=== PATIENT | female | born 1965 | race Caucasian/White ===

== ENCOUNTER 2017-07-10 13:55 | Day surgery (SDC) | payer OTHER ==
[~2017-07-10] VITALS: Ht 167.6 cm; Wt 91.1 kg
[~2017-07-10 13:55] MED LIST: AMIO200T PO; GEMF600T PO; LOSA100T7 PO; METO-335 PO; RIVA20TA PO; SUMA100T9 PO
[2017-07-10] MEDS ORDERED: FUROSEMIDE (14:40)
[2017-07-10] MEDS ORDERED: LISINOPRIL (14:40)
[2017-07-10] MEDS ORDERED: SPIRONOLACTONE (14:40)
[2017-07-10 14:43] VITALS: Ht 167.6 cm; Wt 91.1 kg
[2017-07-10 15:54] VITALS: BP 134/70; PULSE 67; RESP 20
[2017-07-10] MEDS ORDERED: MIDAZOLAM 1 MG/ML 2 ML INJ ONE ×3 (17:17)
[2017-07-10] MEDS ORDERED: FENTAnyl 50 MCG/ML VIAL ONE (17:17)
--- NOTE | 2017-07-10 17:26 | OPPN ---
Date/Time of Note Date/Time of Note DATE: 07/10/17 TIME: 17:21 Proc Note GI Procedure Date 07/10/17 Indication: screening/surveillance Pre-procedure Diagnosis CRC screening Post-procedure Diagnosis Impression: More than 5 cm semicircumferential mass sigmoid colon. Biopsied and localization tattoo applied. 3 mm polyp in the proximal ascending colon. Ablated Otherwise normal colonoscopy to cecum Moderate-sized internal hemorrhoids. Plan: Review pathology as soon as available Referral for CT abdomen and pelvis with oral and IV contrast Surgical and oncological consults Surveillance colonoscopy in 1 year . Procedure Performed: Other (Colonoscopy plus ablation. Colonoscopy plus biopsies. Colonoscopy plus localization tattoo) Surgeon KRISTOPHER SCHMIDT MD [employer] none Anesthesia Type: MAC, moderate sedation (Versed 2 mg/fentanyl 5 mcg) Tourniquet Time none EBL none Transfusion required none Biopsy 1: Ascending colon polyp Biopsy 2: Mass sigmoid colon Grafts/Implants none Tubes/Drains none Complication(s) none Disposition: home Procedure Description After informed consent, with the patient/relatives understanding the procedure, its indications and potential risks and complications, including but not limited to: Allergic reaction, bleeding, perforation, infection, and after all pertinent questions were answered to the patient's satisfaction, the patient/ relatives signed the witnessed informed consent. Following this, premedication was administered slowly IV push under careful cardiovascular and respiratory monitoring with pulse OXIMETRY, automatic blood pressure, and surveillance monitor. Once the sedative effect was achieved, the patient was placed in the left lateral decubitus position, digital rectal examination was performed. The colonoscope was then introduced and advanced under visual control throughout all segments of the colon including: the rectum, sigmoid, descending colon, splenic flexure, transverse colon, hepatic flexure, ascending colon and finally reaching the cecum which was clearly identified by transillumination, finger indentation and the ileocecal valve. Careful examination of the mucosa of the lower gastrointestinal tract both on insertion as well as withdrawal of the instrument disclosed the following findings: PREPARATION QUALITY: [Adequate], RECTAL EXAM: The anorectal area was visualized examined and digital rectal examination performed with the following findings: No evidence of perirectal disease, no masses. COLONIC MUCOSA: The mucosa of all segments of the colon was carefully examined and showed the following findings: There is a 3 mm polyp in the proximal ascending colon. Ablated there is a mass in the sigmoid colon which is semi-circumferential measures more than 5 cm, he has clearly a malignant appearance. Multiple biopsies were obtained. Localization tattoo was applied to the distal margin of the lesion. Moderate size internal hemorrhoids otherwise the examined mucosa appears within normal limits. There is no evidence of inflammatory changes, diverticular formation, vascular malformation, or any other abnormality. The instrument was then withdrawn, the patient tolerated the procedure well and was transferred out of the Endoscopy Suite awake and in good condition to continue recovery under observation. Copies To: CC: KRISTOPHER SCHMIDT MD, MORDO MD Jul 10, 2017 17:26
[2017-07-10 18:11] VITALS: BP 140/68; RESP 14
== END 2017-07-10 18:10 | disposition home or self-care (01) ==
LOC: GIL 13:55
PROVIDERS: ATTEND Internal Medicine Gastroenterology
DX: Z12.11 Encounter for screening for malignant neoplasm of colon (principal); C18.7 Malignant neoplasm of sigmoid colon; D12.2 Benign neoplasm of ascending colon; K64.8 Other hemorrhoids; Z87.891 Personal history of nicotine dependence; I50.9 Heart failure, unspecified
CPT/HCPCS: 45380; 45388; 88305; J2250; J3010; Z7610

== ENCOUNTER 2017-07-23 22:42 | Inpatient (IN) | payer OTHER ==
[~2017-07-23] VITALS: Ht 167.6 cm; Wt 105.6 kg
[~2017-07-23 22:42] MED LIST changes: -AMIO200T PO; +FUROSEMIDE; -GEMF600T PO; +LISINOPRIL; -LOSA100T7 PO; -METO-335 PO; +SPIRONOLACTONE; -SUMA100T9 PO
[2017-07-24] MEDS ORDERED: SOD CHLORIDE 0.9% 500 ML IV STA (01:55)
[2017-07-24 02:40] LABS: ABNORMAL IP MESSAGE 1; HEMATOCRIT 22.6 % (37.0-47.0); MEAN CORPUSCULAR HEMOGLOBIN 21.5 pg (29.0-33.0); MEAN CORPUSCULAR HGB CONC 29.2 g/dl (32.0-37.0); MEAN CORPUSCULAR VOLUME 73.6 fl (82.0-101.0); MEAN PLATELET VOLUME 10.4 fl (7.4-10.4); PLATELET COUNT 319 10^3/UL (140-415); RED BLOOD COUNT 3.07 10^6/ul (4.20-5.40); RED CELL DISTRIBUTION WIDTH 14.2 % (11.5-14.5); RETICULOCYTE COUNT % 1.9 % (0.5-1.5); WHITE BLOOD COUNT 7.1 10^3/ul (4.8-10.8)
[2017-07-24 02:46] LABS: HEMOGLOBIN 6.6 g/dl (12.0-16.0); POSITIVE DIFF @See below
[2017-07-24 03:06] LABS: ALBUMIN 3.9 g/dl (3.3-4.9); ALBUMIN/GLOBULIN RATIO 1.21; BILIRUBIN,INDIRECT 1.4 mg/dl (0-1.1); BILIRUBIN,TOTAL 1.4 mg/dl (0.2-1.3); CREATININE 0.82 mg/dl (0.44-1.00); POTASSIUM 3.9 mmol/L (3.5-5.1); TOTAL PROTEIN 7.1 g/dl (6.1-8.1)
[2017-07-24] MEDS ORDERED: morphine 4 MG/ML VIAL IV STA ×2 (03:37→07:17)
[2017-07-24] MEDS ORDERED: ONDANSETRON 4 MG INJ IV STA (03:37)
[2017-07-24 03:49] LABS: EOSINOPHILS # 0.2 10^3/ul (0.0-0.5); MONOCYTE # 0.1 10^3/ul (0.3-0.9)
--- NOTE | 2017-07-24 04:38 | ERD ---
ER Documentation Chief Complaint Chief Complaint SEVERE WEAKNESS. BLOODY STOOLS. COLON CA DIAGNOSED 2 WKS AGO. HGB 7 HPI 51-year-old female coming in with complaints of severe weakness and bloody stools. Patient diagnosed colon cancer recently. She has noticed that her stools were dark and tarry along with blood streaks. No fevers no chills. No focal neurological complaints. No other current issues. Patient says weakness is worse when she gets up from a lying position. No syncope, no palpitations, no chest pain ROS All systems reviewed and are negative except as per history of present illness. Medications Home Meds Reported Medications [Furosemide] No Conflict Check 07/10/17 [Spironolactone] No Conflict Check 07/10/17 [Lisinopril] No Conflict Check 07/10/17 Rivaroxaban* (Xarelto*) 20 Mg Tablet, 20 MG PO DAILY, TAB 03/10/14 Allergies Allergies: Coded Allergies: Penicillins (Unverified Allergy, Unknown, 03/11/14) RE-ENTERED UNCODED ALLERGY CODED Sulfa (Sulfonamide Antibiotics) (Unverified Allergy, Unknown, 03/11/14) RE-ENTERED UNCODED ALLERGY CODED amoxicillin (Verified Allergy, Unknown, 03/10/14) codeine (Verified Allergy, Unknown, 03/10/14) hydrocodone bit (Verified Allergy, Unknown, 03/10/14) PMhx/Soc History of Surgery: Yes (RIGHT ANKLE, HYSTERECTOMY) Anesthesia Reaction: No Hx Neurological Disorder: No Hx Respiratory Disorders: No Hx Cardiac Disorders: No (HTN, CHF, AFIB) Hx Psychiatric Problems: No Hx Miscellaneous Medical Probl: No Hx Alcohol Use: No Hx Substance Use: Yes (QUIT MARIJUANA MARCH 2017) Hx Tobacco Use: Yes (QUIT CIGARETTES 30 YEARS AGO) Smoking Status: Former smoker Physical Exam Vitals Vital Signs Date Time Temp Pulse Resp B/P Pulse Ox O2 Delivery O2 Flow Rate FiO2 07/24/17 02:15 97.6 100 18 125/77 100 Room Air 07/24/17 01:05 98.6 69 18 117/72 100 Room Air 07/23/17 22:52 98.1 82 18 147/84 100 Physical Exam Const: [] Head: Atraumatic Eyes: Normal Conjunctiva ENT: Normal External Ears, Nose and Mouth. Neck: Full range of motion..~ No meningismus. Resp: Clear to auscultation bilaterally Cardio: Regular rate and rhythm, no murmurs Abd: Soft, non tender, non distended. Normal bowel sounds Skin: No petechiae or rashes Back: No midline or flank tenderness Ext: No cyanosis, or edema Neur: Awake and alert Psych: Normal Mood and Affect Result Diagram: 07/24/1722407/24/17 0225 Results 24 hrs Laboratory Tests Test 07/24/17 02:25 White Blood Count 7.110^3/ul Red Blood Count 3.0710^6/ul Hemoglobin 6.6g/dl Hematocrit 22.6% Mean Corpuscular Volume 73.6fl Mean Corpuscular Hemoglobin 21.5pg Mean Corpuscular Hemoglobin Concent 29.2g/dl Red Cell Distribution Width 14.2% Platelet Count 10044^3/UL Mean Platelet Volume 10.4fl Neutrophils % % Segmented Neutrophils % (Manual) 65% Band Neutrophils % (Manual) 2% Lymphocytes % % Lymphocytes % (Manual) 28% Monocytes % % Monocytes % (Manual) 2% Eosinophils % % Eosinophils % (Manual) 3% Basophils % % Nucleated Red Blood Cells % 0.0/100WBC Neutrophils # 10^3/ul Neutrophils # (Manual) 4.610^3/ul Band Neutrophils # 0.110^3/ul Absolute Lymphocytes (Manual) Pending Lymphocytes # 2.010^3/ul Monocytes # 0.110^3/ul Absolute Monocytes (Manual) Pending Eosinophils # 0.210^3/ul Basophils # 10^3/ul Nucleated Red Blood Cells # 10^3/ul Polychromasia 1+ Hypochromasia 1+ Microcytosis 1+ Absolute Reticulocyte Count 0.059X10^6 Percent Reticulocyte Count 1.9% Sodium Level 139mmol/L Potassium Level 3.9mmol/L Chloride Level 104mmol/L Carbon Dioxide Level 29mmol/L Anion Gap 10 Blood Urea Nitrogen 17mg/dl Creatinine 0.82mg/dl Glucose Level 92mg/dl Calcium Level 9.0mg/dl Total Bilirubin 1.4mg/dl Direct Bilirubin 0.00mg/dl Indirect Bilirubin 1.4mg/dl Aspartate Amino Transf (AST/SGOT) 18IU/L Alanine Aminotransferase (ALT/SGPT) 28IU/L Alkaline Phosphatase 56IU/L Lactate Dehydrogenase 376IU/L Total Protein 7.1g/dl Albumin 3.9g/dl Globulin 3.20g/dl Albumin/Globulin Ratio 1.21 Current Medications Medications (Trade) Dose Ordered Sig/Fela Route PRN Reason Start Time Stop Time Status Last Admin Dose Admin Sodium Chloride (NS) 500 ml @ 500 mls/hr Q1H STAT IV 07/24/17 01:55 07/24/17 02:54 DC 07/24/17 02:39 Morphine Sulfate (morphine) 4 mg ONCE STAT IV 07/24/17 03:37 07/24/17 03:39 DC 07/24/17 03:47 Ondansetron HCl (Zofran Inj) 4 mg ONCE STAT IV 07/24/17 03:37 07/24/17 03:39 DC 07/24/17 03:47 Procedures/MDM Medical decision-makin-year-old female with lower GI bleeding consistent with a history of colon cancer. Patient will be transfused and admitted to [facility] physician Dr. Danielle Departure Diagnosis: Primary Impression: GI bleed GI bleed type/associated pathology: unspecified gastrointestinal hemorrhage type Qualified Code: K92.2 - Gastrointestinal hemorrhage, unspecified gastrointestinal hemorrhage type Condition: Stable KHADIJAH SCHAFER Jul 24, 2017 04:38
[2017-07-24] MEDS ORDERED: FURO40TA4 PO (05:43)
[2017-07-24] MEDS ORDERED: SPIR25TA PO (05:43)
[2017-07-24] MEDS ORDERED: DIGO125T19 PO (05:43)
[2017-07-24] MEDS ORDERED: LISI20TA11 PO (05:43)
[2017-07-24] MEDS ORDERED: ACET-141 PO (05:45)
[2017-07-24] MEDS ORDERED: SIME180C4 PO (05:45)
[2017-07-24] MEDS ORDERED: IBUP200C PO (05:45)
[2017-07-24] MEDS ORDERED: LORA10TA3 PO (05:46)
[2017-07-24] MEDS ORDERED: ACETAMINOPHEN 325 MG TAB PO PRN ×2 (06:30→07:00)
[2017-07-24] MEDS ORDERED: SOD CHLORIDE 0.9% 250 ML IV* ONE (06:39)
[2017-07-24] MEDS ORDERED: ACETAMINOPHEN 325 MG TAB PO SCH (07:00)
[2017-07-24] MEDS ORDERED: FUROSEMIDE 40 MG INJ IV SCH (07:00)
[2017-07-24] MEDS ORDERED: DIPHENHYDRAMINE 25 MG CAP PO PRN (07:00)
[2017-07-24] MEDS: ONDANSETRON 4 MG INJ IV PRN ×4 (07:25→18:37)
[2017-07-24 07:38] LABS: ANISOCYTOSIS 2+ (0-0); EOSINOPHILS % (M) 1 % (0-7); IRON 24 ug/dl (35-150); MICROCYTOSIS 2+ (0-0); MONOCYTES % (M) 9 % (0-11); PLATELET ESTIMATE NORMAL; REACTIVE LYMPHOCYTES% (M) 3 % (0-0)
[2017-07-24 07:47] LABS: TOTAL IRON BINDING CAPACITY 518 ug/dl (241-421)
[2017-07-24 08:45] LABS: FOLATE 14.1 ng/ml (2.8-20.0)
[2017-07-24] MEDS: LORATADINE 10 MG TAB PO SCH (09:00)
[2017-07-24] MEDS: SPIRONOLACTONE 25 MG TAB PO SCH (09:00)
[2017-07-24] MEDS: LISINOPRIL 20 MG TAB PO SCH (09:00)
[2017-07-24 10:02] LABS: BASOPHILS % 0.5 % (0.0-2.0); EOSINOPHILS # 0.1 10^3/ul (0.0-0.5); EOSINOPHILS % 2.2 % (0.0-7.0); HEMATOCRIT 28.7 % (37.0-47.0); HEMOGLOBIN 8.9 g/dl (12.0-16.0); LYMPHOCYTES # 1.9 10^3/ul (0.8-2.9); LYMPHOCYTES % 31.6 % (15.0-51.0); MEAN CORPUSCULAR HEMOGLOBIN 23.4 pg (29.0-33.0); MEAN CORPUSCULAR VOLUME 75.3 fl (82.0-101.0); MEAN PLATELET VOLUME 10.1 fl (7.4-10.4); MONOCYTE # 0.4 10^3/ul (0.3-0.9); MONOCYTES % 6.6 % (0.0-11.0); NEUTROPHIL # 3.6 10^3/ul (1.6-7.5); NEUTROPHILS % 58.8 % (39.0-77.0); PLATELET COUNT 304 10^3/UL (140-415); RED BLOOD COUNT 3.81 10^6/ul (4.20-5.40); RED CELL DISTRIBUTION WIDTH 14.9 % (11.5-14.5)
[2017-07-24] MEDS: DEXTROSE 5%-0.9% NACL 1,000 ML IV SCH (11:28)
[2017-07-24 11:56] LABS: INR 0.97; PROTIME 12.9 Sec (12.2-14.2)
[2017-07-24 11:57] LABS: PARTIAL THROMBOPLASTIN TIME 25.9 Sec (25.0-35.0)
[2017-07-24] MEDS ORDERED: morphine 4 MG/ML VIAL IV PRN (12:27)
[2017-07-24 12:33] VITALS: TEMP 98.2
[2017-07-24 12:45] VITALS: BMI 33.2
--- NOTE | 2017-07-24 12:49 | HP ---
Date/Time of Note Date/Time of Note DATE: 07/24/17 TIME: 12:17 Assessment/Plan VTE Prophylaxis VTE Prophylaxis Intervention: SCD's Assessment/Plan Assessment/Plan 51 year old female with: 1. Rectal bleeding, bright red blood per rectum, significant symptomatic anemia with hemoglobin of 6.6 on admission with known sigmoid mass. Status post 2 units packed red blood cells hemoglobin up to 8.9. Patient already has been "cleared" by cardiology as an outpatient as of 07/22 to proceed with surgical intervention regarding her sigmoid mass. I have contacted Dr. Aldana who is the surgeon she has been assigned to, he will see the patient today. Check hemoglobin later today, additional transfusion as needed to keep hemoglobin above 8.0. Check PT, PTT and INR. EKG is at baseline, no acute changes. Chest x-ray ordered. 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 We will also obtain records of her latest echocardiogram which was done in January 2017 Patient is currently n.p.o. except for medications. 2. Atrial fibrillation, chronic, mostly rate controlled. Check digoxin level, continue current medications. Patient off anticoagulation as of Sunday 07/22, therefore she may proceed with surgery as of today if needed. 3. Chronic congestive heart failure, per report from patient, she has been on diuretic as an outpatient which we held at this time given ongoing acute bleeding. Will obtain latest echocardiogram from her propeller layout worker's office. Monitor volume status. On gentle IV fluids while n.p.o. 4. Hypertension, antihypertensive of been resumed however needs to be held for systolic blood pressure less than 110 in setting of bleeding especially. 5. Hyperlipidemia: Resume home medications when able to take p.o. Prophylaxis: SCDs to lower extremity for DVT prophylaxis, Pepcid for GI prophylaxis. Disposition: Patient currently n.p.o., she already has obtained cardiac clearance for her procedure, Dr. Aldana has been consulted, when ever she is scheduled, she may proceed with her surgical intervention from the medical standpoint. 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 Patient reports that for the past 3 days at least she has been having ongoing dizziness, yesterday it got significantly worse with dyspnea on exertion and got concerned. She has been having ongoing rectal bleeding for a while now, yesterday she had bowel movements up to 8 oh with rectal bleeding and today she had a large bowel movement with bright red blood per rectum no clots. She complains of rectal pain radiating up towards through her abdomen. She reports episodes of nausea. She does have a history of atrial fibrillation, she has been taken off Xarelto as of Sunday 07/22. She already has seen Dr. Aldana, general surgery, and had her procedure scheduled for this coming Sunday 07/29 however given current severe symptomatic anemia and ongoing rectal bleeding, Dr. Aldana has been contacted, he has asked for the patient to remain n.p.o. and he will evaluate the patient and try to schedule the procedure earlier. He has requested for the patient to be evaluated by internal medicine for any additional clearance if needed. Her EKG, chest x-ray are pending. Patient did have cardiology evaluation as an outpatient this past Saturday and was risk stratified and cleared for the procedure. We will obtain the records from Dr. Kim's office. ROS Constitutional: fatigue, nausea Eyes: no complaints ENT: no complaints Respiratory: other (Dyspnea on exertion) Genitourinary: no complaints Musculoskeletal: no complaints Skin: no complaints Neurologic: no complaints Lymphatic: no complaints PMH/Family/Social Past Medical History Atrial fibrillation, chronic, off anticoagulation since 07/22 Hypertension Chronic anemia secondary to occult bleeding and now overt rectal bleeding Hyperlipidemia Congestive heart failure, chronic, unclear if systolic or diastolic dysfunction , will follow-up 2D echocardiogram results Past Surgical History Status post hysterectomy Status post knee surgery Status post ablation by Dr. Mendiola Status post multiple cardioversions including 1 after ablation was done Family History Significant Family History: no pertinent family hx (Cleats almost 20 years ago) Social History Alcohol Use: none Smoking Status: Former smoker (Quit 20 years ago) Drug Use: marijuana (Patient was a daily marijuana user but quit 100 days ago ) Exam/Review of Systems Vital Signs Vitals Vital Signs Date Time Temp Pulse Resp B/P Pulse Ox O2 Delivery O2 Flow Rate FiO2 10/25/17 10:30 82 16 109/75 100 Room Air 07/24/17 08:25 98.2 Intake and Output 07/23/17 07/23/17 07/24/17 14:59 22:59 06:59 Intake Total 850 ml Output Total 300 ml Balance 550 ml Exam Constitutional: alert, oriented, well developed Psych: no complaints Head: normocephalic Eyes: nl conjunctiva ENMT: nl external ears & nose, nl lips & teeth, nl nasal mucosa & septum Respiratory: clear to auscultation, normal air movement Cardiovascular: irregular rhythm (Chronic atrial fibrillation) Gastrointestinal: soft, tender (Mild diffuse abdominal pain, most pain is perirectal) Musculoskeletal: nl extremities to inspection, nl gait and stance, other (No edema, clubbing or cyanosis) Extremities: normal pulses 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, nl mental status, nl speech, nl strength Labs Result Diagram: 07/24/1744 07/24/17 0225 Medications Medications Current Medications Digoxin (Digoxin) 0.125 mg DAILY@13 PO ; Start 07/24/17 at 13:00 Lisinopril (Zestril) 20 mg DAILY PO ; Start 07/24/17 at 09:00 Loratadine (Claritin) 10 mg DAILY PO ; Start 07/24/17 at 09:00 Spironolactone (Aldactone) 25 mg DAILY PO ; Start 07/24/17 at 09:00 Acetaminophen (Tylenol Tab) 650 mg ONCE PO Last administered on 07/24/17 06: 53; Admin Dose 650 MG; Start 07/24/17 at 07:00; Stop 07/25/17 at 06:59 Acetaminophen (Tylenol Tab) 650 mg Q4H PRN PO pain/fever; Start 07/24/17 at 07 :00 Ondansetron HCl (Zofran Inj) 4 mg Q4H PRN IV nausea; Start 07/24/17 at 07:00 Diphenhydramine HCl 25 mg 25 mg Q6H PRN PO itch; Start 07/24/17 at 07:00 Dextrose/Sodium Chloride (D5-NS) 1,000 ml @ 75 mls/hr [id number] IV Last administered on 07/24/17 11:28; Admin Dose 75 MLS/HR; Start 07/24/17 at 11:00 RAE CALVO Jul 24, 2017 12:38
[2017-07-24 13:02] VITALS: PULSE 62
[2017-07-24 13:36] VITALS: BP 137/60; RESP 18
[2017-07-24] MEDS: DIGOXIN 0.125 MG TAB PO SCH (14:25)
[2017-07-24 15:30] VITALS: BP 122/66; RESP 16
--- NOTE | 2017-07-24 15:30 | RADRPT ---
PROCEDURE: XR Chest. CLINICAL INDICATION: Shortness of breath. Preoperative. TECHNIQUE: Single frontal view. COMPARISON: 03/10/2014. FINDINGS: The lungs are clear. The heart size is normal. There is no pleural effusion. There is no pneumothorax. IMPRESSION: 1. Normal chest radiograph. 2. No change from 03/10/2014. RPTAT: QQ .Kana Renteria MD, MD Date Time Electronically viewed and signed by .Kana Renteria MD, on 07/24/2017 15:29 .R/
[2017-07-24 16:05] VITALS: PULSE 65
[2017-07-24 18:35] LABS: HEMATOCRIT 28.2 % (37.0-47.0); HEMOGLOBIN 8.4 g/dl (12.0-16.0)
[2017-07-24] MEDS: morphine 2 MG INJ IV PRN (18:38)
[2017-07-24 20:00] VITALS: BP 127/76; PULSE 65; RESP 18
[2017-07-24] MEDS: FAMOTIDINE 20 MG INJ IV SCH (21:36)
[2017-07-25] VITALS (12 sets, daily range): BP systolic 119–141; BP diastolic 58–80; PULSE 57–73; RESP 17–19
[2017-07-25] MEDS: morphine 2 MG INJ IV PRN ×5 (00:30→22:20)
[2017-07-25] MEDS: ONDANSETRON 4 MG INJ IV PRN ×4 (00:31→22:20)
[2017-07-25] MEDS: DEXTROSE 5%-0.9% NACL 1,000 ML IV SCH ×2 (00:34→12:03)
[2017-07-25 05:48] LABS: BASOPHILS % 0.4 % (0.0-2.0); EOSINOPHILS # 0.3 10^3/ul (0.0-0.5); EOSINOPHILS % 4.6 % (0.0-7.0); HEMATOCRIT 26.9 % (37.0-47.0); LYMPHOCYTES # 2.4 10^3/ul (0.8-2.9); MEAN CORPUSCULAR HEMOGLOBIN 22.5 pg (29.0-33.0); MEAN CORPUSCULAR HGB CONC 29.7 g/dl (32.0-37.0); MEAN CORPUSCULAR VOLUME 75.8 fl (82.0-101.0); MEAN PLATELET VOLUME 10.1 fl (7.4-10.4); MONOCYTE # 0.4 10^3/ul (0.3-0.9); MONOCYTES % 7.4 % (0.0-11.0); NEUTROPHIL # 2.5 10^3/ul (1.6-7.5); NEUTROPHILS % 44.4 % (39.0-77.0); PLATELET COUNT 287 10^3/UL (140-415); RED BLOOD COUNT 3.55 10^6/ul (4.20-5.40); WHITE BLOOD COUNT 5.7 10^3/ul (4.8-10.8)
[2017-07-25 06:37] LABS: PHOSPHORUS 4.6 mg/dl (2.5-4.9)
[2017-07-25 06:57] LABS: CALCIUM 8.9 mg/dl (8.4-10.2); CREATININE 0.93 mg/dl (0.44-1.00); POTASSIUM 4.1 mmol/L (3.5-5.1)
--- NOTE | 2017-07-25 08:37 | CONS ---
DATE OF ADMISSION: 07/24/2017 DATE OF CONSULTATION: GENERAL SURGERY CONSULTATION INDICATION: This is a 51-year-old female diagnosed with bleeding sigmoid colon. She was admitted t o the ER for lower GI bleed with symptomatic anemia. She was initially seen in the office and sched uled for elective surgery. She had her scheduled operation time for Saturday; however, she was on blo od thinners for her AFib. This was stopped 2 days ago. She had cardiac clearance for the surgery, however, she presented with rectal bleeding for the past 2 days with symptomatic anemia. [facility] was consulted for evaluation and management. PAST MEDICAL HISTORY: Sigmoid bleeding colon cancer, AFib, congestive heart failure, hypertension, hyperlipidemia. LABORATORY DATA: White blood cell count 7.1, hemoglobin initially 6.6, with 2 units up to 8.9, keri tocrit is 20.7, platelets of 304. Chemistries: Sodium is 139, potassium 3.9, chloride is 104, carb on dioxide is 29, BUN is 17, creatinine 0.8, glucose 92, calcium is 9.0, alkaline phosphatase is 56. AST is 18, ALT is 28. INR is 0.9. PHYSICAL EXAMINATION: VITAL SIGNS: Temperature is 98.2, pulse was as high as 116, currently 78, respiratory rate is 18, b lood pressure is 124/76. GENERAL: A well-nourished female, obese. CARDIOVASCULAR: AFib. LUNGS: Clear to auscultation. ABDOMEN: Soft. EXTREMITIES: Warm, no cyanosis. ASSESSMENT AND PLAN: This is a 51-year-old female with sigmoid colon cancer that is apparently blee ding and caused a lower gastrointestinal bleed. She was transfused. She is also on blood thinners, which had been stopped 2 days ago. We will continue to assess for bleeding for the next 24 hours. If she does not bleed, we will start a diet and make sure she is medically optimized for surgery on Saturday. We will continue to monitor daily. Dictated By: MANDIE BOTELLO MD SB/VINNY Conf#: [id number] DID#: [id number] CC: SHANDA PILLAI MD;*EndCC*
[2017-07-25] MEDS: FAMOTIDINE 20 MG INJ IV SCH ×2 (08:47→21:06)
[2017-07-25] MEDS: LISINOPRIL 20 MG TAB PO SCH (08:47)
[2017-07-25] MEDS: LORATADINE 10 MG TAB PO SCH (08:48)
[2017-07-25] MEDS: SPIRONOLACTONE 25 MG TAB PO SCH (08:48)
--- NOTE | 2017-07-25 08:55 | PN ---
Date/Time of Note Date/Time of Note DATE: 07/25/17 TIME: 08:53 Assessment/Plan VTE Prophylaxis VTE Prophylaxis Intervention: SCD's Lines/Catheters IV [facility] Peripheral IV Assessment/Plan Chief Complaint/Hosp Course actively bleeding sigmoid colon cancer with symptomatic anemia patient was transfused 2 units prbc due to the nature of the active bleeding will transfer 2 more units and schedule surgery tomorrow Problems: Assessment/Plan actively bleeding sigmoid colon cancer -transfer 2 more units schedule for lap possible open left hemicolectomy possible open possible colostomy Subjective 24 Hr Interval Summary Free Text/Dictation serial H/H appears that she is continually bleeding Exam/Review of Systems Vital Signs Vitals Vital Signs Date Time Temp Pulse Resp B/P Pulse Ox O2 Delivery O2 Flow Rate FiO2 07/25/17 08:04 60 07/25/17 07:36 98.2 19 120/58 100 07/24/17 12:33 Room Air Intake and Output 07/24/17 07/24/17 07/25/17 15:00 23:00 07:00 Intake Total 150 ml 525 ml 10 ml Output Total 1300 ml Balance -1150 ml 525 ml 10 ml Exam nonspecific exam, no peritoneal signs Results Result Diagram: 07/25/1751607/25/17516 Results 24 hrs Laboratory Tests Test 07/24/17 09:44 07/24/17 11:15 07/24/17 18:12 07/25/17 05:17 White Blood Count 6.0 5.7 Red Blood Count 3.81 #L 3.55 L Hemoglobin 8.9 #L 8.4 L 8.0 L Hematocrit 28.7 #L 28.2 L 26.9 L Mean Corpuscular Volume 75.3 L 75.8 L Mean Corpuscular Hemoglobin 23.4 L 22.5 L Mean Corpuscular Hemoglobin Concent 31.0 L 29.7 L Red Cell Distribution Width 14.9 H 15.0 H Platelet Count 304 287 Mean Platelet Volume 10.1 10.1 Neutrophils % 58.8 44.4 Lymphocytes % 31.6 43.0 Monocytes % 6.6 7.4 Eosinophils % 2.2 4.6 Basophils % 0.5 0.4 Nucleated Red Blood Cells % 0.0 0.0 Neutrophils # 3.6 2.5 Lymphocytes # 1.9 2.4 Monocytes # 0.4 0.4 Eosinophils # 0.1 0.3 Basophils # 0.0 0.0 Nucleated Red Blood Cells # 0.0 0.0 Prothrombin Time 12.9 Prothrombin Time Ratio 1.0 INR International Normalized Ratio 0.97 Activated Partial Thromboplast Time 25.9 Digoxin Level < 0.4 L Sodium Level 144 Potassium Level 4.1 Chloride Level 107 Carbon Dioxide Level 31 Anion Gap 10 Blood Urea Nitrogen 14 Creatinine 0.93 Glucose Level 87 Calcium Level 8.9 Phosphorus Level 4.6 Magnesium Level 2.0 Test 07/25/17 06:30 Lab Scanned Report BLOOD TRANSFUSION Medications Medications Current Medications Digoxin (Digoxin) 0.125 mg DAILY@13 PO Last administered on 07/24/17 14:25; Admin Dose 0.125 MG; Start 07/24/17 at 13:00 Lisinopril (Zestril) 20 mg DAILY PO Last administered on 07/25/17 08:47; Admin Dose 20 MG; Start 07/24/17 at 09:00 Loratadine (Claritin) 10 mg DAILY PO Last administered on 07/25/17 08:48; Admin Dose 10 MG; Start 07/24/17 at 09:00 Spironolactone (Aldactone) 25 mg DAILY PO Last administered on 07/25/17 08:48 ; Admin Dose 25 MG; Start 07/24/17 at 09:00 Acetaminophen (Tylenol Tab) 650 mg Q4H PRN PO pain/fever; Start 07/24/17 at 07 :00 Ondansetron HCl (Zofran Inj) 4 mg Q4H PRN IV nausea Last administered on 05:31; Admin Dose 4 MG; Start 07/24/17 at 07:00 Diphenhydramine HCl 25 mg 25 mg Q6H PRN PO itch; Start 07/24/17 at 07:00 Dextrose/Sodium Chloride (D5-NS) 1,000 ml @ 75 mls/hr [id number] IV Last administered on 07/25/17 00:34; Admin Dose 75 MLS/HR; Start 07/24/17 at 11:00 Morphine Sulfate (morphine) 2 mg Q4H PRN IV PAIN LEVEL 1-5 Last administered on 07/25/17 05:31; Admin Dose 2 MG; Start 07/24/17 at 12:27 Morphine Sulfate (morphine) 4 mg Q4H PRN IV PAIN LEVEL 6-10; Start 07/24/17 at 12:27 Famotidine (Pepcid Iv) 20 mg BID IV Last administered on 07/25/17 08:47; Admin Dose 20 MG; Start 07/24/17 at 21:00 Hilario BOTELLO Jul 25, 2017 08:55
[2017-07-25] MEDS: DIGOXIN 0.125 MG TAB PO SCH (12:03)
--- NOTE | 2017-07-25 13:34 | RADRPT ---
Vent Rate: 59 bpm RR Interval: 0 msec OK Interval: 184 msec QRS Duration: 164 msec QT Interval: 484 msec QTC Interval: 479 msec P-R-T [place]: 38 - -13 - 82 degrees Sinus bradycardia with marked sinus arrhythmia Left bundle branch block Abnormal ECG Electronically Signed By: Fercho Mojica [id number]
--- NOTE | 2017-07-25 14:58 | PN ---
Date/Time of Note Date/Time of Note DATE: 07/25/17 TIME: 14:43 Assessment/Plan VTE Prophylaxis VTE Prophylaxis Intervention: SCD's Lines/Catheters IV Catheter Type (from Nrsg): Peripheral IV Assessment/Plan Assessment/Plan 51 year old female with: 1. Rectal bleeding, bright red blood per rectum, significant symptomatic anemia with hemoglobin of 6.6 on admission with known sigmoid mass. Status post 2 units pRBC yesterday, hemoglobin down to 8.0 this morning, patient to receive additional 2 units packed red blood cells in preparation for surgical intervention tomorrow. Appreciate recommendations from Dr. Aldana EKG is at baseline, no acute changes. Chest x-ray within normal limits, per outpatient cardiology evaluation already done, patient may proceed with surgical procedure (maximum time off Xarelto prior to surgical procedure is 3 days, patient has been off for 4 days as of today) Patient to be n.p.o. 2. Atrial fibrillation, chronic, mostly rate controlled. Check digoxin level, continue current medications. Patient off anticoagulation as of Sunday 07/22, therefore she may proceed with surgery as of yesterday. 3. ? Chronic congestive heart failure, with no diastolic dysfunction and ejection fraction of 55% on latest outpatient echocardiogram in January 2017 She has been on diuretic as an outpatient which we held at this time given ongoing acute bleeding. Monitor volume status. On gentle IV fluids while n.p.o. 4. Hypertension, antihypertensive of been resumed however needs to be held for SBP<110 in setting of bleeding especially. 5. Hyperlipidemia: Resume home medications when able to take p.o. Prophylaxis: SCDs to lower extremity for DVT prophylaxis, Pepcid for GI prophylaxis. Disposition: Patient to receive 2 units of packed red blood cells today, prepping for surgical procedure tomorrow with Dr. Aldana. Subjective 24 Hr Interval Summary Free Text/Dictation Patient comfortable, on room air, no complaints. Receiving additional 2 units of packed red blood cells, will give Lasix in between the 2 units. Currently on the schedule for surgical resection of her sigmoid mass tomorrow Exam/Review of Systems Vital Signs Vitals Vital Signs Date Time Temp Pulse Resp B/P Pulse Ox O2 Delivery O2 Flow Rate FiO2 07/25/17 12:08 59 07/25/17 11:43 97.6 18 138/77 100 07/24/17 12:33 Room Air Intake and Output 07/24/17 07/24/17 07/25/17 14:59 22:59 06:59 Intake Total 150 ml 525 ml 10 ml Output Total 1550 ml Balance -1400 ml 525 ml 10 ml Exam Constitutional: alert, oriented, well developed Respiratory: clear to auscultation, normal air movement Cardiovascular: nl pulses, regular rate and rhythm Gastrointestinal: other (Mostly lower abdomen discomfort), soft Musculoskeletal: nl extremities to inspection, nl gait and stance Extremities: normal pulses Neurological: 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 II-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 intact, nl mental status, nl speech, nl strength Results Result Diagram: 07/25/1751607/25/17516 Results 24 hrs Laboratory Tests Test 07/24/17 18:12 07/25/17 05:17 07/25/17 06:30 Hemoglobin 8.4 L 8.0 L Hematocrit 28.2 L 26.9 L White Blood Count 5.7 Red Blood Count 3.55 L Mean Corpuscular Volume 75.8 L Mean Corpuscular Hemoglobin 22.5 L Mean Corpuscular Hemoglobin Concent 29.7 L Red Cell Distribution Width 15.0 H Platelet Count 287 Mean Platelet Volume 10.1 Neutrophils % 44.4 Lymphocytes % 43.0 Monocytes % 7.4 Eosinophils % 4.6 Basophils % 0.4 Nucleated Red Blood Cells % 0.0 Neutrophils # 2.5 Lymphocytes # 2.4 Monocytes # 0.4 Eosinophils # 0.3 Basophils # 0.0 Nucleated Red Blood Cells # 0.0 Sodium Level 144 Potassium Level 4.1 Chloride Level 107 Carbon Dioxide Level 31 Anion Gap 10 Blood Urea Nitrogen 14 Creatinine 0.93 Glucose Level 87 Calcium Level 8.9 Phosphorus Level 4.6 Magnesium Level 2.0 Lab Scanned Report BLOOD TRANSFUSION Medications Medications Current Medications Digoxin (Digoxin) 0.125 mg DAILY@13 PO Last administered on 07/25/17 12:03; Admin Dose 0.125 MG; Start 07/24/17 at 13:00 Lisinopril (Zestril) 20 mg DAILY PO Last administered on 07/25/17 08:47; Admin Dose 20 MG; Start 07/24/17 at 09:00 Loratadine (Claritin) 10 mg DAILY PO Last administered on 07/25/17 08:48; Admin Dose 10 MG; Start 07/24/17 at 09:00 Spironolactone (Aldactone) 25 mg DAILY PO Last administered on 07/25/17 08:48 ; Admin Dose 25 MG; Start 07/24/17 at 09:00 Acetaminophen (Tylenol Tab) 650 mg Q4H PRN PO pain/fever; Start 07/24/17 at 07 :00 Ondansetron HCl (Zofran Inj) 4 mg Q4H PRN IV nausea Last administered on 10:48; Admin Dose 4 MG; Start 07/24/17 at 07:00 Diphenhydramine HCl 25 mg 25 mg Q6H PRN PO itch; Start 07/24/17 at 07:00 Dextrose/Sodium Chloride (D5-NS) 1,000 ml @ 75 mls/hr [id number] IV Last administered on 07/25/17 12:03; Admin Dose 75 MLS/HR; Start 07/24/17 at 11:00 Morphine Sulfate (morphine) 2 mg Q4H PRN IV PAIN LEVEL 1-5 Last administered on 07/25/17 14:16; Admin Dose 2 MG; Start 07/24/17 at 12:27 Morphine Sulfate (morphine) 4 mg Q4H PRN IV PAIN LEVEL 6-10; Start 07/24/17 at 12:27 Famotidine (Pepcid Iv) 20 mg BID IV Last administered on 07/25/17 08:47; Admin Dose 20 MG; Start 07/24/17 at 21:00 RAE CALVO Jul 25, 2017 14:54
[2017-07-25] MEDS ORDERED: FUROSEMIDE 20 MG INJ IV ONE (15:00)
[2017-07-25] MEDS ORDERED: VITAMIN A & D 5 GM OINT PACKET TOP ONE (22:23)
[2017-07-26] VITALS (24 sets, daily range): BP systolic 118–168; BP diastolic 60–88; PULSE 61–86; RESP 15–20
[2017-07-26] MEDS: DEXTROSE 5%-0.9% NACL 1,000 ML IV SCH ×2 (03:00→16:20)
[2017-07-26] MEDS: ONDANSETRON 4 MG INJ IV PRN ×4 (03:01→19:52)
[2017-07-26] MEDS: morphine 2 MG INJ IV PRN ×3 (03:02→11:18)
[2017-07-26] MEDS: FAMOTIDINE 20 MG INJ IV SCH ×2 (08:09→21:13)
[2017-07-26] MEDS: LORATADINE 10 MG TAB PO SCH (08:09)
[2017-07-26] MEDS: SPIRONOLACTONE 25 MG TAB PO SCH (08:10)
[2017-07-26] MEDS: LISINOPRIL 20 MG TAB PO SCH (08:10)
[2017-07-26] MEDS ORDERED: BUPIVACAINE 0.25% (MPF) 30 ML INJ ONE (12:41)
[2017-07-26] MEDS: DIGOXIN 0.125 MG TAB PO SCH (13:00)
[2017-07-26] MEDS ORDERED: LIDOCAINE 2% (SDV) 5 ML INJ ONE (13:06)
[2017-07-26] MEDS ORDERED: MEPERIDINE 100 MG INJ ONE (13:06)
[2017-07-26] MEDS ORDERED: GLYCOPYRROLATE 0.4 MG INJ ONE ×3 (13:06→15:41)
[2017-07-26] MEDS ORDERED: ROCURONIUM 50 MG INJ ONE ×3 (13:06→16:50)
[2017-07-26] MEDS ORDERED: PROPOFOL 20 ML ONE (13:06)
[2017-07-26] MEDS ORDERED: NEOSTIGMINE 3 MG/3 ML SYRINGE ONE ×2 (13:06→15:41)
[2017-07-26] MEDS ORDERED: SUCCINYLCHOLINE CHLORIDE 100 MG/5 ML SYG IV ONE (13:06)
[2017-07-26] MEDS ORDERED: CIPROFLOXACIN 400MG/D5W 200 ML ONE (13:24)
[2017-07-26] MEDS ORDERED: metroNIDAZOLE 500 MG/NS (PMX) 100 ML IVPB ONE (13:24)
--- NOTE | 2017-07-26 13:38 | PN ---
Date/Time of Note Date/Time of Note DATE: 07/26/17 TIME: 13:32 Assessment/Plan VTE Prophylaxis VTE Prophylaxis Intervention: SCD's Lines/Catheters IV Catheter Type (from Nrs): Peripheral IV Urinary Cath still in place: No Assessment/Plan Assessment/Plan 51 year old female with: 1. Rectal bleeding, bright red blood per rectum, significant symptomatic anemia with hemoglobin of 6.6 on admission with known sigmoid mass. Status post total of 4 units pRBC as of yesterday. Appreciate recommendations from Dr. Aldana EKG is at baseline, no acute changes. Chest x-ray within normal limits, per outpatient cardiology evaluation already done, patient may proceed with surgical procedure (maximum time off Xarelto prior to surgical procedure is 3 days, patient has been off for 4 days as of today) Patient NPO 2. Atrial fibrillation, chronic, mostly rate controlled. Check digoxin level, continue current medications. Patient off anticoagulation as of Sunday 07/22, therefore she may proceed with surgery as of admission. 3. ? Chronic congestive heart failure, with no diastolic dysfunction and ejection fraction of 55% on latest outpatient echocardiogram in January 2017 She has been on diuretics as an outpatient which we held at this time given ongoing acute bleeding. Monitor volume status. On gentle IV fluids while n.p.o. 4. Hypertension, antihypertensive of been resumed however needs to be held for SBP<110 in setting of bleeding especially. 5. Hyperlipidemia: Resume home medications when able to take p.o. Prophylaxis: SCDs to lower extremity for DVT prophylaxis, Pepcid for GI prophylaxis. Disposition: To OR for surgical procedure today with Dr. Aldana. Subjective 24 Hr Interval Summary Free Text/Dictation Patient remained stable, she has been taken to surgery this morning. Ongoing rectal bleeding. Exam/Review of Systems Vital Signs Vitals Vital Signs Date Time Temp Pulse Resp B/P Pulse Ox O2 Delivery O2 Flow Rate FiO2 07/26/17 12:06 65 07/26/17 11:15 98.1 20 133/73 96 07/24/17 12:33 Room Air Intake and Output 07/25/17 07/25/17 07/26/17 15:00 23:00 07:00 Intake Total 150 ml 400 ml Balance 150 ml 400 ml Exam Constitutional: alert, oriented, well developed Respiratory: clear to auscultation, normal air movement Cardiovascular: nl pulses, regular rate and rhythm Gastrointestinal: soft, tender (Some diffuse tenderness to palpation, mild) Musculoskeletal: nl extremities to inspection, nl gait and stance Extremities: normal pulses Neurological: STENOGRAPHIC COURT REPORTER II-XII intact, nl mental status, nl speech, nl strength Results Result Diagram: 07/25/1751607/25/17516 Results 24 hrs Laboratory Tests Test 07/26/17 05:21 Lab Scanned Report BLOOD TRANSFUSION Medications Medications Current Medications Digoxin (Digoxin) 0.125 mg DAILY@13 PO Last administered on 07/25/17 12:03; Admin Dose 0.125 MG; Start 07/24/17 at 13:00 Lisinopril (Zestril) 20 mg DAILY PO Last administered on 07/26/17 08:10; Admin Dose 20 MG; Start 07/24/17 at 09:00 Loratadine (Claritin) 10 mg DAILY PO Last administered on 07/26/17 08:09; Admin Dose 10 MG; Start 07/24/17 at 09:00 Spironolactone (Aldactone) 25 mg DAILY PO Last administered on 07/26/17 08:10 ; Admin Dose 25 MG; Start 07/24/17 at 09:00 Acetaminophen (Tylenol Tab) 650 mg Q4H PRN PO pain/fever; Start 07/24/17 at 07 :00 Ondansetron HCl (Zofran Inj) 4 mg Q4H PRN IV nausea Last administered on 11:15; Admin Dose 4 MG; Start 07/24/17 at 07:00 Diphenhydramine HCl 25 mg 25 mg Q6H PRN PO itch; Start 07/24/17 at 07:00 Dextrose/Sodium Chloride (D5-NS) 1,000 ml @ 75 mls/hr [id number] IV Last administered on 07/26/17 03:00; Admin Dose 75 MLS/HR; Start 07/24/17 at 11:00 Morphine Sulfate (morphine) 2 mg Q4H PRN IV PAIN LEVEL 1-5 Last administered on 07/26/17 11:18; Admin Dose 2 MG; Start 07/24/17 at 12:27 Morphine Sulfate (morphine) 4 mg Q4H PRN IV PAIN LEVEL 6-10; Start 07/24/17 at 12:27 Famotidine (Pepcid Iv) 20 mg BID IV Last administered on 07/26/17t 08:09; Admin Dose 20 MG; Start 07/24/17 at 21:00 RAE CALVO Jul 26, 2017 13:38
[2017-07-26] MEDS ORDERED: ONDANSETRON 4 MG INJ ONE (15:40)
[2017-07-26] MEDS ORDERED: METOCLOPRAMIDE 10 MG INJ ONE (15:40)
[2017-07-26] MEDS: SOD CHLORIDE 0.9% 1,000 ML IV SCH (17:10)
[2017-07-26] MEDS ORDERED: SUGAMMADEX SODIUM 200 MG/2 ML VIAL IV ONE (17:15)
[2017-07-26] MEDS ORDERED: hydrALAzine 20 MG INJ IV PRN (17:30)
[2017-07-26] MEDS ORDERED: ONDANSETRON 4 MG INJ IV PRN (17:30)
[2017-07-26] MEDS ORDERED: FENTAnyl 50 MCG/ML VIAL IV PRN ×3 (17:30)
[2017-07-26] MEDS ORDERED: EPHEDrine SULFATE 50 MG/5 ML SYG IV PRN (17:30)
[2017-07-26] MEDS ORDERED: CIPROFLOXACIN 400MG/D5W 200 ML IVPB SCH (17:30)
[2017-07-26] MEDS ORDERED: DIPHENHYDRAMINE 50 MG INJ IV PRN (17:30)
[2017-07-26] MEDS ORDERED: metroNIDAZOLE 500 MG/NS (PMX) 100 ML IVPB SCH (17:30)
[2017-07-26] MEDS ORDERED: METOCLOPRAMIDE 10 MG INJ IV PRN (17:30)
[2017-07-26] MEDS ORDERED: MEPERIDINE 25 MG INJ IV PRN (17:30)
[2017-07-26] MEDS ORDERED: HYDROmorphONE (0.2 MG/ML) 10ML SYG IV PRN ×3 (17:30)
[2017-07-26] MEDS ORDERED: MIDAZOLAM 1 MG/ML 2 ML INJ IV PRN (17:30)
[2017-07-26] MEDS ORDERED: LABETALOL HCL 20MG INJ IV PRN (17:30)
--- NOTE | 2017-07-26 17:34 | OPR ---
Date/Time of Note Date/Time of Note DATE: 07/26/17 TIME: 17:15 Operative Report Procedure Date: Jul 26, 2017 Preoperative Diagnosis bleeding left colon cancer symptomatic anemia Postoperative Diagnosis same Operation/Procedure Performed 1. laparoscopic converted to open extended left hemicolectomy 2. mobilization of splenic flexure 3. laparoscopic lysis of adhesions 2 hours 4. therapeutic injection of subcutaneous local anesthesia Surgeon see signature line Glass Pulverizer Equipment Operator none Anesthesia Type: general Estimated Blood Loss: 100 - 150 ml's Transfusion none Specimen left colon stitch guevara distal Grafts/Implants none Complications none Pt Condition Post Procedure: stable Indications This is a 51-year-old female with multiple medical problems who came to the ER for bleeding colon cancer with symptomatic anemia. She was originally scheduled for surgery however she could not wait due to her symptomatic anemia. She is taken to the OR for a semi-urgency: Resection of her colon cancer that is currently bleeding. Risks alternatives benefits and percent were discussed the patient. Patient expressed understanding consents to the operation. Procedure Description Patient is taken to the OR and prepped and draped in usual sterile fashion. Surgical timeout was performed. IV antibiotics given. Supraumbilical midline incision is made with a 15 blade. Blueness on trocar is introduced pneumoperitoneum is established. Pfannenstiel incision was made and a well port was introduced. Right flank 5 and 5 mm optical trochars were placed under direct visualization. Upon initial inspection there is no identification of the tattooing. It appeared that the tattooing from the colonoscopy had been washed out. Left colic artery was identified and divided using a 45 echelon vascular stapler. Transverse colon and the splenic flexure was mobilized by first dividing the omentum from the transverse mesocolon with laps, harmonic alejandra. There was a significant amount of adhesions and tissue that was adhesed to the anterior abdominal wall and in the left upper quadrant along the splenic flexure. This was of concern. Lateral dissection was performed. The white line of Toldt was divided and marched up to the proximal left colon. The dissection was quite difficult in the left upper quadrant. Lysis of adhesions was performed laparoscopically for approximately an hour and a half due to the omental adhesions. The this point it appeared that the structure could not be mobilized laparoscopically. The operation was converted to open. The splenic flexure was further mobilized this showed that there is multiple adhesions and inflammatory reaction as a result of prior infection. The distal left colon was divided distal to the left colic artery with a 75 blue load VENKAT stapler. The transverse colon was divided just distal to the middle colic artery. The mesocolon was divided using hand-held impact LigaSure. The distal margin was marked with a stitch and sent for intraoperative consultation to pathology. It appeared that there was at least 5 cm of distal margin and more than 5 cm in proximal margin. Tumor was circumferential and hardened. Due to some mismatch issues of the caliber of the colon to layered handsewn anastomosis was performed. A posterior layer of interrupted 3-0 silk was performed. The mucosal layer was then closed with a running 3-0 PDS. Another anterior layer of running 3-0 PDS was performed. The anterior second layer with interrupted 3- 0 silk was used for closure. The anastomosis was patent. An omental patch was used to wrap around the anastomosis for protection with interrupted 3-0 Vicryl. The surgical site was irrigated. The midline incision was then closed with a running loop 1 PDS from superior to inferior and inferior to superior. The wound was irrigated with irrigation. The incisions and port sites were closed with skin pierre. Therapeutic subcutaneous local anesthesia was injected throughout the incision sites. Hilario BOTELLO Jul 26, 2017 17:26
[2017-07-26] MEDS ORDERED: NALOXONE (0.4 MG/ML) INJ IV PRN ×2 (18:00)
[2017-07-26] MEDS: ACETAMINOPHEN 1000MG/100ML IV 100 ML IVPB SCH (18:00)
[2017-07-26] MEDS ORDERED: morphine 1 MG/ML 30 ML (PCA) IV SCH (18:00)
[2017-07-26 18:37] LABS: BASOPHILS % 0.3 % (0.0-2.0); EOSINOPHILS # 0.1 10^3/ul (0.0-0.5); EOSINOPHILS % 0.4 % (0.0-7.0); HEMATOCRIT 42.4 % (37.0-47.0); HEMOGLOBIN 13.6 g/dl (12.0-16.0); LYMPHOCYTES # 1.3 10^3/ul (0.8-2.9); LYMPHOCYTES % 10.4 % (15.0-51.0); MEAN CORPUSCULAR HEMOGLOBIN 25.3 pg (29.0-33.0); MEAN CORPUSCULAR HGB CONC 32.1 g/dl (32.0-37.0); MEAN PLATELET VOLUME 10.1 fl (7.4-10.4); MONOCYTE # 0.5 10^3/ul (0.3-0.9); MONOCYTES % 4.3 % (0.0-11.0); NEUTROPHIL # 10.7 10^3/ul (1.6-7.5); NEUTROPHILS % 84.2 % (39.0-77.0); PLATELET COUNT 307 10^3/UL (140-415); RED BLOOD COUNT 5.37 10^6/ul (4.20-5.40); RED CELL DISTRIBUTION WIDTH 16.9 % (11.5-14.5); WHITE BLOOD COUNT 12.7 10^3/ul (4.8-10.8)
[2017-07-26 18:56] LABS: ALBUMIN/GLOBULIN RATIO 1.66; BILIRUBIN,INDIRECT 3.9 mg/dl (0-1.1); BILIRUBIN,TOTAL 3.9 mg/dl (0.2-1.3); CALCIUM 8.5 mg/dl (8.4-10.2); CREATININE 1.07 mg/dl (0.44-1.00); POTASSIUM 3.8 mmol/L (3.5-5.1); TOTAL PROTEIN 6.4 g/dl (6.1-8.1)
[2017-07-26] MEDS: metroNIDAZOLE 500 MG/NS (PMX) 100 ML IVPB SCH (21:14)
[2017-07-27] VITALS (12 sets, daily range): BP systolic 118–150; BP diastolic 71–88; PULSE 78–85; RESP 16–20
[2017-07-27] MEDS: ONDANSETRON 4 MG INJ IV PRN ×4 (00:56→12:44)
[2017-07-27] MEDS: CIPROFLOXACIN 400MG/D5W 200 ML IVPB SCH ×2 (01:00→12:43)
[2017-07-27] MEDS: SOD CHLORIDE 0.9% 1,000 ML IV SCH ×3 (03:01→23:08)
[2017-07-27] MEDS: metroNIDAZOLE 500 MG/NS (PMX) 100 ML IVPB SCH ×2 (04:49→16:00)
[2017-07-27] MEDS: ACETAMINOPHEN 1000MG/100ML IV 100 ML IVPB SCH ×5 (06:00→23:09)
[2017-07-27 06:15] LABS: ABNORMAL IP MESSAGE 1; HEMATOCRIT 43.2 % (37.0-47.0); HEMOGLOBIN 13.5 g/dl (12.0-16.0); MEAN CORPUSCULAR HEMOGLOBIN 24.5 pg (29.0-33.0); MEAN CORPUSCULAR HGB CONC 31.3 g/dl (32.0-37.0); MEAN CORPUSCULAR VOLUME 78.4 fl (82.0-101.0); MEAN PLATELET VOLUME 10.3 fl (7.4-10.4); PLATELET COUNT 290 10^3/UL (140-415); RED BLOOD COUNT 5.51 10^6/ul (4.20-5.40); RED CELL DISTRIBUTION WIDTH 18.1 % (11.5-14.5); WHITE BLOOD COUNT 11.4 10^3/ul (4.8-10.8)
[2017-07-27 06:32] LABS: POSITIVE DIFF @See below
[2017-07-27 06:37] LABS: ALBUMIN 3.7 g/dl (3.3-4.9); ALBUMIN/GLOBULIN RATIO 1.54; BILIRUBIN,INDIRECT 3.7 mg/dl (0-1.1); BILIRUBIN,TOTAL 3.7 mg/dl (0.2-1.3); CALCIUM 8.2 mg/dl (8.4-10.2); CREATININE 0.84 mg/dl (0.44-1.00); POTASSIUM 3.8 mmol/L (3.5-5.1); TOTAL PROTEIN 6.1 g/dl (6.1-8.1)
[2017-07-27 06:54] LABS: MAGNESIUM 1.4 mg/dl (1.7-2.5); PHOSPHORUS 4.8 mg/dl (2.5-4.9)
[2017-07-27 08:46] LABS: ANISOCYTOSIS 2+ (0-0); MICROCYTOSIS 2+ (0-0); MONOCYTES % (M) 3 % (0-11); PLATELET ESTIMATE NORMAL; POIKILOCYTOSIS 2+ (0-0); POLYCHROMASIA 3+ (0-0)
[2017-07-27] MEDS: FAMOTIDINE 20 MG INJ IV SCH ×2 (09:33→20:39)
[2017-07-27] MEDS: LORATADINE 10 MG TAB PO SCH (09:34)
[2017-07-27] MEDS: LISINOPRIL 20 MG TAB PO SCH (09:34)
[2017-07-27] MEDS: SPIRONOLACTONE 25 MG TAB PO SCH (09:34)
[2017-07-27] MEDS ORDERED: VITAMIN A & D 5 GM OINT PACKET TOP ONE (09:38)
--- NOTE | 2017-07-27 10:02 | PN ---
Date/Time of Note Date/Time of Note DATE: 07/27/17 TIME: 09:58 Assessment/Plan VTE Prophylaxis VTE Prophylaxis Intervention: LMWH Lines/Catheters IV Catheter Type (from Nrsg): Peripheral IV Urinary Cath still in place: Yes Reason Cath still needed: urinary retention Assessment/Plan Assessment/Plan 1. 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 consider ngt drainage if persistent 2. anemia, resolved after rtransfusion 3. proph: lovenox Subjective 24 Hr Interval Summary Free Text/Dictation complaint os poorly controlled pain some nausea one episode of vomiting Exam/Review of Systems Vital Signs Vitals Vital Signs Date Time Temp Pulse Resp B/P Pulse Ox O2 Delivery O2 Flow Rate FiO2 07/27/17 08:05 85 07/27/17 07:43 99.2 20 135/71 95 07/26/17 19:00 Nasal Cannula 07/26/17 18:41 2.0 Intake and Output 07/26/17 07/26/17 07/27/17 15:00 23:00 07:00 Intake Total 2600 ml 600 ml Output Total 200 ml 700 ml Balance 2400 ml -100 ml Exam Constitutional: alert Respiratory: clear to auscultation Cardiovascular: regular rate and rhythm Results Result Diagram: 07/27/17 0535 07/27/17 0535 Results 24 hrs Laboratory Tests Test 07/26/17 18:20 07/27/17 05:35 07/27/17 05:42 White Blood Count 12.7 #H 11.4 H Red Blood Count 5.37 # 5.51 H Hemoglobin 13.6 # 13.5 Hematocrit 42.4 # 43.2 Mean Corpuscular Volume 79.0 L 78.4 L Mean Corpuscular Hemoglobin 25.3 L 24.5 L Mean Corpuscular Hemoglobin Concent 32.1 31.3 L Red Cell Distribution Width 16.9 H 18.1 H Platelet Count 307 290 Mean Platelet Volume 10.1 10.3 Neutrophils % 84.2 H Lymphocytes % 10.4 L Monocytes % 4.3 Eosinophils % 0.4 Basophils % 0.3 Nucleated Red Blood Cells % 0.0 0.0 Neutrophils # 10.7 H Lymphocytes # 1.3 Monocytes # 0.5 Eosinophils # 0.1 Basophils # 0.0 Nucleated Red Blood Cells # 0.0 Sodium Level 140 139 Potassium Level 3.8 3.8 Chloride Level 104 104 Carbon Dioxide Level 23 24 Anion Gap 17 #H 15 Blood Urea Nitrogen 16 12 Creatinine 1.07 H 0.84 Glucose Level 156 148 Calcium Level 8.5 8.2 L Total Bilirubin 3.9 H 3.7 H Direct Bilirubin 0.00 0.00 Indirect Bilirubin 3.9 H 3.7 H Aspartate Amino Transf (AST/SGOT) 23 22 Alanine Aminotransferase (ALT/SGPT) 31 33 Alkaline Phosphatase 65 51 Total Protein 6.4 6.1 Albumin 4.0 3.7 Globulin 2.40 2.40 Albumin/Globulin Ratio 1.66 1.54 Segmented Neutrophils % (Manual) 46 Band Neutrophils % (Manual) 48 H Lymphocytes % (Manual) 3 L Monocytes % (Manual) 3 Neutrophils # (Manual) 5.9 Band Neutrophils # 5.4 H Absolute Lymphocytes (Manual) 0.3 L Absolute Monocytes (Manual) 0.3 Platelet Estimate NORMAL Polychromasia 3+ Poikilocytosis 2+ Anisocytosis 2+ Microcytosis 2+ Phosphorus Level 4.8 Magnesium Level 1.4 L Lab Scanned Report BLOOD TRANSFUSION Medications Medications Current Medications Digoxin (Digoxin) 0.125 mg DAILY@13 PO Last administered on 07/25/17 12:03; Admin Dose 0.125 MG; Start 07/24/17 at 13:00 Lisinopril (Zestril) 20 mg DAILY PO Last administered on 07/27/17 09:34; Admin Dose 20 MG; Start 07/24/17 at 09:00 Loratadine (Claritin) 10 mg DAILY PO Last administered on 07/27/17 09:34; Admin Dose 10 MG; Start 07/24/17 at 09:00 Spironolactone (Aldactone) 25 mg DAILY PO Last administered on 07/27/17 09:34 ; Admin Dose 25 MG; Start 07/24/17 at 09:00 Acetaminophen (Tylenol Tab) 650 mg Q4H PRN PO pain/fever; Start 07/24/17 at 07 :00; Status Future Hold Ondansetron HCl (Zofran Inj) 4 mg Q4H PRN IV nausea Last administered on 09:33; Admin Dose 4 MG; Start 07/24/17 at 07:00 Diphenhydramine HCl (Benadryl) 25 mg Q6H PRN PO itch; Start 07/24/17 at 07:00 Morphine Sulfate (morphine) 2 mg Q4H PRN IV PAIN LEVEL 1-5 Last administered on 07/26/17 11:18; Admin Dose 2 MG; Start 07/24/17 at 12:27 Morphine Sulfate (morphine) 4 mg Q4H PRN IV PAIN LEVEL 6-10; Start 07/24/17 at 12:27 Famotidine 20 mg 20 mg BID IV Last administered on 07/27/17 09:33; Admin Dose 20 MG; Start 07/24/17 at 21:00 Sodium Chloride (NS) 1,000 ml @ 100 mls/hr Q10H IV Last administered on 03:01; Admin Dose 100 MLS/HR; Start 07/26/17 at 17:10 Naloxone HCl 0.2 mg 0.2 mg Q2M PRN IV RR 8 BREATHS/MIN OR LESS; Start at 18:00 Acetaminophen (Ofirmev 1000mg/ 100ml Iv) 100 ml @ 400 mls/hr Q6H IVPB ; Start 07/26/17 at 18:00 Naloxone HCl (Narcan) 0.2 mg PRN PRN IV DECREASED REPIRATORY RATE; Start 07/26 at 18:00 Morphine Sulfate Q4PCA IV Last administered on 07/26/17 18:02; Admin Dose 30 MG; Start 07/26/17 at 18:00 Ciprofloxacin/ Dextrose 200 ml @ 200 mls/hr Q12H IVPB Last administered on 01:00; Admin Dose 200 MLS/HR; Start 07/27/17 at 01:00; Stop 07/27/17 at 13:59 Metronidazole (Flagyl 500 Mg (Pmx)) 100 ml @ 100 mls/hr Q8H IVPB Last administered on 07/27/17 04:49; Admin Dose 100 MLS/HR; Start 07/26/17 at 21: 00; Stop 07/27/17 at 20:59 SHANDA PILLAI MD Jul 27, 2017 10:02
[2017-07-27] MEDS: DIGOXIN 0.125 MG TAB PO SCH (12:43)
[2017-07-27] MEDS ORDERED: MAGNESIUM SULFATE 4 GM/100 ML 100 ML IVPB ONE (14:00)
[2017-07-27] MEDS: ONDANSETRON INJ 8 MG in SOD CHLORIDE 0.9% 50 ML IV PRN ×2 (14:46→21:03)
[2017-07-28] VITALS (13 sets, daily range): BP systolic 110–140; BP diastolic 66–79; PULSE 88–101; RESP 16–18
[2017-07-28] MEDS: ACETAMINOPHEN 1000MG/100ML IV 100 ML IVPB SCH ×4 (05:00→23:39)
[2017-07-28] MEDS: ONDANSETRON INJ 8 MG in SOD CHLORIDE 0.9% 50 ML IV PRN ×3 (05:36→20:34)
[2017-07-28] MEDS: SOD CHLORIDE 0.9% 1,000 ML IV SCH ×3 (05:51→20:35)
[2017-07-28 06:25] LABS: ABNORMAL IP MESSAGE 1; HEMATOCRIT 39.5 % (37.0-47.0); HEMOGLOBIN 12.4 g/dl (12.0-16.0); MEAN CORPUSCULAR HEMOGLOBIN 25.3 pg (29.0-33.0); MEAN CORPUSCULAR HGB CONC 31.4 g/dl (32.0-37.0); MEAN CORPUSCULAR VOLUME 80.6 fl (82.0-101.0); MEAN PLATELET VOLUME 10.9 fl (7.4-10.4); PLATELET COUNT 243 10^3/UL (140-415); WHITE BLOOD COUNT 15.3 10^3/ul (4.8-10.8)
[2017-07-28 06:31] LABS: POSITIVE DIFF @See below
[2017-07-28 07:13] LABS: CALCIUM 8.5 mg/dl (8.4-10.2); CREATININE 0.86 mg/dl (0.44-1.00); POTASSIUM 3.9 mmol/L (3.5-5.1)
[2017-07-28 08:02] LABS: ANISOCYTOSIS 1+ (0-0); BASOPHILS % (M) 1 % (0-2); MICROCYTOSIS 1+ (0-0); MONOCYTES % (M) 5 % (0-11); MYELOCYTES % (M) 1 % (0-0); PLATELET ESTIMATE NORMAL; POLYCHROMASIA 3+ (0-0); REACTIVE LYMPHOCYTES% (M) 2 % (0-0)
[2017-07-28] MEDS: LORATADINE 10 MG TAB PO SCH (09:44)
[2017-07-28] MEDS: SPIRONOLACTONE 25 MG TAB PO SCH (09:44)
[2017-07-28] MEDS: LISINOPRIL 20 MG TAB PO SCH (09:44)
[2017-07-28] MEDS: FAMOTIDINE 20 MG INJ IV SCH ×2 (09:44→20:56)
--- NOTE | 2017-07-28 10:05 | PN ---
Date/Time of Note Date/Time of Note DATE: 07/28/17 TIME: 10:01 Assessment/Plan VTE Prophylaxis VTE Prophylaxis Intervention: LMWH, SCD's Lines/Catheters IV Catheter Type (from Nrsg): Peripheral IV Urinary Cath still in place: Yes Reason Cath still needed: terminal illness/intractable pain Assessment/Plan Assessment/Plan 1. gi: s/p L hemicolectomy (b) post-op ileus with persistent nausea, attempt NGT decompression (c) poor posst-op pain control secondary to nausea 2. increase activity when pain control improved Subjective 24 Hr Interval Summary Free Text/Dictation c/o nausea nausea is causing her to be reluctant to take pain med Exam/Review of Systems Vital Signs Vitals Vital Signs Date Time Temp Pulse Resp B/P Pulse Ox O2 Delivery O2 Flow Rate FiO2 07/28/17 08:09 88 07/28/17 08:00 98.0 18 124/67 95 07/26/17 19:00 Nasal Cannula 07/26/17 18:41 2.0 Intake and Output 07/27/17 07/27/17 07/28/17 15:00 23:00 07:00 Intake Total 254 ml 1004 ml Output Total 400 ml 550 ml Balance -146 ml 454 ml Exam Constitutional: alert Respiratory: clear to auscultation Cardiovascular: regular rate and rhythm Gastrointestinal: soft Results Result Diagram: 07/28/17 0524 07/28/17 0524 Results 24 hrs Laboratory Tests Test 07/28/17 05:24 07/28/17 05:29 White Blood Count 15.3 #H Red Blood Count 4.90 Hemoglobin 12.4 Hematocrit 39.5 Mean Corpuscular Volume 80.6 L Mean Corpuscular Hemoglobin 25.3 L Mean Corpuscular Hemoglobin Concent 31.4 L Red Cell Distribution Width 19.0 H Platelet Count 243 Mean Platelet Volume 10.9 H Neutrophils % Segmented Neutrophils % (Manual) 55 Band Neutrophils % (Manual) 32 H Lymphocytes % Lymphocytes % (Manual) 4 L Reactive Lymphocytes % (Manual) 2 H Monocytes % Monocytes % (Manual) 5 Eosinophils % Basophils % Basophils % (Manual) 1 Myelocytes % (Manual) 1 H Nucleated Red Blood Cells % 0.0 Neutrophils # Neutrophils # (Manual) 9.1 H Band Neutrophils # 4.8 H Absolute Lymphocytes (Manual) 0.6 L Lymphocytes # Reactive Lymphocytes # 0.3 H Monocytes # Absolute Monocytes (Manual) 0.7 Eosinophils # Basophils # Basophils # (Manual) 0.1 H Myelocytes # 0.1 H Nucleated Red Blood Cells # Platelet Estimate NORMAL Polychromasia 3+ Anisocytosis 1+ Microcytosis 1+ Sodium Level 139 Potassium Level 3.9 Chloride Level 104 Carbon Dioxide Level 29 Anion Gap 10 # Blood Urea Nitrogen 13 Creatinine 0.86 Glucose Level 115 Calcium Level 8.5 Magnesium Level 2.2 Medications Medications Current Medications Digoxin (Digoxin) 0.125 mg DAILY@13 PO Last administered on 07/27/17 12:43; Admin Dose 0.125 MG; Start 07/24/17 at 13:00 Lisinopril (Zestril) 20 mg DAILY PO Last administered on 07/28/17 09:44; Admin Dose 20 MG; Start 07/24/17 at 09:00 Loratadine (Claritin) 10 mg DAILY PO Last administered on 07/28/17 09:44; Admin Dose 10 MG; Start 07/24/17 at 09:00 Spironolactone (Aldactone) 25 mg DAILY PO Last administered on 07/28/17 09:44 ; Admin Dose 25 MG; Start 07/24/17 at 09:00 Acetaminophen (Tylenol Tab) 650 mg Q4H PRN PO pain/fever; Start 07/24/17 at 07 :00; Status Future Hold Diphenhydramine HCl (Benadryl) 25 mg Q6H PRN PO itch; Start 07/24/17 at 07:00 Morphine Sulfate (morphine) 2 mg Q4H PRN IV PAIN LEVEL 1-5 Last administered on 07/26/17 11:18; Admin Dose 2 MG; Start 07/24/17 at 12:27 Morphine Sulfate (morphine) 4 mg Q4H PRN IV PAIN LEVEL 6-10; Start 07/24/17 at 12:27 Famotidine 20 mg 20 mg BID IV Last administered on 07/28/17 09:44; Admin Dose 20 MG; Start 07/24/17 at 21:00 Sodium Chloride (NS) 1,000 ml @ 100 mls/hr Q10H IV Last administered on 05:51; Admin Dose 100 MLS/HR; Start 07/26/17 at 17:10 Naloxone HCl 0.2 mg 0.2 mg Q2M PRN IV RR 8 BREATHS/MIN OR LESS; Start at 18:00 Acetaminophen (Ofirmev 1000mg/ 100ml Iv) 100 ml @ 400 mls/hr Q6H IVPB Last administered on 07/28/17 05:00; Admin Dose 400 MLS/HR; Start 07/26/17 at 18: 00 Naloxone HCl (Narcan) 0.2 mg PRN PRN IV DECREASED REPIRATORY RATE; Start 07/26 at 18:00 Morphine Sulfate Q4PCA IV Last administered on 07/26/17 18:02; Admin Dose 30 MG; Start 07/26/17 at 18:00 Ondansetron HCl/ Sodium Chloride (Zofran Inj/NS) 54 ml @ 216 mls/hr Q6H PRN IV NAUSEA AND/OR VOMITING Last administered on 07/28/17 05:36; Admin Dose 216 MLS/HR; Start 07/27/17 at 13:00 SHANDA PILLAI MD Jul 28, 2017 10:05
[2017-07-28] MEDS: DIGOXIN 0.125 MG TAB PO SCH (12:50)
--- NOTE | 2017-07-28 13:22 | RADRPT ---
PROCEDURE: XR Chest. CLINICAL INDICATION: Assess NG tube placement. TECHNIQUE: Single frontal view of the chest was obtained. COMPARISON: Chest x-ray 07/28/2017 10:43 a.m. FINDINGS: Monitoring electrodes project across the chest. An NG tube is identified in place. Its tip arrest in the cardia of the stomach. There are osteophytes in the mid and lower thoracic spine. The heart, cardiomediastinal silhouette and hilar structures are normal. The pulmonary vasculature is normal. There is a left-sided aorta. There is a plate-like density near the left heart border. The remaining lung trejo are clear. The costophrenic angles are normal. IMPRESSION: 1. Satisfactory positioning of an NG tube distal to the GE junction. 2. Plate-like density consistent with parenchymal scarring versus atelectasis in the lingula. 3. Spondylosis of the thoracic spine. RPTAT:AAJJ Physician Jason Date Time Electronically viewed and signed by Physician Jason on 07/28/2017 13:22 JAKE/
--- NOTE | 2017-07-28 13:24 | RADRPT ---
PROCEDURE: XR Chest. CLINICAL INDICATION: Leukocytosis. TECHNIQUE: Single frontal view of the chest was obtained. COMPARISON: Chest x-ray 07/24/2000 17:11 of 02/1980. FINDINGS: Monitoring electrodes project across the chest. There are degenerative osteophytes in the lower tho racic and upper lumbar spine. The heart, cardiomediastinal silhouette and hilar structures are norm al. The pulmonary vasculature is normal. There is a left-sided aorta. There is a plate-like density on the lower left heart border not identified on 07/24/2017. The costophrenic angles are normal. IMPRESSION: 1. Plate-like atelectasis in the lingula. 2. Currently, no evidence of active cardiopulmonary disease. RPTAT:AAJJ Physician Jason Date Time Electronically viewed and signed by Kev Ricks Physician on 07/28/2017 13:23 JAKE/
[2017-07-28 14:43] LABS: ADD UMIC YES; UR ASCORBIC ACID NEGATIVE (NEGATIVE); UR BILIRUBIN (Dip) NEGATIVE (NEGATIVE); UR BLOOD (Dip) NEGATIVE (NEGATIVE); UR CLARITY CLEAR (CLEAR); UR COLOR AMBER (YELLOW); UR GLUCOSE (Dip) NEGATIVE (NEGATIVE); UR KETONES (Dip) 2+ mg/dL (NEGATIVE); UR LEUKOCYTE ESTERASE (Dip) NEGATIVE Leu/ul (NEGATIVE); UR MUCUS FEW /HPF (NONE SEEN); UR NITRITE (Dip) NEGATIVE (NEGATIVE); UR RBC 2 /HPF (0-5); UR SPECIFIC GRAVITY (Dip) 1.036 (1.003-1.030); UR TOTAL PROTEIN (Dip) 1+ mg/dl (NEGATIVE); UR UROBILINOGEN (Dip) 1+ mg/dL (NEGATIVE)
[2017-07-28] MEDS: CIPROFLOXACIN 400MG/D5W 200 ML IVPB SCH (20:57)
[2017-07-28] MEDS: metroNIDAZOLE 500 MG/NS (PMX) 100 ML IVPB SCH (22:02)
[2017-07-29] VITALS (57 sets, daily range): BP systolic 91–155; BP diastolic 64–117; PULSE 74–190; RESP 18–37
[2017-07-29] MEDS: ONDANSETRON INJ 8 MG in SOD CHLORIDE 0.9% 50 ML IV PRN ×3 (02:49→18:03)
[2017-07-29] MEDS: SOD CHLORIDE 0.9% 1,000 ML IV SCH ×3 (05:10→15:13)
[2017-07-29] MEDS: ACETAMINOPHEN 1000MG/100ML IV 100 ML IVPB SCH ×3 (05:14→18:32)
[2017-07-29] MEDS: metroNIDAZOLE 500 MG/NS (PMX) 100 ML IVPB SCH ×2 (05:46→15:13)
--- NOTE | 2017-07-29 07:17 | PN ---
DATE: 07/28/2017 Postop day #2 operation left hemicolectomy for bleeding cancer of the left colon. PROCEDURE: Attempted laparoscopic, conversion to open. SUBJECTIVE: Has some nausea, some vomiting today morning, so eventually they had to put NG tube in the afternoon. Since then, she feels some relief. Leal catheter was removed today morning, but she was not able to urinate so a second catheterization was performed. OBJECTIVE: GENERAL: Awake, alert and oriented x3. VITAL SIGNS: Temperature 98.7, heart rate 90, respirations 18, blood pressure 140/79, saturation 96% on room air. LABORATORY DATA: Today, WBC is 15,300 with 55% neutrophils and 32% bands; hemoglobin is 12.4; hematocrit 39.5. Chemistry: Sodium , potassium . BUN and creatinine normal. Total bilirubin has increased to 3.7, direct 0, indirect 3.7. Chest x-ray today showed some atelectasis. PHYSICAL EXAMINATION: GENERAL: Awake, alert, complaining of inability to urinate. We are going to scan the bladder now. HEART: Regular. LUNGS: Decreased breathing sound at bases. ABDOMEN: Slightly distended. Dressing is intact. Bowel sounds hypoactive. LEGS: SCDs in place. ASSESSMENT AND PLAN: 1. A 51-year-old female who presented to emergency room because of rectal bleeding and evaluation revealed presence of cancer of the left colon and 2 days ago underwent hemicolectomy, attempted laparoscopic, conversion to open. The patient today, which is postop day #2, has been complaining of nausea, vomiting. Leal was removed, inability to urinate. Physical exam: Decreased breathing sound at bases. NG tube is in place. The patient feels better after getting NG tube, but unfortunately the N.G. T.is very small., # 14. WBC increased to 15,000 with 32% bands. The patient received antibiotic yesterday but has not received since then. I am going to start antibiotics, Cipro plus Flagyl. 2. To scan the bladder and if the scan is more than 200 mL, we can catheterize the patient every 4 hours. Incentive spirometry to be used. Continue SCDs. Continue IV. observe closely. Dictated By: ILSA KING/VINNY Conf#: [id number] [facility]#: [id number] MTDD
[2017-07-29] MEDS ORDERED: AMIODARONE 900 MG in DEXTROSE 5% 482 ML IV SCH (07:30)
[2017-07-29] MEDS ORDERED: SOD CHLORIDE 0.9% 500 ML IV ONE (07:30)
[2017-07-29] MEDS ORDERED: AMIODARONE 150MG/D5W BOLUS 100 ML IV ONE (07:30)
--- NOTE | 2017-07-29 07:48 | PN ---
Date/Time of Note Date/Time of Note DATE: 07/29/17 TIME: 07:43 Assessment/Plan VTE Prophylaxis VTE Prophylaxis Intervention: SCD's Lines/Catheters IV [facility] Type (from [facility]): Peripheral IV Urinary Cath still in place: No Assessment/Plan Chief Complaint/Hosp Course s/p lap converted to open extended left hemicolectomy for actively bleeding colon cancer with symptomatic anemia admitted through the ER emergently Problems: Assessment/Plan patient had increase heart rate as a result of her afib with rvr most likely poor absorption of her oral digoxin due to her ileus nursing requesting transfer to a higher level of care ok to transfer from surgical perspective paralytic ileus -continue NGT and fluid resuscitations -replace valladares afib will need to be rate controlled per medical team will continue to follow Subjective 24 Hr Interval Summary Free Text/Dictation NGT in place with bilious output, dressings intact, patient was with nursing during a increased heart rate from her afib with rvr nursing requested transfer to a higher level of care Exam/Review of Systems Vital Signs Vitals Vital Signs Date Time Temp Pulse Resp B/P Pulse Ox O2 Delivery O2 Flow Rate FiO2 07/29/17 07:36 190 07/29/17 05:00 20 07/29/17 04:36 97.8 140/65 97 07/26/17 19:00 Nasal Cannula 07/26/17 18:41 2.0 Intake and Output 07/28/17 07/28/17 07/29/17 15:00 23:00 07:00 Intake Total 254 ml 1454 ml Output Total 1175 ml Balance 254 ml 279 ml Exam NGT in place with bilious output dressings intact Results Result Diagram: 07/28/1752307/28/17 0524 Results 24 hrs Laboratory Tests Test 07/28/17 13:20 Urine Color JEANNA Urine Clarity CLEAR Urine pH 5.0 Urine Specific [place] 1.036 H Urine Ketones 2+ H Urine Nitrite NEGATIVE Urine Bilirubin NEGATIVE Urine Urobilinogen 1+ H Urine Leukocyte Esterase NEGATIVE Urine Microscopic RBC 2 Urine Microscopic WBC 3 Urine Mucus FEW A Urine Hemoglobin NEGATIVE Urine Glucose NEGATIVE Urine Total Protein 1+ H Medications Medications Current Medications Digoxin (Digoxin) 0.125 mg DAILY@13 PO Last administered on 07/28/17t 12:50; Admin Dose 0.125 MG; Start 07/24/17 at 13:00 Lisinopril (Zestril) 20 mg DAILY PO Last administered on 07/28/17 09:44; Admin Dose 20 MG; Start 07/24/17 at 09:00 Loratadine (Claritin) 10 mg DAILY PO Last administered on 07/28/17 09:44; Admin Dose 10 MG; Start 07/24/17 at 09:00 Spironolactone (Aldactone) 25 mg DAILY PO Last administered on 07/28/17 09:44 ; Admin Dose 25 MG; Start 07/24/17 at 09:00 Acetaminophen (Tylenol Tab) 650 mg Q4H PRN PO pain/fever; Start 07/24/17 at 07 :00; Status Future Hold Diphenhydramine HCl (Benadryl) 25 mg Q6H PRN PO itch; Start 07/24/17 at 07:00 Morphine Sulfate (morphine) 2 mg Q4H PRN IV PAIN LEVEL 1-5 Last administered on 07/26/17 11:18; Admin Dose 2 MG; Start 07/24/17 at 12:27 Morphine Sulfate (morphine) 4 mg Q4H PRN IV PAIN LEVEL 6-10; Start 07/24/17 at 12:27 Famotidine 20 mg 20 mg BID IV Last administered on 07/28/17 20:56; Admin Dose 20 MG; Start 07/24/17 at 21:00 Sodium Chloride (NS) 1,000 ml @ 100 mls/hr Q10H IV Last administered on 06:05; Admin Dose 100 MLS/HR; Start 07/26/17 at 17:10 Naloxone HCl 0.2 mg 0.2 mg Q2M PRN IV RR 8 BREATHS/MIN OR LESS; Start at 18:00 Acetaminophen (Ofirmev 1000mg/ 100ml Iv) 100 ml @ 400 mls/hr Q6H IVPB Last administered on 07/29/17 05:14; Admin Dose 400 MLS/HR; Start 07/26/17 at 18: 00 Naloxone HCl (Narcan) 0.2 mg PRN PRN IV DECREASED REPIRATORY RATE; Start 07/26 at 18:00 Morphine Sulfate Q4PCA IV Last administered on 07/26/17 18:02; Admin Dose 30 MG; Start 07/26/17 at 18:00 Ondansetron HCl 8 mg/Sodium Chloride 54 ml @ 216 mls/hr Q6H PRN IV NAUSEA AND/ OR VOMITING Last administered on 07/29/17 02:49; Admin Dose 216 MLS/HR; Start 07/27/17 at 13:00 Metronidazole 100 ml @ 100 mls/hr Q8 IVPB Last administered on 07/29/17 05: 46; Admin Dose 100 MLS/HR; Start 07/28/17 at 22:00 Ciprofloxacin/ Dextrose 200 ml @ 200 mls/hr Q12 IVPB Last administered on 20:57; Admin Dose 200 MLS/HR; Start 07/28/17 at 21:00 Sodium Chloride 500 ml @ 500 mls/hr Q1H ONCE IV ; Start 07/29/17 at 07:30; Stop 07/29/17 at 08:29 Amiodarone HCl/ Dextrose (Cordarone Iv/ D5W) 500 ml @ 0 mls/hr Q0M IV ; Start 07/29/17 at 07:30; Stop 07/30/17 at 07:29 Hilario BOTELLO Jul 29, 2017 07:48
[2017-07-29 07:59] LABS: ABNORMAL IP MESSAGE 1; HEMATOCRIT 37.5 % (37.0-47.0); HEMOGLOBIN 11.6 g/dl (12.0-16.0); MEAN CORPUSCULAR HEMOGLOBIN 25.3 pg (29.0-33.0); MEAN CORPUSCULAR HGB CONC 30.9 g/dl (32.0-37.0); MEAN CORPUSCULAR VOLUME 81.9 fl (82.0-101.0); MEAN PLATELET VOLUME 10.8 fl (7.4-10.4); PLATELET COUNT 212 10^3/UL (140-415); RED BLOOD COUNT 4.58 10^6/ul (4.20-5.40); RED CELL DISTRIBUTION WIDTH 19.4 % (11.5-14.5); WHITE BLOOD COUNT 10.7 10^3/ul (4.8-10.8)
[2017-07-29 08:09] LABS: POSITIVE DIFF @See below
[2017-07-29 08:26] LABS: CALCIUM 8.7 mg/dl (8.4-10.2); CREATININE 0.88 mg/dl (0.44-1.00); POTASSIUM 3.5 mmol/L (3.5-5.1)
[2017-07-29] MEDS: LISINOPRIL 20 MG TAB PO SCH (09:00)
[2017-07-29] MEDS: LORATADINE 10 MG TAB PO SCH (09:00)
[2017-07-29] MEDS: SPIRONOLACTONE 25 MG TAB PO SCH (09:00)
[2017-07-29] MEDS: CIPROFLOXACIN 400MG/D5W 200 ML IVPB SCH ×2 (11:23→20:29)
[2017-07-29] MEDS: FAMOTIDINE 20 MG INJ IV SCH ×2 (11:25→20:29)
[2017-07-29] MEDS ORDERED: POTASSIUM CHLORIDE 250 ML IVPB ONE (11:30)
--- NOTE | 2017-07-29 11:57 | PN ---
Date/Time of Note Date/Time of Note DATE: 07/29/17 TIME: 11:23 Assessment/Plan VTE Prophylaxis VTE Prophylaxis Intervention: SCD's Lines/Catheters [facility] (from [facility]): Peripheral IV Urinary Cath still in place: No Assessment/Plan Assessment/Plan 51 year old female with: 1. Atrial fibrillation, chronic, patient in rapid ventricular rate this morning , remains hemodynamically stable but slightly hypotensive, was started on amiodarone drip and transferred to intensive care unit. Check digoxin level, continue amiodarone drip for now, Cardiology consult place, patient has been seen by Dr. Kim as an outpatient preoperatively. Replete potassium level, check magnesium and replete as needed. 2. Status post Left hemicolectomy for sigmoid adenocarcinoma/mass POD#3, s/p total of 4 units pRBC as of yesterday. Dr. Aldana following, appreciate recommendations. Patient with postop ileus, NG tube in place to suction. All medication to be converted to IV form if possible. NPO, IV fluids 3. ? Chronic congestive heart failure, with no diastolic dysfunction and ejection fraction of 55% on latest outpatient echocardiogram in January 2017 She has been on diuretics as an outpatient which we held at this time given ongoing acute bleeding. Monitor volume status. On gentle IV fluids while n.p.o. and NGT on suction. 4. Hypertension, antihypertensive of been resumed however needs to be held for SBP<110 in setting uncontrolled atrial fibrillation with episodes of low BP. 5. Hyperlipidemia: Resume home medications when able to take p.o. Prophylaxis: SCDs to lower extremity for DVT prophylaxis, Pepcid for GI prophylaxis. Disposition: Follow-up cardiology recommendations today, continue amnio drip, follow up on magnesium level for repletion as needed. Replete potassium. Subjective 24 Hr Interval Summary Free Text/Dictation Patient was a rapid response this morning for atrial fibrillation with rapid ventricular rate. She does have chronic A. fib, she is having malabsorption of medications likely due to ileus. He was started on amiodarone drip and transferred to intensive care unit. If remains stable she will be transferred back to telemetry on amiodarone drip possibly, cardiology consult pending. Exam/Review of Systems Vital Signs Vitals Vital Signs Date Time Temp Pulse Resp B/P Pulse Ox O2 Delivery O2 Flow Rate FiO2 07/29/17 09:00 156 28 92/67 97 07/29/17 04:36 97.8 07/26/17 19:00 Nasal Cannula 07/26/17 18:41 2.0 Intake and Output 07/28/17 07/28/17 07/29/17 15:00 23:00 07:00 Intake Total 254 ml 1454 ml Output Total 1175 ml Balance 254 ml 279 ml Exam Constitutional: alert, obese, oriented, other (NG tube in place) Respiratory: clear to auscultation, normal air movement Cardiovascular: irregular rhythm (Atrial fibrillation with rapid ventricular rate) Gastrointestinal: bowel sounds (Hypoactive), non-tender, soft Musculoskeletal: nl extremities to inspection, other (No edema, clubbing or cyanosis) 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, nl mental status, nl speech, other ( Generalized weakness) Results Result Diagram: 07/29/17 0649 07/29/17 0649 Results 24 hrs Laboratory Tests Test 07/28/17 13:20 07/29/17 06:49 Urine Color JEANNA Urine Clarity CLEAR Urine pH 5.0 Urine Specific [place] 1.036 H Urine Ketones 2+ H Urine Nitrite NEGATIVE Urine Bilirubin NEGATIVE Urine Urobilinogen 1+ H Urine Leukocyte Esterase NEGATIVE Urine Microscopic RBC 2 Urine Microscopic WBC 3 Urine Mucus FEW A Urine Hemoglobin NEGATIVE Urine Glucose NEGATIVE Urine Total Protein 1+ H White Blood Count 10.7 # Red Blood Count 4.58 Hemoglobin 11.6 L Hematocrit 37.5 Mean Corpuscular Volume 81.9 L Mean Corpuscular Hemoglobin 25.3 L Mean Corpuscular Hemoglobin Concent 30.9 L Red Cell Distribution Width 19.4 H Platelet Count 212 Mean Platelet Volume 10.8 H Neutrophils % Lymphocytes % Monocytes % Eosinophils % Basophils % Nucleated Red Blood Cells % 0.0 Neutrophils # Lymphocytes # Monocytes # Eosinophils # Basophils # Nucleated Red Blood Cells # Sodium Level 140 Potassium Level 3.5 Chloride Level 105 Carbon Dioxide Level 26 Anion Gap 13 Blood Urea Nitrogen 18 Creatinine 0.88 Glucose Level 131 Calcium Level 8.7 Medications Medications Current Medications Digoxin (Digoxin) 0.125 mg DAILY@13 PO Last administered on 07/28/17 12:50; Admin Dose 0.125 MG; Start 07/24/17 at 13:00 Lisinopril (Zestril) 20 mg DAILY PO Last administered on 07/28/17 09:44; Admin Dose 20 MG; Start 07/24/17 at 09:00 Loratadine (Claritin) 10 mg DAILY PO Last administered on 07/28/17 09:44; Admin Dose 10 MG; Start 07/24/17 at 09:00 Spironolactone (Aldactone) 25 mg DAILY PO Last administered on 07/28/17 09:44 ; Admin Dose 25 MG; Start 07/24/17 at 09:00 Acetaminophen (Tylenol Tab) 650 mg Q4H PRN PO pain/fever; Start 07/24/17 at 07 :00; Status Future Hold Diphenhydramine HCl (Benadryl) 25 mg Q6H PRN PO itch; Start 07/24/17 at 07:00 Morphine Sulfate (morphine) 2 mg Q4H PRN IV PAIN LEVEL 1-5 Last administered on 07/26/17 11:18; Admin Dose 2 MG; Start 07/24/17 at 12:27 Morphine Sulfate (morphine) 4 mg Q4H PRN IV PAIN LEVEL 6-10; Start 07/24/17 at 12:27 Famotidine 20 mg 20 mg BID IV Last administered on 07/28/17 20:56; Admin Dose 20 MG; Start 07/24/17 at 21:00 Sodium Chloride (NS) 1,000 ml @ 100 mls/hr Q10H IV Last administered on 06:05; Admin Dose 100 MLS/HR; Start 07/26/17 at 17:10 Naloxone HCl 0.2 mg 0.2 mg Q2M PRN IV RR 8 BREATHS/MIN OR LESS; Start at 18:00 Acetaminophen (Ofirmev 1000mg/ 100ml Iv) 100 ml @ 400 mls/hr Q6H IVPB Last administered on 07/29/17 05:14; Admin Dose 400 MLS/HR; Start 07/26/17 at 18: 00 Naloxone HCl (Narcan) 0.2 mg PRN PRN IV DECREASED REPIRATORY RATE; Start 07/26 at 18:00 Morphine Sulfate Q4PCA IV Last administered on 07/26/17 18:02; Admin Dose 30 MG; Start 07/26/17 at 18:00 Ondansetron HCl 8 mg/Sodium Chloride 54 ml @ 216 mls/hr Q6H PRN IV NAUSEA AND/ OR VOMITING Last administered on 07/29/17 02:49; Admin Dose 216 MLS/HR; Start 07/27/17 at 13:00 Metronidazole 100 ml @ 100 mls/hr Q8 IVPB Last administered on 07/29/17 05: 46; Admin Dose 100 MLS/HR; Start 07/28/17 at 22:00 Ciprofloxacin/ Dextrose 200 ml @ 200 mls/hr Q12 IVPB Last administered on 20:57; Admin Dose 200 MLS/HR; Start 07/28/17 at 21:00 Amiodarone HCl/ Dextrose (Cordarone Iv/ D5W) 500 ml @ 0 mls/hr Q0M IV Last administered on 07/29/17 08:13; Admin Dose 33.3 MLS/HR; Start 07/29/17 at 07: 30; Stop 07/30/17 at 07:29 RAE CALVO Jul 29, 2017 11:41
--- NOTE | 2017-07-29 12:22 | PN ---
Date/Time of Note Date/Time of Note DATE: 07/29/17 TIME: 12:21 Assessment/Plan VTE Prophylaxis VTE Prophylaxis Intervention: SCD's Lines/Catheters IV [facility] Type (from [facility]): Peripheral IV Urinary Cath still in place: No Assessment/Plan Chief Complaint/Hosp Course s/p lap converted to open extended left hemicolectomy for actively bleeding colon cancer with symptomatic anemia admitted through the ER emergently Problems: Assessment/Plan continue heart rate management Subjective 24 Hr Interval Summary Free Text/Dictation patient in ICU under close monitoring, no new issues Exam/Review of Systems Vital Signs Vitals Vital Signs Date Time Temp Pulse Resp B/P Pulse Ox O2 Delivery O2 Flow Rate FiO2 07/29/17 09:00 156 28 92/67 97 07/29/17 04:36 97.8 07/26/17 19:00 Nasal Cannula 07/26/17 18:41 2.0 Intake and Output 07/28/17 07/28/17 07/29/17 15:00 23:00 07:00 Intake Total 254 ml 1454 ml Output Total 1175 ml Balance 254 ml 279 ml Exam dressings intact Results Result Diagram: 07/29/17 0649 07/29/17 0649 Results 24 hrs Laboratory Tests Test 07/28/17 13:20 07/29/17 06:49 Urine Color JEANNA Urine Clarity CLEAR Urine pH 5.0 Urine Specific [place] 1.036 H Urine Ketones 2+ H Urine Nitrite NEGATIVE Urine Bilirubin NEGATIVE Urine Urobilinogen 1+ H Urine Leukocyte Esterase NEGATIVE Urine Microscopic RBC 2 Urine Microscopic WBC 3 Urine Mucus FEW A Urine Hemoglobin NEGATIVE Urine Glucose NEGATIVE Urine Total Protein 1+ H White Blood Count 10.7 # Red Blood Count 4.58 Hemoglobin 11.6 L Hematocrit 37.5 Mean Corpuscular Volume 81.9 L Mean Corpuscular Hemoglobin 25.3 L Mean Corpuscular Hemoglobin Concent 30.9 L Red Cell Distribution Width 19.4 H Platelet Count 212 Mean Platelet Volume 10.8 H Neutrophils % Lymphocytes % Monocytes % Eosinophils % Basophils % Nucleated Red Blood Cells % 0.0 Neutrophils # Lymphocytes # Monocytes # Eosinophils # Basophils # Nucleated Red Blood Cells # Sodium Level 140 Potassium Level 3.5 Chloride Level 105 Carbon Dioxide Level 26 Anion Gap 13 Blood Urea Nitrogen 18 Creatinine 0.88 Glucose Level 131 Calcium Level 8.7 Magnesium Level 2.1 Digoxin Level < 0.4 L Medications Medications Current Medications Digoxin (Digoxin) 0.125 mg DAILY@13 PO Last administered on 07/28/17 12:50; Admin Dose 0.125 MG; Start 07/24/17 at 13:00 Lisinopril (Zestril) 20 mg DAILY PO Last administered on 07/28/17 09:44; Admin Dose 20 MG; Start 07/24/17 at 09:00 Loratadine (Claritin) 10 mg DAILY PO Last administered on 07/28/17 09:44; Admin Dose 10 MG; Start 07/24/17 at 09:00 Acetaminophen (Tylenol Tab) 650 mg Q4H PRN PO pain/fever; Start 07/24/17 at 07 :00; Status Future Hold Diphenhydramine HCl (Benadryl) 25 mg Q6H PRN PO itch; Start 07/24/17 at 07:00 Morphine Sulfate (morphine) 2 mg Q4H PRN IV PAIN LEVEL 1-5 Last administered on 07/26/17 11:18; Admin Dose 2 MG; Start 07/24/17 at 12:27 Morphine Sulfate (morphine) 4 mg Q4H PRN IV PAIN LEVEL 6-10; Start 07/24/17 at 12:27 Famotidine 20 mg 20 mg BID IV Last administered on 07/29/17 11:25; Admin Dose 20 MG; Start 07/24/17 at 21:00 Sodium Chloride (NS) 1,000 ml @ 100 mls/hr Q10H IV Last administered on 06:05; Admin Dose 100 MLS/HR; Start 07/26/17 at 17:10 Naloxone HCl 0.2 mg 0.2 mg Q2M PRN IV RR 8 BREATHS/MIN OR LESS; Start at 18:00 Acetaminophen (Ofirmev 1000mg/ 100ml Iv) 100 ml @ 400 mls/hr Q6H IVPB Last administered on 07/29/17 05:14; Admin Dose 400 MLS/HR; Start 07/26/17 at 18: 00 Naloxone HCl (Narcan) 0.2 mg PRN PRN IV DECREASED REPIRATORY RATE; Start 07/26 at 18:00 Morphine Sulfate Q4PCA IV Last administered on 07/26/17 18:02; Admin Dose 30 MG; Start 10/27/17 at 18:00 Ondansetron HCl 8 mg/Sodium Chloride 54 ml @ 216 mls/hr Q6H PRN IV NAUSEA AND/ OR VOMITING Last administered on 07/29/17 02:49; Admin Dose 216 MLS/HR; Start 07/27/17 at 13:00 Metronidazole 100 ml @ 100 mls/hr Q8 IVPB Last administered on 07/29/17 05: 46; Admin Dose 100 MLS/HR; Start 07/28/17 at 22:00 Ciprofloxacin/ Dextrose 200 ml @ 200 mls/hr Q12 IVPB Last administered on 11:23; Admin Dose 200 MLS/HR; Start 07/28/17 at 21:00 Amiodarone HCl 900 mg/Dextrose 500 ml @ 0 mls/hr Q0M IV Last administered on 08:13; Admin Dose 33.3 MLS/HR; Start 07/29/17 at 07:30; Stop at 07:29 Potassium Chloride (KCl 40 MEQ/250 ML NS) 250 ml @ 62.5 mls/hr ONCE ONCE IVPB ; Start 07/29/17 at 11:30; Stop 07/29/17 at 15:29 Hilario BOTELLO Jul 29, 2017 12:22
[2017-07-29 12:44] LABS: LYMPHOCYTES # 0.2 10^3/ul (0.8-2.9); MONOCYTE # 0.2 10^3/ul (0.3-0.9); MONOCYTES % (M) 2 % (0-11)
[2017-07-29] MEDS: DIGOXIN 0.125 MG TAB PO SCH (12:55)
[2017-07-29] MEDS: PHENOL 1.4% SOLN 180 ML BTL MT PRN ×3 (13:12→18:10)
--- NOTE | 2017-07-29 14:15 | RADRPT ---
PROCEDURE: XR Chest. CLINICAL INDICATION: Shortness of breath TECHNIQUE: Single portable view of the chest was obtained COMPARISON: March 10, 2014 FINDINGS: The trachea is midline. NG tube is noted with its tip coursing below the hemidiaphragms The cardiac silhouette and pulmonary vascularity are within normal limits. The lungs are clear. The costophrenic angles are sharp. IMPRESSION: 1. No evidence of acute cardiopulmonary disease. 2. NG tube in satisfactory position. RPTAT: AAPP Physician Stacy Date Time Electronically viewed and signed by Mariaelena Dexter Physician on 07/29/2017 14:15 JL/
--- NOTE | 2017-07-29 15:34 | CONS ---
Date/Time of Note Date/Time of Note DATE: 07/29/17 TIME: 15:28 Assessment/Plan Assessment/Plan Additional Assessment/Plan Paroxysmal atrial fibrillation with rapid ventricular rates, currently sinus rhythm Colon mass status post colon surgery July 26, 2017 SIRS History of CHF History of hypertension -Patient currently in sinus rhythm, continue IV amiodarone since unable to take p.o., switch digoxin to IV, maintain potassium above 4.0 and magnesium above 2.0. In discussion with nursing staff, urine output has been low and urine appears concentrated. Would continue IV fluids as long as respiratory status remains stable (chest x-ray this morning with no evidence of pulmonary vascular congestion). Restart anticoagulation when okay by our surgery colleagues. Consultation Date/Type/Reason Admit Date/Time Date of Consultation: Jul 29, 2017 Type of Consultation: cv Reason for Consultation Atrial fibrillation Hx of Present Illness This is a 51-year-old female with past medical history of colon mass status post abdominal surgery on this admission, congestive heart failure, paroxysmal atrial fibrillation who underwent surgery for colon mass on July 26, 2017. Yesterday, patient with atrial fibrillation with left ventricular rates and transferred to ICU. Patient's are on IV amiodarone. Patient was complaining of symptoms or shortness of breath and palpitations. Rates have been better controlled this morning and she recently converted to sinus rhythm. She currently denies any shortness of breath, palpitations or chest pain. She is complaining of significant abdominal pain. She denies any dizziness or lightheadedness 12 point review of systems was performed with all pertinent positives and negatives mentioned above and all else is negative Eyes: no complaints ENT: no complaints Respiratory: other (Dyspnea on exertion) Genitourinary: no complaints Musculoskeletal: no complaints Skin: no complaints Neurologic: no complaints Lymphatic: no complaints Psychological: no complaints Past Medical History Atrial fibrillation Medical History: congestive heart failure, hypertension Past Surgical History Recent colon surgery Social History Alcohol Use: none Smoking Status: Former smoker (Quit 20 years ago) Drug Use: marijuana (Patient was a daily marijuana user but quit 100 days ago ) Exam/Review of Systems Vital Signs Vitals Vital Signs Date Time Temp Pulse Resp B/P Pulse Ox O2 Delivery O2 Flow Rate FiO2 07/29/17 13:15 95 30 110/70 98 07/29/17 13:00 Nasal Cannula 2.0 07/29/17 12:00 99.0 Intake and Output 07/28/17 07/28/17 07/29/17 15:00 23:00 07:00 Intake Total 254 ml 1454 ml Output Total 1175 ml Balance 254 ml 279 ml Exam Appears uncomfortable, does not appear dyspneic Constitutional: alert, oriented Head: normocephalic ENMT: other (NG tube) Respiratory: other (Coarse breath sounds bilaterally, no wheezing) Cardiovascular: other (S1-S2 heard), regular rate and rhythm Gastrointestinal: other (Diminished bowel sounds, bandages on her abdomen), soft Extremities: edema (Trace) Results Result Diagram: 07/29/17 0649 07/29/17 0649 Results 24 hrs Laboratory Tests Test 07/29/17 06:49 White Blood Count 10.7 # Red Blood Count 4.58 Hemoglobin 11.6 L Hematocrit 37.5 Mean Corpuscular Volume 81.9 L Mean Corpuscular Hemoglobin 25.3 L Mean Corpuscular Hemoglobin Concent 30.9 L Red Cell Distribution Width 19.4 H Platelet Count 212 Mean Platelet Volume 10.8 H Neutrophils % Segmented Neutrophils % (Manual) 81 H Band Neutrophils % (Manual) 15 H Lymphocytes % Lymphocytes % (Manual) 2 L Monocytes % Monocytes % (Manual) 2 Eosinophils % Basophils % Nucleated Red Blood Cells % 0.0 Neutrophils # Neutrophils # (Manual) 8.8 H Band Neutrophils # 1.6 H Absolute Lymphocytes (Manual) 0.2 L Lymphocytes # 0.2 L Monocytes # 0.2 L Absolute Monocytes (Manual) 0.2 L Eosinophils # Basophils # Nucleated Red Blood Cells # Sodium Level 140 Potassium Level 3.5 Chloride Level 105 Carbon Dioxide Level 26 Anion Gap 13 Blood Urea Nitrogen 18 Creatinine 0.88 Glucose Level 131 Calcium Level 8.7 Magnesium Level 2.1 Digoxin Level < 0.4 L Medications Medications Current Medications Lisinopril (Zestril) 20 mg DAILY PO Last administered on 07/28/17 09:44; Admin Dose 20 MG; Start 07/24/17 at 09:00 Loratadine (Claritin) 10 mg DAILY PO Last administered on 07/28/17 09:44; Admin Dose 10 MG; Start 07/24/17 at 09:00 Acetaminophen (Tylenol Tab) 650 mg Q4H PRN PO pain/fever; Start 07/24/17 at 07 :00; Status Future Hold Diphenhydramine HCl (Benadryl) 25 mg Q6H PRN PO itch; Start 07/24/17 at 07:00 Morphine Sulfate (morphine) 2 mg Q4H PRN IV PAIN LEVEL 1-5 Last administered on 07/26/17 11:18; Admin Dose 2 MG; Start 07/24/17 at 12:27 Morphine Sulfate (morphine) 4 mg Q4H PRN IV PAIN LEVEL 6-10; Start 07/24/17 at 12:27 Famotidine 20 mg 20 mg BID IV Last administered on 07/29/17 11:25; Admin Dose 20 MG; Start 07/24/17 at 21:00 Sodium Chloride (NS) 1,000 ml @ 100 mls/hr Q10H IV Last administered on 15:13; Admin Dose 100 MLS/HR; Start 07/26/17 at 17:10 Naloxone HCl 0.2 mg 0.2 mg Q2M PRN IV RR 8 BREATHS/MIN OR LESS; Start at 18:00 Acetaminophen (Ofirmev 1000mg/ 100ml Iv) 100 ml @ 400 mls/hr Q6H IVPB Last administered on 07/29/17 13:06; Admin Dose 400 MLS/HR; Start 07/26/17 at 18: 00 Naloxone HCl (Narcan) 0.2 mg PRN PRN IV DECREASED REPIRATORY RATE; Start 07/26 at 18:00 Morphine Sulfate Q4PCA IV Last administered on 07/26/17 18:02; Admin Dose 30 MG; Start 07/26/17 at 18:00 Ondansetron HCl 8 mg/Sodium Chloride 54 ml @ 216 mls/hr Q6H PRN IV NAUSEA AND/ OR VOMITING Last administered on 07/29/17 12:26; Admin Dose 216 MLS/HR; Start 07/27/17 at 13:00 Metronidazole 100 ml @ 100 mls/hr Q8 IVPB Last administered on 07/29/17 15: 13; Admin Dose 100 MLS/HR; Start 07/28/17 at 22:00 Ciprofloxacin/ Dextrose 200 ml @ 200 mls/hr Q12 IVPB Last administered on 11:23; Admin Dose 200 MLS/HR; Start 07/28/17 at 21:00 Amiodarone HCl 900 mg/Dextrose 500 ml @ 0 mls/hr Q0M IV Last administered on 08:13; Admin Dose 33.3 MLS/HR; Start 07/29/17 at 07:30; Stop at 07:29 Potassium Chloride (KCl 40 MEQ/250 ML NS) 250 ml @ 62.5 mls/hr ONCE ONCE IVPB Last administered on 07/29/17 15:13; Admin Dose 62.5 MLS/HR; Start at 11:30; Stop 07/29/17 at 15:29 Phenol (Chloraseptic Throat [place]) 2 spray Q2H PRN MT SORE THROAT Last administered on 07/29/17 15:17; Admin Dose 2 SPRAY; Start 07/29/17 at 13:00 Digoxin (Digoxin) 125 mcg DAILY@13 IV ; Start 07/30/17 at 13:00 Procedures Procedures ECG this morning with atrial fibrillation with rapid ventricular rates, left bundle branch ECG done July 24 with sinus rhythm, left bundle branch block Fercho Mojica DO Jul 29, 2017 15:34
[2017-07-30] VITALS (24 sets, daily range): BP systolic 113–147; BP diastolic 68–100; PULSE 68–138; RESP 13–29
[2017-07-30] MEDS: metroNIDAZOLE 500 MG/NS (PMX) 100 ML IVPB SCH ×4 (00:27→22:35)
[2017-07-30] MEDS: ACETAMINOPHEN 1000MG/100ML IV 100 ML IVPB SCH ×4 (00:27→18:01)
[2017-07-30] MEDS: SOD CHLORIDE 0.9% 1,000 ML IV SCH ×3 (00:28→18:01)
[2017-07-30] MEDS: ONDANSETRON INJ 8 MG in SOD CHLORIDE 0.9% 50 ML IV PRN ×4 (00:56→18:41)
[2017-07-30 05:36] LABS: BASOPHIL # 0.1 10^3/ul (0.0-0.1); BASOPHILS % 0.4 % (0.0-2.0); EOSINOPHILS # 0.1 10^3/ul (0.0-0.5); EOSINOPHILS % 0.9 % (0.0-7.0); HEMOGLOBIN 10.5 g/dl (12.0-16.0); LYMPHOCYTES # 0.7 10^3/ul (0.8-2.9); LYMPHOCYTES % 6.3 % (15.0-51.0); MEAN CORPUSCULAR HEMOGLOBIN 25.5 pg (29.0-33.0); MEAN CORPUSCULAR HGB CONC 30.9 g/dl (32.0-37.0); MEAN CORPUSCULAR VOLUME 82.7 fl (82.0-101.0); MEAN PLATELET VOLUME 11.1 fl (7.4-10.4); MONOCYTE # 0.6 10^3/ul (0.3-0.9); MONOCYTES % 5.1 % (0.0-11.0); NEUTROPHIL # 10.2 10^3/ul (1.6-7.5); NEUTROPHILS % 86.9 % (39.0-77.0); PLATELET COUNT 217 10^3/UL (140-415); RED BLOOD COUNT 4.11 10^6/ul (4.20-5.40); RED CELL DISTRIBUTION WIDTH 19.4 % (11.5-14.5); WHITE BLOOD COUNT 11.8 10^3/ul (4.8-10.8)
[2017-07-30 05:38] LABS: POSITIVE DIFF @See below
[2017-07-30 06:06] LABS: MAGNESIUM 2.3 mg/dl (1.7-2.5); PHOSPHORUS 3.4 mg/dl (2.5-4.9)
[2017-07-30 06:10] LABS: ALBUMIN/GLOBULIN RATIO 1.15; CREATININE 0.89 mg/dl (0.44-1.00); POTASSIUM 3.9 mmol/L (3.5-5.1); TOTAL PROTEIN 5.6 g/dl (6.1-8.1)
[2017-07-30] MEDS: LORATADINE 10 MG TAB PO SCH (09:00)
--- NOTE | 2017-07-30 10:18 | PN ---
Date/Time of Note Date/Time of Note DATE: 07/30/17 TIME: 10:05 Assessment/Plan VTE Prophylaxis VTE Prophylaxis Intervention: SCD's Lines/Catheters IV Catheter Type (from Nrsg): Peripheral IV Urinary Cath still in place: Yes Reason Cath still needed: other (indicate) (Postoperatively, should be discontinued within the next 24 hours) Assessment/Plan Assessment/Plan 51 year old female with: 1. Atrial fibrillation, chronic, patient back in sinus rhythm, patient done with amiodarone drip, on digoxin IV, appreciate cardiology recommendations. Will correct electrolytes IV as needed. Transfer back to telemetry. Resume anticoagulation when okay with general surgery, Dr. Aldana. Replete potassium level, check magnesium and replete as needed. 2. Status post Left hemicolectomy for sigmoid adenocarcinoma/mass POD#4, s/p total of 4 units pRBC since admission. Dr. Aldana following, appreciate recommendations. Patient with postop ileus, NG tube in place to suction. All medications to be converted to IV for now. NPO, IV fluids PT, encourage ambulation. 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 Trial of Dilaudid IV as needed for pain control 3. ? Chronic congestive heart failure, with no diastolic dysfunction and ejection fraction of 55% on latest outpatient echocardiogram in January 2017 She has been on diuretics as an outpatient which we held at this time given ongoing acute bleeding. Monitor volume status. On gentle IV fluids while n.p.o. and NGT on suction. 4. Hypertension, antihypertensive resumed with holding parameters. 5. Hyperlipidemia: Resume home medications when able to take p.o. Prophylaxis: SCDs to lower extremity for DVT prophylaxis, Pepcid for GI prophylaxis. Resume anticoagulation for stroke prophylaxis when okay with general surgery Disposition: Follow-up further general surgery and cardiology recommendations. 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 She is using Zofran almost around-the- clock at this point. Will discontinue morphine, trial of Dilaudid. Back in sinus rhythm, transferred back to telemetry today. Exam/Review of Systems Vital Signs Vitals Vital Signs Date Time Temp Pulse Resp B/P Pulse Ox O2 Delivery O2 Flow Rate FiO2 07/30/17 08:00 74 07/30/17 07:00 25 123/72 99 Nasal Cannula 07/30/17 04:00 98.6 07/29/17 20:00 2.0 Intake and Output 07/29/17 07/29/17 07/30/17 15:00 23:00 07:00 Intake Total 1270.64 ml 1470.64 ml 1208 ml Output Total 250 ml 605 ml 210 ml Balance 1020.64 ml 865.64 ml 998 ml Exam Constitutional: other (Lethargic, sedated.) Respiratory: clear to auscultation, normal air movement Cardiovascular: nl pulses, regular rate and rhythm (Back in sinus rhythm) Gastrointestinal: soft, tender (Diffuse postop) Musculoskeletal: nl extremities to inspection Extremities: normal pulses, other (No edema, clubbing or cyanosis) 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, lethargic, nl speech Results Result Diagram: 07/30/1744607/30/17446 Results 24 hrs Laboratory Tests Test 07/30/17 04:47 White Blood Count 11.8 H Red Blood Count 4.11 L Hemoglobin 10.5 L Hematocrit 34.0 L Mean Corpuscular Volume 82.7 Mean Corpuscular Hemoglobin 25.5 L Mean Corpuscular Hemoglobin Concent 30.9 L Red Cell Distribution Width 19.4 H Platelet Count 217 Mean Platelet Volume 11.1 H Neutrophils % 86.9 H Lymphocytes % 6.3 L Monocytes % 5.1 Eosinophils % 0.9 Basophils % 0.4 Nucleated Red Blood Cells % 0.0 Neutrophils # 10.2 H Lymphocytes # 0.7 L Monocytes # 0.6 Eosinophils # 0.1 Basophils # 0.1 Nucleated Red Blood Cells # 0.0 Sodium Level 142 Potassium Level 3.9 Chloride Level 104 Carbon Dioxide Level 31 Anion Gap 11 Blood Urea Nitrogen 24 H Creatinine 0.89 Glucose Level 111 Calcium Level 8.0 L Phosphorus Level 3.4 Magnesium Level 2.3 Total Bilirubin 1.0 Direct Bilirubin 0.00 Indirect Bilirubin 1.0 Aspartate Amino Transf (AST/SGOT) 12 L Alanine Aminotransferase (ALT/SGPT) 22 Alkaline Phosphatase 66 Total Protein 5.6 L Albumin 3.0 L Globulin 2.60 Albumin/Globulin Ratio 1.15 Medications Medications Current Medications Loratadine (Claritin) 10 mg DAILY PO Last administered on 07/28/17 09:44; Admin Dose 10 MG; Start 07/24/17 at 09:00 Acetaminophen (Tylenol Tab) 650 mg Q4H PRN PO pain/fever; Start 07/24/17 at 07 :00; Status Future Hold Diphenhydramine HCl (Benadryl) 25 mg Q6H PRN PO itch; Start 07/24/17 at 07:00 Morphine Sulfate (morphine) 2 mg Q4H PRN IV PAIN LEVEL 1-5 Last administered on 07/26/17 11:18; Admin Dose 2 MG; Start 07/24/17 at 12:27 Morphine Sulfate (morphine) 4 mg Q4H PRN IV PAIN LEVEL 6-10; Start 07/24/17 at 12:27 Famotidine 20 mg 20 mg BID IV Last administered on 07/29/17 20:29; Admin Dose 20 MG; Start 07/24/17 at 21:00 Sodium Chloride (NS) 1,000 ml @ 100 mls/hr Q10H IV Last administered on 00:28; Admin Dose 100 MLS/HR; Start 07/26/17 at 17:10 Naloxone HCl 0.2 mg 0.2 mg Q2M PRN IV RR 8 BREATHS/MIN OR LESS; Start at 18:00 Acetaminophen (Ofirmev 1000mg/ 100ml Iv) 100 ml @ 400 mls/hr Q6H IVPB Last administered on 07/30/17 06:03; Admin Dose 400 MLS/HR; Start 07/26/17 at 18: 00 Naloxone HCl (Narcan) 0.2 mg PRN PRN IV DECREASED REPIRATORY RATE; Start 07/26 at 18:00 Morphine Sulfate Q4PCA IV Last administered on 07/26/17 18:02; Admin Dose 30 MG; Start 07/26/17 at 18:00 Ondansetron HCl 8 mg/Sodium Chloride 54 ml @ 216 mls/hr Q6H PRN IV NAUSEA AND/ OR VOMITING Last administered on 07/30/17 06:03; Admin Dose 216 MLS/HR; Start 07/27/17 at 13:00 Metronidazole 100 ml @ 100 mls/hr Q8 IVPB Last administered on 07/30/17 06: 03; Admin Dose 100 MLS/HR; Start 07/28/17 at 22:00 Ciprofloxacin/ Dextrose (Cipro Ivpb) 200 ml @ 200 mls/hr Q12 IVPB Last administered on 07/29/17 20:29; Admin Dose 200 MLS/HR; Start 07/28/17 at 21: 00 Phenol (Chloraseptic Throat [place]) 2 spray Q2H PRN MT SORE THROAT Last administered on 07/29/17 18:10; Admin Dose 2 SPRAY; Start 07/29/17 at 13:00 Digoxin (Digoxin) 125 mcg DAILY@13 IV ; Start 07/30/17 at 13:00 RAE CALVO Jul 30, 2017 10:15
[2017-07-30] MEDS: FAMOTIDINE 20 MG INJ IV SCH ×2 (10:20→20:52)
[2017-07-30] MEDS: CIPROFLOXACIN 400MG/D5W 200 ML IVPB SCH ×2 (10:20→20:51)
[2017-07-30] MEDS ORDERED: HYDROmorphONE 0.5 MG/0.5 ML SYG IV PRN (10:30)
[2017-07-30] MEDS ORDERED: DIGOXIN 500 MCG INJ IV ONE ×2 (12:00→13:30)
[2017-07-30] MEDS: DIGOXIN 500 MCG INJ IV SCH (12:22)
--- NOTE | 2017-07-30 13:01 | PN ---
Date/Time of Note Date/Time of Note DATE: 07/30/17 TIME: 12:59 Assessment/Plan VTE Prophylaxis VTE Prophylaxis Intervention: SCD's Lines/Catheters IV Catheter Type (from Nrsg): Peripheral IV Urinary Cath still in place: Yes Reason Cath still needed: urinary retention Assessment/Plan Chief Complaint/Hosp Course s/p lap converted to open extended left hemicolectomy for actively bleeding colon cancer with symptomatic anemia admitted through the ER emergently Problems: Assessment/Plan doing better with sinus rhythm from cardiac standpoint, decreased bilious output from NGT passing flatus probably dc ngt tomorrow ok to transfer to tele floor from surgical standpoint if ok with medical team will consider restarting anticoagulation saturday or Subjective 24 Hr Interval Summary Free Text/Dictation from cardiac standpoint back in sinus, from surgical standpoint still ileus, passing flatus Exam/Review of Systems Vital Signs Vitals Vital Signs Date Time Temp Pulse Resp B/P Pulse Ox O2 Delivery O2 Flow Rate FiO2 07/30/17 10:00 72 20 117/68 100 Nasal Cannula 2.0 07/30/17 09:00 98.7 Intake and Output 07/29/17 07/29/17 07/30/17 15:00 23:00 07:00 Intake Total 1270.64 ml 1470.64 ml 1324.66 ml Output Total 250 ml 605 ml 230 ml Balance 1020.64 ml 865.64 ml 1094.66 ml Exam dressings clean and intact Results Result Diagram: 07/30/17 0447 07/30/17 0447 Results 24 hrs Laboratory Tests Test 07/30/17 04:47 White Blood Count 11.8 H Red Blood Count 4.11 L Hemoglobin 10.5 L Hematocrit 34.0 L Mean Corpuscular Volume 82.7 Mean Corpuscular Hemoglobin 25.5 L Mean Corpuscular Hemoglobin Concent 30.9 L Red Cell Distribution Width 19.4 H Platelet Count 217 Mean Platelet Volume 11.1 H Neutrophils % 86.9 H Lymphocytes % 6.3 L Monocytes % 5.1 Eosinophils % 0.9 Basophils % 0.4 Nucleated Red Blood Cells % 0.0 Neutrophils # 10.2 H Lymphocytes # 0.7 L Monocytes # 0.6 Eosinophils # 0.1 Basophils # 0.1 Nucleated Red Blood Cells # 0.0 Sodium Level 142 Potassium Level 3.9 Chloride Level 104 Carbon Dioxide Level 31 Anion Gap 11 Blood Urea Nitrogen 24 H Creatinine 0.89 Glucose Level 111 Calcium Level 8.0 L Phosphorus Level 3.4 Magnesium Level 2.3 Total Bilirubin 1.0 Direct Bilirubin 0.00 Indirect Bilirubin 1.0 Aspartate Amino Transf (AST/SGOT) 12 L Alanine Aminotransferase (ALT/SGPT) 22 Alkaline Phosphatase 66 Total Protein 5.6 L Albumin 3.0 L Globulin 2.60 Albumin/Globulin Ratio 1.15 Medications Medications Current Medications Loratadine (Claritin) 10 mg DAILY PO Last administered on 07/28/17 09:44; Admin Dose 10 MG; Start 07/24/17 at 09:00 Acetaminophen (Tylenol Tab) 650 mg Q4H PRN PO pain/fever; Start 07/24/17 at 07 :00; Status Future Hold Diphenhydramine HCl (Benadryl) 25 mg Q6H PRN PO itch; Start 07/24/17 at 07:00 Famotidine 20 mg 20 mg BID IV Last administered on 07/30/17 10:20; Admin Dose 20 MG; Start 07/24/17 at 21:00 Sodium Chloride (NS) 1,000 ml @ 100 mls/hr Q10H IV Last administered on 00:28; Admin Dose 100 MLS/HR; Start 07/26/17 at 17:10 Naloxone HCl 0.2 mg 0.2 mg Q2M PRN IV RR 8 BREATHS/MIN OR LESS; Start at 18:00 Acetaminophen (Ofirmev 1000mg/ 100ml Iv) 100 ml @ 400 mls/hr Q6H IVPB Last administered on 07/30/17 12:01; Admin Dose 400 MLS/HR; Start 07/26/17 at 18: 00 Naloxone HCl 0.2 mg 0.2 mg PRN PRN IV DECREASED REPIRATORY RATE; Start at 18:00 Ondansetron HCl 8 mg/Sodium Chloride 54 ml @ 216 mls/hr Q6H PRN IV NAUSEA AND/ OR VOMITING Last administered on 07/30/17 12:35; Admin Dose 216 MLS/HR; Start 07/27/17 at 13:00 Metronidazole 100 ml @ 100 mls/hr Q8 IVPB Last administered on 07/30/17 06: 03; Admin Dose 100 MLS/HR; Start 07/28/17 at 22:00 Ciprofloxacin/ Dextrose (Cipro Ivpb) 200 ml @ 200 mls/hr Q12 IVPB Last administered on 07/30/17 10:20; Admin Dose 200 MLS/HR; Start 07/28/17 at 21: 00 Phenol (Chloraseptic Throat [place]) 2 spray Q2H PRN MT SORE THROAT Last administered on 07/29/17 18:10; Admin Dose 2 SPRAY; Start 07/29/17 at 13:00 Digoxin (Digoxin) 125 mcg DAILY@13 IV ; Start 07/30/17 at 13:00 Hydromorphone HCl (Dilaudid) 1 mg Q3H PRN IV PAIN LEVEL 6-10; Start 07/30/17 at 10:30 Hydromorphone HCl (Dilaudid) 0.5 mg Q3H PRN IV PAIN LEVEL 1-5; Start 07/30/17 at 10:30 Hilario BOTELLO Jul 30, 2017 13:01
[2017-07-30] MEDS: AMIODARONE 900 MG in DEXTROSE 5% 482 ML IV SCH (13:53)
--- NOTE | 2017-07-30 14:45 | RADRPT ---
Vent Rate: 166 bpm RR Interval: 0 msec ME Interval: 0 msec QRS Duration: 138 msec QT Interval: 326 msec QTC Interval: 541 msec P-R-T [place]: 0 - -40 - 147 degrees Atrial fibrillation with rapid ventricular response with premature ventricular or aberrantly conducted complexes Left axis deviation Left bundle branch block Abnormal ECG Electronically Signed By: Rian Lriiano [id number]
--- NOTE | 2017-07-30 14:56 | RADRPT ---
Vent Rate: 93 bpm RR Interval: 0 msec SD Interval: 170 msec QRS Duration: 156 msec QT Interval: 394 msec QTC Interval: 489 msec P-R-T [place]: 35 - -20 - 125 degrees Normal sinus rhythm Left bundle branch block Abnormal ECG Electronically Signed By: Rian Liriano [id number]
--- NOTE | 2017-07-30 16:05 | CONS ---
Date/Time of Note Date/Time of Note DATE: 07/30/17 TIME: 16:03 Assessment/Plan Assessment/Plan Additional Assessment/Plan Paroxysmal atrial fibrillation with rapid ventricular rates Colon mass status post colon surgery July 26, 2017 SIRS History of CHF History of hypertension -Patient paroxysmal atrial fibrillation and currently back in atrial fibrillation with rapid ventricular rates. IV amiodarone was restarted. Extra dose of digoxin ordered. Maintain potassium above 4.0 and magnesium above 2.0. Consultation Date/Type/Reason Admit Date/Time Jul 24, 2017 at 06:16 Initial Consult Date 07/29/17 Type of Consultation: cv 24 HR Interval Summary Free Text/Dictation Feeling better, less shortness of breath but still complaining of intermittent palpitations and abdominal pain Exam/Review of Systems Vital Signs Vitals Vital Signs Date Time Temp Pulse Resp B/P Pulse Ox O2 Delivery O2 Flow Rate FiO2 07/30/17 15:00 134 19 118/93 100 Nasal Cannula 2.0 07/30/17 12:00 98.4 Intake and Output 07/29/17 07/29/17 07/30/17 15:00 23:00 07:00 Intake Total 1270.64 ml 1470.64 ml 1324.66 ml Output Total 250 ml 605 ml 230 ml Balance 1020.64 ml 865.64 ml 1094.66 ml Exam Mildly uncomfortable, has NG tube Constitutional: alert, oriented Head: normocephalic Respiratory: other (Coarse breath sounds bilaterally, no wheezing) Cardiovascular: irregular rhythm, other (S1-S2 heard) Gastrointestinal: bowel sounds (Decreased), soft Extremities: edema Results Result Diagram: 07/30/17 0447 07/30/17 044 Results 24 hrs Laboratory Tests Test 07/30/17 04:47 White Blood Count 11.8 H Red Blood Count 4.11 L Hemoglobin 10.5 L Hematocrit 34.0 L Mean Corpuscular Volume 82.7 Mean Corpuscular Hemoglobin 25.5 L Mean Corpuscular Hemoglobin Concent 30.9 L Red Cell Distribution Width 19.4 H Platelet Count 217 Mean Platelet Volume 11.1 H Neutrophils % 86.9 H Lymphocytes % 6.3 L Monocytes % 5.1 Eosinophils % 0.9 Basophils % 0.4 Nucleated Red Blood Cells % 0.0 Neutrophils # 10.2 H Lymphocytes # 0.7 L Monocytes # 0.6 Eosinophils # 0.1 Basophils # 0.1 Nucleated Red Blood Cells # 0.0 Sodium Level 142 Potassium Level 3.9 Chloride Level 104 Carbon Dioxide Level 31 Anion Gap 11 Blood Urea Nitrogen 24 H Creatinine 0.89 Glucose Level 111 Calcium Level 8.0 L Phosphorus Level 3.4 Magnesium Level 2.3 Total Bilirubin 1.0 Direct Bilirubin 0.00 Indirect Bilirubin 1.0 Aspartate Amino Transf (AST/SGOT) 12 L Alanine Aminotransferase (ALT/SGPT) 22 Alkaline Phosphatase 66 Total Protein 5.6 L Albumin 3.0 L Globulin 2.60 Albumin/Globulin Ratio 1.15 Medications Medications Current Medications Loratadine (Claritin) 10 mg DAILY PO Last administered on 07/28/17 09:44; Admin Dose 10 MG; Start 07/24/17 at 09:00 Acetaminophen (Tylenol Tab) 650 mg Q4H PRN PO pain/fever; Start 07/24/17 at 07 :00; Status Future Hold Diphenhydramine HCl (Benadryl) 25 mg Q6H PRN PO itch; Start 07/24/17 at 07:00 Famotidine 20 mg 20 mg BID IV Last administered on 07/30/17 10:20; Admin Dose 20 MG; Start 07/24/17 at 21:00 Sodium Chloride (NS) 1,000 ml @ 100 mls/hr Q10H IV Last administered on 00:28; Admin Dose 100 MLS/HR; Start 07/26/17 at 17:10 Naloxone HCl 0.2 mg 0.2 mg Q2M PRN IV RR 8 BREATHS/MIN OR LESS; Start at 18:00 Acetaminophen (Ofirmev 1000mg/ 100ml Iv) 100 ml @ 400 mls/hr Q6H IVPB Last administered on 07/30/17 12:01; Admin Dose 400 MLS/HR; Start 07/26/17 at 18: 00 Naloxone HCl 0.2 mg 0.2 mg PRN PRN IV DECREASED REPIRATORY RATE; Start at 18:00 Ondansetron HCl 8 mg/Sodium Chloride 54 ml @ 216 mls/hr Q6H PRN IV NAUSEA AND/ OR VOMITING Last administered on 07/30/17 12:35; Admin Dose 216 MLS/HR; Start 07/27/17 at 13:00 Metronidazole 100 ml @ 100 mls/hr Q8 IVPB Last administered on 07/30/17 13: 25; Admin Dose 100 MLS/HR; Start 07/28/17 at 22:00 Ciprofloxacin/ Dextrose (Cipro Ivpb) 200 ml @ 200 mls/hr Q12 IVPB Last administered on 07/30/17 10:20; Admin Dose 200 MLS/HR; Start 07/28/17 at 21: 00 Phenol (Chloraseptic Throat [place]) 2 spray Q2H PRN MT SORE THROAT Last administered on 07/29/17 18:10; Admin Dose 2 SPRAY; Start 07/29/17 at 13:00 Digoxin (Digoxin) 125 mcg DAILY@13 IV ; Start 07/30/17 at 13:00 Hydromorphone HCl (Dilaudid) 1 mg Q3H PRN IV PAIN LEVEL 6-10; Start 07/30/17 at 10:30 Hydromorphone HCl 0.5 mg 0.5 mg Q3H PRN IV PAIN LEVEL 1-5; Start 07/30/17 at 10:30 Amiodarone HCl/ Dextrose (Cordarone Iv/ D5W) 500 ml @ 33.33 mls/ hr Q15H1M IV Last administered on 07/30/17 13:53; Admin Dose 33.33 MLS/HR; Start 07/30/17 at 14:00 Fercho Mojica DO Jul 30, 2017 16:05
[2017-07-30] MEDS: HYDROmorphONE 0.5 MG/0.5 ML SYG IV PRN (21:42)
[2017-07-31] VITALS (41 sets, daily range): BP systolic 118–167; BP diastolic 57–106; PULSE 48–146; RESP 14–29
[2017-07-31] MEDS: ONDANSETRON INJ 8 MG in SOD CHLORIDE 0.9% 50 ML IV PRN ×4 (00:06→19:11)
[2017-07-31] MEDS ORDERED: DIGOXIN 500 MCG INJ IV ONE (00:30)
[2017-07-31] MEDS: ACETAMINOPHEN 1000MG/100ML IV 100 ML IVPB SCH ×4 (00:33→18:30)
[2017-07-31 05:33] LABS: ABNORMAL IP MESSAGE 1; HEMATOCRIT 35.8 % (37.0-47.0); HEMOGLOBIN 10.9 g/dl (12.0-16.0); MEAN CORPUSCULAR HEMOGLOBIN 25.1 pg (29.0-33.0); MEAN CORPUSCULAR HGB CONC 30.4 g/dl (32.0-37.0); MEAN CORPUSCULAR VOLUME 82.5 fl (82.0-101.0); MEAN PLATELET VOLUME 11.3 fl (7.4-10.4); PLATELET COUNT 219 10^3/UL (140-415); RED BLOOD COUNT 4.34 10^6/ul (4.20-5.40); RED CELL DISTRIBUTION WIDTH 20.3 % (11.5-14.5); WHITE BLOOD COUNT 9.1 10^3/ul (4.8-10.8)
[2017-07-31 05:35] LABS: POSITIVE DIFF @See below
[2017-07-31 05:58] LABS: CALCIUM 7.2 mg/dl (8.4-10.2); CREATININE 0.64 mg/dl (0.44-1.00)
[2017-07-31 06:00] LABS: MAGNESIUM 1.8 mg/dl (1.7-2.5); PHOSPHORUS 3.2 mg/dl (2.5-4.9)
[2017-07-31] MEDS: metroNIDAZOLE 500 MG/NS (PMX) 100 ML IVPB SCH ×3 (06:00→22:04)
[2017-07-31] MEDS: SOD CHLORIDE 0.9% 1,000 ML IV SCH ×2 (06:01→17:10)
[2017-07-31 06:10] LABS: POTASSIUM 3.5 mmol/L (3.5-5.1)
[2017-07-31] MEDS: HYDROmorphONE 0.5 MG/0.5 ML SYG IV PRN (06:11)
[2017-07-31] MEDS: AMIODARONE 900 MG in DEXTROSE 5% 482 ML IV SCH ×2 (06:12→20:02)
--- NOTE | 2017-07-31 08:25 | PN ---
Date/Time of Note Date/Time of Note DATE: 07/31/17 TIME: 08:24 Assessment/Plan VTE Prophylaxis VTE Prophylaxis Intervention: SCD's Lines/Catheters IV Catheter Type (from Nrsg): Peripheral IV Urinary Cath still in place: Yes Reason Cath still needed: urinary retention Assessment/Plan Chief Complaint/Hosp Course s/p lap converted to open extended left hemicolectomy for actively bleeding colon cancer with symptomatic anemia admitted through the ER emergently Problems: Assessment/Plan dc ngt improve electrolytes with kcl and cagluc supplementation continue current medical care Subjective 24 Hr Interval Summary Free Text/Dictation HR rate stabilized, appropriate pain with managing pain control Exam/Review of Systems Vital Signs Vitals Vital Signs Date Time Temp Pulse Resp B/P Pulse Ox O2 Delivery O2 Flow Rate FiO2 07/31/17 06:00 86 18 127/74 99 Nasal Cannula 2.0 07/31/17 04:00 98.0 Intake and Output 07/30/17 07/30/17 07/31/17 15:00 23:00 07:00 Intake Total 1003.99 ml 1353.96 ml 1003.96 ml Output Total 500 ml 1135 ml 750 ml Balance 503.99 ml 218.96 ml 253.96 ml Exam c/d/i Results Result Diagram: 07/31/17 0452 07/31/17 0452 Results 24 hrs Laboratory Tests Test 07/31/17 04:52 White Blood Count 9.1 # Red Blood Count 4.34 Hemoglobin 10.9 L Hematocrit 35.8 L Mean Corpuscular Volume 82.5 Mean Corpuscular Hemoglobin 25.1 L Mean Corpuscular Hemoglobin Concent 30.4 L Red Cell Distribution Width 20.3 H Platelet Count 219 Mean Platelet Volume 11.3 H Neutrophils % Lymphocytes % Monocytes % Eosinophils % Basophils % Nucleated Red Blood Cells % 0.0 Neutrophils # Lymphocytes # Monocytes # Eosinophils # Basophils # Nucleated Red Blood Cells # Sodium Level 143 Potassium Level 3.5 Chloride Level 104 Carbon Dioxide Level 32 H Anion Gap 11 Blood Urea Nitrogen 18 Creatinine 0.64 Glucose Level 165 Calcium Level 7.2 L Phosphorus Level 3.2 Magnesium Level 1.8 Medications Medications Current Medications Loratadine (Claritin) 10 mg DAILY PO Last administered on 07/28/17t 09:44; Admin Dose 10 MG; Start 07/24/17 at 09:00 Acetaminophen (Tylenol Tab) 650 mg Q4H PRN PO pain/fever; Start 07/24/17 at 07 :00; Status Future Hold Diphenhydramine HCl (Benadryl) 25 mg Q6H PRN PO itch; Start 07/24/17 at 07:00 Famotidine 20 mg 20 mg BID IV Last administered on 07/30/17 20:52; Admin Dose 20 MG; Start 07/24/17 at 21:00 Sodium Chloride (NS) 1,000 ml @ 100 mls/hr Q10H IV Last administered on 06:01; Admin Dose 100 MLS/HR; Start 07/26/17 at 17:10 Naloxone HCl 0.2 mg 0.2 mg Q2M PRN IV RR 8 BREATHS/MIN OR LESS; Start at 18:00 Acetaminophen (Ofirmev 1000mg/ 100ml Iv) 100 ml @ 400 mls/hr Q6H IVPB Last administered on 07/31/17 06:00; Admin Dose 400 MLS/HR; Start 07/26/17 at 18:00 Naloxone HCl 0.2 mg 0.2 mg PRN PRN IV DECREASED REPIRATORY RATE; Start at 18:00 Ondansetron HCl 8 mg/Sodium Chloride 54 ml @ 216 mls/hr Q6H PRN IV NAUSEA AND/ OR VOMITING Last administered on 07/31/17 06:00; Admin Dose 216 MLS/HR; Start 07/27/17 at 13:00 Metronidazole 100 ml @ 100 mls/hr Q8 IVPB Last administered on 07/31/17 06:00 ; Admin Dose 100 MLS/HR; Start 07/28/17 at 22:00 Ciprofloxacin/ Dextrose (Cipro Ivpb) 200 ml @ 200 mls/hr Q12 IVPB Last administered on 07/30/17 20:51; Admin Dose 200 MLS/HR; Start 07/28/17 at 21: 00 Phenol (Chloraseptic Throat [place]) 2 spray Q2H PRN MT SORE THROAT Last administered on 07/29/17 18:10; Admin Dose 2 SPRAY; Start 07/29/17 at 13:00 Digoxin (Digoxin) 125 mcg DAILY@13 IV ; Start 07/30/17 at 13:00 Hydromorphone HCl (Dilaudid) 1 mg Q3H PRN IV PAIN LEVEL 6-10; Start 07/30/17 at 10:30 Hydromorphone HCl 0.5 mg 0.5 mg Q3H PRN IV PAIN LEVEL 1-5 Last administered on 07/31/17 06:11; Admin Dose 0.5 MG; Start 07/30/17 at 10:30 Amiodarone HCl 900 mg/Dextrose 500 ml @ 33.33 mls/ hr Q15H1M IV Last administered on 07/31/17 06:12; Admin Dose 16.66 MLS/HR; Start 07/30/17 at 14: 00 Potassium Chloride 250 ml @ 62.5 mls/hr ONCE ONCE IVPB ; Start 07/31/17 at 08: 30; Stop 07/31/17 at 12:29; Status UNV Calcium Gluconate/ Sodium Chloride (Ca Gluc/NS) 120 ml @ 60 mls/hr ONCE ONCE IVPB ; Start 07/31/17 at 08:30; Stop 07/31/17 at 10:29; Status UNV Hilario BOTELLO Jul 31, 2017 08:25
[2017-07-31] MEDS ORDERED: POTASSIUM CHLORIDE 250 ML IVPB ONE (08:30)
[2017-07-31] MEDS: LORATADINE 10 MG TAB PO SCH (09:00)
[2017-07-31] MEDS: FAMOTIDINE 20 MG INJ IV SCH ×2 (09:27→21:04)
[2017-07-31] MEDS: CIPROFLOXACIN 400MG/D5W 200 ML IVPB SCH ×2 (09:27→21:04)
--- NOTE | 2017-07-31 10:17 | RADRPT ---
Echocardiogram Report Patient Name: LAURI KYLE Gender: Female Date: 1965 Study Date: 30-Jul-2017 Tier In: [place]ne [facility] [place] Location: [id number] Ref. Physician: FERCHO MOJICA Quality: Adequate Procedures: Transthoracic echocardiogram with complete 2D, M-Mode, and doppler examination. Indications: Atrial Fibrillation. 2D/M Mode Doppler Measurement Value Normal Ranges Measurement Value Normal Ranges LVIDd 2D 4.7 3.5 - 5.6 cm AV Peak [place] 2.0 m/sec LVIDs 2D 3.2 2.1 - 4.1 cm AV Peak PG 16.0 mmHg FS 2D 30.5 % LVOT Peak [place] 1.5 m/sec LVPWd 2D 1.3 0.6 - 1.1 cm LVOT Peak PG 9.0 mmHg IVSd 2D 1.4 0.6 - 1.1 cm MV E Peak [place] 1.2 m/sec IVS/LVPW 2D 1.1 MV A Peak [place] 1.0 m/sec AoR Diam 2D 2.9 2.0 - 3.7 cm MV E/A 1.2 LA/Ao 2D 1 0 - 1 MV Decel Time 211 msec EDV 2D 101.0 cm3 MV E/A 1.2 ESV 2D 34.0 cm3 TR Peak [place] 2.7 m/sec LA Dimen 2D 3.7 2.3 - 4.0 cm TR Peak PG 30.0 mmHg RVSP 33.0 mmHg Findings Left Ventricle: Lower limits of normal systolic function. Normal left ventricular cavity size. Moderate concentric left ventricular hypertrophy. Ejection fraction is visually estimated at 50 %. Abnormal Diastolic Function. Right Ventricle: Normal right ventricular size. Normal right ventricular systolic function. Left Atrium: The left atrium is normal in size. Right Atrium: The right atrium is normal in size. Mitral Valve: Moderate mitral leaflet calcification. Mild mitral annular calcification. Trace mitral regurgitation. Aortic Valve: Aortic sclerosis without stenosis. Trace aortic valve regurgitation. Tricuspid Valve: Normal appearance of the tricuspid valve. Estimated peak PA systolic pressure 33 mmHg. There is mild tricuspid regurgitation. Pulmonic Valve: Normal pulmonic valve appearance. Pericardium: Normal pericardium with no significant pericardial effusion. Aorta: Normal aortic root. IVC: Normal size and normal respiratory collapse consistent with normal right atrial pressure. Conclusions Lower limits of normal systolic function. Normal left ventricular cavity size. Moderate concentric left ventricular hypertrophy. Ejection fraction is visually estimated at 50 %. Abnormal Diastolic Function. Normal right ventricular size. Normal right ventricular systolic function. The left atrium is normal in size. The right atrium is normal in size. Estimated peak PA systolic pressure 33 mmHg. There is mild tricuspid regurgitation. No significant valvular stenosis or regurgitation seen of remaining visualized valves. Normal pericardium with no significant pericardial effusion. Electronically Signed By: Fercho Mojica 31-Jul-2017 10:10:49 -0700 Patient Name: LAURI KYLE Study Date: 30-Jul-[id number]
[2017-07-31] MEDS ORDERED: CALCIUM GLUCONATE 10% 2 GM in SOD CHLORIDE 0.9% 100 ML IVPB SCH (10:30)
--- NOTE | 2017-07-31 11:15 | CONS ---
Date/Time of Note Date/Time of Note DATE: 07/31/17 TIME: 11:13 Assessment/Plan Assessment/Plan Additional Assessment/Plan Paroxysmal atrial fibrillation with rapid ventricular rates Low normal ejection fraction 50% Colon mass status post colon surgery July 26, 2017 SIRS History of CHF History of hypertension -Patient paroxysmal atrial fibrillation and currently back in atrial fibrillation with rapid ventricular rates. Continue IV amiodarone. Patient's nausea and vomiting is also an exacerbating factor for her rapid ventricular rates. Maintain potassium above 4.0 and magnesium above 2.0. Consultation Date/Type/Reason Admit Date/Time Jul 24, 2017 at 06:16 Initial Consult Date 07/29/17 Type of Consultation: cv 24 HR Interval Summary Free Text/Dictation Patient feeling better this morning, overnight multiple episodes of nausea and vomiting causing rapid ventricular rates, denies shortness of breath, chest pain at the current time, having intermittent palpitations Exam/Review of Systems Vital Signs Vitals Vital Signs Date Time Temp Pulse Resp B/P Pulse Ox O2 Delivery O2 Flow Rate FiO2 07/31/17 09:30 122 21 150/87 97 Nasal Cannula 2.0 07/31/17 08:00 99.2 Intake and Output 07/30/17 07/30/17 07/31/17 15:00 23:00 07:00 Intake Total 1003.99 ml 1353.96 ml 1103.96 ml Output Total 500 ml 1135 ml 750 ml Balance 503.99 ml 218.96 ml 353.96 ml Exam No apparent distress Constitutional: alert, oriented Respiratory: other (Coarse breath sounds bilaterally, no wheezing) Cardiovascular: irregular rhythm, other (S1-S2 heard) Gastrointestinal: bowel sounds, non-tender, soft Extremities: edema Results Result Diagram: 07/31/17 0452 07/31/17 0452 Results 24 hrs Laboratory Tests Test 07/31/17 04:52 White Blood Count 9.1 # Red Blood Count 4.34 Hemoglobin 10.9 L Hematocrit 35.8 L Mean Corpuscular Volume 82.5 Mean Corpuscular Hemoglobin 25.1 L Mean Corpuscular Hemoglobin Concent 30.4 L Red Cell Distribution Width 20.3 H Platelet Count 219 Mean Platelet Volume 11.3 H Neutrophils % Lymphocytes % Monocytes % Eosinophils % Basophils % Nucleated Red Blood Cells % 0.0 Neutrophils # Lymphocytes # Monocytes # Eosinophils # Basophils # Nucleated Red Blood Cells # Sodium Level 143 Potassium Level 3.5 Chloride Level 104 Carbon Dioxide Level 32 H Anion Gap 11 Blood Urea Nitrogen 18 Creatinine 0.64 Glucose Level 165 Calcium Level 7.2 L Phosphorus Level 3.2 Magnesium Level 1.8 Medications Medications Current Medications Loratadine (Claritin) 10 mg DAILY PO Last administered on 07/28/17 09:44; Admin Dose 10 MG; Start 07/24/17 at 09:00 Acetaminophen (Tylenol Tab) 650 mg Q4H PRN PO pain/fever; Start 07/24/17 at 07 :00; Status Future Hold Diphenhydramine HCl (Benadryl) 25 mg Q6H PRN PO itch; Start 07/24/17 at 07:00 Famotidine 20 mg 20 mg BID IV Last administered on 07/31/17 09:27; Admin Dose 20 MG; Start 07/24/17 at 21:00 Sodium Chloride (NS) 1,000 ml @ 100 mls/hr Q10H IV Last administered on 06:01; Admin Dose 100 MLS/HR; Start 07/26/17 at 17:10 Naloxone HCl 0.2 mg 0.2 mg Q2M PRN IV RR 8 BREATHS/MIN OR LESS; Start at 18:00 Acetaminophen (Ofirmev 1000mg/ 100ml Iv) 100 ml @ 400 mls/hr Q6H IVPB Last administered on 07/31/17 06:00; Admin Dose 400 MLS/HR; Start 07/26/17 at 18:00 Naloxone HCl 0.2 mg 0.2 mg PRN PRN IV DECREASED REPIRATORY RATE; Start at 18:00 Ondansetron HCl 8 mg/Sodium Chloride 54 ml @ 216 mls/hr Q6H PRN IV NAUSEA AND/ OR VOMITING Last administered on 07/31/17 06:00; Admin Dose 216 MLS/HR; Start 07/27/17 at 13:00 Metronidazole 100 ml @ 100 mls/hr Q8 IVPB Last administered on 07/31/17 06:00 ; Admin Dose 100 MLS/HR; Start 07/28/17 at 22:00 Ciprofloxacin/ Dextrose (Cipro Ivpb) 200 ml @ 200 mls/hr Q12 IVPB Last administered on 07/31/17 09:27; Admin Dose 200 MLS/HR; Start 07/28/17 at 21:00 Phenol (Chloraseptic Throat [place]) 2 spray Q2H PRN MT SORE THROAT Last administered on 07/29/17 18:10; Admin Dose 2 SPRAY; Start 07/29/17 at 13:00 Digoxin (Digoxin) 125 mcg DAILY@13 IV ; Start 07/30/17 at 13:00 Hydromorphone HCl (Dilaudid) 1 mg Q3H PRN IV PAIN LEVEL 6-10; Start 07/30/17 at 10:30 Hydromorphone HCl 0.5 mg 0.5 mg Q3H PRN IV PAIN LEVEL 1-5 Last administered on 07/31/17 06:11; Admin Dose 0.5 MG; Start 07/30/17 at 10:30 Amiodarone HCl 900 mg/Dextrose 500 ml @ 33.33 mls/ hr Q15H1M IV Last administered on 07/31/17 06:12; Admin Dose 16.66 MLS/HR; Start 07/30/17 at 14: 00 Potassium Chloride 250 ml @ 62.5 mls/hr ONCE ONCE IVPB Last administered on 07/31/17 09:27; Admin Dose 62.5 MLS/HR; Start 07/31/17 at 08:30; Stop 07/31/17 at 12:29 Calcium Gluconate/ Sodium Chloride (Ca Gluc/NS) 120 ml @ 60 mls/hr ONCE IVPB ; Start 07/31/17 at 10:30; Stop 07/31/17 at 12:29 Fercho Mojica DO Jul 31, 2017 11:15
[2017-07-31] MEDS ORDERED: DIPHENHYDRAMINE 50 MG INJ IV PRN (13:00)
[2017-07-31] MEDS ORDERED: MAGNESIUM SULFATE 3 GM in SOD CHLORIDE 0.9% 100 ML IVPB ONE (13:00)
[2017-07-31] MEDS: DIGOXIN 500 MCG INJ IV SCH (13:00)
--- NOTE | 2017-07-31 13:37 | PN ---
Date/Time of Note Date/Time of Note DATE: 07/31/17 TIME: 13:27 Assessment/Plan VTE Prophylaxis VTE Prophylaxis Intervention: SCD's Lines/Catheters IV Catheter Type (from Nrs): Peripheral IV Urinary Cath still in place: Yes Reason Cath still needed: urinary retention Assessment/Plan Assessment/Plan 51 year old female with: 1. Atrial fibrillation, chronic, patient back in sinus rhythm, patient done with amiodarone drip, on digoxin IV, appreciate cardiology recommendations. Overnight events noted, appreciate assistance from cardiology Dr. Mojica, patient back on amiodarone drip, check digoxin level in a.m., continue IV digoxin. Transfer back to telemetry when okay with cardiology. Resume anticoagulation when okay with general surgery, Dr. Aldana. Replete potassium, check magnesium and replete as needed. 2. Status post Left hemicolectomy for sigmoid adenocarcinoma/mass POD#5, s/p total of 4 units pRBC since admission. Dr. Aldana following, appreciate recommendations. Patient with postop ileus, NG tube removed today per general surgery, patient still strict n.p.o. All medications converted to IV for now. NPO, IV fluids PT, encourage ambulation. On Dilaudid IV as needed for pain control 3. ? Chronic congestive heart failure, chronic diastolic dysfunction and ejection fraction of 55% on latest outpatient echocardiogram in January 2017 and confirmed to be 50% on this admission Still holding off diuretics Monitor volume status. On gentle IV fluids while n.p.o. 4. Hypertension, antihypertensive resumed with holding parameters. 5. Hyperlipidemia: Resume home medications when able to take p.o. Prophylaxis: SCDs to lower extremity for DVT prophylaxis, Pepcid for GI prophylaxis. Resume anticoagulation for stroke prophylaxis when okay with general surgery Disposition: Heart rate and rhythm control, on amiodarone. Subjective 24 Hr Interval Summary Free Text/Dictation NG tube removed this a.m., patient still strict n.p.o. as of today. To remain in the intensive care unit per cardiology due to arrhythmias and difficult heart rate control especially while strict n.p.o. Exam/Review of Systems Vital Signs Vitals Vital Signs Date Time Temp Pulse Resp B/P Pulse Ox O2 Delivery O2 Flow Rate FiO2 07/31/17 09:30 122 21 150/87 97 Nasal Cannula 2.0 07/31/17 08:00 99.2 Intake and Output 07/30/17 07/30/17 07/31/17 15:00 23:00 07:00 Intake Total 1003.99 ml 1353.96 ml 1103.96 ml Output Total 500 ml 1135 ml 750 ml Balance 503.99 ml 218.96 ml 353.96 ml Exam Constitutional: alert, obese, oriented, well developed Respiratory: clear to auscultation, normal air movement Cardiovascular: nl pulses, other (Currently sinus rhythm), regular rate and rhythm Gastrointestinal: non-tender, soft Musculoskeletal: nl extremities to inspection Extremities: normal pulses, other Neurological: [employer] II-XII intact, nl mental status, nl speech, nl strength Results Result Diagram: 07/31/1745107/31/17 045 Results 24 hrs Laboratory Tests Test 07/31/17 04:52 White Blood Count 9.1 # Red Blood Count 4.34 Hemoglobin 10.9 L Hematocrit 35.8 L Mean Corpuscular Volume 82.5 Mean Corpuscular Hemoglobin 25.1 L Mean Corpuscular Hemoglobin Concent 30.4 L Red Cell Distribution Width 20.3 H Platelet Count 219 Mean Platelet Volume 11.3 H Neutrophils % Lymphocytes % Monocytes % Eosinophils % Basophils % Nucleated Red Blood Cells % 0.0 Neutrophils # Lymphocytes # Monocytes # Eosinophils # Basophils # Nucleated Red Blood Cells # Sodium Level 143 Potassium Level 3.5 Chloride Level 104 Carbon Dioxide Level 32 H Anion Gap 11 Blood Urea Nitrogen 18 Creatinine 0.64 Glucose Level 165 Calcium Level 7.2 L Phosphorus Level 3.2 Magnesium Level 1.8 Medications Medications Current Medications Loratadine (Claritin) 10 mg DAILY PO Last administered on 07/28/17 09:44; Admin Dose 10 MG; Start 07/24/17 at 09:00 Acetaminophen (Tylenol Tab) 650 mg Q4H PRN PO pain/fever; Start 07/24/17 at 07 :00; Status Future Hold Famotidine 20 mg 20 mg BID IV Last administered on 07/31/17 09:27; Admin Dose 20 MG; Start 07/24/17 at 21:00 Sodium Chloride (NS) 1,000 ml @ 100 mls/hr Q10H IV Last administered on 06:01; Admin Dose 100 MLS/HR; Start 07/26/17 at 17:10 Naloxone HCl 0.2 mg 0.2 mg Q2M PRN IV RR 8 BREATHS/MIN OR LESS; Start at 18:00 Acetaminophen (Ofirmev 1000mg/ 100ml Iv) 100 ml @ 400 mls/hr Q6H IVPB Last administered on 07/31/17 12:56; Admin Dose 400 MLS/HR; Start 07/26/17 at 18:00 Naloxone HCl 0.2 mg 0.2 mg PRN PRN IV DECREASED REPIRATORY RATE; Start at 18:00 Ondansetron HCl 8 mg/Sodium Chloride 54 ml @ 216 mls/hr Q6H PRN IV NAUSEA AND/ OR VOMITING Last administered on 07/31/17 12:48; Admin Dose 216 MLS/HR; Start 07/27/17 at 13:00 Metronidazole 100 ml @ 100 mls/hr Q8 IVPB Last administered on 07/31/17 06:00 ; Admin Dose 100 MLS/HR; Start 07/28/17 at 22:00 Ciprofloxacin/ Dextrose (Cipro Ivpb) 200 ml @ 200 mls/hr Q12 IVPB Last administered on 07/31/17 09:27; Admin Dose 200 MLS/HR; Start 07/28/17 at 21:00 Phenol (Chloraseptic Throat [place]) 2 spray Q2H PRN MT SORE THROAT Last administered on 07/29/17 18:10; Admin Dose 2 SPRAY; Start 07/29/17 at 13:00 Digoxin (Digoxin) 125 mcg DAILY@13 IV ; Start 07/30/17 at 13:00 Hydromorphone HCl (Dilaudid) 1 mg Q3H PRN IV PAIN LEVEL 6-10; Start 07/30/17 at 10:30 Hydromorphone HCl 0.5 mg 0.5 mg Q3H PRN IV PAIN LEVEL 1-5 Last administered on 07/31/17 06:11; Admin Dose 0.5 MG; Start 07/30/17 at 10:30 Amiodarone HCl 900 mg/Dextrose 500 ml @ 33.33 mls/ hr Q15H1M IV Last administered on 07/31/17 06:12; Admin Dose 16.66 MLS/HR; Start 07/30/17 at 14: 00 Magnesium Sulfate/ Sodium Chloride (Magnesium Sulfate/NS) 106 ml @ 35.333 mls/ hr ONCE ONCE IVPB ; Start 07/31/17 at 13:00; Stop 07/31/17 at 15:59 Diphenhydramine HCl (Benadryl) 25 mg Q6H PRN IV SLEEP; Start 07/31/17 at 13:00 RAE CALVO Jul 31, 2017 13:37
[2017-08-01] VITALS (38 sets, daily range): BP systolic 139–163; BP diastolic 64–99; PULSE 74–85; RESP 21–35
[2017-08-01] MEDS: ACETAMINOPHEN 1000MG/100ML IV 100 ML IVPB SCH ×4 (00:10→17:50)
[2017-08-01] MEDS: 1/2 NS + KCL 20 MEQ 1,000 ML IV SCH ×3 (00:20→10:27)
[2017-08-01 05:10] LABS: ABNORMAL IP MESSAGE 1; HEMATOCRIT 37.6 % (37.0-47.0); HEMOGLOBIN 11.5 g/dl (12.0-16.0); MEAN CORPUSCULAR HEMOGLOBIN 24.9 pg (29.0-33.0); MEAN CORPUSCULAR HGB CONC 30.6 g/dl (32.0-37.0); MEAN CORPUSCULAR VOLUME 81.4 fl (82.0-101.0); MEAN PLATELET VOLUME 11.3 fl (7.4-10.4); PLATELET COUNT 236 10^3/UL (140-415); RED BLOOD COUNT 4.62 10^6/ul (4.20-5.40); RED CELL DISTRIBUTION WIDTH 20.7 % (11.5-14.5); WHITE BLOOD COUNT 10.5 10^3/ul (4.8-10.8)
[2017-08-01 05:21] LABS: MAGNESIUM 2.1 mg/dl (1.7-2.5); PHOSPHORUS 2.8 mg/dl (2.5-4.9)
[2017-08-01] MEDS: ONDANSETRON INJ 8 MG in SOD CHLORIDE 0.9% 50 ML IV PRN ×2 (05:21→17:10)
[2017-08-01 05:26] LABS: ALBUMIN 2.7 g/dl (3.3-4.9); ALBUMIN/GLOBULIN RATIO 0.87; BILIRUBIN,INDIRECT 0.7 mg/dl (0-1.1); BILIRUBIN,TOTAL 0.7 mg/dl (0.2-1.3); CALCIUM 8.1 mg/dl (8.4-10.2); CREATININE 0.62 mg/dl (0.44-1.00); POTASSIUM 3.8 mmol/L (3.5-5.1); TOTAL PROTEIN 5.8 g/dl (6.1-8.1)
[2017-08-01 05:32] LABS: POSITIVE DIFF @See below
[2017-08-01 06:19] LABS: LYMPHOCYTES # 1.6 10^3/ul (0.8-2.9); MONOCYTE # 0.6 10^3/ul (0.3-0.9); MONOCYTES % (M) 6 % (0-11)
[2017-08-01 06:20] LABS: ANISOCYTOSIS FEW (0-0); OVALOCYTES FEW (0-0)
[2017-08-01] MEDS: FAMOTIDINE 20 MG INJ IV SCH ×2 (08:22→21:56)
[2017-08-01] MEDS: LORATADINE 10 MG TAB PO SCH (08:23)
--- NOTE | 2017-08-01 09:53 | PN ---
Date/Time of Note Date/Time of Note DATE: 08/01/17 TIME: 09:50 Assessment/Plan VTE Prophylaxis VTE Prophylaxis Intervention: SCD's Lines/Catheters IV Catheter Type (from Nrsg): Peripheral IV Urinary Cath still in place: Yes Reason Cath still needed: urinary retention Assessment/Plan Chief Complaint/Hosp Course s/p lap converted to open extended left hemicolectomy for actively bleeding colon cancer with symptomatic anemia admitted through the ER emergently Problems: Assessment/Plan had several episodes of afib with rvr now improving -pt ambulating -will start clears -ok to transfer to tele when ok with all medical teams Subjective 24 Hr Interval Summary Free Text/Dictation no nausea or vomiting, passing flatus Exam/Review of Systems Vital Signs Vitals Vital Signs Date Time Temp Pulse Resp B/P Pulse Ox O2 Delivery O2 Flow Rate FiO2 08/01/17 08:30 98.3 74 26 139/83 98 Nasal Cannula 08/01/17 08:00 2.0 Intake and Output 07/31/17 07/31/17 08/01/17 15:00 23:00 07:00 Intake Total 1237.30 ml 802.26 ml 487.28 ml Output Total 345 ml 274 ml 250 ml Balance 892.30 ml 528.26 ml 237.28 ml Exam c/d/i Results Result Diagram: 08/01/17 0434 08/01/17 0434 Results 24 hrs Laboratory Tests Test 08/01/17 04:34 White Blood Count 10.5 Red Blood Count 4.62 Hemoglobin 11.5 L Hematocrit 37.6 Mean Corpuscular Volume 81.4 L Mean Corpuscular Hemoglobin 24.9 L Mean Corpuscular Hemoglobin Concent 30.6 L Red Cell Distribution Width 20.7 H Platelet Count 236 Mean Platelet Volume 11.3 H Neutrophils % Segmented Neutrophils % (Manual) 79 H Lymphocytes % Lymphocytes % (Manual) 15 Monocytes % Monocytes % (Manual) 6 Eosinophils % Basophils % Nucleated Red Blood Cells % 0.0 Neutrophils # Absolute Lymphocytes (Manual) 1.5 Lymphocytes # 1.6 Monocytes # 0.6 Absolute Monocytes (Manual) 0.6 Eosinophils # Basophils # Nucleated Red Blood Cells # Anisocytosis FEW Ovalocytes FEW Sodium Level 143 Potassium Level 3.8 Chloride Level 103 Carbon Dioxide Level 31 Anion Gap 13 Blood Urea Nitrogen 17 Creatinine 0.62 Glucose Level 144 Calcium Level 8.1 L Phosphorus Level 2.8 Magnesium Level 2.1 Total Bilirubin 0.7 Direct Bilirubin 0.00 Indirect Bilirubin 0.7 Aspartate Amino Transf (AST/SGOT) 15 Alanine Aminotransferase (ALT/SGPT) 20 Alkaline Phosphatase 105 # Total Protein 5.8 L Albumin 2.7 L Globulin 3.10 Albumin/Globulin Ratio 0.87 Medications Medications Current Medications Loratadine (Claritin) 10 mg DAILY PO Last administered on 07/28/17 09:44; Admin Dose 10 MG; Start 07/24/17 at 09:00 Acetaminophen (Tylenol Tab) 650 mg Q4H PRN PO pain/fever; Start 07/24/17 at 07 :00; Status Future Hold Famotidine (Pepcid Iv) 20 mg BID IV Last administered on 08/01/17 08:22; Admin Dose 20 MG; Start 07/24/17 at 21:00 Naloxone HCl 0.2 mg 0.2 mg Q2M PRN IV RR 8 BREATHS/MIN OR LESS; Start at 18:00 Acetaminophen (Ofirmev 1000mg/ 100ml Iv) 100 ml @ 400 mls/hr Q6H IVPB Last administered on 08/01/17 05:43; Admin Dose 400 MLS/HR; Start 07/26/17 at 18:00 Naloxone HCl 0.2 mg 0.2 mg PRN PRN IV DECREASED REPIRATORY RATE; Start at 18:00 Ondansetron HCl/ Sodium Chloride (Zofran Inj/NS) 54 ml @ 216 mls/hr Q6H PRN IV NAUSEA AND/OR VOMITING Last administered on 08/01/17 05:21; Admin Dose 216 MLS/HR; Start 07/27/17 at 13:00 Phenol (Chloraseptic Throat [place]) 2 spray Q2H PRN MT SORE THROAT Last administered on 07/29/17 18:10; Admin Dose 2 SPRAY; Start 07/29/17 at 13:00 Digoxin (Digoxin) 125 mcg DAILY@13 IV ; Start 07/30/17 at 13:00 Hydromorphone HCl (Dilaudid) 1 mg Q3H PRN IV PAIN LEVEL 6-10; Start 07/30/17 at 10:30 Hydromorphone HCl 0.5 mg 0.5 mg Q3H PRN IV PAIN LEVEL 1-5 Last administered on 07/31/17 06:11; Admin Dose 0.5 MG; Start 07/30/17 at 10:30 Amiodarone HCl/ Dextrose (Cordarone Iv/ D5W) 500 ml @ 33.33 mls/ hr Q15H1M IV Last administered on 07/31/17 06:12; Admin Dose 16.66 MLS/HR; Start 07/30/17 at 14:00 Diphenhydramine HCl 25 mg 25 mg Q6H PRN IV SLEEP Last administered on 00:19; Admin Dose 25 MG; Start 07/31/17 at 13:00 Potassium Chloride/Sodium Chloride (/2 NS + KCl 20 Meq) 1,000 ml @ 100 mls/hr Q10H IV Last administered on 08/01/17 00:20; Admin Dose 100 MLS/HR; Start 07/31/17 at 23:00 Hilario BOTELLO Aug 01, 2017 09:53
[2017-08-01] MEDS ORDERED: POTASSIUM CHLORIDE (SR) 20 MEQ TAB PO STA (10:31)
--- NOTE | 2017-08-01 10:32 | PN ---
Date/Time of Note Date/Time of Note DATE: 08/01/17 TIME: 10:32 Assessment/Plan VTE Prophylaxis VTE Prophylaxis Intervention: SCD's Lines/Catheters IV Catheter Type (from Nrsg): Peripheral IV Urinary Cath still in place: Yes Reason Cath still needed: urinary retention Assessment/Plan Assessment/Plan 51 year old female with: 1. Atrial fibrillation, chronic, patient back in sinus rhythm, Patient on amiodarone drip while not tolerating p.o. well yet, also on digoxin IV, appreciate cardiology recommendations. Transfer back to telemetry when okay with cardiology. Resume anticoagulation when okay with general surgery, Dr. Aldana. Replete potassium, check magnesium and replete as needed. 2. Status post Left hemicolectomy for sigmoid adenocarcinoma/mass POD#5, s/p total of 4 units pRBC since admission. Dr. Aldana following, appreciate recommendations, starting clears today, NG tube was discontinued yesterday. Will decrease IV fluids rate Continue physical therapy and encouraging ambulation. On Dilaudid IV as needed for pain control, also on IV Tylenol [id number] for now. 3. ? Chronic congestive heart failure, chronic diastolic dysfunction and ejection fraction of 55% on latest outpatient echocardiogram in January 2017 and confirmed to be 50% on this admission Still holding off diuretics, decrease IV fluids rate. Monitor volume status. 4. Hypertension, antihypertensive resumed with holding parameters. 5. Hyperlipidemia: Resume home medications when able to take p.o. Prophylaxis: SCDs to lower extremity for DVT prophylaxis, Pepcid for GI prophylaxis. Resume anticoagulation (Xarelto) for stroke prophylaxis when okay with general surgery Disposition: Heart rate and rhythm control, on amiodarone drip, transfer to telemetry today if okay with cardiology. Subjective 24 Hr Interval Summary Free Text/Dictation Patient with some nausea, under control, started on clear liquids today per general surgery. WBC within normal, ambulating in hallway with physical therapy. Remains in sinus rhythm, on amiodarone drip. Patient to be transferred to telemetry today if okay with cardiology. Patient still on IV Tylenol [id number], not asking for any additional pain medication so far. Exam/Review of Systems Vital Signs Vitals Vital Signs Date Time Temp Pulse Resp B/P Pulse Ox O2 Delivery O2 Flow Rate FiO2 08/01/17 08:30 98.3 74 26 139/83 98 Nasal Cannula 08/01/17 08:00 2.0 Intake and Output 07/31/17 07/31/17 08/01/17 15:00 23:00 07:00 Intake Total 1237.30 ml 802.26 ml 487.28 ml Output Total 345 ml 274 ml 250 ml Balance 892.30 ml 528.26 ml 237.28 ml Exam Constitutional: alert, obese, oriented, well developed Respiratory: diminished breath sounds (Bases bilaterally), normal air movement , other (On 2 L nasal cannula) Cardiovascular: nl pulses, other (Back in sinus rhythm), regular rate and rhythm Gastrointestinal: soft, tender (Mild, diffuse, abdominal binder in place, no drains) Musculoskeletal: nl extremities to inspection Extremities: normal pulses, other (No edema, clubbing or cyanosis) Results Result Diagram: 08/01/17 0434 08/01/17 0434 Results 24 hrs Laboratory Tests Test 08/01/17 04:34 White Blood Count 10.5 Red Blood Count 4.62 Hemoglobin 11.5 L Hematocrit 37.6 Mean Corpuscular Volume 81.4 L Mean Corpuscular Hemoglobin 24.9 L Mean Corpuscular Hemoglobin Concent 30.6 L Red Cell Distribution Width 20.7 H Platelet Count 236 Mean Platelet Volume 11.3 H Neutrophils % Segmented Neutrophils % (Manual) 79 H Lymphocytes % Lymphocytes % (Manual) 15 Monocytes % Monocytes % (Manual) 6 Eosinophils % Basophils % Nucleated Red Blood Cells % 0.0 Neutrophils # Absolute Lymphocytes (Manual) 1.5 Lymphocytes # 1.6 Monocytes # 0.6 Absolute Monocytes (Manual) 0.6 Eosinophils # Basophils # Nucleated Red Blood Cells # Anisocytosis FEW Ovalocytes FEW Sodium Level 143 Potassium Level 3.8 Chloride Level 103 Carbon Dioxide Level 31 Anion Gap 13 Blood Urea Nitrogen 17 Creatinine 0.62 Glucose Level 144 Calcium Level 8.1 L Phosphorus Level 2.8 Magnesium Level 2.1 Total Bilirubin 0.7 Direct Bilirubin 0.00 Indirect Bilirubin 0.7 Aspartate Amino Transf (AST/SGOT) 15 Alanine Aminotransferase (ALT/SGPT) 20 Alkaline Phosphatase 105 # Total Protein 5.8 L Albumin 2.7 L Globulin 3.10 Albumin/Globulin Ratio 0.87 Medications Medications Current Medications Loratadine (Claritin) 10 mg DAILY PO Last administered on 07/28/17 09:44; Admin Dose 10 MG; Start 07/24/17 at 09:00 Acetaminophen (Tylenol Tab) 650 mg Q4H PRN PO pain/fever; Start 07/24/17 at 07 :00; Status Future Hold Famotidine (Pepcid Iv) 20 mg BID IV Last administered on 08/01/17 08:22; Admin Dose 20 MG; Start 07/24/17 at 21:00 Naloxone HCl 0.2 mg 0.2 mg Q2M PRN IV RR 8 BREATHS/MIN OR LESS; Start at 18:00 Acetaminophen (Ofirmev 1000mg/ 100ml Iv) 100 ml @ 400 mls/hr Q6H IVPB Last administered on 08/01/17 05:43; Admin Dose 400 MLS/HR; Start 07/26/17 at 18:00 Naloxone HCl 0.2 mg 0.2 mg PRN PRN IV DECREASED REPIRATORY RATE; Start at 18:00 Ondansetron HCl/ Sodium Chloride (Zofran Inj/NS) 54 ml @ 216 mls/hr Q6H PRN IV NAUSEA AND/OR VOMITING Last administered on 08/01/17 05:21; Admin Dose 216 MLS/HR; Start 07/27/17 at 13:00 Phenol (Chloraseptic Throat [place]) 2 spray Q2H PRN MT SORE THROAT Last administered on 07/29/17 18:10; Admin Dose 2 SPRAY; Start 07/29/17 at 13:00 Digoxin (Digoxin) 125 mcg DAILY@13 IV ; Start 07/30/17 at 13:00 Hydromorphone HCl (Dilaudid) 1 mg Q3H PRN IV PAIN LEVEL 6-10; Start 07/30/17 at 10:30 Hydromorphone HCl 0.5 mg 0.5 mg Q3H PRN IV PAIN LEVEL 1-5 Last administered on 07/31/17 06:11; Admin Dose 0.5 MG; Start 07/30/17 at 10:30 Amiodarone HCl/ Dextrose (Cordarone Iv/ D5W) 500 ml @ 33.33 mls/ hr Q15H1M IV Last administered on 07/31/17 06:12; Admin Dose 16.66 MLS/HR; Start 07/30/17 at 14:00 Diphenhydramine HCl 25 mg 25 mg Q6H PRN IV SLEEP Last administered on 00:19; Admin Dose 25 MG; Start 07/31/17 at 13:00 Potassium Chloride/Sodium Chloride (10/01 NS + KCl 20 Meq) 1,000 ml @ 100 mls/hr Q10H IV Last administered on 08/01/17 10:27; Admin Dose 100 MLS/HR; Start 07/31/17 at 23:00 RAE CALVO Aug 01, 2017 10:32
[2017-08-01] MEDS: AMIODARONE 900 MG in DEXTROSE 5% 482 ML IV SCH ×2 (11:03→14:31)
[2017-08-01] MEDS: DIGOXIN 500 MCG INJ IV SCH (13:10)
--- NOTE | 2017-08-01 16:29 | CONS ---
Date/Time of Note Date/Time of Note DATE: 08/01/17 TIME: 16:26 Assessment/Plan Assessment/Plan Additional Assessment/Plan Paroxysmal atrial fibrillation with rapid ventricular rates, currently sinus Low normal ejection fraction 50% Colon mass status post colon surgery July 26, 2017 SIRS History of CHF History of hypertension -Patient paroxysmal atrial fibrillation and currently back in sinus. Continue IV amiodarone and transition to po. Maintain potassium above 4.0 and magnesium above 2.0. Consultation Date/Type/Reason Admit Date/Time Jul 24, 2017 at 06:16 Initial Consult Date 07/29/17 Type of Consultation: cv 24 HR Interval Summary Free Text/Dictation Patient denies shortness of breath, chest pain or palpitations. Overall feeling better Exam/Review of Systems Vital Signs Vitals Vital Signs Date Time Temp Pulse Resp B/P Pulse Ox O2 Delivery O2 Flow Rate FiO2 08/01/17 15:30 78 31 160/96 98 Nasal Cannula 2.0 08/01/17 11:26 98.9 Intake and Output 07/31/17 07/31/17 08/01/17 15:00 23:00 07:00 Intake Total 1237.30 ml 802.26 ml 487.28 ml Output Total 345 ml 274 ml 250 ml Balance 892.30 ml 528.26 ml 237.28 ml Exam No apparent distress Constitutional: alert, oriented Head: normocephalic Respiratory: other (Coarse breath sounds bilaterally, no wheezing) Cardiovascular: other (s1s2), regular rate and rhythm Gastrointestinal: bowel sounds, soft Extremities: edema Results Result Diagram: 08/01/17 0434 08/01/17 0434 Results 24 hrs Laboratory Tests Test 08/01/17 04:34 White Blood Count 10.5 Red Blood Count 4.62 Hemoglobin 11.5 L Hematocrit 37.6 Mean Corpuscular Volume 81.4 L Mean Corpuscular Hemoglobin 24.9 L Mean Corpuscular Hemoglobin Concent 30.6 L Red Cell Distribution Width 20.7 H Platelet Count 236 Mean Platelet Volume 11.3 H Neutrophils % Segmented Neutrophils % (Manual) 79 H Lymphocytes % Lymphocytes % (Manual) 15 Monocytes % Monocytes % (Manual) 6 Eosinophils % Basophils % Nucleated Red Blood Cells % 0.0 Neutrophils # Absolute Lymphocytes (Manual) 1.5 Lymphocytes # 1.6 Monocytes # 0.6 Absolute Monocytes (Manual) 0.6 Eosinophils # Basophils # Nucleated Red Blood Cells # Anisocytosis FEW Ovalocytes FEW Sodium Level 143 Potassium Level 3.8 Chloride Level 103 Carbon Dioxide Level 31 Anion Gap 13 Blood Urea Nitrogen 17 Creatinine 0.62 Glucose Level 144 Calcium Level 8.1 L Phosphorus Level 2.8 Magnesium Level 2.1 Total Bilirubin 0.7 Direct Bilirubin 0.00 Indirect Bilirubin 0.7 Aspartate Amino Transf (AST/SGOT) 15 Alanine Aminotransferase (ALT/SGPT) 20 Alkaline Phosphatase 105 # Total Protein 5.8 L Albumin 2.7 L Globulin 3.10 Albumin/Globulin Ratio 0.87 Medications Medications Current Medications Loratadine (Claritin) 10 mg DAILY PO Last administered on 07/28/17 09:44; Admin Dose 10 MG; Start 07/24/17 at 09:00 Acetaminophen (Tylenol Tab) 650 mg Q4H PRN PO pain/fever; Start 07/24/17 at 07 :00; Status Future Hold Famotidine 20 mg 20 mg BID IV Last administered on 08/01/17 08:22; Admin Dose 20 MG; Start 07/24/17 at 21:00 Acetaminophen 100 ml @ 400 mls/hr Q6H IVPB Last administered on 08/01/17 11: 22; Admin Dose 400 MLS/HR; Start 07/26/17 at 18:00 Ondansetron HCl/ Sodium Chloride (Zofran Inj/NS) 54 ml @ 216 mls/hr Q6H PRN IV NAUSEA AND/OR VOMITING Last administered on 08/01/17 05:21; Admin Dose 216 MLS/HR; Start 07/27/17 at 13:00 Phenol (Chloraseptic Throat [place]) 2 spray Q2H PRN MT SORE THROAT Last administered on 07/29/17 18:10; Admin Dose 2 SPRAY; Start 07/29/17 at 13:00 Digoxin (Digoxin) 125 mcg DAILY@13 IV Last administered on 08/01/17 13:10; Admin Dose 125 MCG; Start 07/30/17 at 13:00 Hydromorphone HCl (Dilaudid) 1 mg Q3H PRN IV PAIN LEVEL 6-10; Start 07/30/17 at 10:30 Hydromorphone HCl 0.5 mg 0.5 mg Q3H PRN IV PAIN LEVEL 1-5 Last administered on 07/31/17 06:11; Admin Dose 0.5 MG; Start 07/30/17 at 10:30 Amiodarone HCl/ Dextrose (Cordarone Iv/ D5W) 500 ml @ 33.33 mls/ hr Q15H1M IV Last administered on 08/01/17 14:31; Admin Dose 16.66 MLS/HR; Start 07/30/17 at 14:00 Diphenhydramine HCl 25 mg 25 mg Q6H PRN IV SLEEP Last administered on 00:19; Admin Dose 25 MG; Start 07/31/17 at 13:00 Potassium Chloride/Sodium Chloride (10/01 NS + KCl 20 Meq) 1,000 ml @ 75 mls/hr [id number] IV Last administered on 08/01/17 10:27; Admin Dose 100 MLS/HR; Start 07/31/17 at 23:00 Fercho Mojica DO Aug 01, 2017 16:29
[2017-08-02] VITALS (12 sets, daily range): BP systolic 130–150; BP diastolic 60–91; PULSE 79–110; RESP 16–22
[2017-08-02] MEDS ORDERED: HYDROmorphONE 1 MG/ML SYG IV PRN (01:22)
[2017-08-02] MEDS: ACETAMINOPHEN 1000MG/100ML IV 100 ML IVPB SCH ×5 (01:26→23:21)
[2017-08-02] MEDS: morphine 2 MG INJ IV PRN ×2 (01:42→06:39)
[2017-08-02] MEDS: ONDANSETRON INJ 8 MG in SOD CHLORIDE 0.9% 50 ML IV PRN ×4 (01:46→19:34)
[2017-08-02] MEDS: AMIODARONE 900 MG in DEXTROSE 5% 482 ML IV SCH ×3 (02:04→23:22)
[2017-08-02 06:25] LABS: ABNORMAL IP MESSAGE 1; BASOPHIL # 0.1 10^3/ul (0.0-0.1); BASOPHILS % 0.7 % (0.0-2.0); EOSINOPHILS % 0.1 % (0.0-7.0); HEMATOCRIT 41.1 % (37.0-47.0); HEMOGLOBIN 12.7 g/dl (12.0-16.0); LYMPHOCYTES # 1.1 10^3/ul (0.8-2.9); LYMPHOCYTES % 10.6 % (15.0-51.0); MEAN CORPUSCULAR HEMOGLOBIN 24.5 pg (29.0-33.0); MEAN CORPUSCULAR HGB CONC 30.9 g/dl (32.0-37.0); MEAN CORPUSCULAR VOLUME 79.2 fl (82.0-101.0); MEAN PLATELET VOLUME 11.2 fl (7.4-10.4); MONOCYTE # 0.2 10^3/ul (0.3-0.9); MONOCYTES % 2.2 % (0.0-11.0); NEUTROPHIL # 9.1 10^3/ul (1.6-7.5); NEUTROPHILS % 84.6 % (39.0-77.0); PLATELET COUNT 318 10^3/UL (140-415); RED BLOOD COUNT 5.19 10^6/ul (4.20-5.40); RED CELL DISTRIBUTION WIDTH 21.8 % (11.5-14.5); WHITE BLOOD COUNT 10.7 10^3/ul (4.8-10.8)
[2017-08-02 06:41] LABS: POSITIVE DIFF @See below
[2017-08-02] MEDS: CHLORPROMAZINE 50 MG INJ IM PRN ×2 (06:54→13:47)
[2017-08-02 07:12] LABS: CREATININE 0.56 mg/dl (0.44-1.00); POTASSIUM 4.2 mmol/L (3.5-5.1)
[2017-08-02] MEDS: 1/2 NS + KCL 20 MEQ 1,000 ML IV SCH (08:01)
[2017-08-02 08:22] LABS: MAGNESIUM 1.8 mg/dl (1.7-2.5); PHOSPHORUS 3.7 mg/dl (2.5-4.9)
[2017-08-02] MEDS: FAMOTIDINE 20 MG INJ IV SCH ×2 (08:55→20:52)
[2017-08-02] MEDS: LORATADINE 10 MG TAB PO SCH (08:56)
--- NOTE | 2017-08-02 09:56 | PN ---
Date/Time of Note Date/Time of Note DATE: 08/02/17 TIME: 09:55 Assessment/Plan VTE Prophylaxis VTE Prophylaxis Intervention: SCD's Lines/Catheters IV Catheter Type (from Nrsg): Peripheral IV Urinary Cath still in place: Yes Reason Cath still needed: urinary retention Assessment/Plan Chief Complaint/Hosp Course s/p lap converted to open extended left hemicolectomy for actively bleeding colon cancer with symptomatic anemia admitted through the ER emergently Problems: Assessment/Plan had some emesis bilious this morning also patient appears sensitive to pain medication which was nausea will make npo x meds for now cont current care Subjective 24 Hr Interval Summary Free Text/Dictation still some nausea and bilous vomiting Exam/Review of Systems Vital Signs Vitals Vital Signs Date Time Temp Pulse Resp B/P Pulse Ox O2 Delivery O2 Flow Rate FiO2 08/02/17 08:12 94 08/02/17 07:46 98.4 16 130/60 97 08/01/17 23:39 Nasal Cannula 2.0 Intake and Output 08/01/17 08/01/17 08/02/17 14:59 22:59 06:59 Intake Total 1173.28 ml 274.98 ml 504 ml Output Total 245 ml 90 ml 600 ml Balance 928.28 ml 184.98 ml -96 ml Exam dry and intact Results Result Diagram: 08/02/17 0551 08/02/17 0551 Results 24 hrs Laboratory Tests Test 08/02/17 05:51 White Blood Count 10.7 Red Blood Count 5.19 Hemoglobin 12.7 Hematocrit 41.1 Mean Corpuscular Volume 79.2 L Mean Corpuscular Hemoglobin 24.5 L Mean Corpuscular Hemoglobin Concent 30.9 L Red Cell Distribution Width 21.8 H Platelet Count 318 # Mean Platelet Volume 11.2 H Neutrophils % 84.6 H Lymphocytes % 10.6 L Monocytes % 2.2 Eosinophils % 0.1 Basophils % 0.7 Nucleated Red Blood Cells % 0.0 Neutrophils # 9.1 H Lymphocytes # 1.1 Monocytes # 0.2 L Eosinophils # 0.0 Basophils # 0.1 Nucleated Red Blood Cells # 0.0 Sodium Level 138 Potassium Level 4.2 Chloride Level 99 Carbon Dioxide Level 31 Anion Gap 12 Blood Urea Nitrogen 15 Creatinine 0.56 Glucose Level 142 Calcium Level 8.0 L Phosphorus Level 3.7 Magnesium Level 1.8 Medications Medications Current Medications Loratadine (Claritin) 10 mg DAILY PO Last administered on 07/28/17 09:44; Admin Dose 10 MG; Start 07/24/17 at 09:00 Acetaminophen (Tylenol Tab) 650 mg Q4H PRN PO pain/fever; Start 07/24/17 at 07 :00; Status Future Hold Famotidine 20 mg 20 mg BID IV Last administered on 08/02/17 08:55; Admin Dose 20 MG; Start 07/24/17 at 21:00 Acetaminophen 100 ml @ 400 mls/hr Q6H IVPB Last administered on 08/02/17 05: 39; Admin Dose 400 MLS/HR; Start 07/26/17 at 18:00 Ondansetron HCl/ Sodium Chloride (Zofran Inj/NS) 54 ml @ 216 mls/hr Q6H PRN IV NAUSEA AND/OR VOMITING Last administered on 08/02/17 06:45; Admin Dose 216 MLS/HR; Start 07/27/17 at 13:00 Phenol (Chloraseptic Throat [place]) 2 spray Q2H PRN MT SORE THROAT Last administered on 07/29/17 18:10; Admin Dose 2 SPRAY; Start 07/29/17 at 13:00 Hydromorphone HCl 0.5 mg 0.5 mg Q3H PRN IV PAIN LEVEL 1-5 Last administered on 07/31/17 06:11; Admin Dose 0.5 MG; Start 07/30/17 at 10:30 Amiodarone HCl/ Dextrose (Cordarone Iv/ D5W) 500 ml @ 33.33 mls/ hr Q15H1M IV Last administered on 08/01/17 14:31; Admin Dose 16.66 MLS/HR; Start 07/30/17 at 14:00 Diphenhydramine HCl 25 mg 25 mg Q6H PRN IV SLEEP Last administered on 00:19; Admin Dose 25 MG; Start 07/31/17 at 13:00 Potassium Chloride/Sodium Chloride (1/2 NS + KCl 20 Meq) 1,000 ml @ 75 mls/hr [id number] IV Last administered on 08/02/17 08:01; Admin Dose 75 MLS/HR; Start 07/31/17 at 23:00 Digoxin (Digoxin) 0.125 mg DAILY@13 GTB ; Start 08/02/17 at 13:00 Morphine Sulfate (morphine) 1 mg Q4H PRN IV PAIN 5-10 Last administered on 08/02 06:39; Admin Dose 1 MG; Start 08/02/17 at 01:30 Hydromorphone HCl (Dilaudid) 1 mg Q3H PRN IV PAIN LEVEL 6-10; Start 08/02/17 at 01:22 Chlorpromazine 10 mg 10 mg Q6 PRN IM HICCUPS Last administered on 08/02/17 06: 54; Admin Dose 10 MG; Start 08/02/17 at 06:00 Magnesium Sulfate (Magnesium Sulfate 2 Gm/50 ml) 50 ml @ 25 mls/hr ONCE ONCE IVPB ; Start 08/02/17 at 10:00; Stop 08/02/17 at 11:59 Hilario BOTELLO Aug 02, 2017 09:56
[2017-08-02] MEDS ORDERED: MAGNESIUM SULFATE 2 GM/50 ML 50 ML IVPB ONE (10:00)
[2017-08-02] MEDS ORDERED: FUROSEMIDE 40 MG INJ ONE (11:27)
[2017-08-02] MEDS ORDERED: FUROSEMIDE 40 MG INJ IV ONE (11:30)
--- NOTE | 2017-08-02 11:31 | CONS ---
Date/Time of Note Date/Time of Note DATE: 08/02/17 TIME: 11:28 Assessment/Plan Assessment/Plan Additional Assessment/Plan Paroxysmal atrial fibrillation with rapid ventricular rates, currently sinus Low normal ejection fraction 50% Colon mass status post colon surgery July 26, 2017 SIRS Nausea and vomiting Dyspnea History of CHF History of hypertension -Patient with history of paroxysmal atrial fibrillation and currently back in sinus. Lung examination with no significant rales or rhonchi. Current oxygen saturation between 92-94% on nasal cannula. Will check chest x-ray, venous Dopplers, consider PE workup if symptoms of dyspnea do not improve. Continue IV amiodarone since unable to tolerate p.o. at the current time. Maintain potassium above 4.0 and magnesium above 2.0. Consultation Date/Type/Reason Admit Date/Time Jul 24, 2017 at 06:16 Initial Consult Date 07/29/17 Type of Consultation: cv 24 HR Interval Summary Free Text/Dictation Patient complaining of shortness of breath since last night. Denies chest pain or palpitations. Is complaining of nausea and vomiting with vomiting multiple times overnight. Exam/Review of Systems Vital Signs Vitals Vital Signs Date Time Temp Pulse Resp B/P Pulse Ox O2 Delivery O2 Flow Rate FiO2 08/02/17 08:12 94 08/02/17 07:46 98.4 16 130/60 97 08/01/17 23:39 Nasal Cannula 2.0 Intake and Output 08/01/17 08/01/17 08/02/17 15:00 23:00 07:00 Intake Total 1148.28 ml 183.32 ml 504 ml Output Total 260 ml 60 ml 600 ml Balance 888.28 ml 123.32 ml -96 ml Exam Vomiting during exam, dyspneic Constitutional: alert, oriented Head: normocephalic Respiratory: other (Coarse breath sounds bilaterally, no wheezing or rhonchi) Cardiovascular: other (S1-S2 heard), regular rate and rhythm Gastrointestinal: bowel sounds, soft Extremities: edema (Trace) Results Result Diagram: 08/02/17 0551 08/02/17 0551 Results 24 hrs Laboratory Tests Test 08/02/17 05:51 White Blood Count 10.7 Red Blood Count 5.19 Hemoglobin 12.7 Hematocrit 41.1 Mean Corpuscular Volume 79.2 L Mean Corpuscular Hemoglobin 24.5 L Mean Corpuscular Hemoglobin Concent 30.9 L Red Cell Distribution Width 21.8 H Platelet Count 318 # Mean Platelet Volume 11.2 H Neutrophils % 84.6 H Lymphocytes % 10.6 L Monocytes % 2.2 Eosinophils % 0.1 Basophils % 0.7 Nucleated Red Blood Cells % 0.0 Neutrophils # 9.1 H Lymphocytes # 1.1 Monocytes # 0.2 L Eosinophils # 0.0 Basophils # 0.1 Nucleated Red Blood Cells # 0.0 Sodium Level 138 Potassium Level 4.2 Chloride Level 99 Carbon Dioxide Level 31 Anion Gap 12 Blood Urea Nitrogen 15 Creatinine 0.56 Glucose Level 142 Calcium Level 8.0 L Phosphorus Level 3.7 Magnesium Level 1.8 Medications Medications Current Medications Loratadine (Claritin) 10 mg DAILY PO Last administered on 07/28/17 09:44; Admin Dose 10 MG; Start 07/24/17 at 09:00 Acetaminophen (Tylenol Tab) 650 mg Q4H PRN PO pain/fever; Start 07/24/17 at 07 :00; Status Future Hold Famotidine 20 mg 20 mg BID IV Last administered on 08/02/17 08:55; Admin Dose 20 MG; Start 07/24/17 at 21:00 Acetaminophen 100 ml @ 400 mls/hr Q6H IVPB Last administered on 08/02/17 05: 39; Admin Dose 400 MLS/HR; Start 07/26/17 at 18:00 Ondansetron HCl/ Sodium Chloride (Zofran Inj/NS) 54 ml @ 216 mls/hr Q6H PRN IV NAUSEA AND/OR VOMITING Last administered on 08/02/17 06:45; Admin Dose 216 MLS/HR; Start 07/27/17 at 13:00 Phenol (Chloraseptic Throat [place]) 2 spray Q2H PRN MT SORE THROAT Last administered on 07/29/17 18:10; Admin Dose 2 SPRAY; Start 07/29/17 at 13:00 Hydromorphone HCl 0.5 mg 0.5 mg Q3H PRN IV PAIN LEVEL 1-5 Last administered on 07/31/17 06:11; Admin Dose 0.5 MG; Start 07/30/17 at 10:30 Amiodarone HCl/ Dextrose (Cordarone Iv/ D5W) 500 ml @ 33.33 mls/ hr Q15H1M IV Last administered on 08/01/17 14:31; Admin Dose 16.66 MLS/HR; Start 07/30/17 at 14:00 Diphenhydramine HCl (Benadryl) 25 mg Q6H PRN IV SLEEP Last administered on 08/01 00:19; Admin Dose 25 MG; Start 07/31/17 at 13:00 Digoxin (Digoxin) 0.125 mg DAILY@13 GTB ; Start 08/02/17 at 13:00 Hydromorphone HCl (Dilaudid) 1 mg Q3H PRN IV PAIN LEVEL 6-10; Start 08/02/17 at 01:22 Chlorpromazine 10 mg 10 mg Q6 PRN IM HICCUPS Last administered on 08/02/17 06: 54; Admin Dose 10 MG; Start 08/02/17 at 06:00 Magnesium Sulfate (Magnesium Sulfate 2 Gm/50 ml) 50 ml @ 25 mls/hr ONCE ONCE IVPB ; Start 08/02/17 at 10:00; Stop 08/02/17 at 11:59 Furosemide (Lasix) 40 mg ONCE ONCE IV ; Start 08/02/17 at 11:30; Stop 08/02/17 at 11:31; Status Fercho Field DO Aug 02, 2017 11:31
--- NOTE | 2017-08-02 12:00 | PN ---
Date/Time of Note Date/Time of Note DATE: 08/02/17 TIME: 11:56 Assessment/Plan VTE Prophylaxis VTE Prophylaxis Intervention: SCD's Lines/Catheters IV Catheter Type (from Nrs): Peripheral IV Urinary Cath still in place: Yes Reason Cath still needed: urinary retention Assessment/Plan Assessment/Plan 51 year old female with: 1. Atrial fibrillation, chronic, patient back in sinus rhythm, tachycardic today due to episodes of nausea and vomiting. Patient on amiodarone drip while not tolerating p.o. well yet, also on digoxin IV, appreciate cardiology recommendations. Resume anticoagulation today, will put her on Lovenox, Dr. Aldana is in agreement. Electrolyte repletion as needed. 2. Status post Left hemicolectomy for sigmoid adenocarcinoma/mass POD#6, s/p total of 4 units pRBC since admission. Dr. Aldana following, appreciate recommendations, back n.p.o. due to episodes of nausea and vomiting overnight, likely related to morphine hypersensitivity however KUB pending. Patient already voicing that she does not want an NG tube. Hold IV fluids for now. Continue physical therapy and encouraging ambulation. On Dilaudid IV as needed for pain control, also on IV Tylenol [id number] for now. 3. Chronic congestive heart failure, chronic diastolic dysfunction and ejection fraction of 55% on latest outpatient echocardiogram in January 2017 and confirmed to be 50% on this admission Hold IV fluids currently, chest x-ray pending, Lasix 40 mg IV 1, strict I's and O's. Monitor volume status. 4. Hypertension, antihypertensive resumed with holding parameters. 5. Hyperlipidemia: Resume home medications when able to take p.o. Prophylaxis: SCDs to lower extremity for DVT prophylaxis, Pepcid for GI prophylaxis. Will anticoagulate with Lovenox for stroke prophylaxis in setting of A. fib until able to take p.o., OK per Dr Aldana Disposition: Heart rate and rhythm control, on amiodarone drip, diuresis, monitor respiratory status. Subjective 24 Hr Interval Summary Free Text/Dictation Patient with episodes of nausea and intractable vomiting today, ultimately she started having respiratory distress, chest x-rays pending, she does have some lower extremity edema therefore Lasix will be given. KUB, ABG pending, CT angiogram if needed but in the meantime per general surgery okay to start anticoagulation Exam/Review of Systems Vital Signs Vitals Vital Signs Date Time Temp Pulse Resp B/P Pulse Ox O2 Delivery O2 Flow Rate FiO2 08/02/17 11:46 98.6 108 16 141/83 97 08/01/17 23:39 Nasal Cannula 2.0 Intake and Output 08/01/17 08/01/17 08/02/17 15:00 23:00 07:00 Intake Total 1148.28 ml 183.32 ml 504 ml Output Total 260 ml 60 ml 600 ml Balance 888.28 ml 123.32 ml -96 ml Exam Constitutional: alert, distress (Respiratory), oriented Respiratory: diminished breath sounds (Bilateral, lower lobes> upper lobes), other (5 L nasal cannula) Cardiovascular: other (Sinus tachycardia) Gastrointestinal: non-tender, soft Musculoskeletal: nl extremities to inspection Extremities: normal pulses, other (No edema, clubbing or cyanosis) Neurological: MANAGER ESTATE II-XII intact, nl mental status, nl strength, other ( Currently dyspneic while in respiratory distress.) Results Result Diagram: 08/02/17 0551 08/02/17 0551 Results 24 hrs Laboratory Tests Test 08/02/17 05:51 White Blood Count 10.7 Red Blood Count 5.19 Hemoglobin 12.7 Hematocrit 41.1 Mean Corpuscular Volume 79.2 L Mean Corpuscular Hemoglobin 24.5 L Mean Corpuscular Hemoglobin Concent 30.9 L Red Cell Distribution Width 21.8 H Platelet Count 318 # Mean Platelet Volume 11.2 H Neutrophils % 84.6 H Lymphocytes % 10.6 L Monocytes % 2.2 Eosinophils % 0.1 Basophils % 0.7 Nucleated Red Blood Cells % 0.0 Neutrophils # 9.1 H Lymphocytes # 1.1 Monocytes # 0.2 L Eosinophils # 0.0 Basophils # 0.1 Nucleated Red Blood Cells # 0.0 Sodium Level 138 Potassium Level 4.2 Chloride Level 99 Carbon Dioxide Level 31 Anion Gap 12 Blood Urea Nitrogen 15 Creatinine 0.56 Glucose Level 142 Calcium Level 8.0 L Phosphorus Level 3.7 Magnesium Level 1.8 Medications Medications Current Medications Loratadine (Claritin) 10 mg DAILY PO Last administered on 07/28/17t 09:44; Admin Dose 10 MG; Start 07/24/17 at 09:00 Acetaminophen (Tylenol Tab) 650 mg Q4H PRN PO pain/fever; Start 07/24/17 at 07 :00; Status Future Hold Famotidine 20 mg 20 mg BID IV Last administered on 08/02/17 08:55; Admin Dose 20 MG; Start 07/24/17 at 21:00 Acetaminophen 100 ml @ 400 mls/hr Q6H IVPB Last administered on 08/02/17 05: 39; Admin Dose 400 MLS/HR; Start 07/26/17 at 18:00 Ondansetron HCl/ Sodium Chloride (Zofran Inj/NS) 54 ml @ 216 mls/hr Q6H PRN IV NAUSEA AND/OR VOMITING Last administered on 08/02/17 06:45; Admin Dose 216 MLS/HR; Start 07/27/17 at 13:00 Phenol (Chloraseptic Throat [place]) 2 spray Q2H PRN MT SORE THROAT Last administered on 07/29/17 18:10; Admin Dose 2 SPRAY; Start 07/29/17 at 13:00 Hydromorphone HCl 0.5 mg 0.5 mg Q3H PRN IV PAIN LEVEL 1-5 Last administered on 07/31/17 06:11; Admin Dose 0.5 MG; Start 07/30/17 at 10:30 Amiodarone HCl/ Dextrose (Cordarone Iv/ D5W) 500 ml @ 33.33 mls/ hr Q15H1M IV Last administered on 08/01/17 14:31; Admin Dose 16.66 MLS/HR; Start 07/30/17 at 14:00 Diphenhydramine HCl (Benadryl) 25 mg Q6H PRN IV SLEEP Last administered on 08/01 00:19; Admin Dose 25 MG; Start 07/31/17 at 13:00 Digoxin (Digoxin) 0.125 mg DAILY@13 GTB ; Start 08/02/17 at 13:00 Hydromorphone HCl (Dilaudid) 1 mg Q3H PRN IV PAIN LEVEL 6-10; Start 08/02/17 at 01:22 Chlorpromazine 10 mg 10 mg Q6 PRN IM HICCUPS Last administered on 08/02/17 06: 54; Admin Dose 10 MG; Start 08/02/17 at 06:00 Magnesium Sulfate (Magnesium Sulfate 2 Gm/50 ml) 50 ml @ 25 mls/hr ONCE ONCE IVPB Last administered on 08/02/17t 11:36; Admin Dose 25 MLS/HR; Start at 10:00; Stop 08/02/17 at 11:59 RAE CALVO Aug 02, 2017 12:00
[2017-08-02 12:14] LABS: AADO2 Arterial 126.2 mmHg (7.0-24.0); Allen Test ACCEPTAB; Arterial Base Excess 0.1 mmol/L (-3.0-3); Arterial COHb 0.8 % (0.0-3.0); Arterial Fraction of Oxyhgb 94.5 % (93.0-99.0); Arterial HCO3 22.8 mmol/L (22.0-26.0); Arterial MetHb 0.4 % (0.0-1.5); Arterial Total Hemglobin 15.8 g/dl (12.0-18.0); MODE NASAL CANNULA
[2017-08-02] MEDS: DIGOXIN 0.125 MG TAB GTB SCH (13:33)
--- NOTE | 2017-08-02 13:41 | RADRPT ---
PROCEDURE: US Lower extremity venous, bilateral CLINICAL INDICATION: Shortness of breath, DVT TECHNIQUE: Multiple sonographic images of the bilateral lower extremity deep venous system was ob tained utilizing grayscale, color-flow, compressive sonography and doppler imaging with augmentation . The images were reviewed on a PACS workstation. COMPARISON: None. FINDINGS: There is normal compressibility and flow within the bilateral common femoral, superficial femoral , posterior tibial, peroneal and popliteal veins. RPTAT: AA IMPRESSION: No sonographic evidence for deep venous thrombosis in bilateral lower extremities. Physician Fabian Date Time Electronically viewed and signed by Physician Fabian on 08/02/2017 13:40 /
[2017-08-02] MEDS: ENOXAPARIN 100 MG/ML SYG SC SCH ×2 (14:11→21:00)
--- NOTE | 2017-08-02 14:41 | RADRPT ---
PROCEDURE: XR Abdomen CLINICAL INDICATION: Ileus versus small bowel obstruction TECHNIQUE: An AP supine radiograph of the abdomen was submitted. COMPARISON: None FINDINGS: Vertically oriented pierre are seen to extend across the midline of the lower abdomen and horizonta lly oriented pierre are seen across the inferior pelvis. Surgical pierre are also seen within the left and right pelvis. The stomach is moderately distended with air. There is a quite distended segment of small bowel seen in the right upper quadrant with several mildly air distended segments of small bowel seen more inf eriorly. Some stool is seen in the descending colon. Findings suggest a partial or early small bowel obstruction. No organomegaly or discrete mass is identified. No pathological calcification is identified. The osseous elements appear unremarkable. Streaky infiltrate discoid atelectasis is seen at the left lung base. IMPRESSION: 1. Findings suggest an early or partial small bowel obstruction. 2. Previous pelvic surgery. 3. Infiltrate or atelectasis seen at the left lung base. Physician Osmani Date Time Electronically viewed and signed by Physician Osmani on 08/02/2017 14:41 /
--- NOTE | 2017-08-02 14:43 | RADRPT ---
PROCEDURE: XR Chest AP portable CLINICAL INDICATION: Short of breath TECHNIQUE: An AP portable radiograph of the chest was submitted. COMPARISON: 07/29/2017 FINDINGS: Support Hardware: None Cardiovascular: The cardiovascular silhouette appears unremarkable. Lung Borjas: There has been interval development of a infiltrate or subsegmental atelectasis seen to the heart within the medial left lower lobe. Pleural Spaces: No pneumothorax or pleural effusion is identified. Osseous Structures: Mild diffuse degenerative spine changes are noted. Soft Tissues: A skin fold projects to the left hemithorax IMPRESSION: 1. Development of subsegmental atelectasis or infiltrate within the medial left lower lobe. 2. Mild degenerative spine changes. Physician Osmani Date Time Electronically viewed and signed by Physician Osmani on 08/02/2017 14:43 /
[2017-08-03] VITALS (12 sets, daily range): BP systolic 103–123; BP diastolic 68–78; PULSE 103–128; RESP 19–28
[2017-08-03] MEDS: ONDANSETRON INJ 8 MG in SOD CHLORIDE 0.9% 50 ML IV PRN ×2 (00:59→06:19)
[2017-08-03] MEDS: CHLORPROMAZINE 50 MG INJ IM PRN (03:59)
[2017-08-03] MEDS: ACETAMINOPHEN 1000MG/100ML IV 100 ML IVPB SCH ×4 (05:47→23:04)
[2017-08-03 06:52] LABS: ABNORMAL IP MESSAGE 1; HEMATOCRIT 43.7 % (37.0-47.0); HEMOGLOBIN 13.7 g/dl (12.0-16.0); MEAN CORPUSCULAR HEMOGLOBIN 24.6 pg (29.0-33.0); MEAN CORPUSCULAR HGB CONC 31.4 g/dl (32.0-37.0); MEAN CORPUSCULAR VOLUME 78.6 fl (82.0-101.0); PLATELET COUNT 360 10^3/UL (140-415); RED BLOOD COUNT 5.56 10^6/ul (4.20-5.40); RED CELL DISTRIBUTION WIDTH 21.7 % (11.5-14.5); WHITE BLOOD COUNT 15.5 10^3/ul (4.8-10.8)
[2017-08-03 07:05] LABS: POSITIVE DIFF @See below
[2017-08-03 07:11] LABS: MAGNESIUM 2.3 mg/dl (1.7-2.5)
[2017-08-03 07:20] LABS: CALCIUM 7.6 mg/dl (8.4-10.2); CREATININE 0.75 mg/dl (0.44-1.00); POTASSIUM 4.5 mmol/L (3.5-5.1)
[2017-08-03] MEDS: LORATADINE 10 MG TAB PO SCH (08:53)
[2017-08-03] MEDS: FAMOTIDINE 20 MG INJ IV SCH ×2 (08:53→20:55)
[2017-08-03 08:54] LABS: ANISOCYTOSIS 1+ (0-0); GIANT THROMBO% (M) 5 % (0-0); METAMYELOCYTES %M 2 % (0-0); MICROCYTOSIS 1+ (0-0); MONOCYTES % (M) 4 % (0-11); PLATELET ESTIMATE NORMAL; POIKILOCYTOSIS 1+ (0-0); PROMYELOCYTES #M 0.3 10^3/ul (0-0); PROMYELOCYTES % (M) 2 % (0-0)
[2017-08-03] MEDS: ENOXAPARIN 100 MG/ML SYG SC SCH ×2 (09:23→21:15)
[2017-08-03] MEDS ORDERED: LEVOFLOXACIN 500MG/D5W (PMX) 100 ML IVPB SCH (13:00)
--- NOTE | 2017-08-03 13:17 | PN ---
Date/Time of Note Date/Time of Note DATE: 08/03/17 TIME: 12:59 Assessment/Plan VTE Prophylaxis VTE Prophylaxis Intervention: LMWH (treatment dose ) Lines/Catheters IV Catheter Type (from Nrs): Peripheral IV Urinary Cath still in place: Yes Reason Cath still needed: urinary retention Assessment/Plan Assessment/Plan 51 year old female with: 1. Atrial fibrillation, chronic, patient back in sinus rhythm, tachycardic today due to episodes of nausea and vomiting. In Sinus tach Continue amiodarone drip while not tolerating p.o. well yet, also on digoxin IV , appreciate cardiology recommendations. Resumed anticoagulation yesterday, on Lovenox, Dr. Aldana is in agreement. Electrolyte repletion as needed. 2. Status post Left hemicolectomy for sigmoid adenocarcinoma/mass POD#7, s/p total of 4 units pRBC since admission. Patient with KUB yesterday showing possible early SBO, patient has refused NGT yesterday but agreeable today. WBC up, ? aspiration PNA vs intra-abdo source. Will resume Levaquin and Flagyl Dr. Mattson covering for Dr Aldana, appreciate recommendations, NPO Follow up repeat CXR and KUB today. Hold IV fluids for now. s/p LAsix 40 mg IV x 1 yesterday. On Dilaudid IV as needed for pain control, also on IV Tylenol [id number] for now. 3. Chronic congestive heart failure, chronic diastolic dysfunction and ejection fraction of 55% on latest outpatient echocardiogram in January 2017 and confirmed to be 50% on this admission Hold IV fluids currently, chest x-ray pending, Lasix 40 mg IV 1, strict I's and O's. Monitor volume status. 4. Leukocytosis with left shift today, afebrile, repeat KUB abd CXR pending, resume abx, check lactate 5. Hypertension, antihypertensive resumed with holding parameters. 6. Hyperlipidemia: Resume home medications when able to take p.o. Prophylaxis: Back on anticoagulation, on Lovenox, Pepcid for GI prophylaxis. Disposition: Heart rate and rhythm control, on amiodarone drip, diuresis prn and resuming abx and f/u on CXR and KUB. Subjective 24 Hr Interval Summary Free Text/Dictation Patient still with some respiratory distress, CXR with atelectasis yesterday and KUB with early SBO but patient was refusing NGT. Today, WBC up to 15 with left shift, repeat KUB and CXR pending, lactate pending Exam/Review of Systems Vital Signs Vitals Vital Signs Date Time Temp Pulse Resp B/P Pulse Ox O2 Delivery O2 Flow Rate FiO2 08/03/17 12:33 128 08/03/17 12:14 97.5 26 103/74 93 08/03/17 05:19 5.0 08/02/17 20:00 Nasal Cannula Intake and Output 08/02/17 08/02/17 08/03/17 15:00 23:00 07:00 Intake Total 1157.92 ml 474 ml 254 ml Output Total 800 ml 350 ml Balance 1157.92 ml -326 ml -96 ml Exam Constitutional: alert, obese, oriented Respiratory: diminished breath sounds (bases ) Cardiovascular: other (sinus tachycardia ) Gastrointestinal: non-tender, soft Musculoskeletal: nl extremities to inspection, nl gait and stance Extremities: normal pulses Neurological: FLEXO PRESS OPERATOR II-XII intact, nl mental status, nl speech Results Result Diagram: 08/03/1718 08/03/1718 Results 24 hrs Laboratory Tests Test 08/02/17 22:15 08/03/17 05:18 Bedside Glucose 147 White Blood Count 15.5 #H Red Blood Count 5.56 H Hemoglobin 13.7 Hematocrit 43.7 Mean Corpuscular Volume 78.6 L Mean Corpuscular Hemoglobin 24.6 L Mean Corpuscular Hemoglobin Concent 31.4 L Red Cell Distribution Width 21.7 H Platelet Count 360 Mean Platelet Volume 12.0 H Neutrophils % Segmented Neutrophils % (Manual) 38 L Band Neutrophils % (Manual) 43 H Lymphocytes % Lymphocytes % (Manual) 11 L Monocytes % Monocytes % (Manual) 4 Eosinophils % Basophils % Metamyelocytes % (manual) 2 H Promyelocytes % (Manual) 2 H Nucleated Red Blood Cells % 0.0 Neutrophils # Neutrophils # (Manual) 6.9 Band Neutrophils # 6.6 H Absolute Lymphocytes (Manual) 1.7 Lymphocytes # Monocytes # Absolute Monocytes (Manual) 0.6 Eosinophils # Basophils # Metamyelocytes # 0.3 H Promyelocytes # 0.3 H Nucleated Red Blood Cells # Platelet Estimate NORMAL Giant Platelets 5 H Poikilocytosis 1+ Anisocytosis 1+ Microcytosis 1+ Sodium Level 136 Potassium Level 4.5 Chloride Level 99 Carbon Dioxide Level 26 Anion Gap 16 Blood Urea Nitrogen 25 H Creatinine 0.75 Glucose Level 140 Calcium Level 7.6 L Phosphorus Level 5.0 H Magnesium Level 2.3 Medications Medications Current Medications Loratadine (Claritin) 10 mg DAILY PO Last administered on 08/03/17 08:53; Admin Dose 10 MG; Start 07/24/17 at 09:00 Acetaminophen (Tylenol Tab) 650 mg Q4H PRN PO pain/fever; Start 07/24/17 at 07 :00; Status Future Hold Famotidine 20 mg 20 mg BID IV Last administered on 08/03/17 08:53; Admin Dose 20 MG; Start 07/24/17 at 21:00 Acetaminophen 100 ml @ 400 mls/hr Q6H IVPB Last administered on 08/03/17 12: 39; Admin Dose 400 MLS/HR; Start 07/26/17 at 18:00 Ondansetron HCl/ Sodium Chloride (Zofran Inj/NS) 54 ml @ 216 mls/hr Q6H PRN IV NAUSEA AND/OR VOMITING Last administered on 08/03/17 06:19; Admin Dose 216 MLS/HR; Start 07/27/17 at 13:00 Phenol (Chloraseptic Throat [place]) 2 spray Q2H PRN MT SORE THROAT Last administered on 07/29/17 18:10; Admin Dose 2 SPRAY; Start 07/29/17 at 13:00 Hydromorphone HCl 0.5 mg 0.5 mg Q3H PRN IV PAIN LEVEL 1-5 Last administered on 07/31/17 06:11; Admin Dose 0.5 MG; Start 07/30/17 at 10:30 Amiodarone HCl/ Dextrose (Cordarone Iv/ D5W) 500 ml @ 33.33 mls/ hr Q15H1M IV Last administered on 08/02/17 23:22; Admin Dose 16.66 MLS/HR; Start 07/30/17 at 14:00 Diphenhydramine HCl (Benadryl) 25 mg Q6H PRN IV SLEEP Last administered on 08/01 00:19; Admin Dose 25 MG; Start 07/31/17 at 13:00 Digoxin (Digoxin) 0.125 mg DAILY@13 GTB Last administered on 08/02/17 13:33; Admin Dose 0.125 MG; Start 08/02/17 at 13:00 Chlorpromazine (Thorazine) 10 mg Q6 PRN IM HICCUPS Last administered on 03:59; Admin Dose 10 MG; Start 08/02/17 at 06:00 Enoxaparin Sodium (Lovenox) 95 mg Q12 SC Last administered on 08/03/17 09:23; Admin Dose 95 MG; Start 08/02/17 at 13:00 RAE CALVO Aug 03, 2017 13:09
[2017-08-03] MEDS ORDERED: LEVOFLOXACIN 750MG/D5W (PMX) 150 ML IVPB SCH (13:30)
--- NOTE | 2017-08-03 13:30 | PN ---
Date/Time of Note Date/Time of Note DATE: 08/03/17 TIME: 13:27 Assessment/Plan VTE Prophylaxis VTE Prophylaxis Intervention: SCD's Lines/Catheters IV Catheter Type (from Nrsg): Peripheral IV Urinary Cath still in place: Yes Reason Cath still needed: urinary retention Assessment/Plan Assessment/Plan Paroxysmal atrial fibrillation with rapid ventricular rates, currently sinus Low normal ejection fraction 50% Colon mass status post colon surgery July 26, 2017 SIRS Nausea and vomiting Dyspnea History of CHF History of hypertension -Patient with history of paroxysmal atrial fibrillation and currently back in sinus. Lung examination with no significant rales or rhonchi. Current oxygen saturation between 92-94% on nasal cannula. , consider PE workup if symptoms of dyspnea do not improve. Maintain potassium above 4.0 and magnesium above 2.0. -d/c IV amio and possible po antiarrythmics when begins po intake - Subjective 24 Hr Interval Summary Free Text/Dictation The patient with persitent SOB and tachypnear Exam/Review of Systems Vital Signs Vitals Vital Signs Date Time Temp Pulse Resp B/P Pulse Ox O2 Delivery O2 Flow Rate FiO2 08/03/17 12:33 128 08/03/17 12:14 97.5 26 103/74 93 08/03/17 05:19 5.0 08/02/17 20:00 Nasal Cannula Intake and Output 08/02/17 08/02/17 08/03/17 15:00 23:00 07:00 Intake Total 1157.92 ml 474 ml 254 ml Output Total 800 ml 350 ml Balance 1157.92 ml -326 ml -96 ml Results Result Diagram: 08/03/17 0518 08/03/17 0518 Results 24 hrs Laboratory Tests Test 08/02/17 22:15 08/03/17 05:18 Bedside Glucose 147 White Blood Count 15.5 #H Red Blood Count 5.56 H Hemoglobin 13.7 Hematocrit 43.7 Mean Corpuscular Volume 78.6 L Mean Corpuscular Hemoglobin 24.6 L Mean Corpuscular Hemoglobin Concent 31.4 L Red Cell Distribution Width 21.7 H Platelet Count 360 Mean Platelet Volume 12.0 H Neutrophils % Segmented Neutrophils % (Manual) 38 L Band Neutrophils % (Manual) 43 H Lymphocytes % Lymphocytes % (Manual) 11 L Monocytes % Monocytes % (Manual) 4 Eosinophils % Basophils % Metamyelocytes % (manual) 2 H Promyelocytes % (Manual) 2 H Nucleated Red Blood Cells % 0.0 Neutrophils # Neutrophils # (Manual) 6.9 Band Neutrophils # 6.6 H Absolute Lymphocytes (Manual) 1.7 Lymphocytes # Monocytes # Absolute Monocytes (Manual) 0.6 Eosinophils # Basophils # Metamyelocytes # 0.3 H Promyelocytes # 0.3 H Nucleated Red Blood Cells # Platelet Estimate NORMAL Giant Platelets 5 H Poikilocytosis 1+ Anisocytosis 1+ Microcytosis 1+ Sodium Level 136 Potassium Level 4.5 Chloride Level 99 Carbon Dioxide Level 26 Anion Gap 16 Blood Urea Nitrogen 25 H Creatinine 0.75 Glucose Level 140 Calcium Level 7.6 L Phosphorus Level 5.0 H Magnesium Level 2.3 Medications Medications Current Medications Loratadine (Claritin) 10 mg DAILY PO Last administered on 08/03/17 08:53; Admin Dose 10 MG; Start 07/24/17 at 09:00 Acetaminophen (Tylenol Tab) 650 mg Q4H PRN PO pain/fever; Start 07/24/17 at 07 :00; Status Future Hold Famotidine 20 mg 20 mg BID IV Last administered on 08/03/17 08:53; Admin Dose 20 MG; Start 07/24/17 at 21:00 Acetaminophen 100 ml @ 400 mls/hr Q6H IVPB Last administered on 08/03/17 12: 39; Admin Dose 400 MLS/HR; Start 07/26/17 at 18:00 Ondansetron HCl/ Sodium Chloride (Zofran Inj/NS) 54 ml @ 216 mls/hr Q6H PRN IV NAUSEA AND/OR VOMITING Last administered on 08/03/17 06:19; Admin Dose 216 MLS/HR; Start 07/27/17 at 13:00 Phenol (Chloraseptic Throat [place]) 2 spray Q2H PRN MT SORE THROAT Last administered on 07/29/17 18:10; Admin Dose 2 SPRAY; Start 07/29/17 at 13:00 Hydromorphone HCl 0.5 mg 0.5 mg Q3H PRN IV PAIN LEVEL 1-5 Last administered on 07/31/17 06:11; Admin Dose 0.5 MG; Start 07/30/17 at 10:30 Amiodarone HCl/ Dextrose (Cordarone Iv/ D5W) 500 ml @ 33.33 mls/ hr Q15H1M IV Last administered on 08/02/17 23:22; Admin Dose 16.66 MLS/HR; Start 07/30/17 at 14:00 Diphenhydramine HCl (Benadryl) 25 mg Q6H PRN IV SLEEP Last administered on 08/01 00:19; Admin Dose 25 MG; Start 07/31/17 at 13:00 Digoxin (Digoxin) 0.125 mg DAILY@13 GTB Last administered on 08/02/17 13:33; Admin Dose 0.125 MG; Start 08/02/17 at 13:00 Chlorpromazine (Thorazine) 10 mg Q6 PRN IM HICCUPS Last administered on 03:59; Admin Dose 10 MG; Start 08/02/17 at 06:00 Enoxaparin Sodium 95 mg 95 mg Q12 SC Last administered on 08/03/17 09:23; Admin Dose 95 MG; Start 08/02/17 at 13:00 Metronidazole 100 ml @ 100 mls/hr Q8 IVPB ; Start 08/03/17 at 14:00 Levofloxacin/ Dextrose (Levaquin 750 Mg/ D5W 150 ml (Pmx)) 150 ml @ 100 mls/hr Q24H IVPB ; Start 08/03/17 at 13:30 MURPHY MARIANO MD Aug 03, 2017 13:30
[2017-08-03 13:47] LABS: ADD UMIC YES; UR ASCORBIC ACID NEGATIVE (NEGATIVE); UR BILIRUBIN (Dip) 1+ mg/dL (NEGATIVE); UR BLOOD (Dip) 1+ mg/dL (NEGATIVE); UR CLARITY CLEAR (CLEAR); UR COLOR AMBER (YELLOW); UR GLUCOSE (Dip) NEGATIVE (NEGATIVE); UR KETONES (Dip) NEGATIVE (NEGATIVE); UR LEUKOCYTE ESTERASE (Dip) NEGATIVE Leu/ul (NEGATIVE); UR NITRITE (Dip) NEGATIVE (NEGATIVE); UR RBC 25 /HPF (0-5); UR SPECIFIC GRAVITY (Dip) 1.034 (1.003-1.030); UR TOTAL PROTEIN (Dip) 1+ mg/dl (NEGATIVE); UR UROBILINOGEN (Dip) 2+ mg/dL (NEGATIVE)
--- NOTE | 2017-08-03 14:06 | RADRPT ---
PROCEDURE: XR Chest AP portable CLINICAL INDICATION: Fluid retention TECHNIQUE: An AP portable radiograph of the chest was submitted. COMPARISON: 08/02/2017 FINDINGS: Support Hardware: None Cardiovascular: The cardiovascular silhouette appears unremarkable. Lung Borjas: Worsening air space opacification is seen within the left mid to lower lung zone. Pleural Spaces: The left costophrenic angle is now blunted suspicious for development of a small lef t pleural fluid accumulation. No pneumothorax is evident. Osseous Structures: Mild diffuse degenerative endplate changes are seen to the spine. Soft Tissues: The soft tissues appear generous. IMPRESSION: 1. Worsening air space opacification involving the left mid to lower lung zone. 2. Development of a small left pleural fluid accumulation. Physician Osmani Date Time Electronically viewed and signed by Kenya Toure Physician on 08/03/2017 14:06 RH/
--- NOTE | 2017-08-03 14:08 | RADRPT ---
PROCEDURE: XR Abdomen CLINICAL INDICATION: Adhesions TECHNIQUE: An AP supine radiograph of the abdomen was submitted. COMPARISON: 08/02/2017 FINDINGS: Surgical pierre are again seen to the inferior abdomen and pelvis. The stomach remains moderately distended with air and there is a very distended segment of small bow el seen within the left upper quadrant measuring 8 cm in cross diameter compatible with partial obst ruction. No organomegaly or discrete mass is identified. No pathological calcification is identified. Degenerative endplate changes are seen at the lumbosacral junction. There is atelectasis or infiltrate within the left lung base. IMPRESSION: 1. Previous lower abdominal and pelvic surgery again noted. 2. Again there is a partial small bowel bowel obstruction. 3. Atelectasis or infiltrate again seen at the left lung base. Physician Osmani Date Time Electronically viewed and signed by Kenya Toure Physician on 08/03/2017 14:08 /
[2017-08-03] MEDS: metroNIDAZOLE 500 MG/NS (PMX) 100 ML IVPB SCH ×2 (15:38→21:04)
[2017-08-03] MEDS: DIGOXIN 0.125 MG TAB GTB SCH (15:38)
[2017-08-03] MEDS ORDERED: IOHEXOL 100 ML ONE (16:53)
[2017-08-03] MEDS ORDERED: SOD CHLORIDE 0.9% 100 ML ONE (16:53)
[2017-08-03] MEDS: SOD CHLORIDE 0.9% 1,000 ML IV SCH (18:31)
[2017-08-03] MEDS: DIGOXIN 500 MCG INJ IV SCH (18:39)
--- NOTE | 2017-08-03 18:44 | RADRPT ---
PROCEDURE: CTA chest pulmonary angiography. CLINICAL INDICATION: Dyspnea. TECHNIQUE: CT angiography of the chest was performed after the uneventful intravenous administratio n of 100 cc of Omnipaque 350. Coronal and sagittal reformations were performed. 3-D/multiplanar re formations were performed by the technologist and an independent workstation. The total exam CTDI = 49.29, 12.96 mGy and the DLP equals 433.92 mGy-cm. One or more of the following dose reduction techniques were used: - Automated exposure control. - Adjustment of the mA and/or kV according to patient size. - Use of iterative reconstruction technique. COMPARISON: Chest x-ray dated 08/03/2017. FINDINGS: Pulmonary angiogram: There are no emboli through the level of the subsegmental pulmonary arteries. The main pulmonary artery is normal in caliber and there is no evidence of right heart strain. Lungs, pleura, airways, and thoracic inlet: There are moderate right and small left pleural effusio ns with associated dependent compressive atelectasis. There is no pneumothorax. The tracheobronchia l tree is patent and normal in course and caliber. Cardiovascular system, mediastinum, and lymphatics: The heart is normal in size. There is a small pe ricardial effusion. There are atherosclerotic changes of the aorta, which is nonaneurysmal. There i s no axillary, hilar, or mediastinal adenopathy. Visualized upper abdomen: There is an NG tube that descends below the GE junction and out of the fi eld of view. There is ascites within the visualized upper abdomen. There are small nondependent foci of free air within the visualized upper abdomen. The visualized gallbladder demonstrates wall thick ening. Musculoskeletal system and soft tissues: There is mild to moderate multilevel degenerative enthesop athy. There are no concerning osseous lesions. The soft tissues are unremarkable. IMPRESSION: 1. No pulmonary emboli through the level of the subsegmental pulmonary arteries. 2. Findings of a positive fluid volume status with moderate small left pleural effusions, small aleyda cardial effusion, and ascites. 3. Small foci of free air within the visualized upper abdomen, likely postoperative in nature. RPTAT: HLBP .Jose Richmond MD, Date Time Electronically viewed and signed by .Jose Richmond MD, MD on 08/03/2017 18:44 .P/
[2017-08-04] VITALS (12 sets, daily range): BP systolic 105–119; BP diastolic 60–79; PULSE 90–110; RESP 17–22
[2017-08-04] MEDS: SOD CHLORIDE 0.9% 1,000 ML IV SCH ×2 (03:23→13:08)
[2017-08-04] MEDS: ACETAMINOPHEN 1000MG/100ML IV 100 ML IVPB SCH ×4 (05:13→23:24)
[2017-08-04] MEDS: metroNIDAZOLE 500 MG/NS (PMX) 100 ML IVPB SCH (05:13)
[2017-08-04 05:44] LABS: AADO2 Arterial 154.2 mmHg (7.0-24.0); Allen Test ACCEPTAB; Arterial Base Excess 0.2 mmol/L (-3.0-3); Arterial COHb 0.9 % (0.0-3.0); Arterial Fraction of Oxyhgb 93.7 % (93.0-99.0); Arterial MetHb 0.2 % (0.0-1.5); Arterial Total Hemglobin 15.3 g/dl (12.0-18.0); MODE NASAL CANNULA
[2017-08-04 06:34] LABS: ABNORMAL IP MESSAGE 1; HEMATOCRIT 44.4 % (37.0-47.0); HEMOGLOBIN 14.2 g/dl (12.0-16.0); MEAN CORPUSCULAR HEMOGLOBIN 24.5 pg (29.0-33.0); MEAN CORPUSCULAR VOLUME 76.6 fl (82.0-101.0); MEAN PLATELET VOLUME 12.5 fl (7.4-10.4); NUCLEATED RED BLOOD CELLS% 0.1 /100WBC (0.0-0.0); PLATELET COUNT 432 10^3/UL (140-415); RED CELL DISTRIBUTION WIDTH 22.2 % (11.5-14.5); WHITE BLOOD COUNT 17.5 10^3/ul (4.8-10.8)
[2017-08-04] MEDS: ONDANSETRON INJ 8 MG in SOD CHLORIDE 0.9% 50 ML IV PRN ×2 (06:43→18:26)
[2017-08-04 06:45] LABS: POSITIVE DIFF @See below
[2017-08-04 06:51] LABS: MAGNESIUM 2.4 mg/dl (1.7-2.5)
[2017-08-04 06:57] LABS: ALBUMIN 2.3 g/dl (3.3-4.9); ALBUMIN/GLOBULIN RATIO 0.76; BILIRUBIN,INDIRECT 0.5 mg/dl (0-1.1); BILIRUBIN,TOTAL 0.5 mg/dl (0.2-1.3); CALCIUM 7.1 mg/dl (8.4-10.2); CREATININE 1.42 mg/dl (0.44-1.00); TOTAL PROTEIN 5.3 g/dl (6.1-8.1)
[2017-08-04] MEDS: FAMOTIDINE 20 MG INJ IV SCH ×2 (08:50→21:20)
[2017-08-04] MEDS: ENOXAPARIN 100 MG/ML SYG SC SCH ×2 (08:53→21:20)
[2017-08-04] MEDS: LORATADINE 10 MG TAB NGT SCH (09:32)
[2017-08-04 09:46] LABS: ANISOCYTOSIS 1+ (0-0); GIANT THROMBO% (M) 10 % (0-0); METAMYELOCYTES %M 2 % (0-0); MICROCYTOSIS 1+ (0-0); MONOCYTES % (M) 9 % (0-11); PLATELET ESTIMATE NORMAL
--- NOTE | 2017-08-04 10:18 | RADRPT ---
PROCEDURE: XR Abdomen. CLINICAL INDICATION: Abdomen pain. TECHNIQUE: AP supine abdomen x-ray. COMPARISON: 08/03/2017. FINDINGS: The nasogastric tube has been inserted in satisfactory position. There is dilated small bowel in the upper abdomen measuring 8.2 cm, unchanged the bowel gas pattern is otherwise normal. Multiple skin pierre are present in the abdomen and pelvis. There is a Leal catheter in the bladde r. There are no abnormal calcifications overlying the urinary tracts. There are mild degenerative changes of the lower lumbar spine. IMPRESSION: 1. Nasogastric tube in satisfactory position. 2. Dilated small bowel in the upper abdomen, unchanged. 3. Surgical skin pierre noted. RPTAT: QQ .Kana Renteria MD, MD Date Time Electronically viewed and signed by .Kana Renteria MD, on 08/04/2017 10:18 .R/
[2017-08-04] MEDS ORDERED: VANCOMYCIN IV PER PHARMACY XX SCH (11:00)
--- NOTE | 2017-08-04 12:08 | PN ---
Date/Time of Note Date/Time of Note DATE: 08/04/17 TIME: 11:44 Assessment/Plan VTE Prophylaxis VTE Prophylaxis Intervention: LMWH (Treatment dosing, stroke prevention) Lines/Catheters IV Catheter Type (from Nrs): Peripheral IV Urinary Cath still in place: Yes Reason Cath still needed: urinary retention, other (indicate) (strict i/o) Assessment/Plan Assessment/Plan 51 year old female with: 1. Respiratory distress, so far patient seems to have possible aspiration pneumonia versus healthcare associated pneumonia, also signs of volume overload on CAT scan. No pulmonary embolus. On IV antibiotics, due to elevated lactate Gentle IV fluid hydration in setting of slightly elevated lactate and decreased renal function with elevated creatinine, however if worsening respiratory distress will have to stop IV fluids and diuresis 2. Atrial fibrillation, chronic, patient back in sinus rhythm, tachycardic still , 104. No nausea/vomiting today. Continue amiodarone drip while not tolerating p.o. well yet, also on digoxin IV , appreciate cardiology recommendations. Resumed anticoagulation x 2 days, on Lovenox, Dr. Aldana is in agreement. Electrolyte repletion as needed. 3. Status post Left hemicolectomy for sigmoid adenocarcinoma/mass POD#7, s/p total of 4 units pRBC since admission. Patient with KUB yesterday again showing early SBO, patient finally agreed to have an NG tube placed yesterday, there is relief of her distention and also for nausea and vomiting. She does feel better today. Appreciate assistance from Dr. Mattson WBC still elevated with possible aspiration versus healthcare associated pneumonia, antibiotic changed to meropenem and vancomycin. NPO On Dilaudid IV as needed for pain control, also on IV Tylenol [id number] for now. 4. Chronic congestive heart failure, chronic diastolic dysfunction and ejection fraction of 55% on latest outpatient echocardiogram in January 2017 and confirmed to be 50% on this admission Unfortunately with SIRS and signs of acute infection, patient's lactic acid has been elevated to 3.5 still at 2.6 today. Renal function has dropped today, therefore we will put her on some IV fluids at 75 cc an hour with close monitoring. She may need to be diuresed in the next few days Monitor volume status. 5. Persistent leukocytosis with left shift and bandemia, afebrile, Slightly elevated lactic acid Antibiotics adjusted today Repeat lactic acid in a.m. Monitor closely. 6. Acute kidney injury, noted today, patient status post dose of Lasix 2 days ago but also noted to have elevated lactic acid yesterday. ABG with no signs of acidosis, bicarb within normal. Will increase her IV fluids to 75 cc/hr for 24 hours prior to decreasing it back down. Monitor respiratory status in the meantime closely along with urine output 7. Hypertension, antihypertensive resumed with holding parameters. 8. Hyperlipidemia: Resume home medications when able to take p.o. Prophylaxis: Back on anticoagulation, on Lovenox, Pepcid for GI prophylaxis. Disposition: Heart rate and rhythm control, on amiodarone drip, antibiotic treatment. Subjective 24 Hr Interval Summary Free Text/Dictation Patient felt better yesterday, once NG tube was placed with aspiration of approximately 700 cc of bilious fluid. Chest x-ray did show left lower lobe left upper lobe infiltrate, she does have pleural effusions on CT of the chest. However patient with decreased renal function today, along with elevated lactic acid prompting for us to give some IV fluids. Antibiotics adjusted to possible healthcare associated pneumonia Exam/Review of Systems Vital Signs Vitals Vital Signs Date Time Temp Pulse Resp B/P Pulse Ox O2 Delivery O2 Flow Rate FiO2 08/04/17 09:50 97 5.0 08/04/17 08:51 108 08/04/17 08:30 Nasal Cannula 08/04/17 07:13 98.9 18 116/69 08/03/17 18:02 40 Intake and Output 08/03/17 08/03/17 08/04/17 15:00 23:00 07:00 Intake Total 100 ml 1450 ml Output Total 1275 ml 1050 ml Balance -1175 ml 400 ml Exam Constitutional: alert, obese, oriented, other (More comfortable), well developed Respiratory: diminished breath sounds (Bases bilaterally), labored breathing ( Slightly labored), other (Congested) Gastrointestinal: ascites (On CAT scan), other (Much less distended), soft, tender (Mild tenderness) Musculoskeletal: nl extremities to inspection Extremities: normal pulses, other (No anasarca) 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, nl mental status, nl speech, other ( Generalized weakness) Results Result Diagram: 08/04/17 0538 08/04/17 0538 Results 24 hrs Laboratory Tests Test 08/03/17 13:01 11/4/17 14:35 08/04/17 05:00 08/04/17 05:38 Urine Color JEANNA Urine Clarity CLEAR Urine pH 5.0 Urine Specific [employer] 1.034 H Urine Ketones NEGATIVE Urine Nitrite NEGATIVE Urine Bilirubin 1+ H Urine Urobilinogen 2+ H Urine Leukocyte Esterase NEGATIVE Urine Microscopic RBC 25 H Urine Microscopic WBC 6 H Urine Hemoglobin 1+ H Urine Glucose NEGATIVE Urine Total Protein 1+ H Lactic Acid Level 3.4 *H 3.6 *H B-Type Natriuretic Peptide 1260 H Blood Gas Specimen Source Blood arterial Arterial Blood Date Drawn 08/04/2017 5:10:58 AM Arterial Blood pH (Temp corrected) 7.506 H Arterial Blood pCO2 (Temp correct) 28.4 L Arterial Blood pO2 (Temp corrected) 69.5 L Arterial Blood HCO3 22.0 Arterial Blood Base Excess 0.2 Arterial Blood Oxygen Saturation 94.7 L Brian Test ACCEPTAB Arterial Blood Gas Puncture Site Right Radial Arterial Blood Carboxyhemoglobin 0.9 Arterial Blood Methemoglobin 0.2 Blood Gas A-a O2 Differential 154.2 H Oxyhemoglobin Percent 93.7 Total Hemoglobin 15.3 Blood Gas Temperature 37.0 Blood Gas Actual Respiration Rate 30 Blood Gas Modality NASAL CANNULA FiO2 36.0 Blood Gas Notified Whom MH Blood Gas Notified Time 08/04/2017 5:44:04 AM White Blood Count 17.5 H Red Blood Count 5.80 H Hemoglobin 14.2 Hematocrit 44.4 Mean Corpuscular Volume 76.6 L Mean Corpuscular Hemoglobin 24.5 L Mean Corpuscular Hemoglobin Concent 32.0 Red Cell Distribution Width 22.2 H Platelet Count 432 H Mean Platelet Volume 12.5 H Neutrophils % Segmented Neutrophils % (Manual) 50 Band Neutrophils % (Manual) 34 H Lymphocytes % Lymphocytes % (Manual) 5 L Monocytes % Monocytes % (Manual) 9 Eosinophils % Basophils % Metamyelocytes % (manual) 2 H Nucleated Red Blood Cells % 0.1 H Neutrophils # Neutrophils # (Manual) 9.8 H Band Neutrophils # 5.9 H Absolute Lymphocytes (Manual) 0.8 Lymphocytes # Monocytes # Absolute Monocytes (Manual) 1.5 H Eosinophils # Basophils # Metamyelocytes # 0.3 H Nucleated Red Blood Cells # Platelet Estimate NORMAL Giant Platelets 10 H Anisocytosis 1+ Microcytosis 1+ Sodium Level 135 Potassium Level 5.0 Chloride Level 99 Carbon Dioxide Level 23 Anion Gap 18 H Blood Urea Nitrogen 50 H Creatinine 1.42 H Glucose Level 115 Calcium Level 7.1 L Phosphorus Level 6.0 H Magnesium Level 2.4 Total Bilirubin 0.5 Direct Bilirubin 0.00 Indirect Bilirubin 0.5 Aspartate Amino Transf (AST/SGOT) 32 Alanine Aminotransferase (ALT/SGPT) 28 Alkaline Phosphatase 108 Total Protein 5.3 L Albumin 2.3 L Globulin 3.00 Albumin/Globulin Ratio 0.76 Imaging Free Text/Dictation PROCEDURE: CTA chest pulmonary angiography. CLINICAL INDICATION: Dyspnea. TECHNIQUE: CT angiography of the chest was performed after the uneventful intravenous administration of 100 cc of Omnipaque 350. Coronal and sagittal reformations were performed. 3-D/multiplanar reformations were performed by the technologist and an independent workstation. The total exam CTDI = 49.29, 12.96 mGy and the DLP equals 433.92 mGy-cm. One or more of the following dose reduction techniques were used: - Automated exposure control. - Adjustment of the mA and/or kV according to patient size. - Use of iterative reconstruction technique. COMPARISON: Chest x-ray dated 08/03/2017. FINDINGS: Pulmonary angiogram: There are no emboli through the level of the subsegmental pulmonary arteries. The main pulmonary artery is normal in caliber and there is no evidence of right heart strain. Lungs, pleura, airways, and thoracic inlet: There are moderate right and small left pleural effusions with associated dependent compressive atelectasis. There is no pneumothorax. The tracheobronchial tree is patent and normal in course and caliber. Cardiovascular system, mediastinum, and lymphatics: The heart is normal in size. There is a small pericardial effusion. There are atherosclerotic changes of the aorta, which is nonaneurysmal. There is no axillary, hilar, or mediastinal adenopathy. Visualized upper abdomen: There is an NG tube that descends below the GE junction and out of the field of view. There is ascites within the visualized upper abdomen. There are small nondependent foci of free air within the visualized upper abdomen. The visualized gallbladder demonstrates wall thickening. Musculoskeletal system and soft tissues: There is mild to moderate multilevel degenerative enthesopathy. There are no concerning osseous lesions. The soft tissues are unremarkable. IMPRESSION: 1. No pulmonary emboli through the level of the subsegmental pulmonary arteries. 2. Findings of a positive fluid volume status with moderate small left pleural effusions, small pericardial effusion, and ascites. 3. Small foci of free air within the visualized upper abdomen, likely postoperative in nature. RPTAT: HLBP .Jose Richmond MD, MD Date Time Electronically viewed and signed by .Jose Richmond MD, on 08/03/2017 18:44 Medications Medications Current Medications Acetaminophen (Tylenol Tab) 650 mg Q4H PRN PO pain/fever; Start 07/24/17 at 07 :00; Status Future Hold Famotidine 20 mg 20 mg BID IV Last administered on 08/04/17 08:50; Admin Dose 20 MG; Start 07/24/17 at 21:00 Acetaminophen 100 ml @ 400 mls/hr Q6H IVPB Last administered on 08/04/17 10: 59; Admin Dose 400 MLS/HR; Start 07/26/17 at 18:00 Ondansetron HCl/ Sodium Chloride (Zofran Inj/NS) 54 ml @ 216 mls/hr Q6H PRN IV NAUSEA AND/OR VOMITING Last administered on 08/04/17 06:43; Admin Dose 216 MLS/HR; Start 07/27/17 at 13:00 Phenol (Chloraseptic Throat [place]) 2 spray Q2H PRN MT SORE THROAT Last administered on 07/29/17 18:10; Admin Dose 2 SPRAY; Start 07/29/17 at 13:00 Hydromorphone HCl (Dilaudid) 0.5 mg Q3H PRN IV PAIN LEVEL 1-5 Last administered on 07/31/17 06:11; Admin Dose 0.5 MG; Start 07/30/17 at 10:30 Diphenhydramine HCl (Benadryl) 25 mg Q6H PRN IV SLEEP Last administered on 08/01 00:19; Admin Dose 25 MG; Start 07/31/17 at 13:00 Chlorpromazine (Thorazine) 10 mg Q6 PRN IM HICCUPS Last administered on 03:59; Admin Dose 10 MG; Start 08/02/17 at 06:00 Enoxaparin Sodium (Lovenox) 95 mg Q12 SC Last administered on 08/04/17 08:53; Admin Dose 95 MG; Start 08/02/17 at 13:00 Digoxin 125 mcg 125 mcg DAILY@13 IV Last administered on 08/03/17 18:39; Admin Dose 125 MCG; Start 08/03/17 at 17:30 Sodium Chloride (NS) 1,000 ml @ 75 mls/hr [id number] IV Last administered on 08/04 03:23; Admin Dose 50 MLS/HR; Start 08/03/17 at 18:00 Loratadine 10 mg 10 mg DAILY NGT Last administered on 08/04/17 09:32; Admin Dose 10 MG; Start 08/04/17 at 09:00 Meropenem/Sodium Chloride 50 ml @ 100 mls/hr Q8 IVPB ; Start 08/04/17 at 14:00 Vancomycin HCl 2 gm/Sodium Chloride 500 ml @ 125 mls/hr ONCE@13 IVPB ; Start 08/04/17 at 13:00; Stop 08/04/17 at 19:00 Vancomycin HCl/ Sodium Chloride (Vancocin/NS) 250 ml @ 83.333 mls/ hr Q24H IVPB ; Start 08/05/17 at 13:00 RAE CALVO Aug 04, 2017 12:07
[2017-08-04] MEDS: LEVALBUTEROL (NEB) 0.63 MG/3 ML AMP HHN PRN ×4 (12:35→23:04)
--- NOTE | 2017-08-04 12:42 | CONS ---
Date/Time of Note Date/Time of Note DATE: 08/04/17 TIME: 12:41 Assessment/Plan Assessment/Plan Additional Assessment/Plan Paroxysmal atrial fibrillation with rapid ventricular rates, currently sinus Low normal ejection fraction 50% Colon mass status post colon surgery July 26, 2017 SIRS Nausea and vomiting Dyspnea History of CHF History of hypertension -Patient with history of paroxysmal atrial fibrillation and currently back in sinus. Lung examination with no significant rales or rhonchi. Current oxygen saturation between 92-94% on nasal cannula. , consider PE workup if symptoms of dyspnea do not improve. CT negative for PE possible aspiration pneumonia Consultation Date/Type/Reason Admit Date/Time Jul 24, 2017 at 06:16 Initial Consult Date 07/29/17 Type of Consultation: cv 24 HR Interval Summary Free Text/Dictation short of breath Exam/Review of Systems Vital Signs Vitals Vital Signs Date Time Temp Pulse Resp B/P Pulse Ox O2 Delivery O2 Flow Rate FiO2 08/04/17 12:23 104 08/04/17 11:53 97.9 18 108/69 96 08/04/17 09:50 5.0 08/04/17 08:30 Nasal Cannula 08/03/17 18:02 40 Intake and Output 08/03/17 08/03/17 08/04/17 15:00 23:00 07:00 Intake Total 100 ml 1450 ml Output Total 1275 ml 1050 ml Balance -1175 ml 400 ml Results Result Diagram: 08/04/17 0538 08/04/17 0538 Results 24 hrs Laboratory Tests Test 08/03/17 13:01 08/03/17 14:35 08/04/17 05:00 08/04/17 05:38 Urine Color JEANNA Urine Clarity CLEAR Urine pH 5.0 Urine Specific [place] 1.034 H Urine Ketones NEGATIVE Urine Nitrite NEGATIVE Urine Bilirubin 1+ H Urine Urobilinogen 2+ H Urine Leukocyte Esterase NEGATIVE Urine Microscopic RBC 25 H Urine Microscopic WBC 6 H Urine Hemoglobin 1+ H Urine Glucose NEGATIVE Urine Total Protein 1+ H Lactic Acid Level 3.4 *H 3.6 *H B-Type Natriuretic Peptide 1260 H Blood Gas Specimen Source Blood arterial Arterial Blood Date Drawn 08/04/2017 5:10:58 AM Arterial Blood pH (Temp corrected) 7.506 H Arterial Blood pCO2 (Temp correct) 28.4 L Arterial Blood pO2 (Temp corrected) 69.5 L Arterial Blood HCO3 22.0 Arterial Blood Base Excess 0.2 Arterial Blood Oxygen Saturation 94.7 L Brian Test ACCEPTAB Arterial Blood Gas Puncture Site Right Radial Arterial Blood Carboxyhemoglobin 0.9 Arterial Blood Methemoglobin 0.2 Blood Gas A-a O2 Differential 154.2 H Oxyhemoglobin Percent 93.7 Total Hemoglobin 15.3 Blood Gas Temperature 37.0 Blood Gas Actual Respiration Rate 30 Blood Gas Modality NASAL CANNULA FiO2 36.0 Blood Gas Notified Whom Blood Gas Notified Time 08/04/2017 5:44:04 AM White Blood Count 17.5 H Red Blood Count 5.80 H Hemoglobin 14.2 Hematocrit 44.4 Mean Corpuscular Volume 76.6 L Mean Corpuscular Hemoglobin 24.5 L Mean Corpuscular Hemoglobin Concent 32.0 Red Cell Distribution Width 22.2 H Platelet Count 432 H Mean Platelet Volume 12.5 H Neutrophils % Segmented Neutrophils % (Manual) 50 Band Neutrophils % (Manual) 34 H Lymphocytes % Lymphocytes % (Manual) 5 L Monocytes % Monocytes % (Manual) 9 Eosinophils % Basophils % Metamyelocytes % (manual) 2 H Nucleated Red Blood Cells % 0.1 H Neutrophils # Neutrophils # (Manual) 9.8 H Band Neutrophils # 5.9 H Absolute Lymphocytes (Manual) 0.8 Lymphocytes # Monocytes # Absolute Monocytes (Manual) 1.5 H Eosinophils # Basophils # Metamyelocytes # 0.3 H Nucleated Red Blood Cells # Platelet Estimate NORMAL Giant Platelets 10 H Anisocytosis 1+ Microcytosis 1+ Sodium Level 135 Potassium Level 5.0 Chloride Level 99 Carbon Dioxide Level 23 Anion Gap 18 H Blood Urea Nitrogen 50 H Creatinine 1.42 H Glucose Level 115 Calcium Level 7.1 L Phosphorus Level 6.0 H Magnesium Level 2.4 Total Bilirubin 0.5 Direct Bilirubin 0.00 Indirect Bilirubin 0.5 Aspartate Amino Transf (AST/SGOT) 32 Alanine Aminotransferase (ALT/SGPT) 28 Alkaline Phosphatase 108 Total Protein 5.3 L Albumin 2.3 L Globulin 3.00 Albumin/Globulin Ratio 0.76 Medications Medications Current Medications Acetaminophen (Tylenol Tab) 650 mg Q4H PRN PO pain/fever; Start 07/24/17 at 07 :00; Status Future Hold Famotidine 20 mg 20 mg BID IV Last administered on 08/04/17t 08:50; Admin Dose 20 MG; Start 07/24/17 at 21:00 Acetaminophen 100 ml @ 400 mls/hr Q6H IVPB Last administered on 08/04/17 10: 59; Admin Dose 400 MLS/HR; Start 07/26/17 at 18:00 Ondansetron HCl/ Sodium Chloride (Zofran Inj/NS) 54 ml @ 216 mls/hr Q6H PRN IV NAUSEA AND/OR VOMITING Last administered on 08/04/17 06:43; Admin Dose 216 MLS/HR; Start 07/27/17 at 13:00 Phenol (Chloraseptic Throat [place]) 2 spray Q2H PRN MT SORE THROAT Last administered on 07/29/17 18:10; Admin Dose 2 SPRAY; Start 07/29/17 at 13:00 Hydromorphone HCl (Dilaudid) 0.5 mg Q3H PRN IV PAIN LEVEL 1-5 Last administered on 07/31/17 06:11; Admin Dose 0.5 MG; Start 07/30/17 at 10:30 Diphenhydramine HCl (Benadryl) 25 mg Q6H PRN IV SLEEP Last administered on 08/01 00:19; Admin Dose 25 MG; Start 07/31/17 at 13:00 Chlorpromazine (Thorazine) 10 mg Q6 PRN IM HICCUPS Last administered on 03:59; Admin Dose 10 MG; Start 08/02/17 at 06:00 Enoxaparin Sodium (Lovenox) 95 mg Q12 SC Last administered on 08/04/17 08:53; Admin Dose 95 MG; Start 08/02/17 at 13:00 Digoxin 125 mcg 125 mcg DAILY@13 IV Last administered on 08/03/17 18:39; Admin Dose 125 MCG; Start 08/03/17 at 17:30 Sodium Chloride (NS) 1,000 ml @ 75 mls/hr [id number] IV Last administered on 08/04 03:23; Admin Dose 50 MLS/HR; Start 08/03/17 at 18:00 Loratadine 10 mg 10 mg DAILY NGT Last administered on 08/04/17 09:32; Admin Dose 10 MG; Start 08/04/17 at 09:00 Meropenem/Sodium Chloride 50 ml @ 100 mls/hr Q8 IVPB ; Start 08/04/17 at 14:00 Vancomycin HCl 2 gm/Sodium Chloride 500 ml @ 125 mls/hr ONCE@13 IVPB ; Start 08/04/17 at 13:00; Stop 08/04/17 at 19:00 Vancomycin HCl/ Sodium Chloride (Vancocin/NS) 250 ml @ 83.333 mls/ hr Q24H IVPB ; Start 08/05/17 at 13:00 HEATHER GALLARDO MD Aug 04, 2017 12:42
[2017-08-04] MEDS ORDERED: VANCOMYCIN 2 GM in SOD CHLORIDE 0.9% 500 ML IVPB SCH (13:00)
[2017-08-04] MEDS: DIGOXIN 500 MCG INJ IV SCH (13:16)
[2017-08-04] MEDS ORDERED: IOHEXOL 14.3 MG(I)/ML (ADULT) BTL PO SCH (14:30)
[2017-08-04] MEDS: MEROPENEM 1 GM/50ML(PMX) 50 ML IVPB SCH ×2 (14:55→21:21)
[2017-08-04] MEDS: CHLORPROMAZINE 50 MG INJ IM PRN (21:21)
[2017-08-04] MEDS ORDERED: FUROSEMIDE 20 MG INJ IV ONE (23:30)
[2017-08-05] VITALS (25 sets, daily range): BP systolic 89–140; BP diastolic 52–89; PULSE 88–107; RESP 18–32
[2017-08-05] MEDS: LEVALBUTEROL (NEB) 0.63 MG/3 ML AMP HHN PRN ×3 (02:18→13:18)
[2017-08-05] MEDS: ONDANSETRON INJ 8 MG in SOD CHLORIDE 0.9% 50 ML IV PRN (03:50)
[2017-08-05] MEDS: ACETAMINOPHEN 1000MG/100ML IV 100 ML IVPB SCH ×2 (05:03→13:00)
[2017-08-05] MEDS: MEROPENEM 1 GM/50ML(PMX) 50 ML IVPB SCH (05:20)
[2017-08-05] MEDS: SOD CHLORIDE 0.9% 1,000 ML IV SCH ×2 (05:20→20:00)
--- NOTE | 2017-08-05 07:34 | PN ---
DATE: 08/04/2017 Status post laparotomy, left hemicolectomy for cancer of colon. The patient is in telemetry following discharge from ICU. SUBJECTIVE: No new events. The patient is feeling better than yesterday. Less tachypneic and less tachycardic OBJECTIVE: GENERAL: Alert, awake, oriented x3. VITAL SIGNS: Temperature 98.9. Heart rate 104, respirations 20. Blood pressure 108/69, saturation 97% on 5 liters of nasal cannula oxygen. I and O's: Total urine output within the past 24 hours 1075 mL. NG drainage 1250 mL in 24 hours since today in the morning at 6:00 till 1:00 p.m. has drained 600 mL of greenish fluid. ABDOMEN: Unchanged comparing to yesterday afternoon. EXTREMITIES: No chest x-ray today. LABORATORY DATA: WBC increased to 17,500 with 50% neutrophils and 34% bands. Yesterday's was 43% bands, slightly better today. Chemistry: Sodium, potassium normal. BUN 50, creatinine 1.42, high. Lactic acid yesterday was 3.4 to 3.6, calcium 7.1, phosphorus 6. Total protein 5.3, albumin 2.3. KUB today showed dilated small bowel in the right upper abdomen, unchanged compared to yesterday afternoon. No chest x-ray today. ASSESSMENT: A 51-year-old female status post laparotomy, extended left hemicolectomy for cancer of the left colon. The patient has had problem postoperatively and required to be transferred to ICU because of the heart rate and rhythm, eventually transferred out to the telemetry. Yesterday, the patient had tachycardia in the 130s, and tachypnea 40s, chest x-ray showed evidence of pneumonia and was started on antibiotics by Dr. Lora, the attending covering the patient. Kidney function slightly has deteriorated. Albumin is low. Considering the findings on the CT of his abdomen, a KUB, a dilated stomach and partial small-bowel obstruction, NG tube was inserted. At that time , 700 mL of greenish fluid was aspirated, and since then 500 mL more drained until morning, and since morning today 600. The drainage fluid has been drained. It appears that the abdominal tenderness is less, but she still is tender in the right upper quadrant and right side corresponding to the distended bowel loops. PLAN: Continue antibiotics. Continue NG tube. Continue Leal. Continue hydration per internal medicine, correct the kidney function. I think the patient needs some oncotic pressure, maybe some albumin. Will start the patient on TPN and discuss with the other doctors about it. We are going to do a CT scan of the abdomen and pelvis with Gastrografin tomorrow morning to find out what is the nature of this dilated small bowel loops and possibly complete obstruction. Plan discussed with Dr. Aldana and agrees with this plan. Dictated By: ILSA KAPLAN MD PS/VINNY Conf#: [id number] DID#: [id number] MTDD
--- NOTE | 2017-08-05 07:39 | PN ---
Date/Time of Note Date/Time of Note DATE: 08/05/17 TIME: 07:37 Assessment/Plan VTE Prophylaxis VTE Prophylaxis Intervention: SCD's Lines/Catheters IV Catheter Type (from Nrs): Peripheral IV Urinary Cath still in place: Yes Reason Cath still needed: urinary retention Assessment/Plan Chief Complaint/Hosp Course s/p lap converted to open extended left hemicolectomy for actively bleeding colon cancer with symptomatic anemia admitted through the ER emergently Problems: Assessment/Plan delayed return of bowel function with ileus CT scan for this morning to determine clinical course of whether need to have surgical intervention Subjective 24 Hr Interval Summary Free Text/Dictation NGT still with bilious output CT scan ordered today to evaluate Exam/Review of Systems Vital Signs Vitals Vital Signs Date Time Temp Pulse Resp B/P Pulse Ox O2 Delivery O2 Flow Rate FiO2 08/05/17 04:25 95 08/05/17 03:55 97.7 22 108/67 95 08/05/17 02:19 5.0 08/05/17 02:18 Nasal Cannula 08/03/17 18:02 40 Intake and Output 08/04/17 08/04/17 08/05/17 14:59 22:59 06:59 Intake Total 50 ml 704 ml Output Total 1200 ml 1750 ml Balance -1150 ml -1046 ml Exam midline and ruq abdominal tenderness, no peritoneal signs no rebound tenderness Results Result Diagram: 08/04/17 0538 08/04/17 0538 Medications Medications Current Medications Acetaminophen (Tylenol Tab) 650 mg Q4H PRN PO pain/fever; Start 07/24/17 at 07 :00; Status Future Hold Famotidine 20 mg 20 mg BID IV Last administered on 08/04/17 21:20; Admin Dose 20 MG; Start 07/24/17 at 21:00 Acetaminophen 100 ml @ 400 mls/hr Q6H IVPB Last administered on 08/05/17 05: 03; Admin Dose 400 MLS/HR; Start 07/26/17 at 18:00 Ondansetron HCl/ Sodium Chloride (Zofran Inj/NS) 54 ml @ 216 mls/hr Q6H PRN IV NAUSEA AND/OR VOMITING Last administered on 08/05/17 03:50; Admin Dose 216 MLS/HR; Start 07/27/17 at 13:00 Phenol (Chloraseptic Throat [place]) 2 spray Q2H PRN MT SORE THROAT Last administered on 07/29/17 18:10; Admin Dose 2 SPRAY; Start 07/29/17 at 13:00 Hydromorphone HCl (Dilaudid) 0.5 mg Q3H PRN IV PAIN LEVEL 1-5 Last administered on 07/31/17 06:11; Admin Dose 0.5 MG; Start 07/30/17 at 10:30 Diphenhydramine HCl (Benadryl) 25 mg Q6H PRN IV SLEEP Last administered on 08/01 00:19; Admin Dose 25 MG; Start 07/31/17 at 13:00 Chlorpromazine (Thorazine) 10 mg Q6 PRN IM HICCUPS Last administered on 21:21; Admin Dose 10 MG; Start 08/02/17 at 06:00 Enoxaparin Sodium (Lovenox) 95 mg Q12 SC Last administered on 08/04/17 21:20; Admin Dose 95 MG; Start 08/02/17 at 13:00 Digoxin 125 mcg 125 mcg DAILY@13 IV Last administered on 08/04/17 13:16; Admin Dose 125 MCG; Start 08/03/17 at 17:30 Sodium Chloride (NS) 1,000 ml @ 75 mls/hr [id number] IV Last administered on 08/05 05:20; Admin Dose 75 MLS/HR; Start 08/03/17 at 18:00 Loratadine 10 mg 10 mg DAILY NGT Last administered on 08/04/17 09:32; Admin Dose 10 MG; Start 08/04/17 at 09:00 Meropenem/Sodium Chloride 50 ml @ 100 mls/hr Q8 IVPB Last administered on 08/05 05:20; Admin Dose 100 MLS/HR; Start 08/04/17 at 14:00 Vancomycin HCl/ Sodium Chloride (Vancocin/NS) 250 ml @ 83.333 mls/ hr Q24H IVPB ; Start 08/05/17 at 13:00 Hilario BOTELLO Aug 05, 2017 07:39
--- NOTE | 2017-08-05 08:18 | PN ---
DATE: 08/03/2017 I am seeing this patient for Dr. Aldana. SUBJECTIVE: The patient is status post laparotomy and extended left hemicolectomy for cancer of the left colon which was done on 07/26. Today is postoperative day #8. The patient is in telemetry be cause of heart problem. Today, she was complaining of shortness of breath. OBJECTIVE: VITAL SIGNS: Heart rate is ____, respirations 40, tachypnea, saturation is 92% on nasal cannula oxygen. Temperature recorded 99.3. Blood pressure 103/74. The patient is tachypneic. HEART: Regular ____. ABDOMEN: Very distended. It is tender in right upper quadrant, epigastric area and right lower nayeli drant. Bowel sounds very hypoactive. LOWER EXTREMITIES: SCDs on the legs. No calf tenderness. LABORATORY DATA: Today, phosphorus is 5. Sodium, potassium normal. BUN and creatinine normal. Ca lcium 7.6. WBC increased to 15,500 with 38% neutrophils, 43% bands, hemoglobin 13.7, hematocrit 43. 7. No blood gas available today. No urinalysis today. ASSESSMENT: A 51-year-old female status post laparotomy, extended left hemicolectomy for bleeding l eft colon cancer. Postop, patient has been getting slightly complicated with problem with the heart of tachycardia, for a while was transferred to ICU, now transferred to telemetry. Today, patient i s very short of breath with heart rate 130s and respiratory rate 40s. She has leukocytosis with yary re shift to the left and bandemia. Abdomen is distended. Bowel sounds are very hypoactive. Last c hest x-ray was yesterday and KUB yesterday. Chest x-ray showed possible infiltration in the left nemo ng. A KUB showed possible small-bowel obstruction with distended small bowel loops. PLAN: 1. Repeat stat KUB and chest x-ray. 2. Discuss with Dr. Lora. I think we should start patient on antibiotics. 3. I think we should put NG tube for the patient. The patient of course is refusing. We are tryin g to convince her, especially when the KUB is done, if it still shows distended bowels with gas, def initely she has to have it done. 4. Monitoring of the heart rate. 5. Probably should do a lactic acid to see if the patient is in acidosis or not. Dr. Lora, interna l medicine, is covering the patient, also attended the patient as we discussed the options. Dictated By: ILSA KAPLAN MD PS/VINNY Conf#: [id number] DID#: [id number]
[2017-08-05] MEDS: FAMOTIDINE 20 MG INJ IV SCH (08:28)
[2017-08-05] MEDS: LORATADINE 10 MG TAB NGT SCH (08:30)
[2017-08-05] MEDS: HYDROmorphONE 0.5 MG/0.5 ML SYG IV PRN ×2 (09:04→14:33)
[2017-08-05 10:55] LABS: ABNORMAL IP MESSAGE 1; HEMATOCRIT 38.6 % (37.0-47.0); MEAN CORPUSCULAR HGB CONC 31.1 g/dl (32.0-37.0); NUCLEATED RED BLOOD CELLS% 0.1 /100WBC (0.0-0.0); PLATELET COUNT 499 10^3/UL (140-415); RED BLOOD COUNT 5.01 10^6/ul (4.20-5.40); RED CELL DISTRIBUTION WIDTH 22.8 % (11.5-14.5); WHITE BLOOD COUNT 20.8 10^3/ul (4.8-10.8)
--- NOTE | 2017-08-05 10:56 | PN ---
Date/Time of Note Date/Time of Note DATE: 08/05/17 TIME: 10:42 Assessment/Plan VTE Prophylaxis VTE Prophylaxis Intervention: SCD's Lines/Catheters IV Catheter Type (from Nrs): Peripheral IV Urinary Cath still in place: Yes Reason Cath still needed: urinary retention, other (indicate) (AK I, monitor urine output, urinary retention) Assessment/Plan Assessment/Plan 51 year old female with: 1. Respiratory distress, so far patient seems to have possible aspiration pneumonia versus healthcare associated pneumonia, also signs of volume overload on CAT scan. No pulmonary embolus. Nebulizer treatment helps a little bit, status post Lasix 20 mg 1 last night. On IV antibiotics, and gentle IV fluid hydration in setting of slightly elevated lactate and decreased renal function with elevated creatinine, however I did have to give a small dose of Lasix last night for episode of worsening respiratory distress. Follow-up labs today and will adjust fluids accordingly and/or diuresis 2. Atrial fibrillation, chronic, patient back in sinus rhythm, tachycardic still , 104. No nausea/vomiting today but patient does have a NG tube to suction with high output and indicative of ongoing ileus versus SBO. Continue amiodarone drip while not tolerating p.o. well yet, also on digoxin IV , appreciate cardiology recommendations. Discontinued Lovenox this morning in case patient needs surgical intervention, last dose was 9 PM yesterday. Electrolyte repletion as needed. 3. Status post Left hemicolectomy for sigmoid adenocarcinoma/mass POD#7, s/p total of 4 units pRBC since admission. Patient with KUB yesterday again showing early SBO, patient finally agreed to have an NG tube re-placed Saturday, There is relief of her distention and her nausea and vomiting. She does feel better today. Appreciate assistance from Dr. Mattson this weekend Still ongoing obstructive or ileus pattern clinically, CAT scan abdomen pelvis pending per Dr. Aldana and anticoagulation held in case patient needs to go to the OR. Follow-up labs this morning. Strict n.p.o. NPO On Dilaudid IV as needed for pain control, also on IV Tylenol [id number] for now. 4. Chronic congestive heart failure, chronic diastolic dysfunction and ejection fraction of 55% on latest outpatient echocardiogram in January 2017 and confirmed to be 50% on this admission. BNP elevated, we need to be careful with fluids, CAT scan of the chest did show some pleural effusion. Unfortunately with SIRS and signs of acute infection, patient's lactic acid has been elevated to 3.6 yesterday. Renal function has dropped yesterday, currently on IV fluids at 75 cc an hour with close monitoring. Status post Lasix 20 mg IV 1 last night. Monitor volume status. 5. Persistent leukocytosis with left shift and bandemia, afebrile, follow-up labs today post antibiotic adjustment yesterday. Monitor closely. 6. Acute kidney injury, noted yesterday, in setting of current clinical decompensation. Labs pending this morning to reevaluate ABG with no signs of acidosis, bicarb within normal. Depending on renal function, will decrease IV fluid rate or keep it the same. She did receive a dose of Lasix last night. Monitor respiratory status in the meantime closely along with urine output 7. Hypertension, antihypertensive resumed with holding parameters. 8. Hyperlipidemia: Resume home medications when able to take p.o. Prophylaxis: Off anticoagulation, SCDs, Pepcid for GI prophylaxis. Disposition: Heart rate and rhythm control, on amiodarone drip, antibiotic treatment, follow-up CAT scan abdomen and pelvis, follow-up respiratory status. Subjective 24 Hr Interval Summary Free Text/Dictation Patient still with ongoing ileus versus SBO, NG tube in place and to suction, bilious output still noted, CAT scan of the abdomen and pelvis ordered. Patient still in some respiratory distress, on nebulizer treatment started yesterday, given Lasix overnight 1, on 5 L nasal cannula seems to be a little more comfortable. Given possibility of surgical intervention if patient has significant SBO, Lovenox has been discontinued and her last dose was 9 PM yesterday. Labs pending this a.m. Exam/Review of Systems Vital Signs Vitals Vital Signs Date Time Temp Pulse Resp B/P Pulse Ox O2 Delivery O2 Flow Rate FiO2 08/05/17 09:13 5.0 08/05/17 08:30 92 08/05/17 07:59 97.4 18 140/65 95 08/05/17 02:18 Nasal Cannula 08/03/17 18:02 40 Intake and Output 08/04/17 08/04/17 08/05/17 15:00 23:00 07:00 Intake Total 50 ml 704 ml Output Total 1200 ml 1750 ml Balance -1150 ml -1046 ml Exam Constitutional: alert, oriented Respiratory: diminished breath sounds (At bases bilaterally), other (Congested bilaterally, atelectasis.) Cardiovascular: other ( Sinus tachycardia) Gastrointestinal: distended, soft, tender (Slight diffuse tenderness) Musculoskeletal: other (Mild lower extremity edema bilaterally) Extremities: normal pulses Neurological: [employer] II-XII intact, lethargic, nl mental status, nl speech Results Result Diagram: 08/04/1753708/04/17537 Medications Medications Current Medications Acetaminophen (Tylenol Tab) 650 mg Q4H PRN PO pain/fever; Start 07/24/17 at 07 :00; Status Future Hold Famotidine 20 mg 20 mg BID IV Last administered on 08/05/17 08:28; Admin Dose 20 MG; Start 07/24/17 at 21:00 Acetaminophen 100 ml @ 400 mls/hr Q6H IVPB Last administered on 08/05/17 05: 03; Admin Dose 400 MLS/HR; Start 07/26/17 at 18:00 Ondansetron HCl/ Sodium Chloride (Zofran Inj/NS) 54 ml @ 216 mls/hr Q6H PRN IV NAUSEA AND/OR VOMITING Last administered on 08/05/17 03:50; Admin Dose 216 MLS/HR; Start 07/27/17 at 13:00 Phenol (Chloraseptic Throat [place]) 2 spray Q2H PRN MT SORE THROAT Last administered on 07/29/17 18:10; Admin Dose 2 SPRAY; Start 07/29/17 at 13:00 Hydromorphone HCl (Dilaudid) 0.5 mg Q3H PRN IV PAIN LEVEL 1-5 Last administered on 08/05/17 09:04; Admin Dose 0.5 MG; Start 07/30/17 at 10:30 Diphenhydramine HCl (Benadryl) 25 mg Q6H PRN IV SLEEP Last administered on 08/01 00:19; Admin Dose 25 MG; Start 07/31/17 at 13:00 Chlorpromazine (Thorazine) 10 mg Q6 PRN IM HICCUPS Last administered on 21:21; Admin Dose 10 MG; Start 08/02/17 at 06:00 Digoxin 125 mcg 125 mcg DAILY@13 IV Last administered on 08/04/17 13:16; Admin Dose 125 MCG; Start 08/03/17 at 17:30 Sodium Chloride (NS) 1,000 ml @ 75 mls/hr [id number] IV Last administered on 08/05 05:20; Admin Dose 75 MLS/HR; Start 08/03/17 at 18:00 Loratadine 10 mg 10 mg DAILY NGT Last administered on 08/04/17 09:32; Admin Dose 10 MG; Start 08/04/17 at 09:00 Meropenem/Sodium Chloride 50 ml @ 100 mls/hr Q8 IVPB Last administered on 08/05 05:20; Admin Dose 100 MLS/HR; Start 08/04/17 at 14:00 Vancomycin HCl/ Sodium Chloride (Vancocin/NS) 250 ml @ 83.333 mls/ hr Q24H IVPB ; Start 08/05/17 at 13:00 RAE CALVO Aug 05, 2017 10:52
[2017-08-05] MEDS ORDERED: SOD CHLORIDE 0.9% 100 ML ONE (10:59)
[2017-08-05] MEDS ORDERED: IOHEXOL 300MG/ML 150 ML BTL ONE (10:59)
[2017-08-05 11:13] LABS: POSITIVE DIFF @See below
[2017-08-05 11:20] LABS: ALBUMIN 2.3 g/dl (3.3-4.9); ALBUMIN/GLOBULIN RATIO 0.76; BILIRUBIN,INDIRECT 0.2 mg/dl (0-1.1); BILIRUBIN,TOTAL 0.2 mg/dl (0.2-1.3); CALCIUM 6.6 mg/dl (8.4-10.2); TOTAL PROTEIN 5.3 g/dl (6.1-8.1)
[2017-08-05 11:34] LABS: CREATININE 2.42 mg/dl (0.44-1.00); POTASSIUM 5.4 mmol/L (3.5-5.1)
[2017-08-05 11:35] LABS: MAGNESIUM 2.6 mg/dl (1.7-2.5); PHOSPHORUS 8.1 mg/dl (2.5-4.9)
--- NOTE | 2017-08-05 12:01 | RADRPT ---
PROCEDURE: CT abdomen and pelvis with contrast. CLINICAL INDICATION: abdominal pain TECHNIQUE: CT scan of the abdomen and pelvis with contrast [facility] The patient was scanned after administration of 100 cc of Omnipaque-300 intravenous contrast. Oral contrast was also administered. Sagittal and coronal reformatted images were obtained from th e axial source images. One or more of the following dose reduction techniques were used: - Automated exposure control. - Adjustment of the mA and/or kV according to patient size. - Use of iterative reconstruction technique. DLP 1360.9 mGycm. CTDIvol 21.1 mGy COMPARISON: Chest CT 08/03/2017 FINDINGS: There is a layering small to moderate left-sided pleural effusion which appears overall stable from prior exam with a trace right-sided pleural effusion also stable. A gastric catheter extends into th e body of the stomach. There is a trace amount of pericardial fluid present which is stable. Surgical changes are seen from an anastomosis of the descending colon and there is localized extralu kash bowel gas seen directly adjacent to the anastomosis with layering debris seen external to the colon along the left pericolic gutter. There is a moderate amount of multiloculated fluid seen throu ghout the abdomen and pelvis with air-fluid levels present. For example there is a left anterior abd ominal collection that measures up to 17 x 4.8 cm on series 3, image 117. There is a collection seen in the gastrohepatic space that measures up to 16.7 x 10.2 cm on series 3, image 56. There is a sub hepatic collection that measures up to 6.2 x 6.8 cm abdomen 77 with several other smaller areas of loculated fluid with rim enhancement of the collections along with enhancement of the peritoneum. Di ffuse mesenteric fat stranding is seen around the areas of loculated fluid. In addition, there is pr onounced wall thickening and edema is seen of the entirety of the distal ileum. There is no evidence of a complete obstruction however there is dilatation of the proximal small bowel with air- fluid levels. Contrast is seen to extend throughout the small bowel and into the ascending colon. Th e appendix is not visualized. Postsurgical changes of the laparotomy are present. There are numerous nonenlarged lymph node seen scattered in the mesentery and retroperitoneum. There are numerous air bubbles seen within scattered loculated collections within the peritoneum. Leal catheter seen in the bladder which is decompressed. Mild anasarca is seen involving the subcut aneous fat. There is a slightly scalloped appearance of portions of the hepatic margin secondary to adjacent flu id collections with no intraparenchymal abnormality of the liver. The gallbladder is distended witho ut visible surrounding inflammation in the portal vein is intact without thrombus. Subcapsular collections are seen around the spleen and a splenic parenchyma is otherwise unremarkabl e. There is no retroperitoneal abscess present. The adrenal glands are within normal limits without mass. The kidneys enhance symmetrically bilater ally without hydronephrosis or perinephric stranding. The pancreas is unremarkable without focal lesion or surrounding inflammatory changes. The aorta is unremarkable and there is no acute osseous abnormality. Degenerative changes are seen w ithin the lumbar spine. The pelvic organs are not visualized. IMPRESSION: There are findings consistent with a leak at the anastomosis of the colon with adjacent localized ex traperitoneal air and debris seen beyond the margin of the colon and layering along the left pericol ic gutter. In addition there are findings suggestive for peritonitis with peritoneal enhancement rosa ng with numerous loculated fluid collections with air bubbles and air-fluid levels consistent with m ultiple abscesses seen diffusely throughout the intraperitoneal space. There is pronounced inflammation of the distal ileum with wall thickening and edema and adjacent fat stranding and this could represent infectious, inflammatory, or ischemic ileitis. Proximal dilated loops of small bowel are seen and contrast is seen to extend through the entirety of the small bowel to the colon. There is no evidence of a complete obstruction however the presence of a partial obst ruction suspected. Bilateral pleural effusions are stable. Anasarca. RPTAT: AA .Leandro Gaytan MD, MD Date Time Electronically viewed and signed by .Leandro Gaytan MD, MD on 08/05/2017 12:01 .[place]/
[2017-08-05 12:43] LABS: ANISOCYTOSIS 1+ (0-0); EOSINOPHILS % (M) 1 % (0-7); METAMYELOCYTES %M 2 % (0-0); MONOCYTES % (M) 8 % (0-11); MYELOCYTES % (M) 1 % (0-0); PLATELET ESTIMATE NORMAL; POIKILOCYTOSIS 3+ (0-0); POLYCHROMASIA 3+ (0-0)
[2017-08-05 12:46] LABS: INR 1.34; PROTIME 16.7 Sec (12.2-14.2); PT RATIO 1.3
[2017-08-05 12:47] LABS: PARTIAL THROMBOPLASTIN TIME 32.6 Sec (25.0-35.0)
[2017-08-05] MEDS ORDERED: VANCOMYCIN 1.5 GM in SOD CHLORIDE 0.9% 250 ML IVPB SCH (13:00)
[2017-08-05] MEDS: DIGOXIN 500 MCG INJ IV SCH (13:02)
[2017-08-05] MEDS ORDERED: SOD CHLORIDE 0.9% 250 ML IV* ONE (13:11)
--- NOTE | 2017-08-05 14:11 | CONS ---
Date/Time of Note Date/Time of Note DATE: 08/05/17 TIME: 14:08 Assessment/Plan Assessment/Plan Additional Assessment/Plan Paroxysmal atrial fibrillation with rapid ventricular rates, currently sinus Low normal ejection fraction 50% Colon mass status post colon surgery July 26, 2017 Acute kidney injury Sepsis Dyspnea History of hypertension -will DC IV digoxin given acutely worsening renal function. Patient planned to return to the operating room today given CT abdomen findings. Patient currently remains in sinus rhythm, IV amiodarone as needed for recurrent episodes of atrial fibrillation. Consultation Date/Type/Reason Admit Date/Time Jul 24, 2017 at 06:16 Initial Consult Date 07/29/17 Type of Consultation: cv 24 HR Interval Summary Free Text/Dictation Patient without palpitations, chest pain, having intermittent shortness of breath but overall better. Exam/Review of Systems Vital Signs Vitals Vital Signs Date Time Temp Pulse Resp B/P Pulse Ox O2 Delivery O2 Flow Rate FiO2 08/05/17 13:19 91 30 95 Nasal Cannula 5.0 08/05/17 11:33 98.4 118/60 08/03/17 18:02 40 Intake and Output 08/04/17 08/04/17 08/05/17 15:00 23:00 07:00 Intake Total 50 ml 704 ml Output Total 1200 ml 1750 ml Balance -1150 ml -1046 ml Exam Mildly dyspneic, has NG tube, receiving breathing treatments Constitutional: alert, oriented Head: normocephalic Respiratory: other (Coarse breath sounds bilaterally, no wheezing) Cardiovascular: other (s1s2), regular rate and rhythm Gastrointestinal: bowel sounds (Present), distended Extremities: other (No significant edema) Results Result Diagram: 08/05/17 1040 08/05/17 1040 Results 24 hrs Laboratory Tests Test 08/05/17 10:40 08/05/17 11:47 White Blood Count 20.8 H Red Blood Count 5.01 Hemoglobin 12.0 Hematocrit 38.6 Mean Corpuscular Volume 77.0 L Mean Corpuscular Hemoglobin 24.0 L Mean Corpuscular Hemoglobin Concent 31.1 L Red Cell Distribution Width 22.8 H Platelet Count 499 H Mean Platelet Volume 12.0 H Neutrophils % Segmented Neutrophils % (Manual) 46 Band Neutrophils % (Manual) 34 H Lymphocytes % Lymphocytes % (Manual) 9 L Monocytes % Monocytes % (Manual) 8 Eosinophils % Eosinophils % (Manual) 1 Basophils % Metamyelocytes % (manual) 2 H Myelocytes % (Manual) 1 H Nucleated Red Blood Cells % 0.1 H Neutrophils # Neutrophils # (Manual) 11.0 H Band Neutrophils # 7.0 H Absolute Lymphocytes (Manual) 1.8 Lymphocytes # Monocytes # Absolute Monocytes (Manual) 1.6 H Eosinophils # Basophils # Metamyelocytes # 0.4 H Myelocytes # 0.2 H Nucleated Red Blood Cells # Platelet Estimate NORMAL Polychromasia 3+ Poikilocytosis 3+ Anisocytosis 1+ Sodium Level 134 L Potassium Level 5.4 H Chloride Level 99 Carbon Dioxide Level 20 L Anion Gap 20 H Blood Urea Nitrogen 81 #H Creatinine 2.42 #H Glucose Level 91 Lactic Acid Level 2.0 Calcium Level 6.6 L Phosphorus Level 8.1 #H Magnesium Level 2.6 H Total Bilirubin 0.2 Direct Bilirubin 0.00 Indirect Bilirubin 0.2 Aspartate Amino Transf (AST/SGOT) 41 Alanine Aminotransferase (ALT/SGPT) 30 Alkaline Phosphatase 105 Total Protein 5.3 L Albumin 2.3 L Globulin 3.00 Albumin/Globulin Ratio 0.76 Prothrombin Time 16.7 #H Prothrombin Time Ratio 1.3 INR International Normalized Ratio 1.34 Activated Partial Thromboplast Time 32.6 Medications Medications Current Medications Acetaminophen 650 mg 650 mg Q4H PRN PO pain/fever; Start 07/24/17 at 07:00; Status Future Hold Acetaminophen 100 ml @ 400 mls/hr Q6H IVPB Last administered on 08/05/17 13: 00; Admin Dose 400 MLS/HR; Start 07/26/17 at 18:00 Ondansetron HCl/ Sodium Chloride (Zofran Inj/NS) 54 ml @ 216 mls/hr Q6H PRN IV NAUSEA AND/OR VOMITING Last administered on 08/05/17 03:50; Admin Dose 216 MLS/HR; Start 07/27/17 at 13:00 Phenol (Chloraseptic Throat [place]) 2 spray Q2H PRN MT SORE THROAT Last administered on 07/29/17 18:10; Admin Dose 2 SPRAY; Start 07/29/17 at 13:00 Hydromorphone HCl (Dilaudid) 0.5 mg Q3H PRN IV PAIN LEVEL 1-5 Last administered on 08/05/17 09:04; Admin Dose 0.5 MG; Start 07/30/17 at 10:30 Diphenhydramine HCl (Benadryl) 25 mg Q6H PRN IV SLEEP Last administered on 08/01 00:19; Admin Dose 25 MG; Start 07/31/17 at 13:00 Chlorpromazine (Thorazine) 10 mg Q6 PRN IM HICCUPS Last administered on 21:21; Admin Dose 10 MG; Start 08/02/17 at 06:00 Digoxin 125 mcg 125 mcg DAILY@13 IV Last administered on 08/05/17 13:02; Admin Dose 125 MCG; Start 08/03/17 at 17:30 Sodium Chloride (NS) 1,000 ml @ 75 mls/hr [id number] IV Last administered on 08/05 05:20; Admin Dose 75 MLS/HR; Start 08/03/17 at 18:00 Loratadine (Claritin) 10 mg DAILY NGT Last administered on 08/04/17 09:32; Admin Dose 10 MG; Start 08/04/17 at 09:00 Famotidine 20 mg 20 mg DAILY IV ; Start 08/06/17 at 09:00 Meropenem/Sodium Chloride (Merrem 500mg/50 ml(Pmx)) 50 ml @ 100 mls/hr Q12 IVPB ; Start 08/05/17 at 21:00 Fercho Mojica DO Aug 05, 2017 14:11
[2017-08-05] MEDS ORDERED: ROCURONIUM 50 MG INJ ONE ×2 (17:26→19:18)
[2017-08-05] MEDS ORDERED: MIDAZOLAM 1 MG/ML 2 ML INJ ONE (17:26)
[2017-08-05] MEDS ORDERED: ETOMIDATE 20 MG INJ ONE (17:26)
[2017-08-05] MEDS ORDERED: METOCLOPRAMIDE 10 MG INJ ONE (17:26)
[2017-08-05] MEDS ORDERED: SUCCINYLCHOLINE CHLORIDE 100 MG/5 ML SYG IV ONE (17:26)
[2017-08-05] MEDS ORDERED: FENTAnyl 50 MCG/ML VIAL ONE (17:26)
[2017-08-05] MEDS ORDERED: ROPIVACAINE 0.5 % 30 ML VIAL ONE (17:39)
[2017-08-05] MEDS ORDERED: DEXAMETHASONE 4 MG/ML 1 ML INJ ONE (17:42)
[2017-08-05] MEDS ORDERED: ONDANSETRON 4 MG INJ ONE (17:43)
[2017-08-05] MEDS ORDERED: EPHEDrine SULFATE 50 MG/5 ML SYG ONE ×2 (18:01→19:18)
[2017-08-05] MEDS ORDERED: PHENYLephrine (100 MCG/ML) 5ML SYG ONE ×3 (18:02→19:18)
[2017-08-05] MEDS ORDERED: ALBUMIN HUMAN 5% 250 ML ONE (19:23)
[2017-08-05] MEDS ORDERED: SOD CHLORIDE 0.9% 1,000 ML IV SCH (19:47)
[2017-08-05] MEDS ORDERED: HYDROmorphONE 0.5 MG/0.5 ML SYG IV PRN (20:00)
[2017-08-05] MEDS ORDERED: PROPOFOL 100 ML ONE (20:48)
[2017-08-05] MEDS: MEROPENEM 500MG/50 ML (PMX) 50 ML IVPB SCH (21:00)
[2017-08-05] MEDS ORDERED: CIPROFLOXACIN 400MG/D5W 200 ML IVPB SCH (21:00)
[2017-08-05] MEDS ORDERED: CIPROFLOXACIN 400MG/D5W 200 ML ONE (21:29)
[2017-08-05] MEDS ORDERED: morphine 2 MG INJ ONE (21:45)
[2017-08-05] MEDS ORDERED: SODIUM CHLORIDE 0.9% 500 ML BAG IV SCH (22:00)
[2017-08-05] MEDS ORDERED: ALBUMIN HUMAN 25% 100 ML INJ IV SCH (22:00)
[2017-08-05] MEDS: metroNIDAZOLE 500 MG/NS (PMX) 100 ML IVPB SCH (22:00)
[2017-08-05 22:47] LABS: ABNORMAL IP MESSAGE 1; HEMATOCRIT 30.7 % (37.0-47.0); HEMOGLOBIN 9.7 g/dl (12.0-16.0); MEAN CORPUSCULAR HEMOGLOBIN 25.2 pg (29.0-33.0); MEAN CORPUSCULAR HGB CONC 31.6 g/dl (32.0-37.0); MEAN CORPUSCULAR VOLUME 79.7 fl (82.0-101.0); MEAN PLATELET VOLUME 11.7 fl (7.4-10.4); NUCLEATED RED BLOOD CELLS% 0.2 /100WBC (0.0-0.0); PLATELET COUNT 430 10^3/UL (140-415); RED BLOOD COUNT 3.85 10^6/ul (4.20-5.40); RED CELL DISTRIBUTION WIDTH 22.5 % (11.5-14.5); WHITE BLOOD COUNT 19.5 10^3/ul (4.8-10.8)
[2017-08-05 22:52] LABS: POSITIVE DIFF @See below
--- NOTE | 2017-08-05 22:57 | CONS ---
Date/Time of Note Date/Time of Note DATE: 08/05/17 TIME: 22:48 Assessment/Plan Assessment/Plan Additional Assessment/Plan 1. Oliguric EJ due to ATN from Shock- Multifactorial septic from peritonitis + Hemorrhagic 2. Acute hyperkalemia due to EJ 3. Metabolic acidosis with lactic acidosis 4. acute resp failure, possible Asp PNA vs HCAP - pt remained on ventilator post operatively 5. Septic shock on levophed 6. Status post Left hemicolectomy for sigmoid adenocarcinoma/mass POD#7, s/p total of 4 units pRBC since admission. Patient with KUB yesterday again showing early SBO,- again s/p Exp laparotomy today 7. Atrial fibrillation 8. Chornic diastolic CHF with EF 55% Plan: Pt is on ventilator Urine output dropped down to 10 cc/hr currenlty on Levophed gtt at 4 mcg BP systolic in 90s will give IV albumin 25% 100ml IV x 1 followed up by NS 500cc bolus x 1 followed up by Lasix 40mg iV X 1 Renal US Critically ill if not improvent in HCo3, urine output in AM, then we will discuss with family about HD option for short time untils he recovers from Other issues. Consultation Date/Type/Reason Admit Date/Time Jul 24, 2017 at 06:16 Date of Consultation: Aug 05, 2017 Type of Consultation: NEPHROLOGY Reason for Consultation Oliguric Acute kidney injury, Hyperkalemia,severe metabolic acidosis Referring Provider: RAE CALVO Hx of Present Illness - Please note that pt is seen today at 4 pm but [employer] system was down until 9 pm 51-year-old female with previous history of congestive heart failure, paroxysmal atrial fibrillation, hyperlipidemia, recently diagnosed sigmoid adenocarcinoma that required hemicolectomy apparently, presented to the emergency department with rectal bleeding, abdominal pain, shortness of breath, dizziness and a severe anemia with a hemoglobin of 6.6. - She underwent laparoscopic converted to open extended left hemicolectomy, mobilization of splenic flexure, laparoscopic lysis of adhesions [address]Bae Sanchez on . her postoperative course was complicated by Anastomic leak with peritonitis, she is noted to have Cr normal on admission which bumped to 1.42 on 08/04 and today bumped to 2.42 associated with Hyperkalemia and oliguria. she Underwent another Surgery by Gen surgery today, she remained intubated postoperatively, On low dose levophed and pt urine output dropped down to 10 cc/ hr Renal has been consulted for Oliguric EJ, Hyperkalemia and severe metaboilc acidosis. Subjective hx not possible: pt critical Eyes: no complaints ENT: no complaints Respiratory: other (Dyspnea on exertion) Genitourinary: no complaints Musculoskeletal: no complaints Skin: no complaints Neurologic: no complaints Lymphatic: no complaints Psychological: no complaints Past Medical History Medical History: congestive heart failure, hypertension Past Surgical History Past Surgical Hx: other (S/p Surgery for colon CA ) Family History Significant Family History: other (Not available ) Social History Alcohol Use: none Smoking Status: Former smoker (Quit 20 years ago) Drug Use: marijuana (Patient was a daily marijuana user but quit 100 days ago ) Exam/Review of Systems Vital Signs Vitals Vital Signs Date Time Temp Pulse Resp B/P Pulse Ox O2 Delivery O2 Flow Rate FiO2 08/05/17 20:58 5.0 08/05/17 20:30 102 23 98 50 08/05/17 15:24 98.4 121/60 08/05/17 13:19 Nasal Cannula Intake and Output 08/04/17 08/04/17 08/05/17 15:00 23:00 07:00 Intake Total 50 ml 704 ml Output Total 1200 ml 1750 ml Balance -1150 ml -1046 ml Exam Constitutional: non-verbal, other (Intubaed sedated on ventilator ) Neck: supple Respiratory: crackles/rales, diminished breath sounds, other (Bilateral corase BS+) Cardiovascular: other (Tachycardia ) Gastrointestinal: distended, tender Musculoskeletal: muscle weakness, swelling Extremities: normal pulses Neurological: other (sedated on ventilator, uncooperative for exam ) Lymph: nl lymph nodes Results Result Diagram: 08/05/17 1040 08/05/17 1040 Results 24 hrs Laboratory Tests Test 08/05/17 10:40 08/05/17 11:47 08/05/17 22:40 White Blood Count 20.8 H Pending Red Blood Count 5.01 Pending Hemoglobin 12.0 Pending Hematocrit 38.6 Pending Mean Corpuscular Volume 77.0 L Pending Mean Corpuscular Hemoglobin 24.0 L Pending Mean Corpuscular Hemoglobin Concent 31.1 L Pending Red Cell Distribution Width 22.8 H Pending Platelet Count 499 H Pending Mean Platelet Volume 12.0 H Pending Neutrophils % Segmented Neutrophils % (Manual) 46 Band Neutrophils % (Manual) 34 H Lymphocytes % Lymphocytes % (Manual) 9 L Monocytes % Monocytes % (Manual) 8 Eosinophils % Eosinophils % (Manual) 1 Basophils % Metamyelocytes % (manual) 2 H Myelocytes % (Manual) 1 H Nucleated Red Blood Cells % 0.1 H Neutrophils # Neutrophils # (Manual) 11.0 H Band Neutrophils # 7.0 H Absolute Lymphocytes (Manual) 1.8 Lymphocytes # Monocytes # Absolute Monocytes (Manual) 1.6 H Eosinophils # Basophils # Metamyelocytes # 0.4 H Myelocytes # 0.2 H Nucleated Red Blood Cells # Platelet Estimate NORMAL Polychromasia 3+ Poikilocytosis 3+ Anisocytosis 1+ Sodium Level 134 L Potassium Level 5.4 H Chloride Level 99 Carbon Dioxide Level 20 L Anion Gap 20 H Blood Urea Nitrogen 81 #H Creatinine 2.42 #H Glucose Level 91 Lactic Acid Level 2.0 Calcium Level 6.6 L Phosphorus Level 8.1 #H Magnesium Level 2.6 H Total Bilirubin 0.2 Direct Bilirubin 0.00 Indirect Bilirubin 0.2 Aspartate Amino Transf (AST/SGOT) 41 Alanine Aminotransferase (ALT/SGPT) 30 Alkaline Phosphatase 105 Total Protein 5.3 L Albumin 2.3 L Globulin 3.00 Albumin/Globulin Ratio 0.76 Prothrombin Time 16.7 #H Prothrombin Time Ratio 1.3 INR International Normalized Ratio 1.34 Activated Partial Thromboplast Time 32.6 Medications Medications Current Medications Acetaminophen 650 mg 650 mg Q4H PRN PO pain/fever; Start 07/24/17 at 07:00; Status Future Hold Acetaminophen 100 ml @ 400 mls/hr Q6H IVPB Last administered on 08/05/17 13: 00; Admin Dose 400 MLS/HR; Start 07/26/17 at 18:00 Ondansetron HCl/ Sodium Chloride (Zofran Inj/NS) 54 ml @ 216 mls/hr Q6H PRN IV NAUSEA AND/OR VOMITING Last administered on 08/05/17 03:50; Admin Dose 216 MLS/HR; Start 07/27/17 at 13:00 Phenol (Chloraseptic Throat Elora) 2 spray Q2H PRN MT SORE THROAT Last administered on 07/29/17 18:10; Admin Dose 2 SPRAY; Start 07/29/17 at 13:00 Diphenhydramine HCl (Benadryl) 25 mg Q6H PRN IV SLEEP Last administered on 08/01 00:19; Admin Dose 25 MG; Start 07/31/17 at 13:00 Chlorpromazine 10 mg 10 mg Q6 PRN IM HICCUPS Last administered on 08/04/17 21: 21; Admin Dose 10 MG; Start 08/02/17 at 06:00 Sodium Chloride (NS) 1,000 ml @ 120 mls/hr Q8H20M IV Last administered on 08/05 05:20; Admin Dose 75 MLS/HR; Start 08/03/17 at 18:00 Loratadine (Claritin) 10 mg DAILY NGT Last administered on 08/04/17 09:32; Admin Dose 10 MG; Start 08/04/17 at 09:00 Famotidine 20 mg 20 mg DAILY IV ; Start 08/06/17 at 09:00 Meropenem/Sodium Chloride (Merrem 500mg/50 ml(Pmx)) 50 ml @ 100 mls/hr Q12 IVPB ; Start 08/05/17 at 21:00 Miscellaneous Information (*Rx Drug Level Order Reminder*) VANCO RANDOM LEVEL... ONCE ONCE XX ; Start 08/06/17 at 05:00; Stop 08/06/17 at 05:01 Pantoprazole 40 mg 40 mg DAILY@06 IV ; Start 08/06/17 at 06:00 Sodium Chloride 1,000 ml @ 120 mls/hr Q8H20M IV ; Start 08/05/17 at 19:47 Ciprofloxacin/ Dextrose 200 ml @ 200 mls/hr Q24H IVPB ; Start 08/05/17 at 21:00 Metronidazole (Flagyl 500 Mg (Pmx)) 100 ml @ 100 mls/hr Q8 IVPB ; Start at 22:00 Sodium Chloride (NS) 500 ml ONCE IV ; Start 08/05/17 at 22:00; Stop 08/05/17 at 23:59 Furosemide (Lasix) 40 mg ONCE IV ; Start 08/05/17 at 23:00; Stop 08/05/17 at 23: 01 Hydromorphone HCl (Dilaudid) 0.5 mg Q2H PRN IV PAIN; Start 08/05/17 at 22:30 MEKA ROBERTSON MD Aug 05, 2017 22:57
[2017-08-05] MEDS ORDERED: FUROSEMIDE 40 MG INJ IV SCH (23:00)
[2017-08-05 23:05] LABS: ALBUMIN 2.3 g/dl (3.3-4.9); ALBUMIN/GLOBULIN RATIO 0.92; BILIRUBIN,INDIRECT 0.2 mg/dl (0-1.1); BILIRUBIN,TOTAL 0.2 mg/dl (0.2-1.3); CALCIUM 6.4 mg/dl (8.4-10.2); POTASSIUM 5.4 mmol/L (3.5-5.1); TOTAL PROTEIN 4.8 g/dl (6.1-8.1)
[2017-08-05 23:15] LABS: CREATININE 2.52 mg/dl (0.44-1.00)
[2017-08-06] VITALS (69 sets, daily range): BP systolic 105–146; BP diastolic 46–78; PULSE 82–94; RESP 19–33
[2017-08-06] MEDS: PROPOFOL 100 ML IV SCH ×5 (00:18→20:24)
[2017-08-06] MEDS: ACETAMINOPHEN 1000MG/100ML IV 100 ML IVPB SCH ×4 (00:23→17:55)
[2017-08-06 00:41] LABS: BASOPHIL # 0.1 10^3/ul (0.0-0.1); BASOPHILS % 0.4 % (0.0-2.0); EOSINOPHILS % 0.1 % (0.0-7.0); LYMPHOCYTES # 1.2 10^3/ul (0.8-2.9); LYMPHOCYTES % 5.9 % (15.0-51.0); MONOCYTE # 0.7 10^3/ul (0.3-0.9); MONOCYTES % 3.6 % (0.0-11.0); NEUTROPHIL # 15.8 10^3/ul (1.6-7.5); NEUTROPHILS % 81.1 % (39.0-77.0)
[2017-08-06] MEDS: SOD CHLORIDE 0.9% 1,000 ML IV SCH ×3 (02:21→20:24)
--- NOTE | 2017-08-06 04:54 | RADRPT ---
PROCEDURE: XR Chest. CLINICAL INDICATION: Ventilated patient with dyspnea and congestive heart failure. TECHNIQUE: Single frontal view of the chest COMPARISON: 03/10/2014. FINDINGS: Endotracheal intubation is seen, new over the interval. The tip is about 47 mm above the tessie. New nasogastric tube is seen with tip and side port in the proximal stomach. New right central venous l ine in place with tip in the superior vena cava. Cardiomegaly again seen. Decreased lung inflation over interval. New left pleural effusion with left lung base atelectasis versus airspace disease. The right lung is clear, given degree of hypoinflati on. No signs of pneumothorax are seen. The osseous structures and soft tissues are unremarkable. IMPRESSION: 1. New endotracheal intubation is seen with tip about 46 mm above the tessie. 2. New nasogastric tube in place with tip and side port in the proximal stomach. 3. New right central venous line in place with tip in the superior vena cava. 4. New small left pleural effusion with left lung base atelectasis. RPTAT: [facility] Physician Spike Date Time Electronically viewed and signed by Physician Spike on 08/06/2017 04:54 RS/
--- NOTE | 2017-08-06 05:00 | OPR ---
DATE OF OPERATION: 08/05/2017 INDICATION: This is a 51-year-old female who presented to the ER with bleeding colon cancer with symptomatic anemia. She was urgently taken to the OR for colonic resection with primary anastomosis. Her postoperative course was complicated by her AFib acting up with rapid ventricular response and episodes of hypotension. Initially, postoperatively she did well, was passing flatus and was advanced clears. However, approximately a week out she developed some abdominal pain and fevers and her white blood cell count went from normal to increased up to 17. She was evaluated with abdominal x-rays and CT scan which was concerning for abdominal leak. She was not on any pressors at that time. She was taken to the OR for exploration and possible bowel resection and possible colostomy. PREOPERATIVE DIAGNOSES: Sepsis anastomotic leak, bleeding colon cancer, atrial fibrillation. POSTOPERATIVE DIAGNOSES: Sepsis anastomotic leak, bleeding colon cancer, atrial fibrillation. OPERATION PERFORMED: 1. Exploratory laparotomy with intra-abdominal abscess drainage. 2. Placement of percutaneous Maurisio drains #19 x2. 3. Partial colectomy. 4. Formation of end colostomy with Corona's pouch. SURGEON: Daniel Aldana MD SPECIMEN: Wound culture proximal transverse colon and distal sigmoid colon stump. ESTIMATED BLOOD LOSS: 150 mL. ANESTHESIA: General. PROCEDURE: The patient was taken to the OR and prepped and draped in the usual sterile fashion. Surgical timeout was performed. IV antibiotics were given. Midline pierre were removed. The midline incision was removed. Wound culture was taken of the wound as there was a small abscess in the wound. The opening of the fascia revealed a large purulent pocket. Irrigation was performed copiously to clean out thoroughly the intra-abdominal cavity with warm irrigation. Multiple liters of fluid was used to irrigate copiously. The small bowel was run from ligament of Treitz to the right cecum. There was no evidence of any perforation. However, the small bowel was dilated and there were focal areas of discoloration. Further examination of the anastomosis showed partial disruption of the anastomosis with the omental wrap in place. The omental wrap was opened for examination and a disruption in the anastomosis was appartent. Additionally, there was hardened fecalith at the point of anastomosis which was impacted both proximally and distally. The stool was cleaned out and sent for specimen. The distal stump which was at the rectosigmoid junction was closed with interrupted silk and stapled off with a 75 blue load VENKAT stapler. The stump was then marked with a 2-0 Prolene for future identification. The transverse colon was partially resected and sent for specimen. The blood supply to the transverse colon was very good. The mucosa was pink. Colostomy was sutured in the right upper quadrant by first marking the disk portion of skin that was excised. Dissection cautery was carried down to the rectus muscle which was split and the fascia was divided. Two fingerbreadths of space was made. The proximal one-third transvers to one- half transverse colon was viable and pulled through the colostomy site. The colostomy was matured using multiple interrupted 3-0 chromic. The NG tube was identified manually in the appropriate position in the stomach. The bowel was then squeezed proximally to allow for evacuation of the gastric and small bowel contents. Additional irrigation was used. The fascia was then closed from superior to inferior and inferior to superior with #1 looped PDS in the midline. The wound was then also irrigated and washed out with Betadine. Two Maurisio drains were placed in the right and left old port sites and affixed with 3 -0 nylon. The drains were placed in the pericolic gutters on each side. The skin was then closed lightly with interrupted skin pierre. Dry dressings and the colostomy bag were applied. Dictated By: DANIEL ENCISO/VINNY Conf#: [id number] DID#: [id number] LUDY
[2017-08-06 05:20] LABS: ABNORMAL IP MESSAGE 1; HEMATOCRIT 28.1 % (37.0-47.0); HEMOGLOBIN 8.9 g/dl (12.0-16.0); MEAN CORPUSCULAR HEMOGLOBIN 24.9 pg (29.0-33.0); MEAN CORPUSCULAR HGB CONC 31.7 g/dl (32.0-37.0); MEAN CORPUSCULAR VOLUME 78.7 fl (82.0-101.0); MEAN PLATELET VOLUME 12.5 fl (7.4-10.4); NUCLEATED RED BLOOD CELLS% 0.3 /100WBC (0.0-0.0); PLATELET COUNT 412 10^3/UL (140-415); RED BLOOD COUNT 3.57 10^6/ul (4.20-5.40); RED CELL DISTRIBUTION WIDTH 22.5 % (11.5-14.5); WHITE BLOOD COUNT 22.9 10^3/ul (4.8-10.8)
[2017-08-06] MEDS: PANTOPRAZOLE 40 MG INJ IV SCH (05:33)
[2017-08-06] MEDS: metroNIDAZOLE 500 MG/NS (PMX) 100 ML IVPB SCH (05:34)
[2017-08-06 05:41] LABS: ALBUMIN 1.9 g/dl (3.3-4.9); BILIRUBIN,INDIRECT 0.3 mg/dl (0-1.1); BILIRUBIN,TOTAL 0.3 mg/dl (0.2-1.3); CALCIUM 6.4 mg/dl (8.4-10.2); POTASSIUM 5.6 mmol/L (3.5-5.1); TOTAL PROTEIN 3.8 g/dl (6.1-8.1)
[2017-08-06 05:44] LABS: MAGNESIUM 2.3 mg/dl (1.7-2.5); PHOSPHORUS 7.5 mg/dl (2.5-4.9)
[2017-08-06 05:56] LABS: CREATININE 2.08 mg/dl (0.44-1.00)
[2017-08-06 06:18] LABS: POSITIVE DIFF @See below
[2017-08-06 07:10] LABS: AADO2 Arterial 243.6 mmHg (7.0-24.0); Arterial Base Excess -7.6 mmol/L (-3.0-3); Arterial COHb 0 % (0.0-3.0); Arterial Fraction of Oxyhgb 93.4 % (93.0-99.0); Arterial HCO3 17.4 mmol/L (22.0-26.0); Arterial MetHb 0.2 % (0.0-1.5); MODE VENT - AC
[2017-08-06] MEDS: morphine 2 MG INJ IV PRN (07:29)
--- NOTE | 2017-08-06 07:48 | RADRPT ---
PROCEDURE: Renal US. CLINICAL INDICATION: Acute kidney injury. TECHNIQUE: Multiple sonographic images of the kidneys and urinary bladder were obtained. The imag es were reviewed on a PACS workstation. COMPARISON: No prior studies are available for comparison. FINDINGS: The right kidney measures 11.5 x 5.7 x 5.7 cm. The left kidney measures 11.3 x 4.6 x 4.8 cm. There is no renal mass. There is no hydronephrosis. There is no renal calculus. Renal parenchymal thickness is normal bilaterally. Echogenicity is normal bilaterally. The perirenal regions are normal with no fluid collection or mass. There is a Leal catheter in the bladder. IMPRESSION: 1. Normal kidneys with no hydronephrosis. 2. Leal catheter in the bladder. RPTAT: QQ .Kana Renteria MD, MD Date Time Electronically viewed and signed by .Kana Renteria MD, on 08/06/2017 07:47 .R/
[2017-08-06 07:59] LABS: AADO2 Arterial 151.1 mmHg (7.0-24.0); Arterial Base Excess -7.2 mmol/L (-3.0-3); Arterial COHb 0.3 % (0.0-3.0); Arterial Fraction of Oxyhgb 96.9 % (93.0-99.0); Arterial HCO3 16.3 mmol/L (22.0-26.0); Arterial MetHb 0.3 % (0.0-1.5); Arterial Total Hemglobin 9.4 g/dl (12.0-18.0); MODE VENT - AC
--- NOTE | 2017-08-06 08:52 | PN ---
Date/Time of Note Date/Time of Note DATE: 08/06/17 TIME: 08:49 Assessment/Plan VTE Prophylaxis VTE Prophylaxis Intervention: SCD's Lines/Catheters IV Catheter Type (from Nrs): Central Line (Right IJ) Central line still needed: Yes (for pressors and antibiotics) Urinary Cath still in place: Yes Reason Cath still needed: other (indicate) Assessment/Plan Assessment/Plan 51 year old female with: 1. Postop anastomotic leak with sepsis, status post ex lap with drainage of abscesses, drain placement, partial colectomy and colostomy POD#1. Status post Left hemicolectomy for sigmoid adenocarcinoma/mass POD#9 Patient on broad-spectrum antibiotics currently, will have infectious disease consult to narrow down antibiotic needs Continue mechanical ventilation for now as patient also has volume status issues and acute kidney injury Follow-up further recommendations from Dr. Aldana Patient is otherwise fairly stable postoperatively, of levo fed as of last night. Infectious disease consult pending 2. Respiratory distress, volume overload, pulmonary edema and also possible aspiration pneumonia versus healthcare associated pneumonia, no pulmonary embolus. Patient has been left on the vent postoperatively, she is currently on CPAP trial however she may need to stay on the vent for another 24 hours for purpose of diuresis while with acute kidney injury and management of her volume status. Will discuss with pulmonary Appreciate recommendations from nephrology, patient being diuresed while on the vent. On IV antibiotics already. 3. Atrial fibrillation, chronic, currently in sinus rhythm in the 80s. Continue amiodarone drip while not tolerating p.o. well yet, also on digoxin IV , appreciate cardiology recommendations. Anticoagulation discontinued, discussed with cardiology for now will just leave her off anticoagulation for the remainder of her postoperative course. Electrolyte repletion as needed. 4. Chronic congestive heart failure, chronic diastolic dysfunction and ejection fraction of 55% on latest outpatient echocardiogram in January 2017 and confirmed to be 50% on this admission. Currently in volume overload, much improved however, appreciate recommendations from Dr. Kiser On diuresis Monitor volume status. 5. Acute kidney injury, in setting of sepsis, also had the contrast studies 2. Appreciate recommendations from nephrology, renal function improved this morning. Leal catheter in place, on diuresis. Monitor urine output 6. Hypertension, all antihypertensive on hold in setting of sepsis Prophylaxis: Off anticoagulation, SCDs, Pepcid for GI prophylaxis. Disposition: Patient currently on the vent, continue volume management with diuresis, renal function improving, on multiple antibiotics, infectious disease consult pending for antibiotic management. For further recommendation from general surgery, nephrology, pulmonary. Subjective 24 Hr Interval Summary Free Text/Dictation Overnight patient had to be taken to the OR urgently for Exploratory laparotomy with intra-abdominal abscess drainage, partial colectomy, placement of percutaneous Maurisio drains x2 and formation of end colostomy with Corona's pouch. Patient was already having volume management issues in respiratory distress preoperatively therefore postoperatively she has been left on the ventilator, nephrology has been consulted for fluid management and acute kidney injury, renal function is slightly better this morning, urine output is adequate. She is actually awake on the vent, following commands, ID consult today for abx management Exam/Review of Systems Vital Signs Vitals Vital Signs Date Time Temp Pulse Resp B/P Pulse Ox O2 Delivery O2 Flow Rate FiO2 08/06/17 08:00 87 26 110/50 100 Mechanical Ventilator 08/06/17 07:00 98.1 08/06/17 05:55 50 08/05/17 13:19 5.0 Intake and Output 08/05/17 08/05/17 08/06/17 15:00 23:00 07:00 Intake Total 1090 ml 1255.298 ml Output Total 110 ml 1430 ml Balance 980 ml -174.702 ml Exam Constitutional: alert, other (Intubated, on levo) Respiratory: diminished breath sounds (Bases bilaterally), other (On mechanical ventilation postoperatively) Gastrointestinal: other (NG tube in place, status post ex lap, colostomy bag in place, drains 2), soft Musculoskeletal: nl extremities to inspection Extremities: normal pulses, other (Anasarca, moderate) Neurological: 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 [employer]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 MAKING II-XII intact, nl mental status, other (Intubated, however patient alert, following commands.) Results Result Diagram: 08/06/17 0500 08/06/17 0500 Results 24 hrs Laboratory Tests Test 08/05/17 10:40 08/05/17 11:47 08/05/17 22:40 08/06/17 05:00 White Blood Count 20.8 H 19.5 H 22.9 H Red Blood Count 5.01 3.85 #L 3.57 L Hemoglobin 12.0 9.7 L 8.9 L Hematocrit 38.6 30.7 #L 28.1 L Mean Corpuscular Volume 77.0 L 79.7 L 78.7 L Mean Corpuscular Hemoglobin 24.0 L 25.2 L 24.9 L Mean Corpuscular Hemoglobin Concent 31.1 L 31.6 L 31.7 L Red Cell Distribution Width 22.8 H 22.5 H 22.5 H Platelet Count 499 H 430 H 412 Mean Platelet Volume 12.0 H 11.7 H 12.5 H Neutrophils % 81.1 H Segmented Neutrophils % (Manual) 46 Band Neutrophils % (Manual) 34 H Lymphocytes % 5.9 L Lymphocytes % (Manual) 9 L Monocytes % 3.6 Monocytes % (Manual) 8 Eosinophils % 0.1 Eosinophils % (Manual) 1 Basophils % 0.4 Metamyelocytes % (manual) 2 H Myelocytes % (Manual) 1 H Nucleated Red Blood Cells % 0.1 H 0.2 H 0.3 H Neutrophils # 15.8 H Neutrophils # (Manual) 11.0 H Band Neutrophils # 7.0 H Absolute Lymphocytes (Manual) 1.8 Lymphocytes # 1.2 Monocytes # 0.7 Absolute Monocytes (Manual) 1.6 H Eosinophils # 0.0 Basophils # 0.1 Metamyelocytes # 0.4 H Myelocytes # 0.2 H Nucleated Red Blood Cells # 0.0 Platelet Estimate NORMAL Polychromasia 3+ Poikilocytosis 3+ Anisocytosis 1+ Sodium Level 134 L 134 L 136 Potassium Level 5.4 H 5.4 H 5.6 H Chloride Level 99 102 104 Carbon Dioxide Level 20 L 17 L 19 L Anion Gap 20 H 20 H 19 H Blood Urea Nitrogen 81 #H 80 H 77 H Creatinine 2.42 #H 2.52 H 2.08 H Glucose Level 91 134 # 92 # Lactic Acid Level 2.0 Calcium Level 6.6 L 6.4 L 6.4 L Phosphorus Level 8.1 #H 7.5 H Magnesium Level 2.6 H 2.3 Total Bilirubin 0.2 0.2 0.3 Direct Bilirubin 0.00 0.00 0.00 Indirect Bilirubin 0.2 0.2 0.3 Aspartate Amino Transf (AST/SGOT) 41 39 50 H Alanine Aminotransferase (ALT/SGPT) 30 36 23 Alkaline Phosphatase 105 67 60 Total Protein 5.3 L 4.8 L 3.8 #L Albumin 2.3 L 2.3 L 1.9 L Globulin 3.00 2.50 1.90 Albumin/Globulin Ratio 0.76 0.92 1.00 Prothrombin Time 16.7 #H Prothrombin Time Ratio 1.3 INR International Normalized Ratio 1.34 Activated Partial Thromboplast Time 32.6 Random Vancomycin Level 5.4 Test 08/06/17 05:00 08/06/17 07:00 08/06/17 07:06 Lab Scanned Report BLOOD TRANSFUSION Blood Gas Specimen Source Blood arterial Blood arterial Arterial Blood Date Drawn 08/06/2017 7:40:04 AM 08/05/2017 9:34:00 PM Arterial Blood pH (Temp corrected) 7.411 7.330 L Arterial Blood pCO2 (Temp correct) 26.2 L 33.7 L Arterial Blood pO2 (Temp corrected) 104.0 H 75.0 L Arterial Blood HCO3 16.3 L 17.4 L Arterial Blood Base Excess -7.2 L -7.6 L Arterial Blood Oxygen Saturation 97.5 93.6 L Brian Test N/A N/A Arterial Blood Gas Puncture Site A-Line A-Line Arterial Blood Carboxyhemoglobin 0.3 0 Arterial Blood Methemoglobin 0.3 0.2 Blood Gas A-a O2 Differential 151.1 H 243.6 H Oxyhemoglobin Percent 96.9 93.4 Total Hemoglobin 9.4 L 12.0 Blood Gas Temperature 37.0 37.0 Blood Gas Respiration Rate 16.0 16.0 Blood Gas Actual Respiration Rate 20 29 Blood Gas Modality VENT - AC VENT - AC FiO2 40.0 50.0 Blood Gas Tidal Volume 500.0 500.0 Blood Gas Low PEEP Setting 5.0 5.0 Blood Gas Notified Whom JLD DY Blood Gas Notified Time 08/06/2017 7:58:53 AM 08/05/2017 9:49:00 PM Imaging Free Text/Dictation PROCEDURE: XR Chest. CLINICAL INDICATION: Ventilated patient with dyspnea and congestive heart failure. TECHNIQUE: Single frontal view of the chest COMPARISON: 03/10/2014. FINDINGS: Endotracheal intubation is seen, new over the interval. The tip is about 47 mm above the tessie. New nasogastric tube is seen with tip and side port in the proximal stomach. New right central venous line in place with tip in the superior vena cava. Cardiomegaly again seen. Decreased lung inflation over interval. New left pleural effusion with left lung base atelectasis versus airspace disease. The right lung is clear, given degree of hypoinflation. No signs of pneumothorax are seen. The osseous structures and soft tissues are unremarkable. IMPRESSION: 1. New endotracheal intubation is seen with tip about 46 mm above the tessie. 2. New nasogastric tube in place with tip and side port in the proximal stomach. 3. New right central venous line in place with tip in the superior vena cava. 4. New small left pleural effusion with left lung base atelectasis. RPTAT: [facility] Physician Spike Date Time Electronically viewed and signed by Physician Spike on 08/06/2017 04:54 RS/ Medications Medications Current Medications Acetaminophen 650 mg 650 mg Q4H PRN PO pain/fever; Start 07/24/17 at 07:00; Status Future Hold Acetaminophen 100 ml @ 400 mls/hr Q6H IVPB Last administered on 08/06/17 05: 34; Admin Dose 400 MLS/HR; Start 07/26/17 at 18:00 Ondansetron HCl/ Sodium Chloride (Zofran Inj/NS) 54 ml @ 216 mls/hr Q6H PRN IV NAUSEA AND/OR VOMITING Last administered on 08/05/17 03:50; Admin Dose 216 MLS/HR; Start 07/27/17 at 13:00 Phenol (Chloraseptic Throat [place]) 2 spray Q2H PRN MT SORE THROAT Last administered on 07/29/17 18:10; Admin Dose 2 SPRAY; Start 07/29/17 at 13:00 Diphenhydramine HCl (Benadryl) 25 mg Q6H PRN IV SLEEP Last administered on 08/01 00:19; Admin Dose 25 MG; Start 07/31/17 at 13:00 Chlorpromazine 10 mg 10 mg Q6 PRN IM HICCUPS Last administered on 08/04/17 21: 21; Admin Dose 10 MG; Start 08/02/17 at 06:00 Sodium Chloride (NS) 1,000 ml @ 120 mls/hr Q8H20M IV Last administered on 08/06 02:21; Admin Dose 120 MLS/HR; Start 08/03/17 at 18:00 Loratadine (Claritin) 10 mg DAILY NGT Last administered on 08/04/17 09:32; Admin Dose 10 MG; Start 08/04/17 at 09:00 Famotidine 20 mg 20 mg DAILY IV ; Start 08/06/17 at 09:00 Meropenem/Sodium Chloride (Merrem 500mg/50 ml(Pmx)) 50 ml @ 100 mls/hr Q12 IVPB Last administered on 08/05/17 21:00; Admin Dose 100 MLS/HR; Start at 21:00 Pantoprazole 40 mg 40 mg DAILY@06 IV Last administered on 08/06/17 05:33; Admin Dose 40 MG; Start 08/06/17 at 06:00 Ciprofloxacin/ Dextrose 200 ml @ 200 mls/hr Q24H IVPB Last administered on 21:00; Admin Dose 200 MLS/HR; Start 08/05/17 at 21:00 Metronidazole (Flagyl 500 Mg (Pmx)) 100 ml @ 100 mls/hr Q8 IVPB Last administered on 08/06/17 05:34; Admin Dose 100 MLS/HR; Start 08/05/17 at 22:00 Hydromorphone HCl 0.5 mg 0.5 mg Q2H PRN IV PAIN; Start 08/05/17 at 22:30 Propofol (Diprivan) 100 ml @ 2.79 mls/hr Q12H IV Last administered on 00:18; Admin Dose 14.954 MLS/HR; Start 08/05/17 at 23:45 Morphine Sulfate 2 mg 2 mg Q2H PRN IV PAIN Last administered on 08/06/17 07:29 ; Admin Dose 2 MG; Start 08/05/17 at 23:45 Norepinephrine/ Dextrose (Levophed/D5W) 500 ml @ 1.87 mls/hr TITRATE IV Last administered on 08/06/17 02:05; Admin Dose 5.62 MLS/HR; Start 08/06/17 at 00:30 RAE CALVO Aug 06, 2017 08:51
[2017-08-06] MEDS ORDERED: FAMOTIDINE 20 MG INJ IV SCH (09:00)
[2017-08-06] MEDS: MEROPENEM 500MG/50 ML (PMX) 50 ML IVPB SCH ×2 (09:00→10:33)
[2017-08-06] MEDS: LORATADINE 10 MG TAB NGT SCH (09:00)
[2017-08-06] MEDS ORDERED: NA BICARBONATE 8.4% 50 ML SYG IV STA (09:35)
[2017-08-06 09:36] LABS: ANISOCYTOSIS 1+ (0-0); BURR CELLS 1+ (0-0); GIANT THROMBO% (M) 13 % (0-0); METAMYELOCYTES %M 2 % (0-0); MONOCYTES % (M) 6 % (0-11); PLATELET ESTIMATE NORMAL; POIKILOCYTOSIS 1+ (0-0); POLYCHROMASIA 2+ (0-0); PROMYELOCYTES #M 0.2 10^3/ul (0-0); PROMYELOCYTES % (M) 1 % (0-0)
--- NOTE | 2017-08-06 09:45 | CONS ---
Date/Time of Note Date/Time of Note DATE: 08/06/17 TIME: 09:40 Assessment/Plan Assessment/Plan Chief Complaint/Hosp Course - Please note that pt is seen today at 4 pm but Nubity system was down until 9 pm 51-year-old female with previous history of congestive heart failure, paroxysmal atrial fibrillation, hyperlipidemia, recently diagnosed sigmoid adenocarcinoma that required hemicolectomy apparently, presented to the emergency department with rectal bleeding, abdominal pain, shortness of breath, dizziness and a severe anemia with a hemoglobin of 6.6. - She underwent laparoscopic converted to open extended left hemicolectomy, mobilization of splenic flexure, laparoscopic lysis of adhesions [address]Bae Sanchez on . her postoperative course was complicated by Anastomic leak with peritonitis, she is noted to have Cr normal on admission which bumped to 1.42 on 08/04 and today bumped to 2.42 associated with Hyperkalemia and oliguria. she Underwent another Surgery by Gen surgery today, she remained intubated postoperatively, On low dose levophed and pt urine output dropped down to 10 cc/ hr Renal has been consulted for Oliguric EJ, Hyperkalemia and severe metaboilc acidosis. Problems: Additional Assessment/Plan 1. Oliguric EJ due to ATN from Shock- Multifactorial septic from peritonitis + Hemorrhagic 2. Acute hyperkalemia due to EJ 3. Metabolic acidosis with lactic acidosis 4. acute resp failure, possible Asp PNA vs HCAP - pt remained on ventilator post operatively 5. Septic shock requiring pressors, now off levophed 6. Status post Left hemicolectomy for sigmoid adenocarcinoma/mass POD#7, s/p total of 4 units pRBC since admission. - again pt underwent Exploratory laparotomy with intra-abdominal abscess drainage, Placement of percutaneous Maurisio drains #19 x2., Partial colectomy.Formation of end colostomy with Corona 's pouch. on 08/05/17 7. Atrial fibrillation 8. Chornic diastolic heart failure with EF 55% 9. Hypocalcemia with hypoalbuminemia Plan: pt remains intubated, FiO2 down to 30%, BP stable , Off levophed now, Cr stable , K high, made good urine output after IV albumin + NS 500 cc bolus followed up by lasix IV yesterday off levophed, BP stable will give calcum gluconate 2 gram IV x 1 , Na bicarbonate 50mEQ Iv x1 Again today we will give IV albumin 25% 100ml IV x 1 followed up by NS 500cc bolus x 1 followed up by Lasix 40mg iV X 1 Renal US pending will continue to follow up along with other subspecialist Consultation Date/Type/Reason Admit Date/Time Jul 24, 2017 at 06:16 Initial Consult Date 08/05/17 Type of Consultation: NEPHROLOGY Referring Provider: RAE CALVO 24 HR Interval Summary Free Text/Dictation pt remains intubated, FiO2 down to 30%, BP stable , Off levophed now, Cr stable , K high, made good urine output 1.1 liter after IV albumin + NS 500 cc bolus followed up by lasix IV yesterday Exam/Review of Systems Vital Signs Vitals Vital Signs Date Time Temp Pulse Resp B/P Pulse Ox O2 Delivery O2 Flow Rate FiO2 08/06/17 08:00 87 26 110/50 100 Mechanical Ventilator 08/06/17 07:00 98.1 08/06/17 05:55 50 08/05/17 13:19 5.0 Intake and Output 08/05/17 08/05/17 08/06/17 15:00 23:00 07:00 Intake Total 1090 ml 1255.298 ml Output Total 110 ml 1430 ml Balance 980 ml -174.702 ml Exam Constitutional: non-verbal, other (Intubaed sedated on ventilator ) Respiratory: crackles/rales, diminished breath sounds, other (Bilateral corase BS+) Cardiovascular: other (Tachycardia ) Gastrointestinal: distended, tender Musculoskeletal: muscle weakness, swelling Extremities: normal pulses, + valladares catheter Neurological: other (sedated on ventilator, uncooperative for exam ) Lymph: nl lymph nodes Results Result Diagram: 08/06/17 0500 08/06/17 0500 Results 24 hrs Laboratory Tests Test 08/05/17 10:40 08/05/17 11:47 08/05/17 22:40 08/06/17 05:00 White Blood Count 20.8 H 19.5 H 22.9 H Red Blood Count 5.01 3.85 #L 3.57 L Hemoglobin 12.0 9.7 L 8.9 L Hematocrit 38.6 30.7 #L 28.1 L Mean Corpuscular Volume 77.0 L 79.7 L 78.7 L Mean Corpuscular Hemoglobin 24.0 L 25.2 L 24.9 L Mean Corpuscular Hemoglobin Concent 31.1 L 31.6 L 31.7 L Red Cell Distribution Width 22.8 H 22.5 H 22.5 H Platelet Count 499 H 430 H 412 Mean Platelet Volume 12.0 H 11.7 H 12.5 H Neutrophils % 81.1 H Segmented Neutrophils % (Manual) 46 51 Band Neutrophils % (Manual) 34 H 33 H Lymphocytes % 5.9 L Lymphocytes % (Manual) 9 L 7 L Monocytes % 3.6 Monocytes % (Manual) 8 6 Eosinophils % 0.1 Eosinophils % (Manual) 1 Basophils % 0.4 Metamyelocytes % (manual) 2 H 2 H Myelocytes % (Manual) 1 H Nucleated Red Blood Cells % 0.1 H 0.2 H 0.3 H Neutrophils # 15.8 H Neutrophils # (Manual) 11.0 H 13.4 H Band Neutrophils # 7.0 H 7.5 H Absolute Lymphocytes (Manual) 1.8 1.6 Lymphocytes # 1.2 Monocytes # 0.7 Absolute Monocytes (Manual) 1.6 H 1.3 H Eosinophils # 0.0 Basophils # 0.1 Metamyelocytes # 0.4 H 0.4 H Myelocytes # 0.2 H Nucleated Red Blood Cells # 0.0 Platelet Estimate NORMAL NORMAL Polychromasia 3+ 2+ Poikilocytosis 3+ 1+ Anisocytosis 1+ 1+ Sodium Level 134 L 134 L 136 Potassium Level 5.4 H 5.4 H 5.6 H Chloride Level 99 102 104 Carbon Dioxide Level 20 L 17 L 19 L Anion Gap 20 H 20 H 19 H Blood Urea Nitrogen 81 #H 80 H 77 H Creatinine 2.42 #H 2.52 H 2.08 H Glucose Level 91 134 # 92 # Lactic Acid Level 2.0 Calcium Level 6.6 L 6.4 L 6.4 L Phosphorus Level 8.1 #H 7.5 H Magnesium Level 2.6 H 2.3 Total Bilirubin 0.2 0.2 0.3 Direct Bilirubin 0.00 0.00 0.00 Indirect Bilirubin 0.2 0.2 0.3 Aspartate Amino Transf (AST/SGOT) 41 39 50 H Alanine Aminotransferase (ALT/SGPT) 30 36 23 Alkaline Phosphatase 105 67 60 Total Protein 5.3 L 4.8 L 3.8 #L Albumin 2.3 L 2.3 L 1.9 L Globulin 3.00 2.50 1.90 Albumin/Globulin Ratio 0.76 0.92 1.00 Prothrombin Time 16.7 #H Prothrombin Time Ratio 1.3 INR International Normalized Ratio 1.34 Activated Partial Thromboplast Time 32.6 Promyelocytes % (Manual) 1 H Promyelocytes # 0.2 H Giant Platelets 13 H Platelet Morphology Comment @See below Random Vancomycin Level 5.4 Test 08/06/17 05:00 08/06/17 07:00 08/06/17 07:06 Lab Scanned Report BLOOD TRANSFUSION Blood Gas Specimen Source Blood arterial Blood arterial Arterial Blood Date Drawn 08/06/2017 7:40:04 AM 08/05/2017 9:34:00 PM Arterial Blood pH (Temp corrected) 7.411 7.330 L Arterial Blood pCO2 (Temp correct) 26.2 L 33.7 L Arterial Blood pO2 (Temp corrected) 104.0 H 75.0 L Arterial Blood HCO3 16.3 L 17.4 L Arterial Blood Base Excess -7.2 L -7.6 L Arterial Blood Oxygen Saturation 97.5 93.6 L Brian Test N/A N/A Arterial Blood Gas Puncture Site A-Line A-Line Arterial Blood Carboxyhemoglobin 0.3 0 Arterial Blood Methemoglobin 0.3 0.2 Blood Gas A-a O2 Differential 151.1 H 243.6 H Oxyhemoglobin Percent 96.9 93.4 Total Hemoglobin 9.4 L 12.0 Blood Gas Temperature 37.0 37.0 Blood Gas Respiration Rate 16.0 16.0 Blood Gas Actual Respiration Rate 20 29 Blood Gas Modality VENT - AC VENT - AC FiO2 40.0 50.0 Blood Gas Tidal Volume 500.0 500.0 Blood Gas Low PEEP Setting 5.0 5.0 Blood Gas Notified Whom JUANA CROSS Blood Gas Notified Time 08/06/2017 7:58:53 AM 08/05/2017 9:49:00 PM Medications Medications Current Medications Acetaminophen 650 mg 650 mg Q4H PRN PO pain/fever; Start 07/24/17 at 07:00; Status Future Hold Acetaminophen 100 ml @ 400 mls/hr Q6H IVPB Last administered on 08/06/17t 05: 34; Admin Dose 400 MLS/HR; Start 07/26/17 at 18:00 Ondansetron HCl/ Sodium Chloride (Zofran Inj/NS) 54 ml @ 216 mls/hr Q6H PRN IV NAUSEA AND/OR VOMITING Last administered on 08/05/17 03:50; Admin Dose 216 MLS/HR; Start 07/27/17 at 13:00 Phenol (Chloraseptic Throat [place]) 2 spray Q2H PRN MT SORE THROAT Last administered on 07/29/17 18:10; Admin Dose 2 SPRAY; Start 07/29/17 at 13:00 Diphenhydramine HCl (Benadryl) 25 mg Q6H PRN IV SLEEP Last administered on 08/01 00:19; Admin Dose 25 MG; Start 07/31/17 at 13:00 Chlorpromazine 10 mg 10 mg Q6 PRN IM HICCUPS Last administered on 08/04/17 21: 21; Admin Dose 10 MG; Start 08/02/17 at 06:00 Sodium Chloride (NS) 1,000 ml @ 120 mls/hr Q8H20M IV Last administered on 08/06 02:21; Admin Dose 120 MLS/HR; Start 08/03/17 at 18:00 Loratadine (Claritin) 10 mg DAILY NGT Last administered on 08/04/17 09:32; Admin Dose 10 MG; Start 08/04/17 at 09:00 Famotidine 20 mg 20 mg DAILY IV Last administered on 08/06/17 09:12; Admin Dose 20 MG; Start 08/06/17 at 09:00 Meropenem/Sodium Chloride (Merrem 500mg/50 ml(Pmx)) 50 ml @ 100 mls/hr Q12 IVPB Last administered on 08/05/17 21:00; Admin Dose 100 MLS/HR; Start at 21:00 Pantoprazole 40 mg 40 mg DAILY@06 IV Last administered on 08/06/17 05:33; Admin Dose 40 MG; Start 08/06/17 at 06:00 Ciprofloxacin/ Dextrose 200 ml @ 200 mls/hr Q24H IVPB Last administered on 21:00; Admin Dose 200 MLS/HR; Start 08/05/17 at 21:00 Metronidazole (Flagyl 500 Mg (Pmx)) 100 ml @ 100 mls/hr Q8 IVPB Last administered on 08/06/17 05:34; Admin Dose 100 MLS/HR; Start 08/05/17 at 22:00 Hydromorphone HCl 0.5 mg 0.5 mg Q2H PRN IV PAIN; Start 08/05/17 at 22:30 Propofol (Diprivan) 100 ml @ 2.79 mls/hr Q12H IV Last administered on 08:52; Admin Dose 16.74 MLS/HR; Start 08/05/17 at 23:45 Morphine Sulfate 2 mg 2 mg Q2H PRN IV PAIN Last administered on 08/06/17 07:29 ; Admin Dose 2 MG; Start 08/05/17 at 23:45 Norepinephrine 16 mg/Dextrose 500 ml @ 1.87 mls/hr TITRATE IV Last administered on 08/06/17 02:05; Admin Dose 5.62 MLS/HR; Start 08/06/17 at 00:30 Vancomycin HCl 2 gm/Sodium Chloride 500 ml @ 125 mls/hr ONCE IVPB ; Start 08/06 at 11:30; Stop 08/06/17 at 11:31 Calcium Gluconate 2 gm/Dextrose 120 ml @ 60 mls/hr ONCE ONCE IVPB ; Start 08/06/17 at 10:00; Stop 08/06/17 at 11:59 Albumin Human 100 ml @ 100 mls/hr ONCE ONCE IV ; Start 08/06/17 at 10:00; Stop 08/06/17 at 10:59; Status UNV Sodium Chloride (NS) 500 ml @ 500 mls/hr Q1H ONCE IV ; Start 08/06/17 at 10:00 ; Stop 08/06/17 at 10:59; Status UNV Furosemide (Lasix) 40 mg ONCE ONCE IV ; Start 08/06/17 at 10:00; Stop 08/06/17 at 10:01; Status UNV MEKA ROBERTSON MD Aug 06, 2017 09:45
[2017-08-06] MEDS ORDERED: ALBUMIN HUMAN 25% 100 ML IV ONE (10:00)
[2017-08-06] MEDS ORDERED: CALCIUM GLUCONATE 10% 2 GM in DEXTROSE 5% 100 ML IVPB ONE (10:00)
[2017-08-06] MEDS ORDERED: SOD CHLORIDE 0.9% 500 ML IV ONE (10:00)
--- NOTE | 2017-08-06 10:33 | CONS ---
DATE OF ADMISSION: 07/24/2017 DATE OF CONSULTATION: 08/06/2017 TYPE OF CONSULTATION: Pulmonary. REASON FOR CONSULTATION: Mechanical ventilation. HISTORY OF PRESENT ILLNESS: This is a 51-year-old lady originally admitted on 07/24/2017 with brigh t red blood/bleeding per rectum with history of sigmoid mass, received packed red cell blood transfu wenceslao and underwent a left hemicolectomy 8 days ago. Yesterday had increased abdominal pain concerni ng for peritonitis, underwent repeat exploratory laparotomy by Dr. Aldana, had an ileostomy performed; however, remained on mechanical ventilation overnight. This morning, she is intubated, sedated on m echanical ventilation, appears relatively comfortable at rest. Recent workup demonstrated no eviden ce of pulmonary embolus. Chest x-ray shows low lung volumes clinical course was complicated by mild congestive cardiac failure, atrial fibrillation and acute kidney injury. PAST MEDICAL HISTORY: As above. MEDICATIONS: Per chart. ALLERGIES: 1. PENICILLIN. 2. SULFA. 3. AMOXICILLIN 4. CODEINE. 5. HYDROCODONE. SOCIAL HISTORY: Nonsmoker, no alcohol, no history of drug use. FAMILY HISTORY: Noncontributory. SYSTEMS REVIEW: A 14-point review of systems currently unable to perform. PHYSICAL EXAMINATION: GENERAL: Well-nourished, well-developed lady, intubated on mechanical ventilation, appears comforta ble at rest, no acute distress. VITAL SIGNS: Currently afebrile, pulse is 87, blood pressure 110/50, O2 saturation 96%, FIO2 of 40% , orally intubated. NECK: Supple, no JVD or lymphadenopathy. CARDIAC: S1, S2, no added sounds or murmurs. CHEST: Diminished air entry bilaterally. ABDOMEN: Soft, nontender. No guarding or rebound. EXTREMITIES: No cyanosis, clubbing, 1+ edema. NEUROLOGIC: Generalized weakness. LABORATORY DATA: White count is 22.9, hemoglobin 8.9, platelets of 412. BUN 77, creatinine 2.08. INR was 1.34. ABG: pH 7.33, pCO2 of 33, pO2 of 75, bicarbonate was 17.4. Urinalysis was unremarka ble. Chest x-ray as of yesterday showed small left pleural effusion, low lung volumes. IMPRESSION AND PLAN: 1. Status post exploratory laparotomy and now ileostomy. 2. Recent bowel resection for colon carcinoma. 3. History of atrial fibrillation, congestive cardiac failure. PLAN: 1. CPAP trial, hopefully safely extubate. 2. Post-extubation incentive spirometry. 3. Continue postop surgical recommendations including nasogastric tube suction. 4. Deep venous thrombosis and gastrointestinal prophylaxis. Dictated By: YONATAN KNUTSON/VINNY Conf#: [id number] DID#: [id number]
[2017-08-06] MEDS ORDERED: FUROSEMIDE 40 MG INJ IV ONE (11:00)
[2017-08-06] MEDS ORDERED: VANCOMYCIN 2 GM in SOD CHLORIDE 0.9% 500 ML IVPB SCH (11:30)
[2017-08-06] MEDS ORDERED: ERTAPENEM SODIUM 1 GM in SOD CHLORIDE 0.9% 100 ML IVPB SCH (11:30)
--- NOTE | 2017-08-06 11:39 | CONS ---
Date/Time of Note Date/Time of Note DATE: 08/06/17 TIME: 11:37 Assessment/Plan Assessment/Plan Additional Assessment/Plan Paroxysmal atrial fibrillation with rapid ventricular rates, currently sinus Low normal ejection fraction 50% Colon mass status post colon surgery July 26, 2017 and repeat August 05, 2017 Acute kidney injury Sepsis Vent dependent respiratory failure -Patient remains in sinus rhythm. If episodes of recurrent atrial fibrillation , would restart IV amiodarone. Patient initially was on IV pressor and currently off. No antihypertensive the current time. IV fluids and electronic management as per our nephrology colleagues. Vent management as per pulmonary. Consultation Date/Type/Reason Admit Date/Time Jul 24, 2017 at 06:16 Initial Consult Date 07/29/17 Type of Consultation: cv Referring Provider: RAE CALVO 24 HR Interval Summary Free Text/Dictation Patient status post abdominal surgery yesterday. Currently off IV pressor. Currently sedated. No new cardiac issues as per nursing staff Exam/Review of Systems Vital Signs Vitals Vital Signs Date Time Temp Pulse Resp B/P Pulse Ox O2 Delivery O2 Flow Rate FiO2 08/06/17 11:00 88 23 112/46 99 Mechanical Ventilator 08/06/17 07:00 98.1 08/06/17 05:55 50 08/05/17 13:19 5.0 Intake and Output 08/05/17 08/05/17 08/06/17 15:00 23:00 07:00 Intake Total 1090 ml 1375.298 ml Output Total 110 ml 1430 ml Balance 980 ml -54.702 ml Exam Sedated and intubated, no apparent distress Constitutional: obese Head: normocephalic ENMT: intubated Cardiovascular: other (Coarse breath sounds bilaterally, no wheezing) Gastrointestinal: bowel sounds (Diminished), soft Extremities: edema Results Result Diagram: 08/06/17 0500 08/06/17 0500 Results 24 hrs Laboratory Tests Test 08/05/17 11:47 08/05/17 22:40 08/06/17 05:00 08/06/17 05:00 Prothrombin Time 16.7 #H Prothrombin Time Ratio 1.3 INR International Normalized Ratio 1.34 Activated Partial Thromboplast Time 32.6 White Blood Count 19.5 H 22.9 H Red Blood Count 3.85 #L 3.57 L Hemoglobin 9.7 L 8.9 L Hematocrit 30.7 #L 28.1 L Mean Corpuscular Volume 79.7 L 78.7 L Mean Corpuscular Hemoglobin 25.2 L 24.9 L Mean Corpuscular Hemoglobin Concent 31.6 L 31.7 L Red Cell Distribution Width 22.5 H 22.5 H Platelet Count 430 H 412 Mean Platelet Volume 11.7 H 12.5 H Neutrophils % 81.1 H Lymphocytes % 5.9 L Monocytes % 3.6 Eosinophils % 0.1 Basophils % 0.4 Nucleated Red Blood Cells % 0.2 H 0.3 H Neutrophils # 15.8 H Lymphocytes # 1.2 Monocytes # 0.7 Eosinophils # 0.0 Basophils # 0.1 Nucleated Red Blood Cells # 0.0 Sodium Level 134 L 136 Potassium Level 5.4 H 5.6 H Chloride Level 102 104 Carbon Dioxide Level 17 L 19 L Anion Gap 20 H 19 H Blood Urea Nitrogen 80 H 77 H Creatinine 2.52 H 2.08 H Glucose Level 134 # 92 # Calcium Level 6.4 L 6.4 L Total Bilirubin 0.2 0.3 Direct Bilirubin 0.00 0.00 Indirect Bilirubin 0.2 0.3 Aspartate Amino Transf (AST/SGOT) 39 50 H Alanine Aminotransferase (ALT/SGPT) 36 23 Alkaline Phosphatase 67 60 Total Protein 4.8 L 3.8 #L Albumin 2.3 L 1.9 L Globulin 2.50 1.90 Albumin/Globulin Ratio 0.92 1.00 Segmented Neutrophils % (Manual) 51 Band Neutrophils % (Manual) 33 H Lymphocytes % (Manual) 7 L Monocytes % (Manual) 6 Metamyelocytes % (manual) 2 H Promyelocytes % (Manual) 1 H Neutrophils # (Manual) 13.4 H Band Neutrophils # 7.5 H Absolute Lymphocytes (Manual) 1.6 Absolute Monocytes (Manual) 1.3 H Metamyelocytes # 0.4 H Promyelocytes # 0.2 H Platelet Estimate NORMAL Giant Platelets 13 H Platelet Morphology Comment @See below Polychromasia 2+ Poikilocytosis 1+ Anisocytosis 1+ Phosphorus Level 7.5 H Magnesium Level 2.3 Random Vancomycin Level 5.4 Lab Scanned Report BLOOD TRANSFUSION Test 08/06/17 07:00 08/06/17 07:06 Blood Gas Specimen Source Blood arterial Blood arterial Arterial Blood Date Drawn 08/06/2017 7:40:04 AM 08/05/2017 9:34:00 PM Arterial Blood pH (Temp corrected) 7.411 7.330 L Arterial Blood pCO2 (Temp correct) 26.2 L 33.7 L Arterial Blood pO2 (Temp corrected) 104.0 H 75.0 L Arterial Blood HCO3 16.3 L 17.4 L Arterial Blood Base Excess -7.2 L -7.6 L Arterial Blood Oxygen Saturation 97.5 93.6 L Brian Test N/A N/A Arterial Blood Gas Puncture Site A-Line A-Line Arterial Blood Carboxyhemoglobin 0.3 0 Arterial Blood Methemoglobin 0.3 0.2 Blood Gas A-a O2 Differential 151.1 H 243.6 H Oxyhemoglobin Percent 96.9 93.4 Total Hemoglobin 9.4 L 12.0 Blood Gas Temperature 37.0 37.0 Blood Gas Respiration Rate 16.0 16.0 Blood Gas Actual Respiration Rate 20 29 Blood Gas Modality VENT - AC VENT - AC FiO2 40.0 50.0 Blood Gas Tidal Volume 500.0 500.0 Blood Gas Low PEEP Setting 5.0 5.0 Blood Gas Notified Whom JUANA CROSS Blood Gas Notified Time 08/06/2017 7:58:53 AM 08/05/2017 9:49:00 PM Medications Medications Current Medications Acetaminophen 650 mg 650 mg Q4H PRN PO pain/fever; Start 07/24/17 at 07:00; Status Future Hold Acetaminophen 100 ml @ 400 mls/hr Q6H IVPB Last administered on 08/06/17 05: 34; Admin Dose 400 MLS/HR; Start 07/26/17 at 18:00 Ondansetron HCl/ Sodium Chloride (Zofran Inj/NS) 54 ml @ 216 mls/hr Q6H PRN IV NAUSEA AND/OR VOMITING Last administered on 08/05/17 03:50; Admin Dose 216 MLS/HR; Start 07/27/17 at 13:00 Phenol (Chloraseptic Throat [place]) 2 spray Q2H PRN MT SORE THROAT Last administered on 07/29/17 18:10; Admin Dose 2 SPRAY; Start 07/29/17 at 13:00 Diphenhydramine HCl (Benadryl) 25 mg Q6H PRN IV SLEEP Last administered on 08/01 00:19; Admin Dose 25 MG; Start 07/31/17 at 13:00 Chlorpromazine 10 mg 10 mg Q6 PRN IM HICCUPS Last administered on 08/04/17 21: 21; Admin Dose 10 MG; Start 08/02/17 at 06:00 Sodium Chloride (NS) 1,000 ml @ 120 mls/hr Q8H20M IV Last administered on 08/06 02:21; Admin Dose 120 MLS/HR; Start 08/03/17 at 18:00 Loratadine (Claritin) 10 mg DAILY NGT Last administered on 08/04/17 09:32; Admin Dose 10 MG; Start 08/04/17 at 09:00 Famotidine 20 mg 20 mg DAILY IV Last administered on 08/06/17 09:12; Admin Dose 20 MG; Start 08/06/17 at 09:00 Meropenem/Sodium Chloride (Merrem 500mg/50 ml(Pmx)) 50 ml @ 100 mls/hr Q12 IVPB Last administered on 08/06/17 10:33; Admin Dose 100 MLS/HR; Start at 21:00 Pantoprazole (Protonix Iv) 40 mg DAILY@06 IV Last administered on 08/06/17 05: 33; Admin Dose 40 MG; Start 08/06/17 at 06:00 Hydromorphone HCl 0.5 mg 0.5 mg Q2H PRN IV PAIN; Start 08/05/17 at 22:30 Propofol (Diprivan) 100 ml @ 2.79 mls/hr Q12H IV Last administered on 08:52; Admin Dose 16.74 MLS/HR; Start 08/05/17 at 23:45 Morphine Sulfate 2 mg 2 mg Q2H PRN IV PAIN Last administered on 08/06/17 07:29 ; Admin Dose 2 MG; Start 08/05/17 at 23:45 Norepinephrine 16 mg/Dextrose 500 ml @ 1.87 mls/hr TITRATE IV Last administered on 08/06/17 02:05; Admin Dose 5.62 MLS/HR; Start 08/06/17 at 00:30 Calcium Gluconate/ Dextrose (Ca Gluc/D5W) 120 ml @ 60 mls/hr ONCE ONCE IVPB Last administered on 08/06/17 11:31; Admin Dose 60 MLS/HR; Start 08/06/17 at 10 :00; Stop 08/06/17 at 11:59 Fercho Mojica DO Aug 06, 2017 11:39
--- NOTE | 2017-08-06 14:13 | PN ---
Date/Time of Note Date/Time of Note DATE: 08/06/17 TIME: 14:08 Assessment/Plan VTE Prophylaxis VTE Prophylaxis Intervention: SCD's Lines/Catheters IV Catheter Type (from Nrs): Central Line (Right IJ) Central line still needed: Yes Urinary Cath still in place: Yes Reason Cath still needed: urinary retention Assessment/Plan Chief Complaint/Hosp Course 51 yo F with bleeding colon cancer taken to the OR for urgent resection with primary anastomosis postop course was ok and was tolerating clears until she develop afib with RVR and diaphoresis was transferred to the ICU, she developed ileus and emesis, CT scan showed anastomotic leak patient taken to the OR for washout and colostomy placement. was on pressors for one night now off. Problems: Assessment/Plan continue support with vent management and iv abx will need to address nutrition soon and may need nasogastric feedings if unable to extubate by tomorrow Subjective 24 Hr Interval Summary Free Text/Dictation CV: off pressors stable rhythm Pulm on vent peep 5 attempting cpap trials today and tomorrow GI: no colostomy function Renal: EJ continued fluid managed per neph Nutrition: IVF ID: on multiple meds stopped cipro and flagyl question need for vanco in setting of EJ ok to ertapenem as broad spectrum coverage Exam/Review of Systems Vital Signs Vitals Vital Signs Date Time Temp Pulse Resp B/P Pulse Ox O2 Delivery O2 Flow Rate FiO2 08/06/17 13:00 86 22 117/47 99 Mechanical Ventilator 08/06/17 11:00 40 08/06/17 07:00 98.1 08/05/17 13:19 5.0 Intake and Output 08/05/17 08/05/17 08/06/17 14:59 22:59 06:59 Intake Total 490 ml 1855.298 ml Output Total 50 ml 1490 ml Balance 440 ml 365.298 ml Exam colostomy viable Results Result Diagram: 08/06/17 0500 08/06/17 0500 Results 24 hrs Laboratory Tests Test 08/05/17 22:40 08/06/17 05:00 08/06/17 05:00 08/06/17 07:00 White Blood Count 19.5 H 22.9 H Red Blood Count 3.85 #L 3.57 L Hemoglobin 9.7 L 8.9 L Hematocrit 30.7 #L 28.1 L Mean Corpuscular Volume 79.7 L 78.7 L Mean Corpuscular Hemoglobin 25.2 L 24.9 L Mean Corpuscular Hemoglobin Concent 31.6 L 31.7 L Red Cell Distribution Width 22.5 H 22.5 H Platelet Count 430 H 412 Mean Platelet Volume 11.7 H 12.5 H Neutrophils % 81.1 H Lymphocytes % 5.9 L Monocytes % 3.6 Eosinophils % 0.1 Basophils % 0.4 Nucleated Red Blood Cells % 0.2 H 0.3 H Neutrophils # 15.8 H Lymphocytes # 1.2 Monocytes # 0.7 Eosinophils # 0.0 Basophils # 0.1 Nucleated Red Blood Cells # 0.0 Sodium Level 134 L 136 Potassium Level 5.4 H 5.6 H Chloride Level 102 104 Carbon Dioxide Level 17 L 19 L Anion Gap 20 H 19 H Blood Urea Nitrogen 80 H 77 H Creatinine 2.52 H 2.08 H Glucose Level 134 # 92 # Calcium Level 6.4 L 6.4 L Total Bilirubin 0.2 0.3 Direct Bilirubin 0.00 0.00 Indirect Bilirubin 0.2 0.3 Aspartate Amino Transf (AST/SGOT) 39 50 H Alanine Aminotransferase (ALT/SGPT) 36 23 Alkaline Phosphatase 67 60 Total Protein 4.8 L 3.8 #L Albumin 2.3 L 1.9 L Globulin 2.50 1.90 Albumin/Globulin Ratio 0.92 1.00 Segmented Neutrophils % (Manual) 51 Band Neutrophils % (Manual) 33 H Lymphocytes % (Manual) 7 L Monocytes % (Manual) 6 Metamyelocytes % (manual) 2 H Promyelocytes % (Manual) 1 H Neutrophils # (Manual) 13.4 H Band Neutrophils # 7.5 H Absolute Lymphocytes (Manual) 1.6 Absolute Monocytes (Manual) 1.3 H Metamyelocytes # 0.4 H Promyelocytes # 0.2 H Platelet Estimate NORMAL Giant Platelets 13 H Platelet Morphology Comment @See below Polychromasia 2+ Poikilocytosis 1+ Anisocytosis 1+ Phosphorus Level 7.5 H Magnesium Level 2.3 Random Vancomycin Level 5.4 Lab Scanned Report BLOOD TRANSFUSION Blood Gas Specimen Source Blood arterial Arterial Blood Date Drawn 08/06/2017 7:40:04 AM Arterial Blood pH (Temp corrected) 7.411 Arterial Blood pCO2 (Temp correct) 26.2 L Arterial Blood pO2 (Temp corrected) 104.0 H Arterial Blood HCO3 16.3 L Arterial Blood Base Excess -7.2 L Arterial Blood Oxygen Saturation 97.5 Brian Test N/A Arterial Blood Gas Puncture Site A-Line Arterial Blood Carboxyhemoglobin 0.3 Arterial Blood Methemoglobin 0.3 Blood Gas A-a O2 Differential 151.1 H Oxyhemoglobin Percent 96.9 Total Hemoglobin 9.4 L Blood Gas Temperature 37.0 Blood Gas Respiration Rate 16.0 Blood Gas Actual Respiration Rate 20 Blood Gas Modality VENT - AC FiO2 40.0 Blood Gas Tidal Volume 500.0 Blood Gas Low PEEP Setting 5.0 Blood Gas Notified Whom JLD Blood Gas Notified Time 08/06/2017 7:58:53 AM Test 08/06/17 07:06 Blood Gas Specimen Source Blood arterial Arterial Blood Date Drawn 08/05/2017 9:34:00 PM Arterial Blood pH (Temp corrected) 7.330 L Arterial Blood pCO2 (Temp correct) 33.7 L Arterial Blood pO2 (Temp corrected) 75.0 L Arterial Blood HCO3 17.4 L Arterial Blood Base Excess -7.6 L Arterial Blood Oxygen Saturation 93.6 L Brian Test N/A Arterial Blood Gas Puncture Site A-Line Arterial Blood Carboxyhemoglobin 0 Arterial Blood Methemoglobin 0.2 Blood Gas A-a O2 Differential 243.6 H Oxyhemoglobin Percent 93.4 Total Hemoglobin 12.0 Blood Gas Temperature 37.0 Blood Gas Respiration Rate 16.0 Blood Gas Actual Respiration Rate 29 Blood Gas Modality VENT - AC FiO2 50.0 Blood Gas Tidal Volume 500.0 Blood Gas Low PEEP Setting 5.0 Blood Gas Notified Whom DY Blood Gas Notified Time 08/05/2017 9:49:00 PM Medications Medications Current Medications Acetaminophen 650 mg 650 mg Q4H PRN PO pain/fever; Start 07/24/17 at 07:00; Status Future Hold Acetaminophen 100 ml @ 400 mls/hr Q6H IVPB Last administered on 08/06/17 12: 18; Admin Dose 400 MLS/HR; Start 07/26/17 at 18:00 Ondansetron HCl/ Sodium Chloride (Zofran Inj/NS) 54 ml @ 216 mls/hr Q6H PRN IV NAUSEA AND/OR VOMITING Last administered on 08/05/17 03:50; Admin Dose 216 MLS/HR; Start 07/27/17 at 13:00 Phenol (Chloraseptic Throat [place]) 2 spray Q2H PRN MT SORE THROAT Last administered on 07/29/17 18:10; Admin Dose 2 SPRAY; Start 07/29/17 at 13:00 Diphenhydramine HCl (Benadryl) 25 mg Q6H PRN IV SLEEP Last administered on 08/01 00:19; Admin Dose 25 MG; Start 07/31/17 at 13:00 Chlorpromazine 10 mg 10 mg Q6 PRN IM HICCUPS Last administered on 08/04/17 21: 21; Admin Dose 10 MG; Start 08/02/17 at 06:00 Sodium Chloride (NS) 1,000 ml @ 120 mls/hr Q8H20M IV Last administered on 08/06 12:30; Admin Dose 120 MLS/HR; Start 08/03/17 at 18:00 Loratadine (Claritin) 10 mg DAILY NGT Last administered on 08/04/17 09:32; Admin Dose 10 MG; Start 08/04/17 at 09:00 Famotidine 20 mg 20 mg DAILY IV Last administered on 08/06/17 09:12; Admin Dose 20 MG; Start 08/06/17 at 09:00 Meropenem/Sodium Chloride (Merrem 500mg/50 ml(Pmx)) 50 ml @ 100 mls/hr Q12 IVPB Last administered on 08/06/17 10:33; Admin Dose 100 MLS/HR; Start at 21:00 Pantoprazole (Protonix Iv) 40 mg DAILY@06 IV Last administered on 08/06/17 05: 33; Admin Dose 40 MG; Start 08/06/17 at 06:00 Hydromorphone HCl 0.5 mg 0.5 mg Q2H PRN IV PAIN; Start 08/05/17 at 22:30 Propofol (Diprivan) 100 ml @ 2.79 mls/hr Q12H IV Last administered on 08:52; Admin Dose 16.74 MLS/HR; Start 08/05/17 at 23:45 Morphine Sulfate 2 mg 2 mg Q2H PRN IV PAIN Last administered on 08/06/17 07:29 ; Admin Dose 2 MG; Start 08/05/17 at 23:45 Norepinephrine/ Dextrose (Levophed/D5W) 500 ml @ 1.87 mls/hr TITRATE IV Last administered on 08/06/17t 02:05; Admin Dose 5.62 MLS/HR; Start 08/06/17 at 00:30 Hilario BOTELLO Aug 06, 2017 14:13
--- NOTE | 2017-08-06 14:52 | CONS ---
DATE OF ADMISSION: 07/24/2017 DATE OF CONSULTATION: 07/26/2017 TYPE OF CONSULTATION: Infectious Disease. REASON FOR CONSULTATION: Antibiotic management. HISTORY OF PRESENT ILLNESS: Saira Kern is a 51-year-old female who was admitted on 07/23 with [facility] problems and is being seen for antibiotic management. Her chief complaint on admission was rec charline pain and rectal bleeding. Her problems include: 1. Coronary artery disease with congestive heart failure. 2. Paroxysmal atrial fibrillation. 3. Hyperlipidemia. 4. Recently diagnosed sigmoid adenocarcinoma, that required a hemicolectomy. The patient presented to the emergency room with rectal bleeding, abdominal pain, shortness of breat h and anemia with hemoglobin of 6.6. She had 3 days prior to admission, she complained of dizziness which got significantly worse on the day prior to admission with dyspnea on exertion. On the day p rior to admission, she had bowel movements up to 8 with rectal bleeding and subsequently bright red blood per rectum. She had rectal pain radiating up towards her abdomen. She was taken off Xarelto on Saturday, 07/22, even though she has atrial fibrillation. Patient was made n.p.o. HOSPITAL COURSE: She was seen by Dr. Aldana, surgery, in consultation on the . He noted that she had sigmoid cancer, colon cancer, and bleeding from the lower gastrointestinal tract. She was on bl ood thinners, which were stopped 2 days ago. According to his note on the , she underwent lapar oscopic converted to open extended left hemicolectomy, mobilization of the splenic flexure, laparosc opic lysis of adhesions, which took 2 hours, therapeutic injection of subcutaneous local anesthesia. She was kept in the ICU under close monitoring. On the , her white count was 10.7. She was s een in consultation by Dr. Mojica in cardiology. Dr. Aldana noted on the that she had some emesis, bilious, and was made n.p.o. again. White count on the was 10.7. Today she has a central line in the right IJ, needed for pressors and antibiotics. She has a urinary catheter. She is post wanda stomotic leak with sepsis, status post exploratory laparotomy with drainage of the abscesses, drain placement, partial colectomy and colostomy, postop day #1. She had her surgery on the 6th, status post left hemicolectomy for sigmoid adenocarcinoma and mass, post op day #9. The patient was erica t to surgery yesterday for an anastomotic leak, drainage of abscess, drain placement. She is on bro ad spectrum antibiotic therapy. She is on mechanical ventilation. She had respiratory distress, at rial fibrillation. PAST MEDICAL HISTORY: Operations as outlined. FAMILY HISTORY: Noncontributory. SOCIAL HISTORY: She does not smoke, drink or abuse drugs. ALLERGIES: NONE TO PENICILLIN, SULFA OR FOODS. MEDICATIONS: Per chart. REVIEW OF SYSTEMS: As per HPI. PHYSICAL EXAMINATION: GENERAL: The patient is intubated, on Levophed. VITAL SIGNS: She is afebrile. SKIN: Without generalized rash. HEENT: She has an ET tube, an NG tube. NECK: Supple. LYMPH NODES: None palpable. CHEST: Decreased breath sounds at the bases. HEART: Without murmur or gallop. ABDOMEN: Soft, but she is intubated and on a respirator. She is status post exploratory laparotomy with open surgery, colostomy bag is in place. There are [address] as well. EXTREMITIES: She is anasarcous. RECTAL AND GENITAL: Deferred. NEUROLOGIC: Could not be done secondary to patient being intubated. The report is that when she is up, she is alert and responsive. ANCILLARY LABORATORY DATA: White count 22.9, H and H of 8.9 and 28.1, platelet count 412,000. BUN and creatinine 77/2.08. Chest x-ray: She has an ET tube, an NG tube, a new right central line, rig ht IJ in the superior vena cava. She has cardiomegaly. She has new left pleural effusion with left lung base atelectasis versus airspace disease. Right lung is clear, no pneumothorax. IMPRESSION AND PLAN: She received vancomycin and ertapenem. She is now on meropenem. She has cult ures of her wounds pending, aerobic and anaerobic and AFB smears. Will continue her on vancomycin a nd meropenem. I will dictate my findings to Dr. Lroa, Dr. Aldana, Dr. Mojica and Dr. Rowdy Kiser and Dr. Mattson. Dictated By: LUIS FERNANDO SURESH MD, JD/VINNY Conf#: [id number] [facility]#: [id number]
[2017-08-07] VITALS (61 sets, daily range): BP systolic 111–191; BP diastolic 48–81; PULSE 75–107; RESP 16–30
[2017-08-07] MEDS: ACETAMINOPHEN 1000MG/100ML IV 100 ML IVPB SCH ×4 (00:47→17:07)
[2017-08-07] MEDS: PROPOFOL 100 ML IV SCH ×4 (01:44→22:34)
[2017-08-07] MEDS: SOD CHLORIDE 0.9% 1,000 ML IV SCH ×3 (05:02→22:34)
[2017-08-07 05:03] LABS: ABNORMAL IP MESSAGE 1; BASOPHIL # 0.1 10^3/ul (0.0-0.1); BASOPHILS % 0.6 % (0.0-2.0); HEMATOCRIT 24.4 % (37.0-47.0); HEMOGLOBIN 7.5 g/dl (12.0-16.0); LYMPHOCYTES # 1.4 10^3/ul (0.8-2.9); LYMPHOCYTES % 8.9 % (15.0-51.0); MEAN CORPUSCULAR HEMOGLOBIN 24.8 pg (29.0-33.0); MEAN CORPUSCULAR HGB CONC 30.7 g/dl (32.0-37.0); MEAN CORPUSCULAR VOLUME 80.8 fl (82.0-101.0); MEAN PLATELET VOLUME 12.4 fl (7.4-10.4); MONOCYTE # 0.5 10^3/ul (0.3-0.9); MONOCYTES % 3.4 % (0.0-11.0); NEUTROPHIL # 11.9 10^3/ul (1.6-7.5); NEUTROPHILS % 78.3 % (39.0-77.0); NUCLEATED RED BLOOD CELLS # 0.1 10^3/ul (0.0-0.0); NUCLEATED RED BLOOD CELLS% 0.8 /100WBC (0.0-0.0); PLATELET COUNT 339 10^3/UL (140-415); RED BLOOD COUNT 3.02 10^6/ul (4.20-5.40); RED CELL DISTRIBUTION WIDTH 22.5 % (11.5-14.5); WHITE BLOOD COUNT 15.2 10^3/ul (4.8-10.8)
[2017-08-07 05:14] LABS: POSITIVE DIFF @See below
[2017-08-07 05:35] LABS: MAGNESIUM 2.6 mg/dl (1.7-2.5); PHOSPHORUS 4.6 mg/dl (2.5-4.9)
[2017-08-07] MEDS: PANTOPRAZOLE 40 MG INJ IV SCH (05:35)
[2017-08-07 05:37] LABS: ALBUMIN 2.1 g/dl (3.3-4.9); ALBUMIN/GLOBULIN RATIO 0.87; BILIRUBIN,INDIRECT 0.3 mg/dl (0-1.1); BILIRUBIN,TOTAL 0.3 mg/dl (0.2-1.3); CALCIUM 6.7 mg/dl (8.4-10.2); CREATININE 1.04 mg/dl (0.44-1.00); POTASSIUM 4.8 mmol/L (3.5-5.1); TOTAL PROTEIN 4.5 g/dl (6.1-8.1)
--- NOTE | 2017-08-07 07:12 | RADRPT ---
PROCEDURE: XR Chest. CLINICAL INDICATION: Pneumonia, CHF. TECHNIQUE: Single portable view of the chest was obtained. COMPARISON: 03/10/2014. FINDINGS: An endotracheal tube terminates 3 cm above the tessie. A right internal jugular central venous sean ter tip overlies the distal superior vena cava. A nasogastric tube extends below the left hemidiaphr agm. There is no evidence of a pneumothorax. The cardiomediastinal silhouette is stable in size and configuration. Interval appearing dense left retrocardiac opacification with silhouetting of the left hemidiaphragm is demonstrated with consider ations including pleural effusion with atelectasis and/or consolidation. Interval increased and left perihilar lower lobe interstitial parenchymal opacities representing either atypical unilateral lef t-sided pulmonary edema or pneumonia. IMPRESSION: 1. Interval dense left retrocardiac opacification and silhouetting the left hemidiaphragm with consi derations including pleural effusion with atelectasis and/or consolidation. 2. Interval left perihilar lower lobe parenchymal opacities representing pneumonia or atypical unil ateral left-sided pulmonary edema. 3. Support lines and tubes in satisfactory position. RPTAT: HRSR Physician Carol Date Time Electronically viewed and signed by Physician Carol on 08/07/2017 07:12 RR/
[2017-08-07 07:57] LABS: AADO2 Arterial 74.7 mmHg (7.0-24.0); Arterial Base Excess -5.9 mmol/L (-3.0-3); Arterial COHb 0.1 % (0.0-3.0); Arterial Fraction of Oxyhgb 96.9 % (93.0-99.0); Arterial HCO3 17.6 mmol/L (22.0-26.0); Arterial MetHb 0.6 % (0.0-1.5); Arterial Total Hemglobin 6.7 g/dl (12.0-18.0); MODE VENT - AC
[2017-08-07] MEDS: LORATADINE 10 MG TAB NGT SCH (08:01)
[2017-08-07] MEDS: MEROPENEM 500MG/50 ML (PMX) 50 ML IVPB SCH (08:32)
--- NOTE | 2017-08-07 09:30 | CONS ---
Date/Time of Note Date/Time of Note DATE: 08/07/17 TIME: 09:29 Consult Date/Type/Reason Admit Date/Time Jul 24, 2017 at 06:16 Initial Consult Date 08/05/17 Type of Consultation: Pulmonary Ordering Provider: RAE CALVO Subjective Follows commands off sedation. Remains hemodynamically stable. Still with significant lethargy. Objective Vital Signs Date Time Temp Pulse Resp B/P Pulse Ox O2 Delivery O2 Flow Rate FiO2 08/07/17 09:00 79 23 128/53 99 Mechanical Ventilator 08/07/17 07:00 98.8 08/07/17 05:01 30 08/05/17 13:19 5.0 Intake and Output 08/06/17 08/06/17 08/07/17 15:00 23:00 07:00 Intake Total 2207.18 ml 1194.00 ml 1414.06 ml Output Total 1750 ml 1160 ml 935 ml Balance 457.18 ml 34.00 ml 479.06 ml Exam PHYSICAL EXAMINATION: GENERAL: Well-nourished, well-developed lady, intubated on mechanical ventilation, appears comfortable at rest, no acute distress. VITAL SIGNS: NECK: Supple, no JVD or lymphadenopathy. CARDIAC: S1, S2, no added sounds or murmurs. CHEST: Diminished air entry bilaterally. ABDOMEN: Soft, nontender. No guarding or rebound. EXTREMITIES: No cyanosis, clubbing, 1+ edema. NEUROLOGIC: Generalized weakness. Results/Medications Result Diagram: 08/07/17 0442 08/07/17 0442 Results 24 hrs Laboratory Tests Test 08/07/17 04:42 08/07/17 07:00 White Blood Count 15.2 #H Red Blood Count 3.02 L Hemoglobin 7.5 L Hematocrit 24.4 L Mean Corpuscular Volume 80.8 L Mean Corpuscular Hemoglobin 24.8 L Mean Corpuscular Hemoglobin Concent 30.7 L Red Cell Distribution Width 22.5 H Platelet Count 339 Mean Platelet Volume 12.4 H Neutrophils % 78.3 H Lymphocytes % 8.9 L Monocytes % 3.4 Eosinophils % 0.0 Basophils % 0.6 Nucleated Red Blood Cells % 0.8 H Neutrophils # 11.9 H Lymphocytes # 1.4 Monocytes # 0.5 Eosinophils # 0.0 Basophils # 0.1 Nucleated Red Blood Cells # 0.1 H Sodium Level 142 Potassium Level 4.8 Chloride Level 110 Carbon Dioxide Level 22 Anion Gap 15 Blood Urea Nitrogen 53 H Creatinine 1.04 #H Glucose Level 81 Calcium Level 6.7 L Phosphorus Level 4.6 # Magnesium Level 2.6 H Total Bilirubin 0.3 Direct Bilirubin 0.00 Indirect Bilirubin 0.3 Aspartate Amino Transf (AST/SGOT) 67 H Alanine Aminotransferase (ALT/SGPT) 29 Alkaline Phosphatase 76 Total Protein 4.5 L Albumin 2.1 L Globulin 2.40 Albumin/Globulin Ratio 0.87 Blood Gas Specimen Source Blood arterial Arterial Blood Date Drawn 08/07/2017 7:40:18 AM Arterial Blood pH (Temp corrected) 7.443 Arterial Blood pCO2 (Temp correct) 26.3 L Arterial Blood pO2 (Temp corrected) 108.3 H Arterial Blood HCO3 17.6 L Arterial Blood Base Excess -5.9 L Arterial Blood Oxygen Saturation 97.6 Brian Test N/A Arterial Blood Gas Puncture Site A-Line Arterial Blood Carboxyhemoglobin 0.1 Arterial Blood Methemoglobin 0.6 Blood Gas A-a O2 Differential 74.7 H Oxyhemoglobin Percent 96.9 Total Hemoglobin 6.7 L Blood Gas Temperature 37.0 Blood Gas Respiration Rate 16.0 Blood Gas Actual Respiration Rate 24 Blood Gas Modality VENT - AC FiO2 30.0 Blood Gas Tidal Volume 500.0 Blood Gas Low PEEP Setting 5.0 Blood Gas Notified Whom JLD Blood Gas Notified Time 08/07/2017 7:57:24 AM Medications Current Medications Acetaminophen 650 mg 650 mg Q4H PRN PO pain/fever; Start 07/24/17 at 07:00; Status Future Hold Acetaminophen 100 ml @ 400 mls/hr Q6H IVPB Last administered on 08/07/17 05: 35; Admin Dose 400 MLS/HR; Start 07/26/17 at 18:00 Ondansetron HCl/ Sodium Chloride (Zofran Inj/NS) 54 ml @ 216 mls/hr Q6H PRN IV NAUSEA AND/OR VOMITING Last administered on 08/05/17 03:50; Admin Dose 216 MLS/HR; Start 07/27/17 at 13:00 Phenol (Chloraseptic Throat [place]) 2 spray Q2H PRN MT SORE THROAT Last administered on 07/29/17 18:10; Admin Dose 2 SPRAY; Start 07/29/17 at 13:00 Diphenhydramine HCl (Benadryl) 25 mg Q6H PRN IV SLEEP Last administered on 08/01 00:19; Admin Dose 25 MG; Start 07/31/17 at 13:00 Chlorpromazine 10 mg 10 mg Q6 PRN IM HICCUPS Last administered on 08/04/17 21: 21; Admin Dose 10 MG; Start 08/02/17 at 06:00 Sodium Chloride (NS) 1,000 ml @ 120 mls/hr Q8H20M IV Last administered on 08/07 05:02; Admin Dose 120 MLS/HR; Start 08/03/17 at 18:00 Loratadine 10 mg 10 mg DAILY NGT Last administered on 08/04/17 09:32; Admin Dose 10 MG; Start 08/04/17 at 09:00 Meropenem/Sodium Chloride (Merrem 500mg/50 ml(Pmx)) 50 ml @ 100 mls/hr Q12 IVPB Last administered on 08/07/17 08:32; Admin Dose 100 MLS/HR; Start at 21:00 Pantoprazole (Protonix Iv) 40 mg DAILY@06 IV Last administered on 08/07/17 05: 35; Admin Dose 40 MG; Start 08/06/17 at 06:00 Hydromorphone HCl 0.5 mg 0.5 mg Q2H PRN IV PAIN; Start 08/05/17 at 22:30 Propofol (Diprivan) 100 ml @ 2.79 mls/hr Q12H IV Last administered on 08:32; Admin Dose 16.74 MLS/HR; Start 08/05/17 at 23:45 Morphine Sulfate 2 mg 2 mg Q2H PRN IV PAIN Last administered on 08/06/17 07:29 ; Admin Dose 2 MG; Start 08/05/17 at 23:45 Norepinephrine 16 mg/Dextrose 500 ml @ 1.87 mls/hr TITRATE IV Last administered on 08/06/17 02:05; Admin Dose 5.62 MLS/HR; Start 08/06/17 at 00:30 Vancomycin HCl/ Sodium Chloride (Vancocin/NS) 250 ml @ 83.333 mls/ hr Q24H IVPB ; Start 08/07/17 at 12:00 Assessment/Plan Chief Complaint/Hosp Course IMPRESSION 1. Status post exploratory laparotomy and now ileostomy. 2. Recent bowel resection for colon carcinoma. 3. History of atrial fibrillation, congestive cardiac failure. PLAN: 1. CPAP trial, hopefully safely extubate. Postextubation bronchodilators as needed 2. Post-extubation incentive spirometry. 3. Continue postop surgical recommendations including nasogastric tube suction. 4. Deep venous thrombosis and gastrointestinal prophylaxis. 5. Continue antibiotics. Keep in ICU. Critical care time 40 minutes. Problems: YONATAN MAC MD, [facility] Aug 07, 2017 09:30
[2017-08-07] MEDS: morphine 2 MG INJ IV PRN ×2 (10:48→11:00)
[2017-08-07] MEDS: HYDROmorphONE 0.5 MG/0.5 ML SYG IV PRN ×2 (10:50→19:55)
[2017-08-07] MEDS ORDERED: CALCIUM GLUCONATE IVPB ONE (11:00)
[2017-08-07] MEDS ORDERED: DEXTROSE 5% IVPB ONE (11:00)
--- NOTE | 2017-08-07 11:31 | PN ---
Date/Time of Note Date/Time of Note DATE: 08/07/17 TIME: 11:13 Assessment/Plan VTE Prophylaxis VTE Prophylaxis Intervention: SCD's Lines/Catheters IV Catheter Type (from Nrs): A Line Urinary Cath still in place: Yes Reason Cath still needed: urinary retention, other (indicate) (Intubated) Assessment/Plan Assessment/Plan 51 year old female with: 1. Postop anastomotic leak with sepsis, status post ex lap with drainage of abscesses, drain placement, partial colectomy and colostomy POD#2. Status post Left hemicolectomy for sigmoid adenocarcinoma/mass POD#10 Patient on broad-spectrum antibiotics currently, appreciate infectious disease recommendation, agree with meropenem and vancomycin currently. WBC trending down no bandemia today. On CPAP trial may be extubated today, continue volume management with assistance of nephrology as patient does have CHF and does get volume overloaded , unfortunately she also had an episode of acute kidney injury while septic. Follow-up further recommendations from Dr. Aldana Patient is otherwise fairly stable postoperatively. No pressors. 2. Respiratory distress, volume overload, pulmonary edema and also possible aspiration pneumonia versus healthcare associated pneumonia, no pulmonary embolus. CPAP trial today, renal function improved, chest x-ray with a still sign of volume overload, will give a dose of Lasix today with blood transfusion. Appreciate recommendations from nephrology, patient being diuresed as needed. On IV antibiotics. 3. Atrial fibrillation, chronic, currently in sinus rhythm in the 80s. Off amiodarone drip and digoxin. Appreciate cardiology recommendations. Anticoagulation discontinued, discussed with cardiology for now will just leave her off anticoagulation for the remainder of her postoperative course. Electrolyte repletion as needed. 4. Chronic congestive heart failure, chronic diastolic dysfunction and ejection fraction of 55% on latest outpatient echocardiogram in January 2017 and confirmed to be 50% on this admission. Currently in volume overload, much improved however, appreciate recommendations from Dr. Kiser On diuresis as needed. Monitor volume status. 5. Acute kidney injury, in setting of sepsis, also had the contrast studies 2. Renal function recovering and keeps improving this morning. Leal catheter in place, on diuresis. Monitor urine output, decrease IV fluids. 6. Anemia, acute on chronic, postop: Agree with transfusion of 2 units of packed red blood cells. 7. Hypertension, all antihypertensive on hold in setting of sepsis Prophylaxis: Off anticoagulation, SCDs, Pepcid for GI prophylaxis. Disposition: Patient currently on the vent, continue volume management with diuresis, renal function improving, on multiple antibiotics, CPAP trial today. Blood transfusion, follow up further recommendation from infectious disease, nephrology and pulmonary. Subjective 24 Hr Interval Summary Free Text/Dictation Patient improving, renal function much improved, however still with signs of volume overload. Her hemoglobin did drop to 7.9, agree with blood transfusions but needs to be diuresed between the 2 units of packed red blood cells. IV fluids will be decreased to 100 cc an hour, again chest x-ray consistent with volume overload. Exam/Review of Systems Vital Signs Vitals Vital Signs Date Time Temp Pulse Resp B/P Pulse Ox O2 Delivery O2 Flow Rate FiO2 08/07/17 10:00 85 27 151/66 97 CPAP 08/07/17 07:00 98.8 08/07/17 05:01 30 08/05/17 13:19 5.0 Intake and Output 08/06/17 08/06/17 08/07/17 15:00 23:00 07:00 Intake Total 2207.18 ml 1194.00 ml 1414.06 ml Output Total 1750 ml 1160 ml 935 ml Balance 457.18 ml 34.00 ml 479.06 ml Exam Constitutional: alert, other (Patient awake on minimal dose of propofol or off propofol. She follows command.) Respiratory: diminished breath sounds (Bilaterally), other (On mechanical ventilation) Cardiovascular: nl pulses, regular rate and rhythm Gastrointestinal: non-tender, soft Musculoskeletal: nl extremities to inspection Extremities: normal pulses Neurological: ASSISTANT LIBRARIAN II-XII intact, lethargic (Under sedation currently with propofol), other (Intubated and sedated) Results Result Diagram: 08/07/172 08/07/17441 Results 24 hrs Laboratory Tests Test 08/07/17 04:42 08/07/17 07:00 White Blood Count 15.2 #H Red Blood Count 3.02 L Hemoglobin 7.5 L Hematocrit 24.4 L Mean Corpuscular Volume 80.8 L Mean Corpuscular Hemoglobin 24.8 L Mean Corpuscular Hemoglobin Concent 30.7 L Red Cell Distribution Width 22.5 H Platelet Count 339 Mean Platelet Volume 12.4 H Neutrophils % 78.3 H Lymphocytes % 8.9 L Monocytes % 3.4 Eosinophils % 0.0 Basophils % 0.6 Nucleated Red Blood Cells % 0.8 H Neutrophils # 11.9 H Lymphocytes # 1.4 Monocytes # 0.5 Eosinophils # 0.0 Basophils # 0.1 Nucleated Red Blood Cells # 0.1 H Sodium Level 142 Potassium Level 4.8 Chloride Level 110 Carbon Dioxide Level 22 Anion Gap 15 Blood Urea Nitrogen 53 H Creatinine 1.04 #H Glucose Level 81 Calcium Level 6.7 L Phosphorus Level 4.6 # Magnesium Level 2.6 H Total Bilirubin 0.3 Direct Bilirubin 0.00 Indirect Bilirubin 0.3 Aspartate Amino Transf (AST/SGOT) 67 H Alanine Aminotransferase (ALT/SGPT) 29 Alkaline Phosphatase 76 Total Protein 4.5 L Albumin 2.1 L Globulin 2.40 Albumin/Globulin Ratio 0.87 Blood Gas Specimen Source Blood arterial Arterial Blood Date Drawn 08/07/2017 7:40:18 AM Arterial Blood pH (Temp corrected) 7.443 Arterial Blood pCO2 (Temp correct) 26.3 L Arterial Blood pO2 (Temp corrected) 108.3 H Arterial Blood HCO3 17.6 L Arterial Blood Base Excess -5.9 L Arterial Blood Oxygen Saturation 97.6 Brian Test N/A Arterial Blood Gas Puncture Site A-Line Arterial Blood Carboxyhemoglobin 0.1 Arterial Blood Methemoglobin 0.6 Blood Gas A-a O2 Differential 74.7 H Oxyhemoglobin Percent 96.9 Total Hemoglobin 6.7 L Blood Gas Temperature 37.0 Blood Gas Respiration Rate 16.0 Blood Gas Actual Respiration Rate 24 Blood Gas Modality VENT - AC FiO2 30.0 Blood Gas Tidal Volume 500.0 Blood Gas Low PEEP Setting 5.0 Blood Gas Notified Whom JLD Blood Gas Notified Time 08/07/2017 7:57:24 AM Imaging Free Text/Dictation PROCEDURE: XR Chest. CLINICAL INDICATION: Pneumonia, CHF. TECHNIQUE: Single portable view of the chest was obtained. COMPARISON: 03/10/2014. FINDINGS: An endotracheal tube terminates 3 cm above the tessie. A right internal jugular central venous catheter tip overlies the distal superior vena cava. A nasogastric tube extends below the left hemidiaphragm. There is no evidence of a pneumothorax. The cardiomediastinal silhouette is stable in size and configuration. Interval appearing dense left retrocardiac opacification with silhouetting of the left hemidiaphragm is demonstrated with considerations including pleural effusion with atelectasis and/or consolidation. Interval increased and left perihilar lower lobe interstitial parenchymal opacities representing either atypical unilateral left-sided pulmonary edema or pneumonia. IMPRESSION: 1. Interval dense left retrocardiac opacification and silhouetting the left hemidiaphragm with considerations including pleural effusion with atelectasis and/or consolidation. 2. Interval left perihilar lower lobe parenchymal opacities representing pneumonia or atypical unilateral left-sided pulmonary edema. 3. Support lines and tubes in satisfactory position. RPTAT: HRSR Physician Carol Date Time Electronically viewed and signed by Physician Carol on 08/07/2017 07 :12 Medications Medications Current Medications Acetaminophen 650 mg 650 mg Q4H PRN PO pain/fever; Start 07/24/17 at 07:00; Status Future Hold Acetaminophen 100 ml @ 400 mls/hr Q6H IVPB Last administered on 08/07/17 05: 35; Admin Dose 400 MLS/HR; Start 07/26/17 at 18:00 Ondansetron HCl/ Sodium Chloride (Zofran Inj/NS) 54 ml @ 216 mls/hr Q6H PRN IV NAUSEA AND/OR VOMITING Last administered on 08/05/17 03:50; Admin Dose 216 MLS/HR; Start 07/27/17 at 13:00 Phenol (Chloraseptic Throat [place]) 2 spray Q2H PRN MT SORE THROAT Last administered on 07/29/17 18:10; Admin Dose 2 SPRAY; Start 07/29/17 at 13:00 Diphenhydramine HCl (Benadryl) 25 mg Q6H PRN IV SLEEP Last administered on 08/01 00:19; Admin Dose 25 MG; Start 07/31/17 at 13:00 Chlorpromazine 10 mg 10 mg Q6 PRN IM HICCUPS Last administered on 08/04/17 21: 21; Admin Dose 10 MG; Start 08/02/17 at 06:00 Sodium Chloride (NS) 1,000 ml @ 100 mls/hr Q10H IV Last administered on 05:02; Admin Dose 120 MLS/HR; Start 08/03/17 at 18:00 Loratadine (Claritin) 10 mg DAILY NGT Last administered on 08/04/17 09:32; Admin Dose 10 MG; Start 08/04/17 at 09:00 Pantoprazole (Protonix Iv) 40 mg DAILY@06 IV Last administered on 08/07/17 05: 35; Admin Dose 40 MG; Start 08/06/17 at 06:00 Hydromorphone HCl 0.5 mg 0.5 mg Q2H PRN IV PAIN Last administered on 08/07/17 10:50; Admin Dose 0.5 MG; Start 08/05/17 at 22:30 Propofol (Diprivan) 100 ml @ 2.79 mls/hr Q12H IV Last administered on 08:32; Admin Dose 16.74 MLS/HR; Start 08/05/17 at 23:45 Morphine Sulfate 2 mg 2 mg Q2H PRN IV PAIN Last administered on 08/07/17 10:48 ; Admin Dose 2 MG; Start 08/05/17 at 23:45 Norepinephrine 16 mg/Dextrose 500 ml @ 1.87 mls/hr TITRATE IV Last administered on 08/06/17 02:05; Admin Dose 5.62 MLS/HR; Start 08/06/17 at 00:30 Vancomycin HCl 1.5 gm/Sodium Chloride 250 ml @ 83.333 mls/ hr Q24H IVPB ; Start 08/07/17 at 12:00 Calcium Gluconate/ Dextrose (Ca Gluc/D5W) 140 ml @ 35 mls/hr ONCE ONCE IVPB Last administered on 08/07/17 10:58; Admin Dose 35 MLS/HR; Start 08/07/17 at 11 :00; Stop 08/07/17 at 14:59 Furosemide 40 mg 40 mg ONCE IV ; Start 08/07/17 at 10:30; Stop 08/07/17 at 23:00 Meropenem/Sodium Chloride (Merrem 1 Gm/50 ml (Pmx)) 50 ml @ 100 mls/hr Q12 IVPB ; Start 08/07/17 at 21:00 RAE CALVO Aug 07, 2017 11:24
[2017-08-07 11:34] LABS: AADO2 Arterial 90.2 mmHg (7.0-24.0); Arterial Base Excess -4.7 mmol/L (-3.0-3); Arterial COHb 0.3 % (0.0-3.0); Arterial Fraction of Oxyhgb 94.4 % (93.0-99.0); Arterial MetHb 0.2 % (0.0-1.5); Arterial Total Hemglobin 9.3 g/dl (12.0-18.0); Blood Gas PS 10; MODE VENT - CPAP
--- NOTE | 2017-08-07 11:55 | PN ---
Date/Time of Note Date/Time of Note DATE: 08/07/17 TIME: 11:54 Assessment/Plan VTE Prophylaxis VTE Prophylaxis Intervention: SCD's Lines/Catheters IV Catheter Type (from Nrs): A Line Urinary Cath still in place: Yes Reason Cath still needed: urinary retention Assessment/Plan Chief Complaint/Hosp Course 51 yo F with bleeding colon cancer taken to the OR for urgent resection with primary anastomosis postop course was ok and was tolerating clears until she develop afib with RVR and diaphoresis was transferred to the ICU, she developed ileus and emesis, CT scan showed anastomotic leak patient taken to the OR for washout and colostomy placement. was on pressors for one night now off. Problems: Assessment/Plan await extubation to start oral intake Subjective 24 Hr Interval Summary Free Text/Dictation undergoing cpap trials no further use of pressors low hgb transfusing 2 units Exam/Review of Systems Vital Signs Vitals Vital Signs Date Time Temp Pulse Resp B/P Pulse Ox O2 Delivery O2 Flow Rate FiO2 08/07/17 10:00 85 27 151/66 97 CPAP 08/07/17 07:00 98.8 08/07/17 05:01 30 08/05/17 13:19 5.0 Intake and Output 08/06/17 08/06/17 08/07/17 14:59 22:59 06:59 Intake Total 2065.44 ml 1318.98 ml 1430.82 ml Output Total 1675 ml 1115 ml 955 ml Balance 390.44 ml 203.98 ml 475.82 ml Exam colostomy viable with some liquid output Results Result Diagram: 08/07/17 0442 08/07/17 0442 Results 24 hrs Laboratory Tests Test 08/07/17 04:42 08/07/17 07:00 08/07/17 11:11 White Blood Count 15.2 #H Red Blood Count 3.02 L Hemoglobin 7.5 L Hematocrit 24.4 L Mean Corpuscular Volume 80.8 L Mean Corpuscular Hemoglobin 24.8 L Mean Corpuscular Hemoglobin Concent 30.7 L Red Cell Distribution Width 22.5 H Platelet Count 339 Mean Platelet Volume 12.4 H Neutrophils % 78.3 H Lymphocytes % 8.9 L Monocytes % 3.4 Eosinophils % 0.0 Basophils % 0.6 Nucleated Red Blood Cells % 0.8 H Neutrophils # 11.9 H Lymphocytes # 1.4 Monocytes # 0.5 Eosinophils # 0.0 Basophils # 0.1 Nucleated Red Blood Cells # 0.1 H Sodium Level 142 Potassium Level 4.8 Chloride Level 110 Carbon Dioxide Level 22 Anion Gap 15 Blood Urea Nitrogen 53 H Creatinine 1.04 #H Glucose Level 81 Calcium Level 6.7 L Phosphorus Level 4.6 # Magnesium Level 2.6 H Total Bilirubin 0.3 Direct Bilirubin 0.00 Indirect Bilirubin 0.3 Aspartate Amino Transf (AST/SGOT) 67 H Alanine Aminotransferase (ALT/SGPT) 29 Alkaline Phosphatase 76 Total Protein 4.5 L Albumin 2.1 L Globulin 2.40 Albumin/Globulin Ratio 0.87 Blood Gas Specimen Source Blood arterial Blood arterial Arterial Blood Date Drawn 08/07/2017 7:40:18 AM 08/07/2017 11:20:56 AM Arterial Blood pH (Temp corrected) 7.443 7.372 Arterial Blood pCO2 (Temp correct) 26.3 L 35.3 Arterial Blood pO2 (Temp corrected) 108.3 H 82.2 Arterial Blood HCO3 17.6 L 20.0 L Arterial Blood Base Excess -5.9 L -4.7 L Arterial Blood Oxygen Saturation 97.6 94.9 L Brian Test N/A N/A Arterial Blood Gas Puncture Site A-Line A-Line Arterial Blood Carboxyhemoglobin 0.1 0.3 Arterial Blood Methemoglobin 0.6 0.2 Blood Gas A-a O2 Differential 74.7 H 90.2 H Oxyhemoglobin Percent 96.9 94.4 Total Hemoglobin 6.7 L 9.3 L Blood Gas Temperature 37.0 37.0 Blood Gas Respiration Rate 16.0 Blood Gas Actual Respiration Rate 24 27 Blood Gas Modality VENT - AC VENT - CPAP FiO2 30.0 30.0 Blood Gas Tidal Volume 500.0 Blood Gas Low PEEP Setting 5.0 5.0 Blood Gas Notified Whom JUANA ARIAS Blood Gas Notified Time 08/07/2017 7:57:24 AM 08/07/2017 11:34:33 AM Blood Gas Pressure Support 10 Medications Medications Current Medications Acetaminophen 650 mg 650 mg Q4H PRN PO pain/fever; Start 07/24/17 at 07:00; Status Future Hold Acetaminophen 100 ml @ 400 mls/hr Q6H IVPB Last administered on 08/07/17t 11: 19; Admin Dose 400 MLS/HR; Start 07/26/17 at 18:00 Ondansetron HCl/ Sodium Chloride (Zofran Inj/NS) 54 ml @ 216 mls/hr Q6H PRN IV NAUSEA AND/OR VOMITING Last administered on 08/05/17 03:50; Admin Dose 216 MLS/HR; Start 07/27/17 at 13:00 Phenol (Chloraseptic Throat [place]) 2 spray Q2H PRN MT SORE THROAT Last administered on 07/29/17 18:10; Admin Dose 2 SPRAY; Start 07/29/17 at 13:00 Diphenhydramine HCl (Benadryl) 25 mg Q6H PRN IV SLEEP Last administered on 08/01 00:19; Admin Dose 25 MG; Start 07/31/17 at 13:00 Chlorpromazine 10 mg 10 mg Q6 PRN IM HICCUPS Last administered on 08/04/17 21: 21; Admin Dose 10 MG; Start 08/02/17 at 06:00 Sodium Chloride (NS) 1,000 ml @ 100 mls/hr Q10H IV Last administered on 05:02; Admin Dose 120 MLS/HR; Start 08/03/17 at 18:00 Loratadine (Claritin) 10 mg DAILY NGT Last administered on 08/04/17 09:32; Admin Dose 10 MG; Start 08/04/17 at 09:00 Pantoprazole (Protonix Iv) 40 mg DAILY@06 IV Last administered on 08/07/17 05: 35; Admin Dose 40 MG; Start 08/06/17 at 06:00 Hydromorphone HCl 0.5 mg 0.5 mg Q2H PRN IV PAIN Last administered on 08/07/17 10:50; Admin Dose 0.5 MG; Start 08/05/17 at 22:30 Propofol (Diprivan) 100 ml @ 2.79 mls/hr Q12H IV Last administered on 08:32; Admin Dose 16.74 MLS/HR; Start 08/05/17 at 23:45 Morphine Sulfate 2 mg 2 mg Q2H PRN IV PAIN Last administered on 08/07/17 10:48 ; Admin Dose 2 MG; Start 08/05/17 at 23:45 Norepinephrine 16 mg/Dextrose 500 ml @ 1.87 mls/hr TITRATE IV Last administered on 08/06/17 02:05; Admin Dose 5.62 MLS/HR; Start 08/06/17 at 00:30 Vancomycin HCl 1.5 gm/Sodium Chloride 250 ml @ 83.333 mls/ hr Q24H IVPB ; Start 08/07/17 at 12:00 Calcium Gluconate/ Dextrose (Ca Gluc/D5W) 140 ml @ 35 mls/hr ONCE ONCE IVPB Last administered on 08/07/17 10:58; Admin Dose 35 MLS/HR; Start 08/07/17 at 11 :00; Stop 08/07/17 at 14:59 Furosemide 40 mg 40 mg ONCE IV ; Start 08/07/17 at 10:30; Stop 08/07/17 at 23:00 Meropenem/Sodium Chloride (Merrem 1 Gm/50 ml (Pmx)) 50 ml @ 100 mls/hr Q12 IVPB ; Start 08/07/17 at 21:00 Hilario BOTELLO Aug 07, 2017 11:55
[2017-08-07] MEDS ORDERED: VANCOMYCIN 1.5 GM in SOD CHLORIDE 0.9% 250 ML IVPB SCH (12:00)
[2017-08-07] MEDS: FUROSEMIDE 40 MG INJ IV SCH (14:10)
--- NOTE | 2017-08-07 16:22 | CONS ---
Date/Time of Note Date/Time of Note DATE: 08/07/17 TIME: 16:19 Assessment/Plan Assessment/Plan Additional Assessment/Plan 1. Oliguric EJ due to ATN from Shock- Multifactorial septic from peritonitis + Hemorrhagic 2. Acute hyperkalemia due to EJ 3. Metabolic acidosis with lactic acidosis 4. acute resp failure, possible Asp PNA vs HCAP - pt remained on ventilator post operatively 5. Septic shock requiring pressors, now off levophed 6. Status post Left hemicolectomy for sigmoid adenocarcinoma/mass POD#7, s/p total of 4 units pRBC since admission. - again pt underwent Exploratory laparotomy with intra-abdominal abscess drainage, Placement of percutaneous Maurisio drains #19 x2., Partial colectomy.Formation of end colostomy with Corona 's pouch. on 08/05/17 7. Atrial fibrillation 8. Chornic diastolic heart failure with EF 55% 9. Hypocalcemia with hypoalbuminemia - corrected Ca better Plan: pt remains intubated, FiO2 down to 30%, failed weaning trial- back on AC mode BUN/Cr improving, good urine output yesterday after IV albumin + IV lasix no plan for lasix today Renal US negative for acute findings Corrected Ca 7,2, S/p calcium gluconate 4 gram IV x 1 today Continue IVF NS- will decrease rate to 75 cc/hr Pulmonary is planning to try wening in AM will continue to follow up along with other subspecialist Consultation Date/Type/Reason Admit Date/Time Jul 24, 2017 at 06:16 Initial Consult Date 08/05/17 Type of Consultation: NEPHROLOGY Referring Provider: RAE CALVO 24 HR Interval Summary Free Text/Dictation good urine out put, S/p IV abumin + IV lasix , failed weaning trial, semilethargic, Bp went up during weaning Exam/Review of Systems Vital Signs Vitals Vital Signs Date Time Temp Pulse Resp B/P Pulse Ox O2 Delivery O2 Flow Rate FiO2 08/07/17 16:00 78 20 127/59 98 Mechanical Ventilator 08/07/17 14:50 30 08/07/17 12:00 100.3 08/05/17 13:19 5.0 Intake and Output 08/06/17 08/06/17 08/07/17 15:00 23:00 07:00 Intake Total 2207.18 ml 1194.00 ml 1414.06 ml Output Total 1750 ml 1160 ml 935 ml Balance 457.18 ml 34.00 ml 479.06 ml Exam Constitutional: non-verbal, other (Intubaed sedated on ventilator ) Respiratory: crackles/rales, diminished breath sounds, other (Bilateral corase BS+) Cardiovascular: other (Tachycardia ) Gastrointestinal: distended, tender Musculoskeletal: muscle weakness, swelling Extremities: normal pulses, + valladares catheter Neurological: other (sedated on ventilator, uncooperative for exam ) Lymph: nl lymph nodes Results Result Diagram: 08/07/17 0442 08/07/17 0442 Results 24 hrs Laboratory Tests Test 08/07/17 04:42 08/07/17 07:00 08/07/17 11:11 White Blood Count 15.2 #H Red Blood Count 3.02 L Hemoglobin 7.5 L Hematocrit 24.4 L Mean Corpuscular Volume 80.8 L Mean Corpuscular Hemoglobin 24.8 L Mean Corpuscular Hemoglobin Concent 30.7 L Red Cell Distribution Width 22.5 H Platelet Count 339 Mean Platelet Volume 12.4 H Neutrophils % 78.3 H Lymphocytes % 8.9 L Monocytes % 3.4 Eosinophils % 0.0 Basophils % 0.6 Nucleated Red Blood Cells % 0.8 H Neutrophils # 11.9 H Lymphocytes # 1.4 Monocytes # 0.5 Eosinophils # 0.0 Basophils # 0.1 Nucleated Red Blood Cells # 0.1 H Sodium Level 142 Potassium Level 4.8 Chloride Level 110 Carbon Dioxide Level 22 Anion Gap 15 Blood Urea Nitrogen 53 H Creatinine 1.04 #H Glucose Level 81 Calcium Level 6.7 L Phosphorus Level 4.6 # Magnesium Level 2.6 H Total Bilirubin 0.3 Direct Bilirubin 0.00 Indirect Bilirubin 0.3 Aspartate Amino Transf (AST/SGOT) 67 H Alanine Aminotransferase (ALT/SGPT) 29 Alkaline Phosphatase 76 Total Protein 4.5 L Albumin 2.1 L Globulin 2.40 Albumin/Globulin Ratio 0.87 Blood Gas Specimen Source Blood arterial Blood arterial Arterial Blood Date Drawn 08/07/2017 7:40:18 AM 08/07/2017 11:20:56 AM Arterial Blood pH (Temp corrected) 7.443 7.372 Arterial Blood pCO2 (Temp correct) 26.3 L 35.3 Arterial Blood pO2 (Temp corrected) 108.3 H 82.2 Arterial Blood HCO3 17.6 L 20.0 L Arterial Blood Base Excess -5.9 L -4.7 L Arterial Blood Oxygen Saturation 97.6 94.9 L Brian Test N/A N/A Arterial Blood Gas Puncture Site A-Line A-Line Arterial Blood Carboxyhemoglobin 0.1 0.3 Arterial Blood Methemoglobin 0.6 0.2 Blood Gas A-a O2 Differential 74.7 H 90.2 H Oxyhemoglobin Percent 96.9 94.4 Total Hemoglobin 6.7 L 9.3 L Blood Gas Temperature 37.0 37.0 Blood Gas Respiration Rate 16.0 Blood Gas Actual Respiration Rate 24 27 Blood Gas Modality VENT - AC VENT - CPAP FiO2 30.0 30.0 Blood Gas Tidal Volume 500.0 Blood Gas Low PEEP Setting 5.0 5.0 Blood Gas Notified Whom JUANA ARIAS Blood Gas Notified Time 08/07/2017 7:57:24 AM 08/07/2017 11:34:33 AM Blood Gas Pressure Support 10 Medications Medications Current Medications Acetaminophen 650 mg 650 mg Q4H PRN PO pain/fever; Start 07/24/17 at 07:00; Status Future Hold Acetaminophen 100 ml @ 400 mls/hr Q6H IVPB Last administered on 08/07/17 11: 19; Admin Dose 400 MLS/HR; Start 07/26/17 at 18:00 Ondansetron HCl/ Sodium Chloride (Zofran Inj/NS) 54 ml @ 216 mls/hr Q6H PRN IV NAUSEA AND/OR VOMITING Last administered on 08/05/17 03:50; Admin Dose 216 MLS/HR; Start 07/27/17 at 13:00 Phenol (Chloraseptic Throat [place]) 2 spray Q2H PRN MT SORE THROAT Last administered on 07/29/17 18:10; Admin Dose 2 SPRAY; Start 07/29/17 at 13:00 Diphenhydramine HCl (Benadryl) 25 mg Q6H PRN IV SLEEP Last administered on 08/01 00:19; Admin Dose 25 MG; Start 07/31/17 at 13:00 Chlorpromazine 10 mg 10 mg Q6 PRN IM HICCUPS Last administered on 08/04/17 21: 21; Admin Dose 10 MG; Start 08/02/17 at 06:00 Sodium Chloride (NS) 1,000 ml @ 100 mls/hr Q10H IV Last administered on 05:02; Admin Dose 120 MLS/HR; Start 08/03/17 at 18:00 Loratadine (Claritin) 10 mg DAILY NGT Last administered on 08/04/17 09:32; Admin Dose 10 MG; Start 08/04/17 at 09:00 Pantoprazole (Protonix Iv) 40 mg DAILY@06 IV Last administered on 08/07/17 05: 35; Admin Dose 40 MG; Start 08/06/17 at 06:00 Hydromorphone HCl 0.5 mg 0.5 mg Q2H PRN IV PAIN Last administered on 08/07/17 10:50; Admin Dose 0.5 MG; Start 08/05/17 at 22:30 Propofol (Diprivan) 100 ml @ 2.79 mls/hr Q12H IV Last administered on 08:32; Admin Dose 16.74 MLS/HR; Start 08/05/17 at 23:45 Morphine Sulfate 2 mg 2 mg Q2H PRN IV PAIN Last administered on 08/07/17 10:48 ; Admin Dose 2 MG; Start 08/05/17 at 23:45 Norepinephrine 16 mg/Dextrose 500 ml @ 1.87 mls/hr TITRATE IV Last administered on 08/06/17 02:05; Admin Dose 5.62 MLS/HR; Start 08/06/17 at 00:30 Vancomycin HCl/ Sodium Chloride (Vancocin/NS) 250 ml @ 83.333 mls/ hr Q24H IVPB Last administered on 08/07/17 12:09; Admin Dose 83.333 MLS/HR; Start 08/07/17 at 12:00 Furosemide 40 mg 40 mg ONCE IV Last administered on 08/07/17 14:10; Admin Dose 40 MG; Start 08/07/17 at 10:30; Stop 08/07/17 at 23:00 Meropenem/Sodium Chloride (Merrem 1 Gm/50 ml (Pmx)) 50 ml @ 100 mls/hr Q12 IVPB ; Start 08/07/17 at 21:00 MEKA ROBERTSON MD Aug 07, 2017 16:22
--- NOTE | 2017-08-07 17:41 | CONS ---
Date/Time of Note Date/Time of Note DATE: 08/07/17 TIME: 17:40 Assessment/Plan Assessment/Plan Additional Assessment/Plan Paroxysmal atrial fibrillation with rapid ventricular rates, currently sinus Low normal ejection fraction 50% Colon mass status post colon surgery July 26, 2017 and repeat August 05, 2017 Acute kidney injury Sepsis Vent dependent respiratory failure -Patient remains in sinus rhythm. If episodes of recurrent atrial fibrillation , would restart IV amiodarone. As needed antihypertensives. IV fluids and electrolyte management as per our nephrology colleagues. Vent management as per pulmonary. Consultation Date/Type/Reason Admit Date/Time Jul 24, 2017 at 06:16 Initial Consult Date 07/29/17 Type of Consultation: cv Referring Provider: RAE CALVO 24 HR Interval Summary Free Text/Dictation Patient seen and examined, remains intubated and sedated Exam/Review of Systems Vital Signs Vitals Vital Signs Date Time Temp Pulse Resp B/P Pulse Ox O2 Delivery O2 Flow Rate FiO2 08/07/17 17:00 80 20 133/59 99 Mechanical Ventilator 08/07/17 14:50 30 08/07/17 12:00 100.3 08/05/17 13:19 5.0 Intake and Output 08/06/17 08/06/17 08/07/17 15:00 23:00 07:00 Intake Total 2207.18 ml 1194.00 ml 1414.06 ml Output Total 1750 ml 1160 ml 935 ml Balance 457.18 ml 34.00 ml 479.06 ml Exam Intubated and sedated, no apparent distress Head: normocephalic Respiratory: other (Coarse breath sounds bilaterally, no wheezing) Cardiovascular: other (S1-S2 heard), regular rate and rhythm Gastrointestinal: bowel sounds, non-tender, soft Extremities: edema Results Result Diagram: 08/07/17 0442 08/07/17 0442 Results 24 hrs Laboratory Tests Test 08/07/17 04:42 08/07/17 07:00 08/07/17 11:11 White Blood Count 15.2 #H Red Blood Count 3.02 L Hemoglobin 7.5 L Hematocrit 24.4 L Mean Corpuscular Volume 80.8 L Mean Corpuscular Hemoglobin 24.8 L Mean Corpuscular Hemoglobin Concent 30.7 L Red Cell Distribution Width 22.5 H Platelet Count 339 Mean Platelet Volume 12.4 H Neutrophils % 78.3 H Lymphocytes % 8.9 L Monocytes % 3.4 Eosinophils % 0.0 Basophils % 0.6 Nucleated Red Blood Cells % 0.8 H Neutrophils # 11.9 H Lymphocytes # 1.4 Monocytes # 0.5 Eosinophils # 0.0 Basophils # 0.1 Nucleated Red Blood Cells # 0.1 H Sodium Level 142 Potassium Level 4.8 Chloride Level 110 Carbon Dioxide Level 22 Anion Gap 15 Blood Urea Nitrogen 53 H Creatinine 1.04 #H Glucose Level 81 Calcium Level 6.7 L Phosphorus Level 4.6 # Magnesium Level 2.6 H Total Bilirubin 0.3 Direct Bilirubin 0.00 Indirect Bilirubin 0.3 Aspartate Amino Transf (AST/SGOT) 67 H Alanine Aminotransferase (ALT/SGPT) 29 Alkaline Phosphatase 76 Total Protein 4.5 L Albumin 2.1 L Globulin 2.40 Albumin/Globulin Ratio 0.87 Blood Gas Specimen Source Blood arterial Blood arterial Arterial Blood Date Drawn 08/07/2017 7:40:18 AM 08/07/2017 11:20:56 AM Arterial Blood pH (Temp corrected) 7.443 7.372 Arterial Blood pCO2 (Temp correct) 26.3 L 35.3 Arterial Blood pO2 (Temp corrected) 108.3 H 82.2 Arterial Blood HCO3 17.6 L 20.0 L Arterial Blood Base Excess -5.9 L -4.7 L Arterial Blood Oxygen Saturation 97.6 94.9 L Brian Test N/A N/A Arterial Blood Gas Puncture Site A-Line A-Line Arterial Blood Carboxyhemoglobin 0.1 0.3 Arterial Blood Methemoglobin 0.6 0.2 Blood Gas A-a O2 Differential 74.7 H 90.2 H Oxyhemoglobin Percent 96.9 94.4 Total Hemoglobin 6.7 L 9.3 L Blood Gas Temperature 37.0 37.0 Blood Gas Respiration Rate 16.0 Blood Gas Actual Respiration Rate 24 27 Blood Gas Modality VENT - AC VENT - CPAP FiO2 30.0 30.0 Blood Gas Tidal Volume 500.0 Blood Gas Low PEEP Setting 5.0 5.0 Blood Gas Notified Whom JUANA ARIAS Blood Gas Notified Time 08/07/2017 7:57:24 AM 08/07/2017 11:34:33 AM Blood Gas Pressure Support 10 Medications Medications Current Medications Acetaminophen 650 mg 650 mg Q4H PRN PO pain/fever; Start 07/24/17 at 07:00; Status Future Hold Acetaminophen 100 ml @ 400 mls/hr Q6H IVPB Last administered on 08/07/17 17: 07; Admin Dose 400 MLS/HR; Start 07/26/17 at 18:00 Ondansetron HCl/ Sodium Chloride (Zofran Inj/NS) 54 ml @ 216 mls/hr Q6H PRN IV NAUSEA AND/OR VOMITING Last administered on 08/05/17 03:50; Admin Dose 216 MLS/HR; Start 07/27/17 at 13:00 Phenol (Chloraseptic Throat [place]) 2 spray Q2H PRN MT SORE THROAT Last administered on 07/29/17 18:10; Admin Dose 2 SPRAY; Start 07/29/17 at 13:00 Diphenhydramine HCl (Benadryl) 25 mg Q6H PRN IV SLEEP Last administered on 08/01 00:19; Admin Dose 25 MG; Start 07/31/17 at 13:00 Chlorpromazine 10 mg 10 mg Q6 PRN IM HICCUPS Last administered on 08/04/17 21: 21; Admin Dose 10 MG; Start 08/02/17 at 06:00 Sodium Chloride (NS) 1,000 ml @ 75 mls/hr [id number] IV Last administered on 08/07 05:02; Admin Dose 120 MLS/HR; Start 08/03/17 at 18:00 Loratadine (Claritin) 10 mg DAILY NGT Last administered on 08/04/17 09:32; Admin Dose 10 MG; Start 08/04/17 at 09:00 Pantoprazole (Protonix Iv) 40 mg DAILY@06 IV Last administered on 08/07/17 05: 35; Admin Dose 40 MG; Start 08/06/17 at 06:00 Hydromorphone HCl 0.5 mg 0.5 mg Q2H PRN IV PAIN Last administered on 08/07/17 10:50; Admin Dose 0.5 MG; Start 08/05/17 at 22:30 Propofol (Diprivan) 100 ml @ 2.79 mls/hr Q12H IV Last administered on 16:30; Admin Dose 16.74 MLS/HR; Start 08/05/17 at 23:45 Morphine Sulfate 2 mg 2 mg Q2H PRN IV PAIN Last administered on 08/07/17 10:48 ; Admin Dose 2 MG; Start 08/05/17 at 23:45 Norepinephrine 16 mg/Dextrose 500 ml @ 1.87 mls/hr TITRATE IV Last administered on 08/06/17 02:05; Admin Dose 5.62 MLS/HR; Start 08/06/17 at 00:30 Vancomycin HCl/ Sodium Chloride (Vancocin/NS) 250 ml @ 83.333 mls/ hr Q24H IVPB Last administered on 08/07/17 12:09; Admin Dose 83.333 MLS/HR; Start 08/07/17 at 12:00 Furosemide 40 mg 40 mg ONCE IV Last administered on 08/07/17 14:10; Admin Dose 40 MG; Start 08/07/17 at 10:30; Stop 08/07/17 at 23:00 Meropenem/Sodium Chloride (Merrem 1 Gm/50 ml (Pmx)) 50 ml @ 100 mls/hr Q12 IVPB ; Start 08/07/17 at 21:00 Fercho Mojica DO Aug 07, 2017 17:41
[2017-08-07] MEDS ORDERED: hydrALAzine 20 MG INJ IV PRN (18:00)
[2017-08-07] MEDS: MEROPENEM 1 GM/50ML(PMX) 50 ML IVPB SCH (20:33)
[2017-08-08] VITALS (47 sets, daily range): BP systolic 117–170; BP diastolic 49–88; PULSE 71–87; RESP 17–29
[2017-08-08] MEDS: HYDROmorphONE 0.5 MG/0.5 ML SYG IV PRN ×4 (00:13→19:55)
[2017-08-08] MEDS: ACETAMINOPHEN 1000MG/100ML IV 100 ML IVPB SCH ×5 (00:16→23:43)
[2017-08-08] MEDS: PROPOFOL 100 ML IV SCH ×4 (03:09→18:23)
[2017-08-08] MEDS: PANTOPRAZOLE 40 MG INJ IV SCH (05:22)
[2017-08-08 05:23] LABS: ABNORMAL IP MESSAGE 1; HEMATOCRIT 31.1 % (37.0-47.0); HEMOGLOBIN 9.6 g/dl (12.0-16.0); MEAN CORPUSCULAR HEMOGLOBIN 25.9 pg (29.0-33.0); MEAN CORPUSCULAR HGB CONC 30.9 g/dl (32.0-37.0); MEAN CORPUSCULAR VOLUME 83.8 fl (82.0-101.0); MEAN PLATELET VOLUME 11.8 fl (7.4-10.4); NUCLEATED RED BLOOD CELLS% 0.5 /100WBC (0.0-0.0); PLATELET COUNT 417 10^3/UL (140-415); RED BLOOD COUNT 3.71 10^6/ul (4.20-5.40); RED CELL DISTRIBUTION WIDTH 21.2 % (11.5-14.5); WHITE BLOOD COUNT 14.8 10^3/ul (4.8-10.8)
[2017-08-08 05:35] LABS: POSITIVE DIFF @See below
[2017-08-08 05:42] LABS: CALCIUM 7.5 mg/dl (8.4-10.2); CREATININE 0.86 mg/dl (0.44-1.00); MAGNESIUM 2.6 mg/dl (1.7-2.5); PHOSPHORUS 3.8 mg/dl (2.5-4.9); POTASSIUM 4.2 mmol/L (3.5-5.1)
--- NOTE | 2017-08-08 07:15 | PN ---
DATE: 08/07/2017 INFECTIOUS DISEASE PROGRESS NOTE SUBJECTIVE: No acute events overnight. The patient is awake, comfortable on vent, complaining of p ain. She is in no distress, follows commands. VITAL SIGNS: Temperature 98.8, pulse 82, respirations 25, blood pressure 128/57, saturation 99% on CPAP. LABORATORY DATA: WBC 15.2, H and H 7.5 and 24.4, platelets 339, neutrophils 78.3, BUN 53, creatinin e 1.04. MICROBIOLOGY: Abdominal wound culture growing gram-negative rods. ANTIMICROBIALS: The patient is on Vancomycin, Merrem. INDWELLINGS: Endotracheal tube, NG tube, Bilateral JPs, and colostomy, right IJ triple lumen cathet er, peripheral IVs. DIAGNOSTICS: Chest x-ray this morning revealed interval dense left retrocardiac opacification, ques tionable pleural effusion with atelectasis and/or consolidation. Left perihilar and lower lobe pare nchymal opacity possibly representing pneumonia. A renal ultrasound from yesterday revealed normal kidneys with no hydronephrosis. PHYSICAL EXAMINATION: GENERAL: This is a well-developed, obese, middle-aged white woman who is alert, in no distress. HEENT: Head atraumatic, normocephalic. Sclerae anicteric. Buccal mucosa dry. NECK: Supple, trachea midline. CHEST: Rise symmetrical. Breath sounds clear, diminished to bases. HEART: S1, S2. ABDOMEN: Distended, soft. Mid abdominal dressing intact. The patient has bilateral abdominal sit es JPs and a right-sided colostomy. EXTREMITIES: Without cyanosis. Bilateral trace edema. ASSESSMENT: 1. Sepsis, likely secondary to postoperative anastomotic leak. 2. Status post exploratory laparotomy with drainage of abscesses and drain placement, partial colec stacy, and colostomy on 08/05/2017. 3. History of colon cancer. 4. Paroxysmal atrial fibrillation. 5. Postoperative respiratory failure, possible pneumonia. 6. Acute kidney injury with renal function improving. 7. Anemia. PLAN: The patient remains stable, tolerates CPAP. She is on appropriate antimicrobials pending fin al cultures. White blood cell count tracing down. Dictated By: YG TARANGO ENVIRONMENTAL DIRECTOR for LUIS FERNANDO SURESH MD NI/NTS Conf#: [id number] DID#: [id number]
--- NOTE | 2017-08-08 07:36 | RADRPT ---
PROCEDURE: XR Chest. CLINICAL INDICATION: pna chf TECHNIQUE: Single portable view of the chest was obtained. COMPARISON: CR CHEST 03/10/2014; CR CHEST 06/17/2013 FINDINGS: Endotracheal tube terminates 3 cm above the tessie. Right internal jugular central venous catheter t erminates near the atriocaval caval junction. A nasogastric tube extends below the left hemidiaphrag m. The cardiomediastinal silhouette is stable in size and configuration. Interval dense left base opaci fication secondary to the combination of infiltrates or atelectasis with pleural effusion. Ill-defin ed left perihilar parenchymal opacities are noted. The right lung is grossly clear. No evidence of a pneumothorax. IMPRESSION: 1. Dense opacification of the left lower lobe by atelectasis or infiltrates with pleural effusion. 2. Left perihilar parenchymal opacities. 3. Satisfactory position of support lines and tubes. RPTAT: HRSR Physician Carol Date Time Electronically viewed and signed by Physician Carol on 08/08/2017 07:36 RR/
[2017-08-08 07:58] LABS: AADO2 Arterial 80.4 mmHg (7.0-24.0); Arterial Base Excess -3.9 mmol/L (-3.0-3); Arterial COHb 0.3 % (0.0-3.0); Arterial Fraction of Oxyhgb 96.7 % (93.0-99.0); Arterial HCO3 19.5 mmol/L (22.0-26.0); Arterial MetHb 0.2 % (0.0-1.5); Arterial Total Hemglobin 10.7 g/dl (12.0-18.0); MODE VENT - AC
[2017-08-08] MEDS: MEROPENEM 1 GM/50ML(PMX) 50 ML IVPB SCH ×2 (08:13→20:36)
[2017-08-08] MEDS: LORATADINE 10 MG TAB NGT SCH (08:14)
[2017-08-08 08:25] LABS: ANISOCYTOSIS 1+ (0-0); GIANT THROMBO% (M) 1 % (0-0); MICROCYTOSIS 1+ (0-0); MONOCYTES % (M) 6 % (0-11); MYELOCYTES % (M) 1 % (0-0); PLATELET ESTIMATE NORMAL; POIKILOCYTOSIS 1+ (0-0); POLYCHROMASIA 3+ (0-0); REACTIVE LYMPHOCYTES% (M) 2 % (0-0)
--- NOTE | 2017-08-08 08:31 | CONS ---
Date/Time of Note Date/Time of Note DATE: 08/08/17 TIME: 08:27 Assessment/Plan Assessment/Plan Additional Assessment/Plan 1. Oliguric EJ due to ATN from Shock- Multifactorial septic from peritonitis + Hemorrhagic- Improving, making good urine 2. Acute hyperkalemia due to EJ 3. Metabolic acidosis with lactic acidosis- Improved much better, 4. acute resp failure, possible Asp PNA vs HCAP - pt remained on ventilator post operatively , CXR showed left pleural effusion. 5. Septic shock requiring pressors, now off levophed 6. Status post Left hemicolectomy for sigmoid adenocarcinoma/mass POD#7, s/p total of 4 units pRBC since admission. - again pt underwent Exploratory laparotomy with intra-abdominal abscess drainage, Placement of percutaneous Maurisio drains #19 x2., Partial colectomy.Formation of end colostomy with Corona 's pouch. on 08/05/17 7. Atrial fibrillation 8. Chronic diastolic heart failure with EF 55% 9. Hypocalcemia with hypoalbuminemia - corrected Ca better Plan: pt remains intubated, FiO2 down to 30%, failed weaning trial yesterday- back on AC mode- today her CXR showed left pleural effusion, need thoracentesis-d /w Pulmonary in ICU made 2.7 L Urine output without Lasix - no plan for Lasix today Renal US negative for acute findings decrease IVF to 50cc/hr and plan is to d/c IVF tomrrow, can consider tube feeding for nutrition purposes. will continue to follow up along with other subspecialist Consultation Date/Type/Reason Admit Date/Time Jul 24, 2017 at 06:16 Initial Consult Date 08/05/17 Type of Consultation: NEPHROLOGY Referring Provider: RAE CALVO 24 HR Interval Summary Free Text/Dictation pt remains intubated on ventilator, made good urine output 2.7 liter Exam/Review of Systems Vital Signs Vitals Vital Signs Date Time Temp Pulse Resp B/P Pulse Ox O2 Delivery O2 Flow Rate FiO2 08/08/17 08:00 98.7 73 25 134/61 98 Mechanical Ventilator 08/08/17 07:19 30 08/05/17 13:19 5.0 Intake and Output 08/07/17 08/07/17 08/08/17 14:59 22:59 06:59 Intake Total 1017.106 ml 1250.586 ml 842.18 ml Output Total 843 ml 1310 ml 998 ml Balance 174.106 ml -59.414 ml -155.82 ml Exam Constitutional: non-verbal, other (Intubaed sedated on ventilator ) Respiratory: crackles/rales, diminished breath sounds, other (Bilateral corase BS+) Cardiovascular: other (Tachycardia ) Gastrointestinal: distended, tender Musculoskeletal: muscle weakness, swelling Extremities: normal pulses, + valladares catheter Neurological: other (sedated on ventilator, uncooperative for exam ) Lymph: nl lymph nodes Results Result Diagram: 08/08/17 0500 08/08/17 0500 Results 24 hrs Laboratory Tests Test 08/07/17 11:11 08/08/17 04:58 08/08/17 05:00 08/08/17 07:00 Blood Gas Specimen Source Blood arterial Blood arterial Arterial Blood Date Drawn 08/07/2017 11:20:56 AM 08/08/2017 7:20:53 AM Arterial Blood pH (Temp corrected) 7.372 7.430 Arterial Blood pCO2 (Temp correct) 35.3 30.1 L Arterial Blood pO2 (Temp corrected) 82.2 98.1 Arterial Blood HCO3 20.0 L 19.5 L Arterial Blood Base Excess -4.7 L -3.9 L Arterial Blood Oxygen Saturation 94.9 L 97.2 Brian Test N/A N/A Arterial Blood Gas Puncture Site A-Line A-Line Arterial Blood Carboxyhemoglobin 0.3 0.3 Arterial Blood Methemoglobin 0.2 0.2 Blood Gas A-a O2 Differential 90.2 H 80.4 H Oxyhemoglobin Percent 94.4 96.7 Total Hemoglobin 9.3 L 10.7 L Blood Gas Temperature 37.0 37.0 Blood Gas Actual Respiration Rate 27 20 Blood Gas Modality VENT - CPAP VENT - AC FiO2 30.0 30.0 Blood Gas Low PEEP Setting 5.0 5.0 Blood Gas Pressure Support 10 Blood Gas Notified Whom JUANA ARIAS Blood Gas Notified Time 08/07/2017 11:34:33 AM 08/08/2017 7:58:35 AM Lab Scanned Report BLOOD TRANSFUSION White Blood Count 14.8 H Red Blood Count 3.71 #L Hemoglobin 9.6 #L Hematocrit 31.1 #L Mean Corpuscular Volume 83.8 Mean Corpuscular Hemoglobin 25.9 L Mean Corpuscular Hemoglobin Concent 30.9 L Red Cell Distribution Width 21.2 H Platelet Count 417 #H Mean Platelet Volume 11.8 H Neutrophils % Segmented Neutrophils % (Manual) 61 Band Neutrophils % (Manual) 22 H Lymphocytes % Lymphocytes % (Manual) 8 L Reactive Lymphocytes % (Manual) 2 H Monocytes % Monocytes % (Manual) 6 Eosinophils % Basophils % Myelocytes % (Manual) 1 H Nucleated Red Blood Cells % 0.5 H Neutrophils # Neutrophils # (Manual) 9.5 H Band Neutrophils # 3.2 H Absolute Lymphocytes (Manual) 1.1 Lymphocytes # Reactive Lymphocytes # 0.2 H Monocytes # Absolute Monocytes (Manual) 0.8 Eosinophils # Basophils # Myelocytes # 0.1 H Nucleated Red Blood Cells # Platelet Estimate NORMAL Giant Platelets 1 H Polychromasia 3+ Poikilocytosis 1+ Anisocytosis 1+ Microcytosis 1+ Sodium Level 146 H Potassium Level 4.2 Chloride Level 112 H Carbon Dioxide Level 23 Anion Gap 15 Blood Urea Nitrogen 39 #H Creatinine 0.86 Glucose Level 80 Calcium Level 7.5 L Phosphorus Level 3.8 Magnesium Level 2.6 H Blood Gas Respiration Rate 16.0 Blood Gas Tidal Volume 500.0 Medications Medications Current Medications Acetaminophen 650 mg 650 mg Q4H PRN PO pain/fever; Start 07/24/17 at 07:00; Status Future Hold Acetaminophen 100 ml @ 400 mls/hr Q6H IVPB Last administered on 08/08/17 05: 22; Admin Dose 400 MLS/HR; Start 07/26/17 at 18:00 Ondansetron HCl/ Sodium Chloride (Zofran Inj/NS) 54 ml @ 216 mls/hr Q6H PRN IV NAUSEA AND/OR VOMITING Last administered on 08/05/17 03:50; Admin Dose 216 MLS/HR; Start 07/27/17 at 13:00 Phenol (Chloraseptic Throat [place]) 2 spray Q2H PRN MT SORE THROAT Last administered on 07/29/17 18:10; Admin Dose 2 SPRAY; Start 07/29/17 at 13:00 Diphenhydramine HCl (Benadryl) 25 mg Q6H PRN IV SLEEP Last administered on 08/01 00:19; Admin Dose 25 MG; Start 07/31/17 at 13:00 Chlorpromazine 10 mg 10 mg Q6 PRN IM HICCUPS Last administered on 08/04/17 21: 21; Admin Dose 10 MG; Start 08/02/17 at 06:00 Sodium Chloride (NS) 1,000 ml @ 75 mls/hr [id number] IV Last administered on 08/07 22:34; Admin Dose 75 MLS/HR; Start 08/03/17 at 18:00 Loratadine (Claritin) 10 mg DAILY NGT Last administered on 08/04/17 09:32; Admin Dose 10 MG; Start 08/04/17 at 09:00 Pantoprazole (Protonix Iv) 40 mg DAILY@06 IV Last administered on 08/08/17 05: 22; Admin Dose 40 MG; Start 08/06/17 at 06:00 Hydromorphone HCl 0.5 mg 0.5 mg Q2H PRN IV PAIN Last administered on 08/08/17 08:13; Admin Dose 0.5 MG; Start 08/05/17 at 22:30 Propofol (Diprivan) 100 ml @ 2.79 mls/hr Q12H IV Last administered on 03:09; Admin Dose 16.74 MLS/HR; Start 08/05/17 at 23:45 Morphine Sulfate 2 mg 2 mg Q2H PRN IV PAIN Last administered on 08/07/17 10:48 ; Admin Dose 2 MG; Start 08/05/17 at 23:45 Norepinephrine 16 mg/Dextrose 500 ml @ 1.87 mls/hr TITRATE IV Last administered on 08/06/17 02:05; Admin Dose 5.62 MLS/HR; Start 08/06/17 at 00:30 Vancomycin HCl 1.5 gm/Sodium Chloride 250 ml @ 83.333 mls/ hr Q24H IVPB Last administered on 08/07/17 12:09; Admin Dose 83.333 MLS/HR; Start 08/07/17 at 12: 00 Meropenem/Sodium Chloride (Merrem 1 Gm/50 ml (Pmx)) 50 ml @ 100 mls/hr Q12 IVPB Last administered on 08/08/17 08:13; Admin Dose 100 MLS/HR; Start at 21:00 Hydralazine HCl (Apresoline) 10 mg Q6H PRN IV sbp>170; Start 08/07/17 at 18:00 MEKA ROBERTSON MD Aug 08, 2017 08:31
[2017-08-08] MEDS: SOD CHLORIDE 0.9% 1,000 ML IV SCH ×3 (09:05→20:18)
[2017-08-08] MEDS ORDERED: HYDROmorphONE 0.5 MG/0.5 ML SYG IV STA (09:35)
--- NOTE | 2017-08-08 09:49 | PN ---
Date/Time of Note Date/Time of Note DATE: 08/08/17 TIME: 09:46 Assessment/Plan VTE Prophylaxis VTE Prophylaxis Intervention: SCD's Lines/Catheters IV Catheter Type (from Nrs): A Line Urinary Cath still in place: Yes Reason Cath still needed: urinary retention Assessment/Plan Chief Complaint/Hosp Course 51 yo F with bleeding colon cancer taken to the OR for urgent resection with primary anastomosis postop course was ok and was tolerating clears until she develop afib with RVR and diaphoresis was transferred to the ICU, she developed ileus and emesis, CT scan showed anastomotic leak patient taken to the OR for washout and colostomy placement. was on pressors for one night now off. Problems: Assessment/Plan sepsis resolving slowly EJ resolving slowly continued UOP Pulm vent on AC FIO2 30 percent will need pleurocentesis prior to extubation continue critical care Subjective 24 Hr Interval Summary Free Text/Dictation weaning trials unsuccessful, left pleural effusion may be the issue and discussion regarding left pleurocentesis nutritionally unable to take enteric feedings due to NGT output may need to start TPN Exam/Review of Systems Vital Signs Vitals Vital Signs Date Time Temp Pulse Resp B/P Pulse Ox O2 Delivery O2 Flow Rate FiO2 08/08/17 08:00 98.7 73 25 134/61 98 Mechanical Ventilator 08/08/17 08:00 30 08/05/17 13:19 5.0 Intake and Output 08/07/17 08/07/17 08/08/17 15:00 23:00 07:00 Intake Total 1347.179 ml 892.253 ml 750.44 ml Output Total 1143 ml 1010 ml 898 ml Balance 204.179 ml -117.747 ml -147.56 ml Exam colostomy with output Results Result Diagram: 08/08/17 0500 08/08/17 0500 Results 24 hrs Laboratory Tests Test 08/07/17 11:11 08/08/17 04:58 08/08/17 05:00 08/08/17 07:00 Blood Gas Specimen Source Blood arterial Blood arterial Arterial Blood Date Drawn 08/07/2017 11:20:56 AM 08/08/2017 7:20:53 AM Arterial Blood pH (Temp corrected) 7.372 7.430 Arterial Blood pCO2 (Temp correct) 35.3 30.1 L Arterial Blood pO2 (Temp corrected) 82.2 98.1 Arterial Blood HCO3 20.0 L 19.5 L Arterial Blood Base Excess -4.7 L -3.9 L Arterial Blood Oxygen Saturation 94.9 L 97.2 Brian Test N/A N/A Arterial Blood Gas Puncture Site A-Line A-Line Arterial Blood Carboxyhemoglobin 0.3 0.3 Arterial Blood Methemoglobin 0.2 0.2 Blood Gas A-a O2 Differential 90.2 H 80.4 H Oxyhemoglobin Percent 94.4 96.7 Total Hemoglobin 9.3 L 10.7 L Blood Gas Temperature 37.0 37.0 Blood Gas Actual Respiration Rate 27 20 Blood Gas Modality VENT - CPAP VENT - AC FiO2 30.0 30.0 Blood Gas Low PEEP Setting 5.0 5.0 Blood Gas Pressure Support 10 Blood Gas Notified Whom JUANA ARIAS Blood Gas Notified Time 08/07/2017 11:34:33 AM 08/08/2017 7:58:35 AM Lab Scanned Report BLOOD TRANSFUSION White Blood Count 14.8 H Red Blood Count 3.71 #L Hemoglobin 9.6 #L Hematocrit 31.1 #L Mean Corpuscular Volume 83.8 Mean Corpuscular Hemoglobin 25.9 L Mean Corpuscular Hemoglobin Concent 30.9 L Red Cell Distribution Width 21.2 H Platelet Count 417 #H Mean Platelet Volume 11.8 H Neutrophils % Segmented Neutrophils % (Manual) 61 Band Neutrophils % (Manual) 22 H Lymphocytes % Lymphocytes % (Manual) 8 L Reactive Lymphocytes % (Manual) 2 H Monocytes % Monocytes % (Manual) 6 Eosinophils % Basophils % Myelocytes % (Manual) 1 H Nucleated Red Blood Cells % 0.5 H Neutrophils # Neutrophils # (Manual) 9.5 H Band Neutrophils # 3.2 H Absolute Lymphocytes (Manual) 1.1 Lymphocytes # Reactive Lymphocytes # 0.2 H Monocytes # Absolute Monocytes (Manual) 0.8 Eosinophils # Basophils # Myelocytes # 0.1 H Nucleated Red Blood Cells # Platelet Estimate NORMAL Giant Platelets 1 H Polychromasia 3+ Poikilocytosis 1+ Anisocytosis 1+ Microcytosis 1+ Sodium Level 146 H Potassium Level 4.2 Chloride Level 112 H Carbon Dioxide Level 23 Anion Gap 15 Blood Urea Nitrogen 39 #H Creatinine 0.86 Glucose Level 80 Calcium Level 7.5 L Phosphorus Level 3.8 Magnesium Level 2.6 H Blood Gas Respiration Rate 16.0 Blood Gas Tidal Volume 500.0 Medications Medications Current Medications Acetaminophen 650 mg 650 mg Q4H PRN PO pain/fever; Start 07/24/17 at 07:00; Status Future Hold Acetaminophen 100 ml @ 400 mls/hr Q6H IVPB Last administered on 08/08/17 05: 22; Admin Dose 400 MLS/HR; Start 07/26/17 at 18:00 Ondansetron HCl/ Sodium Chloride (Zofran Inj/NS) 54 ml @ 216 mls/hr Q6H PRN IV NAUSEA AND/OR VOMITING Last administered on 08/05/17 03:50; Admin Dose 216 MLS/HR; Start 07/27/17 at 13:00 Phenol (Chloraseptic Throat [place]) 2 spray Q2H PRN MT SORE THROAT Last administered on 07/29/17 18:10; Admin Dose 2 SPRAY; Start 07/29/17 at 13:00 Diphenhydramine HCl (Benadryl) 25 mg Q6H PRN IV SLEEP Last administered on 08/01 00:19; Admin Dose 25 MG; Start 07/31/17 at 13:00 Chlorpromazine 10 mg 10 mg Q6 PRN IM HICCUPS Last administered on 08/04/17 21: 21; Admin Dose 10 MG; Start 08/02/17 at 06:00 Sodium Chloride (NS) 1,000 ml @ 50 mls/hr Q20H IV Last administered on 09:05; Admin Dose 50 MLS/HR; Start 08/03/17 at 18:00 Loratadine (Claritin) 10 mg DAILY NGT Last administered on 08/04/17 09:32; Admin Dose 10 MG; Start 08/04/17 at 09:00 Pantoprazole (Protonix Iv) 40 mg DAILY@06 IV Last administered on 08/08/17 05: 22; Admin Dose 40 MG; Start 08/06/17 at 06:00 Hydromorphone HCl 0.5 mg 0.5 mg Q2H PRN IV PAIN Last administered on 08/08/17 08:13; Admin Dose 0.5 MG; Start 08/05/17 at 22:30 Propofol (Diprivan) 100 ml @ 2.79 mls/hr Q12H IV Last administered on 09:03; Admin Dose 16.74 MLS/HR; Start 08/05/17 at 23:45 Morphine Sulfate 2 mg 2 mg Q2H PRN IV PAIN Last administered on 08/07/17 10:48 ; Admin Dose 2 MG; Start 08/05/17 at 23:45 Norepinephrine 16 mg/Dextrose 500 ml @ 1.87 mls/hr TITRATE IV Last administered on 08/06/17 02:05; Admin Dose 5.62 MLS/HR; Start 08/06/17 at 00:30 Vancomycin HCl 1.5 gm/Sodium Chloride 250 ml @ 83.333 mls/ hr Q24H IVPB Last administered on 08/07/17 12:09; Admin Dose 83.333 MLS/HR; Start 08/07/17 at 12: 00 Meropenem/Sodium Chloride (Merrem 1 Gm/50 ml (Pmx)) 50 ml @ 100 mls/hr Q12 IVPB Last administered on 08/08/17 08:13; Admin Dose 100 MLS/HR; Start at 21:00 Hydralazine HCl (Apresoline) 10 mg Q6H PRN IV sbp>170; Start 08/07/17 at 18:00 Hilario BOTELLO Aug 08, 2017 09:49
--- NOTE | 2017-08-08 09:49 | PN ---
Date/Time of Note Date/Time of Note DATE: 08/08/17 TIME: 09:31 Assessment/Plan VTE Prophylaxis VTE Prophylaxis Intervention: SCD's Lines/Catheters IV C[facility]ter Type (from [facility]): A Line Urinary Cath still in place: Yes Reason Cath still needed: other (indicate) (Acute kidney injury, intubated, strict I's and O's) Assessment/Plan Assessment/Plan 51 year old female with: 1. Postop anastomotic leak with sepsis, status post ex lap with drainage of abscesses, drain placement, partial colectomy and colostomy POD#3 Status post Left hemicolectomy for sigmoid adenocarcinoma/mass POD#11 Patient on broad-spectrum antibiotics currently, appreciate infectious disease recommendation, agree with meropenem and vancomycin currently. WBC trending down back to 20% bandemia noted today. Still volume overloaded with a left pleural effusion that will require thoracentesis today Follow-up further recommendations from Dr. Aldana Patient otherwise fairly stable postoperatively. No pressors. 2. Acute respiratory failure currently remaining intubated postoperatively, volume overload, pulmonary edema and also possible aspiration pneumonia versus healthcare associated pneumonia, no pulmonary embolus. Still with left lower lobe questionable infiltrate versus just pleural effusion. Left thoracentesis today based on chest x-ray showing possibly large left pleural effusion and patient failed CPAP trial yesterday. Appreciate recommendations from nephrology and pulmonary. On IV antibiotics. 3. Atrial fibrillation, chronic, currently in sinus rhythm in the 80s. Off amiodarone drip and digoxin. Appreciate cardiology recommendations. Anticoagulation discontinued, discussed with cardiology for now will just leave her off anticoagulation for the remainder of her postoperative course. Electrolyte repletion as needed. 4. Chronic congestive heart failure, chronic diastolic dysfunction and ejection fraction of 55% on latest outpatient echocardiogram in January 2017 and confirmed to be 50% on this admission. Currently in volume overload, left thoracentesis today further diuretics as needed. Monitor volume status. 5. Acute kidney injury, in setting of sepsis, also had the contrast studies 2. Resolved, renal function back to normal. Leal catheter in place. Monitor urine output, decrease IV fluids further today per nephrology, plan to discontinue IV fluids tomorrow. 6. Anemia, acute on chronic, postop: s/p 2 units of packed red blood cells, Hb up to 9.5 7. Hypertension, all antihypertensive on hold in setting of sepsis Prophylaxis: Off anticoagulation, SCDs, Pepcid for GI prophylaxis. Disposition: Patient currently on the vent, continue volume management, renal function back to normal, left thoracentesis today. Continue antibiotics, CPAP trial today after thoracentesis. Follow up further recommendation from infectious disease, general surgery. Patient requires medically left thoracentesis today to be able to extubate her, her pleural effusion will not resolve with diuretics only. It is a medical necessity for her to have the left thoracentesis Subjective 24 Hr Interval Summary Free Text/Dictation Patient remained stable, she is however still intubated, she failed CPAP trial yesterday, she is volume overloaded, left pleural effusion will be tapped today , fluids have been decreased appropriately, appreciate recommendations from nephrology, no need for diuretics. Still with leukocytosis and bandemia, low-grade temperature yesterday. So far afebrile Patient requires a left thoracentesis today to be able to extubate her, her pleural effusion will not resolve with diuretics only. It is a medical necessity for her to have the left thoracentesis done. Exam/Review of Systems Vital Signs Vitals Vital Signs Date Time Temp Pulse Resp B/P Pulse Ox O2 Delivery O2 Flow Rate FiO2 08/08/17 08:00 98.7 73 25 134/61 98 Mechanical Ventilator 08/08/17 08:00 30 08/05/17 13:19 5.0 Intake and Output 08/07/17 08/07/17 08/08/17 15:00 23:00 07:00 Intake Total 1347.179 ml 892.253 ml 750.44 ml Output Total 1143 ml 1010 ml 898 ml Balance 204.179 ml -117.747 ml -147.56 ml Exam Constitutional: other (Sedated and intubated) Respiratory: diminished breath sounds (Bases bilaterally much more pronounced left lower lobe) Cardiovascular: nl pulses, regular rate and rhythm Gastrointestinal: non-tender, soft Musculoskeletal: nl extremities to inspection Extremities: normal pulses, other (Mild anasarca, no clubbing or cyanosis) Neurological: other (Sedated and intubated) Results Result Diagram: 08/08/17 0500 08/08/17 0500 Results 24 hrs Laboratory Tests Test 08/07/17 11:11 08/08/17 04:58 08/08/17 05:00 08/08/17 07:00 Blood Gas Specimen Source Blood arterial Blood arterial Arterial Blood Date Drawn 08/07/2017 11:20:56 AM 08/08/2017 7:20:53 AM Arterial Blood pH (Temp corrected) 7.372 7.430 Arterial Blood pCO2 (Temp correct) 35.3 30.1 L Arterial Blood pO2 (Temp corrected) 82.2 98.1 Arterial Blood HCO3 20.0 L 19.5 L Arterial Blood Base Excess -4.7 L -3.9 L Arterial Blood Oxygen Saturation 94.9 L 97.2 Brian Test N/A N/A Arterial Blood Gas Puncture Site A-Line A-Line Arterial Blood Carboxyhemoglobin 0.3 0.3 Arterial Blood Methemoglobin 0.2 0.2 Blood Gas A-a O2 Differential 90.2 H 80.4 H Oxyhemoglobin Percent 94.4 96.7 Total Hemoglobin 9.3 L 10.7 L Blood Gas Temperature 37.0 37.0 Blood Gas Actual Respiration Rate 27 20 Blood Gas Modality VENT - CPAP VENT - AC FiO2 30.0 30.0 Blood Gas Low PEEP Setting 5.0 5.0 Blood Gas Pressure Support 10 Blood Gas Notified Whom JLD JLD Blood Gas Notified Time 08/07/2017 11:34:33 AM 08/08/2017 7:58:35 AM Lab Scanned Report BLOOD TRANSFUSION White Blood Count 14.8 H Red Blood Count 3.71 #L Hemoglobin 9.6 #L Hematocrit 31.1 #L Mean Corpuscular Volume 83.8 Mean Corpuscular Hemoglobin 25.9 L Mean Corpuscular Hemoglobin Concent 30.9 L Red Cell Distribution Width 21.2 H Platelet Count 417 #H Mean Platelet Volume 11.8 H Neutrophils % Segmented Neutrophils % (Manual) 61 Band Neutrophils % (Manual) 22 H Lymphocytes % Lymphocytes % (Manual) 8 L Reactive Lymphocytes % (Manual) 2 H Monocytes % Monocytes % (Manual) 6 Eosinophils % Basophils % Myelocytes % (Manual) 1 H Nucleated Red Blood Cells % 0.5 H Neutrophils # Neutrophils # (Manual) 9.5 H Band Neutrophils # 3.2 H Absolute Lymphocytes (Manual) 1.1 Lymphocytes # Reactive Lymphocytes # 0.2 H Monocytes # Absolute Monocytes (Manual) 0.8 Eosinophils # Basophils # Myelocytes # 0.1 H Nucleated Red Blood Cells # Platelet Estimate NORMAL Giant Platelets 1 H Polychromasia 3+ Poikilocytosis 1+ Anisocytosis 1+ Microcytosis 1+ Sodium Level 146 H Potassium Level 4.2 Chloride Level 112 H Carbon Dioxide Level 23 Anion Gap 15 Blood Urea Nitrogen 39 #H Creatinine 0.86 Glucose Level 80 Calcium Level 7.5 L Phosphorus Level 3.8 Magnesium Level 2.6 H Blood Gas Respiration Rate 16.0 Blood Gas Tidal Volume 500.0 Imaging Free Text/Dictation PROCEDURE: XR Chest. CLINICAL INDICATION: pna chf TECHNIQUE: Single portable view of the chest was obtained. COMPARISON: CR CHEST 03/10/2014; CR CHEST 06/17/2013 FINDINGS: Endotracheal tube terminates 3 cm above the tessie. Right internal jugular central venous catheter terminates near the atriocaval caval junction. A nasogastric tube extends below the left hemidiaphragm. The cardiomediastinal silhouette is stable in size and configuration. Interval dense left base opacification secondary to the combination of infiltrates or atelectasis with pleural effusion. Ill-defined left perihilar parenchymal opacities are noted. The right lung is grossly clear. No evidence of a pneumothorax. IMPRESSION: 1. Dense opacification of the left lower lobe by atelectasis or infiltrates with pleural effusion. 2. Left perihilar parenchymal opacities. 3. Satisfactory position of support lines and tubes. RPTAT: HRSR Physician Carol Date Time Electronically viewed and signed by Physician Carol on 08/08/2017 07 :36 RR/ CC: YONATAN MAC MD, [facility] Medications Medications Current Medications Acetaminophen 650 mg 650 mg Q4H PRN PO pain/fever; Start 07/24/17 at 07:00; Status Future Hold Acetaminophen 100 ml @ 400 mls/hr Q6H IVPB Last administered on 08/08/17 05: 22; Admin Dose 400 MLS/HR; Start 07/26/17 at 18:00 Ondansetron HCl/ Sodium Chloride (Zofran Inj/NS) 54 ml @ 216 mls/hr Q6H PRN IV NAUSEA AND/OR VOMITING Last administered on 08/05/17 03:50; Admin Dose 216 MLS/HR; Start 07/27/17 at 13:00 Phenol (Chloraseptic Throat [place]) 2 spray Q2H PRN MT SORE THROAT Last administered on 07/29/17 18:10; Admin Dose 2 SPRAY; Start 07/29/17 at 13:00 Diphenhydramine HCl (Benadryl) 25 mg Q6H PRN IV SLEEP Last administered on 08/01 00:19; Admin Dose 25 MG; Start 07/31/17 at 13:00 Chlorpromazine 10 mg 10 mg Q6 PRN IM HICCUPS Last administered on 08/04/17 21: 21; Admin Dose 10 MG; Start 08/02/17 at 06:00 Sodium Chloride (NS) 1,000 ml @ 50 mls/hr Q20H IV Last administered on 09:05; Admin Dose 50 MLS/HR; Start 08/03/17 at 18:00 Loratadine (Claritin) 10 mg DAILY NGT Last administered on 08/04/17 09:32; Admin Dose 10 MG; Start 08/04/17 at 09:00 Pantoprazole (Protonix Iv) 40 mg DAILY@06 IV Last administered on 08/08/17 05: 22; Admin Dose 40 MG; Start 08/06/17 at 06:00 Hydromorphone HCl 0.5 mg 0.5 mg Q2H PRN IV PAIN Last administered on 08/08/17 08:13; Admin Dose 0.5 MG; Start 08/05/17 at 22:30 Propofol (Diprivan) 100 ml @ 2.79 mls/hr Q12H IV Last administered on 09:03; Admin Dose 16.74 MLS/HR; Start 08/05/17 at 23:45 Morphine Sulfate 2 mg 2 mg Q2H PRN IV PAIN Last administered on 08/07/17 10:48 ; Admin Dose 2 MG; Start 08/05/17 at 23:45 Norepinephrine 16 mg/Dextrose 500 ml @ 1.87 mls/hr TITRATE IV Last administered on 08/06/17 02:05; Admin Dose 5.62 MLS/HR; Start 08/06/17 at 00:30 Vancomycin HCl 1.5 gm/Sodium Chloride 250 ml @ 83.333 mls/ hr Q24H IVPB Last administered on 08/07/17 12:09; Admin Dose 83.333 MLS/HR; Start 08/07/17 at 12: 00 Meropenem/Sodium Chloride (Merrem 1 Gm/50 ml (Pmx)) 50 ml @ 100 mls/hr Q12 IVPB Last administered on 08/08/17 08:13; Admin Dose 100 MLS/HR; Start at 21:00 Hydralazine HCl (Apresoline) 10 mg Q6H PRN IV sbp>170; Start 08/07/17 at 18:00 RAE CALVO Aug 08, 2017 09:41
--- NOTE | 2017-08-08 10:22 | CONS ---
Date/Time of Note Date/Time of Note DATE: 08/08/17 TIME: 10:20 Consult Date/Type/Reason Admit Date/Time Jul 24, 2017 at 06:16 Initial Consult Date 08/05/17 Type of Consultation: Pulmonary Ordering Provider: RAE CALVO Subjective Awake alert comfortable. Anxious. Objective Vital Signs Date Time Temp Pulse Resp B/P Pulse Ox O2 Delivery O2 Flow Rate FiO2 08/08/17 08:00 98.7 73 25 134/61 98 Mechanical Ventilator 08/08/17 08:00 30 08/05/17 13:19 5.0 Intake and Output 08/07/17 08/07/17 08/08/17 14:59 22:59 06:59 Intake Total 1017.106 ml 1250.586 ml 842.18 ml Output Total 843 ml 1310 ml 998 ml Balance 174.106 ml -59.414 ml -155.82 ml Exam PHYSICAL EXAMINATION: GENERAL: Well-nourished, well-developed lady, intubated on mechanical ventilation, appears comfortable at rest, no acute distress. VITAL SIGNS: NECK: Supple, no JVD or lymphadenopathy. CARDIAC: S1, S2, no added sounds or murmurs. CHEST: Diminished air entry bilaterally. ABDOMEN: Soft, nontender. No guarding or rebound. EXTREMITIES: No cyanosis, clubbing, 1+ edema. NEUROLOGIC: Generalized weakness. Results/Medications Result Diagram: 08/08/17 0500 08/08/17 0500 Results 24 hrs Chest x-ray Left pleural effusion with volume loss. Laboratory Tests Test 08/07/17 11:11 08/08/17 04:58 08/08/17 05:00 08/08/17 07:00 Blood Gas Specimen Source Blood arterial Blood arterial Arterial Blood Date Drawn 08/07/2017 11:20:56 AM 08/08/2017 7:20:53 AM Arterial Blood pH (Temp corrected) 7.372 7.430 Arterial Blood pCO2 (Temp correct) 35.3 30.1 L Arterial Blood pO2 (Temp corrected) 82.2 98.1 Arterial Blood HCO3 20.0 L 19.5 L Arterial Blood Base Excess -4.7 L -3.9 L Arterial Blood Oxygen Saturation 94.9 L 97.2 Brian Test N/A N/A Arterial Blood Gas Puncture Site A-Line A-Line Arterial Blood Carboxyhemoglobin 0.3 0.3 Arterial Blood Methemoglobin 0.2 0.2 Blood Gas A-a O2 Differential 90.2 H 80.4 H Oxyhemoglobin Percent 94.4 96.7 Total Hemoglobin 9.3 L 10.7 L Blood Gas Temperature 37.0 37.0 Blood Gas Actual Respiration Rate 27 20 Blood Gas Modality VENT - CPAP VENT - AC FiO2 30.0 30.0 Blood Gas Low PEEP Setting 5.0 5.0 Blood Gas Pressure Support 10 Blood Gas Notified Whom JUANA ARIAS Blood Gas Notified Time 08/07/2017 11:34:33 AM 08/08/2017 7:58:35 AM Lab Scanned Report BLOOD TRANSFUSION White Blood Count 14.8 H Red Blood Count 3.71 #L Hemoglobin 9.6 #L Hematocrit 31.1 #L Mean Corpuscular Volume 83.8 Mean Corpuscular Hemoglobin 25.9 L Mean Corpuscular Hemoglobin Concent 30.9 L Red Cell Distribution Width 21.2 H Platelet Count 417 #H Mean Platelet Volume 11.8 H Neutrophils % Segmented Neutrophils % (Manual) 61 Band Neutrophils % (Manual) 22 H Lymphocytes % Lymphocytes % (Manual) 8 L Reactive Lymphocytes % (Manual) 2 H Monocytes % Monocytes % (Manual) 6 Eosinophils % Basophils % Myelocytes % (Manual) 1 H Nucleated Red Blood Cells % 0.5 H Neutrophils # Neutrophils # (Manual) 9.5 H Band Neutrophils # 3.2 H Absolute Lymphocytes (Manual) 1.1 Lymphocytes # Reactive Lymphocytes # 0.2 H Monocytes # Absolute Monocytes (Manual) 0.8 Eosinophils # Basophils # Myelocytes # 0.1 H Nucleated Red Blood Cells # Platelet Estimate NORMAL Giant Platelets 1 H Polychromasia 3+ Poikilocytosis 1+ Anisocytosis 1+ Microcytosis 1+ Sodium Level 146 H Potassium Level 4.2 Chloride Level 112 H Carbon Dioxide Level 23 Anion Gap 15 Blood Urea Nitrogen 39 #H Creatinine 0.86 Glucose Level 80 Calcium Level 7.5 L Phosphorus Level 3.8 Magnesium Level 2.6 H Blood Gas Respiration Rate 16.0 Blood Gas Tidal Volume 500.0 Medications Current Medications Acetaminophen 650 mg 650 mg Q4H PRN PO pain/fever; Start 07/24/17 at 07:00; Status Future Hold Acetaminophen 100 ml @ 400 mls/hr Q6H IVPB Last administered on 08/08/17t 05: 22; Admin Dose 400 MLS/HR; Start 07/26/17 at 18:00 Ondansetron HCl/ Sodium Chloride (Zofran Inj/NS) 54 ml @ 216 mls/hr Q6H PRN IV NAUSEA AND/OR VOMITING Last administered on 08/05/17 03:50; Admin Dose 216 MLS/HR; Start 07/27/17 at 13:00 Phenol (Chloraseptic Throat [place]) 2 spray Q2H PRN MT SORE THROAT Last administered on 07/29/17 18:10; Admin Dose 2 SPRAY; Start 07/29/17 at 13:00 Diphenhydramine HCl (Benadryl) 25 mg Q6H PRN IV SLEEP Last administered on 08/01 00:19; Admin Dose 25 MG; Start 07/31/17 at 13:00 Chlorpromazine 10 mg 10 mg Q6 PRN IM HICCUPS Last administered on 08/04/17 21: 21; Admin Dose 10 MG; Start 08/02/17 at 06:00 Sodium Chloride (NS) 1,000 ml @ 50 mls/hr Q20H IV Last administered on 09:05; Admin Dose 50 MLS/HR; Start 08/03/17 at 18:00 Loratadine (Claritin) 10 mg DAILY NGT Last administered on 08/04/17 09:32; Admin Dose 10 MG; Start 08/04/17 at 09:00 Pantoprazole (Protonix Iv) 40 mg DAILY@06 IV Last administered on 08/08/17 05: 22; Admin Dose 40 MG; Start 08/06/17 at 06:00 Hydromorphone HCl 0.5 mg 0.5 mg Q2H PRN IV PAIN Last administered on 08/08/17 08:13; Admin Dose 0.5 MG; Start 08/05/17 at 22:30 Propofol (Diprivan) 100 ml @ 2.79 mls/hr Q12H IV Last administered on 09:03; Admin Dose 16.74 MLS/HR; Start 08/05/17 at 23:45 Morphine Sulfate 2 mg 2 mg Q2H PRN IV PAIN Last administered on 08/07/17 10:48 ; Admin Dose 2 MG; Start 08/05/17 at 23:45 Norepinephrine 16 mg/Dextrose 500 ml @ 1.87 mls/hr TITRATE IV Last administered on 08/06/17 02:05; Admin Dose 5.62 MLS/HR; Start 08/06/17 at 00:30 Vancomycin HCl 1.5 gm/Sodium Chloride 250 ml @ 83.333 mls/ hr Q24H IVPB Last administered on 08/07/17 12:09; Admin Dose 83.333 MLS/HR; Start 08/07/17 at 12: 00 Meropenem/Sodium Chloride (Merrem 1 Gm/50 ml (Pmx)) 50 ml @ 100 mls/hr Q12 IVPB Last administered on 08/08/17 08:13; Admin Dose 100 MLS/HR; Start at 21:00 Hydralazine HCl (Apresoline) 10 mg Q6H PRN IV sbp>170; Start 08/07/17 at 18:00 Assessment/Plan Chief Complaint/Hosp Course IMPRESSION 1. Status post exploratory laparotomy and now ileostomy. 2. Recent bowel resection for colon carcinoma. 3. History of atrial fibrillation, congestive cardiac failure. 4. Hypoxemic respiratory failure with left pleural effusion PLAN: 1. CPAP trial, after thoracentesis 2. Post-extubation incentive spirometry. 3. Continue postop surgical recommendations including nasogastric tube suction. 4. Deep venous thrombosis and gastrointestinal prophylaxis. 5. Continue antibiotics. Keep in ICU. Critical care time 40 minutes. Problems: YONATAN MAC MD, [facility] Aug 08, 2017 10:22
[2017-08-08] MEDS: FUROSEMIDE 40 MG INJ IV SCH (11:10)
[2017-08-08] MEDS: VANCOMYCIN 1 GM in NS 250 ML IVPB SCH ×2 (11:47→23:47)
--- NOTE | 2017-08-08 13:43 | CONS ---
Date/Time of Note Date/Time of Note DATE: 08/08/17 TIME: 13:41 Assessment/Plan Assessment/Plan Additional Assessment/Plan Paroxysmal atrial fibrillation with rapid ventricular rates, currently sinus Low normal ejection fraction 50% Colon mass status post colon surgery July 26, 2017 and repeat August 05, 2017 Acute kidney injury Sepsis Vent dependent respiratory failure -Patient remains in sinus rhythm. If episodes of recurrent atrial fibrillation , would restart IV amiodarone. As needed antihypertensives. IV fluids and electrolyte management as per our nephrology colleagues. Vent management as per pulmonary. Consultation Date/Type/Reason Admit Date/Time Jul 24, 2017 at 06:16 Initial Consult Date 07/29/17 Type of Consultation: cv Referring Provider: RAE CALVO 24 HR Interval Summary Free Text/Dictation Patient seen and examined, remains intubated and sedated Exam/Review of Systems Vital Signs Vitals Vital Signs Date Time Temp Pulse Resp B/P Pulse Ox O2 Delivery O2 Flow Rate FiO2 08/08/17 12:00 75 08/08/17 12:00 99.0 17 133/62 99 Mechanical Ventilator 08/08/17 08:00 30 08/05/17 13:19 5.0 Intake and Output 08/07/17 08/07/17 08/08/17 15:00 23:00 07:00 Intake Total 1347.179 ml 892.253 ml 750.44 ml Output Total 1143 ml 1010 ml 898 ml Balance 204.179 ml -117.747 ml -147.56 ml Exam Intubated and sedated, no apparent distress Head: normocephalic ENMT: intubated Respiratory: other (Coarse breath sounds bilaterally, no wheezing) Cardiovascular: other (S1-S2 heard), regular rate and rhythm Gastrointestinal: bowel sounds, non-tender, soft Extremities: edema Results Result Diagram: 08/08/17 0500 08/08/17 0500 Results 24 hrs Laboratory Tests Test 08/08/17 04:58 08/08/17 05:00 08/08/17 07:00 Lab Scanned Report BLOOD TRANSFUSION White Blood Count 14.8 H Red Blood Count 3.71 #L Hemoglobin 9.6 #L Hematocrit 31.1 #L Mean Corpuscular Volume 83.8 Mean Corpuscular Hemoglobin 25.9 L Mean Corpuscular Hemoglobin Concent 30.9 L Red Cell Distribution Width 21.2 H Platelet Count 417 #H Mean Platelet Volume 11.8 H Neutrophils % Segmented Neutrophils % (Manual) 61 Band Neutrophils % (Manual) 22 H Lymphocytes % Lymphocytes % (Manual) 8 L Reactive Lymphocytes % (Manual) 2 H Monocytes % Monocytes % (Manual) 6 Eosinophils % Basophils % Myelocytes % (Manual) 1 H Nucleated Red Blood Cells % 0.5 H Neutrophils # Neutrophils # (Manual) 9.5 H Band Neutrophils # 3.2 H Absolute Lymphocytes (Manual) 1.1 Lymphocytes # Reactive Lymphocytes # 0.2 H Monocytes # Absolute Monocytes (Manual) 0.8 Eosinophils # Basophils # Myelocytes # 0.1 H Nucleated Red Blood Cells # Platelet Estimate NORMAL Giant Platelets 1 H Polychromasia 3+ Poikilocytosis 1+ Anisocytosis 1+ Microcytosis 1+ Sodium Level 146 H Potassium Level 4.2 Chloride Level 112 H Carbon Dioxide Level 23 Anion Gap 15 Blood Urea Nitrogen 39 #H Creatinine 0.86 Glucose Level 80 Calcium Level 7.5 L Phosphorus Level 3.8 Magnesium Level 2.6 H Blood Gas Specimen Source Blood arterial Arterial Blood Date Drawn 08/08/2017 7:20:53 AM Arterial Blood pH (Temp corrected) 7.430 Arterial Blood pCO2 (Temp correct) 30.1 L Arterial Blood pO2 (Temp corrected) 98.1 Arterial Blood HCO3 19.5 L Arterial Blood Base Excess -3.9 L Arterial Blood Oxygen Saturation 97.2 Brian Test N/A Arterial Blood Gas Puncture Site A-Line Arterial Blood Carboxyhemoglobin 0.3 Arterial Blood Methemoglobin 0.2 Blood Gas A-a O2 Differential 80.4 H Oxyhemoglobin Percent 96.7 Total Hemoglobin 10.7 L Blood Gas Temperature 37.0 Blood Gas Respiration Rate 16.0 Blood Gas Actual Respiration Rate 20 Blood Gas Modality VENT - AC FiO2 30.0 Blood Gas Tidal Volume 500.0 Blood Gas Low PEEP Setting 5.0 Blood Gas Notified Whom JLD Blood Gas Notified Time 08/08/2017 7:58:35 AM Medications Medications Current Medications Acetaminophen 650 mg 650 mg Q4H PRN PO pain/fever; Start 07/24/17 at 07:00; Status Future Hold Acetaminophen 100 ml @ 400 mls/hr Q6H IVPB Last administered on 08/08/17t 11: 46; Admin Dose 400 MLS/HR; Start 07/26/17 at 18:00 Ondansetron HCl/ Sodium Chloride (Zofran Inj/NS) 54 ml @ 216 mls/hr Q6H PRN IV NAUSEA AND/OR VOMITING Last administered on 08/05/17 03:50; Admin Dose 216 MLS/HR; Start 07/27/17 at 13:00 Phenol (Chloraseptic Throat [place]) 2 spray Q2H PRN MT SORE THROAT Last administered on 07/29/17 18:10; Admin Dose 2 SPRAY; Start 07/29/17 at 13:00 Diphenhydramine HCl (Benadryl) 25 mg Q6H PRN IV SLEEP Last administered on 08/01 00:19; Admin Dose 25 MG; Start 07/31/17 at 13:00 Chlorpromazine 10 mg 10 mg Q6 PRN IM HICCUPS Last administered on 08/04/17 21: 21; Admin Dose 10 MG; Start 08/02/17 at 06:00 Sodium Chloride (NS) 1,000 ml @ 50 mls/hr Q20H IV Last administered on 11:47; Admin Dose 50 MLS/HR; Start 08/03/17 at 18:00 Loratadine (Claritin) 10 mg DAILY NGT Last administered on 08/04/17 09:32; Admin Dose 10 MG; Start 08/04/17 at 09:00 Pantoprazole (Protonix Iv) 40 mg DAILY@06 IV Last administered on 08/08/17 05: 22; Admin Dose 40 MG; Start 08/06/17 at 06:00 Hydromorphone HCl 0.5 mg 0.5 mg Q2H PRN IV PAIN Last administered on 08/08/17 08:13; Admin Dose 0.5 MG; Start 08/05/17 at 22:30 Propofol (Diprivan) 100 ml @ 2.79 mls/hr Q12H IV Last administered on 09:03; Admin Dose 16.74 MLS/HR; Start 08/05/17 at 23:45 Morphine Sulfate 2 mg 2 mg Q2H PRN IV PAIN Last administered on 08/07/17 10:48 ; Admin Dose 2 MG; Start 08/05/17 at 23:45 Norepinephrine 16 mg/Dextrose 500 ml @ 1.87 mls/hr TITRATE IV Last administered on 08/06/17 02:05; Admin Dose 5.62 MLS/HR; Start 08/06/17 at 00:30 Meropenem/Sodium Chloride (Merrem 1 Gm/50 ml (Pmx)) 50 ml @ 100 mls/hr Q12 IVPB Last administered on 08/08/17 08:13; Admin Dose 100 MLS/HR; Start at 21:00 Hydralazine HCl 10 mg 10 mg Q6H PRN IV sbp>170; Start 08/07/17 at 18:00 Vancomycin HCl (Vancocin) 250 ml @ 125 mls/hr Q12H IVPB Last administered on 08/08/17 11:47; Admin Dose 125 MLS/HR; Start 08/08/17 at 12:00 Miscellaneous Information (*Rx Drug Level Order Reminder*) VANCO TROUGH @ 1, 100 ON ... ONCE ONCE XX ; Start 08/09/17 at 11:00; Stop 08/09/17 at 11:01 Fercho Mojica DO Aug 08, 2017 13:43
--- NOTE | 2017-08-08 13:50 | PN ---
DATE: 08/08/2017 SUBJECTIVE: No acute events overnight. The patient remains intubated, sedated, looks comfortable. VITAL SIGNS: T-max 100.3, T-current 99, pulse 75, respirations 17, blood pressure 133/62, saturatio n 99% on vent. WBC 14.8, H and H 9.6 and 31.1, platelets 417, BUN 39, creatinine 0.86. MICROBIOLOGY: Abdominal fluid culture growing enterococcus species and E. coli. Final sensitivitie s pending, aerobic cultures in progress. INDWELLINGS: Endotracheal tube, NG tube, Leal catheter, bilateral JPs and colostomy. DIAGNOSTICS: Chest x-ray revealed dense opacification of the left lower lobe, by atelectasis or inf iltrate with pleural effusion, left perihilar parenchymal opacities. ANTIMICROBIALS: 1. IV meropenem. 2. Vancomycin. PHYSICAL EXAMINATION: GENERAL: Well-developed, middle-aged white woman who is intubated, sedated and in no distress. HEENT: Head atraumatic, normocephalic. Sclerae anicteric. Buccal mucosa dry. NECK: Supple. CHEST: Rise symmetrical. Breath sounds diminished to bases. HEART: S1, S2. ABDOMEN: Soft. Bowel tones hypoactive. EXTREMITIES: Without cyanosis. ASSESSMENT: 1. Sepsis. 2. History of colon cancer, status post urgent resection with primary anastomosis complicated by an astomotic leak. The patient is status post exploratory laparotomy, with drainage of abscess, drain placement, partial colectomy and colostomy on . 3. Paroxysmal atrial fibrillation status post rapid ventricular response couple days ago. 4. Respiratory failure. 5. Possible pneumonia. 6. Anemia. 7. Acute kidney injury, with creatinine improving. PLAN: The patient remains hemodynamically stable. Final cultures are pending. She is afebrile. W e will continue her on broad spectrum antibiotics until sensitivities are back. Continue weaning tr ials as per pulmonary. Follow surgical cardiology recommendations. Dictated By: YG TARANGO [employer] MINISTER for LUIS FERNANDO IGLESIAS/VINNY Conf#: [id number] DID#: [id number]
--- NOTE | 2017-08-08 15:33 | RADRPT ---
PROCEDURE: US guided left thoracentesis. CLINICAL INDICATION: Shortness of breath. Left pleural effusion. TECHNIQUE: Prior to the procedure, informed consent was obtained. The risks, benefits, and alternatives were e xplained to the patient or the patient's family, including but not limited to bleeding, infection, p ain, visceral or vascular damage, shock, pneumothorax, chest tube placement, air embolism, and . The patient or the patient's family understood the risks and the alternatives and wished to proce ed with the study. Informed written consent was obtained. A procedural pause was performed. The patient's name, date of , and procedure to be performed were verified. Ultrasound of the left hemithorax was performed in the axial and sagittal planes. A left pleural eff usion is noted. Utilizing ultrasound guidance, optimal location for entry to the pleural cavity was ascertained. The overlying skin was prepped and draped in the usual sterile fashion. Approximately 10 ml of 1% Xylocaine was injected locally for pain control. Using ultrasound guidance, a 5-[place] Yueh catheter was introduced into the left pleural space without difficulty. Fluid was aspirated. COMPARISON: Chest x-ray done earlier the same day. FINDINGS: Initial ultrasound demonstrates fluid in the left pleural space. Approximately 0.400 liters of sero us fluid was aspirated and sent to the laboratory. IMPRESSION: 1. Satisfactory ultrasound-guided left thoracentesis. RPTAT: QQ .Kana Renteria MD, MD Date Time Electronically viewed and signed by .Kana Renteria MD, on 08/08/2017 15:32 .R/
[2017-08-08] MEDS ORDERED: LIDOCAINE 1% (MPF) 5 ML VIAL ONE (15:38)
[2017-08-08 16:24] LABS: FLD RBC 4000 /uL; FLD WBC 625 /cmm
[2017-08-08 16:36] LABS: FLUID GLUCOSE 64 mg/dl; FLUID LD 1677 U/L; FLUID TOTAL PROTEIN < 2.0 g/dl; FLUID TYPE PLEURAL FLUID
[2017-08-08 16:49] LABS: FLD TYPE PLEURAL
[2017-08-08 16:50] LABS: FLD CLARITY CLOUDY; FLD COLOR YELLOW
--- NOTE | 2017-08-08 16:55 | RADRPT ---
PROCEDURE: XR Chest. CLINICAL INDICATION: Post thoracentesis TECHNIQUE: Single portable view of the chest was obtained. COMPARISON: 08/08/2017 FINDINGS: Endotracheal tube tip well positioned over the mid tracheal shadow. Enteric tube tip passes below th e diaphragm and below the field of view. Right internal jugular central line with the tip over the distal superior vena cava. Stable cardiomediastinal silhouette. Improved aeration in the left lung. Left basilar airspace opac ity likely representing atelectasis. Small residual left pleural effusion. No evidence of pneumothor ax. IMPRESSION: 1. Stable position of central line and tubes. 2. Improved aeration of the left lung with small residual left pleural effusion and left lower lobe opacity likely representing atelectasis. RPTAT:AAJJ Physician Ibrahima Date Time Electronically viewed and signed by Dee Lantigua Physician on 08/08/2017 16:54 /
[2017-08-08 20:16] LABS: FLD MN % (M) 19 %; FLD PMN % (M) 60 %
[2017-08-08 20:17] LABS: PATH REVIEW? YES-PATH TO CONFIRM
[2017-08-09] VITALS (47 sets, daily range): BP systolic 133–209; BP diastolic 59–97; PULSE 74–105; RESP 14–30; Ht 167.6 cm; Wt 105.6 kg
[2017-08-09] MEDS: PROPOFOL 100 ML IV SCH ×2 (00:28→05:13)
[2017-08-09] MEDS: ACETAMINOPHEN 1000MG/100ML IV 100 ML IVPB SCH ×3 (05:27→17:17)
[2017-08-09 06:00] LABS: ABNORMAL IP MESSAGE 1; BASOPHILS % 0.1 % (0.0-2.0); EOSINOPHILS # 0.1 10^3/ul (0.0-0.5); EOSINOPHILS % 0.4 % (0.0-7.0); HEMATOCRIT 35.2 % (37.0-47.0); HEMOGLOBIN 10.5 g/dl (12.0-16.0); LYMPHOCYTES # 1.5 10^3/ul (0.8-2.9); LYMPHOCYTES % 9.2 % (15.0-51.0); MEAN CORPUSCULAR HEMOGLOBIN 25.7 pg (29.0-33.0); MEAN CORPUSCULAR HGB CONC 29.8 g/dl (32.0-37.0); MEAN CORPUSCULAR VOLUME 86.3 fl (82.0-101.0); MEAN PLATELET VOLUME 11.4 fl (7.4-10.4); MONOCYTE # 0.7 10^3/ul (0.3-0.9); MONOCYTES % 4.4 % (0.0-11.0); NEUTROPHIL # 13.3 10^3/ul (1.6-7.5); NEUTROPHILS % 78.8 % (39.0-77.0); NUCLEATED RED BLOOD CELLS% 0.1 /100WBC (0.0-0.0); PLATELET COUNT 580 10^3/UL (140-415); RED BLOOD COUNT 4.08 10^6/ul (4.20-5.40); RED CELL DISTRIBUTION WIDTH 21.6 % (11.5-14.5); WHITE BLOOD COUNT 16.8 10^3/ul (4.8-10.8)
[2017-08-09 06:02] LABS: POSITIVE DIFF @See below
[2017-08-09 06:32] LABS: MAGNESIUM 2.6 mg/dl (1.7-2.5); PHOSPHORUS 3.6 mg/dl (2.5-4.9)
[2017-08-09 06:33] LABS: ALBUMIN 2.4 g/dl (3.3-4.9); ALBUMIN/GLOBULIN RATIO 0.82; BILIRUBIN,INDIRECT 0.2 mg/dl (0-1.1); BILIRUBIN,TOTAL 0.2 mg/dl (0.2-1.3); CALCIUM 7.3 mg/dl (8.4-10.2); CREATININE 0.63 mg/dl (0.44-1.00); TOTAL PROTEIN 5.3 g/dl (6.1-8.1)
[2017-08-09] MEDS: HYDROmorphONE 0.5 MG/0.5 ML SYG IV PRN ×3 (06:52→14:55)
--- NOTE | 2017-08-09 07:53 | RADRPT ---
PROCEDURE: XR Chest. CLINICAL INDICATION: Respiratory failure TECHNIQUE: An AP view of the chest was obtained. COMPARISON: Chest x-ray dated 08/08/2017 FINDINGS: The endotracheal tube tip is approximately 3.7 cm above the tessie. The tip of the enteric tube ex tends below the left diaphragm. There is a right internal jugular central venous catheter with tip n ear the cavoatrial junction. Lung volumes are low. There is prominence of the central pulmonary vascular markings with small bila teral pleural effusions. No pneumothorax is seen. The cardiomediastinal silhouette is within norm al limits for size. The osseous structures are unremarkable. IMPRESSION: 1. Prominent pulmonary vascular markings, at least partially related to low lung volumes. Mild pulm onary vascular congestion is not excluded. No significant interval change. 2. Small bilateral pleural effusions, also unchanged. 3. Tubes and lines, as described above. RPTAT: HH .Sabrina Bey MD, MD Date Time Electronically viewed and signed by .Sabrina Bey MD, on 08/09/2017 07:53 .G/
[2017-08-09] MEDS: LORATADINE 10 MG TAB NGT SCH (08:40)
[2017-08-09] MEDS: FAMOTIDINE 20 MG INJ IV SCH ×2 (08:57→21:20)
[2017-08-09] MEDS: MEROPENEM 1 GM/50ML(PMX) 50 ML IVPB SCH ×2 (08:57→21:20)
--- NOTE | 2017-08-09 09:02 | PN ---
Date/Time of Note Date/Time of Note DATE: 08/09/17 TIME: 09:00 Assessment/Plan VTE Prophylaxis VTE Prophylaxis Intervention: SCD's Lines/Catheters IV Catheter Type (from Nrs): A Line Urinary Cath still in place: Yes Reason Cath still needed: urinary retention Assessment/Plan Chief Complaint/Hosp Course 51 yo F with bleeding colon cancer taken to the OR for urgent resection with primary anastomosis postop course was ok and was tolerating clears until she develop afib with RVR and diaphoresis was transferred to the ICU, she developed ileus and emesis, CT scan showed anastomotic leak patient taken to the OR for washout and colostomy placement. was on pressors for one night now off. Problems: Assessment/Plan possible extubation today after left pleural effusion was drained will need to start diet once extubated Subjective 24 Hr Interval Summary Free Text/Dictation left pleural effusion tapped yesterday with 400 ml output per report possible extubation today Exam/Review of Systems Vital Signs Vitals Vital Signs Date Time Temp Pulse Resp B/P Pulse Ox O2 Delivery O2 Flow Rate FiO2 08/09/17 08:30 75 21 157/74 98 Mechanical Ventilator 08/09/17 08:00 98.5 08/09/17 07:28 30 08/05/17 13:19 5.0 Intake and Output 08/08/17 08/08/17 08/09/17 15:00 23:00 07:00 Intake Total 833.92 ml 595.08 ml 917.18 ml Output Total 768 ml 960 ml 865 ml Balance 65.92 ml -364.92 ml 52.18 ml Exam colostomy viable and functioning Results Result Diagram: 08/09/17 0445 08/09/17 0445 Results 24 hrs Laboratory Tests Test 08/08/17 14:00 08/09/17 04:45 Pathologist Review (Hematology) YES-PATH TO CONFIRM Body Fluid Type PLEURAL FLUID Body Fluid Volume 400.0 Body Fluid Color YELLOW Body Fluid Appearance CLOUDY Body Fluid WBC 625 Body Fluid RBC (Auto) 4000 Body Fluid Polynuclear WBCs 60 Body Fluid Polynuclear WBCs (%) Body Fluid Mononuclear WBCs 19 Body Fluid Mononuclear Cells % Auto Body Fluid Other Cells Body Fluid Glucose 64 Body Fluid Total Protein < 2.0 Body Fluid Lactate Dehydrogenase 1677 White Blood Count 16.8 H Red Blood Count 4.08 L Hemoglobin 10.5 L Hematocrit 35.2 L Mean Corpuscular Volume 86.3 Mean Corpuscular Hemoglobin 25.7 L Mean Corpuscular Hemoglobin Concent 29.8 L Red Cell Distribution Width 21.6 H Platelet Count 580 #H Mean Platelet Volume 11.4 H Neutrophils % 78.8 H Lymphocytes % 9.2 L Monocytes % 4.4 Eosinophils % 0.4 Basophils % 0.1 Nucleated Red Blood Cells % 0.1 H Neutrophils # 13.3 H Lymphocytes # 1.5 Monocytes # 0.7 Eosinophils # 0.1 Basophils # 0.0 Nucleated Red Blood Cells # 0.0 Sodium Level 148 H Potassium Level 4.0 Chloride Level 114 H Carbon Dioxide Level 20 L Anion Gap 18 H Blood Urea Nitrogen 25 #H Creatinine 0.63 Glucose Level 89 Calcium Level 7.3 L Phosphorus Level 3.6 Magnesium Level 2.6 H Total Bilirubin 0.2 Direct Bilirubin 0.00 Indirect Bilirubin 0.2 Aspartate Amino Transf (AST/SGOT) 59 H Alanine Aminotransferase (ALT/SGPT) 38 Alkaline Phosphatase 108 Total Protein 5.3 L Albumin 2.4 L Globulin 2.90 Albumin/Globulin Ratio 0.82 Medications Medications Current Medications Acetaminophen 650 mg 650 mg Q4H PRN PO pain/fever; Start 07/24/17 at 07:00; Status Future Hold Acetaminophen 100 ml @ 400 mls/hr Q6H IVPB Last administered on 08/09/17 05: 27; Admin Dose 400 MLS/HR; Start 07/26/17 at 18:00 Ondansetron HCl/ Sodium Chloride (Zofran Inj/NS) 54 ml @ 216 mls/hr Q6H PRN IV NAUSEA AND/OR VOMITING Last administered on 08/05/17 03:50; Admin Dose 216 MLS/HR; Start 07/27/17 at 13:00 Phenol (Chloraseptic Throat [place]) 2 spray Q2H PRN MT SORE THROAT Last administered on 07/29/17 18:10; Admin Dose 2 SPRAY; Start 07/29/17 at 13:00 Diphenhydramine HCl (Benadryl) 25 mg Q6H PRN IV SLEEP Last administered on 08/01 00:19; Admin Dose 25 MG; Start 07/31/17 at 13:00 Chlorpromazine 10 mg 10 mg Q6 PRN IM HICCUPS Last administered on 08/04/17 21: 21; Admin Dose 10 MG; Start 08/02/17 at 06:00 Sodium Chloride (NS) 1,000 ml @ 50 mls/hr Q20H IV Last administered on 11:47; Admin Dose 50 MLS/HR; Start 08/03/17 at 18:00 Loratadine (Claritin) 10 mg DAILY NGT Last administered on 08/04/17 09:32; Admin Dose 10 MG; Start 08/04/17 at 09:00 Hydromorphone HCl 0.5 mg 0.5 mg Q2H PRN IV PAIN Last administered on 06:52; Admin Dose 0.5 MG; Start 08/05/17 at 22:30 Propofol (Diprivan) 100 ml @ 2.79 mls/hr Q12H IV Last administered on 05:13; Admin Dose 16.74 MLS/HR; Start 08/05/17 at 23:45 Morphine Sulfate 2 mg 2 mg Q2H PRN IV PAIN Last administered on 08/07/17 10:48 ; Admin Dose 2 MG; Start 08/05/17 at 23:45 Norepinephrine 16 mg/Dextrose 500 ml @ 1.87 mls/hr TITRATE IV Last administered on 08/06/17 02:05; Admin Dose 5.62 MLS/HR; Start 08/06/17 at 00:30 Meropenem/Sodium Chloride (Merrem 1 Gm/50 ml (Pmx)) 50 ml @ 100 mls/hr Q12 IVPB Last administered on 08/09/17 08:57; Admin Dose 100 MLS/HR; Start at 21:00 Hydralazine HCl 10 mg 10 mg Q6H PRN IV sbp>170; Start 08/07/17 at 18:00 Vancomycin HCl (Vancocin) 250 ml @ 125 mls/hr Q12H IVPB Last administered on 08/08/17 23:47; Admin Dose 125 MLS/HR; Start 08/08/17 at 12:00 Miscellaneous Information (*Rx Drug Level Order Reminder*) VANCO TROUGH @ 1, 100 ON ... ONCE ONCE XX ; Start 08/09/17 at 11:00; Stop 08/09/17 at 11:01 Famotidine (Pepcid Iv) 20 mg BID IV Last administered on 08/09/17t 08:57; Admin Dose 20 MG; Start 08/09/17 at 09:00 Hilario BOTELLO Aug 09, 2017 09:01
--- NOTE | 2017-08-09 09:53 | PN ---
Date/Time of Note Date/Time of Note DATE: 08/09/17 TIME: 09:48 Assessment/Plan VTE Prophylaxis VTE Prophylaxis Intervention: SCD's Lines/Catheters IV [facility] Type (from [facility] A Line Urinary Cath still in place: Yes Reason Cath still needed: other (indicate) Assessment/Plan Assessment/Plan 51 year old female with: 1. Postop anastomotic leak with sepsis, status post ex lap with drainage of abscesses, drain placement, partial colectomy and colostomy POD#4 Status post Left hemicolectomy for sigmoid adenocarcinoma/mass POD#12 Intraoperative/intraperitoneal cultures positive for E. coli, enterococcus, staph aureus. We will discuss with infectious disease antibiotic adjustment, currently patient on vancomycin and meropenem, and known to have multiple allergies including penicillin allergy. Patient otherwise fairly stable postoperatively. No pressors. Per Dr. Aldana, patient to initiate nutrition soon. We will see if can be given orally versus need for TPN. 2. Acute respiratory failure currently remaining intubated postoperatively, volume overload, pulmonary edema and also possible aspiration pneumonia versus healthcare associated pneumonia, no pulmonary embolus. Still with left lower lobe questionable infiltrate versus just pleural effusion. Status post left thoracentesis yesterday with removal of 400 cc pleural fluid. Chest x-ray today with improved pulmonary edema. Patient currently on CPAP trial. Appreciate recommendations from nephrology and pulmonary. On IV antibiotics. 3. Atrial fibrillation, chronic, currently remains in sinus rhythm in the 80s. Off amiodarone drip and digoxin. Appreciate cardiology recommendations. Anticoagulation discontinued, discussed with cardiology for now will just leave her off anticoagulation for the remainder of her postoperative course. Electrolyte repletion as needed. 4. Chronic congestive heart failure, chronic diastolic dysfunction and ejection fraction of 55% on latest outpatient echocardiogram in January 2017 and confirmed to be 50% on this admission. Currently in volume overload, left thoracentesis today further diuretics as needed. Monitor volume status. 5. Acute kidney injury, in setting of sepsis, also had the contrast studies 2. Resolved, renal function back to normal. Leal catheter in place. Adequate urine output, will plan on discontinuing IV fluids today. Follow-up recommendations from nephrology, Dr. Kiser 6. Anemia, acute on chronic, postop: s/p 2 units of packed red blood cells, Hb up to 9.5 7. Hypertension, all antihypertensive on hold in setting of sepsis Prophylaxis: Off anticoagulation, SCDs, Pepcid for GI prophylaxis. Disposition: Patient currently on CPAP trial, continue volume management, renal function back to normal. Continue IV antibiotics. Follow up further recommendation from infectious disease, nephrology. Subjective 24 Hr Interval Summary Free Text/Dictation Patient status post thoracentesis and removal of 400 cc of pleural fluid, she is on CPAP trial this morning, has been off propofol since 7 30 am. She is awake and alert. So far tolerating CPAP trial. Appreciate recommendations from pulmonary, cardiology and general surgery. Will follow up nephrology recommendation but already plans to DC IV fluids today. Patient remained stable. Intraperitoneal cultures results noted and infectious disease on board. Exam/Review of Systems Vital Signs Vitals Vital Signs Date Time Temp Pulse Resp B/P Pulse Ox O2 Delivery O2 Flow Rate FiO2 08/09/17 08:30 75 21 157/74 98 Mechanical Ventilator 08/09/17 08:00 98.5 08/09/17 08:00 30 08/05/17 13:19 5.0 Intake and Output 08/08/17 08/08/17 08/09/17 14:59 22:59 06:59 Intake Total 567.18 ml 795.08 ml 983.92 ml Output Total 693 ml 985 ml 915 ml Balance -125.82 ml -189.92 ml 68.92 ml Exam Constitutional: alert, oriented, other (On CPAP trial, following commands.) Respiratory: diminished breath sounds (Bases bilaterally), other (Good air movement on CPAP trial) Cardiovascular: nl pulses, regular rate and rhythm Gastrointestinal: other (Colostomy bag in place, VITA drain 2.), soft Musculoskeletal: nl extremities to inspection, swelling (Much improved anasarca ) Extremities: normal pulses, other (No clubbing or cyanosis) Neurological: HEALTHCARE SPECIALIST II-XII intact, nl mental status, other (Still intubated.) Results Result Diagram: 08/09/1744408/09/17444 Results 24 hrs Laboratory Tests Test 08/08/17 14:00 08/09/17 04:45 Pathologist Review (Hematology) YES-PATH TO CONFIRM Body Fluid Type PLEURAL FLUID Body Fluid Volume 400.0 Body Fluid Color YELLOW Body Fluid Appearance CLOUDY Body Fluid WBC 625 Body Fluid RBC (Auto) 4000 Body Fluid Polynuclear WBCs 60 Body Fluid Polynuclear WBCs (%) Body Fluid Mononuclear WBCs 19 Body Fluid Mononuclear Cells % Auto Body Fluid Other Cells Body Fluid Glucose 64 Body Fluid Total Protein < 2.0 Body Fluid Lactate Dehydrogenase 1677 White Blood Count 16.8 H Red Blood Count 4.08 L Hemoglobin 10.5 L Hematocrit 35.2 L Mean Corpuscular Volume 86.3 Mean Corpuscular Hemoglobin 25.7 L Mean Corpuscular Hemoglobin Concent 29.8 L Red Cell Distribution Width 21.6 H Platelet Count 580 #H Mean Platelet Volume 11.4 H Neutrophils % 78.8 H Lymphocytes % 9.2 L Monocytes % 4.4 Eosinophils % 0.4 Basophils % 0.1 Nucleated Red Blood Cells % 0.1 H Neutrophils # 13.3 H Lymphocytes # 1.5 Monocytes # 0.7 Eosinophils # 0.1 Basophils # 0.0 Nucleated Red Blood Cells # 0.0 Sodium Level 148 H Potassium Level 4.0 Chloride Level 114 H Carbon Dioxide Level 20 L Anion Gap 18 H Blood Urea Nitrogen 25 #H Creatinine 0.63 Glucose Level 89 Calcium Level 7.3 L Phosphorus Level 3.6 Magnesium Level 2.6 H Total Bilirubin 0.2 Direct Bilirubin 0.00 Indirect Bilirubin 0.2 Aspartate Amino Transf (AST/SGOT) 59 H Alanine Aminotransferase (ALT/SGPT) 38 Alkaline Phosphatase 108 Total Protein 5.3 L Albumin 2.4 L Globulin 2.90 Albumin/Globulin Ratio 0.82 Imaging Free Text/Dictation PROCEDURE: XR Chest. CLINICAL INDICATION: Respiratory failure TECHNIQUE: An AP view of the chest was obtained. COMPARISON: Chest x-ray dated 08/08/2017 FINDINGS: The endotracheal tube tip is approximately 3.7 cm above the tessie. The tip of the enteric tube extends below the left diaphragm. There is a right internal jugular central venous catheter with tip near the cavoatrial junction. Lung volumes are low. There is prominence of the central pulmonary vascular markings with small bilateral pleural effusions. No pneumothorax is seen. The cardiomediastinal silhouette is within normal limits for size. The osseous structures are unremarkable. IMPRESSION: 1. Prominent pulmonary vascular markings, at least partially related to low lung volumes. Mild pulmonary vascular congestion is not excluded. No significant interval change. 2. Small bilateral pleural effusions, also unchanged. 3. Tubes and lines, as described above. Medications Medications Current Medications Acetaminophen 650 mg 650 mg Q4H PRN PO pain/fever; Start 07/24/17 at 07:00; Status Future Hold Acetaminophen 100 ml @ 400 mls/hr Q6H IVPB Last administered on 08/09/17 05: 27; Admin Dose 400 MLS/HR; Start 07/26/17 at 18:00 Ondansetron HCl/ Sodium Chloride (Zofran Inj/NS) 54 ml @ 216 mls/hr Q6H PRN IV NAUSEA AND/OR VOMITING Last administered on 08/05/17 03:50; Admin Dose 216 MLS/HR; Start 07/27/17 at 13:00 Phenol (Chloraseptic Throat [place]) 2 spray Q2H PRN MT SORE THROAT Last administered on 07/29/17 18:10; Admin Dose 2 SPRAY; Start 07/29/17 at 13:00 Diphenhydramine HCl (Benadryl) 25 mg Q6H PRN IV SLEEP Last administered on 08/01 00:19; Admin Dose 25 MG; Start 07/31/17 at 13:00 Chlorpromazine 10 mg 10 mg Q6 PRN IM HICCUPS Last administered on 08/04/17 21: 21; Admin Dose 10 MG; Start 08/02/17 at 06:00 Sodium Chloride (NS) 1,000 ml @ 50 mls/hr Q20H IV Last administered on 11:47; Admin Dose 50 MLS/HR; Start 08/03/17 at 18:00 Loratadine (Claritin) 10 mg DAILY NGT Last administered on 08/04/17 09:32; Admin Dose 10 MG; Start 08/04/17 at 09:00 Hydromorphone HCl 0.5 mg 0.5 mg Q2H PRN IV PAIN Last administered on 09:25; Admin Dose 0.5 MG; Start 08/05/17 at 22:30 Propofol (Diprivan) 100 ml @ 2.79 mls/hr Q12H IV Last administered on 05:13; Admin Dose 16.74 MLS/HR; Start 08/05/17 at 23:45 Morphine Sulfate 2 mg 2 mg Q2H PRN IV PAIN Last administered on 08/07/17 10:48 ; Admin Dose 2 MG; Start 08/05/17 at 23:45 Norepinephrine 16 mg/Dextrose 500 ml @ 1.87 mls/hr TITRATE IV Last administered on 08/06/17 02:05; Admin Dose 5.62 MLS/HR; Start 08/06/17 at 00:30 Meropenem/Sodium Chloride (Merrem 1 Gm/50 ml (Pmx)) 50 ml @ 100 mls/hr Q12 IVPB Last administered on 08/09/17 08:57; Admin Dose 100 MLS/HR; Start at 21:00 Hydralazine HCl 10 mg 10 mg Q6H PRN IV sbp>170; Start 08/07/17 at 18:00 Vancomycin HCl (Vancocin) 250 ml @ 125 mls/hr Q12H IVPB Last administered on 08/08/17 23:47; Admin Dose 125 MLS/HR; Start 08/08/17 at 12:00 Miscellaneous Information (*Rx Drug Level Order Reminder*) VANCO TROUGH @ 1, 100 ON ... ONCE ONCE XX ; Start 08/09/17 at 11:00; Stop 08/09/17 at 11:01 Famotidine (Pepcid Iv) 20 mg BID IV Last administered on 08/09/17 08:57; Admin Dose 20 MG; Start 08/09/17 at 09:00 RAE CALVO Aug 09, 2017 09:53
--- NOTE | 2017-08-09 10:13 | CONS ---
Date/Time of Note Date/Time of Note DATE: 08/09/17 TIME: 10:12 Consult Date/Type/Reason Admit Date/Time Jul 24, 2017 at 06:16 Initial Consult Date 08/05/17 Type of Consultation: Pulmonary Ordering Provider: RAE CALVO Subjective Patient comfortable no new events. Awake alert on mechanical ventilation. Status post thoracentesis 400 cc. Objective Vital Signs Date Time Temp Pulse Resp B/P Pulse Ox O2 Delivery O2 Flow Rate FiO2 08/09/17 08:30 75 21 157/74 98 Mechanical Ventilator 08/09/17 08:00 98.5 08/09/17 08:00 30 08/05/17 13:19 5.0 Intake and Output 08/08/17 08/08/17 08/09/17 15:00 23:00 07:00 Intake Total 833.92 ml 595.08 ml 917.18 ml Output Total 768 ml 960 ml 900 ml Balance 65.92 ml -364.92 ml 17.18 ml Exam PHYSICAL EXAMINATION: GENERAL: Well-nourished, well-developed lady, intubated on mechanical ventilation, appears comfortable at rest, no acute distress. VITAL SIGNS: NECK: Supple, no JVD or lymphadenopathy. CARDIAC: S1, S2, no added sounds or murmurs. CHEST: Diminished air entry bilaterally. ABDOMEN: Soft, nontender. No guarding or rebound. EXTREMITIES: No cyanosis, clubbing, 1+ edema. NEUROLOGIC: Generalized weakne Results/Medications Result Diagram: 08/09/17 0445 08/09/17 0445 Results 24 hrs Laboratory Tests Test 08/08/17 14:00 08/09/17 04:45 Pathologist Review (Hematology) YES-PATH TO CONFIRM Body Fluid Type PLEURAL FLUID Body Fluid Volume 400.0 Body Fluid Color YELLOW Body Fluid Appearance CLOUDY Body Fluid WBC 625 Body Fluid RBC (Auto) 4000 Body Fluid Polynuclear WBCs 60 Body Fluid Polynuclear WBCs (%) Body Fluid Mononuclear WBCs 19 Body Fluid Mononuclear Cells % Auto Body Fluid Other Cells Body Fluid Glucose 64 Body Fluid Total Protein < 2.0 Body Fluid Lactate Dehydrogenase 1677 White Blood Count 16.8 H Red Blood Count 4.08 L Hemoglobin 10.5 L Hematocrit 35.2 L Mean Corpuscular Volume 86.3 Mean Corpuscular Hemoglobin 25.7 L Mean Corpuscular Hemoglobin Concent 29.8 L Red Cell Distribution Width 21.6 H Platelet Count 580 #H Mean Platelet Volume 11.4 H Neutrophils % 78.8 H Lymphocytes % 9.2 L Monocytes % 4.4 Eosinophils % 0.4 Basophils % 0.1 Nucleated Red Blood Cells % 0.1 H Neutrophils # 13.3 H Lymphocytes # 1.5 Monocytes # 0.7 Eosinophils # 0.1 Basophils # 0.0 Nucleated Red Blood Cells # 0.0 Sodium Level 148 H Potassium Level 4.0 Chloride Level 114 H Carbon Dioxide Level 20 L Anion Gap 18 H Blood Urea Nitrogen 25 #H Creatinine 0.63 Glucose Level 89 Calcium Level 7.3 L Phosphorus Level 3.6 Magnesium Level 2.6 H Total Bilirubin 0.2 Direct Bilirubin 0.00 Indirect Bilirubin 0.2 Aspartate Amino Transf (AST/SGOT) 59 H Alanine Aminotransferase (ALT/SGPT) 38 Alkaline Phosphatase 108 Total Protein 5.3 L Albumin 2.4 L Globulin 2.90 Albumin/Globulin Ratio 0.82 Medications Current Medications Acetaminophen 650 mg 650 mg Q4H PRN PO pain/fever; Start 07/24/17 at 07:00; Status Future Hold Acetaminophen 100 ml @ 400 mls/hr Q6H IVPB Last administered on 08/09/17 05: 27; Admin Dose 400 MLS/HR; Start 07/26/17 at 18:00 Ondansetron HCl/ Sodium Chloride (Zofran Inj/NS) 54 ml @ 216 mls/hr Q6H PRN IV NAUSEA AND/OR VOMITING Last administered on 08/05/17 03:50; Admin Dose 216 MLS/HR; Start 07/27/17 at 13:00 Phenol (Chloraseptic Throat [place]) 2 spray Q2H PRN MT SORE THROAT Last administered on 07/29/17 18:10; Admin Dose 2 SPRAY; Start 07/29/17 at 13:00 Diphenhydramine HCl (Benadryl) 25 mg Q6H PRN IV SLEEP Last administered on 08/01 00:19; Admin Dose 25 MG; Start 07/31/17 at 13:00 Chlorpromazine 10 mg 10 mg Q6 PRN IM HICCUPS Last administered on 08/04/17 21: 21; Admin Dose 10 MG; Start 08/02/17 at 06:00 Sodium Chloride (NS) 1,000 ml @ 50 mls/hr Q20H IV Last administered on 11:47; Admin Dose 50 MLS/HR; Start 08/03/17 at 18:00 Loratadine (Claritin) 10 mg DAILY NGT Last administered on 08/04/17 09:32; Admin Dose 10 MG; Start 08/04/17 at 09:00 Hydromorphone HCl 0.5 mg 0.5 mg Q2H PRN IV PAIN Last administered on 09:25; Admin Dose 0.5 MG; Start 08/05/17 at 22:30 Propofol (Diprivan) 100 ml @ 2.79 mls/hr Q12H IV Last administered on 05:13; Admin Dose 16.74 MLS/HR; Start 08/05/17 at 23:45 Morphine Sulfate 2 mg 2 mg Q2H PRN IV PAIN Last administered on 08/07/17 10:48 ; Admin Dose 2 MG; Start 08/05/17 at 23:45 Norepinephrine 16 mg/Dextrose 500 ml @ 1.87 mls/hr TITRATE IV Last administered on 08/06/17 02:05; Admin Dose 5.62 MLS/HR; Start 08/06/17 at 00:30 Meropenem/Sodium Chloride (Merrem 1 Gm/50 ml (Pmx)) 50 ml @ 100 mls/hr Q12 IVPB Last administered on 08/09/17 08:57; Admin Dose 100 MLS/HR; Start at 21:00 Hydralazine HCl 10 mg 10 mg Q6H PRN IV sbp>170; Start 08/07/17 at 18:00 Vancomycin HCl (Vancocin) 250 ml @ 125 mls/hr Q12H IVPB Last administered on 08/08/17 23:47; Admin Dose 125 MLS/HR; Start 08/08/17 at 12:00 Miscellaneous Information (*Rx Drug Level Order Reminder*) VANCO TROUGH @ 1, 100 ON ... ONCE ONCE XX ; Start 08/09/17 at 11:00; Stop 08/09/17 at 11:01 Famotidine (Pepcid Iv) 20 mg BID IV Last administered on 08/09/17 08:57; Admin Dose 20 MG; Start 08/09/17 at 09:00 Assessment/Plan Chief Complaint/Hosp Course IMPRESSION 1. Status post exploratory laparotomy and now ileostomy. 2. Recent bowel resection for colon carcinoma. 3. History of atrial fibrillation, congestive cardiac failure. 4. Hypoxemic respiratory failure with left pleural effusion PLAN: 1. CPAP trial, x-ray shows improved left lung aeration. 2. Post-extubation incentive spirometry. 3. Continue postop surgical recommendations including nasogastric tube suction. 4. Deep venous thrombosis and gastrointestinal prophylaxis. 5. Continue antibiotics. Keep in ICU. Critical care time 40 minutes. Problems: YONATAN MAC MD, [facility] Aug 09, 2017 10:13
--- NOTE | 2017-08-09 10:15 | CONS ---
Date/Time of Note Date/Time of Note DATE: 08/09/17 TIME: 10:14 Assessment/Plan Assessment/Plan Additional Assessment/Plan Paroxysmal atrial fibrillation with rapid ventricular rates, currently sinus Low normal ejection fraction 50% Colon mass status post colon surgery July 26, 2017 and repeat August 05, 2017 Acute kidney injury Sepsis Vent dependent respiratory failure -Patient remains in sinus rhythm. If episodes of recurrent atrial fibrillation , would restart IV amiodarone. As needed antihypertensives. IV fluids and electrolyte management as per our nephrology colleagues. Vent management as per pulmonary. Consultation Date/Type/Reason Admit Date/Time Jul 24, 2017 at 06:16 Initial Consult Date 07/29/17 Type of Consultation: cv Referring Provider: RAE CALVO 24 HR Interval Summary Free Text/Dictation Patient denies any chest pain, shortness of breath Exam/Review of Systems Vital Signs Vitals Vital Signs Date Time Temp Pulse Resp B/P Pulse Ox O2 Delivery O2 Flow Rate FiO2 08/09/17 08:30 75 21 157/74 98 Mechanical Ventilator 08/09/17 08:00 98.5 08/09/17 08:00 30 08/05/17 13:19 5.0 Intake and Output 08/08/17 08/08/17 08/09/17 15:00 23:00 07:00 Intake Total 833.92 ml 595.08 ml 917.18 ml Output Total 768 ml 960 ml 900 ml Balance 65.92 ml -364.92 ml 17.18 ml Exam Following commands, intubated, no apparent distress Constitutional: alert Head: normocephalic Respiratory: other (Coarse breath sounds bilaterally, no wheezing) Cardiovascular: other (S1-S2 heard), regular rate and rhythm Gastrointestinal: bowel sounds, other (Bandages and drains present), soft Extremities: edema Results Result Diagram: 08/09/17 0445 08/09/17 0445 Results 24 hrs Laboratory Tests Test 08/08/17 14:00 08/09/17 04:45 Pathologist Review (Hematology) YES-PATH TO CONFIRM Body Fluid Type PLEURAL FLUID Body Fluid Volume 400.0 Body Fluid Color YELLOW Body Fluid Appearance CLOUDY Body Fluid WBC 625 Body Fluid RBC (Auto) 4000 Body Fluid Polynuclear WBCs 60 Body Fluid Polynuclear WBCs (%) Body Fluid Mononuclear WBCs 19 Body Fluid Mononuclear Cells % Auto Body Fluid Other Cells Body Fluid Glucose 64 Body Fluid Total Protein < 2.0 Body Fluid Lactate Dehydrogenase 1677 White Blood Count 16.8 H Red Blood Count 4.08 L Hemoglobin 10.5 L Hematocrit 35.2 L Mean Corpuscular Volume 86.3 Mean Corpuscular Hemoglobin 25.7 L Mean Corpuscular Hemoglobin Concent 29.8 L Red Cell Distribution Width 21.6 H Platelet Count 580 #H Mean Platelet Volume 11.4 H Neutrophils % 78.8 H Lymphocytes % 9.2 L Monocytes % 4.4 Eosinophils % 0.4 Basophils % 0.1 Nucleated Red Blood Cells % 0.1 H Neutrophils # 13.3 H Lymphocytes # 1.5 Monocytes # 0.7 Eosinophils # 0.1 Basophils # 0.0 Nucleated Red Blood Cells # 0.0 Sodium Level 148 H Potassium Level 4.0 Chloride Level 114 H Carbon Dioxide Level 20 L Anion Gap 18 H Blood Urea Nitrogen 25 #H Creatinine 0.63 Glucose Level 89 Calcium Level 7.3 L Phosphorus Level 3.6 Magnesium Level 2.6 H Total Bilirubin 0.2 Direct Bilirubin 0.00 Indirect Bilirubin 0.2 Aspartate Amino Transf (AST/SGOT) 59 H Alanine Aminotransferase (ALT/SGPT) 38 Alkaline Phosphatase 108 Total Protein 5.3 L Albumin 2.4 L Globulin 2.90 Albumin/Globulin Ratio 0.82 Medications Medications Current Medications Acetaminophen 650 mg 650 mg Q4H PRN PO pain/fever; Start 07/24/17 at 07:00; Status Future Hold Acetaminophen 100 ml @ 400 mls/hr Q6H IVPB Last administered on 08/09/17 05: 27; Admin Dose 400 MLS/HR; Start 07/26/17 at 18:00 Ondansetron HCl/ Sodium Chloride (Zofran Inj/NS) 54 ml @ 216 mls/hr Q6H PRN IV NAUSEA AND/OR VOMITING Last administered on 08/05/17 03:50; Admin Dose 216 MLS/HR; Start 07/27/17 at 13:00 Phenol (Chloraseptic Throat [place]) 2 spray Q2H PRN MT SORE THROAT Last administered on 07/29/17 18:10; Admin Dose 2 SPRAY; Start 07/29/17 at 13:00 Diphenhydramine HCl (Benadryl) 25 mg Q6H PRN IV SLEEP Last administered on 08/01 00:19; Admin Dose 25 MG; Start 07/31/17 at 13:00 Chlorpromazine 10 mg 10 mg Q6 PRN IM HICCUPS Last administered on 08/04/17 21: 21; Admin Dose 10 MG; Start 08/02/17 at 06:00 Sodium Chloride (NS) 1,000 ml @ 50 mls/hr Q20H IV Last administered on 11:47; Admin Dose 50 MLS/HR; Start 08/03/17 at 18:00 Loratadine (Claritin) 10 mg DAILY NGT Last administered on 08/04/17 09:32; Admin Dose 10 MG; Start 08/04/17 at 09:00 Hydromorphone HCl 0.5 mg 0.5 mg Q2H PRN IV PAIN Last administered on 09:25; Admin Dose 0.5 MG; Start 08/05/17 at 22:30 Propofol (Diprivan) 100 ml @ 2.79 mls/hr Q12H IV Last administered on 05:13; Admin Dose 16.74 MLS/HR; Start 08/05/17 at 23:45 Morphine Sulfate 2 mg 2 mg Q2H PRN IV PAIN Last administered on 08/07/17 10:48 ; Admin Dose 2 MG; Start 08/05/17 at 23:45 Norepinephrine 16 mg/Dextrose 500 ml @ 1.87 mls/hr TITRATE IV Last administered on 08/06/17 02:05; Admin Dose 5.62 MLS/HR; Start 08/06/17 at 00:30 Meropenem/Sodium Chloride (Merrem 1 Gm/50 ml (Pmx)) 50 ml @ 100 mls/hr Q12 IVPB Last administered on 08/09/17 08:57; Admin Dose 100 MLS/HR; Start at 21:00 Hydralazine HCl 10 mg 10 mg Q6H PRN IV sbp>170; Start 08/07/17 at 18:00 Vancomycin HCl (Vancocin) 250 ml @ 125 mls/hr Q12H IVPB Last administered on 08/08/17 23:47; Admin Dose 125 MLS/HR; Start 08/08/17 at 12:00 Miscellaneous Information (*Rx Drug Level Order Reminder*) VANCO TROUGH @ 1, 100 ON ... ONCE ONCE XX ; Start 08/09/17 at 11:00; Stop 08/09/17 at 11:01 Famotidine (Pepcid Iv) 20 mg BID IV Last administered on 08/09/17t 08:57; Admin Dose 20 MG; Start 08/09/17 at 09:00 Fercho Mojica DO Aug 09, 2017 10:15
[2017-08-09] MEDS: SOD CHLORIDE 0.9% 1,000 ML IV SCH (11:00)
[2017-08-09 12:09] LABS: AADO2 Arterial 83.5 mmHg (7.0-24.0); Arterial Base Excess -5.9 mmol/L (-3.0-3); Arterial COHb 0.3 % (0.0-3.0); Arterial Fraction of Oxyhgb 96.5 % (93.0-99.0); Arterial HCO3 18.4 mmol/L (22.0-26.0); Arterial MetHb 0.1 % (0.0-1.5); Arterial Total Hemglobin 11.1 g/dl (12.0-18.0); Blood Gas PS 10; MODE VENT - CPAP
[2017-08-09] MEDS: VANCOMYCIN 1 GM in NS 250 ML IVPB SCH (13:33)
[2017-08-09] MEDS: LEVALBUTEROL (NEB) 0.63 MG/3 ML AMP HHN PRN (14:19)
--- NOTE | 2017-08-09 15:49 | PN ---
DATE: 08/09/2017 SUBJECTIVE: No acute changes. The patient is on CPAP. Looks comfortable. No fevers. VITAL SIGNS: Temperature 98.5, pulse 76, respirations 20, blood pressure 152/82, saturation 96% on 30 FiO2. LABORATORY: WBC 16.8, H and H 10.5 and 35.2, platelets 580, neutrophils 78.8. BUN 25, creatinine 0 .63. MICROBIOLOGY: Abdominal drainage culture grew Enterococcus species, Staph aureus and E. coli. INDWELLINGS: Endotracheal tube, NG tube, right IJ triple-lumen catheter, Leal, JPs, colostomy. ANTIMICROBIALS: The patient is on: 1. Vancomycin. 2. Merrem. PHYSICAL EXAMINATION: GENERAL: A well-developed, well-nourished, 51-year-old woman who is in no distress. HEENT: Head atraumatic, normocephalic. Sclerae anicteric. Buccal mucosa dry. NECK: Supple. Trachea midline. CHEST: Rise symmetrical. Breath sounds diminished to bases. HEART: S1, S2. ABDOMEN: Soft. Bowel tones hypoactive. EXTREMITIES: Without cyanosis. Bilateral trace edema. ASSESSMENT: 1. Sepsis, status post shock. 2. Colon cancer, status post resection with primary anastomosis, complicated by anastomotic leak, s tatus post exploratory laparotomy, drainage of abscesses, placement of drain, partial colectomy and colostomy on 08/05/2017. 3. Postoperative respiratory failure. 4. Left pleural effusion, status post thoracentesis. 5. Anemia. 6. Paroxysmal atrial fibrillation. PLAN: The patient remains stable. SHE IS ALLERGIC TO PENICILLIN, SULFA AND AMOXICILLIN. She is on appropriate antibiotics pending final cultures and sensitivities. Follow recommendations of viraj petty. Dictated By: YG TARANGO FERRYBOAT CAPTAIN for LUIS FERNANDO SURESH MD NI/NTS Conf#: [id number] DID#: [id number] CC: CECILIA LEON MD;*EndCC*
--- NOTE | 2017-08-09 17:14 | CONS ---
Date/Time of Note Date/Time of Note DATE: 08/09/17 TIME: 17:11 Assessment/Plan Assessment/Plan Additional Assessment/Plan 1. Oliguric EJ due to ATN from Shock- Multifactorial septic from peritonitis + Hemorrhagic- Improving, making good urine 2. Acute hyperkalemia due to EJ- Resolved 3. Metabolic acidosis with lactic acidosis- Improved much better, 4. acute resp failure, possible Asp PNA vs HCAP - pt remained on ventilator post operatively ,s/p US throacentesis 400 cc removed from left chest 5. Septic shock requiring pressors, now off levophed 6. Status post Left hemicolectomy for sigmoid adenocarcinoma/mass POD#7, s/p total of 4 units pRBC since admission. - again pt underwent Exploratory laparotomy with intra-abdominal abscess drainage, Placement of percutaneous Maurisio drains #19 x2., Partial colectomy.Formation of end colostomy with Corona 's pouch. on 08/05/17 7. Atrial fibrillation 8. Chronic diastolic heart failure with EF 55% 9. Hypocalcemia with hypoalbuminemia 10. Hypernatremia Plan: pt remains intubated, s/p Thoracentesis 400 cc drained, Bp stable, Na trending up. made Urine output 1.7 L without lasix Renal US negative for acute findings consider TPN For nutrition purporse, we will d/c IVF when pt will be on TPN will continue to follow up along with other subspecialist Consultation Date/Type/Reason Admit Date/Time Jul 24, 2017 at 06:16 Initial Consult Date 08/05/17 Type of Consultation: NEPHROLOGY Referring Provider: RAE CALVO 24 HR Interval Summary Free Text/Dictation made good urineoput, Remains on vent, S/p US throacentesis left 400 cc drained Exam/Review of Systems Vital Signs Vitals Vital Signs Date Time Temp Pulse Resp B/P Pulse Ox O2 Delivery O2 Flow Rate FiO2 08/09/17 16:00 105 08/09/17 11:55 20 98 08/09/17 08:30 157/74 Mechanical Ventilator 08/09/17 08:00 98.5 08/09/17 08:00 30 08/05/17 13:19 5.0 Intake and Output 08/08/17 08/08/17 08/09/17 15:00 23:00 07:00 Intake Total 833.92 ml 595.08 ml 917.18 ml Output Total 768 ml 960 ml 900 ml Balance 65.92 ml -364.92 ml 17.18 ml Exam Constitutional: non-verbal, other (Intubaed sedated on ventilator ) Respiratory: crackles/rales, diminished breath sounds, other (Bilateral corase BS+) Cardiovascular: other (Tachycardia ) Gastrointestinal: distended, tender Musculoskeletal: muscle weakness, swelling Extremities: normal pulses, + valladares catheter Neurological: other (sedated on ventilator, uncooperative for exam ) Lymph: nl lymph nodes Results Result Diagram: 08/09/17 0445 08/09/17 0445 Results 24 hrs Laboratory Tests Test 08/09/17 04:45 08/09/17 10:55 08/09/17 11:40 White Blood Count 16.8 H Red Blood Count 4.08 L Hemoglobin 10.5 L Hematocrit 35.2 L Mean Corpuscular Volume 86.3 Mean Corpuscular Hemoglobin 25.7 L Mean Corpuscular Hemoglobin Concent 29.8 L Red Cell Distribution Width 21.6 H Platelet Count 580 #H Mean Platelet Volume 11.4 H Neutrophils % 78.8 H Lymphocytes % 9.2 L Monocytes % 4.4 Eosinophils % 0.4 Basophils % 0.1 Nucleated Red Blood Cells % 0.1 H Neutrophils # 13.3 H Lymphocytes # 1.5 Monocytes # 0.7 Eosinophils # 0.1 Basophils # 0.0 Nucleated Red Blood Cells # 0.0 Sodium Level 148 H Potassium Level 4.0 Chloride Level 114 H Carbon Dioxide Level 20 L Anion Gap 18 H Blood Urea Nitrogen 25 #H Creatinine 0.63 Glucose Level 89 Calcium Level 7.3 L Phosphorus Level 3.6 Magnesium Level 2.6 H Total Bilirubin 0.2 Direct Bilirubin 0.00 Indirect Bilirubin 0.2 Aspartate Amino Transf (AST/SGOT) 59 H Alanine Aminotransferase (ALT/SGPT) 38 Alkaline Phosphatase 108 Total Protein 5.3 L Albumin 2.4 L Globulin 2.90 Albumin/Globulin Ratio 0.82 Vancomycin Level Trough 10.4 Blood Gas Specimen Source Blood arterial Arterial Blood Date Drawn 08/09/2017 11:40:41 AM Arterial Blood pH (Temp corrected) 7.376 Arterial Blood pCO2 (Temp correct) 32.1 L Arterial Blood pO2 (Temp corrected) 92.7 Arterial Blood HCO3 18.4 L Arterial Blood Base Excess -5.9 L Arterial Blood Oxygen Saturation 96.9 Brian Test N/A Arterial Blood Gas Puncture Site A-Line Arterial Blood Carboxyhemoglobin 0.3 Arterial Blood Methemoglobin 0.1 Blood Gas A-a O2 Differential 83.5 H Oxyhemoglobin Percent 96.5 Total Hemoglobin 11.1 L Blood Gas Temperature 37.0 Blood Gas Actual Respiration Rate 22 Blood Gas Modality VENT - CPAP FiO2 30.0 Blood Gas Low PEEP Setting 5.0 Blood Gas Pressure Support 10 Blood Gas Notified Whom JLD Blood Gas Notified Time 08/09/2017 12:09:42 PM Medications Medications Current Medications Acetaminophen 650 mg 650 mg Q4H PRN PO pain/fever; Start 07/24/17 at 07:00; Status Future Hold Acetaminophen 100 ml @ 400 mls/hr Q6H IVPB Last administered on 08/09/17 11: 19; Admin Dose 400 MLS/HR; Start 07/26/17 at 18:00 Ondansetron HCl/ Sodium Chloride (Zofran Inj/NS) 54 ml @ 216 mls/hr Q6H PRN IV NAUSEA AND/OR VOMITING Last administered on 08/05/17 03:50; Admin Dose 216 MLS/HR; Start 07/27/17 at 13:00 Phenol (Chloraseptic Throat [place]) 2 spray Q2H PRN MT SORE THROAT Last administered on 07/29/17 18:10; Admin Dose 2 SPRAY; Start 07/29/17 at 13:00 Diphenhydramine HCl (Benadryl) 25 mg Q6H PRN IV SLEEP Last administered on 08/01 00:19; Admin Dose 25 MG; Start 07/31/17 at 13:00 Chlorpromazine 10 mg 10 mg Q6 PRN IM HICCUPS Last administered on 08/04/17 21: 21; Admin Dose 10 MG; Start 08/02/17 at 06:00 Sodium Chloride (NS) 1,000 ml @ 50 mls/hr Q20H IV Last administered on 11:00; Admin Dose 50 MLS/HR; Start 08/03/17 at 18:00 Loratadine (Claritin) 10 mg DAILY NGT Last administered on 08/04/17 09:32; Admin Dose 10 MG; Start 08/04/17 at 09:00 Hydromorphone HCl 0.5 mg 0.5 mg Q2H PRN IV PAIN Last administered on 14:55; Admin Dose 0.5 MG; Start 08/05/17 at 22:30 Propofol (Diprivan) 100 ml @ 2.79 mls/hr Q12H IV Last administered on 05:13; Admin Dose 16.74 MLS/HR; Start 08/05/17 at 23:45 Morphine Sulfate 2 mg 2 mg Q2H PRN IV PAIN Last administered on 08/07/17 10:48 ; Admin Dose 2 MG; Start 08/05/17 at 23:45 Norepinephrine 16 mg/Dextrose 500 ml @ 1.87 mls/hr TITRATE IV Last administered on 08/06/17 02:05; Admin Dose 5.62 MLS/HR; Start 08/06/17 at 00:30 Meropenem/Sodium Chloride (Merrem 1 Gm/50 ml (Pmx)) 50 ml @ 100 mls/hr Q12 IVPB Last administered on 08/09/17 08:57; Admin Dose 100 MLS/HR; Start at 21:00 Hydralazine HCl 10 mg 10 mg Q6H PRN IV sbp>170 Last administered on 08/09/17 14:18; Admin Dose 10 MG; Start 08/07/17 at 18:00 Vancomycin HCl (Vancocin) 250 ml @ 125 mls/hr Q12H IVPB Last administered on 08/09/17 13:33; Admin Dose 125 MLS/HR; Start 08/08/17 at 12:00 Famotidine (Pepcid Iv) 20 mg BID IV Last administered on 08/09/17 08:57; Admin Dose 20 MG; Start 08/09/17 at 09:00 MEKA ROBERTSON MD Aug 09, 2017 17:14
[2017-08-09] MEDS ORDERED: D5W-0.45 NACL + KCL 20 MEQ 1,000 ML IV SCH (22:00)
[2017-08-10] VITALS (21 sets, daily range): BP systolic 138–170; BP diastolic 72–92; PULSE 76–100; RESP 17–28
[2017-08-10] MEDS: ACETAMINOPHEN 1000MG/100ML IV 100 ML IVPB SCH ×2 (00:45→05:56)
[2017-08-10] MEDS: VANCOMYCIN 1 GM in NS 250 ML IVPB SCH ×2 (00:45→15:03)
[2017-08-10] MEDS: HYDROmorphONE 0.5 MG/0.5 ML SYG IV PRN ×8 (01:11→22:58)
[2017-08-10 06:45] LABS: HEMATOCRIT 32.6 % (37.0-47.0); MEAN CORPUSCULAR HGB CONC 30.7 g/dl (32.0-37.0); MEAN CORPUSCULAR VOLUME 84.7 fl (82.0-101.0); PLATELET COUNT 659 10^3/UL (140-415); RED BLOOD COUNT 3.85 10^6/ul (4.20-5.40); RED CELL DISTRIBUTION WIDTH 21.5 % (11.5-14.5); WHITE BLOOD COUNT 10.7 10^3/ul (4.8-10.8)
[2017-08-10 06:57] LABS: POSITIVE DIFF @See below
[2017-08-10 07:28] LABS: ALBUMIN 2.2 g/dl (3.3-4.9); ALBUMIN/GLOBULIN RATIO 0.75; BILIRUBIN,INDIRECT 0.2 mg/dl (0-1.1); BILIRUBIN,TOTAL 0.2 mg/dl (0.2-1.3); CALCIUM 7.2 mg/dl (8.4-10.2); CREATININE 0.55 mg/dl (0.44-1.00); POTASSIUM 3.9 mmol/L (3.5-5.1); TOTAL PROTEIN 5.1 g/dl (6.1-8.1)
[2017-08-10 07:34] LABS: MAGNESIUM 2.4 mg/dl (1.7-2.5); PHOSPHORUS 2.9 mg/dl (2.5-4.9)
[2017-08-10 07:47] LABS: ANISOCYTOSIS 1+ (0-0); EOSINOPHILS % (M) 2 % (0-7); GIANT THROMBO% (M) 1 % (0-0); HYPOCHROMASIA 1+ (0-0); MICROCYTOSIS 1+ (0-0); MONOCYTES % (M) 7 % (0-11); MYELOCYTES % (M) 1 % (0-0); PLATELET ESTIMATE INCREASED; POLYCHROMASIA 3+ (0-0); REACTIVE LYMPHOCYTES% (M) 1 % (0-0)
[2017-08-10] MEDS: MEROPENEM 1 GM/50ML(PMX) 50 ML IVPB SCH ×2 (08:45→20:58)
[2017-08-10] MEDS: FAMOTIDINE 20 MG INJ IV SCH ×2 (08:45→20:45)
[2017-08-10] MEDS: LORATADINE 10 MG TAB NGT SCH (09:00)
--- NOTE | 2017-08-10 10:36 | PN ---
Date/Time of Note Date/Time of Note DATE: 08/10/17 TIME: 10:30 Assessment/Plan VTE Prophylaxis VTE Prophylaxis Intervention: SCD's Lines/Catheters IV Catheter Type (from Nrs): Peripheral IV Central line still needed: Yes Urinary Cath still in place: Yes Reason Cath still needed: skin wounds contaminated by urine Assessment/Plan Assessment/Plan 51 year old female with: 1. Postop anastomotic leak with sepsis, status post ex lap with drainage of abscesses, drain placement, partial colectomy and colostomy POD#5 Status post Left hemicolectomy for sigmoid adenocarcinoma/mass POD#13 Intraoperative/intraperitoneal cultures positive for E. coli, enterococcus, staph aureus. We will discuss with infectious disease antibiotic adjustment, currently patient on vancomycin and meropenem, and known to have multiple allergies including penicillin allergy. Patient otherwise fairly stable postoperatively. No pressors and extubated. Per Dr. Aldana, patient to initiate diet today as she passed the swallow evaluation. Case d/w with RN and will defer to Dr. Aldana if okay to start clears and advanced as tolerated or other diet. She has passed her swallow evaluation and okay to take mechanical soft diet. 2. Acute respiratory failure: resolved and extubated. She is currently on room air. Status post left thoracentesis yesterday with removal of 400 cc pleural fluid. Chest x-ray today with improved pulmonary edema. Appreciate recommendations from nephrology and pulmonary. 3. Atrial fibrillation, chronic, currently remains in sinus rhythm in the 80s. Off amiodarone drip and digoxin. Appreciate cardiology recommendations. Anticoagulation discontinued, discussed with cardiology for now will just leave her off anticoagulation for the remainder of her postoperative course. Electrolyte repletion as needed. 4. Chronic congestive heart failure, chronic diastolic dysfunction and ejection fraction of 55% on latest outpatient echocardiogram in January 2017 and confirmed to be 50% on this admission. Currently in volume overload, left thoracentesis today further diuretics as needed. Monitor volume status. 5. Acute kidney injury, in setting of sepsis, also had the contrast studies 2. Resolved, renal function back to normal. Leal catheter in place. Adequate urine output, will plan on discontinuing IV fluids yesterday. Had 1650 cc output in 24 hours. Follow-up recommendations from nephrology, Dr. Kiser 6. Anemia, acute on chronic, postop: s/p 2 units of packed red blood cells, Hb up to 9.5 7. Hypertension: Will resume lisinopril as SBP around 160 Prophylaxis: Off anticoagulation, SCDs, Pepcid for GI prophylaxis. Disposition: Patient currently extubated and will transfer to the floor later today if okay with Dr. Aldana. Case d/w Dr. Christie. Continue IV antibiotics. Follow up further recommendation from infectious disease, nephrology. Subjective 24 Hr Interval Summary Free Text/Dictation Doing well. Extubated and siting up in bed; conversant and no pain. She passed the swallow evaluation to start a mechanical soft diet. Constitutional: no complaints Exam/Review of Systems Vital Signs Vitals Vital Signs Date Time Temp Pulse Resp B/P Pulse Ox O2 Delivery O2 Flow Rate FiO2 08/10/17 09:00 80 18 149/79 97 Nasal Cannula 2.0 08/10/17 08:00 98.4 08/09/17 12:00 30 Intake and Output 08/09/17 08/09/17 08/10/17 15:00 23:00 07:00 Intake Total 808 ml 525 ml 1050 ml Output Total 560 ml 710 ml 590 ml Balance 248 ml -185 ml 460 ml Exam Constitutional: alert, oriented Psych: no complaints Head: normocephalic Eyes: nl conjunctiva ENMT: mucosa pink and moist Neck: supple Respiratory: clear to auscultation Cardiovascular: regular rate and rhythm Gastrointestinal: soft Extremities: normal pulses Results Result Diagram: 08/10/17 0530 08/10/17 0530 Results 24 hrs Laboratory Tests Test 08/09/17 10:55 08/09/17 11:40 08/10/17 05:30 Vancomycin Level Trough 10.4 Blood Gas Specimen Source Blood arterial Arterial Blood Date Drawn 08/09/2017 11:40:41 AM Arterial Blood pH (Temp corrected) 7.376 Arterial Blood pCO2 (Temp correct) 32.1 L Arterial Blood pO2 (Temp corrected) 92.7 Arterial Blood HCO3 18.4 L Arterial Blood Base Excess -5.9 L Arterial Blood Oxygen Saturation 96.9 Brian Test N/A Arterial Blood Gas Puncture Site A-Line Arterial Blood Carboxyhemoglobin 0.3 Arterial Blood Methemoglobin 0.1 Blood Gas A-a O2 Differential 83.5 H Oxyhemoglobin Percent 96.5 Total Hemoglobin 11.1 L Blood Gas Temperature 37.0 Blood Gas Actual Respiration Rate 22 Blood Gas Modality VENT - CPAP FiO2 30.0 Blood Gas Low PEEP Setting 5.0 Blood Gas Pressure Support 10 Blood Gas Notified Whom JLD Blood Gas Notified Time 08/09/2017 12:09:42 PM White Blood Count 10.7 # Red Blood Count 3.85 L Hemoglobin 10.0 L Hematocrit 32.6 L Mean Corpuscular Volume 84.7 Mean Corpuscular Hemoglobin 26.0 L Mean Corpuscular Hemoglobin Concent 30.7 L Red Cell Distribution Width 21.5 H Platelet Count 659 H Mean Platelet Volume 11.0 H Neutrophils % Segmented Neutrophils % (Manual) 59 Band Neutrophils % (Manual) 21 H Lymphocytes % Lymphocytes % (Manual) 9 L Reactive Lymphocytes % (Manual) 1 H Monocytes % Monocytes % (Manual) 7 Eosinophils % Eosinophils % (Manual) 2 Basophils % Myelocytes % (Manual) 1 H Nucleated Red Blood Cells % 0.0 Neutrophils # Neutrophils # (Manual) 6.5 Band Neutrophils # 2.2 H Absolute Lymphocytes (Manual) 0.9 Lymphocytes # Reactive Lymphocytes # 0.1 H Monocytes # Absolute Monocytes (Manual) 0.7 Eosinophils # Basophils # Myelocytes # 0.1 H Nucleated Red Blood Cells # Platelet Estimate INCREASED Giant Platelets 1 H Polychromasia 3+ Hypochromasia 1+ Anisocytosis 1+ Microcytosis 1+ Sodium Level 150 H Potassium Level 3.9 Chloride Level 114 H Carbon Dioxide Level 24 Anion Gap 16 Blood Urea Nitrogen 16 # Creatinine 0.55 Glucose Level 118 Calcium Level 7.2 L Phosphorus Level 2.9 Magnesium Level 2.4 Total Bilirubin 0.2 Direct Bilirubin 0.00 Indirect Bilirubin 0.2 Aspartate Amino Transf (AST/SGOT) 43 Alanine Aminotransferase (ALT/SGPT) 37 Alkaline Phosphatase 90 Total Protein 5.1 L Albumin 2.2 L Globulin 2.90 Albumin/Globulin Ratio 0.75 Medications Medications Current Medications Acetaminophen 650 mg 650 mg Q4H PRN PO pain/fever; Start 07/24/17 at 07:00; Status Future Hold Ondansetron HCl/ Sodium Chloride (Zofran Inj/NS) 54 ml @ 216 mls/hr Q6H PRN IV NAUSEA AND/OR VOMITING Last administered on 08/05/17t 03:50; Admin Dose 216 MLS/HR; Start 07/27/17 at 13:00 Phenol (Chloraseptic Throat [place]) 2 spray Q2H PRN MT SORE THROAT Last administered on 07/29/17 18:10; Admin Dose 2 SPRAY; Start 07/29/17 at 13:00 Diphenhydramine HCl (Benadryl) 25 mg Q6H PRN IV SLEEP Last administered on 08/01 00:19; Admin Dose 25 MG; Start 07/31/17 at 13:00 Chlorpromazine (Thorazine) 10 mg Q6 PRN IM HICCUPS Last administered on 21:21; Admin Dose 10 MG; Start 08/02/17 at 06:00 Loratadine (Claritin) 10 mg DAILY NGT Last administered on 08/04/17 09:32; Admin Dose 10 MG; Start 08/04/17 at 09:00 Hydromorphone HCl (Dilaudid) 0.5 mg Q2H PRN IV PAIN Last administered on 08:45; Admin Dose 0.5 MG; Start 08/05/17 at 22:30 Morphine Sulfate 2 mg 2 mg Q2H PRN IV PAIN Last administered on 08/07/17 10:48 ; Admin Dose 2 MG; Start 08/05/17 at 23:45 Norepinephrine 16 mg/Dextrose 500 ml @ 1.87 mls/hr TITRATE IV Last administered on 08/06/17 02:05; Admin Dose 5.62 MLS/HR; Start 08/06/17 at 00:30 Meropenem/Sodium Chloride (Merrem 1 Gm/50 ml (Pmx)) 50 ml @ 100 mls/hr Q12 IVPB Last administered on 08/10/17 08:45; Admin Dose 100 MLS/HR; Start at 21:00 Hydralazine HCl 10 mg 10 mg Q6H PRN IV sbp>170 Last administered on 08/09/17 14:18; Admin Dose 10 MG; Start 08/07/17 at 18:00 Vancomycin HCl (Vancocin) 250 ml @ 125 mls/hr Q12H IVPB Last administered on 08/10/17 00:45; Admin Dose 125 MLS/HR; Start 08/08/17 at 12:00 Famotidine 20 mg 20 mg BID IV Last administered on 08/10/17 08:45; Admin Dose 20 MG; Start 08/09/17 at 09:00 Potassium Chloride/Dextrose/ Sod Cl (D5-1/2ns + KCl 20 Meq) 1,000 ml @ 75 mls/ hr [id number] IV Last administered on 08/09/17t 22:42; Admin Dose 75 MLS/HR; Start 08/09/17 at 22:00 Lisinopril (Zestril) 20 mg DAILY PO ; Start 08/10/17 at 10:30 Acetaminophen (Tylenol Tab) 650 mg Q4H PRN PO PAIN AND OR ELEVATED TEMP; Start 08/10/17 at 10:30 GUZMAN LUGO MD Aug 10, 2017 10:36
[2017-08-10] MEDS: LISINOPRIL 20 MG TAB PO SCH (11:30)
--- NOTE | 2017-08-10 11:30 | CONS ---
Date/Time of Note Date/Time of Note DATE: 08/10/17 TIME: 11:14 Consult Date/Type/Reason Admit Date/Time Jul 24, 2017 at 06:16 Initial Consult Date 08/05/17 Type of Consultation: Pulmonary Ordering Provider: RAE CALVO Subjective Patient extubated yesterday. Awake alert and oriented this morning. States she feels much better. Objective Vital Signs Date Time Temp Pulse Resp B/P Pulse Ox O2 Delivery O2 Flow Rate FiO2 08/10/17 09:00 80 18 149/79 97 Nasal Cannula 2.0 08/10/17 08:00 98.4 08/09/17 12:00 30 Intake and Output 08/09/17 08/09/17 08/10/17 15:00 23:00 07:00 Intake Total 808 ml 525 ml 1050 ml Output Total 560 ml 710 ml 590 ml Balance 248 ml -185 ml 460 ml Exam PHYSICAL EXAMINATION: GENERAL: Well-nourished, well-developed lady, nasal cannula oxygen. VITAL SIGNS: NECK: Supple, no JVD or lymphadenopathy. CARDIAC: S1, S2, no added sounds or murmurs. CHEST: Diminished air entry bilaterally. ABDOMEN: Soft, nontender. No guarding or rebound. EXTREMITIES: No cyanosis, clubbing, 1+ edema. NEUROLOGIC: Generalized weakness Results/Medications Result Diagram: 08/10/17 0530 08/10/17 0530 Results 24 hrs Laboratory Tests Test 08/09/17 11:40 08/10/17 05:30 Blood Gas Specimen Source Blood arterial Arterial Blood Date Drawn 08/09/2017 11:40:41 AM Arterial Blood pH (Temp corrected) 7.376 Arterial Blood pCO2 (Temp correct) 32.1 L Arterial Blood pO2 (Temp corrected) 92.7 Arterial Blood HCO3 18.4 L Arterial Blood Base Excess -5.9 L Arterial Blood Oxygen Saturation 96.9 Brian Test N/A Arterial Blood Gas Puncture Site A-Line Arterial Blood Carboxyhemoglobin 0.3 Arterial Blood Methemoglobin 0.1 Blood Gas A-a O2 Differential 83.5 H Oxyhemoglobin Percent 96.5 Total Hemoglobin 11.1 L Blood Gas Temperature 37.0 Blood Gas Actual Respiration Rate 22 Blood Gas Modality VENT - CPAP FiO2 30.0 Blood Gas Low PEEP Setting 5.0 Blood Gas Pressure Support 10 Blood Gas Notified Whom JLD Blood Gas Notified Time 08/09/2017 12:09:42 PM White Blood Count 10.7 # Red Blood Count 3.85 L Hemoglobin 10.0 L Hematocrit 32.6 L Mean Corpuscular Volume 84.7 Mean Corpuscular Hemoglobin 26.0 L Mean Corpuscular Hemoglobin Concent 30.7 L Red Cell Distribution Width 21.5 H Platelet Count 659 H Mean Platelet Volume 11.0 H Neutrophils % Segmented Neutrophils % (Manual) 59 Band Neutrophils % (Manual) 21 H Lymphocytes % Lymphocytes % (Manual) 9 L Reactive Lymphocytes % (Manual) 1 H Monocytes % Monocytes % (Manual) 7 Eosinophils % Eosinophils % (Manual) 2 Basophils % Myelocytes % (Manual) 1 H Nucleated Red Blood Cells % 0.0 Neutrophils # Neutrophils # (Manual) 6.5 Band Neutrophils # 2.2 H Absolute Lymphocytes (Manual) 0.9 Lymphocytes # Reactive Lymphocytes # 0.1 H Monocytes # Absolute Monocytes (Manual) 0.7 Eosinophils # Basophils # Myelocytes # 0.1 H Nucleated Red Blood Cells # Platelet Estimate INCREASED Giant Platelets 1 H Polychromasia 3+ Hypochromasia 1+ Anisocytosis 1+ Microcytosis 1+ Sodium Level 150 H Potassium Level 3.9 Chloride Level 114 H Carbon Dioxide Level 24 Anion Gap 16 Blood Urea Nitrogen 16 # Creatinine 0.55 Glucose Level 118 Calcium Level 7.2 L Phosphorus Level 2.9 Magnesium Level 2.4 Total Bilirubin 0.2 Direct Bilirubin 0.00 Indirect Bilirubin 0.2 Aspartate Amino Transf (AST/SGOT) 43 Alanine Aminotransferase (ALT/SGPT) 37 Alkaline Phosphatase 90 Total Protein 5.1 L Albumin 2.2 L Globulin 2.90 Albumin/Globulin Ratio 0.75 Medications Current Medications Acetaminophen 650 mg 650 mg Q4H PRN PO pain/fever; Start 07/24/17 at 07:00; Status Future Hold Ondansetron HCl/ Sodium Chloride (Zofran Inj/NS) 54 ml @ 216 mls/hr Q6H PRN IV NAUSEA AND/OR VOMITING Last administered on 08/05/17 03:50; Admin Dose 216 MLS/HR; Start 07/27/17 at 13:00 Phenol (Chloraseptic Throat [place]) 2 spray Q2H PRN MT SORE THROAT Last administered on 07/29/17 18:10; Admin Dose 2 SPRAY; Start 07/29/17 at 13:00 Diphenhydramine HCl (Benadryl) 25 mg Q6H PRN IV SLEEP Last administered on 08/01 00:19; Admin Dose 25 MG; Start 07/31/17 at 13:00 Chlorpromazine (Thorazine) 10 mg Q6 PRN IM HICCUPS Last administered on 21:21; Admin Dose 10 MG; Start 08/02/17 at 06:00 Loratadine (Claritin) 10 mg DAILY NGT Last administered on 08/04/17 09:32; Admin Dose 10 MG; Start 08/04/17 at 09:00 Hydromorphone HCl 0.5 mg 0.5 mg Q2H PRN IV PAIN Last administered on 08:45; Admin Dose 0.5 MG; Start 08/05/17 at 22:30 Meropenem/Sodium Chloride (Merrem 1 Gm/50 ml (Pmx)) 50 ml @ 100 mls/hr Q12 IVPB Last administered on 08/10/17 08:45; Admin Dose 100 MLS/HR; Start at 21:00 Hydralazine HCl 10 mg 10 mg Q6H PRN IV sbp>170 Last administered on 08/09/17 14:18; Admin Dose 10 MG; Start 08/07/17 at 18:00 Vancomycin HCl (Vancocin) 250 ml @ 125 mls/hr Q12H IVPB Last administered on 08/10/17 00:45; Admin Dose 125 MLS/HR; Start 08/08/17 at 12:00 Famotidine 20 mg 20 mg BID IV Last administered on 08/10/17 08:45; Admin Dose 20 MG; Start 08/09/17 at 09:00 Potassium Chloride/Dextrose/ Sod Cl (D5-1/2ns + KCl 20 Meq) 1,000 ml @ 75 mls/ hr [id number] IV Last administered on 08/09/17 22:42; Admin Dose 75 MLS/HR; Start 08/09/17 at 22:00 Lisinopril (Zestril) 20 mg DAILY PO ; Start 08/10/17 at 10:30 Acetaminophen (Tylenol Tab) 650 mg Q4H PRN PO PAIN AND OR ELEVATED TEMP; Start 08/10/17 at 10:30 Assessment/Plan Chief Complaint/Hosp Course IMPRESSION 1. Status post exploratory laparotomy and now ileostomy. 2. Recent bowel resection for colon carcinoma. 3. History of atrial fibrillation, congestive cardiac failure. 4. Hypoxemic respiratory failure with left pleural effusion 5. Hypernatremia PLAN: 1. Continue incentive spirometry 2. Bronchodilators as needed 3. Continue postop surgical recommendations including nasogastric tube suction. 4. Deep venous thrombosis and gastrointestinal prophylaxis. 5. Continue antibiotics. 6. PT eval encourage out of bed if tolerated Transfer to telemetry okay from pulmonary standpoint Problems: YONATAN MAC MD, [facility] Aug 10, 2017 11:29
--- NOTE | 2017-08-10 13:04 | CONS ---
Date/Time of Note Date/Time of Note DATE: 08/10/17 TIME: 12:14 Assessment/Plan Assessment/Plan Additional Assessment/Plan 1. Oliguric EJ due to ATN from Shock- Multifactorial septic from peritonitis + Hemorrhagic- Improving, making good urine- 1600 ml /24 hr 2. Acute hyperkalemia due to EJ- Resolved 3. Metabolic acidosis with lactic acidosis- Improved much better, 4. acute resp failure, possible Asp PNA vs HCAP - pt remained on ventilator post operatively ,s/p US thoracentesis 400 cc removed from left chest 5. Septic shock requiring pressors, now off levophed 6. Status post Left hemicolectomy for sigmoid adenocarcinoma/mass POD# 8 - s/p total of 4 units pRBC since admission. - again pt underwent Exploratory laparotomy with intra- abdominal abscess drainage, Placement of percutaneous Maurisio drains #19 x2., Partial colectomy.Formation of end colostomy with Corona's pouch. on 08/05/17 7. Atrial fibrillation 8. Chronic diastolic heart failure with EF 55% 9. Hypocalcemia with hypoalbuminemia 10. Hypernatremia - Na 150, will change IVF D5 1/2 NS +2O meq K to D5w + 20 meq K at 75 cc/hr, BMP am 11. Edema- BUE/BLE- will get venous Doppler r/o DVT 12. Thrombocytosis Plan: - sp extubation - s/p Thoracentesis 400 cc drained, -Bp stable - Na trending up. -Urine output 1.6 L/24 hrs -Renal US negative for acute findings -consider TPN For nutrition purpose, we will d/c IVF when pt will be on TPN - will continue to follow up along with other subspecialist - Total critical care time spent is 30 mins, Dw Dr Caden Kiser/staff Consultation Date/Type/Reason Admit Date/Time Jul 24, 2017 at 06:16 Initial Consult Date 08/05/17 Type of Consultation: Pulmonary Referring Provider: RAE CALVO 24 HR Interval Summary Free Text/Dictation -alet/awake. responsive, afebrile, making good urine, feels better - Na elevated- will change IVF - plan to downgrade to tele when stable - no new issues reported by staff overnight - Dw staff Constitutional: requiring IVF, requiring O2 Detailed Summary Respiratory: no complaints Cardiovascular: no complaints Gastrointestinal: pain (surgical abdomen) Genitourinary: no complaints Musculoskeletal: no complaints Exam/Review of Systems Vital Signs Vitals Vital Signs Date Time Temp Pulse Resp B/P Pulse Ox O2 Delivery O2 Flow Rate FiO2 08/10/17 09:00 80 18 149/79 97 Nasal Cannula 2.0 08/10/17 08:00 98.4 08/09/17 12:00 30 Intake and Output 08/09/17 08/09/17 08/10/17 15:00 23:00 07:00 Intake Total 808 ml 525 ml 1050 ml Output Total 560 ml 710 ml 590 ml Balance 248 ml -185 ml 460 ml Exam Constitutional: alert, obese Respiratory: diminished breath sounds (bilaterally) Cardiovascular: nl pulses, other (s1s2) Gastrointestinal: other (colostomy intact, abd dressing DDI), soft Musculoskeletal: nl extremities to inspection Extremities: edema (Jose hands, jose feet swollen, chasidy bilateral calf pain) Neurological: nl speech, other (alewrt/ awake, responsive,) Results Result Diagram: 08/10/17 0530 08/10/17 0530 Results 24 hrs Laboratory Tests Test 08/10/17 05:30 White Blood Count 10.7 # Red Blood Count 3.85 L Hemoglobin 10.0 L Hematocrit 32.6 L Mean Corpuscular Volume 84.7 Mean Corpuscular Hemoglobin 26.0 L Mean Corpuscular Hemoglobin Concent 30.7 L Red Cell Distribution Width 21.5 H Platelet Count 659 H Mean Platelet Volume 11.0 H Neutrophils % Segmented Neutrophils % (Manual) 59 Band Neutrophils % (Manual) 21 H Lymphocytes % Lymphocytes % (Manual) 9 L Reactive Lymphocytes % (Manual) 1 H Monocytes % Monocytes % (Manual) 7 Eosinophils % Eosinophils % (Manual) 2 Basophils % Myelocytes % (Manual) 1 H Nucleated Red Blood Cells % 0.0 Neutrophils # Neutrophils # (Manual) 6.5 Band Neutrophils # 2.2 H Absolute Lymphocytes (Manual) 0.9 Lymphocytes # Reactive Lymphocytes # 0.1 H Monocytes # Absolute Monocytes (Manual) 0.7 Eosinophils # Basophils # Myelocytes # 0.1 H Nucleated Red Blood Cells # Platelet Estimate INCREASED Giant Platelets 1 H Polychromasia 3+ Hypochromasia 1+ Anisocytosis 1+ Microcytosis 1+ Sodium Level 150 H Potassium Level 3.9 Chloride Level 114 H Carbon Dioxide Level 24 Anion Gap 16 Blood Urea Nitrogen 16 # Creatinine 0.55 Glucose Level 118 Calcium Level 7.2 L Phosphorus Level 2.9 Magnesium Level 2.4 Total Bilirubin 0.2 Direct Bilirubin 0.00 Indirect Bilirubin 0.2 Aspartate Amino Transf (AST/SGOT) 43 Alanine Aminotransferase (ALT/SGPT) 37 Alkaline Phosphatase 90 Total Protein 5.1 L Albumin 2.2 L Globulin 2.90 Albumin/Globulin Ratio 0.75 Medications Medications Current Medications Acetaminophen 650 mg 650 mg Q4H PRN PO pain/fever; Start 07/24/17 at 07:00; Status Future Hold Ondansetron HCl/ Sodium Chloride (Zofran Inj/NS) 54 ml @ 216 mls/hr Q6H PRN IV NAUSEA AND/OR VOMITING Last administered on 08/05/17 03:50; Admin Dose 216 MLS/HR; Start 07/27/17 at 13:00 Phenol (Chloraseptic Throat [place]) 2 spray Q2H PRN MT SORE THROAT Last administered on 07/29/17 18:10; Admin Dose 2 SPRAY; Start 07/29/17 at 13:00 Diphenhydramine HCl (Benadryl) 25 mg Q6H PRN IV SLEEP Last administered on 08/01 00:19; Admin Dose 25 MG; Start 07/31/17 at 13:00 Chlorpromazine (Thorazine) 10 mg Q6 PRN IM HICCUPS Last administered on 21:21; Admin Dose 10 MG; Start 08/02/17 at 06:00 Loratadine (Claritin) 10 mg DAILY NGT Last administered on 08/04/17 09:32; Admin Dose 10 MG; Start 08/04/17 at 09:00 Hydromorphone HCl 0.5 mg 0.5 mg Q2H PRN IV PAIN Last administered on 11:29; Admin Dose 0.5 MG; Start 08/05/17 at 22:30 Meropenem/Sodium Chloride (Merrem 1 Gm/50 ml (Pmx)) 50 ml @ 100 mls/hr Q12 IVPB Last administered on 08/10/17 08:45; Admin Dose 100 MLS/HR; Start at 21:00 Hydralazine HCl 10 mg 10 mg Q6H PRN IV sbp>170 Last administered on 08/09/17 14:18; Admin Dose 10 MG; Start 08/07/17 at 18:00 Vancomycin HCl (Vancocin) 250 ml @ 125 mls/hr Q12H IVPB Last administered on 08/10/17 00:45; Admin Dose 125 MLS/HR; Start 08/08/17 at 12:00 Famotidine 20 mg 20 mg BID IV Last administered on 08/10/17 08:45; Admin Dose 20 MG; Start 08/09/17 at 09:00 Potassium Chloride/Dextrose/ Sod Cl (D5-1/2ns + KCl 20 Meq) 1,000 ml @ 75 mls/ hr [id number] IV Last administered on 08/09/17 22:42; Admin Dose 75 MLS/HR; Start 08/09/17 at 22:00 Lisinopril (Zestril) 20 mg DAILY PO Last administered on 08/10/17 11:30; Admin Dose 20 MG; Start 08/10/17 at 10:30 Acetaminophen (Tylenol Tab) 650 mg Q4H PRN PO PAIN AND OR ELEVATED TEMP; Start 08/10/17 at 10:30 JUSTINA POSADAS Aug 10, 2017 12:24
--- NOTE | 2017-08-10 14:13 | RADRPT ---
PROCEDURE: Ultrasound of the bilateral lower extremity venous system. CLINICAL INDICATION: Bilateral leg pain and swelling, deep venous thrombosis TECHNIQUE: [place] scale with and without compression, color doppler, spectral doppler of the venous system of the bilateral lower extremities was performed. Venous augmentation maneuvers were utilized . COMPARISON: 09/09/2012 FINDINGS: Right: Common femoral vein: Patent. Femoral vein: Patent. Popliteal vein: Patent. Calf veins: Patent. No soft tissue abnormalities are identified. Left: Common femoral vein: Patent. Femoral vein: Patent. Popliteal vein: Patent. Calf veins: Patent. No soft tissue abnormalities are identified. IMPRESSION: No evidence of a deep vein thrombosis within the bilateral lower extremities. RPTAT: AADD .Migue Saenz MD, MD Date Time Electronically viewed and signed by .Migue Saenz MD, on 08/10/2017 14:12 .B/
[2017-08-10] MEDS: D5W + KCL 20 MEQ 1,000 ML IV SCH (15:03)
--- NOTE | 2017-08-10 15:51 | RADRPT ---
PROCEDURE: Bilateral upper extremity venous ultrasound CLINICAL INDICATION: Bilateral upper extremity pain and swelling. Deep venous thrombosis. TECHNIQUE: [place]ina scale, color doppler, spectral doppler ultrasound imaging of the venous system of the bilateral upper extremities. Augmentation maneuvers were utilized. COMPARISON: No prior studies are available for comparison. FINDINGS: RIGHT: Internal jugular vein: Patent. Subclavian vein: Patent. Axillary vein: Patent. Brachial vein: Patent. Basilic vein: Patent. Cephalic vein: Patent. Radial vein: Patent. Ulnar vein: Patent. LEFT: Internal jugular vein: Patent. Subclavian vein: Patent. Axillary vein: Patent. Brachial vein: Patent. Basilic vein: Patent. Cephalic vein: Patent. Radial vein: Patent. Ulnar vein: Patent. IMPRESSION: No evidence of a deep vein thrombosis involving the bilateral upper extremities. RPTAT: AADD .Migue Saenz MD, Date Time Electronically viewed and signed by .Migue Saenz MD, on 08/10/2017 15:50 .B/
--- NOTE | 2017-08-10 17:59 | PN ---
DATE: 08/10/2017 INFECTIOUS DISEASE PROGRESS NOTE SUBJECTIVE: No acute changes overnight. The patient was extubated yesterday. She is alert, having a late lunch. She is in no distress. MICROBIOLOGY: Abdominal wound culture on admission on 08/05 grew E. coli, enterococcus species and oxacillin-sensitive Staphylococcus aureus. Aerobic cultures grew Bacteroides fragilis; fluid cultur es have been negative. INDWELLINGS: The patient has Leal, right IJ triple-lumen catheter. DIAGNOSTICS: She had an ultrasound of the extremities that revealed no DVT. ANTIMICROBIALS: The patient remains on: 1. Vancomycin. 2. Merrem. ALLERGIES: 1. PENICILLIN. 2. SULFA. 3. AMOXICILLIN. PHYSICAL EXAMINATION: GENERAL: This is an obese, well-developed, middle-aged white woman who is alert, in no distress. HEENT: Head atraumatic, normocephalic. Sclerae anicteric. Buccal mucosa dry. NECK: Supple. CHEST: Rise symmetrical. Breath sounds diminished to bases. HEART: S1, S2. ABDOMEN: Soft, bowel tones present. EXTREMITIES: With bilateral edema lower extremities. ASSESSMENT: 1. Status post septic shock. 2. Status post respiratory failure. 3. Colon cancer, status post resection with primary anastomosis complicated by anastomotic leak, st atus post exploratory laparotomy and drainage of abscesses, partial colectomy with colostomy on 02/2017. 4. Pleural effusion, status post thoracentesis. 5. Anemia. 6. Obesity. PLAN: The patient remains stable. She is on appropriate antibiotics, which we're going to continue . Continue anti-aspiration measures. Follow recommendations of specialists. Dictated By: YG TARANGO OCCUPATIONAL THERAPIST ASSISTANT for LUIS FERNANDO SURESH MD NI/NTS Conf#: [id number] DID#: [id number] CC: CECILIA LEON MD;*EndCC*
--- NOTE | 2017-08-10 18:41 | PN ---
DATE: 08/10/2017 SUBJECTIVE: The patient is in ICU room 10, postop day #5. Procedure: Exploratory laparotomy, drainage of peritoneal abscesses, bowel resection, ___ end-colostomy from transverse colon and Corona closure of the remaining distal rectosigmoid and placement of drain into the peritoneal cavity. This patient today was started on clear liquids, so far has tolerated. She was extubated yesterday. The patient does not have that much of complaint except some pain. OBJECTIVE: GENERAL: Awake, alert, oriented x3. VITAL SIGNS: Temperature today is 98.6, heart rate maximum 104, sinus tachycardia, respiratory rate 20, blood pressure 149/79, saturation 97% on 2 liters nasal cannula. LABORATORY DATA: Sodium 150, potassium 3.9, chloride 114 -- high, BUN 16, creatinine 0.55, calcium 7.2. Total protein 5.1, albumin 2.2. Hematology: WBC dropped to 10.7 with 59% segmented and 21% bands. Hemoglobin 10, hematocrit 32.6. Intake and output: Total urine output the past 24 hours 1615. Colostomy is functioning. The bag is full of air. HEART: Regular, sinus tachycardia. LUNGS: Decreased breathing sound at bases. ABDOMEN: Not distended, it is soft. Bowel sound is present. EXTREMITIES: Lower extremity is swollen and edematous. The ultrasound Doppler of the lower extremity did not reveal evidence of any deep vein thrombosis. Also, upper extremity did not reveal any evidence of deep vein thrombosis. Swallowing evaluation today revealed that the patient can tolerate mechanical soft diet. So the patient was started on clear liquids. ASSESSMENT AND PLAN: A 51-year-old female who originally underwent left hemicolectomy because of bleeding large colon cancer on the left side with primary anastomosis. Postoperatively the patient gradually developed ileus and leukocytosis and fever, and CT scan revealed presence of abscesses in the peritoneal cavity, so the patient was operated on Saturday, with peritoneal cavity abscess drained. There was evidence of disruption of the anastomosis partially. That was taken care of by doing colectomy up to the transverse colon and creating Corona's pouch and end-colostomy in the right upper quadrant. The patient was put on different antibiotics and peritoneal washout was completely done with placement of 2 drains. Postoperatively the patient had to be kept on intubation and only 1 pressor for 1 day and gradually the patient was able to be weaned off the ventilator. Yesterday very extubated and today started on clear liquids. The patient now, as was mentioned, is oriented , alert and awake and heart rate is only about 104, sinus tachycardia, respiration is in 20's and blood pressure is acceptable and urine output is adequate. BUN and creatinine are okay. WBC is 10,000. PLAN: Continue antibiotics, hydration. Probably we have to give some oncotic pressure stimulant like albumin and probably the patient may need to be started on hyperalimentation if their intake is not going to be enough. Will continue to follow the patient. Dictated By: ILSA KAPLAN MD PS/NTS Conf#: [id number] DID#: [id number] MTDD
[2017-08-11] VITALS (11 sets, daily range): BP systolic 148–157; BP diastolic 78–82; PULSE 94–110; RESP 17–24
[2017-08-11] MEDS: VANCOMYCIN 1 GM in NS 250 ML IVPB SCH ×2 (00:34→12:33)
[2017-08-11] MEDS: HYDROmorphONE 0.5 MG/0.5 ML SYG IV PRN ×10 (02:15→23:12)
[2017-08-11] MEDS: D5W + KCL 20 MEQ 1,000 ML IV SCH ×2 (03:20→08:46)
[2017-08-11 06:38] LABS: ABNORMAL IP MESSAGE 1; HEMATOCRIT 33.5 % (37.0-47.0); HEMOGLOBIN 10.1 g/dl (12.0-16.0); MEAN CORPUSCULAR HEMOGLOBIN 25.4 pg (29.0-33.0); MEAN CORPUSCULAR HGB CONC 30.1 g/dl (32.0-37.0); MEAN CORPUSCULAR VOLUME 84.2 fl (82.0-101.0); MEAN PLATELET VOLUME 10.6 fl (7.4-10.4); PLATELET COUNT 717 10^3/UL (140-415); RED BLOOD COUNT 3.98 10^6/ul (4.20-5.40); RED CELL DISTRIBUTION WIDTH 22.4 % (11.5-14.5)
[2017-08-11 06:44] LABS: POSITIVE DIFF @See below
[2017-08-11 07:12] LABS: ALBUMIN 2.2 g/dl (3.3-4.9); ALBUMIN/GLOBULIN RATIO 0.75; BILIRUBIN,INDIRECT 0.3 mg/dl (0-1.1); BILIRUBIN,TOTAL 0.3 mg/dl (0.2-1.3); CALCIUM 7.3 mg/dl (8.4-10.2); CREATININE 0.48 mg/dl (0.44-1.00); TOTAL PROTEIN 5.1 g/dl (6.1-8.1)
[2017-08-11] MEDS: MEROPENEM 1 GM/50ML(PMX) 50 ML IVPB SCH ×2 (08:33→20:55)
[2017-08-11] MEDS: LORATADINE 10 MG TAB NGT SCH (08:33)
[2017-08-11] MEDS: LISINOPRIL 20 MG TAB PO SCH (08:33)
[2017-08-11] MEDS: FAMOTIDINE 20 MG INJ IV SCH ×2 (08:33→20:42)
--- NOTE | 2017-08-11 09:14 | RADRPT ---
PROCEDURE: XR Chest. CLINICAL INDICATION: Shortness of breath. TECHNIQUE: Single frontal view. COMPARISON: 08/09/2017. FINDINGS: The endotracheal tube and nasogastric tube have been removed. The right internal jugular vein cathet er remains in satisfactory position. There is mild left basilar atelectasis, slightly worse than see n previously. The lungs are otherwise clear. The heart size is normal. There is no pleural effusion. There is no pneumothorax. IMPRESSION: 1. Endotracheal tube and nasogastric tube removed. 2. Right IJ catheter in satisfactory position. 3. Slightly worse appearance of the left lung base. 4. Otherwise unremarkable chest radiograph. RPTAT: QQ .Kana Renteria MD, MD Date Time Electronically viewed and signed by .Kana Renteria MD, on 08/11/2017 09:13 .R/
--- NOTE | 2017-08-11 11:07 | CONS ---
Date/Time of Note Date/Time of Note DATE: 08/11/17 TIME: 11:07 Consult Date/Type/Reason Admit Date/Time Jul 24, 2017 at 06:16 Initial Consult Date 08/05/17 Type of Consultation: Pulmonary Ordering Provider: RAE CALVO Subjective The patient comfortable this morning. No events overnight. Requesting her diet be advanced. Objective Vital Signs Date Time Temp Pulse Resp B/P Pulse Ox O2 Delivery O2 Flow Rate FiO2 08/11/17 08:00 95 08/11/17 06:59 98.0 21 148/78 94 08/11/17 05:35 2.0 08/10/17 18:41 Room Air 08/09/17 12:00 30 Intake and Output 08/10/17 08/10/17 08/11/17 15:00 23:00 07:00 Intake Total 425 ml 200 ml 1800 ml Output Total 400 ml 240 ml 730 ml Balance 25 ml -40 ml 1070 ml Exam PHYSICAL EXAMINATION: GENERAL: Well-nourished, well-developed lady, nasal cannula oxygen. VITAL SIGNS: NECK: Supple, no JVD or lymphadenopathy. CARDIAC: S1, S2, no added sounds or murmurs. CHEST: Diminished air entry bilaterally. ABDOMEN: Soft, nontender. No guarding or rebound. EXTREMITIES: No cyanosis, clubbing, 1+ edema. NEUROLOGIC: Generalized weakness Results/Medications Result Diagram: 08/11/17 0555 08/11/17 0555 Results 24 hrs Laboratory Tests Test 08/11/17 05:55 White Blood Count 12.0 H Red Blood Count 3.98 L Hemoglobin 10.1 L Hematocrit 33.5 L Mean Corpuscular Volume 84.2 Mean Corpuscular Hemoglobin 25.4 L Mean Corpuscular Hemoglobin Concent 30.1 L Red Cell Distribution Width 22.4 H Platelet Count 717 H Mean Platelet Volume 10.6 H Neutrophils % Lymphocytes % Monocytes % Eosinophils % Basophils % Nucleated Red Blood Cells % 0.0 Neutrophils # Lymphocytes # Monocytes # Eosinophils # Basophils # Nucleated Red Blood Cells # Sodium Level 139 Potassium Level 4.0 Chloride Level 107 Carbon Dioxide Level 26 Anion Gap 10 # Blood Urea Nitrogen 11 Creatinine 0.48 Glucose Level 139 Calcium Level 7.3 L Total Bilirubin 0.3 Direct Bilirubin 0.00 Indirect Bilirubin 0.3 Aspartate Amino Transf (AST/SGOT) 46 Alanine Aminotransferase (ALT/SGPT) 43 Alkaline Phosphatase 116 Total Protein 5.1 L Albumin 2.2 L Globulin 2.90 Albumin/Globulin Ratio 0.75 Medications Current Medications Acetaminophen 650 mg 650 mg Q4H PRN PO pain/fever; Start 07/24/17 at 07:00; Status Future Hold Ondansetron HCl/ Sodium Chloride (Zofran Inj/NS) 54 ml @ 216 mls/hr Q6H PRN IV NAUSEA AND/OR VOMITING Last administered on 08/05/17 03:50; Admin Dose 216 MLS/HR; Start 07/27/17 at 13:00 Phenol (Chloraseptic Throat [place]) 2 spray Q2H PRN MT SORE THROAT Last administered on 07/29/17 18:10; Admin Dose 2 SPRAY; Start 07/29/17 at 13:00 Diphenhydramine HCl (Benadryl) 25 mg Q6H PRN IV SLEEP Last administered on 08/01 00:19; Admin Dose 25 MG; Start 07/31/17 at 13:00 Chlorpromazine (Thorazine) 10 mg Q6 PRN IM HICCUPS Last administered on 21:21; Admin Dose 10 MG; Start 08/02/17 at 06:00 Loratadine (Claritin) 10 mg DAILY NGT Last administered on 08/11/17 08:33; Admin Dose 10 MG; Start 08/04/17 at 09:00 Hydromorphone HCl 0.5 mg 0.5 mg Q2H PRN IV PAIN Last administered on 10:35; Admin Dose 0.5 MG; Start 08/05/17 at 22:30 Meropenem/Sodium Chloride (Merrem 1 Gm/50 ml (Pmx)) 50 ml @ 100 mls/hr Q12 IVPB Last administered on 08/11/17 08:33; Admin Dose 100 MLS/HR; Start at 21:00 Hydralazine HCl 10 mg 10 mg Q6H PRN IV sbp>170 Last administered on 08/09/17 14:18; Admin Dose 10 MG; Start 08/07/17 at 18:00 Vancomycin HCl (Vancocin) 250 ml @ 125 mls/hr Q12H IVPB Last administered on 11/12/17at 00:34; Admin Dose 125 MLS/HR; Start 08/08/17 at 12:00 Famotidine (Pepcid Iv) 20 mg BID IV Last administered on 08/11/17 08:33; Admin Dose 20 MG; Start 08/09/17 at 09:00 Lisinopril (Zestril) 20 mg DAILY PO Last administered on 08/11/17 08:33; Admin Dose 20 MG; Start 08/10/17 at 10:30 Acetaminophen 650 mg 650 mg Q4H PRN PO PAIN AND OR ELEVATED TEMP; Start at 10:30 Potassium Chloride/Dextrose (D5W + KCl 20 Meq) 1,000 ml @ 75 mls/hr [id number] IV Last administered on 08/11/17 08:46; Admin Dose 75 MLS/HR; Start 08/10/17 at 14:00 Assessment/Plan Chief Complaint/Hosp Course IMPRESSION 1. Status post exploratory laparotomy and now ileostomy. 2. Recent bowel resection for colon carcinoma. 3. History of atrial fibrillation, congestive cardiac failure. 4. Hypoxemic respiratory failure with left pleural effusion 5. Hypernatremia PLAN: 1. Continue incentive spirometry 2. Bronchodilators as needed 3. Continue postop surgical recommendations including nasogastric tube suction. 4. Deep venous thrombosis and gastrointestinal prophylaxis. 5. Continue antibiotics. 6. PT eval encourage out of bed if tolerated Advance diet per general surgery. Problems: YONATAN MAC MD, [facility] Aug 11, 2017 11:07
--- NOTE | 2017-08-11 12:24 | CONS ---
Date/Time of Note Date/Time of Note DATE: 08/11/17 TIME: 12:22 Assessment/Plan Assessment/Plan Additional Assessment/Plan Paroxysmal atrial fibrillation with rapid ventricular rates, currently sinus Acute decompensated systolic and diastolic congestive heart failure Low normal ejection fraction 50% Colon mass status post colon surgery July 26, 2017 and repeat August 05, 2017 Acute kidney injury, improved Sepsis Vent dependent respiratory failure, status post extubation -Patient remains in sinus rhythm. If episodes of recurrent atrial fibrillation , would restart IV amiodarone. Consider initiation of IV diuretics given edema if okay by our nephrology colleagues, maintain potassium above 4.0 and magnesium above 2.0 Consultation Date/Type/Reason Admit Date/Time Jul 24, 2017 at 06:16 Initial Consult Date 07/29/17 Type of Consultation: cv Referring Provider: RAE CALVO 24 HR Interval Summary Free Text/Dictation Patient denies shortness of breath, palpitations, overall feeling better Exam/Review of Systems Vital Signs Vitals Vital Signs Date Time Temp Pulse Resp B/P Pulse Ox O2 Delivery O2 Flow Rate FiO2 08/11/17 12:02 94 08/11/17 06:59 98.0 21 148/78 94 08/11/17 05:35 2.0 08/10/17 18:41 Room Air 08/09/17 12:00 30 Intake and Output 08/10/17 08/10/17 08/11/17 15:00 23:00 07:00 Intake Total 425 ml 200 ml 1800 ml Output Total 400 ml 240 ml 730 ml Balance 25 ml -40 ml 1070 ml Exam No apparent distress, following commands Constitutional: alert, oriented Head: normocephalic Respiratory: other (Coarse breath sounds bilaterally, no wheezing) Cardiovascular: other (S1-S2 heard), regular rate and rhythm Gastrointestinal: bowel sounds, soft Extremities: edema Results Result Diagram: 08/11/17 0555 08/11/17 0555 Results 24 hrs Laboratory Tests Test 08/11/17 05:55 White Blood Count 12.0 H Red Blood Count 3.98 L Hemoglobin 10.1 L Hematocrit 33.5 L Mean Corpuscular Volume 84.2 Mean Corpuscular Hemoglobin 25.4 L Mean Corpuscular Hemoglobin Concent 30.1 L Red Cell Distribution Width 22.4 H Platelet Count 717 H Mean Platelet Volume 10.6 H Neutrophils % Lymphocytes % Monocytes % Eosinophils % Basophils % Nucleated Red Blood Cells % 0.0 Neutrophils # Lymphocytes # Monocytes # Eosinophils # Basophils # Nucleated Red Blood Cells # Sodium Level 139 Potassium Level 4.0 Chloride Level 107 Carbon Dioxide Level 26 Anion Gap 10 # Blood Urea Nitrogen 11 Creatinine 0.48 Glucose Level 139 Calcium Level 7.3 L Total Bilirubin 0.3 Direct Bilirubin 0.00 Indirect Bilirubin 0.3 Aspartate Amino Transf (AST/SGOT) 46 Alanine Aminotransferase (ALT/SGPT) 43 Alkaline Phosphatase 116 Total Protein 5.1 L Albumin 2.2 L Globulin 2.90 Albumin/Globulin Ratio 0.75 Medications Medications Current Medications Acetaminophen 650 mg 650 mg Q4H PRN PO pain/fever; Start 07/24/17 at 07:00; Status Future Hold Ondansetron HCl/ Sodium Chloride (Zofran Inj/NS) 54 ml @ 216 mls/hr Q6H PRN IV NAUSEA AND/OR VOMITING Last administered on 08/05/17 03:50; Admin Dose 216 MLS/HR; Start 07/27/17 at 13:00 Phenol (Chloraseptic Throat [place]) 2 spray Q2H PRN MT SORE THROAT Last administered on 07/29/17 18:10; Admin Dose 2 SPRAY; Start 07/29/17 at 13:00 Diphenhydramine HCl (Benadryl) 25 mg Q6H PRN IV SLEEP Last administered on 08/01 00:19; Admin Dose 25 MG; Start 07/31/17 at 13:00 Chlorpromazine (Thorazine) 10 mg Q6 PRN IM HICCUPS Last administered on 21:21; Admin Dose 10 MG; Start 08/02/17 at 06:00 Loratadine (Claritin) 10 mg DAILY NGT Last administered on 08/11/17 08:33; Admin Dose 10 MG; Start 08/04/17 at 09:00 Hydromorphone HCl 0.5 mg 0.5 mg Q2H PRN IV PAIN Last administered on 10:35; Admin Dose 0.5 MG; Start 08/05/17 at 22:30 Meropenem/Sodium Chloride (Merrem 1 Gm/50 ml (Pmx)) 50 ml @ 100 mls/hr Q12 IVPB Last administered on 11/12/17at 08:33; Admin Dose 100 MLS/HR; Start at 21:00 Hydralazine HCl 10 mg 10 mg Q6H PRN IV sbp>170 Last administered on 08/09/17 14:18; Admin Dose 10 MG; Start 08/07/17 at 18:00 Vancomycin HCl (Vancocin) 250 ml @ 125 mls/hr Q12H IVPB Last administered on 08/11/17 00:34; Admin Dose 125 MLS/HR; Start 08/08/17 at 12:00 Famotidine (Pepcid Iv) 20 mg BID IV Last administered on 08/11/17 08:33; Admin Dose 20 MG; Start 08/09/17 at 09:00 Lisinopril (Zestril) 20 mg DAILY PO Last administered on 08/11/17 08:33; Admin Dose 20 MG; Start 08/10/17 at 10:30 Acetaminophen 650 mg 650 mg Q4H PRN PO PAIN AND OR ELEVATED TEMP; Start at 10:30 Potassium Chloride/Dextrose (D5W + KCl 20 Meq) 1,000 ml @ 75 mls/hr [id number] IV Last administered on 08/11/17 08:46; Admin Dose 75 MLS/HR; Start 08/10/17 at 14:00 Miscellaneous Information (*Rx Drug Level Order Reminder*) VANCO TROUGH @ 1, 100 ON ... ONCE ONCE XX ; Start 08/12/17 at 11:00; Stop 08/12/17 at 11:01 Fercho Mojica DO Aug 11, 2017 12:24
--- NOTE | 2017-08-11 13:14 | PN ---
DATE: 08/11/2017 Postoperative day #6 status post exploratory laparotomy, drainage of the peritoneal abscesses, washo ut, partial colon resection, placement of end transverse colostomy and Corona pouch creation. The patient was transferred out of the ICU last night. The patient is on clear liquids. SUBJECTIVE: Feels better. No special complaints. She still requires pain medication every 2 hours . OBJECTIVE: GENERAL: Awake, alert, oriented. VITAL SIGNS: Temperature 98.3, heart rate 95 and regular, respirations 21, blood pressure 148/78, s aturation 94% on 2 liters nasal cannula. HEART: Regular. LUNGS: Decreased breathing sounds at bases. ABDOMEN: Distended, firm. There is a lot of subcutaneous edema. Colostomy functioning, a lot of g as in the bag. There are two Den-Klein drains, one in the right side which is draining serosang uineous fluid, the other one is on the left side. I think it is in the left gutter. It is draining brownish purulent fluid. LOWER EXTREMITIES: There is pitting edema everywhere. Actually the patient is quite swollen and ap pears to have anasarca. LABORATORY DATA: WBC 12,000. Differential has not been done yet. Hemoglobin 10.1, hematocrit 33.5 . Chemistry: Sodium and potassium normal. BUN and creatinine normal. Calcium 7.3, total protein 5.1, albumin 2.2. Chest x-ray today was read as follows: 1. Endotracheal tube and NG tube has been removed. 2. Right IJ catheter in satisfactory position. 3. Slightly worse appearance of the left lung base. Otherwise unremarkable chest radiograph. ASSESSMENT AND PLAN: A 51-year-old lady who had left colon resection, got complicated by leakage an d causing peritonitis and abscess formation, required exploratory laparotomy, washout, drainage, mor e colon resection and colostomy. The patient was kept intubated up to Saturday, 2 days ago was extuba chaitanya, yesterday clear liquids started. The patient's colostomy is functioning. The patient is on IV fluids and antibiotics. PLAN: 1. We will increase the diet to full liquid diet today. 2. Considering anasarca, I am going to start the patient on albumin 25 grams b.i.d. IV. Not as a s ource of nutrition, but to increase oncotic pressure and help to mobilize the extra lymphatic fluid and interstitial fluid. Dictated By: ILSA KAPLAN MD PS/VINNY Conf#: [id number] DID#: [id number] CC: CECILIA LEON MD;*EndCC*
--- NOTE | 2017-08-11 13:21 | CONS ---
Date/Time of Note Date/Time of Note DATE: 08/11/17 TIME: 13:15 Assessment/Plan Assessment/Plan Additional Assessment/Plan 1. Oliguric EJ due to ATN from Shock- Multifactorial septic from peritonitis + Hemorrhagic- Improving, making good urine- 2500 ml /24 hr 2. Acute hyperkalemia due to EJ- Resolved 3. Metabolic acidosis with lactic acidosis- Improved much better, 4. acute resp failure, possible Asp PNA vs HCAP - pt remained on ventilator post operatively ,s/p US thoracentesis 400 cc removed from left chest 5. Septic shock requiring pressors, now off Levophed 6. Status post Left hemicolectomy for sigmoid adenocarcinoma/mass POD # 9 - s/p total of 4 units PRBC since admission. - again pt underwent Exploratory laparotomy with intra- abdominal abscess drainage, Placement of percutaneous Maurisio drains #19 x2., Partial colectomy.Formation of end colostomy with Corona's pouch. on 08/05/17 7. Atrial fibrillation 8. Chronic diastolic heart failure with EF 55% 9. Hypocalcemia with hypoalbuminemia 10. Hypernatremia- resolved 11. Edema- BUE/BLE- will get venous Doppler r/o DVT= negative 12. Thrombocytosis Plan: - s/p Thoracentesis 400 cc drained, -Bp stable - Na wnl -Urine output 2.5 L/24 hrs -Renal US negative for acute findings -consider TPN For nutrition purpose, we will d/c IVF when pt will be on TPN will continue to follow up along with other subspecialist Chapito Kiser/staff Consultation Date/Type/Reason Admit Date/Time Jul 24, 2017 at 06:16 Initial Consult Date 08/05/17 Type of Consultation: cv Referring Provider: RAE CALVO 24 HR Interval Summary Free Text/Dictation - got transferred from ICU to tele -alert/awake. responsive, afebrile, making good urine, feels better. po 800cc/ 24 hrs - Hypernatremia- resolved - cont on tele - Dw staff Constitutional: requiring IVF, requiring O2 Detailed Summary Respiratory: no complaints Cardiovascular: no complaints Gastrointestinal: other (surgical abdomen0 dressing noted), pain Genitourinary: no complaints Musculoskeletal: no complaints Exam/Review of Systems Vital Signs Vitals Vital Signs Date Time Temp Pulse Resp B/P Pulse Ox O2 Delivery O2 Flow Rate FiO2 11/12/17 12:22 98.0 98 24 157/79 92 08/11/17 05:35 2.0 08/10/17 18:41 Room Air 08/09/17 12:00 30 Intake and Output 08/10/17 08/10/17 08/11/17 15:00 23:00 07:00 Intake Total 425 ml 200 ml 1800 ml Output Total 400 ml 240 ml 730 ml Balance 25 ml -40 ml 1070 ml Exam Constitutional: alert, oriented Respiratory: diminished breath sounds (billaerally) Cardiovascular: nl pulses, other (s1s2) Gastrointestinal: other (surgical abdomen-DDI), soft Musculoskeletal: nl extremities to inspection Extremities: normal pulses Neurological: nl mental status, nl speech Results Result Diagram: 08/11/17 0555 08/11/17 0555 Results 24 hrs Laboratory Tests Test 08/11/17 05:55 White Blood Count 12.0 H Red Blood Count 3.98 L Hemoglobin 10.1 L Hematocrit 33.5 L Mean Corpuscular Volume 84.2 Mean Corpuscular Hemoglobin 25.4 L Mean Corpuscular Hemoglobin Concent 30.1 L Red Cell Distribution Width 22.4 H Platelet Count 717 H Mean Platelet Volume 10.6 H Neutrophils % Lymphocytes % Monocytes % Eosinophils % Basophils % Nucleated Red Blood Cells % 0.0 Neutrophils # Lymphocytes # Monocytes # Eosinophils # Basophils # Nucleated Red Blood Cells # Sodium Level 139 Potassium Level 4.0 Chloride Level 107 Carbon Dioxide Level 26 Anion Gap 10 # Blood Urea Nitrogen 11 Creatinine 0.48 Glucose Level 139 Calcium Level 7.3 L Total Bilirubin 0.3 Direct Bilirubin 0.00 Indirect Bilirubin 0.3 Aspartate Amino Transf (AST/SGOT) 46 Alanine Aminotransferase (ALT/SGPT) 43 Alkaline Phosphatase 116 Total Protein 5.1 L Albumin 2.2 L Globulin 2.90 Albumin/Globulin Ratio 0.75 Medications Medications Current Medications Acetaminophen 650 mg 650 mg Q4H PRN PO pain/fever; Start 07/24/17 at 07:00; Status Future Hold Ondansetron HCl/ Sodium Chloride (Zofran Inj/NS) 54 ml @ 216 mls/hr Q6H PRN IV NAUSEA AND/OR VOMITING Last administered on 08/05/17t 03:50; Admin Dose 216 MLS/HR; Start 07/27/17 at 13:00 Phenol (Chloraseptic Throat [place]) 2 spray Q2H PRN MT SORE THROAT Last administered on 07/29/17 18:10; Admin Dose 2 SPRAY; Start 07/29/17 at 13:00 Diphenhydramine HCl (Benadryl) 25 mg Q6H PRN IV SLEEP Last administered on 08/01 00:19; Admin Dose 25 MG; Start 07/31/17 at 13:00 Chlorpromazine (Thorazine) 10 mg Q6 PRN IM HICCUPS Last administered on 21:21; Admin Dose 10 MG; Start 08/02/17 at 06:00 Loratadine (Claritin) 10 mg DAILY NGT Last administered on 08/11/17 08:33; Admin Dose 10 MG; Start 08/04/17 at 09:00 Hydromorphone HCl 0.5 mg 0.5 mg Q2H PRN IV PAIN Last administered on 12:33; Admin Dose 0.5 MG; Start 08/05/17 at 22:30 Meropenem/Sodium Chloride (Merrem 1 Gm/50 ml (Pmx)) 50 ml @ 100 mls/hr Q12 IVPB Last administered on 08/11/17 08:33; Admin Dose 100 MLS/HR; Start at 21:00 Hydralazine HCl 10 mg 10 mg Q6H PRN IV sbp>170 Last administered on 08/09/17 14:18; Admin Dose 10 MG; Start 08/07/17 at 18:00 Vancomycin HCl (Vancocin) 250 ml @ 125 mls/hr Q12H IVPB Last administered on 08/11/17 12:33; Admin Dose 125 MLS/HR; Start 08/08/17 at 12:00 Famotidine (Pepcid Iv) 20 mg BID IV Last administered on 08/11/17 08:33; Admin Dose 20 MG; Start 08/09/17 at 09:00 Lisinopril (Zestril) 20 mg DAILY PO Last administered on 08/11/17 08:33; Admin Dose 20 MG; Start 08/10/17 at 10:30 Acetaminophen 650 mg 650 mg Q4H PRN PO PAIN AND OR ELEVATED TEMP; Start at 10:30 Potassium Chloride/Dextrose (D5W + KCl 20 Meq) 1,000 ml @ 75 mls/hr [id number] IV Last administered on 08/11/17t 08:46; Admin Dose 75 MLS/HR; Start 08/10/17 at 14:00 Miscellaneous Information VANCO TROUGH @ 1,100 ON ... ONCE ONCE XX ; Start at 11:00; Stop 08/12/17 at 11:01 Albumin Human (Albumin Human 25%) 100 ml @ 100 mls/hr Q8H IV ; Start 08/11/17 at 12:30; Stop 08/15/17 at 12:29 JUSTINA POSADAS Aug 11, 2017 13:21
[2017-08-11] MEDS ORDERED: D5W-0.45 NACL + KCL 20 MEQ 1,000 ML IV SCH (13:30)
[2017-08-11] MEDS: ALBUMIN HUMAN 25% 100 ML IV SCH ×2 (14:34→20:30)
--- NOTE | 2017-08-11 15:33 | PN ---
Date/Time of Note Date/Time of Note DATE: 08/11/17 TIME: 15:20 Assessment/Plan VTE Prophylaxis VTE Prophylaxis Intervention: SCD's Lines/Catheters IV Catheter Type (from Nrs): Central Line Central line still needed: Yes Urinary Cath still in place: Yes Reason Cath still needed: pres ulcer contaminated by urine Assessment/Plan Assessment/Plan 51 year old female with: 1. Postop anastomotic leak with sepsis, status post ex lap with drainage of abscesses, drain placement, partial colectomy and colostomy POD#6 Status post Left hemicolectomy for sigmoid adenocarcinoma/mass POD#14 Intraoperative/intraperitoneal cultures positive for E. coli, enterococcus, staph aureus. Patient otherwise fairly stable postoperatively. No pressors and extubated and on room air now. Per jasmin Valentino to advance diet to full liquids and advance to soft as tolerated per surgery. 2. Acute respiratory failure: resolved and extubated. She is currently on room air. Status post left thoracentesis yesterday with removal of 400 cc pleural fluid. Chest x-ray today with improved pulmonary edema. Appreciate recommendations from nephrology and pulmonary. 3. Atrial fibrillation, chronic, currently remains in sinus rhythm in the 80s. Off amiodarone drip and digoxin. Appreciate cardiology recommendations. Anticoagulation discontinued, discussed with cardiology for now will just leave her off anticoagulation for the remainder of her postoperative course. Electrolyte repletion as needed. 4. Chronic congestive heart failure, chronic diastolic dysfunction and ejection fraction of 55% on latest outpatient echocardiogram in January 2017 and confirmed to be 50% on this admission. Currently in volume overload and will give IV lasix after albumin per my discussion with Dr. Kiser. Monitor volume status. 5. Acute kidney injury in setting of sepsis, also had the contrast studies 2. Resolved, renal function back to normal. Leal catheter in place. Adequate urine output, will plan on discontinuing IV fluids today. Case d/w Dr. Kiser adn we will d/c IVF as sodium normalized and patient appears to be volume overloaded. 6. Anemia, acute on chronic, postop: s/p 2 units of packed red blood cells, Hb stable. 7. Hypertension: Will resume lisinopril and norvasc as SBP around 150s. Elevation likely secondary to pain. Will monitor. Prophylaxis: Off anticoagulation, SCDs, Pepcid for GI prophylaxis. Disposition: Advance diet, continue IV antibiotics and will give lasix. Follow up further recommendation from infectious disease. Subjective 24 Hr Interval Summary Free Text/Dictation Sitting up in bed watching football. Feeling well. Tolerated clears this morning and diet is being advanced per surgery to full liquids. Off oxygen and doing well. Still with pain and requesting dilaudid approximately q2 hours. Exam/Review of Systems Vital Signs Vitals Vital Signs Date Time Temp Pulse Resp B/P Pulse Ox O2 Delivery O2 Flow Rate FiO2 08/11/17 15:14 98.4 99 22 152/80 93 08/11/17 05:35 2.0 08/10/17 18:41 Room Air 08/09/17 12:00 30 Intake and Output 08/10/17 08/10/17 08/11/17 15:00 23:00 07:00 Intake Total 425 ml 200 ml 1800 ml Output Total 400 ml 240 ml 730 ml Balance 25 ml -40 ml 1070 ml Exam Constitutional: alert, oriented Head: normocephalic Eyes: nl conjunctiva ENMT: nl external ears & nose Neck: supple Respiratory: clear to auscultation Cardiovascular: regular rate and rhythm Gastrointestinal: bowel sounds, soft Extremities: edema Results Result Diagram: 08/11/17 0555 08/11/17 0555 Results 24 hrs Laboratory Tests Test 08/11/17 05:55 White Blood Count 12.0 H Red Blood Count 3.98 L Hemoglobin 10.1 L Hematocrit 33.5 L Mean Corpuscular Volume 84.2 Mean Corpuscular Hemoglobin 25.4 L Mean Corpuscular Hemoglobin Concent 30.1 L Red Cell Distribution Width 22.4 H Platelet Count 717 H Mean Platelet Volume 10.6 H Neutrophils % Lymphocytes % Monocytes % Eosinophils % Basophils % Nucleated Red Blood Cells % 0.0 Neutrophils # Lymphocytes # Monocytes # Eosinophils # Basophils # Nucleated Red Blood Cells # Sodium Level 139 Potassium Level 4.0 Chloride Level 107 Carbon Dioxide Level 26 Anion Gap 10 # Blood Urea Nitrogen 11 Creatinine 0.48 Glucose Level 139 Calcium Level 7.3 L Total Bilirubin 0.3 Direct Bilirubin 0.00 Indirect Bilirubin 0.3 Aspartate Amino Transf (AST/SGOT) 46 Alanine Aminotransferase (ALT/SGPT) 43 Alkaline Phosphatase 116 Total Protein 5.1 L Albumin 2.2 L Globulin 2.90 Albumin/Globulin Ratio 0.75 Medications Medications Current Medications Acetaminophen 650 mg 650 mg Q4H PRN PO pain/fever; Start 07/24/17 at 07:00; Status Future Hold Ondansetron HCl/ Sodium Chloride (Zofran Inj/NS) 54 ml @ 216 mls/hr Q6H PRN IV NAUSEA AND/OR VOMITING Last administered on 08/05/17 03:50; Admin Dose 216 MLS/HR; Start 07/27/17 at 13:00 Phenol (Chloraseptic Throat [place]) 2 spray Q2H PRN MT SORE THROAT Last administered on 07/29/17 18:10; Admin Dose 2 SPRAY; Start 07/29/17 at 13:00 Diphenhydramine HCl (Benadryl) 25 mg Q6H PRN IV SLEEP Last administered on 08/01 00:19; Admin Dose 25 MG; Start 07/31/17 at 13:00 Chlorpromazine (Thorazine) 10 mg Q6 PRN IM HICCUPS Last administered on 21:21; Admin Dose 10 MG; Start 08/02/17 at 06:00 Loratadine (Claritin) 10 mg DAILY NGT Last administered on 08/11/17 08:33; Admin Dose 10 MG; Start 08/04/17 at 09:00 Hydromorphone HCl 0.5 mg 0.5 mg Q2H PRN IV PAIN Last administered on 14:32; Admin Dose 0.5 MG; Start 08/05/17 at 22:30 Meropenem/Sodium Chloride (Merrem 1 Gm/50 ml (Pmx)) 50 ml @ 100 mls/hr Q12 IVPB Last administered on 08/11/17 08:33; Admin Dose 100 MLS/HR; Start at 21:00 Hydralazine HCl 10 mg 10 mg Q6H PRN IV sbp>170 Last administered on 08/09/17 14:18; Admin Dose 10 MG; Start 08/07/17 at 18:00 Vancomycin HCl (Vancocin) 250 ml @ 125 mls/hr Q12H IVPB Last administered on 08/11/17 12:33; Admin Dose 125 MLS/HR; Start 08/08/17 at 12:00 Famotidine (Pepcid Iv) 20 mg BID IV Last administered on 08/11/17 08:33; Admin Dose 20 MG; Start 08/09/17 at 09:00 Lisinopril (Zestril) 20 mg DAILY PO Last administered on 08/11/17 08:33; Admin Dose 20 MG; Start 08/10/17 at 10:30 Acetaminophen (Tylenol Tab) 650 mg Q4H PRN PO PAIN AND OR ELEVATED TEMP; Start 08/10/17 at 10:30 Miscellaneous Information VANCO TROUGH @ 1,100 ON ... ONCE ONCE XX ; Start at 11:00; Stop 08/12/17 at 11:01 Albumin Human 100 ml @ 100 mls/hr Q8H IV Last administered on 08/11/17 14:34 ; Admin Dose 100 MLS/HR; Start 08/11/17 at 12:30; Stop 08/15/17 at 12:29 Potassium Chloride/Dextrose/ Sod Cl (D5-1/2ns + KCl 20 Meq) 1,000 ml @ 60 mls/ hr [id number] IV Last administered on 08/11/17 14:32; Admin Dose 60 MLS/HR; Start 08/11/17 at 13:30 GUZMAN LUGO MD Aug 11, 2017 15:33
[2017-08-11] MEDS ORDERED: FUROSEMIDE 40 MG INJ IV ONE (16:00)
--- NOTE | 2017-08-11 16:48 | CONS ---
Date/Time of Note Date/Time of Note DATE: 08/11/17 TIME: 16:46 Consult Date/Type/Reason Admit Date/Time Jul 24, 2017 at 06:16 Initial Consult Date 08/05/17 Type of Consultation: ID Ordering Provider: RAE CALVO Objective Vital Signs Date Time Temp Pulse Resp B/P Pulse Ox O2 Delivery O2 Flow Rate FiO2 08/11/17 16:01 98 08/11/17 15:14 98.4 22 152/80 93 08/11/17 05:35 2.0 08/10/17 18:41 Room Air 08/09/17 12:00 30 Intake and Output 08/10/17 08/10/17 08/11/17 15:00 23:00 07:00 Intake Total 425 ml 200 ml 1800 ml Output Total 400 ml 240 ml 730 ml Balance 25 ml -40 ml 1070 ml Results/Medications Result Diagram: 08/11/17 0555 08/11/17 0555 Results 24 hrs Laboratory Tests Test 08/11/17 05:55 White Blood Count 12.0 H Red Blood Count 3.98 L Hemoglobin 10.1 L Hematocrit 33.5 L Mean Corpuscular Volume 84.2 Mean Corpuscular Hemoglobin 25.4 L Mean Corpuscular Hemoglobin Concent 30.1 L Red Cell Distribution Width 22.4 H Platelet Count 717 H Mean Platelet Volume 10.6 H Neutrophils % Lymphocytes % Monocytes % Eosinophils % Basophils % Nucleated Red Blood Cells % 0.0 Neutrophils # Lymphocytes # Monocytes # Eosinophils # Basophils # Nucleated Red Blood Cells # Sodium Level 139 Potassium Level 4.0 Chloride Level 107 Carbon Dioxide Level 26 Anion Gap 10 # Blood Urea Nitrogen 11 Creatinine 0.48 Glucose Level 139 Calcium Level 7.3 L Total Bilirubin 0.3 Direct Bilirubin 0.00 Indirect Bilirubin 0.3 Aspartate Amino Transf (AST/SGOT) 46 Alanine Aminotransferase (ALT/SGPT) 43 Alkaline Phosphatase 116 Total Protein 5.1 L Albumin 2.2 L Globulin 2.90 Albumin/Globulin Ratio 0.75 Medications Current Medications Acetaminophen 650 mg 650 mg Q4H PRN PO pain/fever; Start 07/24/17 at 07:00; Status Future Hold Ondansetron HCl/ Sodium Chloride (Zofran Inj/NS) 54 ml @ 216 mls/hr Q6H PRN IV NAUSEA AND/OR VOMITING Last administered on 08/05/17 03:50; Admin Dose 216 MLS/HR; Start 07/27/17 at 13:00 Phenol (Chloraseptic Throat [place]) 2 spray Q2H PRN MT SORE THROAT Last administered on 07/29/17 18:10; Admin Dose 2 SPRAY; Start 07/29/17 at 13:00 Diphenhydramine HCl (Benadryl) 25 mg Q6H PRN IV SLEEP Last administered on 08/01 00:19; Admin Dose 25 MG; Start 07/31/17 at 13:00 Chlorpromazine (Thorazine) 10 mg Q6 PRN IM HICCUPS Last administered on 21:21; Admin Dose 10 MG; Start 08/02/17 at 06:00 Loratadine (Claritin) 10 mg DAILY NGT Last administered on 08/11/17 08:33; Admin Dose 10 MG; Start 08/04/17 at 09:00 Hydromorphone HCl 0.5 mg 0.5 mg Q2H PRN IV PAIN Last administered on 16:43; Admin Dose 0.5 MG; Start 08/05/17 at 22:30 Meropenem/Sodium Chloride (Merrem 1 Gm/50 ml (Pmx)) 50 ml @ 100 mls/hr Q12 IVPB Last administered on 08/11/17 08:33; Admin Dose 100 MLS/HR; Start at 21:00 Hydralazine HCl 10 mg 10 mg Q6H PRN IV sbp>170 Last administered on 08/09/17 14:18; Admin Dose 10 MG; Start 08/07/17 at 18:00 Vancomycin HCl (Vancocin) 250 ml @ 125 mls/hr Q12H IVPB Last administered on 08/11/17 12:33; Admin Dose 125 MLS/HR; Start 08/08/17 at 12:00 Famotidine (Pepcid Iv) 20 mg BID IV Last administered on 08/11/17 08:33; Admin Dose 20 MG; Start 08/09/17 at 09:00 Lisinopril (Zestril) 20 mg DAILY PO Last administered on 08/11/17 08:33; Admin Dose 20 MG; Start 08/10/17 at 10:30 Acetaminophen (Tylenol Tab) 650 mg Q4H PRN PO PAIN AND OR ELEVATED TEMP; Start 08/10/17 at 10:30 Miscellaneous Information VANCO TROUGH @ 1,100 ON ... ONCE ONCE XX ; Start at 11:00; Stop 08/12/17 at 11:01 Albumin Human (Albumin Human 25%) 100 ml @ 100 mls/hr Q8H IV Last administered on 08/11/17t 14:34; Admin Dose 100 MLS/HR; Start 08/11/17 at 12: 30; Stop 08/15/17 at 12:29 Furosemide (Lasix) 20 mg ONCE IV ; Start 08/11/17 at 20:00; Stop 08/11/17 at 23:59 Assessment/Plan Chief Complaint/Hosp Course SUBJECTIVE: No acute changes overnight. Tx to tele, awake, looks comfortable, afebrile MICROBIOLOGY: Abdominal wound culture on admission on 08/05 grew E. coli, enterococcus species and oxacillin-sensitive Staphylococcus aureus. Aerobic cultures grew Bacteroides fragilis; fluid cultures have been negative. INDWELLINGS: The patient has Leal, right IJ triple-lumen catheter. DIAGNOSTICS: Ultrasound of the extremities that revealed no DVT. ANTIMICROBIALS: 1. Vancomycin. 2. Merrem. ALLERGIES: 1. PENICILLIN. 2. SULFA. 3. AMOXICILLIN. PHYSICAL EXAMINATION: GENERAL: This is an obese, well-developed, middle-aged white woman who is alert , in no distress. HEENT: Head atraumatic, normocephalic. Sclerae anicteric. Buccal mucosa dry. NECK: Supple. CHEST: Rise symmetrical. Breath sounds diminished to bases. HEART: S1, S2. ABDOMEN: Soft, bowel tones present. EXTREMITIES: With bilateral edema lower extremities. ASSESSMENT: 1. Status post septic shock. 2. Status post respiratory failure. 3. Colon cancer, status post resection with primary anastomosis complicated by anastomotic leak, status post exploratory laparotomy and drainage of abscesses, partial colectomy with colostomy on 08/05/2017. 4. Pleural effusion, status post thoracentesis. 5. Anemia. 6. Obesity. PLAN: The patient remains stable. She is on appropriate antibiotics. Continue present care, anti-aspiration measures. Follow recommendations of specialists. MANUEL staff Problems: YG TARANGO NP Aug 11, 2017 16:48
[2017-08-11] MEDS ORDERED: FUROSEMIDE 20 MG INJ IV SCH (20:00)
[2017-08-12] VITALS (13 sets, daily range): BP systolic 118–148; BP diastolic 63–76; PULSE 105–124; RESP 16–36
[2017-08-12] MEDS: VANCOMYCIN 1 GM in NS 250 ML IVPB SCH ×2 (00:33→12:25)
[2017-08-12] MEDS: HYDROmorphONE 0.5 MG/0.5 ML SYG IV PRN ×7 (03:03→21:23)
[2017-08-12] MEDS: ALBUMIN HUMAN 25% 100 ML IV SCH ×3 (04:30→21:27)
--- NOTE | 2017-08-12 08:59 | RADRPT ---
PROCEDURE: XR Chest. CLINICAL INDICATION: Shortness of breath TECHNIQUE: Single AP view of the chest was obtained COMPARISON: 08/11/2017 FINDINGS: Increase small to moderate left pleural effusion. Right lung is clear. Heart is borderline enlarged. Right central line with tip terminating over the SVC/RA junction. No acute osseous abnormality. RPTAT: KK IMPRESSION: Increased small to moderate left pleural effusion. Rena Samano Physician Date Time Electronically viewed and signed by Rena Samano Physician on 08/12/2017 08:58 [place]/
[2017-08-12 09:19] LABS: HEMATOCRIT 33.3 % (37.0-47.0); HEMOGLOBIN 10.4 g/dl (12.0-16.0); MEAN CORPUSCULAR HEMOGLOBIN 25.9 pg (29.0-33.0); MEAN CORPUSCULAR HGB CONC 31.2 g/dl (32.0-37.0); MEAN PLATELET VOLUME 10.2 fl (7.4-10.4); NUCLEATED RED BLOOD CELLS% 0.1 /100WBC (0.0-0.0); PLATELET COUNT 722 10^3/UL (140-415); RED BLOOD COUNT 4.01 10^6/ul (4.20-5.40); WHITE BLOOD COUNT 16.6 10^3/ul (4.8-10.8)
[2017-08-12 09:25] LABS: POSITIVE DIFF @See below
[2017-08-12 09:49] LABS: CALCIUM 7.2 mg/dl (8.4-10.2); CREATININE 0.48 mg/dl (0.44-1.00); MAGNESIUM 1.8 mg/dl (1.7-2.5); PHOSPHORUS 2.6 mg/dl (2.5-4.9); POTASSIUM 3.6 mmol/L (3.5-5.1)
[2017-08-12] MEDS: LORATADINE 10 MG TAB NGT SCH (10:04)
[2017-08-12] MEDS: LISINOPRIL 20 MG TAB PO SCH (10:05)
[2017-08-12] MEDS: MEROPENEM 1 GM/50ML(PMX) 50 ML IVPB SCH ×2 (10:05→20:44)
[2017-08-12 10:09] LABS: ANISOCYTOSIS 2+ (0-0); GIANT THROMBO% (M) 1 % (0-0); HYPOCHROMASIA 1+ (0-0); MICROCYTOSIS 2+ (0-0); MONOCYTES % (M) 7 % (0-11); PLATELET ESTIMATE INCREASED; POIKILOCYTOSIS 1+ (0-0); POLYCHROMASIA 3+ (0-0)
--- NOTE | 2017-08-12 10:42 | PN ---
Date/Time of Note Date/Time of Note DATE: 08/12/17 TIME: 10:41 Assessment/Plan VTE Prophylaxis VTE Prophylaxis Intervention: SCD's Lines/Catheters IV Catheter Type (from Nrs): Central Line Central line still needed: Yes Urinary Cath still in place: Yes Reason Cath still needed: urinary retention Assessment/Plan Chief Complaint/Hosp Course 51 yo F with bleeding colon cancer taken to the OR for urgent resection with primary anastomosis postop course was ok and was tolerating clears until she develop afib with RVR and diaphoresis was transferred to the ICU, she developed ileus and emesis, CT scan showed anastomotic leak patient taken to the OR for washout and colostomy placement. was on pressors for one night now off. Problems: Assessment/Plan extubated over the weekend, doing well, still start regular diet no further albumin infusion Subjective 24 Hr Interval Summary Free Text/Dictation patient extubated looks a lot better, still some anasarca due to malnutrition and low albumin Exam/Review of Systems Vital Signs Vitals Vital Signs Date Time Temp Pulse Resp B/P Pulse Ox O2 Delivery O2 Flow Rate FiO2 08/12/17 09:51 Nasal Cannula 08/12/17 08:31 99.1 115 30 124/69 94 08/12/17 00:18 2.0 08/09/17 12:00 30 Intake and Output 08/11/17 08/11/17 08/12/17 14:59 22:59 06:59 Intake Total 1885 ml 1050 ml Output Total 2260 ml 1780 ml Balance -375 ml -730 ml Exam colostomy working well Results Result Diagram: 08/12/17 0906 08/12/17 0905 Results 24 hrs Laboratory Tests Test 08/12/17 09:05 08/12/17 09:06 Sodium Level 137 Potassium Level 3.6 Chloride Level 102 Carbon Dioxide Level 28 Anion Gap 11 Blood Urea Nitrogen 7 Creatinine 0.48 Glucose Level 124 Calcium Level 7.2 L Phosphorus Level 2.6 Magnesium Level 1.8 White Blood Count 16.6 #H Red Blood Count 4.01 L Hemoglobin 10.4 L Hematocrit 33.3 L Mean Corpuscular Volume 83.0 Mean Corpuscular Hemoglobin 25.9 L Mean Corpuscular Hemoglobin Concent 31.2 L Red Cell Distribution Width 22.0 H Platelet Count 722 H Mean Platelet Volume 10.2 Neutrophils % Segmented Neutrophils % (Manual) 69 Band Neutrophils % (Manual) 16 H Lymphocytes % Lymphocytes % (Manual) 8 L Monocytes % Monocytes % (Manual) 7 Eosinophils % Basophils % Nucleated Red Blood Cells % 0.1 H Neutrophils # Neutrophils # (Manual) 11.9 H Band Neutrophils # 2.6 H Absolute Lymphocytes (Manual) 1.3 Lymphocytes # Monocytes # Absolute Monocytes (Manual) 1.1 H Eosinophils # Basophils # Nucleated Red Blood Cells # Platelet Estimate INCREASED Giant Platelets 1 H Polychromasia 3+ Hypochromasia 1+ Poikilocytosis 1+ Anisocytosis 2+ Microcytosis 2+ Medications Medications Current Medications Acetaminophen 650 mg 650 mg Q4H PRN PO pain/fever; Start 07/24/17 at 07:00; Status Future Hold Ondansetron HCl/ Sodium Chloride (Zofran Inj/NS) 54 ml @ 216 mls/hr Q6H PRN IV NAUSEA AND/OR VOMITING Last administered on 08/05/17 03:50; Admin Dose 216 MLS/HR; Start 07/27/17 at 13:00 Phenol (Chloraseptic Throat [place]) 2 spray Q2H PRN MT SORE THROAT Last administered on 07/29/17 18:10; Admin Dose 2 SPRAY; Start 07/29/17 at 13:00 Diphenhydramine HCl (Benadryl) 25 mg Q6H PRN IV SLEEP Last administered on 08/01 00:19; Admin Dose 25 MG; Start 07/31/17 at 13:00 Chlorpromazine (Thorazine) 10 mg Q6 PRN IM HICCUPS Last administered on 21:21; Admin Dose 10 MG; Start 08/02/17 at 06:00 Loratadine (Claritin) 10 mg DAILY NGT Last administered on 08/12/17 10:04; Admin Dose 10 MG; Start 08/04/17 at 09:00 Hydromorphone HCl 0.5 mg 0.5 mg Q2H PRN IV PAIN Last administered on 10:00; Admin Dose 0.5 MG; Start 08/05/17 at 22:30 Meropenem/Sodium Chloride (Merrem 1 Gm/50 ml (Pmx)) 50 ml @ 100 mls/hr Q12 IVPB Last administered on 08/12/17 10:05; Admin Dose 100 MLS/HR; Start at 21:00 Hydralazine HCl 10 mg 10 mg Q6H PRN IV sbp>170 Last administered on 08/09/17 14:18; Admin Dose 10 MG; Start 08/07/17 at 18:00 Vancomycin HCl (Vancocin) 250 ml @ 125 mls/hr Q12H IVPB Last administered on 08/12/17 00:33; Admin Dose 125 MLS/HR; Start 08/08/17 at 12:00 Famotidine (Pepcid Iv) 20 mg BID IV Last administered on 08/11/17 20:42; Admin Dose 20 MG; Start 08/09/17 at 09:00 Lisinopril (Zestril) 20 mg DAILY PO Last administered on 08/12/17 10:05; Admin Dose 20 MG; Start 08/10/17 at 10:30 Acetaminophen (Tylenol Tab) 650 mg Q4H PRN PO PAIN AND OR ELEVATED TEMP; Start 08/10/17 at 10:30 Miscellaneous Information VANCO TROUGH @ 1,100 ON ... ONCE ONCE XX ; Start at 11:00; Stop 08/12/17 at 11:01 Albumin Human (Albumin Human 25%) 100 ml @ 100 mls/hr Q8H IV Last administered on 08/11/17 14:34; Admin Dose 100 MLS/HR; Start 08/11/17 at 12: 30; Stop 08/15/17 at 12:29 Hilario BOTELLO Aug 12, 2017 10:42
--- NOTE | 2017-08-12 11:29 | CONS ---
Date/Time of Note Date/Time of Note DATE: 08/12/17 TIME: 11:28 Consult Date/Type/Reason Admit Date/Time Jul 24, 2017 at 06:16 Initial Consult Date 08/05/17 Type of Consultation: Pulmonary Ordering Provider: RAE CALVO Subjective Patient reluctant to get out of bed. Anxious. Objective Vital Signs Date Time Temp Pulse Resp B/P Pulse Ox O2 Delivery O2 Flow Rate FiO2 08/12/17 09:51 Nasal Cannula 08/12/17 08:31 99.1 115 30 124/69 94 08/12/17 00:18 2.0 08/09/17 12:00 30 Intake and Output 08/11/17 08/11/17 08/12/17 15:00 23:00 07:00 Intake Total 1885 ml 1050 ml Output Total 2260 ml 1780 ml Balance -375 ml -730 ml Exam PHYSICAL EXAMINATION: GENERAL: Well-nourished, well-developed lady, nasal cannula oxygen. VITAL SIGNS: NECK: Supple, no JVD or lymphadenopathy. CARDIAC: S1, S2, no added sounds or murmurs. CHEST: Diminished air entry bilaterally. ABDOMEN: Soft, nontender. No guarding or rebound. EXTREMITIES: No cyanosis, clubbing, 1+ edema. NEUROLOGIC: Generalized weakness Results/Medications Result Diagram: 08/12/1790508/12/17904 Results 24 hrs Chest x-ray Small to moderate left pleural effusion Laboratory Tests Test 08/12/17 09:05 08/12/17 09:06 Sodium Level 137 Potassium Level 3.6 Chloride Level 102 Carbon Dioxide Level 28 Anion Gap 11 Blood Urea Nitrogen 7 Creatinine 0.48 Glucose Level 124 Calcium Level 7.2 L Phosphorus Level 2.6 Magnesium Level 1.8 White Blood Count 16.6 #H Red Blood Count 4.01 L Hemoglobin 10.4 L Hematocrit 33.3 L Mean Corpuscular Volume 83.0 Mean Corpuscular Hemoglobin 25.9 L Mean Corpuscular Hemoglobin Concent 31.2 L Red Cell Distribution Width 22.0 H Platelet Count 722 H Mean Platelet Volume 10.2 Neutrophils % Segmented Neutrophils % (Manual) 69 Band Neutrophils % (Manual) 16 H Lymphocytes % Lymphocytes % (Manual) 8 L Monocytes % Monocytes % (Manual) 7 Eosinophils % Basophils % Nucleated Red Blood Cells % 0.1 H Neutrophils # Neutrophils # (Manual) 11.9 H Band Neutrophils # 2.6 H Absolute Lymphocytes (Manual) 1.3 Lymphocytes # Monocytes # Absolute Monocytes (Manual) 1.1 H Eosinophils # Basophils # Nucleated Red Blood Cells # Platelet Estimate INCREASED Giant Platelets 1 H Polychromasia 3+ Hypochromasia 1+ Poikilocytosis 1+ Anisocytosis 2+ Microcytosis 2+ Medications Current Medications Acetaminophen 650 mg 650 mg Q4H PRN PO pain/fever; Start 07/24/17 at 07:00; Status Future Hold Ondansetron HCl/ Sodium Chloride (Zofran Inj/NS) 54 ml @ 216 mls/hr Q6H PRN IV NAUSEA AND/OR VOMITING Last administered on 08/05/17 03:50; Admin Dose 216 MLS/HR; Start 07/27/17 at 13:00 Phenol (Chloraseptic Throat [place]) 2 spray Q2H PRN MT SORE THROAT Last administered on 07/29/17 18:10; Admin Dose 2 SPRAY; Start 07/29/17 at 13:00 Diphenhydramine HCl (Benadryl) 25 mg Q6H PRN IV SLEEP Last administered on 08/01 00:19; Admin Dose 25 MG; Start 07/31/17 at 13:00 Chlorpromazine (Thorazine) 10 mg Q6 PRN IM HICCUPS Last administered on 21:21; Admin Dose 10 MG; Start 08/02/17 at 06:00 Loratadine (Claritin) 10 mg DAILY NGT Last administered on 08/12/17 10:04; Admin Dose 10 MG; Start 08/04/17 at 09:00 Hydromorphone HCl 0.5 mg 0.5 mg Q2H PRN IV PAIN Last administered on 10:00; Admin Dose 0.5 MG; Start 08/05/17 at 22:30 Meropenem/Sodium Chloride (Merrem 1 Gm/50 ml (Pmx)) 50 ml @ 100 mls/hr Q12 IVPB Last administered on 08/12/17 10:05; Admin Dose 100 MLS/HR; Start at 21:00 Hydralazine HCl 10 mg 10 mg Q6H PRN IV sbp>170 Last administered on 08/09/17 14:18; Admin Dose 10 MG; Start 08/07/17 at 18:00 Vancomycin HCl (Vancocin) 250 ml @ 125 mls/hr Q12H IVPB Last administered on 08/12/17 00:33; Admin Dose 125 MLS/HR; Start 08/08/17 at 12:00 Famotidine (Pepcid Iv) 20 mg BID IV Last administered on 08/11/17 20:42; Admin Dose 20 MG; Start 08/09/17 at 09:00 Lisinopril (Zestril) 20 mg DAILY PO Last administered on 08/12/17 10:05; Admin Dose 20 MG; Start 08/10/17 at 10:30 Acetaminophen 650 mg 650 mg Q4H PRN PO PAIN AND OR ELEVATED TEMP; Start at 10:30 Albumin Human (Albumin Human 25%) 100 ml @ 100 mls/hr Q8H IV Last administered on 08/11/17 14:34; Admin Dose 100 MLS/HR; Start 08/11/17 at 12: 30; Stop 08/15/17 at 12:29 Assessment/Plan Chief Complaint/Hosp Course IMPRESSION 1. Status post exploratory laparotomy and now ileostomy. 2. Recent bowel resection for colon carcinoma. 3. History of atrial fibrillation, congestive cardiac failure. 4. Hypoxemic respiratory failure with left pleural effusion 5. Hypernatremia PLAN: 1. Continue incentive spirometry. Hold off on thoracentesis of left lung for now. 2. Bronchodilators as needed 3. Continue postop surgical recommendations including nasogastric tube suction. 4. Deep venous thrombosis and gastrointestinal prophylaxis. 5. Continue antibiotics. 6. PT eval encourage out of bed if tolerated Advance diet per general surgery., Problems: YONATAN MAC MD, FCCP Aug 12, 2017 11:29
[2017-08-12] MEDS ORDERED: ONDANSETRON INJ 8 MG in DEXTROSE 5% 50 ML IV PRN ×4 (12:30)
[2017-08-12] MEDS: FAMOTIDINE 20 MG INJ IV SCH ×2 (12:48→20:45)
--- NOTE | 2017-08-12 13:00 | CONS ---
Date/Time of Note Date/Time of Note DATE: 08/12/17 TIME: 12:57 Consult Date/Type/Reason Admit Date/Time Jul 24, 2017 at 06:16 Initial Consult Date 08/05/17 Type of Consultation: ID Ordering Provider: RAE CALVO Objective Vital Signs Date Time Temp Pulse Resp B/P Pulse Ox O2 Delivery O2 Flow Rate FiO2 08/12/17 12:20 98.8 112 30 118/63 94 Nasal Cannula 1.0 08/09/17 12:00 30 Intake and Output 08/11/17 08/11/17 08/12/17 15:00 23:00 07:00 Intake Total 1885 ml 1050 ml Output Total 2260 ml 1780 ml Balance -375 ml -730 ml Results/Medications Result Diagram: 08/12/17 0906 08/12/17 0905 Results 24 hrs Laboratory Tests Test 08/12/17 09:05 08/12/17 09:06 08/12/17 10:46 Sodium Level 137 Potassium Level 3.6 Chloride Level 102 Carbon Dioxide Level 28 Anion Gap 11 Blood Urea Nitrogen 7 Creatinine 0.48 Glucose Level 124 Calcium Level 7.2 L Phosphorus Level 2.6 Magnesium Level 1.8 White Blood Count 16.6 #H Red Blood Count 4.01 L Hemoglobin 10.4 L Hematocrit 33.3 L Mean Corpuscular Volume 83.0 Mean Corpuscular Hemoglobin 25.9 L Mean Corpuscular Hemoglobin Concent 31.2 L Red Cell Distribution Width 22.0 H Platelet Count 722 H Mean Platelet Volume 10.2 Neutrophils % Segmented Neutrophils % (Manual) 69 Band Neutrophils % (Manual) 16 H Lymphocytes % Lymphocytes % (Manual) 8 L Monocytes % Monocytes % (Manual) 7 Eosinophils % Basophils % Nucleated Red Blood Cells % 0.1 H Neutrophils # Neutrophils # (Manual) 11.9 H Band Neutrophils # 2.6 H Absolute Lymphocytes (Manual) 1.3 Lymphocytes # Monocytes # Absolute Monocytes (Manual) 1.1 H Eosinophils # Basophils # Nucleated Red Blood Cells # Platelet Estimate INCREASED Giant Platelets 1 H Polychromasia 3+ Hypochromasia 1+ Poikilocytosis 1+ Anisocytosis 2+ Microcytosis 2+ Vancomycin Level Trough 9.5 L Medications Current Medications Acetaminophen (Tylenol Tab) 650 mg Q4H PRN PO pain/fever; Start 07/24/17 at 07 :00; Status Future Hold Phenol (Chloraseptic Throat [place]) 2 spray Q2H PRN MT SORE THROAT Last administered on 07/29/17 18:10; Admin Dose 2 SPRAY; Start 07/29/17 at 13:00 Diphenhydramine HCl (Benadryl) 25 mg Q6H PRN IV SLEEP Last administered on 08/01 00:19; Admin Dose 25 MG; Start 07/31/17 at 13:00 Chlorpromazine (Thorazine) 10 mg Q6 PRN IM HICCUPS Last administered on 21:21; Admin Dose 10 MG; Start 08/02/17 at 06:00 Loratadine (Claritin) 10 mg DAILY NGT Last administered on 08/12/17 10:04; Admin Dose 10 MG; Start 08/04/17 at 09:00 Hydromorphone HCl 0.5 mg 0.5 mg Q2H PRN IV PAIN Last administered on 12:49; Admin Dose 0.5 MG; Start 08/05/17 at 22:30 Meropenem/Sodium Chloride (Merrem 1 Gm/50 ml (Pmx)) 50 ml @ 100 mls/hr Q12 IVPB Last administered on 08/12/17 10:05; Admin Dose 100 MLS/HR; Start at 21:00 Hydralazine HCl 10 mg 10 mg Q6H PRN IV sbp>170 Last administered on 08/09/17 14:18; Admin Dose 10 MG; Start 08/07/17 at 18:00 Vancomycin HCl (Vancocin) 250 ml @ 125 mls/hr Q12H IVPB Last administered on 08/12/17 12:25; Admin Dose 125 MLS/HR; Start 08/08/17 at 12:00 Famotidine (Pepcid Iv) 20 mg BID IV Last administered on 08/12/17 12:48; Admin Dose 20 MG; Start 08/09/17 at 09:00 Lisinopril (Zestril) 20 mg DAILY PO Last administered on 08/12/17 10:05; Admin Dose 20 MG; Start 08/10/17 at 10:30 Acetaminophen 650 mg 650 mg Q4H PRN PO PAIN AND OR ELEVATED TEMP; Start at 10:30 Albumin Human (Albumin Human 25%) 100 ml @ 100 mls/hr Q8H IV Last administered on 08/11/17t 14:34; Admin Dose 100 MLS/HR; Start 08/11/17 at 12: 30; Stop 08/15/17 at 12:29 Ondansetron HCl (Zofran Inj) 4 mg Q6H PRN IV NAUSEA AND/OR VOMITING; Start at 13:00 Assessment/Plan Chief Complaint/Hosp Course SUBJECTIVE: No acute changes overnight. Awake, looks comfortable, afebrile MICROBIOLOGY: Abdominal wound culture on admission on 08/05 grew E. coli, enterococcus species and oxacillin-sensitive Staphylococcus aureus. Aerobic cultures grew Bacteroides fragilis; fluid cultures have been negative. INDWELLINGS: The patient has Leal, right IJ triple-lumen catheter. ANTIMICROBIALS: 1. Vancomycin. 2. Merrem. ALLERGIES: 1. PENICILLIN. 2. SULFA. 3. AMOXICILLIN. PHYSICAL EXAMINATION: GENERAL: This is an obese, well-developed, middle-aged white woman who is alert , in no distress. HEENT: Head atraumatic, normocephalic. Sclerae anicteric. Buccal mucosa dry. NECK: Supple. CHEST: Rise symmetrical. Breath sounds diminished to bases. HEART: S1, S2. ABDOMEN: Soft, bowel tones present. EXTREMITIES: With bilateral edema lower extremities. ASSESSMENT: 1. Status post septic shock. 2. Status post respiratory failure. 3. Colon cancer, status post resection with primary anastomosis complicated by anastomotic leak, status post exploratory laparotomy and drainage of abscesses, partial colectomy with colostomy on 08/05/2017. 4. Left pleural effusion, status post thoracentesis. 5. Anemia. 6. Obesity. PLAN: The patient remains stable. She is on appropriate antibiotics. WBC increasing, no fevers, cxr noted. Continue present care, anti-aspiration measures. Follow recommendations of specialists, no thoracentesis for now. Repeat cx's DW staff Problems: YG TARANGO NP Aug 12, 2017 13:00
--- NOTE | 2017-08-12 13:30 | PN ---
Date/Time of Note Date/Time of Note DATE: 08/12/17 TIME: 13:02 Assessment/Plan VTE Prophylaxis VTE Prophylaxis Intervention: SCD's Lines/Catheters IV Catheter Type (from Nrs): Central Line Central line still needed: Yes (Right IJ) Urinary Cath still in place: Yes Reason Cath still needed: other (indicate) (Diuresis, acute kidney injury) Assessment/Plan Assessment/Plan 51 year old female with: 1. Postop anastomotic leak with sepsis, status post ex lap with drainage of abscesses, drain placement, partial colectomy and colostomy POD#7 Status post Left hemicolectomy for sigmoid adenocarcinoma/mass POD#15 Intraoperative/intraperitoneal cultures positive for E. coli, enterococcus, staph aureus. Patient on appropriate antibiotics based on previous cultures, however she is noted to have recurrent leukocytosis with bandemia. Discussed with infectious disease, blood cultures, UA and urine culture be repeated. Further antibiotic adjustment per infectious disease. She remains afebrile Patient apparently advanced to regular diet per Dr. Aldana. Trying to encourage physical therapy and out of bed to chair at least. Patient limited by significant anasarca and volume overload. 2. S/p Acute respiratory failure, patient extubated over the weekend. Currently on telemetry bed. Still with volume overload requiring diuresis with the albumin on board Chest x-ray with again mild to moderate pleural effusion. Appreciate recommendations from nephrology and pulmonary. On IV antibiotics. Diuresis 3. Atrial fibrillation, chronic, currently remains in sinus rhythm in the 80s. Off amiodarone drip and digoxin. Appreciate cardiology recommendations. Anticoagulation discontinued, discussed with cardiology for now will just leave her off anticoagulation for the remainder of her postoperative course. Electrolyte repletion as needed. 4. Chronic congestive heart failure, chronic diastolic dysfunction and ejection fraction of 55% on latest outpatient echocardiogram in January 2017 and confirmed to be 50% on this admission. Currently in volume overload, left thoracentesis was done last week, patient has been started on albumin with Lasix being administered. Still in volume overload. 5. Acute kidney injury, in setting of sepsis, also had the contrast studies 2. Resolved, renal function back to normal. Leal catheter in place. Adequate urine output, patient of fluids, getting albumin and Lasix to optimize diuresis. Follow-up recommendations from nephrology, Dr. Kiser 6. Anemia, acute on chronic, postop: s/p 2 units of packed red blood cells last week, hemoglobin has remained stable so far. 7. Hypertension, all antihypertensive on hold in setting of sepsis Prophylaxis: Off anticoagulation, SCDs, Pepcid for GI prophylaxis. Disposition: Continue volume management, renal function back to normal. Continue IV antibiotics. Blood cultures, UA and urine cultures ordered, follow up further recommendation from nephrology. Subjective 24 Hr Interval Summary Free Text/Dictation Patient noted to have recurrent leukocytosis with bandemia. No fevers. Blood cultures, UA and urine culture ordered, may need to repeat CAT scan abdomen and pelvis per infectious disease, currently on appropriate antibiotics based on previous cultures. Monitor closely. Patient with significant anasarca also. Exam/Review of Systems Vital Signs Vitals Vital Signs Date Time Temp Pulse Resp B/P Pulse Ox O2 Delivery O2 Flow Rate FiO2 08/12/17 12:20 98.8 112 30 118/63 94 Nasal Cannula 1.0 08/09/17 12:00 30 Intake and Output 08/11/17 08/11/17 08/12/17 14:59 22:59 06:59 Intake Total 1885 ml 1050 ml Output Total 2260 ml 1780 ml Balance -375 ml -730 ml Exam Constitutional: alert, oriented, well developed Respiratory: diminished breath sounds (At the bases more pronounced left lower lobe), normal air movement Cardiovascular: nl pulses, regular rate and rhythm Gastrointestinal: non-tender, soft Musculoskeletal: swelling (Diffuse anasarca) Extremities: normal pulses, other (+4 anasarca, diffuse.) Neurological: BASE [employer] 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 II-XII intact, nl mental status, other (Easily dyspneic even with speech) Results Result Diagram: 08/12/1790508/12/17 0905 Results 24 hrs Laboratory Tests Test 08/12/17 09:05 08/12/17 09:06 08/12/17 10:46 Sodium Level 137 Potassium Level 3.6 Chloride Level 102 Carbon Dioxide Level 28 Anion Gap 11 Blood Urea Nitrogen 7 Creatinine 0.48 Glucose Level 124 Calcium Level 7.2 L Phosphorus Level 2.6 Magnesium Level 1.8 White Blood Count 16.6 #H Red Blood Count 4.01 L Hemoglobin 10.4 L Hematocrit 33.3 L Mean Corpuscular Volume 83.0 Mean Corpuscular Hemoglobin 25.9 L Mean Corpuscular Hemoglobin Concent 31.2 L Red Cell Distribution Width 22.0 H Platelet Count 722 H Mean Platelet Volume 10.2 Neutrophils % Segmented Neutrophils % (Manual) 69 Band Neutrophils % (Manual) 16 H Lymphocytes % Lymphocytes % (Manual) 8 L Monocytes % Monocytes % (Manual) 7 Eosinophils % Basophils % Nucleated Red Blood Cells % 0.1 H Neutrophils # Neutrophils # (Manual) 11.9 H Band Neutrophils # 2.6 H Absolute Lymphocytes (Manual) 1.3 Lymphocytes # Monocytes # Absolute Monocytes (Manual) 1.1 H Eosinophils # Basophils # Nucleated Red Blood Cells # Platelet Estimate INCREASED Giant Platelets 1 H Polychromasia 3+ Hypochromasia 1+ Poikilocytosis 1+ Anisocytosis 2+ Microcytosis 2+ Vancomycin Level Trough 9.5 L Imaging Free Text/Dictation PROCEDURE: XR Chest. CLINICAL INDICATION: Shortness of breath TECHNIQUE: Single AP view of the chest was obtained COMPARISON: 08/11/2017 FINDINGS: Increase small to moderate left pleural effusion. Right lung is clear. Heart is borderline enlarged. Right central line with tip terminating over the SVC/RA junction. No acute osseous abnormality. RPTAT: KK IMPRESSION: Increased small to moderate left pleural effusion. Physician Samuel Date Time Electronically viewed and signed by Rena Samano Physician on 08/12/2017 08 :58 ME/ Medications Medications Current Medications Acetaminophen (Tylenol Tab) 650 mg Q4H PRN PO pain/fever; Start 07/24/17 at 07 :00; Status Future Hold Phenol (Chloraseptic Throat [place]) 2 spray Q2H PRN MT SORE THROAT Last administered on 07/29/17 18:10; Admin Dose 2 SPRAY; Start 07/29/17 at 13:00 Diphenhydramine HCl (Benadryl) 25 mg Q6H PRN IV SLEEP Last administered on 08/01 00:19; Admin Dose 25 MG; Start 07/31/17 at 13:00 Chlorpromazine (Thorazine) 10 mg Q6 PRN IM HICCUPS Last administered on 21:21; Admin Dose 10 MG; Start 08/02/17 at 06:00 Loratadine (Claritin) 10 mg DAILY NGT Last administered on 08/12/17 10:04; Admin Dose 10 MG; Start 08/04/17 at 09:00 Hydromorphone HCl 0.5 mg 0.5 mg Q2H PRN IV PAIN Last administered on 12:49; Admin Dose 0.5 MG; Start 08/05/17 at 22:30 Meropenem/Sodium Chloride (Merrem 1 Gm/50 ml (Pmx)) 50 ml @ 100 mls/hr Q12 IVPB Last administered on 08/12/17 10:05; Admin Dose 100 MLS/HR; Start at 21:00 Hydralazine HCl 10 mg 10 mg Q6H PRN IV sbp>170 Last administered on 08/09/17 14:18; Admin Dose 10 MG; Start 08/07/17 at 18:00 Vancomycin HCl (Vancocin) 250 ml @ 125 mls/hr Q12H IVPB Last administered on 08/12/17 12:25; Admin Dose 125 MLS/HR; Start 08/08/17 at 12:00 Famotidine (Pepcid Iv) 20 mg BID IV Last administered on 08/12/17 12:48; Admin Dose 20 MG; Start 08/09/17 at 09:00 Lisinopril (Zestril) 20 mg DAILY PO Last administered on 08/12/17 10:05; Admin Dose 20 MG; Start 08/10/17 at 10:30 Acetaminophen 650 mg 650 mg Q4H PRN PO PAIN AND OR ELEVATED TEMP; Start at 10:30 Albumin Human (Albumin Human 25%) 100 ml @ 100 mls/hr Q8H IV Last administered on 08/11/17 14:34; Admin Dose 100 MLS/HR; Start 08/11/17 at 12: 30; Stop 08/15/17 at 12:29 Ondansetron HCl (Zofran Inj) 4 mg Q6H PRN IV NAUSEA AND/OR VOMITING; Start at 13:00 RAE CALVO Aug 12, 2017 13:12
--- NOTE | 2017-08-12 14:06 | CONS ---
Date/Time of Note Date/Time of Note DATE: 08/12/17 TIME: 14:01 Assessment/Plan Assessment/Plan Additional Assessment/Plan Paroxysmal atrial fibrillation with rapid ventricular rates, currently sinus Acute decompensated systolic and diastolic congestive heart failure Low normal ejection fraction 50% Colon mass status post colon surgery July 26, 2017 and repeat August 05, 2017 Acute kidney injury, improved Sepsis Vent dependent respiratory failure, status post extubation -Patient remains in sinus rhythm. If episodes of recurrent atrial fibrillation , would restart IV amiodarone. Patient with evidence of edema and pleural effusion on chest x-ray. Will order 1 dose of IV Bumex now, consider initiation of standing IV diuretics if okay by our nephrology colleagues, maintain potassium above 4.0 and magnesium above 2.0 Consultation Date/Type/Reason Admit Date/Time Jul 24, 2017 at 06:16 Initial Consult Date 07/29/17 Type of Consultation: cv Referring Provider: RAE CALVO 24 HR Interval Summary Free Text/Dictation Patient still with intermittent shortness of breath. Denies palpitations, abdominal pain has improved Exam/Review of Systems Vital Signs Vitals Vital Signs Date Time Temp Pulse Resp B/P Pulse Ox O2 Delivery O2 Flow Rate FiO2 08/12/17 12:20 98.8 112 30 118/63 94 Nasal Cannula 1.0 08/09/17 12:00 30 Intake and Output 08/11/17 08/11/17 08/12/17 15:00 23:00 07:00 Intake Total 1885 ml 1050 ml Output Total 2260 ml 1780 ml Balance -375 ml -730 ml Exam No apparent distress Constitutional: alert, oriented Head: normocephalic Respiratory: other (Coarse breath sounds bilaterally, no wheezing) Cardiovascular: other (S1-S2 heard), regular rate and rhythm Gastrointestinal: bowel sounds, soft Extremities: edema Results Result Diagram: 08/12/17 0906 08/12/17 0905 Results 24 hrs Laboratory Tests Test 08/12/17 09:05 08/12/17 09:06 08/12/17 10:46 Sodium Level 137 Potassium Level 3.6 Chloride Level 102 Carbon Dioxide Level 28 Anion Gap 11 Blood Urea Nitrogen 7 Creatinine 0.48 Glucose Level 124 Calcium Level 7.2 L Phosphorus Level 2.6 Magnesium Level 1.8 White Blood Count 16.6 #H Red Blood Count 4.01 L Hemoglobin 10.4 L Hematocrit 33.3 L Mean Corpuscular Volume 83.0 Mean Corpuscular Hemoglobin 25.9 L Mean Corpuscular Hemoglobin Concent 31.2 L Red Cell Distribution Width 22.0 H Platelet Count 722 H Mean Platelet Volume 10.2 Neutrophils % Segmented Neutrophils % (Manual) 69 Band Neutrophils % (Manual) 16 H Lymphocytes % Lymphocytes % (Manual) 8 L Monocytes % Monocytes % (Manual) 7 Eosinophils % Basophils % Nucleated Red Blood Cells % 0.1 H Neutrophils # Neutrophils # (Manual) 11.9 H Band Neutrophils # 2.6 H Absolute Lymphocytes (Manual) 1.3 Lymphocytes # Monocytes # Absolute Monocytes (Manual) 1.1 H Eosinophils # Basophils # Nucleated Red Blood Cells # Platelet Estimate INCREASED Giant Platelets 1 H Polychromasia 3+ Hypochromasia 1+ Poikilocytosis 1+ Anisocytosis 2+ Microcytosis 2+ Vancomycin Level Trough 9.5 L Medications Medications Current Medications Acetaminophen (Tylenol Tab) 650 mg Q4H PRN PO pain/fever; Start 07/24/17 at 07 :00; Status Future Hold Phenol (Chloraseptic Throat [place]) 2 spray Q2H PRN MT SORE THROAT Last administered on 07/29/17 18:10; Admin Dose 2 SPRAY; Start 07/29/17 at 13:00 Diphenhydramine HCl (Benadryl) 25 mg Q6H PRN IV SLEEP Last administered on 08/01 00:19; Admin Dose 25 MG; Start 07/31/17 at 13:00 Chlorpromazine (Thorazine) 10 mg Q6 PRN IM HICCUPS Last administered on 21:21; Admin Dose 10 MG; Start 08/02/17 at 06:00 Loratadine (Claritin) 10 mg DAILY NGT Last administered on 08/12/17 10:04; Admin Dose 10 MG; Start 08/04/17 at 09:00 Hydromorphone HCl 0.5 mg 0.5 mg Q2H PRN IV PAIN Last administered on 12:49; Admin Dose 0.5 MG; Start 08/05/17 at 22:30 Meropenem/Sodium Chloride (Merrem 1 Gm/50 ml (Pmx)) 50 ml @ 100 mls/hr Q12 IVPB Last administered on 08/12/17 10:05; Admin Dose 100 MLS/HR; Start at 21:00 Hydralazine HCl (Apresoline) 10 mg Q6H PRN IV sbp>170 Last administered on 14:18; Admin Dose 10 MG; Start 08/07/17 at 18:00 Famotidine (Pepcid Iv) 20 mg BID IV Last administered on 08/12/17 12:48; Admin Dose 20 MG; Start 08/09/17 at 09:00 Lisinopril (Zestril) 20 mg DAILY PO Last administered on 08/12/17 10:05; Admin Dose 20 MG; Start 08/10/17 at 10:30 Acetaminophen 650 mg 650 mg Q4H PRN PO PAIN AND OR ELEVATED TEMP; Start at 10:30 Albumin Human (Albumin Human 25%) 100 ml @ 100 mls/hr Q8H IV Last administered on 08/11/17 14:34; Admin Dose 100 MLS/HR; Start 08/11/17 at 12: 30; Stop 08/15/17 at 12:29 Ondansetron HCl (Zofran Inj) 4 mg Q6H PRN IV NAUSEA AND/OR VOMITING; Start at 13:00 Fercho Mojica DO Aug 12, 2017 14:06
[2017-08-12] MEDS ORDERED: POTASSIUM CHLORIDE 20 MEQ POWDER FOR ORAL SOLN PO ONE (14:30)
[2017-08-12] MEDS ORDERED: BUMETANIDE 1 MG INJ IV ONE (14:30)
[2017-08-12] MEDS ORDERED: MAGNESIUM SULFATE 2 GM/50 ML 50 ML IVPB ONE (14:30)
[2017-08-12] MEDS: ONDANSETRON 4 MG INJ IV PRN (15:44)
[2017-08-12 18:17] LABS: ADD UMIC YES; UR AMORPHOUS CRYSTAL MODERATE /HPF (NONE SEEN); UR ASCORBIC ACID NEGATIVE (NEGATIVE); UR BILIRUBIN (Dip) NEGATIVE (NEGATIVE); UR BLOOD (Dip) 3+ mg/dL (NEGATIVE); UR CLARITY TURBID (CLEAR); UR COLOR RED (YELLOW); UR GLUCOSE (Dip) 2+ mg/dL (NEGATIVE); UR KETONES (Dip) NEGATIVE (NEGATIVE); UR LEUKOCYTE ESTERASE (Dip) NEGATIVE Leu/ul (NEGATIVE); UR MUCUS FEW /HPF (NONE SEEN); UR NITRITE (Dip) NEGATIVE (NEGATIVE); UR RBC > 182 /HPF (0-5); UR SPECIFIC GRAVITY (Dip) 1.028 (1.003-1.030); UR TOTAL PROTEIN (Dip) 2+ mg/dl (NEGATIVE); UR UROBILINOGEN (Dip) NEGATIVE (NEGATIVE)
--- NOTE | 2017-08-12 21:16 | CONS ---
Date/Time of Note Date/Time of Note DATE: 08/12/17 TIME: 21:13 Assessment/Plan Assessment/Plan Additional Assessment/Plan 1. Oliguric EJ due to ATN from Shock- Multifactorial septic from peritonitis + Hemorrhagic- Improving, making good urine 2. Acute hyperkalemia due to EJ- Resolved 3. Metabolic acidosis with lactic acidosis- Improved much better, 4. acute resp failure, possible Asp PNA vs HCAP - pt remained on ventilator post operatively ,s/p US throacentesis 400 cc removed from left chest 5. Septic shock requiring pressors, now off levophed 6. Status post Left hemicolectomy for sigmoid adenocarcinoma/mass POD#7, s/p total of 4 units pRBC since admission. - again pt underwent Exploratory laparotomy with intra- abdominal abscess drainage, Placement of percutaneous Maurisio drains #19 x2. , Partial colectomy.Formation of end colostomy with Corona's pouch. on 08/05/17 7. Atrial fibrillation 8. Chronic diastolic heart failure with EF 55% 9. Hypocalcemia with hypoalbuminemia 10. Hypernatremia - resolved with D5W Plan: - s/p extubation - s/p Thoracentesis 400 cc drained, - s/p lasix yesterday made good urine output -Urine output 3.1 L/24 hrs will continue to follow up along with other subspecialist Consultation Date/Type/Reason Admit Date/Time Jul 24, 2017 at 06:16 Initial Consult Date 08/05/17 Type of Consultation: NEPHROLOGY Referring Provider: RAE CALVO Exam/Review of Systems Vital Signs Vitals Vital Signs Date Time Temp Pulse Resp B/P Pulse Ox O2 Delivery O2 Flow Rate FiO2 08/12/17 20:14 97.7 105 16 148/63 96 08/12/17 15:08 2.0 08/12/17 14:28 Nasal Cannula 08/09/17 12:00 30 Intake and Output 08/11/17 08/11/17 08/12/17 15:00 23:00 07:00 Intake Total 1885 ml 1050 ml Output Total 2260 ml 1780 ml Balance -375 ml -730 ml Exam GENERAL: This is an obese, well-developed, middle-aged white woman who is alert , in no distress. HEENT: Head atraumatic, normocephalic. Sclerae anicteric. Buccal mucosa dry. NECK: Supple. CHEST: Rise symmetrical. Breath sounds diminished to bases. HEART: S1, S2. ABDOMEN: Soft, bowel tones present. EXTREMITIES: With bilateral edema lower extremities. Results Result Diagram: 08/12/17 0906 08/12/17 0905 Results 24 hrs Laboratory Tests Test 08/12/17 09:05 08/12/17 09:06 08/12/17 10:46 08/12/17 14:50 Sodium Level 137 Potassium Level 3.6 Chloride Level 102 Carbon Dioxide Level 28 Anion Gap 11 Blood Urea Nitrogen 7 Creatinine 0.48 Glucose Level 124 Calcium Level 7.2 L Phosphorus Level 2.6 Magnesium Level 1.8 White Blood Count 16.6 #H Red Blood Count 4.01 L Hemoglobin 10.4 L Hematocrit 33.3 L Mean Corpuscular Volume 83.0 Mean Corpuscular Hemoglobin 25.9 L Mean Corpuscular Hemoglobin Concent 31.2 L Red Cell Distribution Width 22.0 H Platelet Count 722 H Mean Platelet Volume 10.2 Neutrophils % Segmented Neutrophils % (Manual) 69 Band Neutrophils % (Manual) 16 H Lymphocytes % Lymphocytes % (Manual) 8 L Monocytes % Monocytes % (Manual) 7 Eosinophils % Basophils % Nucleated Red Blood Cells % 0.1 H Neutrophils # Neutrophils # (Manual) 11.9 H Band Neutrophils # 2.6 H Absolute Lymphocytes (Manual) 1.3 Lymphocytes # Monocytes # Absolute Monocytes (Manual) 1.1 H Eosinophils # Basophils # Nucleated Red Blood Cells # Platelet Estimate INCREASED Giant Platelets 1 H Polychromasia 3+ Hypochromasia 1+ Poikilocytosis 1+ Anisocytosis 2+ Microcytosis 2+ Vancomycin Level Trough 9.5 L Urine Color RED Urine Clarity TURBID A Urine pH 5.0 Urine Specific [place] 1.028 Urine Ketones NEGATIVE Urine Nitrite NEGATIVE Urine Bilirubin NEGATIVE Urine Urobilinogen NEGATIVE Urine Leukocyte Esterase NEGATIVE Urine Microscopic RBC > 182 H Urine Microscopic WBC 3 Urine Amorphous Crystals MODERATE Urine Mucus FEW A Urine Hemoglobin 3+ H Urine Glucose 2+ H Urine Total Protein 2+ H Medications Medications Current Medications Acetaminophen (Tylenol Tab) 650 mg Q4H PRN PO pain/fever; Start 07/24/17 at 07 :00; Status Future Hold Phenol (Chloraseptic Throat [place]) 2 spray Q2H PRN MT SORE THROAT Last administered on 07/29/17t 18:10; Admin Dose 2 SPRAY; Start 07/29/17 at 13:00 Diphenhydramine HCl (Benadryl) 25 mg Q6H PRN IV SLEEP Last administered on 08/01 00:19; Admin Dose 25 MG; Start 07/31/17 at 13:00 Chlorpromazine (Thorazine) 10 mg Q6 PRN IM HICCUPS Last administered on 21:21; Admin Dose 10 MG; Start 08/02/17 at 06:00 Loratadine (Claritin) 10 mg DAILY NGT Last administered on 08/12/17 10:04; Admin Dose 10 MG; Start 08/04/17 at 09:00 Hydromorphone HCl 0.5 mg 0.5 mg Q2H PRN IV PAIN Last administered on 19:06; Admin Dose 0.5 MG; Start 08/05/17 at 22:30 Meropenem/Sodium Chloride (Merrem 1 Gm/50 ml (Pmx)) 50 ml @ 100 mls/hr Q12 IVPB Last administered on 08/12/17 20:44; Admin Dose 100 MLS/HR; Start at 21:00 Hydralazine HCl (Apresoline) 10 mg Q6H PRN IV sbp>170 Last administered on 14:18; Admin Dose 10 MG; Start 08/07/17 at 18:00 Famotidine (Pepcid Iv) 20 mg BID IV Last administered on 08/12/17 20:45; Admin Dose 20 MG; Start 08/09/17 at 09:00 Lisinopril (Zestril) 20 mg DAILY PO Last administered on 08/12/17 10:05; Admin Dose 20 MG; Start 08/10/17 at 10:30 Acetaminophen 650 mg 650 mg Q4H PRN PO PAIN AND OR ELEVATED TEMP; Start at 10:30 Albumin Human (Albumin Human 25%) 100 ml @ 100 mls/hr Q8H IV Last administered on 08/12/17 15:51; Admin Dose 100 MLS/HR; Start 08/11/17 at 12: 30; Stop 08/15/17 at 12:29 Ondansetron HCl 4 mg 4 mg Q6H PRN IV NAUSEA AND/OR VOMITING Last administered on 08/12/17t 15:44; Admin Dose 4 MG; Start 08/12/17 at 13:00 Vancomycin HCl/ Sodium Chloride (Vancocin/NS) 250 ml @ 83.333 mls/ hr Q12H IVPB ; Start 08/13/17 at 00:00 MEKA ROBERTSON MD Aug 12, 2017 21:16
[2017-08-13] VITALS (11 sets, daily range): BP systolic 113–125; BP diastolic 56–68; PULSE 95–105; RESP 18–20
[2017-08-13] MEDS: VANCOMYCIN 1.25 GM in SOD CHLORIDE 0.9% 250 ML IVPB SCH ×3 (00:50→23:43)
[2017-08-13] MEDS: HYDROmorphONE 0.5 MG/0.5 ML SYG IV PRN ×8 (00:50→22:40)
[2017-08-13] MEDS: ONDANSETRON 4 MG INJ IV PRN ×3 (05:19→20:12)
[2017-08-13] MEDS: ALBUMIN HUMAN 25% 100 ML IV SCH ×3 (05:19→20:27)
[2017-08-13 08:59] LABS: ABNORMAL IP MESSAGE 1; BASOPHILS % 0.1 % (0.0-2.0); EOSINOPHILS # 0.1 10^3/ul (0.0-0.5); HEMATOCRIT 26.8 % (37.0-47.0); HEMOGLOBIN 8.3 g/dl (12.0-16.0); LYMPHOCYTES # 1.1 10^3/ul (0.8-2.9); MEAN CORPUSCULAR HEMOGLOBIN 26.2 pg (29.0-33.0); MEAN CORPUSCULAR VOLUME 84.5 fl (82.0-101.0); MEAN PLATELET VOLUME 10.2 fl (7.4-10.4); MONOCYTES % 7.2 % (0.0-11.0); NEUTROPHIL # 11.8 10^3/ul (1.6-7.5); NEUTROPHILS % 82.9 % (39.0-77.0); RED BLOOD COUNT 3.17 10^6/ul (4.20-5.40); RED CELL DISTRIBUTION WIDTH 22.3 % (11.5-14.5); WHITE BLOOD COUNT 14.2 10^3/ul (4.8-10.8)
[2017-08-13 09:10] LABS: PLATELET COUNT 629 10^3/UL (140-415)
[2017-08-13 09:18] LABS: MAGNESIUM 2.1 mg/dl (1.7-2.5); PHOSPHORUS 2.6 mg/dl (2.5-4.9)
[2017-08-13 09:20] LABS: ALBUMIN 2.5 g/dl (3.3-4.9); BILIRUBIN,INDIRECT 0.8 mg/dl (0-1.1); BILIRUBIN,TOTAL 0.8 mg/dl (0.2-1.3); CALCIUM 7.6 mg/dl (8.4-10.2); CREATININE 0.47 mg/dl (0.44-1.00); POTASSIUM 3.8 mmol/L (3.5-5.1)
[2017-08-13] MEDS: LORATADINE 10 MG TAB NGT SCH (09:22)
[2017-08-13] MEDS: MEROPENEM 1 GM/50ML(PMX) 50 ML IVPB SCH ×2 (09:22→21:18)
[2017-08-13] MEDS: FAMOTIDINE 20 MG INJ IV SCH ×2 (09:22→20:11)
[2017-08-13] MEDS: LISINOPRIL 20 MG TAB PO SCH (09:23)
[2017-08-13] MEDS ORDERED: BUMETANIDE 12 MG in DEXTROSE 5% 72 ML IV ONE (10:15)
--- NOTE | 2017-08-13 10:53 | CONS ---
Date/Time of Note Date/Time of Note DATE: 08/13/17 TIME: 10:51 Assessment/Plan Assessment/Plan Additional Assessment/Plan Assessment and recommendations; 1. Patient admitted with bowel obstruction status post laparotomy for colon cancer. 2. Generalized weakness with interval improvement. 3. Small left pleural effusion. Likely sympathetic. Continue current treatment. Consultation Date/Type/Reason Admit Date/Time Jul 24, 2017 at 06:16 Initial Consult Date 08/05/17 Type of Consultation: Pulmonary Referring Provider: RAE CALVO 24 HR Interval Summary Free Text/Dictation Patient's condition is stable. Denies any shortness of breath any coughing or wheezing. Patient was able to sit on the edge of the bed yesterday. She is complaining of weakness in lower extremities and is reluctant to walk. Denies any nausea or vomiting. Denies any abdominal pain. General exam; young woman, awake and alert. Currently in no distress. Exam/Review of Systems Vital Signs Vitals Vital Signs Date Time Temp Pulse Resp B/P Pulse Ox O2 Delivery O2 Flow Rate FiO2 08/13/17 08:02 96 08/13/17 07:49 98.0 18 120/60 93 08/13/17 05:58 2.0 08/13/17 04:00 Nasal Cannula 08/09/17 12:00 30 Intake and Output 08/12/17 08/12/17 08/13/17 15:00 23:00 07:00 Intake Total 1300 ml 1350 ml Output Total 100 ml 1180 ml 650 ml Balance -100 ml 120 ml 700 ml Exam HEENT exam; supple neck, no JVD. No lymphadenopathy. Midline trachea. No thyromegaly. Patient has fair dentition. Neck Chest exam; diminished but clear breath sounds. S1-S2 audible, no murmurs. Regular rhythm. Abdomen exam; soft, ileostomy in place. Bowel sounds audible. There is a healing laparotomy scar present. No organomegaly. Extremity exam; trace lower extremity edema bilaterally. This is 1+ bilaterally. [employer] exam; patient is awake and alert. No focal motor deficit. Results Result Diagram: 08/13/17 0836 08/13/17 0836 Results 24 hrs Laboratory Tests Test 08/12/17 14:50 08/13/17 08:36 Urine Color RED Urine Clarity TURBID A Urine pH 5.0 Urine Specific [place] 1.028 Urine Ketones NEGATIVE Urine Nitrite NEGATIVE Urine Bilirubin NEGATIVE Urine Urobilinogen NEGATIVE Urine Leukocyte Esterase NEGATIVE Urine Microscopic RBC > 182 H Urine Microscopic WBC 3 Urine Amorphous Crystals MODERATE Urine Mucus FEW A Urine Hemoglobin 3+ H Urine Glucose 2+ H Urine Total Protein 2+ H White Blood Count 14.2 H Red Blood Count 3.17 #L Hemoglobin 8.3 #L Hematocrit 26.8 L Mean Corpuscular Volume 84.5 Mean Corpuscular Hemoglobin 26.2 L Mean Corpuscular Hemoglobin Concent 31.0 L Red Cell Distribution Width 22.3 H Platelet Count 629 H Mean Platelet Volume 10.2 Neutrophils % 82.9 H Lymphocytes % 8.0 L Monocytes % 7.2 Eosinophils % 1.0 Basophils % 0.1 Nucleated Red Blood Cells % 0.0 Neutrophils # 11.8 H Lymphocytes # 1.1 Monocytes # 1.0 H Eosinophils # 0.1 Basophils # 0.0 Nucleated Red Blood Cells # 0.0 Sodium Level 137 Potassium Level 3.8 Chloride Level 99 Carbon Dioxide Level 33 H Anion Gap 9 Blood Urea Nitrogen 8 Creatinine 0.47 Glucose Level 116 Calcium Level 7.6 L Phosphorus Level 2.6 Magnesium Level 2.1 Total Bilirubin 0.8 Direct Bilirubin 0.00 Indirect Bilirubin 0.8 Aspartate Amino Transf (AST/SGOT) 39 Alanine Aminotransferase (ALT/SGPT) 44 Alkaline Phosphatase 82 Total Protein 5.0 L Albumin 2.5 L Globulin 2.50 Albumin/Globulin Ratio 1.00 Medications Medications Current Medications Acetaminophen (Tylenol Tab) 650 mg Q4H PRN PO pain/fever; Start 07/24/17 at 07 :00; Status Future Hold Phenol (Chloraseptic Throat [place]) 2 spray Q2H PRN MT SORE THROAT Last administered on 07/29/17 18:10; Admin Dose 2 SPRAY; Start 07/29/17 at 13:00 Diphenhydramine HCl (Benadryl) 25 mg Q6H PRN IV SLEEP Last administered on 08/01 00:19; Admin Dose 25 MG; Start 07/31/17 at 13:00 Chlorpromazine (Thorazine) 10 mg Q6 PRN IM HICCUPS Last administered on 21:21; Admin Dose 10 MG; Start 08/02/17 at 06:00 Loratadine (Claritin) 10 mg DAILY NGT Last administered on 08/13/17 09:22; Admin Dose 10 MG; Start 08/04/17 at 09:00 Hydromorphone HCl 0.5 mg 0.5 mg Q2H PRN IV PAIN Last administered on 09:22; Admin Dose 0.5 MG; Start 08/05/17 at 22:30 Meropenem/Sodium Chloride (Merrem 1 Gm/50 ml (Pmx)) 50 ml @ 100 mls/hr Q12 IVPB Last administered on 08/13/17 09:22; Admin Dose 100 MLS/HR; Start at 21:00 Hydralazine HCl (Apresoline) 10 mg Q6H PRN IV sbp>170 Last administered on 14:18; Admin Dose 10 MG; Start 08/07/17 at 18:00 Famotidine (Pepcid Iv) 20 mg BID IV Last administered on 08/13/17 09:22; Admin Dose 20 MG; Start 08/09/17 at 09:00 Lisinopril (Zestril) 20 mg DAILY PO Last administered on 08/13/17 09:23; Admin Dose 20 MG; Start 08/10/17 at 10:30 Acetaminophen 650 mg 650 mg Q4H PRN PO PAIN AND OR ELEVATED TEMP; Start at 10:30 Albumin Human (Albumin Human 25%) 100 ml @ 100 mls/hr Q8H IV Last administered on 08/13/17 05:19; Admin Dose 100 MLS/HR; Start 08/11/17 at 12: 30; Stop 08/15/17 at 12:29 Ondansetron HCl 4 mg 4 mg Q6H PRN IV NAUSEA AND/OR VOMITING Last administered on 08/13/17 05:19; Admin Dose 4 MG; Start 08/12/17 at 13:00 Vancomycin HCl 1.25 gm/Sodium Chloride 250 ml @ 83.333 mls/ hr Q12H IVPB Last administered on 08/13/17 00:50; Admin Dose 83.333 MLS/HR; Start 08/13/17 at 00:00 Bumetanide/ Dextrose/Water (Bumex/D5W) 120 ml @ 10 mls/hr Q12H ONCE IV ; Start 08/13/17 at 10:15; Stop 08/13/17 at 22:14 DAMON GONZALEZ Aug 13, 2017 10:53
--- NOTE | 2017-08-13 13:36 | CONS ---
Date/Time of Note Date/Time of Note DATE: 08/13/17 TIME: 13:33 Consult Date/Type/Reason Admit Date/Time Jul 24, 2017 at 06:16 Initial Consult Date 08/05/17 Type of Consultation: ID Ordering Provider: RAE CALVO Objective Vital Signs Date Time Temp Pulse Resp B/P Pulse Ox O2 Delivery O2 Flow Rate FiO2 08/13/17 12:43 Nasal Cannula 08/13/17 12:12 103 08/13/17 12:01 97.9 18 116/59 97 08/13/17 05:58 2.0 08/09/17 12:00 30 Intake and Output 08/12/17 08/12/17 08/13/17 15:00 23:00 07:00 Intake Total 1300 ml 1350 ml Output Total 100 ml 1180 ml 650 ml Balance -100 ml 120 ml 700 ml Results/Medications Result Diagram: 08/13/17 0836 08/13/17 0836 Results 24 hrs Laboratory Tests Test 08/12/17 14:50 08/13/17 08:36 Urine Color RED Urine Clarity TURBID A Urine pH 5.0 Urine Specific [place] 1.028 Urine Ketones NEGATIVE Urine Nitrite NEGATIVE Urine Bilirubin NEGATIVE Urine Urobilinogen NEGATIVE Urine Leukocyte Esterase NEGATIVE Urine Microscopic RBC > 182 H Urine Microscopic WBC 3 Urine Amorphous Crystals MODERATE Urine Mucus FEW A Urine Hemoglobin 3+ H Urine Glucose 2+ H Urine Total Protein 2+ H White Blood Count 14.2 H Red Blood Count 3.17 #L Hemoglobin 8.3 #L Hematocrit 26.8 L Mean Corpuscular Volume 84.5 Mean Corpuscular Hemoglobin 26.2 L Mean Corpuscular Hemoglobin Concent 31.0 L Red Cell Distribution Width 22.3 H Platelet Count 629 H Mean Platelet Volume 10.2 Neutrophils % 82.9 H Lymphocytes % 8.0 L Monocytes % 7.2 Eosinophils % 1.0 Basophils % 0.1 Nucleated Red Blood Cells % 0.0 Neutrophils # 11.8 H Lymphocytes # 1.1 Monocytes # 1.0 H Eosinophils # 0.1 Basophils # 0.0 Nucleated Red Blood Cells # 0.0 Sodium Level 137 Potassium Level 3.8 Chloride Level 99 Carbon Dioxide Level 33 H Anion Gap 9 Blood Urea Nitrogen 8 Creatinine 0.47 Glucose Level 116 Calcium Level 7.6 L Phosphorus Level 2.6 Magnesium Level 2.1 Total Bilirubin 0.8 Direct Bilirubin 0.00 Indirect Bilirubin 0.8 Aspartate Amino Transf (AST/SGOT) 39 Alanine Aminotransferase (ALT/SGPT) 44 Alkaline Phosphatase 82 Total Protein 5.0 L Albumin 2.5 L Globulin 2.50 Albumin/Globulin Ratio 1.00 Medications Current Medications Acetaminophen (Tylenol Tab) 650 mg Q4H PRN PO pain/fever; Start 07/24/17 at 07 :00; Status Future Hold Phenol (Chloraseptic Throat [place]) 2 spray Q2H PRN MT SORE THROAT Last administered on 07/29/17 18:10; Admin Dose 2 SPRAY; Start 07/29/17 at 13:00 Diphenhydramine HCl (Benadryl) 25 mg Q6H PRN IV SLEEP Last administered on 08/01 00:19; Admin Dose 25 MG; Start 07/31/17 at 13:00 Chlorpromazine (Thorazine) 10 mg Q6 PRN IM HICCUPS Last administered on 21:21; Admin Dose 10 MG; Start 08/02/17 at 06:00 Loratadine (Claritin) 10 mg DAILY NGT Last administered on 08/13/17 09:22; Admin Dose 10 MG; Start 08/04/17 at 09:00 Hydromorphone HCl 0.5 mg 0.5 mg Q2H PRN IV PAIN Last administered on 12:33; Admin Dose 0.5 MG; Start 08/05/17 at 22:30 Meropenem/Sodium Chloride (Merrem 1 Gm/50 ml (Pmx)) 50 ml @ 100 mls/hr Q12 IVPB Last administered on 08/13/17 09:22; Admin Dose 100 MLS/HR; Start at 21:00 Hydralazine HCl (Apresoline) 10 mg Q6H PRN IV sbp>170 Last administered on 14:18; Admin Dose 10 MG; Start 08/07/17 at 18:00 Famotidine (Pepcid Iv) 20 mg BID IV Last administered on 08/13/17 09:22; Admin Dose 20 MG; Start 08/09/17 at 09:00 Lisinopril (Zestril) 20 mg DAILY PO Last administered on 08/13/17 09:23; Admin Dose 20 MG; Start 08/10/17 at 10:30 Acetaminophen 650 mg 650 mg Q4H PRN PO PAIN AND OR ELEVATED TEMP; Start at 10:30 Albumin Human (Albumin Human 25%) 100 ml @ 100 mls/hr Q8H IV Last administered on 08/13/17 12:34; Admin Dose 100 MLS/HR; Start 08/11/17 at 12: 30; Stop 08/15/17 at 12:29 Ondansetron HCl 4 mg 4 mg Q6H PRN IV NAUSEA AND/OR VOMITING Last administered on 08/13/17 12:33; Admin Dose 4 MG; Start 08/12/17 at 13:00 Vancomycin HCl 1.25 gm/Sodium Chloride 250 ml @ 83.333 mls/ hr Q12H IVPB Last administered on 08/13/17 11:06; Admin Dose 83.333 MLS/HR; Start 08/13/17 at 00:00 Bumetanide/ Dextrose/Water (Bumex/D5W) 120 ml @ 10 mls/hr Q12H ONCE IV Last administered on 08/13/17 10:59; Admin Dose 10 MLS/HR; Start 08/13/17 at 10:15 ; Stop 08/13/17 at 22:14 Miscellaneous Information (*Rx Drug Level Order Reminder*) VANCOMYCIN TROUGH ON 07/31... ONCE ONCE XX ; Start 08/14/17 at 11:00; Stop 08/14/17 at 11:01 Assessment/Plan Chief Complaint/Hosp Course SUBJECTIVE: No acute changes overnight. Alert, feels good, looks comfortable, afebrile MICROBIOLOGY: Abdominal wound culture on admission on 08/05 grew E. coli, enterococcus species and oxacillin-sensitive Staphylococcus aureus. Aerobic cultures grew Bacteroides fragilis; fluid cultures have been negative. INDWELLINGS: The patient has Leal, right IJ triple-lumen catheter. ANTIMICROBIALS: 1. Vancomycin. 2. Merrem. ALLERGIES: 1. PENICILLIN. 2. SULFA. 3. AMOXICILLIN. PHYSICAL EXAMINATION: GENERAL: This is an obese, well-developed, middle-aged white woman who is alert , in no distress. HEENT: Head atraumatic, normocephalic. Sclerae anicteric. Buccal mucosa dry. NECK: Supple. CHEST: Rise symmetrical. Breath sounds diminished to bases. HEART: S1, S2. ABDOMEN: Soft, bowel tones present. EXTREMITIES: With bilateral edema lower extremities. ASSESSMENT: 1. SIRS with leukocytosis 2. Status post septic shock. 2. Status post respiratory failure. 3. Colon cancer, status post resection with primary anastomosis complicated by anastomotic leak, status post exploratory laparotomy and drainage of abscesses, partial colectomy with colostomy on 08/05/2017. 4. Left pleural effusion, status post thoracentesis. 5. Anemia. 6. Obesity. PLAN: The patient remains stable. Continue abx, diuresis, f/u repeat cx's, incentive spirometry, f/u labs in am DW staff Problems: YG TARANGO NP Aug 13, 2017 13:36
--- NOTE | 2017-08-13 16:15 | PN ---
Date/Time of Note Date/Time of Note DATE: 08/13/17 TIME: 16:05 Assessment/Plan VTE Prophylaxis VTE Prophylaxis Intervention: SCD's Lines/Catheters IV Catheter Type (from Nrs): Central Line Central line still needed: Yes (IV access) Urinary Cath still in place: Yes Reason Cath still needed: other (indicate) (Diuresis) Assessment/Plan Assessment/Plan 51 year old female with: 1. Postop anastomotic leak with sepsis, status post ex lap with drainage of abscesses, drain placement, partial colectomy and colostomy POD#8 Status post Left hemicolectomy for sigmoid adenocarcinoma/mass POD#16 Intraoperative/intraperitoneal cultures positive for E. coli, enterococcus, staph aureus. Patient on appropriate antibiotics based on previous cultures, leukocytosis improving again today, discussed with infectious disease, no change in antibiotics. Blood cultures, UA and urine culture NGTD. She remains afebrile Patient on regular diet per Dr. Aldana. Trying to encourage physical therapy and out of bed to chair at least. 2. S/p Acute respiratory failure, patient extubated over the weekend. Currently on telemetry bed. Still with volume overload requiring diuresis with the albumin on board Chest x-ray with again mild to moderate pleural effusion. Patient being diuresed aggressively. On Bumex drip today. Appreciate recommendations from nephrology and pulmonary. Continue IV antibiotics. 3. Atrial fibrillation, chronic, currently remains in sinus rhythm in the 80s. Off amiodarone drip and digoxin. Appreciate cardiology recommendations. Anticoagulation discontinued, discussed with cardiology for now will just leave her off anticoagulation for the remainder of her postoperative course. Electrolyte repletion as needed. 4. Chronic congestive heart failure, chronic diastolic dysfunction and ejection fraction of 55% on latest outpatient echocardiogram in January 2017 and confirmed to be 50% on this admission. Currently in volume overload, left thoracentesis was done last week, patient did get albumin and now on Bumex drip. 5. Acute kidney injury, in setting of sepsis, also had the contrast studies 2. Resolved, renal function back to normal. Leal catheter in place. Adequate urine output, patient off fluids, Bumex drip to optimize diuresis. Follow-up recommendations from nephrology, Dr. Kiser 6. Anemia, acute on chronic, postop: s/p 2 units of packed red blood cells last week, hemoglobin has remained stable so far. 7. Hypertension, all antihypertensive on hold in setting of sepsis Prophylaxis: Off anticoagulation, SCDs, Pepcid for GI prophylaxis. Disposition: Continue volume management, renal function back to normal. Continue IV antibiotics. Blood cultures, UA and urine cultures NGTD. On Bumex drip. Subjective 24 Hr Interval Summary Free Text/Dictation Patient on Bumex drip, she is diuresing, she started eating a regular diet, no abdominal pain reported per se. WBC is trending down, no bandemia today. Appreciate infectious disease recommendations along with nephrology recs Exam/Review of Systems Vital Signs Vitals Vital Signs Date Time Temp Pulse Resp B/P Pulse Ox O2 Delivery O2 Flow Rate FiO2 08/13/17 16:02 95 08/13/17 15:19 98.7 18 120/57 97 08/13/17 12:43 Nasal Cannula 08/13/17 05:58 2.0 08/09/17 12:00 30 Intake and Output 08/12/17 08/12/17 08/13/17 14:59 22:59 06:59 Intake Total 1300 ml 1350 ml Output Total 100 ml 1180 ml 650 ml Balance -100 ml 120 ml 700 ml Exam Constitutional: alert, obese, oriented, well developed Respiratory: diminished breath sounds (Bilateral bases), normal air movement Cardiovascular: nl pulses, regular rate and rhythm Gastrointestinal: other (VITA drain 2, colostomy bag in place.), soft, tender ( Some mild tenderness to palpation) Musculoskeletal: nl extremities to inspection, swelling (Anasarca improving) Extremities: normal pulses Neurological: GRAPE GROWER II-XII intact, lethargic, nl mental status, nl speech, other (Lying in bed, moving all 4 extremities) Results Result Diagram: 08/13/1736 08/13/17 0836 Results 24 hrs Laboratory Tests Test 08/13/17 08:36 White Blood Count 14.2 H Red Blood Count 3.17 #L Hemoglobin 8.3 #L Hematocrit 26.8 L Mean Corpuscular Volume 84.5 Mean Corpuscular Hemoglobin 26.2 L Mean Corpuscular Hemoglobin Concent 31.0 L Red Cell Distribution Width 22.3 H Platelet Count 629 H Mean Platelet Volume 10.2 Neutrophils % 82.9 H Lymphocytes % 8.0 L Monocytes % 7.2 Eosinophils % 1.0 Basophils % 0.1 Nucleated Red Blood Cells % 0.0 Neutrophils # 11.8 H Lymphocytes # 1.1 Monocytes # 1.0 H Eosinophils # 0.1 Basophils # 0.0 Nucleated Red Blood Cells # 0.0 Sodium Level 137 Potassium Level 3.8 Chloride Level 99 Carbon Dioxide Level 33 H Anion Gap 9 Blood Urea Nitrogen 8 Creatinine 0.47 Glucose Level 116 Calcium Level 7.6 L Phosphorus Level 2.6 Magnesium Level 2.1 Total Bilirubin 0.8 Direct Bilirubin 0.00 Indirect Bilirubin 0.8 Aspartate Amino Transf (AST/SGOT) 39 Alanine Aminotransferase (ALT/SGPT) 44 Alkaline Phosphatase 82 Total Protein 5.0 L Albumin 2.5 L Globulin 2.50 Albumin/Globulin Ratio 1.00 Medications Medications Current Medications Acetaminophen (Tylenol Tab) 650 mg Q4H PRN PO pain/fever; Start 07/24/17 at 07 :00; Status Future Hold Phenol (Chloraseptic Throat [place]) 2 spray Q2H PRN MT SORE THROAT Last administered on 07/29/17 18:10; Admin Dose 2 SPRAY; Start 07/29/17 at 13:00 Diphenhydramine HCl (Benadryl) 25 mg Q6H PRN IV SLEEP Last administered on 08/01 00:19; Admin Dose 25 MG; Start 07/31/17 at 13:00 Chlorpromazine (Thorazine) 10 mg Q6 PRN IM HICCUPS Last administered on 21:21; Admin Dose 10 MG; Start 08/02/17 at 06:00 Loratadine (Claritin) 10 mg DAILY NGT Last administered on 08/13/17 09:22; Admin Dose 10 MG; Start 08/04/17 at 09:00 Hydromorphone HCl 0.5 mg 0.5 mg Q2H PRN IV PAIN Last administered on 14:31; Admin Dose 0.5 MG; Start 08/05/17 at 22:30 Meropenem/Sodium Chloride (Merrem 1 Gm/50 ml (Pmx)) 50 ml @ 100 mls/hr Q12 IVPB Last administered on 08/13/17 09:22; Admin Dose 100 MLS/HR; Start at 21:00 Hydralazine HCl (Apresoline) 10 mg Q6H PRN IV sbp>170 Last administered on 14:18; Admin Dose 10 MG; Start 08/07/17 at 18:00 Famotidine (Pepcid Iv) 20 mg BID IV Last administered on 08/13/17 09:22; Admin Dose 20 MG; Start 08/09/17 at 09:00 Lisinopril (Zestril) 20 mg DAILY PO Last administered on 08/13/17 09:23; Admin Dose 20 MG; Start 08/10/17 at 10:30 Acetaminophen 650 mg 650 mg Q4H PRN PO PAIN AND OR ELEVATED TEMP; Start at 10:30 Albumin Human (Albumin Human 25%) 100 ml @ 100 mls/hr Q8H IV Last administered on 08/13/17 12:34; Admin Dose 100 MLS/HR; Start 08/11/17 at 12: 30; Stop 08/15/17 at 12:29 Ondansetron HCl 4 mg 4 mg Q6H PRN IV NAUSEA AND/OR VOMITING Last administered on 08/13/17 12:33; Admin Dose 4 MG; Start 08/12/17 at 13:00 Vancomycin HCl 1.25 gm/Sodium Chloride 250 ml @ 83.333 mls/ hr Q12H IVPB Last administered on 08/13/17 11:06; Admin Dose 83.333 MLS/HR; Start 08/13/17 at 00:00 Bumetanide/ Dextrose/Water (Bumex/D5W) 120 ml @ 10 mls/hr Q12H ONCE IV Last administered on 08/13/17 10:59; Admin Dose 10 MLS/HR; Start 08/13/17 at 10:15 ; Stop 08/13/17 at 22:14 Miscellaneous Information (*Rx Drug Level Order Reminder*) VANCOMYCIN TROUGH ON 07/31... ONCE ONCE XX ; Start 08/14/17 at 11:00; Stop 08/14/17 at 11:01 RAE CALVO Aug 13, 2017 16:15
--- NOTE | 2017-08-13 20:00 | CONS ---
Date/Time of Note Date/Time of Note DATE: 08/13/17 TIME: 19:58 Assessment/Plan Assessment/Plan Additional Assessment/Plan 1. Oliguric EJ due to ATN from Shock- Multifactorial septic from peritonitis + Hemorrhagic- Improving, making good urine 2. Acute hyperkalemia due to EJ- Resolved 3. Metabolic acidosis with lactic acidosis- Improved much better, 4. acute resp failure, possible Asp PNA vs HCAP - pt remained on ventilator post operatively ,s/p US throacentesis 400 cc removed from left chest 5. Septic shock requiring pressors, now off levophed 6. Status post Left hemicolectomy for sigmoid adenocarcinoma/mass POD#7, s/p total of 4 units pRBC since admission. - again pt underwent Exploratory laparotomy with intra- abdominal abscess drainage, Placement of percutaneous Maurisio drains #19 x2. , Partial colectomy.Formation of end colostomy with Corona's pouch. on 08/05/17 7. Atrial fibrillation 8. Chronic diastolic heart failure with EF 55% 9. Hypocalcemia with hypoalbuminemia 10. Hypernatremia - resolved with D5W Plan: - s/p extubation - s/p Thoracentesis 400 cc drained, - pt has anasarca-w ill give her bumex gtt 1 mg/hr x 12 hr then reassess in AM monitor electrolytes and replace as needed. will continue to follow up along with other subspecialis Consultation Date/Type/Reason Admit Date/Time Jul 24, 2017 at 06:16 Initial Consult Date 08/05/17 Type of Consultation: NEPHROLOGY Referring Provider: RAE CALVO 24 HR Interval Summary Free Text/Dictation tolerating po diet, still very edematoua with facial swelling, + valladares in place Exam/Review of Systems Vital Signs Vitals Vital Signs Date Time Temp Pulse Resp B/P Pulse Ox O2 Delivery O2 Flow Rate FiO2 08/13/17 16:20 2.0 08/13/17 16:02 95 08/13/17 15:19 98.7 18 120/57 97 08/13/17 12:43 Nasal Cannula 08/09/17 12:00 30 Intake and Output 08/12/17 08/12/17 08/13/17 15:00 23:00 07:00 Intake Total 1300 ml 1350 ml Output Total 100 ml 1180 ml 650 ml Balance -100 ml 120 ml 700 ml Exam GENERAL: This is an obese, well-developed, middle-aged white woman who is alert , in no distress. HEENT: Head atraumatic, normocephalic. Sclerae anicteric. Buccal mucosa dry. NECK: Supple. CHEST: Rise symmetrical. Breath sounds diminished to bases. HEART: S1, S2. ABDOMEN: Soft, bowel tones present. back swelling + EXTREMITIES: With bilateral edema lower extremities. + valladares catheter Results Result Diagram: 08/13/1736 08/13/17 0836 Results 24 hrs Laboratory Tests Test 08/13/17 08:36 White Blood Count 14.2 H Red Blood Count 3.17 #L Hemoglobin 8.3 #L Hematocrit 26.8 L Mean Corpuscular Volume 84.5 Mean Corpuscular Hemoglobin 26.2 L Mean Corpuscular Hemoglobin Concent 31.0 L Red Cell Distribution Width 22.3 H Platelet Count 629 H Mean Platelet Volume 10.2 Neutrophils % 82.9 H Lymphocytes % 8.0 L Monocytes % 7.2 Eosinophils % 1.0 Basophils % 0.1 Nucleated Red Blood Cells % 0.0 Neutrophils # 11.8 H Lymphocytes # 1.1 Monocytes # 1.0 H Eosinophils # 0.1 Basophils # 0.0 Nucleated Red Blood Cells # 0.0 Sodium Level 137 Potassium Level 3.8 Chloride Level 99 Carbon Dioxide Level 33 H Anion Gap 9 Blood Urea Nitrogen 8 Creatinine 0.47 Glucose Level 116 Calcium Level 7.6 L Phosphorus Level 2.6 Magnesium Level 2.1 Total Bilirubin 0.8 Direct Bilirubin 0.00 Indirect Bilirubin 0.8 Aspartate Amino Transf (AST/SGOT) 39 Alanine Aminotransferase (ALT/SGPT) 44 Alkaline Phosphatase 82 Total Protein 5.0 L Albumin 2.5 L Globulin 2.50 Albumin/Globulin Ratio 1.00 Medications Medications Current Medications Acetaminophen (Tylenol Tab) 650 mg Q4H PRN PO pain/fever; Start 07/24/17 at 07 :00; Status Future Hold Phenol (Chloraseptic Throat [place]) 2 spray Q2H PRN MT SORE THROAT Last administered on 07/29/17 18:10; Admin Dose 2 SPRAY; Start 07/29/17 at 13:00 Diphenhydramine HCl (Benadryl) 25 mg Q6H PRN IV SLEEP Last administered on 08/01 00:19; Admin Dose 25 MG; Start 07/31/17 at 13:00 Chlorpromazine (Thorazine) 10 mg Q6 PRN IM HICCUPS Last administered on 21:21; Admin Dose 10 MG; Start 08/02/17 at 06:00 Loratadine (Claritin) 10 mg DAILY NGT Last administered on 08/13/17 09:22; Admin Dose 10 MG; Start 08/04/17 at 09:00 Hydromorphone HCl 0.5 mg 0.5 mg Q2H PRN IV PAIN Last administered on 17:34; Admin Dose 0.5 MG; Start 08/05/17 at 22:30 Meropenem/Sodium Chloride (Merrem 1 Gm/50 ml (Pmx)) 50 ml @ 100 mls/hr Q12 IVPB Last administered on 08/13/17 09:22; Admin Dose 100 MLS/HR; Start at 21:00 Hydralazine HCl (Apresoline) 10 mg Q6H PRN IV sbp>170 Last administered on 14:18; Admin Dose 10 MG; Start 08/07/17 at 18:00 Famotidine (Pepcid Iv) 20 mg BID IV Last administered on 08/13/17 09:22; Admin Dose 20 MG; Start 08/09/17 at 09:00 Lisinopril (Zestril) 20 mg DAILY PO Last administered on 08/13/17 09:23; Admin Dose 20 MG; Start 08/10/17 at 10:30 Acetaminophen 650 mg 650 mg Q4H PRN PO PAIN AND OR ELEVATED TEMP; Start at 10:30 Albumin Human (Albumin Human 25%) 100 ml @ 100 mls/hr Q8H IV Last administered on 08/13/17 12:34; Admin Dose 100 MLS/HR; Start 08/11/17 at 12: 30; Stop 08/15/17 at 12:29 Ondansetron HCl 4 mg 4 mg Q6H PRN IV NAUSEA AND/OR VOMITING Last administered on 08/13/17 12:33; Admin Dose 4 MG; Start 08/12/17 at 13:00 Vancomycin HCl 1.25 gm/Sodium Chloride 250 ml @ 83.333 mls/ hr Q12H IVPB Last administered on 08/13/17 11:06; Admin Dose 83.333 MLS/HR; Start 08/13/17 at 00:00 Bumetanide/ Dextrose/Water (Bumex/D5W) 120 ml @ 10 mls/hr Q12H ONCE IV Last administered on 08/13/17 10:59; Admin Dose 10 MLS/HR; Start 08/13/17 at 10:15 ; Stop 08/13/17 at 22:14 Miscellaneous Information (*Rx Drug Level Order Reminder*) VANCOMYCIN TROUGH ON 07/31... ONCE ONCE XX ; Start 08/14/17 at 11:00; Stop 08/14/17 at 11:01 MEKA ROBERTSON MD Aug 13, 2017 20:00
[2017-08-13] MEDS: LEVALBUTEROL (NEB) 0.63 MG/3 ML AMP HHN PRN (22:59)
[2017-08-14] VITALS (12 sets, daily range): BP systolic 105–145; BP diastolic 53–68; PULSE 89–102; RESP 18–20
[2017-08-14] MEDS: HYDROmorphONE 0.5 MG/0.5 ML SYG IV PRN ×9 (00:45→23:41)
[2017-08-14] MEDS: ONDANSETRON 4 MG INJ IV PRN ×3 (04:50→21:02)
[2017-08-14] MEDS: ALBUMIN HUMAN 25% 100 ML IV SCH ×3 (04:51→21:04)
[2017-08-14 07:05] LABS: ABNORMAL IP MESSAGE 1; BASOPHILS % 0.2 % (0.0-2.0); EOSINOPHILS # 0.1 10^3/ul (0.0-0.5); EOSINOPHILS % 1.1 % (0.0-7.0); HEMATOCRIT 25.6 % (37.0-47.0); MEAN CORPUSCULAR HEMOGLOBIN 26.5 pg (29.0-33.0); MEAN CORPUSCULAR HGB CONC 31.3 g/dl (32.0-37.0); MEAN CORPUSCULAR VOLUME 84.8 fl (82.0-101.0); MEAN PLATELET VOLUME 10.1 fl (7.4-10.4); MONOCYTE # 0.9 10^3/ul (0.3-0.9); NEUTROPHIL # 9.3 10^3/ul (1.6-7.5); NEUTROPHILS % 81.2 % (39.0-77.0); PLATELET COUNT 586 10^3/UL (140-415); RED BLOOD COUNT 3.02 10^6/ul (4.20-5.40); RED CELL DISTRIBUTION WIDTH 22.3 % (11.5-14.5); WHITE BLOOD COUNT 11.4 10^3/ul (4.8-10.8)
[2017-08-14 07:10] LABS: POSITIVE DIFF @See below
[2017-08-14 07:20] LABS: MAGNESIUM 1.4 mg/dl (1.7-2.5); PHOSPHORUS 2.8 mg/dl (2.5-4.9)
[2017-08-14 07:24] LABS: CALCIUM 7.3 mg/dl (8.4-10.2); CREATININE 0.64 mg/dl (0.44-1.00); POTASSIUM 3.2 mmol/L (3.5-5.1)
--- NOTE | 2017-08-14 09:50 | CONS ---
Date/Time of Note Date/Time of Note DATE: 08/14/17 TIME: 09:44 Assessment/Plan Assessment/Plan Additional Assessment/Plan 1. Oliguric EJ due to ATN from Shock- Multifactorial septic from peritonitis + Hemorrhagic- Improving, making good urine 2. Acute hyperkalemia due to EJ- Resolved 3. Metabolic acidosis with lactic acidosis- Improved much better, 4. acute resp failure, possible Asp PNA vs HCAP - pt remained on ventilator post operatively ,s/p US throacentesis 400 cc removed from left chest on - s/p extubation on 08/09/17 5. Septic shock requiring pressors, now off levophed 6. Status post Left hemicolectomy for sigmoid adenocarcinoma/mass POD#7, s/p total of 4 units pRBC since admission. - again pt underwent Exploratory laparotomy with intra- abdominal abscess drainage, Placement of percutaneous Maurisio drains #19 x2. , Partial colectomy.Formation of end colostomy with Corona's pouch. on 08/05/17 7. Atrial fibrillation 8. Chronic diastolic heart failure with EF 55% 9. Hypocalcemia with hypoalbuminemia 10. Hypernatremia - resolved with D5W Plan: - s/p Bumex gtt for 12 hr- made 10 liter urine output, BP stable, Cr stable, pt HCo3 high - continue IV albumin as ordered( to be finish on 08/15/17)- we will give bumex 1 mg IV BID with albumin - will replace magnesium sulfate 2 gram iv x 1, KCl 20mEQ IV x 1 dose today Monitor electrolytes and Replace as needed will continue to follow up along with other subspecialist Consultation Date/Type/Reason Admit Date/Time Jul 24, 2017 at 06:16 Initial Consult Date 08/05/17 Type of Consultation: NEPHROLOGY Referring Provider: RAE CALVO 24 HR Interval Summary Free Text/Dictation s/p Bumex gtt for 12 hr- made 10 liter urine output, BP stable, Cr stable, pt HCo3 high Exam/Review of Systems Vital Signs Vitals Vital Signs Date Time Temp Pulse Resp B/P Pulse Ox O2 Delivery O2 Flow Rate FiO2 08/14/17 08:07 89 08/14/17 07:50 98.0 18 126/68 98 08/14/17 04:57 2.0 08/13/17 22:59 Nasal Cannula Intake and Output 08/13/17 08/13/17 08/14/17 14:59 22:59 06:59 Intake Total 50 ml 1485 ml 1450 ml Output Total 3620 ml 8130 ml Balance 50 ml -2135 ml -6680 ml Exam GENERAL: alert, awake, No acute distress HEENT: CHANDRAKANT, EOMI CHEST: Rise symmetrical. Breath sounds diminished to bases. HEART: S1, S2. ABDOMEN: Soft, bowel tones present. back swelling + EXTREMITIES: With bilateral edema lower extremities.2+ + valladares catheter Results Result Diagram: 08/14/1717 08/14/1717 Results 24 hrs Laboratory Tests Test 08/14/17 06:17 White Blood Count 11.4 H Red Blood Count 3.02 L Hemoglobin 8.0 L Hematocrit 25.6 L Mean Corpuscular Volume 84.8 Mean Corpuscular Hemoglobin 26.5 L Mean Corpuscular Hemoglobin Concent 31.3 L Red Cell Distribution Width 22.3 H Platelet Count 586 H Mean Platelet Volume 10.1 Neutrophils % 81.2 H Lymphocytes % 9.0 L Monocytes % 8.0 Eosinophils % 1.1 Basophils % 0.2 Nucleated Red Blood Cells % 0.0 Neutrophils # 9.3 H Lymphocytes # 1.0 Monocytes # 0.9 Eosinophils # 0.1 Basophils # 0.0 Nucleated Red Blood Cells # 0.0 Sodium Level 136 Potassium Level 3.2 L Chloride Level 89 #L Carbon Dioxide Level 41 *H Anion Gap 9 Blood Urea Nitrogen 6 L Creatinine 0.64 Glucose Level 118 Calcium Level 7.3 L Phosphorus Level 2.8 Magnesium Level 1.4 L Medications Medications Current Medications Acetaminophen (Tylenol Tab) 650 mg Q4H PRN PO pain/fever; Start 07/24/17 at 07 :00; Status Future Hold Phenol (Chloraseptic Throat [place]) 2 spray Q2H PRN MT SORE THROAT Last administered on 07/29/17 18:10; Admin Dose 2 SPRAY; Start 07/29/17 at 13:00 Diphenhydramine HCl (Benadryl) 25 mg Q6H PRN IV SLEEP Last administered on 08/01 00:19; Admin Dose 25 MG; Start 07/31/17 at 13:00 Chlorpromazine (Thorazine) 10 mg Q6 PRN IM HICCUPS Last administered on 21:21; Admin Dose 10 MG; Start 08/02/17 at 06:00 Loratadine (Claritin) 10 mg DAILY NGT Last administered on 08/13/17 09:22; Admin Dose 10 MG; Start 08/04/17 at 09:00 Hydromorphone HCl 0.5 mg 0.5 mg Q2H PRN IV PAIN Last administered on 08:02; Admin Dose 0.5 MG; Start 08/05/17 at 22:30 Meropenem/Sodium Chloride (Merrem 1 Gm/50 ml (Pmx)) 50 ml @ 100 mls/hr Q12 IVPB Last administered on 08/13/17 21:18; Admin Dose 100 MLS/HR; Start at 21:00 Hydralazine HCl (Apresoline) 10 mg Q6H PRN IV sbp>170 Last administered on 14:18; Admin Dose 10 MG; Start 08/07/17 at 18:00 Famotidine (Pepcid Iv) 20 mg BID IV Last administered on 08/13/17 20:11; Admin Dose 20 MG; Start 08/09/17 at 09:00 Lisinopril (Zestril) 20 mg DAILY PO Last administered on 08/13/17 09:23; Admin Dose 20 MG; Start 08/10/17 at 10:30 Acetaminophen 650 mg 650 mg Q4H PRN PO PAIN AND OR ELEVATED TEMP; Start at 10:30 Albumin Human (Albumin Human 25%) 100 ml @ 100 mls/hr Q8H IV Last administered on 08/14/17 04:51; Admin Dose 100 MLS/HR; Start 08/11/17 at 12: 30; Stop 08/15/17 at 12:29 Ondansetron HCl 4 mg 4 mg Q6H PRN IV NAUSEA AND/OR VOMITING Last administered on 08/14/17 04:50; Admin Dose 4 MG; Start 08/12/17 at 13:00 Vancomycin HCl/ Sodium Chloride (Vancocin/NS) 250 ml @ 83.333 mls/ hr Q12H IVPB Last administered on 08/13/17 23:43; Admin Dose 83.333 MLS/HR; Start 11 /14/17 at 00:00 Miscellaneous Information (*Rx Drug Level Order Reminder*) VANCOMYCIN TROUGH ON 07/31... ONCE ONCE XX ; Start 08/14/17 at 11:00; Stop 08/14/17 at 11:01 MEKA ROBERTSON MD Aug 14, 2017 09:50
[2017-08-14] MEDS ORDERED: MAGNESIUM SULFATE 2 GM/50 ML 50 ML IVPB ONE (10:00)
[2017-08-14] MEDS ORDERED: BUMETANIDE 1 MG INJ IV SCH (10:00)
[2017-08-14] MEDS: FAMOTIDINE 20 MG INJ IV SCH ×2 (10:25→21:02)
[2017-08-14] MEDS: LISINOPRIL 20 MG TAB PO SCH (10:25)
[2017-08-14] MEDS: LORATADINE 10 MG TAB NGT SCH (10:25)
[2017-08-14] MEDS ORDERED: POTASSIUM CHLORIDE 20 MEQ in SOD CHLORIDE 0.9% 100 ML IVPB ONE (11:00)
[2017-08-14] MEDS: ACETAMINOPHEN 325 MG TAB PO PRN ×3 (11:12→22:17)
[2017-08-14] MEDS: MEROPENEM 1 GM/50ML(PMX) 50 ML IVPB SCH ×2 (11:13→21:07)
[2017-08-14] MEDS: BUMETANIDE 1 MG INJ IV SCH ×2 (11:14→18:51)
--- NOTE | 2017-08-14 11:56 | CONS ---
Date/Time of Note Date/Time of Note DATE: 08/14/17 TIME: 11:55 Assessment/Plan Assessment/Plan Additional Assessment/Plan Paroxysmal atrial fibrillation with rapid ventricular rates, currently sinus Acute decompensated systolic and diastolic congestive heart failure Low normal ejection fraction 50% Colon mass status post colon surgery July 26, 2017 and repeat August 05, 2017 Acute kidney injury, improved Sepsis Vent dependent respiratory failure, status post extubation -Patient put on Bumex drip overnight with episodes of paroxysmal atrial fibrillation. Patient is hypokalemic with low magnesium level, this is being supplemented, ideally maintain potassium above 4.0 and magnesium above 2.0. Diuretics as per our nephrology colleagues. Will start amiodarone to help maintain in sinus rhythm Consultation Date/Type/Reason Admit Date/Time Jul 24, 2017 at 06:16 Initial Consult Date 07/29/17 Type of Consultation: cv Referring Provider: RAE CALVO 24 HR Interval Summary Free Text/Dictation Patient put on Bumex drip overnight, episodes of paroxysmal atrial fibrillation. Denies palpitations, shortness of breath is better Exam/Review of Systems Vital Signs Vitals Vital Signs Date Time Temp Pulse Resp B/P Pulse Ox O2 Delivery O2 Flow Rate FiO2 08/14/17 08:07 89 08/14/17 07:50 98.0 18 126/68 98 08/14/17 04:57 2.0 08/13/17 22:59 Nasal Cannula Intake and Output 08/13/17 08/13/17 08/14/17 15:00 23:00 07:00 Intake Total 300 ml 1235 ml 1450 ml Output Total 3620 ml 8130 ml Balance 300 ml -2385 ml -6680 ml Exam No apparent distress Constitutional: alert, oriented Head: normocephalic Respiratory: other (Coarse breath sounds bilaterally, no wheezing) Cardiovascular: other (S1-S2 heard), regular rate and rhythm Gastrointestinal: bowel sounds, non-tender, soft Extremities: edema Results Result Diagram: 08/14/17 0617 08/14/17 0617 Results 24 hrs Laboratory Tests Test 08/14/17 06:17 White Blood Count 11.4 H Red Blood Count 3.02 L Hemoglobin 8.0 L Hematocrit 25.6 L Mean Corpuscular Volume 84.8 Mean Corpuscular Hemoglobin 26.5 L Mean Corpuscular Hemoglobin Concent 31.3 L Red Cell Distribution Width 22.3 H Platelet Count 586 H Mean Platelet Volume 10.1 Neutrophils % 81.2 H Lymphocytes % 9.0 L Monocytes % 8.0 Eosinophils % 1.1 Basophils % 0.2 Nucleated Red Blood Cells % 0.0 Neutrophils # 9.3 H Lymphocytes # 1.0 Monocytes # 0.9 Eosinophils # 0.1 Basophils # 0.0 Nucleated Red Blood Cells # 0.0 Sodium Level 136 Potassium Level 3.2 L Chloride Level 89 #L Carbon Dioxide Level 41 *H Anion Gap 9 Blood Urea Nitrogen 6 L Creatinine 0.64 Glucose Level 118 Calcium Level 7.3 L Phosphorus Level 2.8 Magnesium Level 1.4 L Medications Medications Current Medications Acetaminophen (Tylenol Tab) 650 mg Q4H PRN PO pain/fever; Start 07/24/17 at 07 :00; Status Future Hold Phenol (Chloraseptic Throat [place]) 2 spray Q2H PRN MT SORE THROAT Last administered on 07/29/17 18:10; Admin Dose 2 SPRAY; Start 07/29/17 at 13:00 Diphenhydramine HCl (Benadryl) 25 mg Q6H PRN IV SLEEP Last administered on 08/01 00:19; Admin Dose 25 MG; Start 07/31/17 at 13:00 Chlorpromazine (Thorazine) 10 mg Q6 PRN IM HICCUPS Last administered on 21:21; Admin Dose 10 MG; Start 08/02/17 at 06:00 Loratadine (Claritin) 10 mg DAILY NGT Last administered on 08/14/17 10:25; Admin Dose 10 MG; Start 08/04/17 at 09:00 Hydromorphone HCl 0.5 mg 0.5 mg Q2H PRN IV PAIN Last administered on 11:11; Admin Dose 0.5 MG; Start 08/05/17 at 22:30 Meropenem/Sodium Chloride (Merrem 1 Gm/50 ml (Pmx)) 50 ml @ 100 mls/hr Q12 IVPB Last administered on 08/14/17 11:13; Admin Dose 100 MLS/HR; Start at 21:00 Hydralazine HCl (Apresoline) 10 mg Q6H PRN IV sbp>170 Last administered on 14:18; Admin Dose 10 MG; Start 08/07/17 at 18:00 Famotidine (Pepcid Iv) 20 mg BID IV Last administered on 08/14/17 10:25; Admin Dose 20 MG; Start 08/09/17 at 09:00 Lisinopril (Zestril) 20 mg DAILY PO Last administered on 08/14/17 10:25; Admin Dose 20 MG; Start 08/10/17 at 10:30 Acetaminophen 650 mg 650 mg Q4H PRN PO PAIN AND OR ELEVATED TEMP Last administered on 08/14/17 11:12; Admin Dose 650 MG; Start 08/10/17 at 10:30 Albumin Human (Albumin Human 25%) 100 ml @ 100 mls/hr Q8H IV Last administered on 08/14/17 04:51; Admin Dose 100 MLS/HR; Start 08/11/17 at 12: 30; Stop 08/15/17 at 12:29 Ondansetron HCl 4 mg 4 mg Q6H PRN IV NAUSEA AND/OR VOMITING Last administered on 08/14/17 11:11; Admin Dose 4 MG; Start 08/12/17 at 13:00 Vancomycin HCl 1.25 gm/Sodium Chloride 250 ml @ 83.333 mls/ hr Q12H IVPB Last administered on 08/13/17 23:43; Admin Dose 83.333 MLS/HR; Start 08/13/17 at 00:00 Magnesium Sulfate 50 ml @ 25 mls/hr ONCE ONCE IVPB Last administered on 11:13; Admin Dose 25 MLS/HR; Start 08/14/17 at 10:00; Stop 08/14/17 at 11 :59 Potassium Chloride/Sodium Chloride (KCl/NS) 110 ml @ 55 mls/hr ONCE ONCE IVPB Last administered on 08/14/17 11:13; Admin Dose 55 MLS/HR; Start 08/14/17 at 11:00; Stop 08/14/17 at 12:59 Fercho Mojica DO Aug 14, 2017 11:56
[2017-08-14] MEDS ORDERED: POTASSIUM CHLORIDE 20 MEQ POWDER FOR ORAL SOLN PO ONE (12:00)
--- NOTE | 2017-08-14 12:40 | CONS ---
Date/Time of Note Date/Time of Note DATE: 08/14/17 TIME: 12:39 Consult Date/Type/Reason Admit Date/Time Jul 24, 2017 at 06:16 Initial Consult Date 08/05/17 Type of Consultation: ID Ordering Provider: RAE CALVO Objective Vital Signs Date Time Temp Pulse Resp B/P Pulse Ox O2 Delivery O2 Flow Rate FiO2 08/14/17 12:01 92 08/14/17 07:50 98.0 18 126/68 98 08/14/17 04:57 2.0 08/13/17 22:59 Nasal Cannula Intake and Output 08/13/17 08/13/17 08/14/17 15:00 23:00 07:00 Intake Total 300 ml 1235 ml 1450 ml Output Total 3620 ml 8130 ml Balance 300 ml -2385 ml -6680 ml Results/Medications Result Diagram: 08/14/17 0617 08/14/17 0617 Results 24 hrs Laboratory Tests Test 08/14/17 06:17 08/14/17 11:20 White Blood Count 11.4 H Red Blood Count 3.02 L Hemoglobin 8.0 L Hematocrit 25.6 L Mean Corpuscular Volume 84.8 Mean Corpuscular Hemoglobin 26.5 L Mean Corpuscular Hemoglobin Concent 31.3 L Red Cell Distribution Width 22.3 H Platelet Count 586 H Mean Platelet Volume 10.1 Neutrophils % 81.2 H Lymphocytes % 9.0 L Monocytes % 8.0 Eosinophils % 1.1 Basophils % 0.2 Nucleated Red Blood Cells % 0.0 Neutrophils # 9.3 H Lymphocytes # 1.0 Monocytes # 0.9 Eosinophils # 0.1 Basophils # 0.0 Nucleated Red Blood Cells # 0.0 Sodium Level 136 Potassium Level 3.2 L Chloride Level 89 #L Carbon Dioxide Level 41 *H Anion Gap 9 Blood Urea Nitrogen 6 L Creatinine 0.64 Glucose Level 118 Calcium Level 7.3 L Phosphorus Level 2.8 Magnesium Level 1.4 L Vancomycin Level Trough 15.3 Medications Current Medications Acetaminophen (Tylenol Tab) 650 mg Q4H PRN PO pain/fever; Start 07/24/17 at 07 :00; Status Future Hold Phenol (Chloraseptic Throat [place]) 2 spray Q2H PRN MT SORE THROAT Last administered on 07/29/17t 18:10; Admin Dose 2 SPRAY; Start 07/29/17 at 13:00 Diphenhydramine HCl (Benadryl) 25 mg Q6H PRN IV SLEEP Last administered on 08/01 00:19; Admin Dose 25 MG; Start 07/31/17 at 13:00 Chlorpromazine (Thorazine) 10 mg Q6 PRN IM HICCUPS Last administered on 21:21; Admin Dose 10 MG; Start 08/02/17 at 06:00 Loratadine (Claritin) 10 mg DAILY NGT Last administered on 08/14/17 10:25; Admin Dose 10 MG; Start 08/04/17 at 09:00 Hydromorphone HCl 0.5 mg 0.5 mg Q2H PRN IV PAIN Last administered on 11:11; Admin Dose 0.5 MG; Start 08/05/17 at 22:30 Meropenem/Sodium Chloride (Merrem 1 Gm/50 ml (Pmx)) 50 ml @ 100 mls/hr Q12 IVPB Last administered on 08/14/17 11:13; Admin Dose 100 MLS/HR; Start at 21:00 Hydralazine HCl (Apresoline) 10 mg Q6H PRN IV sbp>170 Last administered on 14:18; Admin Dose 10 MG; Start 08/07/17 at 18:00 Famotidine (Pepcid Iv) 20 mg BID IV Last administered on 08/14/17 10:25; Admin Dose 20 MG; Start 08/09/17 at 09:00 Lisinopril (Zestril) 20 mg DAILY PO Last administered on 08/14/17 10:25; Admin Dose 20 MG; Start 08/10/17 at 10:30 Acetaminophen 650 mg 650 mg Q4H PRN PO PAIN AND OR ELEVATED TEMP Last administered on 08/14/17 11:12; Admin Dose 650 MG; Start 08/10/17 at 10:30 Albumin Human (Albumin Human 25%) 100 ml @ 100 mls/hr Q8H IV Last administered on 08/14/17 04:51; Admin Dose 100 MLS/HR; Start 08/11/17 at 12: 30; Stop 08/15/17 at 12:29 Ondansetron HCl 4 mg 4 mg Q6H PRN IV NAUSEA AND/OR VOMITING Last administered on 08/14/17 11:11; Admin Dose 4 MG; Start 08/12/17 at 13:00 Vancomycin HCl 1.25 gm/Sodium Chloride 250 ml @ 83.333 mls/ hr Q12H IVPB Last administered on 08/13/17 23:43; Admin Dose 83.333 MLS/HR; Start 08/13/17 at 00:00 Potassium Chloride/Sodium Chloride (KCl/NS) 110 ml @ 55 mls/hr ONCE ONCE IVPB Last administered on 08/14/17 11:13; Admin Dose 55 MLS/HR; Start 08/14/17 at 11:00; Stop 08/14/17 at 12:59 Amiodarone HCl (Cordarone) 200 mg BID PO ; Start 08/14/17 at 12:00 Assessment/Plan Chief Complaint/Hosp Course SUBJECTIVE: No acute changes overnight. Alert, feels better, looks comfortable , afebrile MICROBIOLOGY: Abdominal wound culture on admission on 08/05 grew E. coli, enterococcus species and oxacillin-sensitive Staphylococcus aureus. Aerobic cultures grew Bacteroides fragilis; fluid cultures have been negative. INDWELLINGS: The patient has Leal, right IJ triple-lumen catheter. ANTIMICROBIALS: 1. Vancomycin. 2. Merrem. ALLERGIES: 1. PENICILLIN. 2. SULFA. 3. AMOXICILLIN. PHYSICAL EXAMINATION: GENERAL: This is an obese, well-developed, middle-aged white woman who is alert , in no distress. HEENT: Head atraumatic, normocephalic. Sclerae anicteric. Buccal mucosa dry. NECK: Supple. CHEST: Rise symmetrical. Breath sounds diminished to bases. HEART: S1, S2. ABDOMEN: Soft, bowel tones present. EXTREMITIES: With bilateral edema lower extremities. ASSESSMENT: 1. SIRS with leukocytosis 2. Status post septic shock. 2. Status post respiratory failure. 3. Colon cancer, status post resection with primary anastomosis complicated by anastomotic leak, status post exploratory laparotomy and drainage of abscesses, partial colectomy with colostomy on 08/05/2017. 4. Left pleural effusion, status post thoracentesis. 5. Anemia. 6. Obesity. PLAN: The patient remains stable. WBC decreasing, repeat cx's negative, continue abx, incentive spirometry DW staff Problems: YG [employer]AR[employer] Aug 14, 2017 12:40
--- NOTE | 2017-08-14 13:17 | PN ---
Date/Time of Note Date/Time of Note DATE: 08/14/17 TIME: 13:16 Assessment/Plan VTE Prophylaxis VTE Prophylaxis Intervention: SCD's Lines/Catheters IV [facility] Type (from [facility] Central Line Central line still needed: Yes Urinary Cath still in place: Yes Reason Cath still needed: urinary retention Assessment/Plan Chief Complaint/Hosp Course 51 yo F with bleeding colon cancer taken to the OR for urgent resection with primary anastomosis postop course was ok and was tolerating clears until she develop afib with RVR and diaphoresis was transferred to the ICU, she developed ileus and emesis, CT scan showed anastomotic leak patient taken to the OR for washout and colostomy placement. was on pressors for one night now off. Problems: Assessment/Plan tolerating diet starting physical therapy continue care Subjective 24 Hr Interval Summary Free Text/Dictation tolerating diet and working with physical therapy Exam/Review of Systems Vital Signs Vitals Vital Signs Date Time Temp Pulse Resp B/P Pulse Ox O2 Delivery O2 Flow Rate FiO2 08/14/17 12:01 92 08/14/17 07:50 98.0 18 126/68 98 08/14/17 04:57 2.0 08/13/17 22:59 Nasal Cannula Intake and Output 08/13/17 08/13/17 08/14/17 15:00 23:00 07:00 Intake Total 300 ml 1235 ml 1450 ml Output Total 3620 ml 8130 ml Balance 300 ml -2385 ml -6680 ml Exam functional colostomy Results Result Diagram: 08/14/17 0617 08/14/17 0617 Results 24 hrs Laboratory Tests Test 08/14/17 06:17 08/14/17 11:20 White Blood Count 11.4 H Red Blood Count 3.02 L Hemoglobin 8.0 L Hematocrit 25.6 L Mean Corpuscular Volume 84.8 Mean Corpuscular Hemoglobin 26.5 L Mean Corpuscular Hemoglobin Concent 31.3 L Red Cell Distribution Width 22.3 H Platelet Count 586 H Mean Platelet Volume 10.1 Neutrophils % 81.2 H Lymphocytes % 9.0 L Monocytes % 8.0 Eosinophils % 1.1 Basophils % 0.2 Nucleated Red Blood Cells % 0.0 Neutrophils # 9.3 H Lymphocytes # 1.0 Monocytes # 0.9 Eosinophils # 0.1 Basophils # 0.0 Nucleated Red Blood Cells # 0.0 Sodium Level 136 Potassium Level 3.2 L Chloride Level 89 #L Carbon Dioxide Level 41 *H Anion Gap 9 Blood Urea Nitrogen 6 L Creatinine 0.64 Glucose Level 118 Calcium Level 7.3 L Phosphorus Level 2.8 Magnesium Level 1.4 L Vancomycin Level Trough 15.3 Medications Medications Current Medications Acetaminophen (Tylenol Tab) 650 mg Q4H PRN PO pain/fever; Start 07/24/17 at 07 :00; Status Future Hold Phenol (Chloraseptic Throat [place]) 2 spray Q2H PRN MT SORE THROAT Last administered on 07/29/17 18:10; Admin Dose 2 SPRAY; Start 07/29/17 at 13:00 Diphenhydramine HCl (Benadryl) 25 mg Q6H PRN IV SLEEP Last administered on 08/01 00:19; Admin Dose 25 MG; Start 07/31/17 at 13:00 Chlorpromazine (Thorazine) 10 mg Q6 PRN IM HICCUPS Last administered on 21:21; Admin Dose 10 MG; Start 08/02/17 at 06:00 Loratadine (Claritin) 10 mg DAILY NGT Last administered on 08/14/17 10:25; Admin Dose 10 MG; Start 08/04/17 at 09:00 Hydromorphone HCl 0.5 mg 0.5 mg Q2H PRN IV PAIN Last administered on 11:11; Admin Dose 0.5 MG; Start 08/05/17 at 22:30 Meropenem/Sodium Chloride (Merrem 1 Gm/50 ml (Pmx)) 50 ml @ 100 mls/hr Q12 IVPB Last administered on 08/14/17 11:13; Admin Dose 100 MLS/HR; Start at 21:00 Hydralazine HCl (Apresoline) 10 mg Q6H PRN IV sbp>170 Last administered on 14:18; Admin Dose 10 MG; Start 08/07/17 at 18:00 Famotidine (Pepcid Iv) 20 mg BID IV Last administered on 08/14/17 10:25; Admin Dose 20 MG; Start 08/09/17 at 09:00 Lisinopril (Zestril) 20 mg DAILY PO Last administered on 08/14/17 10:25; Admin Dose 20 MG; Start 08/10/17 at 10:30 Acetaminophen 650 mg 650 mg Q4H PRN PO PAIN AND OR ELEVATED TEMP Last administered on 08/14/17 11:12; Admin Dose 650 MG; Start 08/10/17 at 10:30 Albumin Human (Albumin Human 25%) 100 ml @ 100 mls/hr Q8H IV Last administered on 08/14/17 04:51; Admin Dose 100 MLS/HR; Start 08/11/17 at 12: 30; Stop 08/15/17 at 12:29 Ondansetron HCl 4 mg 4 mg Q6H PRN IV NAUSEA AND/OR VOMITING Last administered on 08/14/17 11:11; Admin Dose 4 MG; Start 08/12/17 at 13:00 Vancomycin HCl/ Sodium Chloride (Vancocin/NS) 250 ml @ 83.333 mls/ hr Q12H IVPB Last administered on 08/13/17 23:43; Admin Dose 83.333 MLS/HR; Start at 00:00 Amiodarone HCl (Cordarone) 200 mg BID PO ; Start 08/14/17 at 12:00 Hilario BOTELLO Aug 14, 2017 13:17
[2017-08-14] MEDS: VANCOMYCIN 1.25 GM in SOD CHLORIDE 0.9% 250 ML IVPB SCH ×2 (13:23→23:42)
[2017-08-14] MEDS: AMIODARONE 200 MG TAB PO SCH ×2 (13:57→21:01)
--- NOTE | 2017-08-14 14:34 | PN ---
Date/Time of Note Date/Time of Note DATE: 08/14/17 TIME: 14:16 Assessment/Plan VTE Prophylaxis VTE Prophylaxis Intervention: SCD's Lines/Catheters IV Catheter Type (from Nrs): Central Line Central line still needed: Yes (IV access) Urinary Cath still in place: Yes Reason Cath still needed: other (indicate) (Aggressive diuresis) Assessment/Plan Assessment/Plan 51 year old female with: 1. Postop anastomotic leak with sepsis, status post ex lap with drainage of abscesses, drain placement, partial colectomy and colostomy POD#9 Status post Left hemicolectomy for sigmoid adenocarcinoma/mass POD#17 Intraoperative/intraperitoneal cultures positive for E. coli, enterococcus, staph aureus. Patient on appropriate antibiotics based on previous cultures, leukocytosis improving, per infectious disease, no change in antibiotics. Blood cultures, UA and urine culture NGTD. She remains afebrile Patient on regular diet per Dr. Aldana. Trying to encourage physical therapy and out of bed to chair at least. 2. S/p Acute respiratory failure, patient extubated a few days ago. Status post diuresis with Bumex drip, she improved volume status She is getting diuresis Bumex and also getting albumin. Appreciate recommendations from nephrology and pulmonary. Continue IV antibiotics. 3. Atrial fibrillation, chronic, patient had an episode of atrial fibrillation yesterday likely related to aggressive diuresis and electrolyte imbalance according to cardiology. She is back in sinus rhythm. She was put on low-dose amiodarone p.o. Appreciate cardiology recommendations. Anticoagulation discontinued, discussed with cardiology for now will just leave her off anticoagulation for the remainder of her postoperative course. Electrolyte repletion as needed. 4. Chronic congestive heart failure, chronic diastolic dysfunction and ejection fraction of 55% on latest outpatient echocardiogram in January 2017 and confirmed to be 50% on this admission. s/p left thoracentesis last week with removal of 400 cc Current aggressive diuresis with Bumex and albumin. 5. Acute kidney injury, in setting of sepsis, also had the contrast studies 2. Resolved, renal function back to normal. Leal catheter in place. Adequate urine output, patient off fluids, s/p Bumex drip yesterday and now on scheduled doses of Bumex for diuresis. Follow-up recommendations from nephrology, Dr. Kiser 6. Anemia, acute on chronic, postop: Hemoglobin seems to be trending down, hemoglobin today is 8.0. We will continue to monitor closely. No acute bleeding noted. 7. Hypertension, all antihypertensive on hold for now while patient being aggressively diuresed. Prophylaxis: Off anticoagulation, SCDs, Pepcid for GI prophylaxis. Disposition: Continue volume management, renal function back to normal. Continue IV antibiotics. Blood cultures, UA and urine cultures NGTD. PT/OT. Subjective 24 Hr Interval Summary Free Text/Dictation Patient feels better, WBC finally coming down, she has been diuresed very well over the past 24 hours. She will be switched to Bumex 2 mg IV every 12. Started physical therapy today, but reports has been eating better. Still with diffuse abdominal pain especially after physical therapy. Exam/Review of Systems Vital Signs Vitals Vital Signs Date Time Temp Pulse Resp B/P Pulse Ox O2 Delivery O2 Flow Rate FiO2 08/14/17 12:01 92 08/14/17 07:50 98.0 18 126/68 98 08/14/17 04:57 2.0 08/13/17 22:59 Nasal Cannula Intake and Output 08/13/17 08/13/17 08/14/17 15:00 23:00 07:00 Intake Total 300 ml 1235 ml 1450 ml Output Total 3620 ml 8130 ml Balance 300 ml -2385 ml -6680 ml Exam Constitutional: alert, obese, oriented, well developed Respiratory: diminished breath sounds (At the bases bilaterally), normal air movement Cardiovascular: nl pulses, regular rate and rhythm Gastrointestinal: other (Colostomy bag working well, left VITA drain with brown milky substance still draining), soft Musculoskeletal: swelling (Much improved anasarca, more pronounced on the lower extremities currently) Extremities: edema (Lower extremity bilaterally at least +4), normal pulses, other (No clubbing or cyanosis) Neurological: [employer] 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 intact, lethargic, nl mental status, nl speech Results Result Diagram: 08/14/17 0617 08/14/17 0617 Results 24 hrs Laboratory Tests Test 08/14/17 06:17 08/14/17 11:20 White Blood Count 11.4 H Red Blood Count 3.02 L Hemoglobin 8.0 L Hematocrit 25.6 L Mean Corpuscular Volume 84.8 Mean Corpuscular Hemoglobin 26.5 L Mean Corpuscular Hemoglobin Concent 31.3 L Red Cell Distribution Width 22.3 H Platelet Count 586 H Mean Platelet Volume 10.1 Neutrophils % 81.2 H Lymphocytes % 9.0 L Monocytes % 8.0 Eosinophils % 1.1 Basophils % 0.2 Nucleated Red Blood Cells % 0.0 Neutrophils # 9.3 H Lymphocytes # 1.0 Monocytes # 0.9 Eosinophils # 0.1 Basophils # 0.0 Nucleated Red Blood Cells # 0.0 Sodium Level 136 Potassium Level 3.2 L Chloride Level 89 #L Carbon Dioxide Level 41 *H Anion Gap 9 Blood Urea Nitrogen 6 L Creatinine 0.64 Glucose Level 118 Calcium Level 7.3 L Phosphorus Level 2.8 Magnesium Level 1.4 L Vancomycin Level Trough 15.3 Medications Medications Current Medications Acetaminophen (Tylenol Tab) 650 mg Q4H PRN PO pain/fever; Start 07/24/17 at 07 :00; Status Future Hold Phenol (Chloraseptic Throat [place]) 2 spray Q2H PRN MT SORE THROAT Last administered on 07/29/17 18:10; Admin Dose 2 SPRAY; Start 07/29/17 at 13:00 Diphenhydramine HCl (Benadryl) 25 mg Q6H PRN IV SLEEP Last administered on 08/01 00:19; Admin Dose 25 MG; Start 07/31/17 at 13:00 Chlorpromazine (Thorazine) 10 mg Q6 PRN IM HICCUPS Last administered on 21:21; Admin Dose 10 MG; Start 08/02/17 at 06:00 Loratadine (Claritin) 10 mg DAILY NGT Last administered on 08/14/17 10:25; Admin Dose 10 MG; Start 08/04/17 at 09:00 Hydromorphone HCl 0.5 mg 0.5 mg Q2H PRN IV PAIN Last administered on 11:11; Admin Dose 0.5 MG; Start 08/05/17 at 22:30 Meropenem/Sodium Chloride (Merrem 1 Gm/50 ml (Pmx)) 50 ml @ 100 mls/hr Q12 IVPB Last administered on 08/14/17 11:13; Admin Dose 100 MLS/HR; Start at 21:00 Hydralazine HCl (Apresoline) 10 mg Q6H PRN IV sbp>170 Last administered on 14:18; Admin Dose 10 MG; Start 08/07/17 at 18:00 Famotidine (Pepcid Iv) 20 mg BID IV Last administered on 08/14/17 10:25; Admin Dose 20 MG; Start 08/09/17 at 09:00 Lisinopril (Zestril) 20 mg DAILY PO Last administered on 08/14/17 10:25; Admin Dose 20 MG; Start 08/10/17 at 10:30 Acetaminophen 650 mg 650 mg Q4H PRN PO PAIN AND OR ELEVATED TEMP Last administered on 08/14/17 11:12; Admin Dose 650 MG; Start 08/10/17 at 10:30 Albumin Human (Albumin Human 25%) 100 ml @ 100 mls/hr Q8H IV Last administered on 08/14/17 13:24; Admin Dose 100 MLS/HR; Start 08/11/17 at 12: 30; Stop 08/15/17 at 12:29 Ondansetron HCl 4 mg 4 mg Q6H PRN IV NAUSEA AND/OR VOMITING Last administered on 08/14/17 11:11; Admin Dose 4 MG; Start 08/12/17 at 13:00 Vancomycin HCl/ Sodium Chloride (Vancocin/NS) 250 ml @ 83.333 mls/ hr Q12H IVPB Last administered on 08/14/17 13:23; Admin Dose 83.333 MLS/HR; Start at 00:00 Amiodarone HCl (Cordarone) 200 mg BID PO Last administered on 08/14/17 13:57 ; Admin Dose 200 MG; Start 08/14/17 at 12:00 RAE CALVO Aug 14, 2017 14:27
[2017-08-14] MEDS: LEVALBUTEROL (NEB) 0.63 MG/3 ML AMP HHN PRN (21:11)
[2017-08-15] VITALS (13 sets, daily range): BP systolic 110–144; BP diastolic 53–77; PULSE 91–97; RESP 18–22
[2017-08-15] MEDS: HYDROmorphONE 0.5 MG/0.5 ML SYG IV PRN ×9 (02:12→22:59)
[2017-08-15] MEDS: ONDANSETRON 4 MG INJ IV PRN ×2 (04:33→18:12)
[2017-08-15] MEDS: ALBUMIN HUMAN 25% 100 ML IV SCH (04:33)
[2017-08-15] MEDS: BUMETANIDE 1 MG INJ IV SCH (05:50)
[2017-08-15 06:26] LABS: ABNORMAL IP MESSAGE 1; HEMATOCRIT 24.4 % (37.0-47.0); HEMOGLOBIN 7.7 g/dl (12.0-16.0); MEAN CORPUSCULAR HEMOGLOBIN 26.6 pg (29.0-33.0); MEAN CORPUSCULAR HGB CONC 31.6 g/dl (32.0-37.0); MEAN CORPUSCULAR VOLUME 84.1 fl (82.0-101.0); MEAN PLATELET VOLUME 10.1 fl (7.4-10.4); PLATELET COUNT 564 10^3/UL (140-415); RED CELL DISTRIBUTION WIDTH 22.7 % (11.5-14.5); WHITE BLOOD COUNT 11.6 10^3/ul (4.8-10.8)
[2017-08-15 06:40] LABS: POSITIVE DIFF @See below
[2017-08-15 06:51] LABS: INR 1.21; PROTIME 15.4 Sec (12.2-14.2); PT RATIO 1.2
[2017-08-15 06:52] LABS: PARTIAL THROMBOPLASTIN TIME 29.5 Sec (25.0-35.0)
[2017-08-15 06:53] LABS: ALBUMIN 2.9 g/dl (3.3-4.9); ALBUMIN/GLOBULIN RATIO 1.26; BILIRUBIN,INDIRECT 0.8 mg/dl (0-1.1); BILIRUBIN,TOTAL 0.8 mg/dl (0.2-1.3); CALCIUM 7.6 mg/dl (8.4-10.2); CREATININE 0.64 mg/dl (0.44-1.00); POTASSIUM 3.2 mmol/L (3.5-5.1); TOTAL PROTEIN 5.2 g/dl (6.1-8.1)
[2017-08-15 07:01] LABS: MAGNESIUM 1.6 mg/dl (1.7-2.5); PHOSPHORUS 2.9 mg/dl (2.5-4.9)
--- NOTE | 2017-08-15 08:33 | PN ---
Date/Time of Note Date/Time of Note DATE: 08/15/17 TIME: 08:31 Assessment/Plan VTE Prophylaxis VTE Prophylaxis Intervention: SCD's Lines/Catheters IV Catheter Type (from Nrs): Central Line Central line still needed: Yes Urinary Cath still in place: Yes Reason Cath still needed: urinary retention Assessment/Plan Chief Complaint/Hosp Course 51 yo F with bleeding colon cancer taken to the OR for urgent resection with primary anastomosis postop course was ok and was tolerating clears until she develop afib with RVR and diaphoresis was transferred to the ICU, she developed ileus and emesis, CT scan showed anastomotic leak patient taken to the OR for washout and colostomy placement. was on pressors for one night now off. Problems: Assessment/Plan drain output decreasing possible dc drains tomorrow dc valladares tomorrow depending on physical therapy disposition planning may need short term skill nursing facility Subjective 24 Hr Interval Summary Free Text/Dictation slow and steady improvement, tolerating diet, colostomy with output Exam/Review of Systems Vital Signs Vitals Vital Signs Date Time Temp Pulse Resp B/P Pulse Ox O2 Delivery O2 Flow Rate FiO2 08/15/17 08:08 97 08/15/17 04:09 98.3 19 113/66 98 08/15/17 01:19 2.0 08/14/17 21:15 Nasal Cannula Intake and Output 08/14/17 08/14/17 08/15/17 15:00 23:00 07:00 Intake Total 2900 ml 1350 ml Output Total 1350 ml 1670 ml Balance 1550 ml -320 ml Exam viable colostomy drains in place Results Result Diagram: 08/15/17 0544 08/15/17 0543 Results 24 hrs Laboratory Tests Test 08/14/17 11:20 08/15/17 05:43 08/15/17 05:44 Vancomycin Level Trough 15.3 Prothrombin Time 15.4 H Prothrombin Time Ratio 1.2 INR International Normalized Ratio 1.21 Activated Partial Thromboplast Time 29.5 Sodium Level 135 Potassium Level 3.2 L Chloride Level 86 L Carbon Dioxide Level 40 H Anion Gap 12 Blood Urea Nitrogen 8 Creatinine 0.64 Glucose Level 107 Calcium Level 7.6 L Phosphorus Level 2.9 Magnesium Level 1.6 L Total Bilirubin 0.8 Direct Bilirubin 0.00 Indirect Bilirubin 0.8 Aspartate Amino Transf (AST/SGOT) 31 Alanine Aminotransferase (ALT/SGPT) 34 Alkaline Phosphatase 69 Total Protein 5.2 L Albumin 2.9 L Globulin 2.30 Albumin/Globulin Ratio 1.26 White Blood Count 11.6 H Red Blood Count 2.90 L Hemoglobin 7.7 L Hematocrit 24.4 L Mean Corpuscular Volume 84.1 Mean Corpuscular Hemoglobin 26.6 L Mean Corpuscular Hemoglobin Concent 31.6 L Red Cell Distribution Width 22.7 H Platelet Count 564 H Mean Platelet Volume 10.1 Neutrophils % Eosinophils % Nucleated Red Blood Cells % 0.0 Neutrophils # Eosinophils # Medications Medications Current Medications Acetaminophen (Tylenol Tab) 650 mg Q4H PRN PO pain/fever; Start 07/24/17 at 07 :00; Status Future Hold Phenol (Chloraseptic Throat [place]) 2 spray Q2H PRN MT SORE THROAT Last administered on 07/29/17 18:10; Admin Dose 2 SPRAY; Start 07/29/17 at 13:00 Diphenhydramine HCl (Benadryl) 25 mg Q6H PRN IV SLEEP Last administered on 08/01 00:19; Admin Dose 25 MG; Start 07/31/17 at 13:00 Chlorpromazine (Thorazine) 10 mg Q6 PRN IM HICCUPS Last administered on 21:21; Admin Dose 10 MG; Start 08/02/17 at 06:00 Loratadine (Claritin) 10 mg DAILY NGT Last administered on 08/14/17 10:25; Admin Dose 10 MG; Start 08/04/17 at 09:00 Hydromorphone HCl 0.5 mg 0.5 mg Q2H PRN IV PAIN Last administered on 02:12; Admin Dose 0.5 MG; Start 08/05/17 at 22:30 Meropenem/Sodium Chloride (Merrem 1 Gm/50 ml (Pmx)) 50 ml @ 100 mls/hr Q12 IVPB Last administered on 08/14/17 21:07; Admin Dose 100 MLS/HR; Start at 21:00 Hydralazine HCl (Apresoline) 10 mg Q6H PRN IV sbp>170 Last administered on 14:18; Admin Dose 10 MG; Start 08/07/17 at 18:00 Famotidine (Pepcid Iv) 20 mg BID IV Last administered on 08/14/17 21:02; Admin Dose 20 MG; Start 08/09/17 at 09:00 Lisinopril (Zestril) 20 mg DAILY PO Last administered on 08/14/17 10:25; Admin Dose 20 MG; Start 08/10/17 at 10:30 Acetaminophen 650 mg 650 mg Q4H PRN PO PAIN AND OR ELEVATED TEMP Last administered on 08/14/17 22:17; Admin Dose 650 MG; Start 08/10/17 at 10:30 Albumin Human (Albumin Human 25%) 100 ml @ 100 mls/hr Q8H IV Last administered on 08/15/17 04:33; Admin Dose 100 MLS/HR; Start 08/11/17 at 12: 30; Stop 08/15/17 at 12:29 Ondansetron HCl 4 mg 4 mg Q6H PRN IV NAUSEA AND/OR VOMITING Last administered on 08/15/17 04:33; Admin Dose 4 MG; Start 08/12/17 at 13:00 Vancomycin HCl/ Sodium Chloride (Vancocin/NS) 250 ml @ 83.333 mls/ hr Q12H IVPB Last administered on 08/14/17 23:42; Admin Dose 83.333 MLS/HR; Start at 00:00 Amiodarone HCl (Cordarone) 200 mg BID PO Last administered on 08/14/17 21:01 ; Admin Dose 200 MG; Start 08/14/17 at 12:00 Hilario BOTELLO Aug 15, 2017 08:33
[2017-08-15 08:37] LABS: ANISOCYTOSIS 2+ (0-0); EOSINOPHILS % (M) 1 % (0-7); ERYTHROBLAST% (NRBC) (M) 2 % (0-0); MICROCYTOSIS 1+ (0-0); MONOCYTES % (M) 6 % (0-11); PLATELET ESTIMATE NORMAL; POLYCHROMASIA 3+ (0-0); REACTIVE LYMPHOCYTES% (M) 1 % (0-0)
[2017-08-15] MEDS: MEROPENEM 1 GM/50ML(PMX) 50 ML IVPB SCH ×2 (09:08→20:57)
[2017-08-15] MEDS: AMIODARONE 200 MG TAB PO SCH ×2 (09:10→21:15)
[2017-08-15] MEDS: FAMOTIDINE 20 MG INJ IV SCH (09:10)
[2017-08-15] MEDS: LISINOPRIL 20 MG TAB PO SCH (09:11)
[2017-08-15] MEDS: LORATADINE 10 MG TAB NGT SCH (09:11)
--- NOTE | 2017-08-15 10:23 | CONS ---
Date/Time of Note Date/Time of Note DATE: 08/15/17 TIME: 10:20 Assessment/Plan Assessment/Plan Additional Assessment/Plan 1. Oliguric EJ due to ATN from Shock- Multifactorial septic from peritonitis + Hemorrhagic- Improving, making good urine 2. Acute hyperkalemia due to EJ- Resolved 3. Metabolic acidosis with lactic acidosis- Improved much better, 4. acute resp failure, possible Asp PNA vs HCAP - pt remained on ventilator post operatively ,s/p US throacentesis 400 cc removed from left chest on - s/p extubation on 08/09/17 5. Septic shock requiring pressors, now off levophed 6. Status post Left hemicolectomy for sigmoid adenocarcinoma/mass POD#7, s/p total of 4 units pRBC since admission. - again pt underwent Exploratory laparotomy with intra- abdominal abscess drainage, Placement of percutaneous Maurisio drains #19 x2. , Partial colectomy.Formation of end colostomy with Corona's pouch. on 08/05/17 7. Atrial fibrillation 8. Chronic diastolic heart failure with EF 55% 9. Hypocalcemia with hypoalbuminemia 10. Hypernatremia - resolved with D5W Plan: - s/p Bumex gtt for 12 hr on 08/13/17- now on Bumex 2 mg iV BID- U/o 2.7 liter , Cr stable, pt HCo3 high - will change to bumex 1 mg IV daily - continue IV albumin as ordered( to be finish on 08/15/17) - will replace magnesium sulfate 2 gram iv x 1, KCl 30mEQ IV x 1 dose today Monitor electrolytes and Replace as needed will continue to follow up along with other subspecialist Consultation Date/Type/Reason Admit Date/Time Jul 24, 2017 at 06:16 Initial Consult Date 08/05/17 Type of Consultation: NEPHROLOGY Referring Provider: RAE CALVO 24 HR Interval Summary Free Text/Dictation Hco3 stable, made good urine output 2.7 Liter, Cr nromal< HCo3 stable with IV bumex 2 mg BID , BP stable Exam/Review of Systems Vital Signs Vitals Vital Signs Date Time Temp Pulse Resp B/P Pulse Ox O2 Delivery O2 Flow Rate FiO2 08/15/17 08:08 97 08/15/17 08:00 97.7 21 124/53 96 08/15/17 01:19 2.0 11/15/17 21:15 Nasal Cannula Intake and Output 08/14/17 08/14/17 08/15/17 15:00 23:00 07:00 Intake Total 2900 ml 1350 ml Output Total 1350 ml 1670 ml Balance 1550 ml -320 ml Exam GENERAL: alert, awake, No acute distress HEENT: CHANDRAKANT, EOMI CHEST: Rise symmetrical. Breath sounds diminished to bases. HEART: S1, S2. ABDOMEN: Soft, bowel tones present. back swelling + EXTREMITIES: With bilateral edema lower extremities.2+ + valladares catheter Results Result Diagram: 08/15/17 0544 08/15/17 0543 Results 24 hrs Laboratory Tests Test 08/14/17 11:20 08/15/17 05:43 08/15/17 05:44 Vancomycin Level Trough 15.3 Prothrombin Time 15.4 H Prothrombin Time Ratio 1.2 INR International Normalized Ratio 1.21 Activated Partial Thromboplast Time 29.5 Sodium Level 135 Potassium Level 3.2 L Chloride Level 86 L Carbon Dioxide Level 40 H Anion Gap 12 Blood Urea Nitrogen 8 Creatinine 0.64 Glucose Level 107 Calcium Level 7.6 L Phosphorus Level 2.9 Magnesium Level 1.6 L Total Bilirubin 0.8 Direct Bilirubin 0.00 Indirect Bilirubin 0.8 Aspartate Amino Transf (AST/SGOT) 31 Alanine Aminotransferase (ALT/SGPT) 34 Alkaline Phosphatase 69 Total Protein 5.2 L Albumin 2.9 L Globulin 2.30 Albumin/Globulin Ratio 1.26 White Blood Count 11.6 H Red Blood Count 2.90 L Hemoglobin 7.7 L Hematocrit 24.4 L Mean Corpuscular Volume 84.1 Mean Corpuscular Hemoglobin 26.6 L Mean Corpuscular Hemoglobin Concent 31.6 L Red Cell Distribution Width 22.7 H Platelet Count 564 H Mean Platelet Volume 10.1 Neutrophils % Segmented Neutrophils % (Manual) 47 Band Neutrophils % (Manual) 28 H Lymphocytes % (Manual) 17 Reactive Lymphocytes % (Manual) 1 H Monocytes % (Manual) 6 Eosinophils % Eosinophils % (Manual) 1 Nucleated Red Blood Cells % 2 H Neutrophils # Neutrophils # (Manual) 5.8 Band Neutrophils # 3.2 H Absolute Lymphocytes (Manual) 1.9 Reactive Lymphocytes # 0.1 H Absolute Monocytes (Manual) 0.6 Eosinophils # Platelet Estimate NORMAL Polychromasia 3+ Anisocytosis 2+ Microcytosis 1+ Medications Medications Current Medications Acetaminophen (Tylenol Tab) 650 mg Q4H PRN PO pain/fever; Start 07/24/17 at 07 :00; Status Future Hold Phenol (Chloraseptic Throat [place]) 2 spray Q2H PRN MT SORE THROAT Last administered on 07/29/17 18:10; Admin Dose 2 SPRAY; Start 07/29/17 at 13:00 Diphenhydramine HCl (Benadryl) 25 mg Q6H PRN IV SLEEP Last administered on 08/01 00:19; Admin Dose 25 MG; Start 07/31/17 at 13:00 Chlorpromazine (Thorazine) 10 mg Q6 PRN IM HICCUPS Last administered on 21:21; Admin Dose 10 MG; Start 08/02/17 at 06:00 Loratadine (Claritin) 10 mg DAILY NGT Last administered on 08/15/17 09:11; Admin Dose 10 MG; Start 08/04/17 at 09:00 Hydromorphone HCl 0.5 mg 0.5 mg Q2H PRN IV PAIN Last administered on 09:08; Admin Dose 0.5 MG; Start 08/05/17 at 22:30 Meropenem/Sodium Chloride (Merrem 1 Gm/50 ml (Pmx)) 50 ml @ 100 mls/hr Q12 IVPB Last administered on 08/15/17 09:08; Admin Dose 100 MLS/HR; Start at 21:00 Hydralazine HCl (Apresoline) 10 mg Q6H PRN IV sbp>170 Last administered on 14:18; Admin Dose 10 MG; Start 08/07/17 at 18:00 Famotidine (Pepcid Iv) 20 mg BID IV Last administered on 08/15/17 09:10; Admin Dose 20 MG; Start 08/09/17 at 09:00 Lisinopril (Zestril) 20 mg DAILY PO Last administered on 08/15/17 09:11; Admin Dose 20 MG; Start 08/10/17 at 10:30 Acetaminophen 650 mg 650 mg Q4H PRN PO PAIN AND OR ELEVATED TEMP Last administered on 08/14/17 22:17; Admin Dose 650 MG; Start 08/10/17 at 10:30 Albumin Human (Albumin Human 25%) 100 ml @ 100 mls/hr Q8H IV Last administered on 08/15/17 04:33; Admin Dose 100 MLS/HR; Start 08/11/17 at 12: 30; Stop 08/15/17 at 12:29 Ondansetron HCl 4 mg 4 mg Q6H PRN IV NAUSEA AND/OR VOMITING Last administered on 08/15/17 04:33; Admin Dose 4 MG; Start 08/12/17 at 13:00 Vancomycin HCl/ Sodium Chloride (Vancocin/NS) 250 ml @ 83.333 mls/ hr Q12H IVPB Last administered on 08/14/17 23:42; Admin Dose 83.333 MLS/HR; Start at 00:00 Amiodarone HCl 200 mg 200 mg BID PO Last administered on 08/15/17 09:10; Admin Dose 200 MG; Start 08/14/17 at 12:00 Magnesium Sulfate 50 ml @ 25 mls/hr ONCE ONCE IVPB ; Start 08/15/17 at 10:30; Stop 08/15/17 at 12:29; Status UNV Potassium Chloride/Sodium Chloride (KCl/NS) 165 ml @ 55 mls/hr ONCE ONCE IVPB ; Start 08/15/17 at 10:30; Stop 08/15/17 at 13:29; Status UNV MKEA ROBERTSON MD Aug 15, 2017 10:23
--- NOTE | 2017-08-15 10:25 | RADRPT ---
PROCEDURE: XR Chest. CLINICAL INDICATION: Shortness of breath TECHNIQUE: Single AP view of the chest was obtained COMPARISON: 03/10/2014 FINDINGS: Right central line coils over the right neck with tip terminating at the SVC/RA junction. Heart is borderline enlarged. Tortuous aorta. Blunting of the bilateral costophrenic angles. No consolidation. No pneumothorax. No acute osseous abnormality. IMPRESSION: Mild cardiomegaly with congestive change. Small pleural effusions bilaterally. RPTAT: AAEE Rena Samano Physician Date Time Electronically viewed and signed by Rena Samano Physician on 08/15/2017 10:25 [place]/
[2017-08-15] MEDS ORDERED: DEXTROSE 5% IVPB ONE (10:30)
[2017-08-15] MEDS ORDERED: MAGNESIUM SULFATE 2 GM/50 ML 50 ML IVPB ONE (10:30)
[2017-08-15] MEDS ORDERED: POTASSIUM CHLORIDE IVPB ONE (10:30)
[2017-08-15] MEDS: VANCOMYCIN 1.25 GM in SOD CHLORIDE 0.9% 250 ML IVPB SCH ×2 (12:20→23:00)
--- NOTE | 2017-08-15 13:49 | CONS ---
Date/Time of Note Date/Time of Note DATE: 08/15/17 TIME: 13:48 Consult Date/Type/Reason Admit Date/Time Jul 24, 2017 at 06:16 Initial Consult Date 08/05/17 Type of Consultation: ID Ordering Provider: RAE CALVO Objective Vital Signs Date Time Temp Pulse Resp B/P Pulse Ox O2 Delivery O2 Flow Rate FiO2 08/15/17 12:01 93 08/15/17 11:35 98.4 22 122/62 97 08/15/17 08:00 Nasal Cannula 2.0 Intake and Output 08/14/17 08/14/17 08/15/17 15:00 23:00 07:00 Intake Total 2900 ml 1350 ml Output Total 1350 ml 1670 ml Balance 1550 ml -320 ml Results/Medications Result Diagram: 08/15/17 0544 08/15/17 0543 Results 24 hrs Laboratory Tests Test 08/15/17 05:43 08/15/17 05:44 Prothrombin Time 15.4 H Prothrombin Time Ratio 1.2 INR International Normalized Ratio 1.21 Activated Partial Thromboplast Time 29.5 Sodium Level 135 Potassium Level 3.2 L Chloride Level 86 L Carbon Dioxide Level 40 H Anion Gap 12 Blood Urea Nitrogen 8 Creatinine 0.64 Glucose Level 107 Calcium Level 7.6 L Phosphorus Level 2.9 Magnesium Level 1.6 L Total Bilirubin 0.8 Direct Bilirubin 0.00 Indirect Bilirubin 0.8 Aspartate Amino Transf (AST/SGOT) 31 Alanine Aminotransferase (ALT/SGPT) 34 Alkaline Phosphatase 69 Total Protein 5.2 L Albumin 2.9 L Globulin 2.30 Albumin/Globulin Ratio 1.26 White Blood Count 11.6 H Red Blood Count 2.90 L Hemoglobin 7.7 L Hematocrit 24.4 L Mean Corpuscular Volume 84.1 Mean Corpuscular Hemoglobin 26.6 L Mean Corpuscular Hemoglobin Concent 31.6 L Red Cell Distribution Width 22.7 H Platelet Count 564 H Mean Platelet Volume 10.1 Neutrophils % Segmented Neutrophils % (Manual) 47 Band Neutrophils % (Manual) 28 H Lymphocytes % (Manual) 17 Reactive Lymphocytes % (Manual) 1 H Monocytes % (Manual) 6 Eosinophils % Eosinophils % (Manual) 1 Nucleated Red Blood Cells % 2 H Neutrophils # Neutrophils # (Manual) 5.8 Band Neutrophils # 3.2 H Absolute Lymphocytes (Manual) 1.9 Reactive Lymphocytes # 0.1 H Absolute Monocytes (Manual) 0.6 Eosinophils # Platelet Estimate NORMAL Polychromasia 3+ Anisocytosis 2+ Microcytosis 1+ Medications Current Medications Acetaminophen (Tylenol Tab) 650 mg Q4H PRN PO pain/fever; Start 07/24/17 at 07 :00; Status Future Hold Phenol (Chloraseptic Throat [place]) 2 spray Q2H PRN MT SORE THROAT Last administered on 07/29/17 18:10; Admin Dose 2 SPRAY; Start 07/29/17 at 13:00 Diphenhydramine HCl (Benadryl) 25 mg Q6H PRN IV SLEEP Last administered on 08/01 00:19; Admin Dose 25 MG; Start 07/31/17 at 13:00 Chlorpromazine (Thorazine) 10 mg Q6 PRN IM HICCUPS Last administered on 21:21; Admin Dose 10 MG; Start 08/02/17 at 06:00 Loratadine (Claritin) 10 mg DAILY NGT Last administered on 08/15/17 09:11; Admin Dose 10 MG; Start 08/04/17 at 09:00 Hydromorphone HCl 0.5 mg 0.5 mg Q2H PRN IV PAIN Last administered on 13:15; Admin Dose 0.5 MG; Start 08/05/17 at 22:30 Meropenem/Sodium Chloride (Merrem 1 Gm/50 ml (Pmx)) 50 ml @ 100 mls/hr Q12 IVPB Last administered on 08/15/17 09:08; Admin Dose 100 MLS/HR; Start at 21:00 Hydralazine HCl (Apresoline) 10 mg Q6H PRN IV sbp>170 Last administered on 14:18; Admin Dose 10 MG; Start 08/07/17 at 18:00 Famotidine (Pepcid Iv) 20 mg BID IV Last administered on 08/15/17 09:10; Admin Dose 20 MG; Start 08/09/17 at 09:00 Lisinopril (Zestril) 20 mg DAILY PO Last administered on 08/15/17 09:11; Admin Dose 20 MG; Start 08/10/17 at 10:30 Acetaminophen (Tylenol Tab) 650 mg Q4H PRN PO PAIN AND OR ELEVATED TEMP Last administered on 08/14/17 22:17; Admin Dose 650 MG; Start 08/10/17 at 10:30 Ondansetron HCl 4 mg 4 mg Q6H PRN IV NAUSEA AND/OR VOMITING Last administered on 08/15/17 04:33; Admin Dose 4 MG; Start 08/12/17 at 13:00 Vancomycin HCl/ Sodium Chloride (Vancocin/NS) 250 ml @ 83.333 mls/ hr Q12H IVPB Last administered on 08/15/17 12:20; Admin Dose 83.333 MLS/HR; Start at 00:00 Amiodarone HCl (Cordarone) 200 mg BID PO Last administered on 08/15/17 09:10 ; Admin Dose 200 MG; Start 08/14/17 at 12:00 Bumetanide (Bumex) 1 mg DAILY IV ; Start 08/16/17 at 09:00 Assessment/Plan Chief Complaint/Hosp Course SUBJECTIVE: No acute changes overnight. Alert, feels better, looks comfortable , afebrile MICROBIOLOGY: Abdominal wound culture on admission on 08/05 grew E. coli, enterococcus species and oxacillin-sensitive Staphylococcus aureus. Aerobic cultures grew Bacteroides fragilis; fluid cultures have been negative. INDWELLINGS: The patient has Leal, right IJ triple-lumen catheter. ANTIMICROBIALS: 1. Vancomycin. 2. Merrem. ALLERGIES: 1. PENICILLIN. 2. SULFA. 3. AMOXICILLIN. PHYSICAL EXAMINATION: GENERAL: This is an obese, well-developed, middle-aged white woman who is alert , in no distress. HEENT: Head atraumatic, normocephalic. Sclerae anicteric. Buccal mucosa dry. NECK: Supple. CHEST: Rise symmetrical. Breath sounds diminished to bases. HEART: S1, S2. ABDOMEN: Soft, bowel tones present. EXTREMITIES: With bilateral edema lower extremities. ASSESSMENT: 1. SIRS with leukocytosis 2. Status post septic shock. 2. Status post respiratory failure. 3. Colon cancer, status post resection with primary anastomosis complicated by anastomotic leak, status post exploratory laparotomy and drainage of abscesses, partial colectomy with colostomy on 08/05/2017. 4. Left pleural effusion, status post thoracentesis. 5. Anemia. 6. Obesity. PLAN: The patient remains stable. WBC decreasing, repeat cx's negative, completing abx DW staff Problems: YG TARANGO NP Aug 15, 2017 13:49
--- NOTE | 2017-08-15 13:58 | PN ---
Date/Time of Note Date/Time of Note DATE: 08/15/17 TIME: 13:55 Assessment/Plan VTE Prophylaxis VTE Prophylaxis Intervention: SCD's Lines/Catheters IV Catheter Type (from Nrs): Central Line Central line still needed: Yes (IV access) Urinary Cath still in place: Yes Reason Cath still needed: other (indicate) (Diuresis) Assessment/Plan Assessment/Plan 51 year old female with: 1. Postop anastomotic leak with sepsis, status post ex lap with drainage of abscesses, drain placement, partial colectomy and colostomy POD#10 Status post Left hemicolectomy for sigmoid adenocarcinoma/mass POD#18 Intraoperative/intraperitoneal cultures positive for E. coli, enterococcus, staph aureus. Patient on appropriate antibiotics based on previous cultures, leukocytosis improving, per infectious disease, no change in antibiotics. Blood cultures, UA and urine culture NGTD. She remains afebrile, given the large amount of drainage from the VITA drain on the left and also potentially purulent nature of it, will send cultures. Patient on regular diet per Dr. Aldana. Trying to encourage physical therapy and out of bed to chair at least. 2. S/p Acute respiratory failure, patient extubated a few days ago. Status post diuresis with Bumex drip, she improved volume status She is getting diuresis Bumex and also getting albumin. Appreciate recommendations from nephrology and pulmonary. Continue IV antibiotics. 3. Atrial fibrillation, chronic, patient had an episode of atrial fibrillation yesterday likely related to aggressive diuresis and electrolyte imbalance according to cardiology. She is back in sinus rhythm. She was put on low-dose amiodarone p.o. Appreciate cardiology recommendations. Anticoagulation discontinued, discussed with cardiology for now will just leave her off anticoagulation for the remainder of her postoperative course. Electrolyte repletion as needed. 4. Chronic congestive heart failure, chronic diastolic dysfunction and ejection fraction of 55% on latest outpatient echocardiogram in January 2017 and confirmed to be 50% on this admission. s/p left thoracentesis last week with removal of 400 cc Current aggressive diuresis with Bumex and albumin. 5. Acute kidney injury, in setting of sepsis, also had the contrast studies 2. Resolved, renal function back to normal. Leal catheter in place. Adequate urine output, patient off fluids, s/p Bumex drip yesterday and now on scheduled doses of Bumex for diuresis. Follow-up recommendations from nephrology, Dr. Kiser 6. Anemia, acute on chronic, postop: Hemoglobin seems to be trending down, hemoglobin today is 7.7. We will repeat her hemoglobin later today, she may need transfusion overnight. We will continue to monitor closely. No acute bleeding noted. 7. Hypertension, all antihypertensive on hold for now while patient being aggressively diuresed. Prophylaxis: Off anticoagulation, SCDs, Pepcid for GI prophylaxis. Disposition: Continue volume management, renal function back to normal. Continue IV antibiotics. Blood cultures, UA and urine cultures NGTD. Follow- up cultures from left VITA drain PT/OT. Subjective 24 Hr Interval Summary Free Text/Dictation Patient feels better, she tries to eat a little more, she has been diuresing really well. It is noted that she has small amount of serosanguineous drainage from the right VITA however from the left VITA she has possibly purulent drainage in good amount. Patient remains afebrile, WBCs variable with occasional bandemia. Will send culture from VITA drain Exam/Review of Systems Vital Signs Vitals Vital Signs Date Time Temp Pulse Resp B/P Pulse Ox O2 Delivery O2 Flow Rate FiO2 08/15/17 12:01 93 08/15/17 11:35 98.4 22 122/62 97 08/15/17 08:00 Nasal Cannula 2.0 Intake and Output 08/14/17 08/14/17 08/15/17 15:00 23:00 07:00 Intake Total 2900 ml 1350 ml Output Total 1350 ml 1670 ml Balance 1550 ml -320 ml Exam Constitutional: alert, obese, oriented, well developed Respiratory: clear to auscultation, normal air movement Cardiovascular: nl pulses, regular rate and rhythm Gastrointestinal: soft, tender (Ongoing diffuse tenderness abdomen requiring Dilaudid) Musculoskeletal: nl extremities to inspection, swelling (Much improved anasarca ) Extremities: normal pulses Neurological: MEDICAL ATTENDANT II-XII intact, nl mental status, nl speech, other (Less lethargic) Results Result Diagram: 08/15/17 0544 08/15/17 0543 Results 24 hrs Laboratory Tests Test 08/15/17 05:43 08/15/17 05:44 Prothrombin Time 15.4 H Prothrombin Time Ratio 1.2 INR International Normalized Ratio 1.21 Activated Partial Thromboplast Time 29.5 Sodium Level 135 Potassium Level 3.2 L Chloride Level 86 L Carbon Dioxide Level 40 H Anion Gap 12 Blood Urea Nitrogen 8 Creatinine 0.64 Glucose Level 107 Calcium Level 7.6 L Phosphorus Level 2.9 Magnesium Level 1.6 L Total Bilirubin 0.8 Direct Bilirubin 0.00 Indirect Bilirubin 0.8 Aspartate Amino Transf (AST/SGOT) 31 Alanine Aminotransferase (ALT/SGPT) 34 Alkaline Phosphatase 69 Total Protein 5.2 L Albumin 2.9 L Globulin 2.30 Albumin/Globulin Ratio 1.26 White Blood Count 11.6 H Red Blood Count 2.90 L Hemoglobin 7.7 L Hematocrit 24.4 L Mean Corpuscular Volume 84.1 Mean Corpuscular Hemoglobin 26.6 L Mean Corpuscular Hemoglobin Concent 31.6 L Red Cell Distribution Width 22.7 H Platelet Count 564 H Mean Platelet Volume 10.1 Neutrophils % Segmented Neutrophils % (Manual) 47 Band Neutrophils % (Manual) 28 H Lymphocytes % (Manual) 17 Reactive Lymphocytes % (Manual) 1 H Monocytes % (Manual) 6 Eosinophils % Eosinophils % (Manual) 1 Nucleated Red Blood Cells % 2 H Neutrophils # Neutrophils # (Manual) 5.8 Band Neutrophils # 3.2 H Absolute Lymphocytes (Manual) 1.9 Reactive Lymphocytes # 0.1 H Absolute Monocytes (Manual) 0.6 Eosinophils # Platelet Estimate NORMAL Polychromasia 3+ Anisocytosis 2+ Microcytosis 1+ Medications Medications Current Medications Acetaminophen (Tylenol Tab) 650 mg Q4H PRN PO pain/fever; Start 07/24/17 at 07 :00; Status Future Hold Phenol (Chloraseptic Throat [place]) 2 spray Q2H PRN MT SORE THROAT Last administered on 07/29/17 18:10; Admin Dose 2 SPRAY; Start 07/29/17 at 13:00 Diphenhydramine HCl (Benadryl) 25 mg Q6H PRN IV SLEEP Last administered on 08/01 00:19; Admin Dose 25 MG; Start 07/31/17 at 13:00 Chlorpromazine (Thorazine) 10 mg Q6 PRN IM HICCUPS Last administered on 21:21; Admin Dose 10 MG; Start 08/02/17 at 06:00 Loratadine (Claritin) 10 mg DAILY NGT Last administered on 08/15/17 09:11; Admin Dose 10 MG; Start 08/04/17 at 09:00 Hydromorphone HCl 0.5 mg 0.5 mg Q2H PRN IV PAIN Last administered on 13:15; Admin Dose 0.5 MG; Start 08/05/17 at 22:30 Meropenem/Sodium Chloride (Merrem 1 Gm/50 ml (Pmx)) 50 ml @ 100 mls/hr Q12 IVPB Last administered on 08/15/17 09:08; Admin Dose 100 MLS/HR; Start at 21:00 Hydralazine HCl (Apresoline) 10 mg Q6H PRN IV sbp>170 Last administered on 14:18; Admin Dose 10 MG; Start 08/07/17 at 18:00 Famotidine (Pepcid Iv) 20 mg BID IV Last administered on 08/15/17 09:10; Admin Dose 20 MG; Start 08/09/17 at 09:00 Lisinopril (Zestril) 20 mg DAILY PO Last administered on 08/15/17 09:11; Admin Dose 20 MG; Start 08/10/17 at 10:30 Acetaminophen (Tylenol Tab) 650 mg Q4H PRN PO PAIN AND OR ELEVATED TEMP Last administered on 08/14/17 22:17; Admin Dose 650 MG; Start 08/10/17 at 10:30 Ondansetron HCl 4 mg 4 mg Q6H PRN IV NAUSEA AND/OR VOMITING Last administered on 08/15/17 04:33; Admin Dose 4 MG; Start 08/12/17 at 13:00 Vancomycin HCl/ Sodium Chloride (Vancocin/NS) 250 ml @ 83.333 mls/ hr Q12H IVPB Last administered on 08/15/17 12:20; Admin Dose 83.333 MLS/HR; Start at 00:00 Amiodarone HCl (Cordarone) 200 mg BID PO Last administered on 08/15/17 09:10 ; Admin Dose 200 MG; Start 08/14/17 at 12:00 Bumetanide (Bumex) 1 mg DAILY IV ; Start 08/16/17 at 09:00 RAE CALVO Aug 15, 2017 13:58
--- NOTE | 2017-08-15 18:51 | PN ---
Date/Time of Note Date/Time of Note DATE: 08/15/17 TIME: 18:49 Assessment/Plan VTE Prophylaxis VTE Prophylaxis Intervention: SCD's Lines/Catheters IV Catheter Type (from Nrsg): Central Line Central line still needed: No Urinary Cath still in place: Yes Reason Cath still needed: urinary retention Assessment/Plan Assessment/Plan Paroxysmal atrial fibrillation with rapid ventricular rates, currently sinus Acute decompensated systolic and diastolic congestive heart failure Low normal ejection fraction 50% Colon mass status post colon surgery July 26, 2017 and repeat August 05, 2017 Acute kidney injury, improved Sepsis Vent dependent respiratory failure, status post extubation -s/p episodes of paroxysmal atrial fibrillation > now in nsr ideally maintain potassium above 4.0 and magnesium above 2.0. Diuretics as per our nephrology colleagues. Will continue amiodarone to help maintain in sinus rhythm -keep off anticoagulation at this time Subjective 24 Hr Interval Summary Free Text/Dictation The aptient fairly stable today Exam/Review of Systems Vital Signs Vitals Vital Signs Date Time Temp Pulse Resp B/P Pulse Ox O2 Delivery O2 Flow Rate FiO2 08/15/17 16:36 92 08/15/17 15:18 98.7 22 144/64 95 08/15/17 08:00 Nasal Cannula 2.0 Intake and Output 08/14/17 08/14/17 08/15/17 15:00 23:00 07:00 Intake Total 2900 ml 1350 ml Output Total 1350 ml 1670 ml Balance 1550 ml -320 ml Results Result Diagram: 08/15/17 0544 08/15/17 0543 Results 24 hrs Laboratory Tests Test 08/15/17 05:43 08/15/17 05:44 Prothrombin Time 15.4 H Prothrombin Time Ratio 1.2 INR International Normalized Ratio 1.21 Activated Partial Thromboplast Time 29.5 Sodium Level 135 Potassium Level 3.2 L Chloride Level 86 L Carbon Dioxide Level 40 H Anion Gap 12 Blood Urea Nitrogen 8 Creatinine 0.64 Glucose Level 107 Calcium Level 7.6 L Phosphorus Level 2.9 Magnesium Level 1.6 L Total Bilirubin 0.8 Direct Bilirubin 0.00 Indirect Bilirubin 0.8 Aspartate Amino Transf (AST/SGOT) 31 Alanine Aminotransferase (ALT/SGPT) 34 Alkaline Phosphatase 69 Total Protein 5.2 L Albumin 2.9 L Globulin 2.30 Albumin/Globulin Ratio 1.26 White Blood Count 11.6 H Red Blood Count 2.90 L Hemoglobin 7.7 L Hematocrit 24.4 L Mean Corpuscular Volume 84.1 Mean Corpuscular Hemoglobin 26.6 L Mean Corpuscular Hemoglobin Concent 31.6 L Red Cell Distribution Width 22.7 H Platelet Count 564 H Mean Platelet Volume 10.1 Neutrophils % Segmented Neutrophils % (Manual) 47 Band Neutrophils % (Manual) 28 H Lymphocytes % (Manual) 17 Reactive Lymphocytes % (Manual) 1 H Monocytes % (Manual) 6 Eosinophils % Eosinophils % (Manual) 1 Nucleated Red Blood Cells % 2 H Neutrophils # Neutrophils # (Manual) 5.8 Band Neutrophils # 3.2 H Absolute Lymphocytes (Manual) 1.9 Reactive Lymphocytes # 0.1 H Absolute Monocytes (Manual) 0.6 Eosinophils # Platelet Estimate NORMAL Polychromasia 3+ Anisocytosis 2+ Microcytosis 1+ Medications Medications Current Medications Acetaminophen (Tylenol Tab) 650 mg Q4H PRN PO pain/fever; Start 07/24/17 at 07 :00; Status Future Hold Phenol (Chloraseptic Throat [place]) 2 spray Q2H PRN MT SORE THROAT Last administered on 07/29/17 18:10; Admin Dose 2 SPRAY; Start 07/29/17 at 13:00 Diphenhydramine HCl (Benadryl) 25 mg Q6H PRN IV SLEEP Last administered on 08/01 00:19; Admin Dose 25 MG; Start 07/31/17 at 13:00 Chlorpromazine (Thorazine) 10 mg Q6 PRN IM HICCUPS Last administered on 21:21; Admin Dose 10 MG; Start 08/02/17 at 06:00 Loratadine (Claritin) 10 mg DAILY NGT Last administered on 08/15/17 09:11; Admin Dose 10 MG; Start 08/04/17 at 09:00 Hydromorphone HCl 0.5 mg 0.5 mg Q2H PRN IV PAIN Last administered on 18:12; Admin Dose 0.5 MG; Start 08/05/17 at 22:30 Meropenem/Sodium Chloride (Merrem 1 Gm/50 ml (Pmx)) 50 ml @ 100 mls/hr Q12 IVPB Last administered on 08/15/17 09:08; Admin Dose 100 MLS/HR; Start at 21:00 Hydralazine HCl (Apresoline) 10 mg Q6H PRN IV sbp>170 Last administered on 14:18; Admin Dose 10 MG; Start 08/07/17 at 18:00 Famotidine (Pepcid Iv) 20 mg BID IV Last administered on 08/15/17 09:10; Admin Dose 20 MG; Start 08/09/17 at 09:00 Lisinopril (Zestril) 20 mg DAILY PO Last administered on 08/15/17 09:11; Admin Dose 20 MG; Start 08/10/17 at 10:30 Acetaminophen (Tylenol Tab) 650 mg Q4H PRN PO PAIN AND OR ELEVATED TEMP Last administered on 08/14/17 22:17; Admin Dose 650 MG; Start 08/10/17 at 10:30 Ondansetron HCl 4 mg 4 mg Q6H PRN IV NAUSEA AND/OR VOMITING Last administered on 08/15/17 18:12; Admin Dose 4 MG; Start 08/12/17 at 13:00 Vancomycin HCl/ Sodium Chloride (Vancocin/NS) 250 ml @ 83.333 mls/ hr Q12H IVPB Last administered on 08/15/17 12:20; Admin Dose 83.333 MLS/HR; Start at 00:00 Amiodarone HCl (Cordarone) 200 mg BID PO Last administered on 08/15/17 09:10 ; Admin Dose 200 MG; Start 08/14/17 at 12:00 Bumetanide (Bumex) 1 mg DAILY IV ; Start 08/16/17 at 09:00 MURPHY MARIANO MD Aug 15, 2017 18:51
[2017-08-15 19:38] LABS: HEMATOCRIT 27.5 % (37.0-47.0); HEMOGLOBIN 8.6 g/dl (12.0-16.0)
[2017-08-16] VITALS (14 sets, daily range): BP systolic 121–159; BP diastolic 53–74; PULSE 87–97; RESP 18–20
[2017-08-16] MEDS: HYDROmorphONE 0.5 MG/0.5 ML SYG IV PRN ×11 (01:12→22:15)
[2017-08-16] MEDS: PANTOPRAZOLE (EC) 40 MG TAB PO SCH (05:14)
[2017-08-16] MEDS: MEROPENEM 1 GM/50ML(PMX) 50 ML IVPB SCH ×2 (08:21→21:18)
[2017-08-16] MEDS: BUMETANIDE 1 MG INJ IV SCH (08:21)
[2017-08-16] MEDS: LISINOPRIL 20 MG TAB PO SCH (08:22)
[2017-08-16] MEDS: LORATADINE 10 MG TAB NGT SCH (08:22)
[2017-08-16] MEDS: AMIODARONE 200 MG TAB PO SCH ×2 (08:22→21:19)
[2017-08-16 08:25] LABS: ABNORMAL IP MESSAGE 1; HEMATOCRIT 26.1 % (37.0-47.0); HEMOGLOBIN 8.1 g/dl (12.0-16.0); MEAN CORPUSCULAR HEMOGLOBIN 26.2 pg (29.0-33.0); MEAN CORPUSCULAR VOLUME 84.5 fl (82.0-101.0); MEAN PLATELET VOLUME 10.2 fl (7.4-10.4); PLATELET COUNT 469 10^3/UL (140-415); RED BLOOD COUNT 3.09 10^6/ul (4.20-5.40); RED CELL DISTRIBUTION WIDTH 22.9 % (11.5-14.5)
[2017-08-16 08:28] LABS: POSITIVE DIFF @See below
[2017-08-16 08:47] LABS: MAGNESIUM 1.9 mg/dl (1.7-2.5); PHOSPHORUS 3.1 mg/dl (2.5-4.9)
[2017-08-16 08:54] LABS: ALBUMIN 2.7 g/dl (3.3-4.9); BILIRUBIN,INDIRECT 0.8 mg/dl (0-1.1); BILIRUBIN,TOTAL 0.8 mg/dl (0.2-1.3); CALCIUM 8.5 mg/dl (8.4-10.2); CREATININE 0.64 mg/dl (0.44-1.00); POTASSIUM 3.4 mmol/L (3.5-5.1); TOTAL PROTEIN 5.4 g/dl (6.1-8.1)
[2017-08-16 09:07] LABS: ANISOCYTOSIS 2+ (0-0); EOSINOPHILS % (M) 1 % (0-7); HYPOCHROMASIA 1+ (0-0); MICROCYTOSIS 2+ (0-0); MONOCYTES % (M) 11 % (0-11); PLATELET ESTIMATE INCREASED; POLYCHROMASIA 3+ (0-0)
[2017-08-16] MEDS ORDERED: POTASSIUM CHLORIDE (SR) 20 MEQ TAB PO STA (11:02)
--- NOTE | 2017-08-16 11:05 | PN ---
Date/Time of Note Date/Time of Note DATE: 08/16/17 TIME: 10:51 Assessment/Plan VTE Prophylaxis VTE Prophylaxis Intervention: SCD's Lines/Catheters IV Catheter Type (from Nrs): Central Line Central line still needed: Yes (For IV access) Urinary Cath still in place: Yes Reason Cath still needed: other (indicate) (diuresis) Assessment/Plan Assessment/Plan 51 year old female with: 1. Postop anastomotic leak with sepsis, status post ex lap with drainage of abscesses, drain placement, partial colectomy and colostomy POD#11 Status post Left hemicolectomy for sigmoid adenocarcinoma/mass POD#19 Intraoperative/intraperitoneal cultures positive for E. coli, enterococcus, staph aureus. Patient on appropriate antibiotics based on previous cultures, leukocytosis improving, per infectious disease, no change in antibiotics. Blood cultures, UA and urine culture NGTD. She remains afebrile, given the large amount of drainage from the VITA drain on the left and also potentially purulent nature of it, culture from left VITA drain pending Patient on regular diet per Dr. Aldana. Trying to encourage physical therapy and out of bed to chair at least. 2. S/p Acute respiratory failure, patient extubated a few days ago. Status post diuresis with Bumex drip, she improved volume status She is getting diuresis Bumex and also getting albumin on/off. Appreciate recommendations from nephrology and pulmonary. Continue IV antibiotics. 3. Atrial fibrillation, chronic, patient had an episode of atrial fibrillation 48 hours ago likely related to aggressive diuresis and electrolyte imbalance according to cardiology. She is back in sinus rhythm. She was put on low-dose amiodarone p.o., patient electrolytes also to be kept within normal Appreciate cardiology recommendations. Anticoagulation discontinued, discussed with cardiology for now will just leave her off anticoagulation for the remainder of her postoperative course. Electrolyte repletion today, patient to receive magnesium and potassium supplements. 4. Chronic congestive heart failure, chronic diastolic dysfunction and ejection fraction of 55% on latest outpatient echocardiogram in January 2017 and confirmed to be 50% on this admission. s/p left thoracentesis last week with removal of 400 cc Current aggressive diuresis with Bumex and albumin. 5. Acute kidney injury, in setting of sepsis, also had the contrast studies 2. Resolved, renal function back to normal. Leal catheter in place. Adequate urine output, patient off fluids, s/p Bumex drip and now on scheduled doses of Bumex for diuresis. Follow-up recommendations from nephrology, Dr. Kiser 6. Anemia, acute on chronic, postop: Hemoglobin seems to be trending down, hemoglobin today is 8.1. Monitor hemoglobin daily, may need blood transfusion. No acute bleeding noted. 7. Hypertension, all antihypertensive on hold for now while patient being aggressively diuresed. Prophylaxis: Off anticoagulation, SCDs, Pepcid for GI prophylaxis. Disposition: Continue volume management, renal function back to normal. Please keeping telemetry for now, patient still in serious condition with high risk to go in and out of atrial fibrillation and or respiratory distress. Continue IV antibiotics. Blood cultures, UA and urine cultures NGTD. Follow- up cultures from left VITA drain Continue PT/OT. Subjective 24 Hr Interval Summary Free Text/Dictation Patient feels better today, she reports that her pain is around the colostomy site, still requiring morphine every 2 hours. The nurses are still noting significant amount of drainage from the left VITA drain looking possibly purulent , cultures are pending. Scant drainage serosanguineous from the right VITA. Patient remains afebrile, she still has a left shift on her WBC. Otherwise participating with physical therapy and tolerating p.o. Exam/Review of Systems Vital Signs Vitals Vital Signs Date Time Temp Pulse Resp B/P Pulse Ox O2 Delivery O2 Flow Rate FiO2 08/16/17 08:00 Nasal Cannula 2.0 08/16/17 08:00 87 08/16/17 07:48 98.0 18 121/56 98 Intake and Output 08/15/17 08/15/17 08/16/17 15:00 23:00 07:00 Intake Total 300 ml 1150 ml 1250 ml Output Total 1600 ml 720 ml Balance 300 ml -450 ml 530 ml Exam Constitutional: alert, obese, oriented, well developed Respiratory: diminished breath sounds (At bases bilaterally), normal air movement (On 2 to 3 L nasal cannula) Cardiovascular: nl pulses, regular rate and rhythm Gastrointestinal: other (Colostomy bag in place, left VITA drain with milky drainage, right VITA drain with minimal serosanguineous drainage), soft Musculoskeletal: swelling (Anasarca improved) Extremities: normal pulses Neurological: [employer] II-XII intact, lethargic, nl mental status, nl speech, other (Weakness improving as patient participating with PT more) Results Result Diagram: 08/16/17 0748 08/16/17 0748 Results 24 hrs Laboratory Tests Test 08/15/17 19:22 08/16/17 07:48 Hemoglobin 8.6 L 8.1 L Hematocrit 27.5 L 26.1 L White Blood Count 9.0 # Red Blood Count 3.09 L Mean Corpuscular Volume 84.5 Mean Corpuscular Hemoglobin 26.2 L Mean Corpuscular Hemoglobin Concent 31.0 L Red Cell Distribution Width 22.9 H Platelet Count 469 H Mean Platelet Volume 10.2 Neutrophils % Segmented Neutrophils % (Manual) 53 Band Neutrophils % (Manual) 29 H Lymphocytes % Lymphocytes % (Manual) 6 L Monocytes % Monocytes % (Manual) 11 Eosinophils % Eosinophils % (Manual) 1 Basophils % Nucleated Red Blood Cells % 0.0 Neutrophils # Neutrophils # (Manual) 5.0 Band Neutrophils # 2.6 H Absolute Lymphocytes (Manual) 0.5 L Lymphocytes # Monocytes # Absolute Monocytes (Manual) 0.9 Eosinophils # Basophils # Nucleated Red Blood Cells # Platelet Estimate INCREASED Polychromasia 3+ Hypochromasia 1+ Anisocytosis 2+ Microcytosis 2+ Sodium Level 132 L Potassium Level 3.4 L Chloride Level 85 L Carbon Dioxide Level 38 H Anion Gap 12 Blood Urea Nitrogen 11 Creatinine 0.64 Glucose Level 101 Calcium Level 8.5 Phosphorus Level 3.1 Magnesium Level 1.9 Total Bilirubin 0.8 Direct Bilirubin 0.00 Indirect Bilirubin 0.8 Aspartate Amino Transf (AST/SGOT) 35 Alanine Aminotransferase (ALT/SGPT) 35 Alkaline Phosphatase 80 Total Protein 5.4 L Albumin 2.7 L Globulin 2.70 Albumin/Globulin Ratio 1.00 Medications Medications Current Medications Acetaminophen (Tylenol Tab) 650 mg Q4H PRN PO pain/fever; Start 07/24/17 at 07 :00; Status Future Hold Phenol (Chloraseptic Throat [place]) 2 spray Q2H PRN MT SORE THROAT Last administered on 07/29/17 18:10; Admin Dose 2 SPRAY; Start 07/29/17 at 13:00 Diphenhydramine HCl (Benadryl) 25 mg Q6H PRN IV SLEEP Last administered on 08/01 00:19; Admin Dose 25 MG; Start 07/31/17 at 13:00 Chlorpromazine (Thorazine) 10 mg Q6 PRN IM HICCUPS Last administered on 21:21; Admin Dose 10 MG; Start 08/02/17 at 06:00 Loratadine (Claritin) 10 mg DAILY NGT Last administered on 08/16/17 08:22; Admin Dose 10 MG; Start 08/04/17 at 09:00 Hydromorphone HCl 0.5 mg 0.5 mg Q2H PRN IV PAIN Last administered on 09:43; Admin Dose 0.5 MG; Start 08/05/17 at 22:30 Meropenem/Sodium Chloride (Merrem 1 Gm/50 ml (Pmx)) 50 ml @ 100 mls/hr Q12 IVPB Last administered on 08/16/17 08:21; Admin Dose 100 MLS/HR; Start at 21:00 Hydralazine HCl (Apresoline) 10 mg Q6H PRN IV sbp>170 Last administered on 14:18; Admin Dose 10 MG; Start 08/07/17 at 18:00 Lisinopril (Zestril) 20 mg DAILY PO Last administered on 08/16/17 08:22; Admin Dose 20 MG; Start 08/10/17 at 10:30 Acetaminophen (Tylenol Tab) 650 mg Q4H PRN PO PAIN AND OR ELEVATED TEMP Last administered on 08/14/17 22:17; Admin Dose 650 MG; Start 08/10/17 at 10:30 Ondansetron HCl 4 mg 4 mg Q6H PRN IV NAUSEA AND/OR VOMITING Last administered on 08/15/17 18:12; Admin Dose 4 MG; Start 08/12/17 at 13:00 Vancomycin HCl/ Sodium Chloride (Vancocin/NS) 250 ml @ 83.333 mls/ hr Q12H IVPB Last administered on 08/15/17 23:00; Admin Dose 83.333 MLS/HR; Start at 00:00 Amiodarone HCl (Cordarone) 200 mg BID PO Last administered on 08/16/17 08:22 ; Admin Dose 200 MG; Start 08/14/17 at 12:00 Bumetanide (Bumex) 1 mg DAILY IV Last administered on 08/16/17 08:21; Admin Dose 1 MG; Start 08/16/17 at 09:00 Pantoprazole (Protonix Tab) 40 mg DAILY@06 PO Last administered on 08/16/17 05:14; Admin Dose 40 MG; Start 08/16/17 at 06:00 RAE CALVO Aug 16, 2017 11:02
[2017-08-16] MEDS: VANCOMYCIN 1.25 GM in SOD CHLORIDE 0.9% 250 ML IVPB SCH (11:51)
[2017-08-16] MEDS: ONDANSETRON 4 MG INJ IV PRN ×2 (11:52→21:26)
[2017-08-16] MEDS ORDERED: MAGNESIUM SULFATE 1 GM/D5W 100 ML IVPB ONE (12:00)
--- NOTE | 2017-08-16 12:58 | PN ---
Date/Time of Note Date/Time of Note DATE: 08/16/17 TIME: 12:57 Assessment/Plan VTE Prophylaxis VTE Prophylaxis Intervention: SCD's Lines/Catheters IV Catheter Type (from Nrs): Central Line Central line still needed: No Urinary Cath still in place: No Reason Cath still needed: urinary retention Assessment/Plan Assessment/Plan Assessment/Plan Paroxysmal atrial fibrillation with rapid ventricular rates, currently sinus Acute decompensated systolic and diastolic congestive heart failure Low normal ejection fraction 50% Colon mass status post colon surgery July 26, 2017 and repeat August 05, 2017 Acute kidney injury, improved Sepsis Vent dependent respiratory failure, status post extubation -s/p episodes of paroxysmal atrial fibrillation > now in nsr ideally maintain potassium above 4.0 and magnesium above 2.0. Diuretics as per our nephrology colleagues. Will continue amiodarone to help maintain in sinus rhythm -keep off anticoagulation at this time Subjective 24 Hr Interval Summary Free Text/Dictation The aptient with no change Exam/Review of Systems Vital Signs Vitals Vital Signs Date Time Temp Pulse Resp B/P Pulse Ox O2 Delivery O2 Flow Rate FiO2 08/16/17 12:14 99.0 82 18 122/60 97 08/16/17 08:00 Nasal Cannula 2.0 Intake and Output 08/15/17 08/15/17 08/16/17 15:00 23:00 07:00 Intake Total 300 ml 1150 ml 1250 ml Output Total 1600 ml 720 ml Balance 300 ml -450 ml 530 ml Results Result Diagram: 08/16/17 0748 08/16/17 0748 Results 24 hrs Laboratory Tests Test 08/15/17 19:22 08/16/17 07:48 Hemoglobin 8.6 L 8.1 L Hematocrit 27.5 L 26.1 L White Blood Count 9.0 # Red Blood Count 3.09 L Mean Corpuscular Volume 84.5 Mean Corpuscular Hemoglobin 26.2 L Mean Corpuscular Hemoglobin Concent 31.0 L Red Cell Distribution Width 22.9 H Platelet Count 469 H Mean Platelet Volume 10.2 Neutrophils % Segmented Neutrophils % (Manual) 53 Band Neutrophils % (Manual) 29 H Lymphocytes % Lymphocytes % (Manual) 6 L Monocytes % Monocytes % (Manual) 11 Eosinophils % Eosinophils % (Manual) 1 Basophils % Nucleated Red Blood Cells % 0.0 Neutrophils # Neutrophils # (Manual) 5.0 Band Neutrophils # 2.6 H Absolute Lymphocytes (Manual) 0.5 L Lymphocytes # Monocytes # Absolute Monocytes (Manual) 0.9 Eosinophils # Basophils # Nucleated Red Blood Cells # Platelet Estimate INCREASED Polychromasia 3+ Hypochromasia 1+ Anisocytosis 2+ Microcytosis 2+ Sodium Level 132 L Potassium Level 3.4 L Chloride Level 85 L Carbon Dioxide Level 38 H Anion Gap 12 Blood Urea Nitrogen 11 Creatinine 0.64 Glucose Level 101 Calcium Level 8.5 Phosphorus Level 3.1 Magnesium Level 1.9 Total Bilirubin 0.8 Direct Bilirubin 0.00 Indirect Bilirubin 0.8 Aspartate Amino Transf (AST/SGOT) 35 Alanine Aminotransferase (ALT/SGPT) 35 Alkaline Phosphatase 80 Total Protein 5.4 L Albumin 2.7 L Globulin 2.70 Albumin/Globulin Ratio 1.00 Medications Medications Current Medications Acetaminophen (Tylenol Tab) 650 mg Q4H PRN PO pain/fever; Start 07/24/17 at 07 :00; Status Future Hold Phenol (Chloraseptic Throat [place]) 2 spray Q2H PRN MT SORE THROAT Last administered on 07/29/17 18:10; Admin Dose 2 SPRAY; Start 07/29/17 at 13:00 Diphenhydramine HCl (Benadryl) 25 mg Q6H PRN IV SLEEP Last administered on 08/01 00:19; Admin Dose 25 MG; Start 07/31/17 at 13:00 Chlorpromazine (Thorazine) 10 mg Q6 PRN IM HICCUPS Last administered on 21:21; Admin Dose 10 MG; Start 08/02/17 at 06:00 Loratadine (Claritin) 10 mg DAILY NGT Last administered on 08/16/17 08:22; Admin Dose 10 MG; Start 08/04/17 at 09:00 Hydromorphone HCl 0.5 mg 0.5 mg Q2H PRN IV PAIN Last administered on 11:46; Admin Dose 0.5 MG; Start 08/05/17 at 22:30 Meropenem/Sodium Chloride (Merrem 1 Gm/50 ml (Pmx)) 50 ml @ 100 mls/hr Q12 IVPB Last administered on 08/16/17 08:21; Admin Dose 100 MLS/HR; Start at 21:00 Hydralazine HCl (Apresoline) 10 mg Q6H PRN IV sbp>170 Last administered on 14:18; Admin Dose 10 MG; Start 08/07/17 at 18:00 Lisinopril (Zestril) 20 mg DAILY PO Last administered on 08/16/17 08:22; Admin Dose 20 MG; Start 08/10/17 at 10:30 Acetaminophen (Tylenol Tab) 650 mg Q4H PRN PO PAIN AND OR ELEVATED TEMP Last administered on 08/14/17 22:17; Admin Dose 650 MG; Start 08/10/17 at 10:30 Ondansetron HCl 4 mg 4 mg Q6H PRN IV NAUSEA AND/OR VOMITING Last administered on 08/16/17 11:52; Admin Dose 4 MG; Start 08/12/17 at 13:00 Vancomycin HCl/ Sodium Chloride (Vancocin/NS) 250 ml @ 83.333 mls/ hr Q12H IVPB Last administered on 08/16/17 11:51; Admin Dose 83.333 MLS/HR; Start at 00:00 Amiodarone HCl (Cordarone) 200 mg BID PO Last administered on 08/16/17 08:22 ; Admin Dose 200 MG; Start 08/14/17 at 12:00 Bumetanide (Bumex) 1 mg DAILY IV Last administered on 08/16/17 08:21; Admin Dose 1 MG; Start 08/16/17 at 09:00 Pantoprazole 40 mg 40 mg DAILY@06 PO Last administered on 08/16/17 05:14; Admin Dose 40 MG; Start 08/16/17 at 06:00 Magnesium Sulfate/ Dextrose (Magnesium Sulfate 1 Gm/D5W) 100 ml @ 100 mls/hr ONCE ONCE IVPB Last administered on 08/16/17 11:45; Admin Dose 100 MLS/HR; Start 08/16/17 at 12:00; Stop 08/16/17 at 12:59 Miscellaneous Information (*Rx Drug Level Order Reminder*) 1 ONCE ONCE XX ; Start 08/16/17 at 23:00; Stop 08/16/17 at 23:01 MURPHY MARIANO MD Aug 16, 2017 12:58
--- NOTE | 2017-08-16 13:04 | PN ---
Date/Time of Note Date/Time of Note DATE: 08/16/17 TIME: 13:02 Assessment/Plan VTE Prophylaxis VTE Prophylaxis Intervention: SCD's Lines/Catheters IV [facility] Type (from [email or web address] Central Line Central line still needed: Yes Urinary Cath still in place: No Reason Cath still needed: urinary retention Assessment/Plan Chief Complaint/Hosp Course 51 yo F with bleeding colon cancer taken to the OR for urgent resection with primary anastomosis postop course was ok and was tolerating clears until she develop afib with RVR and diaphoresis was transferred to the ICU, she developed ileus and emesis, CT scan showed anastomotic leak patient taken to the OR for washout and colostomy placement. was on pressors for one night now off. Problems: Assessment/Plan patient unable to ambulate to the bathroom and requests valladares stay in dispo planning most likely snf Subjective 24 Hr Interval Summary Free Text/Dictation patient doing well tolerating diet, and having colostomy functioning Exam/Review of Systems Vital Signs Vitals Vital Signs Date Time Temp Pulse Resp B/P Pulse Ox O2 Delivery O2 Flow Rate FiO2 08/16/17 12:14 99.0 82 18 122/60 97 08/16/17 08:00 Nasal Cannula 2.0 Intake and Output 08/15/17 08/15/17 08/16/17 14:59 22:59 06:59 Intake Total 300 ml 1100 ml 1300 ml Output Total 1600 ml 720 ml Balance 300 ml -500 ml 580 ml Exam colostomy viable and functioning drains with output Results Result Diagram: 08/16/17 0748 08/16/17 0748 Results 24 hrs Laboratory Tests Test 08/15/17 19:22 08/16/17 07:48 Hemoglobin 8.6 L 8.1 L Hematocrit 27.5 L 26.1 L White Blood Count 9.0 # Red Blood Count 3.09 L Mean Corpuscular Volume 84.5 Mean Corpuscular Hemoglobin 26.2 L Mean Corpuscular Hemoglobin Concent 31.0 L Red Cell Distribution Width 22.9 H Platelet Count 469 H Mean Platelet Volume 10.2 Neutrophils % Segmented Neutrophils % (Manual) 53 Band Neutrophils % (Manual) 29 H Lymphocytes % Lymphocytes % (Manual) 6 L Monocytes % Monocytes % (Manual) 11 Eosinophils % Eosinophils % (Manual) 1 Basophils % Nucleated Red Blood Cells % 0.0 Neutrophils # Neutrophils # (Manual) 5.0 Band Neutrophils # 2.6 H Absolute Lymphocytes (Manual) 0.5 L Lymphocytes # Monocytes # Absolute Monocytes (Manual) 0.9 Eosinophils # Basophils # Nucleated Red Blood Cells # Platelet Estimate INCREASED Polychromasia 3+ Hypochromasia 1+ Anisocytosis 2+ Microcytosis 2+ Sodium Level 132 L Potassium Level 3.4 L Chloride Level 85 L Carbon Dioxide Level 38 H Anion Gap 12 Blood Urea Nitrogen 11 Creatinine 0.64 Glucose Level 101 Calcium Level 8.5 Phosphorus Level 3.1 Magnesium Level 1.9 Total Bilirubin 0.8 Direct Bilirubin 0.00 Indirect Bilirubin 0.8 Aspartate Amino Transf (AST/SGOT) 35 Alanine Aminotransferase (ALT/SGPT) 35 Alkaline Phosphatase 80 Total Protein 5.4 L Albumin 2.7 L Globulin 2.70 Albumin/Globulin Ratio 1.00 Medications Medications Current Medications Acetaminophen (Tylenol Tab) 650 mg Q4H PRN PO pain/fever; Start 07/24/17 at 07 :00; Status Future Hold Phenol (Chloraseptic Throat [place]) 2 spray Q2H PRN MT SORE THROAT Last administered on 07/29/17 18:10; Admin Dose 2 SPRAY; Start 07/29/17 at 13:00 Diphenhydramine HCl (Benadryl) 25 mg Q6H PRN IV SLEEP Last administered on 08/01 00:19; Admin Dose 25 MG; Start 07/31/17 at 13:00 Chlorpromazine (Thorazine) 10 mg Q6 PRN IM HICCUPS Last administered on 21:21; Admin Dose 10 MG; Start 08/02/17 at 06:00 Loratadine (Claritin) 10 mg DAILY NGT Last administered on 08/16/17 08:22; Admin Dose 10 MG; Start 08/04/17 at 09:00 Hydromorphone HCl 0.5 mg 0.5 mg Q2H PRN IV PAIN Last administered on 11:46; Admin Dose 0.5 MG; Start 08/05/17 at 22:30 Meropenem/Sodium Chloride (Merrem 1 Gm/50 ml (Pmx)) 50 ml @ 100 mls/hr Q12 IVPB Last administered on 08/16/17 08:21; Admin Dose 100 MLS/HR; Start at 21:00 Hydralazine HCl (Apresoline) 10 mg Q6H PRN IV sbp>170 Last administered on 14:18; Admin Dose 10 MG; Start 08/07/17 at 18:00 Lisinopril (Zestril) 20 mg DAILY PO Last administered on 08/16/17 08:22; Admin Dose 20 MG; Start 08/10/17 at 10:30 Acetaminophen (Tylenol Tab) 650 mg Q4H PRN PO PAIN AND OR ELEVATED TEMP Last administered on 08/14/17 22:17; Admin Dose 650 MG; Start 08/10/17 at 10:30 Ondansetron HCl 4 mg 4 mg Q6H PRN IV NAUSEA AND/OR VOMITING Last administered on 08/16/17 11:52; Admin Dose 4 MG; Start 08/12/17 at 13:00 Vancomycin HCl/ Sodium Chloride (Vancocin/NS) 250 ml @ 83.333 mls/ hr Q12H IVPB Last administered on 08/16/17 11:51; Admin Dose 83.333 MLS/HR; Start at 00:00 Amiodarone HCl (Cordarone) 200 mg BID PO Last administered on 08/16/17 08:22 ; Admin Dose 200 MG; Start 08/14/17 at 12:00 Bumetanide (Bumex) 1 mg DAILY IV Last administered on 08/16/17 08:21; Admin Dose 1 MG; Start 08/16/17 at 09:00 Pantoprazole (Protonix Tab) 40 mg DAILY@06 PO Last administered on 08/16/17 05:14; Admin Dose 40 MG; Start 08/16/17 at 06:00 Miscellaneous Information (*Rx Drug Level Order Reminder*) 1 ONCE ONCE XX ; Start 08/16/17 at 23:00; Stop 08/16/17 at 23:01 Hilario BOTELLO Aug 16, 2017 13:04
--- NOTE | 2017-08-16 15:08 | CONS ---
Date/Time of Note Date/Time of Note DATE: 08/16/17 TIME: 15:07 Consult Date/Type/Reason Admit Date/Time Jul 24, 2017 at 06:16 Initial Consult Date 08/05/17 Type of Consultation: ID Ordering Provider: RAE CALVO Objective Vital Signs Date Time Temp Pulse Resp B/P Pulse Ox O2 Delivery O2 Flow Rate FiO2 08/16/17 12:14 99.0 82 18 122/60 97 08/16/17 08:00 Nasal Cannula 2.0 Intake and Output 08/15/17 08/15/17 08/16/17 14:59 22:59 06:59 Intake Total 300 ml 1100 ml 1300 ml Output Total 1600 ml 720 ml Balance 300 ml -500 ml 580 ml Results/Medications Result Diagram: 08/16/1748 08/16/17 0748 Results 24 hrs Laboratory Tests Test 08/15/17 19:22 08/16/17 07:48 Hemoglobin 8.6 L 8.1 L Hematocrit 27.5 L 26.1 L White Blood Count 9.0 # Red Blood Count 3.09 L Mean Corpuscular Volume 84.5 Mean Corpuscular Hemoglobin 26.2 L Mean Corpuscular Hemoglobin Concent 31.0 L Red Cell Distribution Width 22.9 H Platelet Count 469 H Mean Platelet Volume 10.2 Neutrophils % Segmented Neutrophils % (Manual) 53 Band Neutrophils % (Manual) 29 H Lymphocytes % Lymphocytes % (Manual) 6 L Monocytes % Monocytes % (Manual) 11 Eosinophils % Eosinophils % (Manual) 1 Basophils % Nucleated Red Blood Cells % 0.0 Neutrophils # Neutrophils # (Manual) 5.0 Band Neutrophils # 2.6 H Absolute Lymphocytes (Manual) 0.5 L Lymphocytes # Monocytes # Absolute Monocytes (Manual) 0.9 Eosinophils # Basophils # Nucleated Red Blood Cells # Platelet Estimate INCREASED Polychromasia 3+ Hypochromasia 1+ Anisocytosis 2+ Microcytosis 2+ Sodium Level 132 L Potassium Level 3.4 L Chloride Level 85 L Carbon Dioxide Level 38 H Anion Gap 12 Blood Urea Nitrogen 11 Creatinine 0.64 Glucose Level 101 Calcium Level 8.5 Phosphorus Level 3.1 Magnesium Level 1.9 Total Bilirubin 0.8 Direct Bilirubin 0.00 Indirect Bilirubin 0.8 Aspartate Amino Transf (AST/SGOT) 35 Alanine Aminotransferase (ALT/SGPT) 35 Alkaline Phosphatase 80 Total Protein 5.4 L Albumin 2.7 L Globulin 2.70 Albumin/Globulin Ratio 1.00 Medications Current Medications Acetaminophen (Tylenol Tab) 650 mg Q4H PRN PO pain/fever; Start 07/24/17 at 07 :00; Status Future Hold Phenol (Chloraseptic Throat [place]) 2 spray Q2H PRN MT SORE THROAT Last administered on 07/29/17 18:10; Admin Dose 2 SPRAY; Start 07/29/17 at 13:00 Diphenhydramine HCl (Benadryl) 25 mg Q6H PRN IV SLEEP Last administered on 08/01 00:19; Admin Dose 25 MG; Start 07/31/17 at 13:00 Chlorpromazine (Thorazine) 10 mg Q6 PRN IM HICCUPS Last administered on 21:21; Admin Dose 10 MG; Start 08/02/17 at 06:00 Loratadine (Claritin) 10 mg DAILY NGT Last administered on 08/16/17 08:22; Admin Dose 10 MG; Start 08/04/17 at 09:00 Hydromorphone HCl 0.5 mg 0.5 mg Q2H PRN IV PAIN Last administered on 13:45; Admin Dose 0.5 MG; Start 08/05/17 at 22:30 Meropenem/Sodium Chloride (Merrem 1 Gm/50 ml (Pmx)) 50 ml @ 100 mls/hr Q12 IVPB Last administered on 08/16/17 08:21; Admin Dose 100 MLS/HR; Start at 21:00 Hydralazine HCl (Apresoline) 10 mg Q6H PRN IV sbp>170 Last administered on 14:18; Admin Dose 10 MG; Start 08/07/17 at 18:00 Lisinopril (Zestril) 20 mg DAILY PO Last administered on 08/16/17 08:22; Admin Dose 20 MG; Start 08/10/17 at 10:30 Acetaminophen (Tylenol Tab) 650 mg Q4H PRN PO PAIN AND OR ELEVATED TEMP Last administered on 08/14/17 22:17; Admin Dose 650 MG; Start 08/10/17 at 10:30 Ondansetron HCl 4 mg 4 mg Q6H PRN IV NAUSEA AND/OR VOMITING Last administered on 08/16/17 11:52; Admin Dose 4 MG; Start 08/12/17 at 13:00 Vancomycin HCl/ Sodium Chloride (Vancocin/NS) 250 ml @ 83.333 mls/ hr Q12H IVPB Last administered on 08/16/17 11:51; Admin Dose 83.333 MLS/HR; Start at 00:00 Amiodarone HCl (Cordarone) 200 mg BID PO Last administered on 08/16/17 08:22 ; Admin Dose 200 MG; Start 08/14/17 at 12:00 Bumetanide (Bumex) 1 mg DAILY IV Last administered on 08/16/17 08:21; Admin Dose 1 MG; Start 08/16/17 at 09:00 Pantoprazole (Protonix Tab) 40 mg DAILY@06 PO Last administered on 08/16/17 05:14; Admin Dose 40 MG; Start 08/16/17 at 06:00 Miscellaneous Information (*Rx Drug Level Order Reminder*) 1 ONCE ONCE XX ; Start 08/16/17 at 23:00; Stop 08/16/17 at 23:01 Assessment/Plan Chief Complaint/Hosp Course SUBJECTIVE: No acute changes overnight. Alert, feels ok, concerned about not being able to ambulate, looks comfortable, afebrile MICROBIOLOGY: Abdominal wound culture on admission on 08/05 grew E. coli, enterococcus species and oxacillin-sensitive Staphylococcus aureus. Aerobic cultures grew Bacteroides fragilis; fluid cultures have been negative. INDWELLINGS: The patient has Leal, right IJ triple-lumen catheter. ANTIMICROBIALS: 1. Vancomycin. 2. Merrem. ALLERGIES: 1. PENICILLIN. 2. SULFA. 3. AMOXICILLIN. PHYSICAL EXAMINATION: GENERAL: This is an obese, well-developed, middle-aged white woman who is alert , in no distress. HEENT: Head atraumatic, normocephalic. Sclerae anicteric. Buccal mucosa dry. NECK: Supple. CHEST: Rise symmetrical. Breath sounds diminished to bases. HEART: S1, S2. ABDOMEN: Soft, bowel tones present. EXTREMITIES: With bilateral edema lower extremities. ASSESSMENT: 1. SIRS with resolving leukocytosis 2. Status post septic shock. 2. Status post respiratory failure. 3. Colon cancer, status post resection with primary anastomosis complicated by anastomotic leak, status post exploratory laparotomy and drainage of abscesses, partial colectomy with colostomy on 08/05/2017. 4. Left pleural effusion, status post thoracentesis. 5. Anemia. 6. Obesity. PLAN: The patient remains stable, completing abx, pending dana cx DW staff Problems: YG TARANGO NP Aug 16, 2017 15:08
--- NOTE | 2017-08-16 16:17 | CONS ---
Date/Time of Note Date/Time of Note DATE: 08/16/17 TIME: 16:16 Assessment/Plan Assessment/Plan Additional Assessment/Plan 1. Oliguric EJ due to ATN from Shock- Multifactorial septic from peritonitis + Hemorrhagic- Improving, making good urine 2. Acute hyperkalemia due to EJ- Resolved 3. Metabolic acidosis with lactic acidosis- Improved much better, 4. acute resp failure, possible Asp PNA vs HCAP - pt remained on ventilator post operatively ,s/p US throacentesis 400 cc removed from left chest on - s/p extubation on 08/09/17 5. Septic shock requiring pressors, now off levophed 6. Status post Left hemicolectomy for sigmoid adenocarcinoma/mass POD#7, s/p total of 4 units pRBC since admission. - again pt underwent Exploratory laparotomy with intra- abdominal abscess drainage, Placement of percutaneous Maurisio drains #19 x2. , Partial colectomy.Formation of end colostomy with Corona's pouch. on 08/05/17 7. Atrial fibrillation 8. Chronic diastolic heart failure with EF 55% 9. Hypocalcemia with hypoalbuminemia 10. Hypernatremia - resolved with D5W Plan: - s/p Bumex gtt with IV albumin 08/13/17- now on Bumex 1mg IV daily - K replacement Monitor electrolytes and Replace as needed will continue to follow up along with other subspecialist Consultation Date/Type/Reason Admit Date/Time Jul 24, 2017 at 06:16 Initial Consult Date 08/05/17 Type of Consultation: NEPHROLOGY Referring Provider: RAE CALVO Exam/Review of Systems Vital Signs Vitals Vital Signs Date Time Temp Pulse Resp B/P Pulse Ox O2 Delivery O2 Flow Rate FiO2 08/16/17 16:00 97 08/16/17 12:14 99.0 18 122/60 97 08/16/17 08:00 Nasal Cannula 2.0 Intake and Output 08/15/17 08/15/17 08/16/17 14:59 22:59 06:59 Intake Total 300 ml 1100 ml 1300 ml Output Total 1600 ml 720 ml Balance 300 ml -500 ml 580 ml Exam GENERAL: alert, awake, No acute distress HEENT: CHANDRAKANT, EOMI CHEST: Rise symmetrical. Breath sounds diminished to bases. HEART: S1, S2. ABDOMEN: Soft, bowel tones present. back swelling + EXTREMITIES: With bilateral edema lower extremities.2+ + valladares catheter Results Result Diagram: 08/16/17 0748 08/16/17 0748 Results 24 hrs Laboratory Tests Test 08/15/17 19:22 08/16/17 07:48 Hemoglobin 8.6 L 8.1 L Hematocrit 27.5 L 26.1 L White Blood Count 9.0 # Red Blood Count 3.09 L Mean Corpuscular Volume 84.5 Mean Corpuscular Hemoglobin 26.2 L Mean Corpuscular Hemoglobin Concent 31.0 L Red Cell Distribution Width 22.9 H Platelet Count 469 H Mean Platelet Volume 10.2 Neutrophils % Segmented Neutrophils % (Manual) 53 Band Neutrophils % (Manual) 29 H Lymphocytes % Lymphocytes % (Manual) 6 L Monocytes % Monocytes % (Manual) 11 Eosinophils % Eosinophils % (Manual) 1 Basophils % Nucleated Red Blood Cells % 0.0 Neutrophils # Neutrophils # (Manual) 5.0 Band Neutrophils # 2.6 H Absolute Lymphocytes (Manual) 0.5 L Lymphocytes # Monocytes # Absolute Monocytes (Manual) 0.9 Eosinophils # Basophils # Nucleated Red Blood Cells # Platelet Estimate INCREASED Polychromasia 3+ Hypochromasia 1+ Anisocytosis 2+ Microcytosis 2+ Sodium Level 132 L Potassium Level 3.4 L Chloride Level 85 L Carbon Dioxide Level 38 H Anion Gap 12 Blood Urea Nitrogen 11 Creatinine 0.64 Glucose Level 101 Calcium Level 8.5 Phosphorus Level 3.1 Magnesium Level 1.9 Total Bilirubin 0.8 Direct Bilirubin 0.00 Indirect Bilirubin 0.8 Aspartate Amino Transf (AST/SGOT) 35 Alanine Aminotransferase (ALT/SGPT) 35 Alkaline Phosphatase 80 Total Protein 5.4 L Albumin 2.7 L Globulin 2.70 Albumin/Globulin Ratio 1.00 Medications Medications Current Medications Acetaminophen (Tylenol Tab) 650 mg Q4H PRN PO pain/fever; Start 07/24/17 at 07 :00; Status Future Hold Phenol (Chloraseptic Throat [place]) 2 spray Q2H PRN MT SORE THROAT Last administered on 07/29/17 18:10; Admin Dose 2 SPRAY; Start 07/29/17 at 13:00 Diphenhydramine HCl (Benadryl) 25 mg Q6H PRN IV SLEEP Last administered on 08/01 00:19; Admin Dose 25 MG; Start 07/31/17 at 13:00 Chlorpromazine (Thorazine) 10 mg Q6 PRN IM HICCUPS Last administered on 21:21; Admin Dose 10 MG; Start 08/02/17 at 06:00 Loratadine (Claritin) 10 mg DAILY NGT Last administered on 08/16/17 08:22; Admin Dose 10 MG; Start 08/04/17 at 09:00 Hydromorphone HCl 0.5 mg 0.5 mg Q2H PRN IV PAIN Last administered on 15:43; Admin Dose 0.5 MG; Start 08/05/17 at 22:30 Meropenem/Sodium Chloride (Merrem 1 Gm/50 ml (Pmx)) 50 ml @ 100 mls/hr Q12 IVPB Last administered on 08/16/17 08:21; Admin Dose 100 MLS/HR; Start at 21:00 Hydralazine HCl (Apresoline) 10 mg Q6H PRN IV sbp>170 Last administered on 14:18; Admin Dose 10 MG; Start 08/07/17 at 18:00 Lisinopril (Zestril) 20 mg DAILY PO Last administered on 08/16/17 08:22; Admin Dose 20 MG; Start 08/10/17 at 10:30 Acetaminophen (Tylenol Tab) 650 mg Q4H PRN PO PAIN AND OR ELEVATED TEMP Last administered on 08/14/17 22:17; Admin Dose 650 MG; Start 08/10/17 at 10:30 Ondansetron HCl 4 mg 4 mg Q6H PRN IV NAUSEA AND/OR VOMITING Last administered on 08/16/17 11:52; Admin Dose 4 MG; Start 08/12/17 at 13:00 Vancomycin HCl/ Sodium Chloride (Vancocin/NS) 250 ml @ 83.333 mls/ hr Q12H IVPB Last administered on 08/16/17 11:51; Admin Dose 83.333 MLS/HR; Start at 00:00 Amiodarone HCl (Cordarone) 200 mg BID PO Last administered on 08/16/17 08:22 ; Admin Dose 200 MG; Start 08/14/17 at 12:00 Bumetanide (Bumex) 1 mg DAILY IV Last administered on 08/16/17 08:21; Admin Dose 1 MG; Start 08/16/17 at 09:00 Pantoprazole (Protonix Tab) 40 mg DAILY@06 PO Last administered on 08/16/17 05:14; Admin Dose 40 MG; Start 08/16/17 at 06:00 Miscellaneous Information (*Rx Drug Level Order Reminder*) 1 ONCE ONCE XX ; Start 08/16/17 at 23:00; Stop 08/16/17 at 23:01 MEKA ROBERTSON MD Aug 16, 2017 16:17
[2017-08-17] VITALS (11 sets, daily range): BP systolic 119–143; BP diastolic 63–71; PULSE 85–95; RESP 16–20
[2017-08-17] MEDS: HYDROmorphONE 0.5 MG/0.5 ML SYG IV PRN ×9 (00:21→21:23)
[2017-08-17] MEDS: LEVALBUTEROL (NEB) 0.63 MG/3 ML AMP HHN PRN (03:33)
[2017-08-17] MEDS: VANCOMYCIN 1 GM in NS 250 ML IVPB SCH ×2 (04:08→15:00)
[2017-08-17] MEDS: ONDANSETRON 4 MG INJ IV PRN ×3 (04:16→21:28)
[2017-08-17] MEDS: PANTOPRAZOLE (EC) 40 MG TAB PO SCH (06:53)
[2017-08-17] MEDS: LORATADINE 10 MG TAB NGT SCH (08:10)
[2017-08-17] MEDS: MEROPENEM 1 GM/50ML(PMX) 50 ML IVPB SCH ×2 (08:11→21:29)
[2017-08-17] MEDS: AMIODARONE 200 MG TAB PO SCH ×2 (08:11→21:28)
[2017-08-17] MEDS: LISINOPRIL 20 MG TAB PO SCH (08:11)
[2017-08-17] MEDS: BUMETANIDE 1 MG INJ IV SCH (08:11)
[2017-08-17 08:37] LABS: ABNORMAL IP MESSAGE 1; BASOPHILS % 0.3 % (0.0-2.0); EOSINOPHILS # 0.2 10^3/ul (0.0-0.5); HEMATOCRIT 25.1 % (37.0-47.0); HEMOGLOBIN 7.8 g/dl (12.0-16.0); LYMPHOCYTES # 0.9 10^3/ul (0.8-2.9); LYMPHOCYTES % 11.1 % (15.0-51.0); MEAN CORPUSCULAR HEMOGLOBIN 26.3 pg (29.0-33.0); MEAN CORPUSCULAR HGB CONC 31.1 g/dl (32.0-37.0); MEAN CORPUSCULAR VOLUME 84.5 fl (82.0-101.0); MEAN PLATELET VOLUME 9.7 fl (7.4-10.4); MONOCYTE # 0.8 10^3/ul (0.3-0.9); MONOCYTES % 10.6 % (0.0-11.0); NEUTROPHIL # 5.9 10^3/ul (1.6-7.5); NEUTROPHILS % 75.5 % (39.0-77.0); RED BLOOD COUNT 2.97 10^6/ul (4.20-5.40); RED CELL DISTRIBUTION WIDTH 22.8 % (11.5-14.5); WHITE BLOOD COUNT 7.8 10^3/ul (4.8-10.8)
[2017-08-17 08:43] LABS: POSITIVE DIFF @See below
[2017-08-17 08:45] LABS: PLATELET COUNT 508 10^3/UL (140-415)
[2017-08-17 09:12] LABS: CALCIUM 8.2 mg/dl (8.4-10.2); CREATININE 0.7 mg/dl (0.44-1.00); POTASSIUM 3.4 mmol/L (3.5-5.1)
[2017-08-17 09:15] LABS: MAGNESIUM 1.8 mg/dl (1.7-2.5); PHOSPHORUS 3.5 mg/dl (2.5-4.9)
[2017-08-17] MEDS: KETOROLAC 30 MG INJ IV SCH ×2 (12:53→21:24)
--- NOTE | 2017-08-17 14:13 | PN ---
DATE: 08/17/2017 A 51-year-old female: 1. Status post left colon resection due to bleeding cancer of colon. 2. Status post reexploration because of peritonitis, leaking of the anastomosis and followed by per itoneal washout, more colon resection, placement of end transverse colostomy and Corona's procedur e, placement of percutaneous Maurisio drain in abdominal cavity. SUBJECTIVE: Now patient feels much better. Her appetite is a regular diet and tolerating. Colosto my is functioning. OBJECTIVE: GENERAL: Alert, awake, oriented x3. VITAL SIGNS: Temperature maximum 99, heart rate 93, respirations 20, blood pressure 136/70, saturat ion 98% on room air. ABDOMEN: Two [place] in the abdominal cavity; one is draining 250 cc, the other one is drain ing 10 cc. Urine output has been 4000 cc approximately 4 hours. The patient is on diuretic 1 mg pe r day in the morning to assist mobilizing the fluid. Patient on antibiotics, meropenem. Abdomen is soft, softer than before. There is still evidence of subcutaneous edema. Colostomy is functioning . HEART: Regular. LUNGS: Clear. Decreased breathing sound at bases. LOWER EXTREMITIES: There is a fluid accumulation that has been mobilized, but still there is some f luid in the deep tissues. The patient has been trying to get out of bed, but has not been able. Sh e is sitting on the bedside, the physical therapist is assisting in immobilization. LABORATORY DATA: Today, WBC down to 7800 with 75% segmented, which is normal. Hemoglobin is 7.8, h ematocrit 25.1. Chemistry: Sodium and potassium normal, BUN and creatinine normal. Calcium 8.2. Albumin 2.7, protein total 5.4. Carbon dioxide is 45 (that could be probably on the basis of mobili zation of the fluid and diuresis that the patient is receiving or hypoventilation due to too much na rcotics, which she is getting for pain medication). ASSESSMENT: The patient is 51 years old, status post laparotomy, peritoneal washout, placement of d rains, end transverse colostomy. The patient was septic, but now appears to be out of sepsis. Kidn ey function is good. Drain output is great with the help of diuretics. She is mobilizing within he r space. Tolerating regular diet. Albumin gradually increasing. WBC normal. PLAN: Physical therapy to assist in ambulating the patient. Continue current care. Kidney functio n per drawbridge tender. Infectious process, consult infectious disease. Abdomen is soft. It appears t hat the infection intraabdominally is under control. Continue current care. Dictated By: ILSA KAPLAN MD PS/NTS Conf#: [id number] DID#: [id number] CC: CECILIA LEON MD;*EndCC*
[2017-08-17] MEDS ORDERED: POTASSIUM CHLORIDE 20 MEQ in DEXTROSE 5% 100 ML IVPB STA (15:21)
--- NOTE | 2017-08-17 15:23 | CONS ---
Date/Time of Note Date/Time of Note DATE: 08/17/17 TIME: 15:20 Assessment/Plan Assessment/Plan Additional Assessment/Plan 1. Oliguric EJ due to ATN from Shock- Multifactorial septic from peritonitis + Hemorrhagic- Improving, making good urine 2. Acute hyperkalemia due to EJ- Resolved 3. Metabolic acidosis with lactic acidosis- Improved much better, 4. acute resp failure, possible Asp PNA vs HCAP - pt remained on ventilator post operatively ,s/p US throacentesis 400 cc removed from left chest on - s/p extubation on 08/09/17 5. Septic shock requiring pressors, now off levophed 6. Status post Left hemicolectomy for sigmoid adenocarcinoma/mass POD#7, s/p total of 4 units pRBC since admission. - again pt underwent Exploratory laparotomy with intra- abdominal abscess drainage, Placement of percutaneous Maurisio drains #19 x2. , Partial colectomy.Formation of end colostomy with Corona's pouch. on 08/05/17 7. Atrial fibrillation 8. Chronic diastolic heart failure with EF 55% 9. Hypocalcemia with hypoalbuminemia 10. Hypernatremia - resolved with D5W Plan: - s/p Bumex gtt with IV albumin 08/13/17- K low, HCo3 45- stop bumex IV now, will give Acetazolamide 500mg IV x 1 dose now - KCL 20EQ IV X 1 dose now Monitor electrolytes and Replace as needed will continue to follow up along with other subspecialist Consultation Date/Type/Reason Admit Date/Time Jul 24, 2017 at 06:16 Initial Consult Date 08/05/17 Type of Consultation: NEPHROLOGY Referring Provider: RAE CALVO 24 HR Interval Summary Free Text/Dictation Cr normal, good diuresis with IV bumex, Now K low, HCO3 45 Exam/Review of Systems Vital Signs Vitals Vital Signs Date Time Temp Pulse Resp B/P Pulse Ox O2 Delivery O2 Flow Rate FiO2 08/17/17 13:35 2.0 08/17/17 12:02 91 08/17/17 11:14 99.0 20 136/71 98 08/17/17 03:33 Nasal Cannula Intake and Output 08/16/17 08/16/17 08/17/17 15:00 23:00 07:00 Intake Total 400 ml 800 ml 700 ml Output Total 80 ml 2880 ml 1300 ml Balance 320 ml -2080 ml -600 ml Exam GENERAL: alert, awake, No acute distress HEENT: CHANDRAKANT, EOMI CHEST: Rise symmetrical. Breath sounds diminished to bases. HEART: S1, S2. ABDOMEN: Soft, bowel tones present. back swelling + EXTREMITIES: With bilateral edema lower extremities.2+ + valladares catheter Results Result Diagram: 08/17/17 0759 08/17/17 0758 Results 24 hrs Laboratory Tests Test 08/16/17 22:55 08/17/17 07:58 08/17/17 07:59 Vancomycin Level Trough 20.8 *H Sodium Level 133 L Potassium Level 3.4 L Chloride Level 85 L Carbon Dioxide Level 45 *H Anion Gap 6 L Blood Urea Nitrogen 11 Creatinine 0.70 Glucose Level 102 Calcium Level 8.2 L Phosphorus Level 3.5 Magnesium Level 1.8 White Blood Count 7.8 Red Blood Count 2.97 L Hemoglobin 7.8 L Hematocrit 25.1 L Mean Corpuscular Volume 84.5 Mean Corpuscular Hemoglobin 26.3 L Mean Corpuscular Hemoglobin Concent 31.1 L Red Cell Distribution Width 22.8 H Platelet Count 508 H Mean Platelet Volume 9.7 Neutrophils % 75.5 Lymphocytes % 11.1 L Monocytes % 10.6 Eosinophils % 2.0 Basophils % 0.3 Nucleated Red Blood Cells % 0.0 Neutrophils # 5.9 Lymphocytes # 0.9 Monocytes # 0.8 Eosinophils # 0.2 Basophils # 0.0 Nucleated Red Blood Cells # 0.0 Medications Medications Current Medications Acetaminophen (Tylenol Tab) 650 mg Q4H PRN PO pain/fever; Start 07/24/17 at 07 :00; Status Future Hold Phenol (Chloraseptic Throat [place]) 2 spray Q2H PRN MT SORE THROAT Last administered on 07/29/17 18:10; Admin Dose 2 SPRAY; Start 07/29/17 at 13:00 Diphenhydramine HCl (Benadryl) 25 mg Q6H PRN IV SLEEP Last administered on 08/01 00:19; Admin Dose 25 MG; Start 07/31/17 at 13:00 Chlorpromazine (Thorazine) 10 mg Q6 PRN IM HICCUPS Last administered on 21:21; Admin Dose 10 MG; Start 08/02/17 at 06:00 Loratadine (Claritin) 10 mg DAILY NGT Last administered on 08/17/17 08:10; Admin Dose 10 MG; Start 08/04/17 at 09:00 Hydromorphone HCl 0.5 mg 0.5 mg Q2H PRN IV PAIN Last administered on 15:17; Admin Dose 0.5 MG; Start 08/05/17 at 22:30 Meropenem/Sodium Chloride (Merrem 1 Gm/50 ml (Pmx)) 50 ml @ 100 mls/hr Q12 IVPB Last administered on 08/17/17 08:11; Admin Dose 100 MLS/HR; Start at 21:00 Hydralazine HCl (Apresoline) 10 mg Q6H PRN IV sbp>170 Last administered on 14:18; Admin Dose 10 MG; Start 08/07/17 at 18:00 Lisinopril (Zestril) 20 mg DAILY PO Last administered on 08/17/17 08:11; Admin Dose 20 MG; Start 08/10/17 at 10:30 Acetaminophen (Tylenol Tab) 650 mg Q4H PRN PO PAIN AND OR ELEVATED TEMP Last administered on 08/14/17 22:17; Admin Dose 650 MG; Start 08/10/17 at 10:30 Ondansetron HCl (Zofran Inj) 4 mg Q6H PRN IV NAUSEA AND/OR VOMITING Last administered on 08/17/17 15:17; Admin Dose 4 MG; Start 08/12/17 at 13:00 Amiodarone HCl (Cordarone) 200 mg BID PO Last administered on 08/17/17 08:11 ; Admin Dose 200 MG; Start 08/14/17 at 12:00 Bumetanide (Bumex) 1 mg DAILY IV Last administered on 08/17/17 08:11; Admin Dose 1 MG; Start 08/16/17 at 09:00 Pantoprazole 40 mg 40 mg DAILY@06 PO Last administered on 08/17/17 06:53; Admin Dose 40 MG; Start 08/16/17 at 06:00 Vancomycin HCl (Vancocin) 250 ml @ 125 mls/hr Q12H IVPB Last administered on 08/17/17 04:08; Admin Dose 125 MLS/HR; Start 08/17/17 at 03:00 Ketorolac Tromethamine (Toradol) 30 mg Q6H IV Last administered on 08/17/17t 12:53; Admin Dose 30 MG; Start 08/17/17 at 12:30; Stop 08/20/17 at 12:29 Miscellaneous Information (*Rx Drug Level Order Reminder*) 1 ONCE ONCE XX ; Start 08/18/17 at 14:00; Stop 08/18/17 at 14:01 MEKA ROBERTSON MD Aug 17, 2017 15:23
[2017-08-17] MEDS ORDERED: ACETAZOLAMIDE 500 MG INJ IV ONE (15:30)
[2017-08-17] MEDS: METOCLOPRAMIDE 10 MG INJ IV PRN (17:49)
--- NOTE | 2017-08-17 19:29 | CONS ---
Date/Time of Note Date/Time of Note DATE: 08/17/17 TIME: 19:23 Assessment/Plan Assessment/Plan Chief Complaint/Hosp Course ID PROGRESS NOTE CURRENT ABX: DAY # =>Vanco IV + Merrem 24H INTERVAL SUMMARY * A/A/O -> Resting comfortably , afebrile, VSS, NAD, "Today I feel like I have more energy" * O2 via NC, without dyspnea, family present, have changed dsgs * CHART REVIEWED: See vitals, labs as per below. * MICRO REVIEWED: Abdominal wound culture on admission on 08/05 grew E. coli, enterococcus species and oxacillin-sensitive Staphylococcus aureus. Aerobic cultures grew Bacteroides fragilis; fluid cultures have been negative. * 08/15/17 PERITONEAL Microbiology BODY FLUID CULTURE Preliminary Organism 1 GRAM NEGATIVE [place] QUANTITY SCANT GROWTH * INDWELLINGS: The patient has Leal, right IJ triple-lumen catheter. PHYSICAL EXAMINATION: GENERAL: VSS, afebrile, NAD HEENT: Unremarkable NECK: Supple, trach midline CHEST: Equal chest rise bilaterally, without dyspnea on observation HEART: RRR ABDOMEN: Soft, DSG intact : FC, clear yellow urine EXT: Warm, BLEXT edema SKIN: No rash, no diaphoresis ID ASSESSMENT: 51 yo Obese F admit VPH: 1. SIRS with resolving leukocytosis 2. Status post septic shock. 2. Status post respiratory failure. 3. Colon cancer, status post resection with primary anastomosis complicated by anastomotic leak, status post exploratory laparotomy and drainage of abscesses, partial colectomy with colostomy on 08/05/2017. 4. Left pleural effusion, status post thoracentesis. 5. Anemia. ( -)MRSA ABX ALLERGIES: PCN/Sulfa INVASIVES: R-IJ-TLC, FC CURRENT ABX: =>Vanco IV + Merrem ID RECOMMENDATIONS/PLAN: 1. Continue current ABX over the weekend 2. ID team consultants will continue to follow 3. f/u micro pending * 08/15/17 PERITONEAL Microbiology BODY FLUID CULTURE Preliminary Organism 1 GRAM NEGATIVE VAL[place] QUANTITY SCANT GROWTH . Problems: Consultation Date/Type/Reason Admit Date/Time Jul 24, 2017 at 06:16 Initial Consult Date 08/05/17 Referring Provider: RAE CALVO Exam/Review of Systems Vital Signs Vitals Vital Signs Date Time Temp Pulse Resp B/P Pulse Ox O2 Delivery O2 Flow Rate FiO2 08/17/17 16:06 85 08/17/17 15:44 98.8 20 119/63 98 08/17/17 13:35 2.0 08/17/17 03:33 Nasal Cannula Intake and Output 08/16/17 08/16/17 08/17/17 15:00 23:00 07:00 Intake Total 400 ml 800 ml 700 ml Output Total 80 ml 2880 ml 1300 ml Balance 320 ml -2080 ml -600 ml Results Result Diagram: 08/17/17 0759 08/17/17 0758 Results 24 hrs Laboratory Tests Test 08/16/17 22:55 08/17/17 07:58 08/17/17 07:59 Vancomycin Level Trough 20.8 *H Sodium Level 133 L Potassium Level 3.4 L Chloride Level 85 L Carbon Dioxide Level 45 *H Anion Gap 6 L Blood Urea Nitrogen 11 Creatinine 0.70 Glucose Level 102 Calcium Level 8.2 L Phosphorus Level 3.5 Magnesium Level 1.8 White Blood Count 7.8 Red Blood Count 2.97 L Hemoglobin 7.8 L Hematocrit 25.1 L Mean Corpuscular Volume 84.5 Mean Corpuscular Hemoglobin 26.3 L Mean Corpuscular Hemoglobin Concent 31.1 L Red Cell Distribution Width 22.8 H Platelet Count 508 H Mean Platelet Volume 9.7 Neutrophils % 75.5 Lymphocytes % 11.1 L Monocytes % 10.6 Eosinophils % 2.0 Basophils % 0.3 Nucleated Red Blood Cells % 0.0 Neutrophils # 5.9 Lymphocytes # 0.9 Monocytes # 0.8 Eosinophils # 0.2 Basophils # 0.0 Nucleated Red Blood Cells # 0.0 Medications Medications Current Medications Acetaminophen (Tylenol Tab) 650 mg Q4H PRN PO pain/fever; Start 07/24/17 at 07 :00; Status Future Hold Phenol (Chloraseptic Throat [place]) 2 spray Q2H PRN MT SORE THROAT Last administered on 07/29/17 18:10; Admin Dose 2 SPRAY; Start 07/29/17 at 13:00 Diphenhydramine HCl (Benadryl) 25 mg Q6H PRN IV SLEEP Last administered on 08/01 00:19; Admin Dose 25 MG; Start 07/31/17 at 13:00 Chlorpromazine (Thorazine) 10 mg Q6 PRN IM HICCUPS Last administered on 21:21; Admin Dose 10 MG; Start 08/02/17 at 06:00 Loratadine (Claritin) 10 mg DAILY NGT Last administered on 08/17/17 08:10; Admin Dose 10 MG; Start 08/04/17 at 09:00 Hydromorphone HCl 0.5 mg 0.5 mg Q2H PRN IV PAIN Last administered on 17:57; Admin Dose 0.5 MG; Start 08/05/17 at 22:30 Meropenem/Sodium Chloride (Merrem 1 Gm/50 ml (Pmx)) 50 ml @ 100 mls/hr Q12 IVPB Last administered on 08/17/17 08:11; Admin Dose 100 MLS/HR; Start at 21:00 Hydralazine HCl (Apresoline) 10 mg Q6H PRN IV sbp>170 Last administered on 14:18; Admin Dose 10 MG; Start 08/07/17 at 18:00 Lisinopril (Zestril) 20 mg DAILY PO Last administered on 08/17/17 08:11; Admin Dose 20 MG; Start 08/10/17 at 10:30 Acetaminophen (Tylenol Tab) 650 mg Q4H PRN PO PAIN AND OR ELEVATED TEMP Last administered on 08/14/17 22:17; Admin Dose 650 MG; Start 08/10/17 at 10:30 Ondansetron HCl (Zofran Inj) 4 mg Q6H PRN IV NAUSEA AND/OR VOMITING Last administered on 08/17/17 15:17; Admin Dose 4 MG; Start 08/12/17 at 13:00 Amiodarone HCl (Cordarone) 200 mg BID PO Last administered on 08/17/17 08:11 ; Admin Dose 200 MG; Start 08/14/17 at 12:00 Pantoprazole 40 mg 40 mg DAILY@06 PO Last administered on 08/17/17 06:53; Admin Dose 40 MG; Start 08/16/17 at 06:00 Vancomycin HCl (Vancocin) 250 ml @ 125 mls/hr Q12H IVPB Last administered on 08/17/17 15:00; Admin Dose 125 MLS/HR; Start 08/17/17 at 03:00 Ketorolac Tromethamine (Toradol) 30 mg Q6H IV Last administered on 08/17/17 12:53; Admin Dose 30 MG; Start 08/17/17 at 12:30; Stop 08/20/17 at 12:29 Miscellaneous Information (*Rx Drug Level Order Reminder*) 1 ONCE ONCE XX ; Start 08/18/17 at 14:00; Stop 08/18/17 at 14:01 Metoclopramide HCl (Reglan) 10 mg Q6 PRN IV Nausea Last administered on 17:49; Admin Dose 10 MG; Start 08/17/17 at 18:00 HARPER TORRES NP Aug 17, 2017 19:29
--- NOTE | 2017-08-17 21:57 | PN ---
Date/Time of Note Date/Time of Note DATE: 08/17/17 TIME: 21:56 Assessment/Plan VTE Prophylaxis VTE Prophylaxis Intervention: SCD's Lines/Catheters IV Catheter Type (from Nrsg): Central Line Central line still needed: Yes (critically ill) Urinary Cath still in place: Yes Reason Cath still needed: other (indicate) (immobility) Assessment/Plan Assessment/Plan [facility] 1. 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 POD# 12 s/p colostomy placement, with exploratory laparoscopy for drainage of abscesses and drain placement. Doing much better overall, with no fever or nausea now. Intraoperative peritoneal cultures positive for E. coli, Enterococcus, and Staph aureus. * Per Paris Marvin [employer] (infectious disease), no change in current treatment with meropenem and vancomycin. * Continue regular diet * Encourage engagement with physical therapy and out of bed to chair. * Discussed pain management as a next step toward moving to a formal rehabilitation program. She is reluctant to switch. I spoke with Dr. Mattson, who supports adding Toradol 30mg IV q6h as a narcotic-sparing agent. 2. S/p acute respiratory failure and acute renal failure, extubated earlier this week. S/p diuresis with Bumex drip, now discontinued and voiding adequately. * My thanks to Dr. Kiser for his thorough notes and contributions. Continue off additional albumin for now. 3. Chronic atrial fibrillation, with an episode of atrial fibrillation earlier this week that has not recurred with normalization of her electrolytes and PO amiodarone BID. Stably now in sinus rhythm. * Continue low-dose amiodarone by mouth * Electrolyte repletion as needed * Holding oral anticoagulation for now 4. Chronic congestive heart failure, chronic diastolic dysfunction and ejection fraction of 55% on latest outpatient echocardiogram in January 2017 and confirmed to be 50% on this admission. S/p left thoracentesis last week with removal of 400 cc 5. Anemia, acute on chronic, postop. Hemoglobin with continued slow trending down, today slipped to 7.8 (from 8.1). No acute bleeding noted. * Monitor hemoglobin daily, may need blood transfusion. 6. Hypertension history. Pressures higher today in 130s systolic, off Bumex. * Restart lisinopril * Patient was on spironolactone as an outpatient; will monitor, per Dr. Kiser. 7. Prophylaxis: Off anticoagulation, SCDs, Pepcid for GI prophylaxis. 8. Disposition: Continue volume management, telemetry monitoring for recurrent atrial fibrillation. * Full-code * Continue IV antibiotics. * Blood cultures, UA and urine cultures monitored, on top of VITA drainage. * Continue PT/OT. * Consider rehabilitation options. Bijal Minor MD PhD [phone] Subjective 24 Hr Interval Summary Free Text/Dictation Still with considerable pain in the abdomen, unless she receives IV dilaudid every two hours. She is fearful of switching to oral pain medication, with the potential to make her nauseated. Exam/Review of Systems Vital Signs Vitals Vital Signs Date Time Temp Pulse Resp B/P Pulse Ox O2 Delivery O2 Flow Rate FiO2 08/17/17 20:00 95 08/17/17 19:30 98.0 16 137/71 98 08/17/17 13:35 2.0 08/17/17 08:18 Nasal Cannula Intake and Output 08/16/17 08/16/17 08/17/17 15:00 23:00 07:00 Intake Total 400 ml 800 ml 700 ml Output Total 80 ml 2880 ml 1300 ml Balance 320 ml -2080 ml -600 ml Exam Constitutional: Large, well developed, tired-appearing, conversant Respiratory: diminished breath sounds at the bases bilaterally, but with good air movement and breathing comfortably on room air Cardiovascular: Symmetric pulses, regular rhythm, normal rate. Normal sinus rhythm stably on telemetry. Gastrointestinal: Colostomy in place, left VITA drain with darker drainage, right VITA drain with small serosanguineous drainage, soft without rebound or guarding, but with mild apprehension. Musculoskeletal: No arthritis, trace pedal edema. Neurological: Alert, oriented, intact memory and mentation, REGISTERED MIDWIFE II-XII intact, normal speech, 4/5 distal weakness, indicates she is unable to bear weight. Results Result Diagram: 08/17/17 0759 08/17/17 0758 Results 24 hrs Laboratory Tests Test 08/16/17 22:55 08/17/17 07:58 08/17/17 07:59 Vancomycin Level Trough 20.8 *H Sodium Level 133 L Potassium Level 3.4 L Chloride Level 85 L Carbon Dioxide Level 45 *H Anion Gap 6 L Blood Urea Nitrogen 11 Creatinine 0.70 Glucose Level 102 Calcium Level 8.2 L Phosphorus Level 3.5 Magnesium Level 1.8 White Blood Count 7.8 Red Blood Count 2.97 L Hemoglobin 7.8 L Hematocrit 25.1 L Mean Corpuscular Volume 84.5 Mean Corpuscular Hemoglobin 26.3 L Mean Corpuscular Hemoglobin Concent 31.1 L Red Cell Distribution Width 22.8 H Platelet Count 508 H Mean Platelet Volume 9.7 Neutrophils % 75.5 Lymphocytes % 11.1 L Monocytes % 10.6 Eosinophils % 2.0 Basophils % 0.3 Nucleated Red Blood Cells % 0.0 Neutrophils # 5.9 Lymphocytes # 0.9 Monocytes # 0.8 Eosinophils # 0.2 Basophils # 0.0 Nucleated Red Blood Cells # 0.0 Medications Medications Current Medications Acetaminophen (Tylenol Tab) 650 mg Q4H PRN PO pain/fever; Start 07/24/17 at 07 :00; Status Future Hold Phenol (Chloraseptic Throat [place]) 2 spray Q2H PRN MT SORE THROAT Last administered on 07/29/17 18:10; Admin Dose 2 SPRAY; Start 07/29/17 at 13:00 Diphenhydramine HCl (Benadryl) 25 mg Q6H PRN IV SLEEP Last administered on 08/01 00:19; Admin Dose 25 MG; Start 07/31/17 at 13:00 Chlorpromazine (Thorazine) 10 mg Q6 PRN IM HICCUPS Last administered on 21:21; Admin Dose 10 MG; Start 08/02/17 at 06:00 Loratadine (Claritin) 10 mg DAILY NGT Last administered on 08/17/17 08:10; Admin Dose 10 MG; Start 08/04/17 at 09:00 Hydromorphone HCl 0.5 mg 0.5 mg Q2H PRN IV PAIN Last administered on 21:23; Admin Dose 0.5 MG; Start 08/05/17 at 22:30 Meropenem/Sodium Chloride (Merrem 1 Gm/50 ml (Pmx)) 50 ml @ 100 mls/hr Q12 IVPB Last administered on 08/17/17 21:29; Admin Dose 100 MLS/HR; Start at 21:00 Hydralazine HCl (Apresoline) 10 mg Q6H PRN IV sbp>170 Last administered on 14:18; Admin Dose 10 MG; Start 08/07/17 at 18:00 Lisinopril (Zestril) 20 mg DAILY PO Last administered on 08/17/17 08:11; Admin Dose 20 MG; Start 08/10/17 at 10:30 Acetaminophen (Tylenol Tab) 650 mg Q4H PRN PO PAIN AND OR ELEVATED TEMP Last administered on 08/14/17 22:17; Admin Dose 650 MG; Start 08/10/17 at 10:30 Ondansetron HCl (Zofran Inj) 4 mg Q6H PRN IV NAUSEA AND/OR VOMITING Last administered on 08/17/17 21:28; Admin Dose 4 MG; Start 08/12/17 at 13:00 Amiodarone HCl (Cordarone) 200 mg BID PO Last administered on 08/17/17 21:28 ; Admin Dose 200 MG; Start 08/14/17 at 12:00 Pantoprazole 40 mg 40 mg DAILY@06 PO Last administered on 08/17/17 06:53; Admin Dose 40 MG; Start 08/16/17 at 06:00 Vancomycin HCl (Vancocin) 250 ml @ 125 mls/hr Q12H IVPB Last administered on 08/17/17 15:00; Admin Dose 125 MLS/HR; Start 08/17/17 at 03:00 Ketorolac Tromethamine (Toradol) 30 mg Q6H IV Last administered on 08/17/17 21:24; Admin Dose 30 MG; Start 08/17/17 at 12:30; Stop 08/20/17 at 12:29 Miscellaneous Information (*Rx Drug Level Order Reminder*) 1 ONCE ONCE XX ; Start 08/18/17 at 14:00; Stop 08/18/17 at 14:01 Metoclopramide HCl (Reglan) 10 mg Q6 PRN IV Nausea Last administered on 17:49; Admin Dose 10 MG; Start 08/17/17 at 18:00 JAVIER MINOR M.D. Aug 17, 2017 21:57 JAVIER MINOR M.D. Aug 17, 2017 21:57
[2017-08-18] VITALS (11 sets, daily range): BP systolic 116–136; BP diastolic 65–72; PULSE 81–100; RESP 20
[2017-08-18] MEDS: METOCLOPRAMIDE 10 MG INJ IV PRN ×2 (00:51→22:08)
[2017-08-18] MEDS: LEVALBUTEROL (NEB) 0.63 MG/3 ML AMP HHN PRN ×2 (02:24→11:24)
[2017-08-18] MEDS: VANCOMYCIN 1 GM in NS 250 ML IVPB SCH (03:44)
[2017-08-18] MEDS: PANTOPRAZOLE (EC) 40 MG TAB PO SCH (05:09)
[2017-08-18] MEDS: KETOROLAC 30 MG INJ IV SCH ×4 (05:09→19:07)
[2017-08-18] MEDS: HYDROmorphONE 0.5 MG/0.5 ML SYG IV PRN ×6 (05:50→22:08)
[2017-08-18] MEDS: MEROPENEM 1 GM/50ML(PMX) 50 ML IVPB SCH ×2 (10:09→22:07)
[2017-08-18] MEDS: LORATADINE 10 MG TAB NGT SCH (10:09)
[2017-08-18] MEDS: LISINOPRIL 20 MG TAB PO SCH (10:10)
[2017-08-18] MEDS: AMIODARONE 200 MG TAB PO SCH ×2 (10:11→22:07)
[2017-08-18 10:28] LABS: ABNORMAL IP MESSAGE 1; HEMATOCRIT 24.9 % (37.0-47.0); HEMOGLOBIN 7.9 g/dl (12.0-16.0); MEAN CORPUSCULAR HEMOGLOBIN 26.4 pg (29.0-33.0); MEAN CORPUSCULAR HGB CONC 31.7 g/dl (32.0-37.0); MEAN CORPUSCULAR VOLUME 83.3 fl (82.0-101.0); MEAN PLATELET VOLUME 9.9 fl (7.4-10.4); PLATELET COUNT 461 10^3/UL (140-415); RED BLOOD COUNT 2.99 10^6/ul (4.20-5.40); RED CELL DISTRIBUTION WIDTH 22.9 % (11.5-14.5); WHITE BLOOD COUNT 8.2 10^3/ul (4.8-10.8)
[2017-08-18 10:31] LABS: POSITIVE DIFF @See below
[2017-08-18 10:57] LABS: ALBUMIN 2.6 g/dl (3.3-4.9); BILIRUBIN,INDIRECT 0.5 mg/dl (0-1.1); BILIRUBIN,TOTAL 0.5 mg/dl (0.2-1.3); CREATININE 0.93 mg/dl (0.44-1.00); TOTAL PROTEIN 5.2 g/dl (6.1-8.1)
[2017-08-18] MEDS ORDERED: POTASSIUM CHLORIDE 20 MEQ in DEXTROSE 5% 100 ML IVPB ONE (11:00)
[2017-08-18 11:02] LABS: ANISOCYTOSIS 2+ (0-0); EOSINOPHILS % (M) 2 % (0-7); GIANT THROMBO% (M) 2 % (0-0); HYPOCHROMASIA 1+ (0-0); MICROCYTOSIS 1+ (0-0); MONOCYTES % (M) 3 % (0-11); PLATELET ESTIMATE INCREASED; POLYCHROMASIA 2+ (0-0)
[2017-08-18] MEDS: ONDANSETRON 4 MG INJ IV PRN (12:09)
--- NOTE | 2017-08-18 15:39 | PN ---
DATE: 08/18/2017 SUBJECTIVE: No new complaints. Toradol has been effective in regard to the pain. There is less abdominal pain today. OBJECTIVE GENERAL: Awake, alert, and oriented. VITAL SIGNS: Temperature 98.4, heart rate high 80s or 90s, respirations 20, blood pressure 130/72, saturation 98% on 2 liters nasal cannula. LABORATORY DATA: WBC is 8200 with 62% neutrophils and also 16% band. The last band which was on 08/16/2017, was 29%. Hemoglobin is 7.9, hematocrit 24.9. This has been stable over the past few days. Chemistry: Sodium 134, potassium low 3 is going to be replaced today. Chloride 85 is low. BUN is 15, creatinine 0.93, calcium is 8. Total protein 5.2, albumin 2.6. Intake and output: Urine output in the past 24 hours 4500 mL. Den-Klein, the one on the left side has drained 140 mL which appears to be purulent. The one on the right side drained 30 mL which is serosanguineous, Colostomy is functioning. Chest x-ray: We do not have any chest x-ray today. HEART: Regular. LUNGS: Decreased breathing sound in the bases, harsh breathing sound. ABDOMEN: Soft. As was mentioned, 2 Den-Klein drains, one colostomy bag. EXTREMITIES: Legs of the lower extremity: There is still pitting edema, but no calf tenderness. The left Den-Klein drain is draining purulent material. It was sent for culture 2 days ago and the report so far is: 1. Enterobacter cloacae complex. 2. Staphylococcus aureus. 3. Enterococcus species. Infectious disease is going to take care of sensitivity and adjustment of antibiotics. Right now the patient is on: 1. Vancomycin. 2. Meropenem. ASSESSMENT AND PLAN: This is a 51-year-old female who was admitted with rectal bleeding and was found to have a left colon cancer that was emergently operated with left tumor and colon resection. Postop, the patient developed complication of leakage of the anastomosis and developed peritonitis with abscesses that were taken care of by surgical intervention. The patient had a partial colon resection again and colostomy on the left side and transverse colon, and 2 Den-Kleni drains were left in the peritoneal cavity. The patient was septic and was kept in the ICU for several days and eventually was transferred to telemetry. Right now, the patient does not appear to be septic. The patient is on regular diet. Colostomy is functioning. The patient has a Leal catheter for the urine monitoring. The patient is getting diuretics for mobilization of the anasarca, which has been successful so far. The patient is on antibiotics. PLAN: Get a chest x-ray tomorrow. Continue lab tests for tomorrow. Continue current care. Replace the potassium right now and if at 6:00 p.m. the potassium is still below 3.5, will give 20 mEq more of potassium replacement. Infectious disease will manage the antibiotic choice per sensitivity and culture results. Dictated By: ILSA KAPLAN MD PS/VINNY Conf#: [id number] DID#: [id number] MTDD
--- NOTE | 2017-08-18 16:58 | CONS ---
Date/Time of Note Date/Time of Note DATE: 08/18/17 TIME: 16:51 Assessment/Plan Assessment/Plan Chief Complaint/Hosp Course Assessment/Plan Chief Complaint/Hosp Course ID PROGRESS NOTE CURRENT ABX: DAY # =>Vanco IV + Merrem 24H INTERVAL SUMMARY 1. Awake. Alert. No Acute Distress. * O2 via NC, without dyspnea, family present, have changed dsgs * CHART REVIEWED: See vitals, labs as per below. * MICRO REVIEWED: Abdominal wound culture on admission on 08/05 grew E. coli, enterococcus species and oxacillin-sensitive Staphylococcus aureus. Aerobic cultures grew Bacteroides fragilis; fluid cultures have been negative. * 08/15/17-2129 PERITONEAL Microbiology BODY FLUID CULTURE Preliminary Organism 1 GRAM NEGATIVE VAL[place] QUANTITY SCANT GROWTH * INDWELLINGS: The patient has Leal, right IJ triple-lumen catheter. PHYSICAL EXAMINATION: GENERAL: VSS, afebrile, NAD HEENT: Unremarkable NECK: Supple, trach midline CHEST: Equal chest rise bilaterally, without dyspnea on observation HEART: RRR ABDOMEN: Soft, DSG intact. Left Side VITA Drain with purulent discharge noted. : FC, clear yellow urine EXT: Warm, BLEXT edema SKIN: No rash, no diaphoresis ID ASSESSMENT: 51 yo Obese F admit VPH: 1. SIRS with resolving leukocytosis 2. Status post septic shock. 2. Status post respiratory failure. 3. Colon cancer, status post resection with primary anastomosis complicated by anastomotic leak, status post exploratory laparotomy and drainage of abscesses, partial colectomy with colostomy on 08/05/2017. 4. Left pleural effusion, status post thoracentesis. 5. Anemia. 6. Status Post VITA Drain. 7. Bilateral Lower Extremities Edema. ( -)MRSA ABX ALLERGIES: PCN/Sulfa INVASIVES: R-IJ-TLC, FC CURRENT ABX: =>Vanco IV + Merrem ID RECOMMENDATIONS/PLAN: 1. Continue current ABX. VITA Drain care. 2. GI prophylaxis. DVT prophylaxis. 3. Follow Up on Microbiology results. Problems: Consultation Date/Type/Reason Admit Date/Time Jul 24, 2017 at 06:16 Initial Consult Date 08/05/17 Type of Consultation: id Referring Provider: RAE CALVO Exam/Review of Systems Vital Signs Vitals Vital Signs Date Time Temp Pulse Resp B/P Pulse Ox O2 Delivery O2 Flow Rate FiO2 11/19/17 16:01 93 08/18/17 15:34 98.5 20 133/70 100 08/18/17 11:25 2.0 08/18/17 11:25 Nasal Cannula Intake and Output 08/17/17 08/17/17 08/18/17 15:00 23:00 07:00 Intake Total 2050 ml 1530 ml Output Total 3000 ml 1500 ml Balance -950 ml 30 ml Results Result Diagram: 08/18/17 0951 08/18/17 0951 Results 24 hrs Laboratory Tests Test 08/18/17 09:51 08/18/17 14:01 White Blood Count 8.2 Red Blood Count 2.99 L Hemoglobin 7.9 L Hematocrit 24.9 L Mean Corpuscular Volume 83.3 Mean Corpuscular Hemoglobin 26.4 L Mean Corpuscular Hemoglobin Concent 31.7 L Red Cell Distribution Width 22.9 H Platelet Count 461 H Mean Platelet Volume 9.9 Neutrophils % Segmented Neutrophils % (Manual) 62 Band Neutrophils % (Manual) 16 H Lymphocytes % Lymphocytes % (Manual) 17 Monocytes % Monocytes % (Manual) 3 Eosinophils % Eosinophils % (Manual) 2 Basophils % Nucleated Red Blood Cells % 0.0 Neutrophils # Neutrophils # (Manual) 5.2 Band Neutrophils # 1.3 H Absolute Lymphocytes (Manual) 1.3 Lymphocytes # Monocytes # Absolute Monocytes (Manual) 0.2 L Eosinophils # Basophils # Nucleated Red Blood Cells # Platelet Estimate INCREASED Giant Platelets 2 H Polychromasia 2+ Hypochromasia 1+ Anisocytosis 2+ Microcytosis 1+ Sodium Level 134 L Potassium Level 3.0 L Chloride Level 85 L Carbon Dioxide Level 39 H Anion Gap 13 # Blood Urea Nitrogen 15 Creatinine 0.93 Glucose Level 124 Calcium Level 8.0 L Total Bilirubin 0.5 Direct Bilirubin 0.00 Indirect Bilirubin 0.5 Aspartate Amino Transf (AST/SGOT) 29 Alanine Aminotransferase (ALT/SGPT) 41 Alkaline Phosphatase 98 Total Protein 5.2 L Albumin 2.6 L Globulin 2.60 Albumin/Globulin Ratio 1.00 Vancomycin Level Trough 24.8 *H Medications Medications Current Medications Acetaminophen (Tylenol Tab) 650 mg Q4H PRN PO pain/fever; Start 07/24/17 at 07 :00; Status Future Hold Phenol (Chloraseptic Throat [place]) 2 spray Q2H PRN MT SORE THROAT Last administered on 07/29/17 18:10; Admin Dose 2 SPRAY; Start 07/29/17 at 13:00 Diphenhydramine HCl (Benadryl) 25 mg Q6H PRN IV SLEEP Last administered on 08/01 00:19; Admin Dose 25 MG; Start 07/31/17 at 13:00 Chlorpromazine (Thorazine) 10 mg Q6 PRN IM HICCUPS Last administered on 21:21; Admin Dose 10 MG; Start 08/02/17 at 06:00 Loratadine (Claritin) 10 mg DAILY NGT Last administered on 08/18/17 10:09; Admin Dose 10 MG; Start 08/04/17 at 09:00 Hydromorphone HCl 0.5 mg 0.5 mg Q2H PRN IV PAIN Last administered on 15:45; Admin Dose 0.5 MG; Start 08/05/17 at 22:30 Meropenem/Sodium Chloride (Merrem 1 Gm/50 ml (Pmx)) 50 ml @ 100 mls/hr Q12 IVPB Last administered on 08/18/17 10:09; Admin Dose 100 MLS/HR; Start at 21:00 Hydralazine HCl (Apresoline) 10 mg Q6H PRN IV sbp>170 Last administered on 14:18; Admin Dose 10 MG; Start 08/07/17 at 18:00 Lisinopril (Zestril) 20 mg DAILY PO Last administered on 08/18/17 10:10; Admin Dose 20 MG; Start 08/10/17 at 10:30 Acetaminophen (Tylenol Tab) 650 mg Q4H PRN PO PAIN AND OR ELEVATED TEMP Last administered on 08/14/17 22:17; Admin Dose 650 MG; Start 08/10/17 at 10:30 Ondansetron HCl (Zofran Inj) 4 mg Q6H PRN IV NAUSEA AND/OR VOMITING Last administered on 08/18/17 12:09; Admin Dose 4 MG; Start 08/12/17 at 13:00 Amiodarone HCl (Cordarone) 200 mg BID PO Last administered on 08/18/17 10:11 ; Admin Dose 200 MG; Start 08/14/17 at 12:00 Pantoprazole 40 mg 40 mg DAILY@06 PO Last administered on 08/18/17 05:09; Admin Dose 40 MG; Start 08/16/17 at 06:00 Vancomycin HCl (Vancocin) 250 ml @ 125 mls/hr Q12H IVPB Last administered on 08/18/17 03:44; Admin Dose 125 MLS/HR; Start 08/17/17 at 03:00 Ketorolac Tromethamine (Toradol) 30 mg Q6H IV Last administered on 08/18/17 12:15; Admin Dose 30 MG; Start 08/17/17 at 12:30; Stop 08/20/17 at 12:29 Metoclopramide HCl (Reglan) 10 mg Q6 PRN IV Nausea Last administered on 00:51; Admin Dose 10 MG; Start 08/17/17 at 18:00 NIKKY LYLE NP Aug 18, 2017 16:58
--- NOTE | 2017-08-18 17:41 | CONS ---
Date/Time of Note Date/Time of Note DATE: 08/18/17 TIME: 17:38 Assessment/Plan Assessment/Plan Additional Assessment/Plan 1. Oliguric EJ due to ATN from Shock- Multifactorial septic from peritonitis + Hemorrhagic- Improving, making good urine 2. Acute hyperkalemia due to EJ- Resolved 3. Metabolic acidosis with lactic acidosis- Improved much better, 4. acute resp failure, possible Asp PNA vs HCAP - pt remained on ventilator post operatively ,s/p US throacentesis 400 cc removed from left chest on - s/p extubation on 08/09/17 5. Septic shock requiring pressors, now off levophed 6. Status post Left hemicolectomy for sigmoid adenocarcinoma/mass POD#7, s/p total of 4 units pRBC since admission. - again pt underwent Exploratory laparotomy with intra- abdominal abscess drainage, Placement of percutaneous Maurisio drains #19 x2. , Partial colectomy.Formation of end colostomy with Corona's pouch. on 08/05/17 7. Atrial fibrillation 8. Chronic diastolic heart failure with EF 55% 9. Hypocalcemia with hypoalbuminemia 10. Hypernatremia - resolved with D5W Plan: - s/p Bumex gtt with IV albumin 08/13/17- K low, HCo3 45 yesterday- stopped bumex IV yesterday, s/p Acetazolamide 500mg IV x 1 yesterday, Today HCo3 39, K replaced Monitor electrolytes and Replace as needed will continue to follow up along with other subspecialist Consultation Date/Type/Reason Admit Date/Time Jul 24, 2017 at 06:16 Initial Consult Date 08/05/17 Type of Consultation: NEPHROLOGY Referring Provider: RAE CALVO 24 HR Interval Summary Free Text/Dictation K 3.0, HCo3 39, bumex stopped yesterday, BP stable Exam/Review of Systems Vital Signs Vitals Vital Signs Date Time Temp Pulse Resp B/P Pulse Ox O2 Delivery O2 Flow Rate FiO2 08/18/17 17:02 2.0 08/18/17 16:01 93 08/18/17 15:34 98.5 20 133/70 100 08/18/17 11:25 Nasal Cannula Intake and Output 08/17/17 08/17/17 08/18/17 15:00 23:00 07:00 Intake Total 2050 ml 1530 ml Output Total 3000 ml 1500 ml Balance -950 ml 30 ml Exam GENERAL: alert, awake, No acute distress HEENT: CHANDRAKANT, EOMI CHEST: Rise symmetrical. Breath sounds diminished to bases. HEART: S1, S2. ABDOMEN: Soft, bowel tones present. back swelling + EXTREMITIES: With bilateral edema lower extremities.2+ + valladares catheter Results Result Diagram: 08/18/17 0951 08/18/17 0951 Results 24 hrs Laboratory Tests Test 08/18/17 09:51 08/18/17 14:01 White Blood Count 8.2 Red Blood Count 2.99 L Hemoglobin 7.9 L Hematocrit 24.9 L Mean Corpuscular Volume 83.3 Mean Corpuscular Hemoglobin 26.4 L Mean Corpuscular Hemoglobin Concent 31.7 L Red Cell Distribution Width 22.9 H Platelet Count 461 H Mean Platelet Volume 9.9 Neutrophils % Segmented Neutrophils % (Manual) 62 Band Neutrophils % (Manual) 16 H Lymphocytes % Lymphocytes % (Manual) 17 Monocytes % Monocytes % (Manual) 3 Eosinophils % Eosinophils % (Manual) 2 Basophils % Nucleated Red Blood Cells % 0.0 Neutrophils # Neutrophils # (Manual) 5.2 Band Neutrophils # 1.3 H Absolute Lymphocytes (Manual) 1.3 Lymphocytes # Monocytes # Absolute Monocytes (Manual) 0.2 L Eosinophils # Basophils # Nucleated Red Blood Cells # Platelet Estimate INCREASED Giant Platelets 2 H Polychromasia 2+ Hypochromasia 1+ Anisocytosis 2+ Microcytosis 1+ Sodium Level 134 L Potassium Level 3.0 L Chloride Level 85 L Carbon Dioxide Level 39 H Anion Gap 13 # Blood Urea Nitrogen 15 Creatinine 0.93 Glucose Level 124 Calcium Level 8.0 L Total Bilirubin 0.5 Direct Bilirubin 0.00 Indirect Bilirubin 0.5 Aspartate Amino Transf (AST/SGOT) 29 Alanine Aminotransferase (ALT/SGPT) 41 Alkaline Phosphatase 98 Total Protein 5.2 L Albumin 2.6 L Globulin 2.60 Albumin/Globulin Ratio 1.00 Vancomycin Level Trough 24.8 *H Medications Medications Current Medications Acetaminophen (Tylenol Tab) 650 mg Q4H PRN PO pain/fever; Start 07/24/17 at 07 :00; Status Future Hold Phenol (Chloraseptic Throat [place]) 2 spray Q2H PRN MT SORE THROAT Last administered on 07/29/17t 18:10; Admin Dose 2 SPRAY; Start 07/29/17 at 13:00 Diphenhydramine HCl (Benadryl) 25 mg Q6H PRN IV SLEEP Last administered on 08/01 00:19; Admin Dose 25 MG; Start 07/31/17 at 13:00 Chlorpromazine (Thorazine) 10 mg Q6 PRN IM HICCUPS Last administered on 21:21; Admin Dose 10 MG; Start 08/02/17 at 06:00 Loratadine (Claritin) 10 mg DAILY NGT Last administered on 08/18/17 10:09; Admin Dose 10 MG; Start 08/04/17 at 09:00 Hydromorphone HCl 0.5 mg 0.5 mg Q2H PRN IV PAIN Last administered on 15:45; Admin Dose 0.5 MG; Start 08/05/17 at 22:30 Meropenem/Sodium Chloride (Merrem 1 Gm/50 ml (Pmx)) 50 ml @ 100 mls/hr Q12 IVPB Last administered on 08/18/17 10:09; Admin Dose 100 MLS/HR; Start at 21:00 Hydralazine HCl (Apresoline) 10 mg Q6H PRN IV sbp>170 Last administered on 14:18; Admin Dose 10 MG; Start 08/07/17 at 18:00 Lisinopril (Zestril) 20 mg DAILY PO Last administered on 08/18/17 10:10; Admin Dose 20 MG; Start 08/10/17 at 10:30 Acetaminophen (Tylenol Tab) 650 mg Q4H PRN PO PAIN AND OR ELEVATED TEMP Last administered on 08/14/17 22:17; Admin Dose 650 MG; Start 08/10/17 at 10:30 Ondansetron HCl (Zofran Inj) 4 mg Q6H PRN IV NAUSEA AND/OR VOMITING Last administered on 08/18/17 12:09; Admin Dose 4 MG; Start 08/12/17 at 13:00 Amiodarone HCl (Cordarone) 200 mg BID PO Last administered on 08/18/17 10:11 ; Admin Dose 200 MG; Start 08/14/17 at 12:00 Pantoprazole (Protonix Tab) 40 mg DAILY@06 PO Last administered on 08/18/17 05:09; Admin Dose 40 MG; Start 08/16/17 at 06:00 Ketorolac Tromethamine (Toradol) 30 mg Q6H IV Last administered on 08/18/17 12:15; Admin Dose 30 MG; Start 08/17/17 at 12:30; Stop 08/20/17 at 12:29 Metoclopramide HCl 10 mg 10 mg Q6 PRN IV Nausea Last administered on 00:51; Admin Dose 10 MG; Start 08/17/17 at 18:00 Vancomycin HCl/ Sodium Chloride (Vancocin/NS) 250 ml @ 83.333 mls/ hr Q24H IVPB ; Start 08/19/17 at 14:00 MEKA ROBERTSON MD Aug 18, 2017 17:41
[2017-08-18 19:30] LABS: CREATININE 0.97 mg/dl (0.44-1.00); POTASSIUM 3.6 mmol/L (3.5-5.1)
--- NOTE | 2017-08-18 23:34 | PN ---
Date/Time of Note Date/Time of Note DATE: 08/18/17 TIME: 23:30 Assessment/Plan VTE Prophylaxis VTE Prophylaxis Intervention: SCD's Lines/Catheters IV Catheter Type (from Nrs): Central Line Central line still needed: Yes (cancer chemotherapy options) Urinary Cath still in place: Yes Reason Cath still needed: other (indicate) (immobility) Assessment/Plan Assessment/Plan [facility] 1. 51 year old woman now post-operative day 21 s/p left hemicolectomy for sigmoid adenocarcinoma and associated mass, complicated by a postop anastomotic leak with sepsis. POD# 13 s/p colostomy placement, with exploratory laparoscopy for drainage of abscesses and drain placement. Switched to oral pain meds yesterday, and has continued improvement overall, with no fever or nausea now. Intraoperative peritoneal cultures positive for E. coli, Enterococcus, and Staph aureus. Still complaining of considerable abdominal pain, but her exam was relatively benign. * Continue current treatment with meropenem and vancomycin. * Continue regular diet * Encourage engagement with physical therapy and out of bed to chair. * Since she is tolerating oral pain meds, I again raised the issue of transfer to a formal rehabilitation program. She feels like she is not ready, but I think she could be ready as soon as tomorrow (Saturday). 2. S/p acute respiratory failure and acute renal failure, extubated earlier this week. S/p diuresis with Bumex drip, now discontinued and voiding adequately. 3. Chronic atrial fibrillation, with an episode of atrial fibrillation earlier this week that has not recurred with normalization of her electrolytes and PO amiodarone BID. Remain stably in sinus rhythm. * Continue low-dose amiodarone by mouth * Electrolyte repletion as needed * Holding oral anticoagulation for now 4. Chronic congestive heart failure, chronic diastolic dysfunction and ejection fraction of 55% on latest outpatient echocardiogram in January 2017 and confirmed to be 50% on this admission. S/p left thoracentesis last week with removal of 400 cc 5. Anemia, acute on chronic, postop. Hemoglobin stable at 7.9g/dl today. No acute bleeding noted. * Monitor hemoglobin daily, may need blood transfusion. 6. Hypertension history. Pressures remained in the 130s systolic today, off Bumex. * Restart lisinopril * Patient was on spironolactone as an outpatient 7. Prophylaxis: Off anticoagulation, SCDs, Pepcid for GI prophylaxis. 8. Disposition: Continue volume management, telemetry monitoring for recurrent atrial fibrillation. * Full-code * Continue IV antibiotics. * Blood cultures, UA and urine cultures monitored, on top of VITA drainage. * Continue PT/OT. * Consider rehabilitation options. Bijal Minor MD PhD [phone] Subjective 24 Hr Interval Summary Free Text/Dictation Complaining of persistent aleyda-stomal pain, but stooling normally into her bag now and showing a very good appetite. Breathing is more comfortable, though she is still using oxygen per nasal cannula. Says she is too weak to walk on her own, and no physical therapy available today. No nausea despite being on PO Percocet now. Exam/Review of Systems Vital Signs Vitals Vital Signs Date Time Temp Pulse Resp B/P Pulse Ox O2 Delivery O2 Flow Rate FiO2 08/18/17 20:01 100 08/18/17 20:00 98.4 20 132/65 98 08/18/17 17:02 2.0 08/18/17 11:25 Nasal Cannula Intake and Output 08/17/17 08/17/17 08/18/17 14:59 22:59 06:59 Intake Total 2050 ml 1530 ml Output Total 3000 ml 1500 ml Balance -950 ml 30 ml Exam Constitutional: Large, well developed, serious and tired-appearing, but conversant. Respiratory: Good air movement and breathing comfortably on O2 at 2L/min nasal cannula. Cardiovascular: Symmetric pulses, regular rhythm, normal rate. Normal sinus rhythm stably on telemetry. Gastrointestinal: Colostomy in place, bilateral VITA drains still in place. Abdomen soft without rebound or guarding, but with mild apprehension. Musculoskeletal: No arthritis, 1+ pedal edema bilaterally, but not in the hands. Neurological: Alert, oriented, intact memory and mentation, W[employer] O[employer]ATOR II-XII intact, normal speech, 4/5 distal weakness. Results Result Diagram: 08/18/17 0951 08/18/17 3832 Results 24 hrs Laboratory Tests Test 08/18/17 09:51 08/18/17 14:01 08/18/17 18:52 White Blood Count 8.2 Red Blood Count 2.99 L Hemoglobin 7.9 L Hematocrit 24.9 L Mean Corpuscular Volume 83.3 Mean Corpuscular Hemoglobin 26.4 L Mean Corpuscular Hemoglobin Concent 31.7 L Red Cell Distribution Width 22.9 H Platelet Count 461 H Mean Platelet Volume 9.9 Neutrophils % Segmented Neutrophils % (Manual) 62 Band Neutrophils % (Manual) 16 H Lymphocytes % Lymphocytes % (Manual) 17 Monocytes % Monocytes % (Manual) 3 Eosinophils % Eosinophils % (Manual) 2 Basophils % Nucleated Red Blood Cells % 0.0 Neutrophils # Neutrophils # (Manual) 5.2 Band Neutrophils # 1.3 H Absolute Lymphocytes (Manual) 1.3 Lymphocytes # Monocytes # Absolute Monocytes (Manual) 0.2 L Eosinophils # Basophils # Nucleated Red Blood Cells # Platelet Estimate INCREASED Giant Platelets 2 H Polychromasia 2+ Hypochromasia 1+ Anisocytosis 2+ Microcytosis 1+ Sodium Level 134 L 132 L Potassium Level 3.0 L 3.6 Chloride Level 85 L 85 L Carbon Dioxide Level 39 H 39 H Anion Gap 13 # 12 Blood Urea Nitrogen 15 18 Creatinine 0.93 0.97 Glucose Level 124 99 Calcium Level 8.0 L 8.0 L Total Bilirubin 0.5 Direct Bilirubin 0.00 Indirect Bilirubin 0.5 Aspartate Amino Transf (AST/SGOT) 29 Alanine Aminotransferase (ALT/SGPT) 41 Alkaline Phosphatase 98 Total Protein 5.2 L Albumin 2.6 L Globulin 2.60 Albumin/Globulin Ratio 1.00 Vancomycin Level Trough 24.8 *H Medications Medications Current Medications Acetaminophen (Tylenol Tab) 650 mg Q4H PRN PO pain/fever; Start 07/24/17 at 07 :00; Status Future Hold Phenol (Chloraseptic Throat [place]) 2 spray Q2H PRN MT SORE THROAT Last administered on 07/29/17 18:10; Admin Dose 2 SPRAY; Start 07/29/17 at 13:00 Diphenhydramine HCl (Benadryl) 25 mg Q6H PRN IV SLEEP Last administered on 08/01 00:19; Admin Dose 25 MG; Start 07/31/17 at 13:00 Chlorpromazine (Thorazine) 10 mg Q6 PRN IM HICCUPS Last administered on 21:21; Admin Dose 10 MG; Start 08/02/17 at 06:00 Loratadine (Claritin) 10 mg DAILY NGT Last administered on 08/18/17 10:09; Admin Dose 10 MG; Start 08/04/17 at 09:00 Hydromorphone HCl 0.5 mg 0.5 mg Q2H PRN IV PAIN Last administered on 22:08; Admin Dose 0.5 MG; Start 08/05/17 at 22:30 Meropenem/Sodium Chloride (Merrem 1 Gm/50 ml (Pmx)) 50 ml @ 100 mls/hr Q12 IVPB Last administered on 08/18/17 22:07; Admin Dose 100 MLS/HR; Start at 21:00 Hydralazine HCl (Apresoline) 10 mg Q6H PRN IV sbp>170 Last administered on 14:18; Admin Dose 10 MG; Start 08/07/17 at 18:00 Lisinopril (Zestril) 20 mg DAILY PO Last administered on 08/18/17 10:10; Admin Dose 20 MG; Start 08/10/17 at 10:30 Acetaminophen (Tylenol Tab) 650 mg Q4H PRN PO PAIN AND OR ELEVATED TEMP Last administered on 08/14/17 22:17; Admin Dose 650 MG; Start 08/10/17 at 10:30 Ondansetron HCl (Zofran Inj) 4 mg Q6H PRN IV NAUSEA AND/OR VOMITING Last administered on 08/18/17 12:09; Admin Dose 4 MG; Start 08/12/17 at 13:00 Amiodarone HCl (Cordarone) 200 mg BID PO Last administered on 08/18/17 22:07 ; Admin Dose 200 MG; Start 08/14/17 at 12:00 Pantoprazole (Protonix Tab) 40 mg DAILY@06 PO Last administered on 08/18/17 05:09; Admin Dose 40 MG; Start 08/16/17 at 06:00 Ketorolac Tromethamine (Toradol) 30 mg Q6H IV Last administered on 08/18/17 19:07; Admin Dose 30 MG; Start 08/17/17 at 12:30; Stop 08/20/17 at 12:29 Metoclopramide HCl 10 mg 10 mg Q6 PRN IV Nausea Last administered on 22:08; Admin Dose 10 MG; Start 08/17/17 at 18:00 Vancomycin HCl/ Sodium Chloride (Vancocin/NS) 250 ml @ 83.333 mls/ hr Q24H IVPB ; Start 08/19/17 at 14:00 JAVIER MINOR M.D. Aug 18, 2017 23:34
[2017-08-19] VITALS (13 sets, daily range): BP systolic 130–145; BP diastolic 69–78; PULSE 85–101; RESP 18–22
[2017-08-19] MEDS: KETOROLAC 30 MG INJ IV SCH ×4 (01:00→18:30)
[2017-08-19 05:57] LABS: ABNORMAL IP MESSAGE 1; HEMATOCRIT 23.4 % (37.0-47.0); HEMOGLOBIN 7.5 g/dl (12.0-16.0); MEAN CORPUSCULAR HEMOGLOBIN 26.4 pg (29.0-33.0); MEAN CORPUSCULAR HGB CONC 32.1 g/dl (32.0-37.0); MEAN CORPUSCULAR VOLUME 82.4 fl (82.0-101.0); MEAN PLATELET VOLUME 9.8 fl (7.4-10.4); PLATELET COUNT 409 10^3/UL (140-415); RED BLOOD COUNT 2.84 10^6/ul (4.20-5.40); RED CELL DISTRIBUTION WIDTH 22.5 % (11.5-14.5); WHITE BLOOD COUNT 8.5 10^3/ul (4.8-10.8)
[2017-08-19] MEDS: PANTOPRAZOLE (EC) 40 MG TAB PO SCH (06:04)
[2017-08-19 06:07] LABS: POSITIVE DIFF @See below
[2017-08-19] MEDS: HYDROmorphONE 0.5 MG/0.5 ML SYG IV PRN ×4 (06:23→21:05)
[2017-08-19 07:03] LABS: CALCIUM 8.2 mg/dl (8.4-10.2); CREATININE 0.98 mg/dl (0.44-1.00); POTASSIUM 3.6 mmol/L (3.5-5.1)
[2017-08-19] MEDS: LEVALBUTEROL (NEB) 0.63 MG/3 ML AMP HHN PRN ×2 (07:12→18:30)
--- NOTE | 2017-08-19 08:37 | PN ---
Date/Time of Note Date/Time of Note DATE: 08/19/17 TIME: 08:35 Assessment/Plan VTE Prophylaxis VTE Prophylaxis Intervention: SCD's Lines/Catheters IV Catheter Type (from Nrs): Central Line Central line still needed: Yes Urinary Cath still in place: Yes Reason Cath still needed: other (indicate) Assessment/Plan Chief Complaint/Hosp Course 51 yo F with bleeding colon cancer taken to the OR for urgent resection with primary anastomosis postop course was ok and was tolerating clears until she develop afib with RVR and diaphoresis was transferred to the ICU, she developed ileus and emesis, CT scan showed anastomotic leak patient taken to the OR for washout and colostomy placement. was on pressors for one night now off. Problems: Assessment/Plan steady improvement will need to improve activity level Subjective 24 Hr Interval Summary Free Text/Dictation slow and steady recovery, tolerating diet, needs to improve nutritional status on boost and oral diet Exam/Review of Systems Vital Signs Vitals Vital Signs Date Time Temp Pulse Resp B/P Pulse Ox O2 Delivery O2 Flow Rate FiO2 08/19/17 08:03 96 08/19/17 07:26 98.5 20 143/70 99 08/19/17 07:12 2.0 08/19/17 07:12 Nasal Cannula Intake and Output 08/18/17 08/18/17 08/19/17 15:00 23:00 07:00 Intake Total 1360 ml 1200 ml Output Total 280 ml 1330 ml 800 ml Balance -280 ml 30 ml 400 ml Exam colostomy functioning and viable Results Result Diagram: 08/19/17 0531 08/19/17 0531 Results 24 hrs Laboratory Tests Test 08/18/17 09:51 08/18/17 14:01 08/18/17 18:52 08/19/17 05:31 White Blood Count 8.2 8.5 Red Blood Count 2.99 L 2.84 L Hemoglobin 7.9 L 7.5 L Hematocrit 24.9 L 23.4 L Mean Corpuscular Volume 83.3 82.4 Mean Corpuscular Hemoglobin 26.4 L 26.4 L Mean Corpuscular Hemoglobin Concent 31.7 L 32.1 Red Cell Distribution Width 22.9 H 22.5 H Platelet Count 461 H 409 Mean Platelet Volume 9.9 9.8 Neutrophils % Segmented Neutrophils % (Manual) 62 Band Neutrophils % (Manual) 16 H Lymphocytes % Lymphocytes % (Manual) 17 Monocytes % Monocytes % (Manual) 3 Eosinophils % Eosinophils % (Manual) 2 Basophils % Nucleated Red Blood Cells % 0.0 0.0 Neutrophils # Neutrophils # (Manual) 5.2 Band Neutrophils # 1.3 H Absolute Lymphocytes (Manual) 1.3 Lymphocytes # Monocytes # Absolute Monocytes (Manual) 0.2 L Eosinophils # Basophils # Nucleated Red Blood Cells # Platelet Estimate INCREASED Giant Platelets 2 H Polychromasia 2+ Hypochromasia 1+ Anisocytosis 2+ Microcytosis 1+ Sodium Level 134 L 132 L 132 L Potassium Level 3.0 L 3.6 3.6 Chloride Level 85 L 85 L 88 L Carbon Dioxide Level 39 H 39 H 39 H Anion Gap 13 # 12 9 Blood Urea Nitrogen 15 18 21 H Creatinine 0.93 0.97 0.98 Glucose Level 124 99 102 Calcium Level 8.0 L 8.0 L 8.2 L Total Bilirubin 0.5 Direct Bilirubin 0.00 Indirect Bilirubin 0.5 Aspartate Amino Transf (AST/SGOT) 29 Alanine Aminotransferase (ALT/SGPT) 41 Alkaline Phosphatase 98 Total Protein 5.2 L Albumin 2.6 L Globulin 2.60 Albumin/Globulin Ratio 1.00 Vancomycin Level Trough 24.8 *H Medications Medications Current Medications Acetaminophen (Tylenol Tab) 650 mg Q4H PRN PO pain/fever; Start 07/24/17 at 07 :00; Status Future Hold Phenol (Chloraseptic Throat [place]) 2 spray Q2H PRN MT SORE THROAT Last administered on 07/29/17 18:10; Admin Dose 2 SPRAY; Start 07/29/17 at 13:00 Diphenhydramine HCl (Benadryl) 25 mg Q6H PRN IV SLEEP Last administered on 08/01 00:19; Admin Dose 25 MG; Start 07/31/17 at 13:00 Chlorpromazine (Thorazine) 10 mg Q6 PRN IM HICCUPS Last administered on 21:21; Admin Dose 10 MG; Start 08/02/17 at 06:00 Loratadine (Claritin) 10 mg DAILY NGT Last administered on 08/18/17 10:09; Admin Dose 10 MG; Start 08/04/17 at 09:00 Hydromorphone HCl 0.5 mg 0.5 mg Q2H PRN IV PAIN Last administered on 06:23; Admin Dose 0.5 MG; Start 08/05/17 at 22:30 Meropenem/Sodium Chloride (Merrem 1 Gm/50 ml (Pmx)) 50 ml @ 100 mls/hr Q12 IVPB Last administered on 08/18/17 22:07; Admin Dose 100 MLS/HR; Start at 21:00 Hydralazine HCl (Apresoline) 10 mg Q6H PRN IV sbp>170 Last administered on 14:18; Admin Dose 10 MG; Start 08/07/17 at 18:00 Lisinopril (Zestril) 20 mg DAILY PO Last administered on 08/18/17 10:10; Admin Dose 20 MG; Start 08/10/17 at 10:30 Acetaminophen (Tylenol Tab) 650 mg Q4H PRN PO PAIN AND OR ELEVATED TEMP Last administered on 08/14/17 22:17; Admin Dose 650 MG; Start 08/10/17 at 10:30 Ondansetron HCl (Zofran Inj) 4 mg Q6H PRN IV NAUSEA AND/OR VOMITING Last administered on 08/18/17 12:09; Admin Dose 4 MG; Start 08/12/17 at 13:00 Amiodarone HCl (Cordarone) 200 mg BID PO Last administered on 08/18/17 22:07 ; Admin Dose 200 MG; Start 08/14/17 at 12:00 Pantoprazole (Protonix Tab) 40 mg DAILY@06 PO Last administered on 08/19/17 06:04; Admin Dose 40 MG; Start 08/16/17 at 06:00 Ketorolac Tromethamine (Toradol) 30 mg Q6H IV Last administered on 08/19/17 06:05; Admin Dose 30 MG; Start 08/17/17 at 12:30; Stop 08/20/17 at 12:29 Metoclopramide HCl 10 mg 10 mg Q6 PRN IV Nausea Last administered on 22:08; Admin Dose 10 MG; Start 08/17/17 at 18:00 Vancomycin HCl/ Sodium Chloride (Vancocin/NS) 250 ml @ 83.333 mls/ hr Q24H IVPB ; Start 08/19/17 at 14:00 Hilario BOTELLO Aug 19, 2017 08:37
[2017-08-19] MEDS: MEROPENEM 1 GM/50ML(PMX) 50 ML IVPB SCH ×2 (09:40→21:02)
--- NOTE | 2017-08-19 09:40 | RADRPT ---
PROCEDURE: XR Chest. CLINICAL INDICATION: Shortness of breath TECHNIQUE: Single portable view of the chest was obtained. COMPARISON: 08/15/2017 and additional priors FINDINGS: Cardiac/vascular structures: Stable cardiomediastinal silhouette. Right IJ catheter tip over the ca voatrial junction with similar loop over the insertion site. Pulmonary: Similar bibasilar air space opacities and small bilateral pleural effusions. No evidence of pneumothorax. Osseous structures: Normal Soft tissues: Normal IMPRESSION: 1. Stable position of right IJ catheter. 2. Similar bibasilar air space opacities representing atelectasis or pneumonia. 3. Similar small bilateral pleural effusions. RPTAT:AAJJ Physician Ibrahima Date Time Electronically viewed and signed by Dee Lantigua Physician on 08/19/2017 09:39 /
[2017-08-19] MEDS: LORATADINE 10 MG TAB NGT SCH (09:41)
[2017-08-19] MEDS: AMIODARONE 200 MG TAB PO SCH ×2 (09:43→21:02)
[2017-08-19] MEDS: LISINOPRIL 20 MG TAB PO SCH (09:43)
[2017-08-19 09:58] LABS: ANISOCYTOSIS 2+ (0-0); EOSINOPHILS % (M) 3 % (0-7); GIANT THROMBO% (M) 2 % (0-0); HYPOCHROMASIA 2+ (0-0); MICROCYTOSIS 2+ (0-0); MONOCYTES % (M) 11 % (0-11); PLATELET ESTIMATE NORMAL; POLYCHROMASIA 3+ (0-0)
[2017-08-19] MEDS: ONDANSETRON 4 MG INJ IV PRN ×2 (10:20→21:17)
[2017-08-19] MEDS ORDERED: SOD CHLORIDE 0.9% 250 ML IV* ONE (11:12)
[2017-08-19] MEDS ORDERED: BUMETANIDE 1 MG INJ IV SCH (11:30)
--- NOTE | 2017-08-19 11:40 | PN ---
Date/Time of Note Date/Time of Note DATE: 08/19/17 TIME: 11:04 Assessment/Plan VTE Prophylaxis VTE Prophylaxis Intervention: SCD's Lines/Catheters IV Catheter Type (from Nrs): Central Line Central line still needed: Yes (Right IJ to be removed today with planned placement of a midline) Urinary Cath still in place: Yes Reason Cath still needed: other (indicate) (While diuresing, to be removed soon ) Assessment/Plan Assessment/Plan 51 year old female with: 1. Postop anastomotic leak with sepsis, status post ex lap with drainage of abscesses, drain placement, partial colectomy and colostomy POD#14 Status post Left hemicolectomy for sigmoid adenocarcinoma/mass POD#22 Intraoperative/intraperitoneal cultures positive for E. coli, enterococcus, staph aureus. VITA drain culture sent recently with enterococcus, Enterobacter cloacae and staph aureus. Patient still on appropriate antibiotics based on previous cultures and most recent cultures, leukocytosis improving except for ongoing bandemia. She remains afebrile Follow-up infectious disease recommendations today regarding choices of antibiotics and length of treatment based on current data. Patient on regular diet per Dr. Aldana. Encourage physical therapy and out of bed to chair at least. She will need detention facility placement at time of discharge 2. S/p Acute respiratory failure, postoperatively secondary to volume overload. Status post diuresis with Bumex drip and scheduled Bumex. Much improved volume status and off Bumex currently. Plan for blood transfusion today with 1 dose of Bumex in between the 2 units. Appreciate recommendations from nephrology and pulmonary. 3. Atrial fibrillation, chronic, maintaining sinus rhythm, will address anemia with packed red blood cell transfusions today, keep electrolytes within normal. Continue low-dose amiodarone p.o. Appreciate cardiology recommendations. Anticoagulation discontinued, discussed with cardiology for now will just leave her off anticoagulation for the remainder of her postoperative course. 4. Chronic congestive heart failure, chronic diastolic dysfunction and ejection fraction of 55% on latest outpatient echocardiogram in January 2017 and confirmed to be 50% on this admission. Status post CHF exacerbation, better volume status. Current diuresis with Bumex as needed for now. 5. Acute kidney injury, in setting of sepsis, also had the contrast studies 2. Resolved, renal function back to normal. Leal catheter in place. Adequate urine output, patient off fluids, Bumex as needed, will plan on giving today with packed red blood cell transfusion. Follow-up recommendations from nephrology, Dr. Kiser 6. Anemia, acute on chronic, postop: Hemoglobin seems to be trending down, hemoglobin today is 7.5, given known atrial fibrillation, we will transfuse 2 units of packed red blood cells today. Monitor volume status. Continue to monitor hemoglobin daily No acute bleeding noted. 7. Hypertension, all antihypertensive on hold for now while patient being aggressively diuresed. Prophylaxis: Off anticoagulation, SCDs, Pepcid for GI prophylaxis. Disposition: Continue volume management, renal function back to normal. Please keep on telemetry for now, patient still in serious condition with high risk to go in and out of atrial fibrillation and or respiratory distress. PRBC transfusion, DC central line, physical therapy. Subjective 24 Hr Interval Summary Free Text/Dictation Patient remains afebrile, again bandemia noted on peripheral smear, on multiple antibiotics, VITA drain culture polymicrobial, will be addressed with infectious disease regarding length of treatment, patient may need a longer treatment length than just 2 weeks. She is tolerating p.o. however still with severe abdominal pain requiring every 2 hours narcotics IV which is not adequate for detention facility disposition, also until clarified with general surgery regarding VITA drain output patient no suitable for subacute so far. Exam/Review of Systems Vital Signs Vitals Vital Signs Date Time Temp Pulse Resp B/P Pulse Ox O2 Delivery O2 Flow Rate FiO2 08/19/17 08:03 96 08/19/17 07:26 98.5 20 143/70 99 08/19/17 07:12 2.0 08/19/17 07:12 Nasal Cannula Intake and Output 08/18/17 08/18/17 08/19/17 14:59 22:59 06:59 Intake Total 1360 ml 1200 ml Output Total 280 ml 1330 ml 800 ml Balance -280 ml 30 ml 400 ml Exam Constitutional: alert, oriented, well developed Respiratory: clear to auscultation, normal air movement Cardiovascular: nl pulses, regular rate and rhythm Gastrointestinal: soft, tender (Diffuse, still requiring frequent narcotic IV dosing) Musculoskeletal: nl extremities to inspection, swelling (Much improved anasarca ) Extremities: normal pulses Neurological: [employer] II-XII intact, nl mental status, nl speech, other (Weakness improving) Results Result Diagram: 08/19/1753008/19/17530 Results 24 hrs Laboratory Tests Test 08/18/17 14:01 08/18/17 18:52 08/19/17 05:31 Vancomycin Level Trough 24.8 *H Sodium Level 132 L 132 L Potassium Level 3.6 3.6 Chloride Level 85 L 88 L Carbon Dioxide Level 39 H 39 H Anion Gap 12 9 Blood Urea Nitrogen 18 21 H Creatinine 0.97 0.98 Glucose Level 99 102 Calcium Level 8.0 L 8.2 L White Blood Count 8.5 Red Blood Count 2.84 L Hemoglobin 7.5 L Hematocrit 23.4 L Mean Corpuscular Volume 82.4 Mean Corpuscular Hemoglobin 26.4 L Mean Corpuscular Hemoglobin Concent 32.1 Red Cell Distribution Width 22.5 H Platelet Count 409 Mean Platelet Volume 9.8 Neutrophils % Segmented Neutrophils % (Manual) 46 Band Neutrophils % (Manual) 25 H Lymphocytes % Lymphocytes % (Manual) 15 Monocytes % Monocytes % (Manual) 11 Eosinophils % Eosinophils % (Manual) 3 Basophils % Nucleated Red Blood Cells % 0.0 Neutrophils # Neutrophils # (Manual) 4.1 Band Neutrophils # 2.1 H Absolute Lymphocytes (Manual) 1.2 Lymphocytes # Monocytes # Absolute Monocytes (Manual) 0.9 Eosinophils # Basophils # Nucleated Red Blood Cells # Platelet Estimate NORMAL Giant Platelets 2 H Polychromasia 3+ Hypochromasia 2+ Anisocytosis 2+ Microcytosis 2+ Medications Medications Current Medications Acetaminophen (Tylenol Tab) 650 mg Q4H PRN PO pain/fever; Start 07/24/17 at 07 :00; Status Future Hold Phenol (Chloraseptic Throat [place]) 2 spray Q2H PRN MT SORE THROAT Last administered on 07/29/17 18:10; Admin Dose 2 SPRAY; Start 07/29/17 at 13:00 Diphenhydramine HCl (Benadryl) 25 mg Q6H PRN IV SLEEP Last administered on 08/01 00:19; Admin Dose 25 MG; Start 07/31/17 at 13:00 Chlorpromazine (Thorazine) 10 mg Q6 PRN IM HICCUPS Last administered on 21:21; Admin Dose 10 MG; Start 08/02/17 at 06:00 Loratadine (Claritin) 10 mg DAILY NGT Last administered on 08/19/17 09:41; Admin Dose 10 MG; Start 08/04/17 at 09:00 Hydromorphone HCl 0.5 mg 0.5 mg Q2H PRN IV PAIN Last administered on 10:09; Admin Dose 0.5 MG; Start 08/05/17 at 22:30 Meropenem/Sodium Chloride (Merrem 1 Gm/50 ml (Pmx)) 50 ml @ 100 mls/hr Q12 IVPB Last administered on 08/19/17 09:40; Admin Dose 100 MLS/HR; Start at 21:00 Hydralazine HCl (Apresoline) 10 mg Q6H PRN IV sbp>170 Last administered on 14:18; Admin Dose 10 MG; Start 08/07/17 at 18:00 Lisinopril (Zestril) 20 mg DAILY PO Last administered on 08/19/17 09:43; Admin Dose 20 MG; Start 08/10/17 at 10:30 Acetaminophen (Tylenol Tab) 650 mg Q4H PRN PO PAIN AND OR ELEVATED TEMP Last administered on 08/14/17 22:17; Admin Dose 650 MG; Start 08/10/17 at 10:30 Ondansetron HCl (Zofran Inj) 4 mg Q6H PRN IV NAUSEA AND/OR VOMITING Last administered on 08/19/17 10:20; Admin Dose 4 MG; Start 08/12/17 at 13:00 Amiodarone HCl (Cordarone) 200 mg BID PO Last administered on 08/19/17 09:43 ; Admin Dose 200 MG; Start 08/14/17 at 12:00 Pantoprazole (Protonix Tab) 40 mg DAILY@06 PO Last administered on 08/19/17 06:04; Admin Dose 40 MG; Start 08/16/17 at 06:00 Ketorolac Tromethamine (Toradol) 30 mg Q6H IV Last administered on 08/19/17 06:05; Admin Dose 30 MG; Start 08/17/17 at 12:30; Stop 08/20/17 at 12:29 Metoclopramide HCl 10 mg 10 mg Q6 PRN IV Nausea Last administered on 22:08; Admin Dose 10 MG; Start 08/17/17 at 18:00 Vancomycin HCl (Vancocin) 250 ml @ 125 mls/hr Q24H IVPB ; Start 08/19/17 at 13 :00 RAE CALVO Aug 19, 2017 11:14 RAE CALVO Aug 19, 2017 11:14
[2017-08-19] MEDS: VANCOMYCIN 1 GM in NS 250 ML IVPB SCH (12:57)
--- NOTE | 2017-08-19 13:05 | PN ---
Date/Time of Note Date/Time of Note DATE: 08/19/17 TIME: 13:04 Assessment/Plan VTE Prophylaxis VTE Prophylaxis Intervention: SCD's Lines/Catheters IV Catheter Type (from Nrsg): Central Line Central line still needed: No Urinary Cath still in place: Yes Reason Cath still needed: urinary retention Assessment/Plan Assessment/Plan Paroxysmal atrial fibrillation with rapid ventricular rates, currently sinus Acute decompensated systolic and diastolic congestive heart failure Low normal ejection fraction 50% Colon mass status post colon surgery July 26, 2017 and repeat August 05, 2017 Acute kidney injury, improved Sepsis Vent dependent respiratory failure, status post extubation -s/p episodes of paroxysmal atrial fibrillation > now in nsr ideally maintain potassium above 4.0 and magnesium above 2.0. Diuretics as per our nephrology colleagues. -keep off anticoagulation at this time -on amiodarone Subjective 24 Hr Interval Summary Free Text/Dictation The patient with no cahnge Exam/Review of Systems Vital Signs Vitals Vital Signs Date Time Temp Pulse Resp B/P Pulse Ox O2 Delivery O2 Flow Rate FiO2 08/19/17 12:03 85 08/19/17 11:56 98.4 20 130/71 98 08/19/17 07:12 2.0 08/19/17 07:12 Nasal Cannula Intake and Output 08/18/17 08/18/17 08/19/17 15:00 23:00 07:00 Intake Total 1360 ml 1200 ml Output Total 280 ml 1330 ml 800 ml Balance -280 ml 30 ml 400 ml Results Result Diagram: 08/19/17 0531 08/19/17 0531 Results 24 hrs Laboratory Tests Test 08/18/17 14:01 08/18/17 18:52 08/19/17 05:31 Vancomycin Level Trough 24.8 *H Sodium Level 132 L 132 L Potassium Level 3.6 3.6 Chloride Level 85 L 88 L Carbon Dioxide Level 39 H 39 H Anion Gap 12 9 Blood Urea Nitrogen 18 21 H Creatinine 0.97 0.98 Glucose Level 99 102 Calcium Level 8.0 L 8.2 L White Blood Count 8.5 Red Blood Count 2.84 L Hemoglobin 7.5 L Hematocrit 23.4 L Mean Corpuscular Volume 82.4 Mean Corpuscular Hemoglobin 26.4 L Mean Corpuscular Hemoglobin Concent 32.1 Red Cell Distribution Width 22.5 H Platelet Count 409 Mean Platelet Volume 9.8 Neutrophils % Segmented Neutrophils % (Manual) 46 Band Neutrophils % (Manual) 25 H Lymphocytes % Lymphocytes % (Manual) 15 Monocytes % Monocytes % (Manual) 11 Eosinophils % Eosinophils % (Manual) 3 Basophils % Nucleated Red Blood Cells % 0.0 Neutrophils # Neutrophils # (Manual) 4.1 Band Neutrophils # 2.1 H Absolute Lymphocytes (Manual) 1.2 Lymphocytes # Monocytes # Absolute Monocytes (Manual) 0.9 Eosinophils # Basophils # Nucleated Red Blood Cells # Platelet Estimate NORMAL Giant Platelets 2 H Polychromasia 3+ Hypochromasia 2+ Anisocytosis 2+ Microcytosis 2+ Medications Medications Current Medications Acetaminophen (Tylenol Tab) 650 mg Q4H PRN PO pain/fever; Start 07/24/17 at 07 :00; Status Future Hold Phenol (Chloraseptic Throat [place]) 2 spray Q2H PRN MT SORE THROAT Last administered on 07/29/17 18:10; Admin Dose 2 SPRAY; Start 07/29/17 at 13:00 Diphenhydramine HCl (Benadryl) 25 mg Q6H PRN IV SLEEP Last administered on 08/01 00:19; Admin Dose 25 MG; Start 07/31/17 at 13:00 Chlorpromazine (Thorazine) 10 mg Q6 PRN IM HICCUPS Last administered on 21:21; Admin Dose 10 MG; Start 08/02/17 at 06:00 Loratadine (Claritin) 10 mg DAILY NGT Last administered on 08/19/17 09:41; Admin Dose 10 MG; Start 08/04/17 at 09:00 Hydromorphone HCl 0.5 mg 0.5 mg Q2H PRN IV PAIN Last administered on 10:09; Admin Dose 0.5 MG; Start 08/05/17 at 22:30 Meropenem/Sodium Chloride (Merrem 1 Gm/50 ml (Pmx)) 50 ml @ 100 mls/hr Q12 IVPB Last administered on 08/19/17 09:40; Admin Dose 100 MLS/HR; Start at 21:00 Hydralazine HCl (Apresoline) 10 mg Q6H PRN IV sbp>170 Last administered on 14:18; Admin Dose 10 MG; Start 08/07/17 at 18:00 Lisinopril (Zestril) 20 mg DAILY PO Last administered on 08/19/17 09:43; Admin Dose 20 MG; Start 08/10/17 at 10:30 Acetaminophen (Tylenol Tab) 650 mg Q4H PRN PO PAIN AND OR ELEVATED TEMP Last administered on 08/14/17 22:17; Admin Dose 650 MG; Start 08/10/17 at 10:30 Ondansetron HCl (Zofran Inj) 4 mg Q6H PRN IV NAUSEA AND/OR VOMITING Last administered on 08/19/17 10:20; Admin Dose 4 MG; Start 08/12/17 at 13:00 Amiodarone HCl (Cordarone) 200 mg BID PO Last administered on 08/19/17 09:43 ; Admin Dose 200 MG; Start 08/14/17 at 12:00 Pantoprazole (Protonix Tab) 40 mg DAILY@06 PO Last administered on 08/19/17 06:04; Admin Dose 40 MG; Start 08/16/17 at 06:00 Ketorolac Tromethamine (Toradol) 30 mg Q6H IV Last administered on 08/19/17 06:05; Admin Dose 30 MG; Start 08/17/17 at 12:30; Stop 08/20/17 at 12:29 Metoclopramide HCl 10 mg 10 mg Q6 PRN IV Nausea Last administered on 22:08; Admin Dose 10 MG; Start 08/17/17 at 18:00 Vancomycin HCl (Vancocin) 250 ml @ 125 mls/hr Q24H IVPB ; Start 08/19/17 at 13 :00 Bumetanide (Bumex) 1 mg ONCE IV ; Start 08/19/17 at 11:30; Stop 08/19/17 at 23 :00 MURPHY MARIANO MD Aug 19, 2017 13:05
[2017-08-19] MEDS ORDERED: VANCOMYCIN 1.25 GM in SOD CHLORIDE 0.9% 250 ML IVPB SCH (14:00)
[2017-08-19] MEDS ORDERED: VITAMIN A & D 5 GM OINT PACKET TOP ONE (15:43)
--- NOTE | 2017-08-19 18:38 | PN ---
DATE: 08/19/2017 SUBJECTIVE: No acute changes. The patient is sleeping, looks comfortable. No fevers. LABORATORY: WBC 8.5, platelets 409, bands 25. BUN 21, creatinine 0.98. MICROBIOLOGY: fluid growing Enterobacter cloacae, MRSA and Enterococcus species. ANTIMICROBIALS: The patient remains on vancomycin and meropenem. INDWELLINGS: Leal, VITA, colostomy. PHYSICAL EXAMINATION: GENERAL: Obese, well-developed, ill-appearing, middle-aged woman who is in no distress. HEENT: Head atraumatic, normocephalic. Sclerae anicteric. Buccal mucosa dry. NECK: Supple. CHEST: Rise symmetrical. Breath sounds diminished to bases. HEART: S1, S2. ABDOMEN: Soft, bowel tones present. EXTREMITIES: Without cyanosis. ASSESSMENT: 1. Systemic inflammatory response syndrome secondary to intra-abdominal pathology with [facility] fluid culture growing multiple organisms, final identification pending, the patient is on appropri ate antibiotics. 2. Status post septic shock. 3. Status post respiratory failure. 4. Colon cancer, status post resection complicated by , status post exploratory laparotomy, dr rodas of abscesses and partial colectomy with colostomy on 08/05/2017. 5. Obesity. 6. Status post thoracentesis for left pleural effusion. PLAN: The patient remains stable. Still with significant bandemia. We will continue her on curren t antimicrobials. Await for final cultures from . Continue supportive care. Follow surgical rec ommendations. Dictated By: YG TARANGO UNDERWRITING TECHNICIAN for LUIS FERNANDO SURESH MD NI/NTS Conf#: [id number] DID#: [id number] CC: CECILIA LEON MD;*EndCC*
[2017-08-19] MEDS: ACETAMINOPHEN 325 MG TAB PO PRN (21:02)
--- NOTE | 2017-08-19 21:26 | CONS ---
Date/Time of Note Date/Time of Note DATE: 08/19/17 TIME: 21:25 Assessment/Plan Assessment/Plan Additional Assessment/Plan 1. Oliguric EJ due to ATN from Shock- Multifactorial septic from peritonitis + Hemorrhagic- Improving, making good urine 2. Acute hyperkalemia due to EJ- Resolved 3. Metabolic acidosis with lactic acidosis- Improved much better, 4. acute resp failure, possible Asp PNA vs HCAP - pt remained on ventilator post operatively ,s/p US throacentesis 400 cc removed from left chest on - s/p extubation on 08/09/17 5. Septic shock requiring pressors, now off levophed 6. Status post Left hemicolectomy for sigmoid adenocarcinoma/mass POD#7, s/p total of 4 units pRBC since admission. - again pt underwent Exploratory laparotomy with intra- abdominal abscess drainage, Placement of percutaneous Maurisio drains #19 x2. , Partial colectomy.Formation of end colostomy with Corona's pouch. on 08/05/17 7. Atrial fibrillation 8. Chronic diastolic heart failure with EF 55% 9. Hypocalcemia with hypoalbuminemia 10. Hypernatremia - resolved with D5W Plan: - s/p Bumex gtt with IV albumin 08/13/17- HCo3 39- monitor it Monitor electrolytes and Replace as needed will continue to follow up along with other subspecialist Consultation Date/Type/Reason Admit Date/Time Jul 24, 2017 at 06:16 Initial Consult Date 08/05/17 Type of Consultation: NEPHROLOGY Referring Provider: RAE CALVO Exam/Review of Systems Vital Signs Vitals Vital Signs Date Time Temp Pulse Resp B/P Pulse Ox O2 Delivery O2 Flow Rate FiO2 08/19/17 20:41 101.8 101 18 145/78 97 08/19/17 18:31 Nasal Cannula 2.0 Intake and Output 08/18/17 08/18/17 08/19/17 15:00 23:00 07:00 Intake Total 1360 ml 1200 ml Output Total 280 ml 1330 ml 800 ml Balance -280 ml 30 ml 400 ml Results Result Diagram: 08/19/17 0531 08/19/17 0531 Results 24 hrs Laboratory Tests Test 08/19/17 05:31 White Blood Count 8.5 Red Blood Count 2.84 L Hemoglobin 7.5 L Hematocrit 23.4 L Mean Corpuscular Volume 82.4 Mean Corpuscular Hemoglobin 26.4 L Mean Corpuscular Hemoglobin Concent 32.1 Red Cell Distribution Width 22.5 H Platelet Count 409 Mean Platelet Volume 9.8 Neutrophils % Segmented Neutrophils % (Manual) 46 Band Neutrophils % (Manual) 25 H Lymphocytes % Lymphocytes % (Manual) 15 Monocytes % Monocytes % (Manual) 11 Eosinophils % Eosinophils % (Manual) 3 Basophils % Nucleated Red Blood Cells % 0.0 Neutrophils # Neutrophils # (Manual) 4.1 Band Neutrophils # 2.1 H Absolute Lymphocytes (Manual) 1.2 Lymphocytes # Monocytes # Absolute Monocytes (Manual) 0.9 Eosinophils # Basophils # Nucleated Red Blood Cells # Platelet Estimate NORMAL Giant Platelets 2 H Polychromasia 3+ Hypochromasia 2+ Anisocytosis 2+ Microcytosis 2+ Sodium Level 132 L Potassium Level 3.6 Chloride Level 88 L Carbon Dioxide Level 39 H Anion Gap 9 Blood Urea Nitrogen 21 H Creatinine 0.98 Glucose Level 102 Calcium Level 8.2 L Medications Medications Current Medications Acetaminophen (Tylenol Tab) 650 mg Q4H PRN PO pain/fever; Start 07/24/17 at 07 :00; Status Future Hold Phenol (Chloraseptic Throat [place]) 2 spray Q2H PRN MT SORE THROAT Last administered on 07/29/17 18:10; Admin Dose 2 SPRAY; Start 07/29/17 at 13:00 Diphenhydramine HCl (Benadryl) 25 mg Q6H PRN IV SLEEP Last administered on 08/01 00:19; Admin Dose 25 MG; Start 07/31/17 at 13:00 Chlorpromazine (Thorazine) 10 mg Q6 PRN IM HICCUPS Last administered on 21:21; Admin Dose 10 MG; Start 08/02/17 at 06:00 Loratadine (Claritin) 10 mg DAILY NGT Last administered on 08/19/17 09:41; Admin Dose 10 MG; Start 08/04/17 at 09:00 Hydromorphone HCl 0.5 mg 0.5 mg Q2H PRN IV PAIN Last administered on 21:05; Admin Dose 0.5 MG; Start 08/05/17 at 22:30 Meropenem/Sodium Chloride (Merrem 1 Gm/50 ml (Pmx)) 50 ml @ 100 mls/hr Q12 IVPB Last administered on 08/19/17 21:02; Admin Dose 100 MLS/HR; Start at 21:00 Hydralazine HCl (Apresoline) 10 mg Q6H PRN IV sbp>170 Last administered on 14:18; Admin Dose 10 MG; Start 08/07/17 at 18:00 Lisinopril (Zestril) 20 mg DAILY PO Last administered on 08/19/17 09:43; Admin Dose 20 MG; Start 08/10/17 at 10:30 Acetaminophen (Tylenol Tab) 650 mg Q4H PRN PO PAIN AND OR ELEVATED TEMP Last administered on 08/19/17 21:02; Admin Dose 650 MG; Start 08/10/17 at 10:30 Ondansetron HCl (Zofran Inj) 4 mg Q6H PRN IV NAUSEA AND/OR VOMITING Last administered on 08/19/17 21:17; Admin Dose 4 MG; Start 08/12/17 at 13:00 Amiodarone HCl (Cordarone) 200 mg BID PO Last administered on 08/19/17 21:02 ; Admin Dose 200 MG; Start 08/14/17 at 12:00 Pantoprazole (Protonix Tab) 40 mg DAILY@06 PO Last administered on 08/19/17 06:04; Admin Dose 40 MG; Start 08/16/17 at 06:00 Ketorolac Tromethamine (Toradol) 30 mg Q6H IV Last administered on 08/19/17 12:57; Admin Dose 30 MG; Start 08/17/17 at 12:30; Stop 08/20/17 at 12:29 Metoclopramide HCl 10 mg 10 mg Q6 PRN IV Nausea Last administered on 22:08; Admin Dose 10 MG; Start 08/17/17 at 18:00 Vancomycin HCl (Vancocin) 250 ml @ 125 mls/hr Q24H IVPB Last administered on 08/19/17 12:57; Admin Dose 125 MLS/HR; Start 08/19/17 at 13:00 Bumetanide (Bumex) 1 mg ONCE IV Last administered on 08/19/17 12:56; Admin Dose 1 MG; Start 08/19/17 at 11:30; Stop 08/19/17 at 23:00 MEKA ROBERTSON MD Aug 19, 2017 21:26
[2017-08-20] VITALS (12 sets, daily range): BP systolic 117–143; BP diastolic 67–77; PULSE 76–99; RESP 19–20
[2017-08-20] MEDS: KETOROLAC 30 MG INJ IV SCH ×2 (00:16→05:58)
[2017-08-20] MEDS: HYDROmorphONE 0.5 MG/0.5 ML SYG IV PRN ×8 (00:21→20:27)
[2017-08-20] MEDS: PANTOPRAZOLE (EC) 40 MG TAB PO SCH (05:58)
[2017-08-20 07:28] LABS: HEMATOCRIT 27.6 % (37.0-47.0); HEMOGLOBIN 8.8 g/dl (12.0-16.0); MEAN CORPUSCULAR HEMOGLOBIN 26.4 pg (29.0-33.0); MEAN CORPUSCULAR HGB CONC 31.9 g/dl (32.0-37.0); MEAN CORPUSCULAR VOLUME 82.9 fl (82.0-101.0); MEAN PLATELET VOLUME 9.7 fl (7.4-10.4); PLATELET COUNT 346 10^3/UL (140-415); RED BLOOD COUNT 3.33 10^6/ul (4.20-5.40)
[2017-08-20 07:30] LABS: POSITIVE DIFF @See below
[2017-08-20 07:58] LABS: ALBUMIN 2.4 g/dl (3.3-4.9); ALBUMIN/GLOBULIN RATIO 0.8; BILIRUBIN,INDIRECT 0.7 mg/dl (0-1.1); BILIRUBIN,TOTAL 0.7 mg/dl (0.2-1.3); CALCIUM 8.4 mg/dl (8.4-10.2); CREATININE 0.85 mg/dl (0.44-1.00); POTASSIUM 3.6 mmol/L (3.5-5.1); TOTAL PROTEIN 5.4 g/dl (6.1-8.1)
[2017-08-20] MEDS: MEROPENEM 1 GM/50ML(PMX) 50 ML IVPB SCH ×2 (08:18→20:26)
[2017-08-20] MEDS: LISINOPRIL 20 MG TAB PO SCH (08:19)
[2017-08-20] MEDS: AMIODARONE 200 MG TAB PO SCH ×2 (08:19→20:27)
[2017-08-20] MEDS: LORATADINE 10 MG TAB NGT SCH (08:20)
[2017-08-20 08:21] LABS: MAGNESIUM 1.6 mg/dl (1.7-2.5); PHOSPHORUS 4.6 mg/dl (2.5-4.9)
[2017-08-20] MEDS: ONDANSETRON 4 MG INJ IV PRN ×3 (08:24→21:18)
[2017-08-20 09:30] LABS: ANISOCYTOSIS 2+ (0-0); EOSINOPHILS % (M) 5 % (0-7); HYPOCHROMASIA 1+ (0-0); MICROCYTOSIS 2+ (0-0); MONOCYTES % (M) 9 % (0-11); MYELOCYTES % (M) 1 % (0-0); PLATELET ESTIMATE NORMAL; POLYCHROMASIA 3+ (0-0)
[2017-08-20] MEDS ORDERED: POTASSIUM CHLORIDE (SR) 20 MEQ TAB PO STA (11:14)
--- NOTE | 2017-08-20 11:25 | PN ---
Date/Time of Note Date/Time of Note DATE: 08/20/17 TIME: 11:17 Assessment/Plan Lines/Catheters IV Catheter Type (from [facility]): Mid Line Urinary Cath still in place: Yes Assessment/Plan Assessment/Plan 51 year old female with: 1. Postop anastomotic leak with sepsis, status post ex lap with drainage of abscesses, drain placement, partial colectomy and colostomy POD#14 Status post Left hemicolectomy for sigmoid adenocarcinoma/mass POD#22 Intraoperative/intraperitoneal cultures positive for E. coli, enterococcus, staph aureus. VITA drain culture sent recently with enterococcus, Enterobacter cloacae and staph aureus. Patient still on appropriate antibiotics based on previous cultures and most recent cultures, leukocytosis improving except for ongoing bandemia. She remains afebrile Follow-up infectious disease recommendations today regarding choices of antibiotics and length of treatment based on current data. Patient on regular diet per Dr. Aldana. Encourage physical therapy and out of bed to chair at least. She will need fci facility placement at time of discharge 2. S/p Acute respiratory failure, postoperatively secondary to volume overload. Status post diuresis with Bumex drip and scheduled Bumex. Much improved volume status and off Bumex currently. Plan for blood transfusion today with 1 dose of Bumex in between the 2 units. Appreciate recommendations from nephrology and pulmonary. 3. Atrial fibrillation, chronic, maintaining sinus rhythm, will address anemia with packed red blood cell transfusions today, keep electrolytes within normal. Continue low-dose amiodarone p.o. Appreciate cardiology recommendations. Anticoagulation discontinued, discussed with cardiology for now will just leave her off anticoagulation for the remainder of her postoperative course. 4. Chronic congestive heart failure, chronic diastolic dysfunction and ejection fraction of 55% on latest outpatient echocardiogram in January 2017 and confirmed to be 50% on this admission. Status post CHF exacerbation, better volume status. Current diuresis with Bumex as needed for now. 5. Acute kidney injury, in setting of sepsis, also had the contrast studies 2. Resolved, renal function back to normal. Leal catheter in place. Adequate urine output, patient off fluids, Bumex as needed, will plan on giving today with packed red blood cell transfusion. Follow-up recommendations from nephrology, Dr. Kiser 6. Anemia, acute on chronic, postop: Hemoglobin seems to be trending down, hemoglobin today is 7.5, given known atrial fibrillation, we will transfuse 2 units of packed red blood cells today. Monitor volume status. Continue to monitor hemoglobin daily No acute bleeding noted. 7. Hypertension, all antihypertensive on hold for now while patient being aggressively diuresed. Prophylaxis: Off anticoagulation, SCDs, Pepcid for GI prophylaxis. Disposition: Continue volume management, renal function back to normal. Please keep on telemetry for now, patient still in serious condition with high risk to go in and out of atrial fibrillation and or respiratory distress. PRBC transfusion, DC central line, physical therapy. Exam/Review of Systems Vital Signs Vitals Vital Signs Date Time Temp Pulse Resp B/P Pulse Ox O2 Delivery O2 Flow Rate FiO2 08/20/17 08:02 81 08/20/17 08:00 Nasal Cannula 2.0 08/20/17 07:53 97.7 20 117/77 96 Intake and Output 08/19/17 08/19/17 08/20/17 14:59 22:59 06:59 Intake Total 300 ml 1622 ml 320 ml Output Total 800 ml 460 ml Balance 300 ml 822 ml -140 ml Results Result Diagram: 08/20/17 0628 08/20/17 0628 Results 24 hrs Laboratory Tests Test 08/20/17 06:06 08/20/17 06:28 Lab Scanned Report BLOOD TRANSFUSION White Blood Count 7.0 Red Blood Count 3.33 L Hemoglobin 8.8 L Hematocrit 27.6 L Mean Corpuscular Volume 82.9 Mean Corpuscular Hemoglobin 26.4 L Mean Corpuscular Hemoglobin Concent 31.9 L Red Cell Distribution Width 21.0 H Platelet Count 346 Mean Platelet Volume 9.7 Neutrophils % Segmented Neutrophils % (Manual) 47 Band Neutrophils % (Manual) 15 H Lymphocytes % Lymphocytes % (Manual) 24 Monocytes % Monocytes % (Manual) 9 Eosinophils % Eosinophils % (Manual) 5 Basophils % Myelocytes % (Manual) 1 H Nucleated Red Blood Cells % 0.0 Neutrophils # Neutrophils # (Manual) 3.4 Band Neutrophils # 1.0 H Absolute Lymphocytes (Manual) 1.6 Lymphocytes # Monocytes # Absolute Monocytes (Manual) 0.6 Eosinophils # Basophils # Myelocytes # 0.0 Nucleated Red Blood Cells # Platelet Estimate NORMAL Polychromasia 3+ Hypochromasia 1+ Anisocytosis 2+ Microcytosis 2+ Sodium Level 133 L Potassium Level 3.6 Chloride Level 91 L Carbon Dioxide Level 37 H Anion Gap 9 Blood Urea Nitrogen 23 H Creatinine 0.85 Glucose Level 88 Calcium Level 8.4 Phosphorus Level 4.6 Magnesium Level 1.6 L Total Bilirubin 0.7 Direct Bilirubin 0.00 Indirect Bilirubin 0.7 Aspartate Amino Transf (AST/SGOT) 27 Alanine Aminotransferase (ALT/SGPT) 43 Alkaline Phosphatase 103 Total Protein 5.4 L Albumin 2.4 L Globulin 3.00 Albumin/Globulin Ratio 0.80 Medications Medications Current Medications Acetaminophen (Tylenol Tab) 650 mg Q4H PRN PO pain/fever; Start 07/24/17 at 07 :00; Status Future Hold Phenol (Chloraseptic Throat [place]) 2 spray Q2H PRN MT SORE THROAT Last administered on 07/29/17 18:10; Admin Dose 2 SPRAY; Start 07/29/17 at 13:00 Diphenhydramine HCl (Benadryl) 25 mg Q6H PRN IV SLEEP Last administered on 08/01 00:19; Admin Dose 25 MG; Start 07/31/17 at 13:00 Chlorpromazine (Thorazine) 10 mg Q6 PRN IM HICCUPS Last administered on 21:21; Admin Dose 10 MG; Start 08/02/17 at 06:00 Loratadine (Claritin) 10 mg DAILY NGT Last administered on 08/20/17 08:20; Admin Dose 10 MG; Start 08/04/17 at 09:00 Hydromorphone HCl 0.5 mg 0.5 mg Q2H PRN IV PAIN Last administered on 10:17; Admin Dose 0.5 MG; Start 08/05/17 at 22:30 Meropenem/Sodium Chloride (Merrem 1 Gm/50 ml (Pmx)) 50 ml @ 100 mls/hr Q12 IVPB Last administered on 08/20/17 08:18; Admin Dose 100 MLS/HR; Start at 21:00 Hydralazine HCl (Apresoline) 10 mg Q6H PRN IV sbp>170 Last administered on 14:18; Admin Dose 10 MG; Start 08/07/17 at 18:00 Lisinopril (Zestril) 20 mg DAILY PO Last administered on 08/20/17 08:19; Admin Dose 20 MG; Start 08/10/17 at 10:30 Acetaminophen (Tylenol Tab) 650 mg Q4H PRN PO PAIN AND OR ELEVATED TEMP Last administered on 08/19/17 21:02; Admin Dose 650 MG; Start 08/10/17 at 10:30 Ondansetron HCl (Zofran Inj) 4 mg Q6H PRN IV NAUSEA AND/OR VOMITING Last administered on 08/20/17 08:24; Admin Dose 4 MG; Start 08/12/17 at 13:00 Amiodarone HCl (Cordarone) 200 mg BID PO Last administered on 08/20/17 08:19 ; Admin Dose 200 MG; Start 08/14/17 at 12:00 Pantoprazole (Protonix Tab) 40 mg DAILY@06 PO Last administered on 08/20/17 05:58; Admin Dose 40 MG; Start 08/16/17 at 06:00 Ketorolac Tromethamine (Toradol) 30 mg Q6H IV Last administered on 08/20/17 05:58; Admin Dose 30 MG; Start 08/17/17 at 12:30; Stop 08/20/17 at 12:29 Metoclopramide HCl 10 mg 10 mg Q6 PRN IV Nausea Last administered on 22:08; Admin Dose 10 MG; Start 08/17/17 at 18:00 Vancomycin HCl 250 ml @ 125 mls/hr Q24H IVPB Last administered on 08/19/17 12:57; Admin Dose 125 MLS/HR; Start 08/19/17 at 13:00 Magnesium Sulfate (Magnesium Sulfate 4 Gm/100 ml) 100 ml @ 25 mls/hr ONCE ONCE IVPB ; Start 08/20/17 at 11:30; Stop 08/20/17 at 15:29; Status RAE RITCHIE Aug 20, 2017 11:25
[2017-08-20] MEDS ORDERED: FLUCONAZOLE 200 MG TAB PO ONE (11:30)
--- NOTE | 2017-08-20 11:45 | PN ---
Date/Time of Note Date/Time of Note DATE: 08/20/17 TIME: 11:35 Assessment/Plan VTE Prophylaxis VTE Prophylaxis Intervention: SCD's Lines/Catheters IV Catheter Type (from Nrs): Mid Line Urinary Cath still in place: Yes Reason Cath still needed: other (indicate) (Diuresis and strict I's and O's) Assessment/Plan Assessment/Plan 51 year old female with: 1. Postop anastomotic leak with sepsis, status post ex lap with drainage of abscesses, drain placement, partial colectomy and colostomy POD#15 Status post Left hemicolectomy for sigmoid adenocarcinoma/mass POD#23 Intraoperative/intraperitoneal cultures positive for E. coli, enterococcus, staph aureus. VITA drain culture sent recently with enterococcus, Enterobacter cloacae and staph aureus. Patient still on appropriate antibiotics based on previous cultures and most recent cultures, leukocytosis improving except for ongoing bandemia. She remains afebrile Follow-up infectious disease recommendations today regarding choices of antibiotics and length of treatment based on current data. Patient on regular diet. Encourage physical therapy and out of bed to chair at least. She will need longterm facility placement at time of discharge 2. Trush, oral candidiasis, Nystatin qid and Diflucan ordered 3. S/p Acute respiratory failure, postoperatively secondary to volume overload. Status post diuresis with Bumex drip and scheduled Bumex. Much improved volume status and off Bumex currently. Appreciate recommendations from nephrology and pulmonary. 4. Atrial fibrillation, chronic, maintaining sinus rhythm, s/p 1 unit pRBC transfusion yesterday. Replete potassium and magnesium today. Keep electrolytes within normal. Continue low-dose amiodarone p.o. Appreciate cardiology recommendations. Anticoagulation discontinued, discussed with cardiology for now will just leave her off anticoagulation for the remainder of her postoperative course. 5. Chronic congestive heart failure, chronic diastolic dysfunction and ejection fraction of 55% on latest outpatient echocardiogram in January 2017 and confirmed to be 50% on this admission. Status post CHF exacerbation, better volume status. Current diuresis with Bumex as needed for now. 6. Acute kidney injury, in setting of sepsis, also had the contrast studies 2. Resolved, renal function back to normal. Leal catheter in place. Adequate urine output, patient off fluids, Bumex as needed, will plan on giving today with packed red blood cell transfusion. Follow-up recommendations from nephrology, Dr. Kiser 7. Anemia, acute on chronic, postop: Hemoglobin was down to 7.5 yesterday, patient apparently had a reaction during blood transfusion when she became febrile with some chills after 1 unit of packed red blood cells. Therefore she only got 1 unit and her hemoglobin is up to 8.8 today. Check iron panel today, IV iron if needed. Continue to monitor hemoglobin daily No acute bleeding noted. Prophylaxis: Off anticoagulation, SCDs, Pepcid for GI prophylaxis. Disposition: Continue volume management, renal function back to normal. Please keep on telemetry for now, patient still in serious condition with high risk to go in and out of atrial fibrillation and or respiratory distress. Follow-up recommendations from general surgery and infectious disease. Subjective 24 Hr Interval Summary Free Text/Dictation Patient feels better this morning, however she does have thrush and complains of odynophagia. Patient did have a reaction during blood transfusion yesterday and was only able to get 1 unit. Otherwise she remained stable this morning. Hemodynamically stable, laboratory data much improved including resolved leukocytosis and improving bandemia. Exam/Review of Systems Vital Signs Vitals Vital Signs Date Time Temp Pulse Resp B/P Pulse Ox O2 Delivery O2 Flow Rate FiO2 08/20/17 11:29 2.0 08/20/17 08:02 81 08/20/17 08:00 Nasal Cannula 08/20/17 07:53 97.7 20 117/77 96 Intake and Output 08/19/17 08/19/17 08/20/17 14:59 22:59 06:59 Intake Total 300 ml 1622 ml 320 ml Output Total 800 ml 460 ml Balance 300 ml 822 ml -140 ml Exam Constitutional: alert, obese, oriented Respiratory: diminished breath sounds (At bases bilaterally), normal air movement Cardiovascular: nl pulses, regular rate and rhythm Gastrointestinal: non-tender, other (Well-functioning colostomy, minimal drainage from right VITA drain serosanguineous, left VITA drain moderate amount of drainage but is becoming more serosanguineous.), soft Musculoskeletal: nl extremities to inspection, swelling (Much less anasarca) Extremities: normal pulses Neurological: [employer] II-XII intact, nl mental status, nl speech, other (Improving weakness generalized) Results Result Diagram: 08/20/1762708/20/17627 Results 24 hrs Laboratory Tests Test 08/20/17 06:06 08/20/17 06:28 Lab Scanned Report BLOOD TRANSFUSION White Blood Count 7.0 Red Blood Count 3.33 L Hemoglobin 8.8 L Hematocrit 27.6 L Mean Corpuscular Volume 82.9 Mean Corpuscular Hemoglobin 26.4 L Mean Corpuscular Hemoglobin Concent 31.9 L Red Cell Distribution Width 21.0 H Platelet Count 346 Mean Platelet Volume 9.7 Neutrophils % Segmented Neutrophils % (Manual) 47 Band Neutrophils % (Manual) 15 H Lymphocytes % Lymphocytes % (Manual) 24 Monocytes % Monocytes % (Manual) 9 Eosinophils % Eosinophils % (Manual) 5 Basophils % Myelocytes % (Manual) 1 H Nucleated Red Blood Cells % 0.0 Neutrophils # Neutrophils # (Manual) 3.4 Band Neutrophils # 1.0 H Absolute Lymphocytes (Manual) 1.6 Lymphocytes # Monocytes # Absolute Monocytes (Manual) 0.6 Eosinophils # Basophils # Myelocytes # 0.0 Nucleated Red Blood Cells # Platelet Estimate NORMAL Polychromasia 3+ Hypochromasia 1+ Anisocytosis 2+ Microcytosis 2+ Sodium Level 133 L Potassium Level 3.6 Chloride Level 91 L Carbon Dioxide Level 37 H Anion Gap 9 Blood Urea Nitrogen 23 H Creatinine 0.85 Glucose Level 88 Calcium Level 8.4 Phosphorus Level 4.6 Magnesium Level 1.6 L Total Bilirubin 0.7 Direct Bilirubin 0.00 Indirect Bilirubin 0.7 Aspartate Amino Transf (AST/SGOT) 27 Alanine Aminotransferase (ALT/SGPT) 43 Alkaline Phosphatase 103 Total Protein 5.4 L Albumin 2.4 L Globulin 3.00 Albumin/Globulin Ratio 0.80 Medications Medications Current Medications Acetaminophen (Tylenol Tab) 650 mg Q4H PRN PO pain/fever; Start 07/24/17 at 07 :00; Status Future Hold Phenol (Chloraseptic Throat Roe) 2 spray Q2H PRN MT SORE THROAT Last administered on 07/29/17 18:10; Admin Dose 2 SPRAY; Start 07/29/17 at 13:00 Diphenhydramine HCl (Benadryl) 25 mg Q6H PRN IV SLEEP Last administered on 08/01 00:19; Admin Dose 25 MG; Start 07/31/17 at 13:00 Chlorpromazine (Thorazine) 10 mg Q6 PRN IM HICCUPS Last administered on 21:21; Admin Dose 10 MG; Start 08/02/17 at 06:00 Loratadine (Claritin) 10 mg DAILY NGT Last administered on 08/20/17 08:20; Admin Dose 10 MG; Start 08/04/17 at 09:00 Hydromorphone HCl 0.5 mg 0.5 mg Q2H PRN IV PAIN Last administered on 10:17; Admin Dose 0.5 MG; Start 08/05/17 at 22:30 Meropenem/Sodium Chloride (Merrem 1 Gm/50 ml (Pmx)) 50 ml @ 100 mls/hr Q12 IVPB Last administered on 08/20/17 08:18; Admin Dose 100 MLS/HR; Start at 21:00 Hydralazine HCl (Apresoline) 10 mg Q6H PRN IV sbp>170 Last administered on 14:18; Admin Dose 10 MG; Start 08/07/17 at 18:00 Lisinopril (Zestril) 20 mg DAILY PO Last administered on 08/20/17 08:19; Admin Dose 20 MG; Start 08/10/17 at 10:30 Acetaminophen (Tylenol Tab) 650 mg Q4H PRN PO PAIN AND OR ELEVATED TEMP Last administered on 08/19/17 21:02; Admin Dose 650 MG; Start 08/10/17 at 10:30 Ondansetron HCl (Zofran Inj) 4 mg Q6H PRN IV NAUSEA AND/OR VOMITING Last administered on 08/20/17 08:24; Admin Dose 4 MG; Start 08/12/17 at 13:00 Amiodarone HCl (Cordarone) 200 mg BID PO Last administered on 08/20/17 08:19 ; Admin Dose 200 MG; Start 08/14/17 at 12:00 Pantoprazole (Protonix Tab) 40 mg DAILY@06 PO Last administered on 08/20/17 05:58; Admin Dose 40 MG; Start 08/16/17 at 06:00 Ketorolac Tromethamine (Toradol) 30 mg Q6H IV Last administered on 08/20/17 05:58; Admin Dose 30 MG; Start 08/17/17 at 12:30; Stop 08/20/17 at 12:29 Metoclopramide HCl 10 mg 10 mg Q6 PRN IV Nausea Last administered on 22:08; Admin Dose 10 MG; Start 08/17/17 at 18:00 Vancomycin HCl 250 ml @ 125 mls/hr Q24H IVPB Last administered on 08/19/17 12:57; Admin Dose 125 MLS/HR; Start 08/19/17 at 13:00 Magnesium Sulfate (Magnesium Sulfate 4 Gm/100 ml) 100 ml @ 25 mls/hr ONCE IVPB ; Start 08/20/17 at 13:00; Stop 08/20/17 at 16:59 Nystatin (Nystatin Susp) 5 ml QID PO ; Start 08/20/17 at 13:00; Status UNV Fluconazole (Diflucan) 200 mg ONCE ONCE PO ; Start 08/20/17 at 11:30; Stop at 11:31; Status UNV Fluconazole (Diflucan) 100 mg DAILY PO ; Start 08/21/17 at 09:00; Status UNV RAE CALVO Aug 20, 2017 11:45
[2017-08-20 12:32] LABS: IRON 25 ug/dl (35-150)
[2017-08-20 12:41] LABS: TOTAL IRON BINDING CAPACITY 198 ug/dl (241-421)
[2017-08-20] MEDS ORDERED: MAGNESIUM SULFATE 4 GM/100 ML 100 ML IVPB SCH (13:00)
--- NOTE | 2017-08-20 13:50 | CONS ---
Date/Time of Note Date/Time of Note DATE: 08/20/17 TIME: 13:48 Assessment/Plan Assessment/Plan Additional Assessment/Plan Paroxysmal atrial fibrillation with rapid ventricular rates, currently sinus Acute decompensated systolic and diastolic congestive heart failure Low normal ejection fraction 50% Colon mass status post colon surgery July 26, 2017 and repeat August 05, 2017 Acute kidney injury, improved Sepsis Vent dependent respiratory failure, status post extubation -Patient remains in sinus rhythm, continue amiodarone as tolerated, would start low-dose Coreg given cardiomyopathy and paroxysmal atrial fibrillation. Ideally maintain potassium above 4.0 and magnesium above 2.0. Diuretics as per our nephrology colleagues. Restart anticoagulation when okay by our surgery colleagues. Consultation Date/Type/Reason Admit Date/Time Jul 24, 2017 at 06:16 Initial Consult Date 07/29/17 Type of Consultation: cv Referring Provider: RAE CALVO 24 HR Interval Summary Free Text/Dictation Shortness of breath is improving, denies palpitations Exam/Review of Systems Vital Signs Vitals Vital Signs Date Time Temp Pulse Resp B/P Pulse Ox O2 Delivery O2 Flow Rate FiO2 08/20/17 12:02 81 08/20/17 11:42 97.7 20 122/72 99 08/20/17 11:29 2.0 08/20/17 08:00 Nasal Cannula Intake and Output 08/19/17 08/19/17 08/20/17 14:59 22:59 06:59 Intake Total 300 ml 1622 ml 320 ml Output Total 800 ml 460 ml Balance 300 ml 822 ml -140 ml Exam No apparent distress, eating lunch Constitutional: alert, oriented Head: normocephalic Respiratory: other (Coarse breath sounds bilaterally, no wheezing) Cardiovascular: other (S1-S2 heard), regular rate and rhythm Gastrointestinal: bowel sounds, soft Extremities: edema Results Result Diagram: 08/20/1728 08/20/1728 Results 24 hrs Laboratory Tests Test 08/20/17 06:06 08/20/17 06:26 08/20/17 06:28 Lab Scanned Report BLOOD TRANSFUSION Iron Level 25 L Total Iron Binding Capacity 198 L Percent Iron Saturation 13 L Ferritin 265.0 H White Blood Count 7.0 Red Blood Count 3.33 L Hemoglobin 8.8 L Hematocrit 27.6 L Mean Corpuscular Volume 82.9 Mean Corpuscular Hemoglobin 26.4 L Mean Corpuscular Hemoglobin Concent 31.9 L Red Cell Distribution Width 21.0 H Platelet Count 346 Mean Platelet Volume 9.7 Neutrophils % Segmented Neutrophils % (Manual) 47 Band Neutrophils % (Manual) 15 H Lymphocytes % Lymphocytes % (Manual) 24 Monocytes % Monocytes % (Manual) 9 Eosinophils % Eosinophils % (Manual) 5 Basophils % Myelocytes % (Manual) 1 H Nucleated Red Blood Cells % 0.0 Neutrophils # Neutrophils # (Manual) 3.4 Band Neutrophils # 1.0 H Absolute Lymphocytes (Manual) 1.6 Lymphocytes # Monocytes # Absolute Monocytes (Manual) 0.6 Eosinophils # Basophils # Myelocytes # 0.0 Nucleated Red Blood Cells # Platelet Estimate NORMAL Polychromasia 3+ Hypochromasia 1+ Anisocytosis 2+ Microcytosis 2+ Sodium Level 133 L Potassium Level 3.6 Chloride Level 91 L Carbon Dioxide Level 37 H Anion Gap 9 Blood Urea Nitrogen 23 H Creatinine 0.85 Glucose Level 88 Calcium Level 8.4 Phosphorus Level 4.6 Magnesium Level 1.6 L Total Bilirubin 0.7 Direct Bilirubin 0.00 Indirect Bilirubin 0.7 Aspartate Amino Transf (AST/SGOT) 27 Alanine Aminotransferase (ALT/SGPT) 43 Alkaline Phosphatase 103 Total Protein 5.4 L Albumin 2.4 L Globulin 3.00 Albumin/Globulin Ratio 0.80 Medications Medications Current Medications Acetaminophen (Tylenol Tab) 650 mg Q4H PRN PO pain/fever; Start 07/24/17 at 07 :00; Status Future Hold Phenol (Chloraseptic Throat [place]) 2 spray Q2H PRN MT SORE THROAT Last administered on 07/29/17 18:10; Admin Dose 2 SPRAY; Start 07/29/17 at 13:00 Diphenhydramine HCl (Benadryl) 25 mg Q6H PRN IV SLEEP Last administered on 08/01 00:19; Admin Dose 25 MG; Start 07/31/17 at 13:00 Chlorpromazine (Thorazine) 10 mg Q6 PRN IM HICCUPS Last administered on 21:21; Admin Dose 10 MG; Start 08/02/17 at 06:00 Loratadine (Claritin) 10 mg DAILY NGT Last administered on 08/20/17 08:20; Admin Dose 10 MG; Start 08/04/17 at 09:00 Hydromorphone HCl 0.5 mg 0.5 mg Q2H PRN IV PAIN Last administered on 10:17; Admin Dose 0.5 MG; Start 08/05/17 at 22:30 Meropenem/Sodium Chloride (Merrem 1 Gm/50 ml (Pmx)) 50 ml @ 100 mls/hr Q12 IVPB Last administered on 08/20/17 08:18; Admin Dose 100 MLS/HR; Start at 21:00 Hydralazine HCl (Apresoline) 10 mg Q6H PRN IV sbp>170 Last administered on 14:18; Admin Dose 10 MG; Start 08/07/17 at 18:00 Lisinopril (Zestril) 20 mg DAILY PO Last administered on 08/20/17 08:19; Admin Dose 20 MG; Start 08/10/17 at 10:30 Acetaminophen (Tylenol Tab) 650 mg Q4H PRN PO PAIN AND OR ELEVATED TEMP Last administered on 08/19/17 21:02; Admin Dose 650 MG; Start 08/10/17 at 10:30 Ondansetron HCl (Zofran Inj) 4 mg Q6H PRN IV NAUSEA AND/OR VOMITING Last administered on 08/20/17 08:24; Admin Dose 4 MG; Start 08/12/17 at 13:00 Amiodarone HCl (Cordarone) 200 mg BID PO Last administered on 08/20/17 08:19 ; Admin Dose 200 MG; Start 08/14/17 at 12:00 Pantoprazole (Protonix Tab) 40 mg DAILY@06 PO Last administered on 08/20/17 05:58; Admin Dose 40 MG; Start 08/16/17 at 06:00 Metoclopramide HCl 10 mg 10 mg Q6 PRN IV Nausea Last administered on 22:08; Admin Dose 10 MG; Start 08/17/17 at 18:00 Vancomycin HCl 250 ml @ 125 mls/hr Q24H IVPB Last administered on 08/19/17 12:57; Admin Dose 125 MLS/HR; Start 08/19/17 at 13:00 Magnesium Sulfate (Magnesium Sulfate 4 Gm/100 ml) 100 ml @ 25 mls/hr ONCE IVPB ; Start 08/20/17 at 13:00; Stop 08/20/17 at 16:59 Nystatin (Nystatin Susp) 5 ml QID PO ; Start 08/20/17 at 13:00 Fluconazole (Diflucan) 100 mg DAILY PO ; Start 08/21/17 at 09:00 Fercho Mojica DO Aug 20, 2017 13:50
--- NOTE | 2017-08-20 14:27 | CONS ---
Date/Time of Note Date/Time of Note DATE: 08/20/17 TIME: 14:25 Assessment/Plan Assessment/Plan Chief Complaint/Hosp Course SUBJECTIVE: No acute changes. Alert, up in bed with PT, looks comfortable. No fevers. MICROBIOLOGY: VITA fluid growing Enterobacter cloacae, MRSA and Enterococcus species. ANTIMICROBIALS: The patient remains on vancomycin and meropenem. INDWELLINGS: Leal, VITA, colostomy. PHYSICAL EXAMINATION: GENERAL: Obese, well-developed, ill-appearing, middle-aged woman who is in no distress. HEENT: Head atraumatic, normocephalic. Sclerae anicteric. Buccal mucosa dry. NECK: Supple. CHEST: Rise symmetrical. Breath sounds diminished to bases. HEART: S1, S2. ABDOMEN: Soft, bowel tones present. EXTREMITIES: Without cyanosis. ASSESSMENT: 1. Systemic inflammatory response syndrome secondary to intra-abdominal pathology with Den-Klein fluid culture growing multiple organisms, final identification pending, the patient is on appropriate antibiotics. 2. Status post septic shock. 3. Status post respiratory failure. 4. Colon cancer, status post resection complicated by anastomotic leak, status post exploratory laparotomy, drainage of abscesses and partial colectomy with colostomy on 08/05/2017. 5. Obesity. 6. Status post thoracentesis for left pleural effusion. 7. Oral candidiasis PLAN: The patient remains stable. Continue abx, Diflucan and Nystatin for oral thrush, PT, f/u surgical rec-s DW pt/staff Problems: Consultation Date/Type/Reason Admit Date/Time Jul 24, 2017 at 06:16 Initial Consult Date 08/05/17 Type of Consultation: ID Referring Provider: RAE CALVO Exam/Review of Systems Vital Signs Vitals Vital Signs Date Time Temp Pulse Resp B/P Pulse Ox O2 Delivery O2 Flow Rate FiO2 08/20/17 12:02 81 08/20/17 11:42 97.7 20 122/72 99 08/20/17 11:29 2.0 08/20/17 08:00 Nasal Cannula Intake and Output 08/19/17 08/19/17 08/20/17 15:00 23:00 07:00 Intake Total 300 ml 1622 ml 320 ml Output Total 800 ml 460 ml Balance 300 ml 822 ml -140 ml Results Result Diagram: 08/20/1728 11/21/17 0628 Results 24 hrs Laboratory Tests Test 08/20/17 06:06 08/20/17 06:26 08/20/17 06:28 Lab Scanned Report BLOOD TRANSFUSION Iron Level 25 L Total Iron Binding Capacity 198 L Percent Iron Saturation 13 L Ferritin 265.0 H White Blood Count 7.0 Red Blood Count 3.33 L Hemoglobin 8.8 L Hematocrit 27.6 L Mean Corpuscular Volume 82.9 Mean Corpuscular Hemoglobin 26.4 L Mean Corpuscular Hemoglobin Concent 31.9 L Red Cell Distribution Width 21.0 H Platelet Count 346 Mean Platelet Volume 9.7 Neutrophils % Segmented Neutrophils % (Manual) 47 Band Neutrophils % (Manual) 15 H Lymphocytes % Lymphocytes % (Manual) 24 Monocytes % Monocytes % (Manual) 9 Eosinophils % Eosinophils % (Manual) 5 Basophils % Myelocytes % (Manual) 1 H Nucleated Red Blood Cells % 0.0 Neutrophils # Neutrophils # (Manual) 3.4 Band Neutrophils # 1.0 H Absolute Lymphocytes (Manual) 1.6 Lymphocytes # Monocytes # Absolute Monocytes (Manual) 0.6 Eosinophils # Basophils # Myelocytes # 0.0 Nucleated Red Blood Cells # Platelet Estimate NORMAL Polychromasia 3+ Hypochromasia 1+ Anisocytosis 2+ Microcytosis 2+ Sodium Level 133 L Potassium Level 3.6 Chloride Level 91 L Carbon Dioxide Level 37 H Anion Gap 9 Blood Urea Nitrogen 23 H Creatinine 0.85 Glucose Level 88 Calcium Level 8.4 Phosphorus Level 4.6 Magnesium Level 1.6 L Total Bilirubin 0.7 Direct Bilirubin 0.00 Indirect Bilirubin 0.7 Aspartate Amino Transf (AST/SGOT) 27 Alanine Aminotransferase (ALT/SGPT) 43 Alkaline Phosphatase 103 Total Protein 5.4 L Albumin 2.4 L Globulin 3.00 Albumin/Globulin Ratio 0.80 Medications Medications Current Medications Acetaminophen (Tylenol Tab) 650 mg Q4H PRN PO pain/fever; Start 07/24/17 at 07 :00; Status Future Hold Phenol (Chloraseptic Throat [place]) 2 spray Q2H PRN MT SORE THROAT Last administered on 07/29/17 18:10; Admin Dose 2 SPRAY; Start 07/29/17 at 13:00 Diphenhydramine HCl (Benadryl) 25 mg Q6H PRN IV SLEEP Last administered on 08/01 00:19; Admin Dose 25 MG; Start 07/31/17 at 13:00 Chlorpromazine (Thorazine) 10 mg Q6 PRN IM HICCUPS Last administered on 21:21; Admin Dose 10 MG; Start 08/02/17 at 06:00 Loratadine (Claritin) 10 mg DAILY NGT Last administered on 08/20/17 08:20; Admin Dose 10 MG; Start 08/04/17 at 09:00 Hydromorphone HCl 0.5 mg 0.5 mg Q2H PRN IV PAIN Last administered on 10:17; Admin Dose 0.5 MG; Start 08/05/17 at 22:30 Meropenem/Sodium Chloride (Merrem 1 Gm/50 ml (Pmx)) 50 ml @ 100 mls/hr Q12 IVPB Last administered on 08/20/17 08:18; Admin Dose 100 MLS/HR; Start at 21:00 Hydralazine HCl (Apresoline) 10 mg Q6H PRN IV sbp>170 Last administered on 14:18; Admin Dose 10 MG; Start 08/07/17 at 18:00 Lisinopril (Zestril) 20 mg DAILY PO Last administered on 08/20/17 08:19; Admin Dose 20 MG; Start 08/10/17 at 10:30 Acetaminophen (Tylenol Tab) 650 mg Q4H PRN PO PAIN AND OR ELEVATED TEMP Last administered on 08/19/17 21:02; Admin Dose 650 MG; Start 08/10/17 at 10:30 Ondansetron HCl (Zofran Inj) 4 mg Q6H PRN IV NAUSEA AND/OR VOMITING Last administered on 08/20/17 08:24; Admin Dose 4 MG; Start 08/12/17 at 13:00 Amiodarone HCl (Cordarone) 200 mg BID PO Last administered on 08/20/17 08:19 ; Admin Dose 200 MG; Start 08/14/17 at 12:00 Pantoprazole (Protonix Tab) 40 mg DAILY@06 PO Last administered on 08/20/17 05:58; Admin Dose 40 MG; Start 08/16/17 at 06:00 Metoclopramide HCl 10 mg 10 mg Q6 PRN IV Nausea Last administered on 22:08; Admin Dose 10 MG; Start 08/17/17 at 18:00 Vancomycin HCl 250 ml @ 125 mls/hr Q24H IVPB Last administered on 08/19/17 12:57; Admin Dose 125 MLS/HR; Start 08/19/17 at 13:00 Magnesium Sulfate (Magnesium Sulfate 4 Gm/100 ml) 100 ml @ 25 mls/hr ONCE IVPB ; Start 08/20/17 at 13:00; Stop 08/20/17 at 16:59 Nystatin (Nystatin Susp) 5 ml QID PO ; Start 08/20/17 at 13:00 Fluconazole (Diflucan) 100 mg DAILY PO ; Start 08/21/17 at 09:00 Carvedilol (Coreg) 3.125 mg BID PO ; Start 08/20/17 at 21:00 YG TARANGO NP Aug 20, 2017 14:27
[2017-08-20] MEDS: NYSTATIN SUSP 5 ML CUP PO SCH ×3 (14:39→20:26)
[2017-08-20] MEDS: VANCOMYCIN 1 GM in NS 250 ML IVPB SCH (14:40)
[2017-08-20] MEDS: LEVALBUTEROL (NEB) 0.63 MG/3 ML AMP HHN PRN (16:52)
--- NOTE | 2017-08-20 17:10 | CONS ---
Date/Time of Note Date/Time of Note DATE: 08/20/17 TIME: 17:08 Assessment/Plan Assessment/Plan Additional Assessment/Plan 1. Oliguric EJ due to ATN from Shock- Multifactorial septic from peritonitis + Hemorrhagic- Improving, making good urine 2. Acute hyperkalemia due to EJ- Resolved 3. Metabolic acidosis with lactic acidosis- Improved much better, 4. acute resp failure, possible Asp PNA vs HCAP - pt remained on ventilator post operatively ,s/p US throacentesis 400 cc removed from left chest on - s/p extubation on 08/09/17 5. Septic shock requiring pressors, now off levophed 6. Status post Left hemicolectomy for sigmoid adenocarcinoma/mass POD#7, s/p total of 4 units pRBC since admission. - again pt underwent Exploratory laparotomy with intra- abdominal abscess drainage, Placement of percutaneous Maurisio drains #19 x2. , Partial colectomy.Formation of end colostomy with Corona's pouch. on 08/05/17 7. Atrial fibrillation 8. Chronic diastolic heart failure with EF 55% 9. Hypocalcemia with hypoalbuminemia 10. Hypernatremia - resolved with D5W Plan: - s/p Bumex gtt with IV albumin 08/13/17- HCo3 improving,Cr normal, Mag low, already replaced for today Monitor electrolytes and Replace as needed will continue to follow up along with other subspecialist Consultation Date/Type/Reason Admit Date/Time Jul 24, 2017 at 06:16 Initial Consult Date 08/05/17 Type of Consultation: NEPHROLOGY Referring Provider: RAE CALVO 24 HR Interval Summary Free Text/Dictation Cr normal, HCo3 improving, Mag low, pt makin good urine output Exam/Review of Systems Vital Signs Vitals Vital Signs Date Time Temp Pulse Resp B/P Pulse Ox O2 Delivery O2 Flow Rate FiO2 08/20/17 16:52 88 18 98 Nasal Cannula 2.0 08/20/17 16:11 99.2 143/74 Intake and Output 08/19/17 08/19/17 08/20/17 14:59 22:59 06:59 Intake Total 300 ml 1622 ml 320 ml Output Total 800 ml 460 ml Balance 300 ml 822 ml -140 ml Exam GENERAL: alert, awake, No acute distress HEENT: [place]ANDRAK[place], EOMI CHEST: Rise symmetrical. Breath sounds diminished to bases. HEART: S1, S2. ABDOMEN: Soft, bowel tones present. back swelling + EXTREMITIES: With bilateral edema lower extremities.1+ Results Result Diagram: 08/20/1762708/20/17627 Results 24 hrs Laboratory Tests Test 08/20/17 06:06 08/20/17 06:26 08/20/17 06:28 Lab Scanned Report BLOOD TRANSFUSION Iron Level 25 L Total Iron Binding Capacity 198 L Percent Iron Saturation 13 L Ferritin 265.0 H White Blood Count 7.0 Red Blood Count 3.33 L Hemoglobin 8.8 L Hematocrit 27.6 L Mean Corpuscular Volume 82.9 Mean Corpuscular Hemoglobin 26.4 L Mean Corpuscular Hemoglobin Concent 31.9 L Red Cell Distribution Width 21.0 H Platelet Count 346 Mean Platelet Volume 9.7 Neutrophils % Segmented Neutrophils % (Manual) 47 Band Neutrophils % (Manual) 15 H Lymphocytes % Lymphocytes % (Manual) 24 Monocytes % Monocytes % (Manual) 9 Eosinophils % Eosinophils % (Manual) 5 Basophils % Myelocytes % (Manual) 1 H Nucleated Red Blood Cells % 0.0 Neutrophils # Neutrophils # (Manual) 3.4 Band Neutrophils # 1.0 H Absolute Lymphocytes (Manual) 1.6 Lymphocytes # Monocytes # Absolute Monocytes (Manual) 0.6 Eosinophils # Basophils # Myelocytes # 0.0 Nucleated Red Blood Cells # Platelet Estimate NORMAL Polychromasia 3+ Hypochromasia 1+ Anisocytosis 2+ Microcytosis 2+ Sodium Level 133 L Potassium Level 3.6 Chloride Level 91 L Carbon Dioxide Level 37 H Anion Gap 9 Blood Urea Nitrogen 23 H Creatinine 0.85 Glucose Level 88 Calcium Level 8.4 Phosphorus Level 4.6 Magnesium Level 1.6 L Total Bilirubin 0.7 Direct Bilirubin 0.00 Indirect Bilirubin 0.7 Aspartate Amino Transf (AST/SGOT) 27 Alanine Aminotransferase (ALT/SGPT) 43 Alkaline Phosphatase 103 Total Protein 5.4 L Albumin 2.4 L Globulin 3.00 Albumin/Globulin Ratio 0.80 Medications Medications Current Medications Acetaminophen (Tylenol Tab) 650 mg Q4H PRN PO pain/fever; Start 07/24/17 at 07 :00; Status Future Hold Phenol (Chloraseptic Throat [place]) 2 spray Q2H PRN MT SORE THROAT Last administered on 07/29/17t 18:10; Admin Dose 2 SPRAY; Start 07/29/17 at 13:00 Diphenhydramine HCl (Benadryl) 25 mg Q6H PRN IV SLEEP Last administered on 08/01 00:19; Admin Dose 25 MG; Start 07/31/17 at 13:00 Chlorpromazine (Thorazine) 10 mg Q6 PRN IM HICCUPS Last administered on 21:21; Admin Dose 10 MG; Start 08/02/17 at 06:00 Loratadine (Claritin) 10 mg DAILY NGT Last administered on 08/20/17 08:20; Admin Dose 10 MG; Start 08/04/17 at 09:00 Hydromorphone HCl 0.5 mg 0.5 mg Q2H PRN IV PAIN Last administered on 14:51; Admin Dose 0.5 MG; Start 08/05/17 at 22:30 Meropenem/Sodium Chloride (Merrem 1 Gm/50 ml (Pmx)) 50 ml @ 100 mls/hr Q12 IVPB Last administered on 08/20/17 08:18; Admin Dose 100 MLS/HR; Start at 21:00 Hydralazine HCl (Apresoline) 10 mg Q6H PRN IV sbp>170 Last administered on 14:18; Admin Dose 10 MG; Start 08/07/17 at 18:00 Lisinopril (Zestril) 20 mg DAILY PO Last administered on 08/20/17 08:19; Admin Dose 20 MG; Start 08/10/17 at 10:30 Acetaminophen (Tylenol Tab) 650 mg Q4H PRN PO PAIN AND OR ELEVATED TEMP Last administered on 08/19/17 21:02; Admin Dose 650 MG; Start 08/10/17 at 10:30 Ondansetron HCl (Zofran Inj) 4 mg Q6H PRN IV NAUSEA AND/OR VOMITING Last administered on 08/20/17 14:50; Admin Dose 4 MG; Start 08/12/17 at 13:00 Amiodarone HCl (Cordarone) 200 mg BID PO Last administered on 08/20/17 08:19 ; Admin Dose 200 MG; Start 08/14/17 at 12:00 Pantoprazole (Protonix Tab) 40 mg DAILY@06 PO Last administered on 08/20/17 05:58; Admin Dose 40 MG; Start 08/16/17 at 06:00 Metoclopramide HCl 10 mg 10 mg Q6 PRN IV Nausea Last administered on 22:08; Admin Dose 10 MG; Start 08/17/17 at 18:00 Vancomycin HCl (Vancocin) 250 ml @ 125 mls/hr Q24H IVPB Last administered on 08/20/17 14:40; Admin Dose 125 MLS/HR; Start 08/19/17 at 13:00 Nystatin (Nystatin Susp) 5 ml QID PO Last administered on 08/20/17 14:39; Admin Dose 5 ML; Start 08/20/17 at 13:00 Fluconazole (Diflucan) 100 mg DAILY PO ; Start 08/21/17 at 09:00 Carvedilol (Coreg) 3.125 mg BID PO ; Start 08/20/17 at 21:00 MEKA ROBERTSON MD Aug 20, 2017 17:10
[2017-08-20 18:34] LABS: POST-TRANSFUSION BILIRUBIN 0.6 mg/dl; PRETRANSFUSION BILIRUBIN 0.3 mg/dl
[2017-08-20] MEDS: METOCLOPRAMIDE 10 MG INJ IV PRN (18:37)
[2017-08-21] VITALS (12 sets, daily range): BP systolic 124–136; BP diastolic 66–80; PULSE 79–95; RESP 18–22
[2017-08-21] MEDS: HYDROmorphONE 0.5 MG/0.5 ML SYG IV PRN ×4 (01:48→11:02)
[2017-08-21] MEDS: PANTOPRAZOLE (EC) 40 MG TAB PO SCH (06:12)
[2017-08-21 06:46] LABS: BASOPHILS % 0.3 % (0.0-2.0); EOSINOPHILS # 0.4 10^3/ul (0.0-0.5); EOSINOPHILS % 5.3 % (0.0-7.0); HEMOGLOBIN 8.3 g/dl (12.0-16.0); LYMPHOCYTES # 1.1 10^3/ul (0.8-2.9); LYMPHOCYTES % 15.5 % (15.0-51.0); MEAN CORPUSCULAR HEMOGLOBIN 26.8 pg (29.0-33.0); MEAN CORPUSCULAR HGB CONC 31.9 g/dl (32.0-37.0); MEAN CORPUSCULAR VOLUME 83.9 fl (82.0-101.0); MEAN PLATELET VOLUME 9.5 fl (7.4-10.4); MONOCYTE # 0.7 10^3/ul (0.3-0.9); MONOCYTES % 10.5 % (0.0-11.0); NEUTROPHIL # 4.5 10^3/ul (1.6-7.5); NEUTROPHILS % 65.8 % (39.0-77.0); PLATELET COUNT 309 10^3/UL (140-415); RED CELL DISTRIBUTION WIDTH 21.2 % (11.5-14.5); WHITE BLOOD COUNT 6.8 10^3/ul (4.8-10.8)
[2017-08-21 07:14] LABS: CALCIUM 8.3 mg/dl (8.4-10.2); CREATININE 0.81 mg/dl (0.44-1.00); POTASSIUM 4.4 mmol/L (3.5-5.1)
[2017-08-21 07:19] LABS: MAGNESIUM 2.2 mg/dl (1.7-2.5); PHOSPHORUS 4.3 mg/dl (2.5-4.9)
[2017-08-21] MEDS: NYSTATIN SUSP 5 ML CUP PO SCH ×4 (08:14→20:08)
[2017-08-21] MEDS: AMIODARONE 200 MG TAB PO SCH ×2 (08:15→20:04)
[2017-08-21] MEDS: LORATADINE 10 MG TAB NGT SCH (08:16)
[2017-08-21] MEDS: FLUCONAZOLE 100 MG TAB PO SCH (08:16)
[2017-08-21] MEDS: LISINOPRIL 20 MG TAB PO SCH (08:16)
[2017-08-21] MEDS: MEROPENEM 1 GM/50ML(PMX) 50 ML IVPB SCH ×2 (08:18→20:05)
[2017-08-21] MEDS: ONDANSETRON 4 MG INJ IV PRN ×2 (08:49→16:34)
--- NOTE | 2017-08-21 10:42 | CONS ---
Date/Time of Note Date/Time of Note DATE: 08/21/17 TIME: 10:41 Assessment/Plan Assessment/Plan Additional Assessment/Plan Paroxysmal atrial fibrillation, currently sinus Acute decompensated systolic and diastolic congestive heart failure Low normal ejection fraction 50% Colon mass status post colon surgery July 26, 2017 and repeat August 05, 2017 Acute kidney injury, improved Sepsis Vent dependent respiratory failure, status post extubation -Patient remains in sinus rhythm, continue amiodarone as tolerated, increase dose of Coreg as blood pressure tolerates. Ideally maintain potassium above 4.0 and magnesium above 2.0. Diuretics as per our nephrology colleagues. Restart anticoagulation when okay by our surgery colleagues. Consultation Date/Type/Reason Admit Date/Time Jul 24, 2017 at 06:16 Initial Consult Date 07/29/17 Type of Consultation: cv Referring Provider: RAE CALVO 24 HR Interval Summary Free Text/Dictation Shortness of breath better today. Denies palpitations Exam/Review of Systems Vital Signs Vitals Vital Signs Date Time Temp Pulse Resp B/P Pulse Ox O2 Delivery O2 Flow Rate FiO2 08/21/17 08:02 83 08/21/17 07:20 98.8 22 131/70 97 08/21/17 06:20 2.0 08/20/17 20:00 Nasal Cannula Intake and Output 08/20/17 08/20/17 08/21/17 14:59 22:59 06:59 Intake Total 1500 ml 800 ml Output Total 600 ml 700 ml Balance 900 ml 100 ml Exam No apparent distress Constitutional: alert, obese, oriented Head: normocephalic Respiratory: other (Coarse breath sounds bilaterally, no wheezing) Cardiovascular: other (S1-S2 heard), regular rate and rhythm Gastrointestinal: bowel sounds, soft Extremities: edema Results Result Diagram: 08/21/1718 08/21/1718 Results 24 hrs Laboratory Tests Test 08/21/17 06:18 White Blood Count 6.8 Red Blood Count 3.10 L Hemoglobin 8.3 L Hematocrit 26.0 L Mean Corpuscular Volume 83.9 Mean Corpuscular Hemoglobin 26.8 L Mean Corpuscular Hemoglobin Concent 31.9 L Red Cell Distribution Width 21.2 H Platelet Count 309 Mean Platelet Volume 9.5 Neutrophils % 65.8 Lymphocytes % 15.5 Monocytes % 10.5 Eosinophils % 5.3 Basophils % 0.3 Nucleated Red Blood Cells % 0.0 Neutrophils # 4.5 Lymphocytes # 1.1 Monocytes # 0.7 Eosinophils # 0.4 Basophils # 0.0 Nucleated Red Blood Cells # 0.0 Sodium Level 132 L Potassium Level 4.4 Chloride Level 92 L Carbon Dioxide Level 34 H Anion Gap 10 Blood Urea Nitrogen 23 H Creatinine 0.81 Glucose Level 124 Calcium Level 8.3 L Phosphorus Level 4.3 Magnesium Level 2.2 Medications Medications Current Medications Acetaminophen (Tylenol Tab) 650 mg Q4H PRN PO pain/fever; Start 07/24/17 at 07 :00; Status Future Hold Phenol (Chloraseptic Throat [place]) 2 spray Q2H PRN [place] SORE THROAT Last administered on 07/29/17 18:10; Admin Dose 2 SPRAY; Start 07/29/17 at 13:00 Diphenhydramine HCl (Benadryl) 25 mg Q6H PRN IV SLEEP Last administered on 08/01 00:19; Admin Dose 25 MG; Start 07/31/17 at 13:00 Chlorpromazine (Thorazine) 10 mg Q6 PRN IM HICCUPS Last administered on 21:21; Admin Dose 10 MG; Start 08/02/17 at 06:00 Loratadine (Claritin) 10 mg DAILY NGT Last administered on 08/21/17 08:16; Admin Dose 10 MG; Start 08/04/17 at 09:00 Hydromorphone HCl 0.5 mg 0.5 mg Q2H PRN IV PAIN Last administered on 08:09; Admin Dose 0.5 MG; Start 08/05/17 at 22:30 Meropenem/Sodium Chloride (Merrem 1 Gm/50 ml (Pmx)) 50 ml @ 100 mls/hr Q12 IVPB Last administered on 08/21/17 08:18; Admin Dose 100 MLS/HR; Start at 21:00 Hydralazine HCl (Apresoline) 10 mg Q6H PRN IV sbp>170 Last administered on 14:18; Admin Dose 10 MG; Start 08/07/17 at 18:00 Lisinopril (Zestril) 20 mg DAILY PO Last administered on 08/21/17 08:16; Admin Dose 20 MG; Start 08/10/17 at 10:30 Acetaminophen (Tylenol Tab) 650 mg Q4H PRN PO PAIN AND OR ELEVATED TEMP Last administered on 08/19/17 21:02; Admin Dose 650 MG; Start 08/10/17 at 10:30 Ondansetron HCl (Zofran Inj) 4 mg Q6H PRN IV NAUSEA AND/OR VOMITING Last administered on 08/21/17 08:49; Admin Dose 4 MG; Start 08/12/17 at 13:00 Amiodarone HCl (Cordarone) 200 mg BID PO Last administered on 08/21/17 08:15 ; Admin Dose 200 MG; Start 08/14/17 at 12:00 Pantoprazole (Protonix Tab) 40 mg DAILY@06 PO Last administered on 08/21/17 06:12; Admin Dose 40 MG; Start 08/16/17 at 06:00 Metoclopramide HCl 10 mg 10 mg Q6 PRN IV Nausea Last administered on 18:37; Admin Dose 10 MG; Start 08/17/17 at 18:00 Vancomycin HCl (Vancocin) 250 ml @ 125 mls/hr Q24H IVPB Last administered on 08/20/17 14:40; Admin Dose 125 MLS/HR; Start 08/19/17 at 13:00 Nystatin (Nystatin Susp) 5 ml QID PO Last administered on 08/21/17 08:14; Admin Dose 5 ML; Start 08/20/17 at 13:00 Fluconazole (Diflucan) 100 mg DAILY PO Last administered on 08/21/17 08:16; Admin Dose 100 MG; Start 08/21/17 at 09:00 Carvedilol (Coreg) 3.125 mg BID PO Last administered on 08/21/17 08:15; Admin Dose 3.125 MG; Start 08/20/17 at 21:00 Fercho Mojica DO Aug 21, 2017 10:42
--- NOTE | 2017-08-21 11:14 | PN ---
Date/Time of Note Date/Time of Note DATE: 08/21/17 TIME: 10:51 Assessment/Plan VTE Prophylaxis VTE Prophylaxis Intervention: SCD's Lines/Catheters IV Catheter Type (from Nrs): Mid Line Urinary Cath still in place: Yes Reason Cath still needed: other (indicate) (Strict I's and O's, diuresis) Assessment/Plan Assessment/Plan 51 year old female with: 1. Postop anastomotic leak with sepsis, status post ex lap with drainage of abscesses, drain placement, partial colectomy and colostomy POD#15 Status post Left hemicolectomy for sigmoid adenocarcinoma/mass POD#23 Intraoperative/intraperitoneal cultures positive for E. coli, enterococcus, staph aureus. VITA drain culture sent recently with enterococcus, Enterobacter cloacae and staph aureus. Patient still on appropriate antibiotics based on previous cultures and most recent cultures, leukocytosis improving except for ongoing bandemia. She remains afebrile Follow-up infectious disease recommendations today regarding choices of antibiotics and length of treatment based on current data. Per latest discussion with infectious disease patient may need a prolonged course due to deep intra-abdominal infection postoperatively/abscesses. This would mean the patient may need to complete up to 4 weeks of antibiotics, she has been on antibiotics for the past couple of weeks already. Midline in place Patient on regular diet. Encourage physical therapy and out of bed to chair at least. Will change Dilaudid to p.o. today for pain control. She will need longterm facility placement at time of discharge 2. Trush, oral candidiasis, slowly improving, continue nystatin qid and Diflucan p.o. 3. S/p Acute respiratory failure, postoperatively secondary to volume overload. Status post diuresis with Bumex drip and scheduled Bumex. Much improved volume status and off Bumex currently. Appreciate recommendations from nephrology and pulmonary. 4. Atrial fibrillation, chronic, maintaining sinus rhythm, s/p 1 unit pRBC transfusion yesterday. Replete potassium and magnesium today. Keep electrolytes within normal. Continue low-dose amiodarone p.o. also back on carvedilol Appreciate cardiology recommendations. Anticoagulation discontinued for now, per cardiology okay to resume once okay per general surgery. 5. Chronic congestive heart failure, chronic diastolic dysfunction and ejection fraction of 55% on latest outpatient echocardiogram in January 2017 and confirmed to be 50% on this admission. Status post CHF exacerbation, better volume status. Current diuresis with Bumex as needed for now. 6. Acute kidney injury, in setting of sepsis, also had the contrast studies 2. Resolved, renal function back to normal. Leal catheter in place. Adequate urine output, patient off fluids, Bumex as needed, will plan on giving today with packed red blood cell transfusion. Follow-up recommendations from nephrology, Dr. Kiser 7. Anemia, acute on chronic, postop: Hemoglobin was down to 7.5 yesterday, patient apparently had a reaction during blood transfusion when she became febrile with some chills after 1 unit of packed red blood cells. Therefore she only got 1 unit and her hemoglobin is up to 8.8 today. Patient iron deficient, will start Ferrlecit IV daily 3 days. Continue to monitor hemoglobin daily No acute bleeding noted. Prophylaxis: Off anticoagulation, SCDs, Pepcid for GI prophylaxis. Disposition: Continue volume management, renal function back to normal. Please keep on telemetry for now, patient still in serious condition with high risk to go in and out of atrial fibrillation and or respiratory distress. Follow-up recommendations from general surgery and infectious disease. Subjective 24 Hr Interval Summary Free Text/Dictation Patient doing even better today, she remains in sinus rhythm, on low-dose amiodarone and the carvedilol also added back. She is getting spot doses of Bumex for diuresis as needed, her volume status is much better today. Last Bumex dose was 2 days ago. Still using the Dilaudid IV for pain control, agrees to switch to p.o. trial. Tolerating p.o. Abdomen is soft. Left VITA drain with large amount of drainage still. Exam/Review of Systems Vital Signs Vitals Vital Signs Date Time Temp Pulse Resp B/P Pulse Ox O2 Delivery O2 Flow Rate FiO2 08/21/17 08:02 83 08/21/17 07:20 98.8 22 131/70 97 08/21/17 06:20 2.0 08/20/17 20:00 Nasal Cannula Intake and Output 08/20/17 08/20/17 08/21/17 15:00 23:00 07:00 Intake Total 1500 ml 800 ml Output Total 600 ml 700 ml Balance 900 ml 100 ml Exam Constitutional: alert, obese, oriented, well developed Respiratory: diminished breath sounds (At bases bilaterally), normal air movement Cardiovascular: nl pulses, other (Remains in sinus rhythm), regular rate and rhythm Gastrointestinal: soft, tender (Diffuse tenderness improving, right VITA drain minimal output, left VITA drain large amount of output. Serosanguineous but with significant yellow deposits) Musculoskeletal: nl extremities to inspection Extremities: normal pulses, other (Much improved anasarca. With +2 edema lower extremities bilaterally) Neurological: OUTPATIENT PROGRAM COORDINATOR II-XII intact, nl mental status, nl speech, other (Improving generalized weakness) Results Result Diagram: 08/21/1718 08/21/1718 Results 24 hrs Laboratory Tests Test 08/21/17 06:18 White Blood Count 6.8 Red Blood Count 3.10 L Hemoglobin 8.3 L Hematocrit 26.0 L Mean Corpuscular Volume 83.9 Mean Corpuscular Hemoglobin 26.8 L Mean Corpuscular Hemoglobin Concent 31.9 L Red Cell Distribution Width 21.2 H Platelet Count 309 Mean Platelet Volume 9.5 Neutrophils % 65.8 Lymphocytes % 15.5 Monocytes % 10.5 Eosinophils % 5.3 Basophils % 0.3 Nucleated Red Blood Cells % 0.0 Neutrophils # 4.5 Lymphocytes # 1.1 Monocytes # 0.7 Eosinophils # 0.4 Basophils # 0.0 Nucleated Red Blood Cells # 0.0 Sodium Level 132 L Potassium Level 4.4 Chloride Level 92 L Carbon Dioxide Level 34 H Anion Gap 10 Blood Urea Nitrogen 23 H Creatinine 0.81 Glucose Level 124 Calcium Level 8.3 L Phosphorus Level 4.3 Magnesium Level 2.2 Medications Medications Current Medications Acetaminophen (Tylenol Tab) 650 mg Q4H PRN PO pain/fever; Start 07/24/17 at 07 :00; Status Future Hold Phenol (Chloraseptic Throat [place]) 2 spray Q2H PRN MT SORE THROAT Last administered on 07/29/17 18:10; Admin Dose 2 SPRAY; Start 07/29/17 at 13:00 Diphenhydramine HCl (Benadryl) 25 mg Q6H PRN IV SLEEP Last administered on 08/01 00:19; Admin Dose 25 MG; Start 07/31/17 at 13:00 Chlorpromazine (Thorazine) 10 mg Q6 PRN IM HICCUPS Last administered on 21:21; Admin Dose 10 MG; Start 08/02/17 at 06:00 Loratadine (Claritin) 10 mg DAILY NGT Last administered on 08/21/17 08:16; Admin Dose 10 MG; Start 08/04/17 at 09:00 Hydromorphone HCl 0.5 mg 0.5 mg Q2H PRN IV PAIN Last administered on 08:09; Admin Dose 0.5 MG; Start 08/05/17 at 22:30 Meropenem/Sodium Chloride (Merrem 1 Gm/50 ml (Pmx)) 50 ml @ 100 mls/hr Q12 IVPB Last administered on 08/21/17 08:18; Admin Dose 100 MLS/HR; Start at 21:00 Hydralazine HCl (Apresoline) 10 mg Q6H PRN IV sbp>170 Last administered on 14:18; Admin Dose 10 MG; Start 08/07/17 at 18:00 Lisinopril (Zestril) 20 mg DAILY PO Last administered on 08/21/17 08:16; Admin Dose 20 MG; Start 08/10/17 at 10:30 Acetaminophen (Tylenol Tab) 650 mg Q4H PRN PO PAIN AND OR ELEVATED TEMP Last administered on 08/19/17 21:02; Admin Dose 650 MG; Start 08/10/17 at 10:30 Ondansetron HCl (Zofran Inj) 4 mg Q6H PRN IV NAUSEA AND/OR VOMITING Last administered on 08/21/17 08:49; Admin Dose 4 MG; Start 08/12/17 at 13:00 Amiodarone HCl (Cordarone) 200 mg BID PO Last administered on 08/21/17 08:15 ; Admin Dose 200 MG; Start 08/14/17 at 12:00 Pantoprazole (Protonix Tab) 40 mg DAILY@06 PO Last administered on 08/21/17 06:12; Admin Dose 40 MG; Start 08/16/17 at 06:00 Metoclopramide HCl 10 mg 10 mg Q6 PRN IV Nausea Last administered on 18:37; Admin Dose 10 MG; Start 08/17/17 at 18:00 Vancomycin HCl (Vancocin) 250 ml @ 125 mls/hr Q24H IVPB Last administered on 08/20/17 14:40; Admin Dose 125 MLS/HR; Start 08/19/17 at 13:00 Nystatin (Nystatin Susp) 5 ml QID PO Last administered on 08/21/17 08:14; Admin Dose 5 ML; Start 08/20/17 at 13:00 Fluconazole (Diflucan) 100 mg DAILY PO Last administered on 08/21/17 08:16; Admin Dose 100 MG; Start 08/21/17 at 09:00 Carvedilol (Coreg) 3.125 mg BID PO Last administered on 08/21/17 08:15; Admin Dose 3.125 MG; Start 08/20/17 at 21:00 RAE CALVO Aug 21, 2017 11:02
--- NOTE | 2017-08-21 13:20 | PN ---
Date/Time of Note Date/Time of Note DATE: 08/21/17 TIME: 13:19 Assessment/Plan VTE Prophylaxis VTE Prophylaxis Intervention: SCD's Lines/Catheters IV Catheter Type (from Nrs): Mid Line Central line still needed: Yes Urinary Cath still in place: Yes Reason Cath still needed: other (indicate) Assessment/Plan Chief Complaint/Hosp Course 51 yo F with bleeding colon cancer taken to the OR for urgent resection with primary anastomosis postop course was ok and was tolerating clears until she develop afib with RVR and diaphoresis was transferred to the ICU, she developed ileus and emesis, CT scan showed anastomotic leak patient taken to the OR for washout and colostomy placement. was on pressors for one night now off. Problems: Assessment/Plan ok to restart full anticoagulation continue optimize diet and nutrition keep drains in until see in the office dc to SNF per primary team Subjective 24 Hr Interval Summary Free Text/Dictation doing well tolerating diet, colostomy functioning Exam/Review of Systems Vital Signs Vitals Vital Signs Date Time Temp Pulse Resp B/P Pulse Ox O2 Delivery O2 Flow Rate FiO2 08/21/17 12:17 98.1 78 18 124/71 97 08/21/17 06:20 2.0 08/20/17 20:00 Nasal Cannula Intake and Output 08/20/17 08/20/17 08/21/17 14:59 22:59 06:59 Intake Total 1500 ml 800 ml Output Total 600 ml 700 ml Balance 900 ml 100 ml Exam c/d/i colostomy viable Results Result Diagram: 08/21/17 0618 08/21/17 0618 Results 24 hrs Laboratory Tests Test 08/21/17 06:18 White Blood Count 6.8 Red Blood Count 3.10 L Hemoglobin 8.3 L Hematocrit 26.0 L Mean Corpuscular Volume 83.9 Mean Corpuscular Hemoglobin 26.8 L Mean Corpuscular Hemoglobin Concent 31.9 L Red Cell Distribution Width 21.2 H Platelet Count 309 Mean Platelet Volume 9.5 Neutrophils % 65.8 Lymphocytes % 15.5 Monocytes % 10.5 Eosinophils % 5.3 Basophils % 0.3 Nucleated Red Blood Cells % 0.0 Neutrophils # 4.5 Lymphocytes # 1.1 Monocytes # 0.7 Eosinophils # 0.4 Basophils # 0.0 Nucleated Red Blood Cells # 0.0 Sodium Level 132 L Potassium Level 4.4 Chloride Level 92 L Carbon Dioxide Level 34 H Anion Gap 10 Blood Urea Nitrogen 23 H Creatinine 0.81 Glucose Level 124 Calcium Level 8.3 L Phosphorus Level 4.3 Magnesium Level 2.2 Medications Medications Current Medications Acetaminophen (Tylenol Tab) 650 mg Q4H PRN PO pain/fever; Start 07/24/17 at 07 :00; Status Future Hold Phenol (Chloraseptic Throat [place]) 2 spray Q2H PRN MT SORE THROAT Last administered on 07/29/17 18:10; Admin Dose 2 SPRAY; Start 07/29/17 at 13:00 Diphenhydramine HCl (Benadryl) 25 mg Q6H PRN IV SLEEP Last administered on 08/01 00:19; Admin Dose 25 MG; Start 07/31/17 at 13:00 Chlorpromazine (Thorazine) 10 mg Q6 PRN IM HICCUPS Last administered on 21:21; Admin Dose 10 MG; Start 08/02/17 at 06:00 Loratadine 10 mg 10 mg DAILY NGT Last administered on 08/21/17 08:16; Admin Dose 10 MG; Start 08/04/17 at 09:00 Meropenem/Sodium Chloride (Merrem 1 Gm/50 ml (Pmx)) 50 ml @ 100 mls/hr Q12 IVPB Last administered on 08/21/17 08:18; Admin Dose 100 MLS/HR; Start at 21:00 Hydralazine HCl (Apresoline) 10 mg Q6H PRN IV sbp>170 Last administered on 14:18; Admin Dose 10 MG; Start 08/07/17 at 18:00 Lisinopril (Zestril) 20 mg DAILY PO Last administered on 08/21/17 08:16; Admin Dose 20 MG; Start 08/10/17 at 10:30 Acetaminophen (Tylenol Tab) 650 mg Q4H PRN PO PAIN AND OR ELEVATED TEMP Last administered on 08/19/17 21:02; Admin Dose 650 MG; Start 08/10/17 at 10:30 Ondansetron HCl (Zofran Inj) 4 mg Q6H PRN IV NAUSEA AND/OR VOMITING Last administered on 08/21/17 08:49; Admin Dose 4 MG; Start 08/12/17 at 13:00 Amiodarone HCl (Cordarone) 200 mg BID PO Last administered on 08/21/17 08:15 ; Admin Dose 200 MG; Start 08/14/17 at 12:00 Pantoprazole (Protonix Tab) 40 mg DAILY@06 PO Last administered on 08/21/17 06:12; Admin Dose 40 MG; Start 08/16/17 at 06:00 Metoclopramide HCl 10 mg 10 mg Q6 PRN IV Nausea Last administered on 18:37; Admin Dose 10 MG; Start 08/17/17 at 18:00 Vancomycin HCl (Vancocin) 250 ml @ 125 mls/hr Q24H IVPB Last administered on 08/20/17 14:40; Admin Dose 125 MLS/HR; Start 08/19/17 at 13:00 Nystatin (Nystatin Susp) 5 ml QID PO Last administered on 08/21/17 08:14; Admin Dose 5 ML; Start 08/20/17 at 13:00 Fluconazole (Diflucan) 100 mg DAILY PO Last administered on 08/21/17 08:16; Admin Dose 100 MG; Start 08/21/17 at 09:00 Carvedilol 3.125 mg 3.125 mg BID PO Last administered on 08/21/17 08:15; Admin Dose 3.125 MG; Start 08/20/17 at 21:00 Ferric Sodium Gluconate Complex/ Sodium Chloride (Ferrlecit/NS) 110 ml @ 100 mls/hr Q24H IVPB ; Start 08/21/17 at 13:00; Stop 08/23/17 at 14:05 Hydromorphone HCl (Dilaudid) 1 mg Q3H PRN PO PAIN; Start 08/21/17 at 11:30 Miscellaneous Information (*Rx Drug Level Order Reminder*) VANCOMYCIN TROUGH AT 1200 ONCE ONCE XX ; Start 08/22/17 at 12:00; Stop 08/22/17 at 12:01 Hilario BOTELLO Aug 21, 2017 13:20
[2017-08-21] MEDS: HYDROmorphONE 2 MG TAB PO PRN ×3 (13:21→20:05)
[2017-08-21] MEDS: VANCOMYCIN 1 GM in NS 250 ML IVPB SCH (13:36)
[2017-08-21] MEDS: METOCLOPRAMIDE 10 MG INJ IV PRN (13:36)
--- NOTE | 2017-08-21 15:01 | CONS ---
Date/Time of Note Date/Time of Note DATE: 08/21/17 TIME: 15:00 Assessment/Plan Assessment/Plan Chief Complaint/Hosp Course SUBJECTIVE: No acute changes. Alert, looks comfortable. No fevers. MICROBIOLOGY: VITA fluid growing Enterobacter cloacae, MRSA and Enterococcus species. ANTIMICROBIALS: Vancomycin, Diflucan and Meropenem. INDWELLINGS: Leal, VITA, colostomy. PHYSICAL EXAMINATION: GENERAL: Obese, well-developed, ill-appearing, middle-aged woman who is in no distress. HEENT: Head atraumatic, normocephalic. Sclerae anicteric. Buccal mucosa dry. NECK: Supple. CHEST: Rise symmetrical. Breath sounds diminished to bases. HEART: S1, S2. ABDOMEN: Soft, bowel tones present. EXTREMITIES: Without cyanosis. ASSESSMENT: 1. Systemic inflammatory response syndrome secondary to intra-abdominal pathology with Den-Klein fluid culture growing multiple organisms, final identification pending, the patient is on appropriate antibiotics. 2. Status post septic shock. 3. Status post respiratory failure. 4. Colon cancer, status post resection complicated by anastomotic leak, status post exploratory laparotomy, drainage of abscesses and partial colectomy with colostomy on 08/05/2017. 5. Obesity. 6. Status post thoracentesis for left pleural effusion. 7. Oral candidiasis PLAN: The patient remains stable. Continue abx, Diflucan and Nystatin for oral thrush, PT, f/u surgical rec-s DW pt/staff Problems: Consultation Date/Type/Reason Admit Date/Time Jul 24, 2017 at 06:16 Initial Consult Date 08/05/17 Type of Consultation: ID Referring Provider: RAE CALVO Exam/Review of Systems Vital Signs Vitals Vital Signs Date Time Temp Pulse Resp B/P Pulse Ox O2 Delivery O2 Flow Rate FiO2 08/21/17 12:17 98.1 78 18 124/71 97 08/21/17 06:20 2.0 08/20/17 20:00 Nasal Cannula Intake and Output 08/20/17 08/20/17 08/21/17 15:00 23:00 07:00 Intake Total 1500 ml 800 ml Output Total 600 ml 700 ml Balance 900 ml 100 ml Results Result Diagram: 08/21/1718 08/21/1718 Results 24 hrs Laboratory Tests Test 08/21/17 06:18 White Blood Count 6.8 Red Blood Count 3.10 L Hemoglobin 8.3 L Hematocrit 26.0 L Mean Corpuscular Volume 83.9 Mean Corpuscular Hemoglobin 26.8 L Mean Corpuscular Hemoglobin Concent 31.9 L Red Cell Distribution Width 21.2 H Platelet Count 309 Mean Platelet Volume 9.5 Neutrophils % 65.8 Lymphocytes % 15.5 Monocytes % 10.5 Eosinophils % 5.3 Basophils % 0.3 Nucleated Red Blood Cells % 0.0 Neutrophils # 4.5 Lymphocytes # 1.1 Monocytes # 0.7 Eosinophils # 0.4 Basophils # 0.0 Nucleated Red Blood Cells # 0.0 Sodium Level 132 L Potassium Level 4.4 Chloride Level 92 L Carbon Dioxide Level 34 H Anion Gap 10 Blood Urea Nitrogen 23 H Creatinine 0.81 Glucose Level 124 Calcium Level 8.3 L Phosphorus Level 4.3 Magnesium Level 2.2 Medications Medications Current Medications Acetaminophen (Tylenol Tab) 650 mg Q4H PRN PO pain/fever; Start 07/24/17 at 07 :00; Status Future Hold Phenol (Chloraseptic Throat [place]) 2 spray Q2H PRN MT SORE THROAT Last administered on 07/29/17 18:10; Admin Dose 2 SPRAY; Start 07/29/17 at 13:00 Diphenhydramine HCl (Benadryl) 25 mg Q6H PRN IV SLEEP Last administered on 08/01 00:19; Admin Dose 25 MG; Start 07/31/17 at 13:00 Chlorpromazine (Thorazine) 10 mg Q6 PRN IM HICCUPS Last administered on 21:21; Admin Dose 10 MG; Start 08/02/17 at 06:00 Loratadine 10 mg 10 mg DAILY NGT Last administered on 08/21/17 08:16; Admin Dose 10 MG; Start 08/04/17 at 09:00 Meropenem/Sodium Chloride (Merrem 1 Gm/50 ml (Pmx)) 50 ml @ 100 mls/hr Q12 IVPB Last administered on 08/21/17 08:18; Admin Dose 100 MLS/HR; Start at 21:00 Hydralazine HCl (Apresoline) 10 mg Q6H PRN IV sbp>170 Last administered on 14:18; Admin Dose 10 MG; Start 08/07/17 at 18:00 Lisinopril (Zestril) 20 mg DAILY PO Last administered on 08/21/17 08:16; Admin Dose 20 MG; Start 08/10/17 at 10:30 Acetaminophen (Tylenol Tab) 650 mg Q4H PRN PO PAIN AND OR ELEVATED TEMP Last administered on 08/19/17 21:02; Admin Dose 650 MG; Start 08/10/17 at 10:30 Ondansetron HCl (Zofran Inj) 4 mg Q6H PRN IV NAUSEA AND/OR VOMITING Last administered on 08/21/17 08:49; Admin Dose 4 MG; Start 08/12/17 at 13:00 Amiodarone HCl (Cordarone) 200 mg BID PO Last administered on 08/21/17 08:15 ; Admin Dose 200 MG; Start 08/14/17 at 12:00 Pantoprazole (Protonix Tab) 40 mg DAILY@06 PO Last administered on 08/21/17 06:12; Admin Dose 40 MG; Start 08/16/17 at 06:00 Metoclopramide HCl 10 mg 10 mg Q6 PRN IV Nausea Last administered on 13:36; Admin Dose 10 MG; Start 08/17/17 at 18:00 Vancomycin HCl (Vancocin) 250 ml @ 125 mls/hr Q24H IVPB Last administered on 08/21/17 13:36; Admin Dose 125 MLS/HR; Start 08/19/17 at 13:00 Nystatin (Nystatin Susp) 5 ml QID PO Last administered on 08/21/17 13:36; Admin Dose 5 ML; Start 08/20/17 at 13:00 Fluconazole (Diflucan) 100 mg DAILY PO Last administered on 08/21/17 08:16; Admin Dose 100 MG; Start 08/21/17 at 09:00 Carvedilol 3.125 mg 3.125 mg BID PO Last administered on 08/21/17 08:15; Admin Dose 3.125 MG; Start 08/20/17 at 21:00 Ferric Sodium Gluconate Complex/ Sodium Chloride (Ferrlecit/NS) 110 ml @ 100 mls/hr Q24H IVPB ; Start 08/21/17 at 13:00; Stop 08/23/17 at 14:05 Hydromorphone HCl (Dilaudid) 1 mg Q3H PRN PO PAIN Last administered on t 13:21; Admin Dose 1 MG; Start 08/21/17 at 11:30 Miscellaneous Information (*Rx Drug Level Order Reminder*) VANCOMYCIN TROUGH AT 1200 ONCE ONCE XX ; Start 08/22/17 at 12:00; Stop 08/22/17 at 12:01 YG TARANGO NP Aug 21, 2017 15:01
[2017-08-21] MEDS: SOD FERRIC GLUC COMPLX 125 MG in SOD CHLORIDE 0.9% 100 ML IVPB SCH (16:34)
--- NOTE | 2017-08-21 21:39 | CONS ---
Date/Time of Note Date/Time of Note DATE: 08/21/17 TIME: 21:38 Assessment/Plan Assessment/Plan Additional Assessment/Plan 1. Oliguric EJ due to ATN from Shock- Multifactorial septic from peritonitis + Hemorrhagic- Improving, making good urine 2. Acute hyperkalemia due to EJ- Resolved 3. Metabolic acidosis with lactic acidosis- Improved much better, 4. acute resp failure, possible Asp PNA vs HCAP - pt remained on ventilator post operatively ,s/p US throacentesis 400 cc removed from left chest on - s/p extubation on 08/09/17 5. Septic shock requiring pressors, now off levophed 6. Status post Left hemicolectomy for sigmoid adenocarcinoma/mass POD#7, s/p total of 4 units pRBC since admission. - again pt underwent Exploratory laparotomy with intra- abdominal abscess drainage, Placement of percutaneous Maurisio drains #19 x2. , Partial colectomy.Formation of end colostomy with Corona's pouch. on 08/05/17 7. Atrial fibrillation 8. Chronic diastolic heart failure with EF 55% 9. Hypocalcemia with hypoalbuminemia 10. Hypernatremia - resolved with D5W Plan: - s/p Bumex gtt with IV albumin 08/13/17- HCo3 improving,Cr normal, Monitor electrolytes and Replace as needed will continue to follow up along with other subspecialist Consultation Date/Type/Reason Admit Date/Time Jul 24, 2017 at 06:16 Initial Consult Date 08/05/17 Type of Consultation: NEPHROLOGY Referring Provider: RAE CALVO 24 HR Interval Summary Free Text/Dictation Cr normal,HCo3 improving Exam/Review of Systems Vital Signs Vitals Vital Signs Date Time Temp Pulse Resp B/P Pulse Ox O2 Delivery O2 Flow Rate FiO2 08/21/17 20:58 2.0 08/21/17 20:25 98.3 85 21 136/74 98 08/21/17 12:00 Nasal Cannula Intake and Output 08/20/17 08/20/17 08/21/17 15:00 23:00 07:00 Intake Total 1500 ml 800 ml Output Total 600 ml 700 ml Balance 900 ml 100 ml Exam GENERAL: alert, awake, No acute distress HEENT: CHANDRAKANT, EOMI CHEST: Rise symmetrical. Breath sounds diminished to bases. HEART: S1, S2. ABDOMEN: Soft, bowel tones present. back swelling + EXTREMITIES: With bilateral edema lower extremities.1+ Results Result Diagram: 08/21/1718 08/21/17 0618 Results 24 hrs Laboratory Tests Test 08/21/17 06:18 White Blood Count 6.8 Red Blood Count 3.10 L Hemoglobin 8.3 L Hematocrit 26.0 L Mean Corpuscular Volume 83.9 Mean Corpuscular Hemoglobin 26.8 L Mean Corpuscular Hemoglobin Concent 31.9 L Red Cell Distribution Width 21.2 H Platelet Count 309 Mean Platelet Volume 9.5 Neutrophils % 65.8 Lymphocytes % 15.5 Monocytes % 10.5 Eosinophils % 5.3 Basophils % 0.3 Nucleated Red Blood Cells % 0.0 Neutrophils # 4.5 Lymphocytes # 1.1 Monocytes # 0.7 Eosinophils # 0.4 Basophils # 0.0 Nucleated Red Blood Cells # 0.0 Sodium Level 132 L Potassium Level 4.4 Chloride Level 92 L Carbon Dioxide Level 34 H Anion Gap 10 Blood Urea Nitrogen 23 H Creatinine 0.81 Glucose Level 124 Calcium Level 8.3 L Phosphorus Level 4.3 Magnesium Level 2.2 Medications Medications Current Medications Acetaminophen (Tylenol Tab) 650 mg Q4H PRN PO pain/fever; Start 07/24/17 at 07 :00; Status Future Hold Phenol (Chloraseptic Throat [place]) 2 spray Q2H PRN MT SORE THROAT Last administered on 07/29/17 18:10; Admin Dose 2 SPRAY; Start 07/29/17 at 13:00 Diphenhydramine HCl (Benadryl) 25 mg Q6H PRN IV SLEEP Last administered on 08/01 00:19; Admin Dose 25 MG; Start 07/31/17 at 13:00 Chlorpromazine (Thorazine) 10 mg Q6 PRN IM HICCUPS Last administered on 21:21; Admin Dose 10 MG; Start 08/02/17 at 06:00 Loratadine 10 mg 10 mg DAILY NGT Last administered on 08/21/17 08:16; Admin Dose 10 MG; Start 08/04/17 at 09:00 Meropenem/Sodium Chloride (Merrem 1 Gm/50 ml (Pmx)) 50 ml @ 100 mls/hr Q12 IVPB Last administered on 08/21/17 20:05; Admin Dose 100 MLS/HR; Start at 21:00 Hydralazine HCl (Apresoline) 10 mg Q6H PRN IV sbp>170 Last administered on 14:18; Admin Dose 10 MG; Start 08/07/17 at 18:00 Lisinopril (Zestril) 20 mg DAILY PO Last administered on 08/21/17 08:16; Admin Dose 20 MG; Start 08/10/17 at 10:30 Acetaminophen (Tylenol Tab) 650 mg Q4H PRN PO PAIN AND OR ELEVATED TEMP Last administered on 08/19/17 21:02; Admin Dose 650 MG; Start 08/10/17 at 10:30 Ondansetron HCl (Zofran Inj) 4 mg Q6H PRN IV NAUSEA AND/OR VOMITING Last administered on 08/21/17 16:34; Admin Dose 4 MG; Start 08/12/17 at 13:00 Amiodarone HCl (Cordarone) 200 mg BID PO Last administered on 08/21/17 20:04 ; Admin Dose 200 MG; Start 08/14/17 at 12:00 Pantoprazole (Protonix Tab) 40 mg DAILY@06 PO Last administered on 08/21/17 06:12; Admin Dose 40 MG; Start 08/16/17 at 06:00 Metoclopramide HCl 10 mg 10 mg Q6 PRN IV Nausea Last administered on 13:36; Admin Dose 10 MG; Start 08/17/17 at 18:00 Vancomycin HCl (Vancocin) 250 ml @ 125 mls/hr Q24H IVPB Last administered on 08/21/17 13:36; Admin Dose 125 MLS/HR; Start 08/19/17 at 13:00 Nystatin (Nystatin Susp) 5 ml QID PO Last administered on 08/21/17 20:08; Admin Dose 5 ML; Start 08/20/17 at 13:00 Fluconazole (Diflucan) 100 mg DAILY PO Last administered on 08/21/17 08:16; Admin Dose 100 MG; Start 08/21/17 at 09:00 Carvedilol 3.125 mg 3.125 mg BID PO Last administered on 08/21/17 20:05; Admin Dose 3.125 MG; Start 11/21/17 at 21:00 Ferric Sodium Gluconate Complex/ Sodium Chloride (Ferrlecit/NS) 110 ml @ 100 mls/hr Q24H IVPB Last administered on 08/21/17 16:34; Admin Dose 100 MLS/HR; Start 08/21/17 at 13:00; Stop 08/23/17 at 14:05 Hydromorphone HCl (Dilaudid) 1 mg Q3H PRN PO PAIN Last administered on 20:05; Admin Dose 1 MG; Start 08/21/17 at 11:30 Miscellaneous Information (*Rx Drug Level Order Reminder*) VANCOMYCIN TROUGH AT 1200 ONCE ONCE XX ; Start 08/22/17 at 12:00; Stop 08/22/17 at 12:01 MEKA ROBERTSON MD Aug 21, 2017 21:39
[2017-08-21] MEDS: LEVALBUTEROL (NEB) 0.63 MG/3 ML AMP HHN PRN (21:54)
[2017-08-22] VITALS (12 sets, daily range): BP systolic 129–175; BP diastolic 67–93; PULSE 76–92; RESP 16–20
[2017-08-22] MEDS: HYDROmorphONE 2 MG TAB PO PRN ×5 (02:04→20:35)
[2017-08-22] MEDS: PANTOPRAZOLE (EC) 40 MG TAB PO SCH (05:30)
[2017-08-22 09:08] LABS: BASOPHILS % 0.4 % (0.0-2.0); EOSINOPHILS # 0.4 10^3/ul (0.0-0.5); EOSINOPHILS % 5.5 % (0.0-7.0); HEMATOCRIT 27.7 % (37.0-47.0); HEMOGLOBIN 8.7 g/dl (12.0-16.0); MEAN CORPUSCULAR HEMOGLOBIN 26.7 pg (29.0-33.0); MEAN CORPUSCULAR HGB CONC 31.4 g/dl (32.0-37.0); MEAN PLATELET VOLUME 9.7 fl (7.4-10.4); MONOCYTE # 0.7 10^3/ul (0.3-0.9); MONOCYTES % 9.9 % (0.0-11.0); NEUTROPHIL # 5.1 10^3/ul (1.6-7.5); NEUTROPHILS % 68.6 % (39.0-77.0); PLATELET COUNT 310 10^3/UL (140-415); RED BLOOD COUNT 3.26 10^6/ul (4.20-5.40); RED CELL DISTRIBUTION WIDTH 21.2 % (11.5-14.5); WHITE BLOOD COUNT 7.5 10^3/ul (4.8-10.8)
[2017-08-22 09:27] LABS: ALBUMIN 2.6 g/dl (3.3-4.9); ALBUMIN/GLOBULIN RATIO 0.89; BILIRUBIN,INDIRECT 0.3 mg/dl (0-1.1); BILIRUBIN,TOTAL 0.3 mg/dl (0.2-1.3); CALCIUM 8.4 mg/dl (8.4-10.2); CREATININE 0.78 mg/dl (0.44-1.00); POTASSIUM 4.4 mmol/L (3.5-5.1); TOTAL PROTEIN 5.5 g/dl (6.1-8.1)
[2017-08-22 09:28] LABS: MAGNESIUM 2.1 mg/dl (1.7-2.5)
[2017-08-22] MEDS: ONDANSETRON 4 MG INJ IV PRN ×2 (09:32→16:19)
[2017-08-22] MEDS: NYSTATIN SUSP 5 ML CUP PO SCH ×4 (09:33→20:36)
[2017-08-22] MEDS: MEROPENEM 1 GM/50ML(PMX) 50 ML IVPB SCH ×2 (09:33→20:37)
[2017-08-22] MEDS: AMIODARONE 200 MG TAB PO SCH (09:36)
[2017-08-22] MEDS: LORATADINE 10 MG TAB NGT SCH (09:36)
[2017-08-22] MEDS: FLUCONAZOLE 100 MG TAB PO SCH (09:37)
[2017-08-22] MEDS: LISINOPRIL 20 MG TAB PO SCH (10:18)
--- NOTE | 2017-08-22 12:23 | CONS ---
Date/Time of Note Date/Time of Note DATE: 08/22/17 TIME: 12:21 Assessment/Plan Assessment/Plan Chief Complaint/Hosp Course SUBJECTIVE: Patient is awake, complaining of cough, looks comfortable on nasal cannula, no fevers MICROBIOLOGY: VITA fluid growing Enterobacter cloacae, MRSA and Enterococcus species. ANTIMICROBIALS: Vancomycin, Diflucan and Meropenem. INDWELLINGS: Leal, VITA, colostomy. PHYSICAL EXAMINATION: GENERAL: Obese, well-developed, ill-appearing, middle-aged woman who is in no distress. HEENT: Head atraumatic, normocephalic. Sclerae anicteric. Buccal mucosa dry. NECK: Supple. CHEST: Rise symmetrical. Breath sounds with bilateral crackles. HEART: S1, S2. ABDOMEN: Soft, bowel tones present. EXTREMITIES: Without cyanosis. ASSESSMENT: 1. Systemic inflammatory response syndrome secondary to intra-abdominal pathology with Den-Klein fluid culture growing multiple organisms, final identification pending, the patient is on appropriate antibiotics. 2. Status post septic shock. 3. Status post respiratory failure. 4. Colon cancer, status post resection complicated by anastomotic leak, status post exploratory laparotomy, drainage of abscesses and partial colectomy with colostomy on 08/05/2017. 5. Obesity. 6. Status post thoracentesis for left pleural effusion. 7. Oral candidiasis PLAN: Clinically unchanged with worsening congestion and cough, will order chest x-ray. Continue abx, Diflucan and Nystatin for oral thrush, PT, f/u surgical rec-s DW pt/staff Problems: Consultation Date/Type/Reason Admit Date/Time Jul 24, 2017 at 06:16 Initial Consult Date 08/05/17 Type of Consultation: ID Referring Provider: RAE CALVO Exam/Review of Systems Vital Signs Vitals Vital Signs Date Time Temp Pulse Resp B/P Pulse Ox O2 Delivery O2 Flow Rate FiO2 08/22/17 12:03 86 08/22/17 11:34 98.6 16 175/90 95 08/22/17 08:00 Nasal Cannula 08/21/17 21:54 2.0 Intake and Output 08/21/17 08/21/17 08/22/17 15:00 23:00 07:00 Intake Total 50 ml 1960 ml 2000 ml Output Total 1600 ml 2650 ml Balance 50 ml 360 ml -650 ml Results Result Diagram: 08/22/1782808/22/17828 Results 24 hrs Laboratory Tests Test 08/22/17 08:29 White Blood Count 7.5 Red Blood Count 3.26 L Hemoglobin 8.7 L Hematocrit 27.7 L Mean Corpuscular Volume 85.0 Mean Corpuscular Hemoglobin 26.7 L Mean Corpuscular Hemoglobin Concent 31.4 L Red Cell Distribution Width 21.2 H Platelet Count 310 Mean Platelet Volume 9.7 Neutrophils % 68.6 Lymphocytes % 13.0 L Monocytes % 9.9 Eosinophils % 5.5 Basophils % 0.4 Nucleated Red Blood Cells % 0.0 Neutrophils # 5.1 Lymphocytes # 1.0 Monocytes # 0.7 Eosinophils # 0.4 Basophils # 0.0 Nucleated Red Blood Cells # 0.0 Sodium Level 136 Potassium Level 4.4 Chloride Level 93 L Carbon Dioxide Level 34 H Anion Gap 13 Blood Urea Nitrogen 18 Creatinine 0.78 Glucose Level 118 Calcium Level 8.4 Phosphorus Level 5.0 H Magnesium Level 2.1 Total Bilirubin 0.3 Direct Bilirubin 0.00 Indirect Bilirubin 0.3 Aspartate Amino Transf (AST/SGOT) 25 Alanine Aminotransferase (ALT/SGPT) 37 Alkaline Phosphatase 106 Total Protein 5.5 L Albumin 2.6 L Globulin 2.90 Albumin/Globulin Ratio 0.89 Medications Medications Current Medications Acetaminophen (Tylenol Tab) 650 mg Q4H PRN PO pain/fever; Start 07/24/17 at 07 :00; Status Future Hold Phenol (Chloraseptic Throat [place]) 2 spray Q2H PRN MT SORE THROAT Last administered on 07/29/17 18:10; Admin Dose 2 SPRAY; Start 07/29/17 at 13:00 Diphenhydramine HCl (Benadryl) 25 mg Q6H PRN IV SLEEP Last administered on 08/01 00:19; Admin Dose 25 MG; Start 07/31/17 at 13:00 Chlorpromazine (Thorazine) 10 mg Q6 PRN IM HICCUPS Last administered on 21:21; Admin Dose 10 MG; Start 08/02/17 at 06:00 Loratadine 10 mg 10 mg DAILY NGT Last administered on 08/22/17 09:36; Admin Dose 10 MG; Start 08/04/17 at 09:00 Meropenem/Sodium Chloride (Merrem 1 Gm/50 ml (Pmx)) 50 ml @ 100 mls/hr Q12 IVPB Last administered on 08/22/17 09:33; Admin Dose 100 MLS/HR; Start at 21:00 Hydralazine HCl (Apresoline) 10 mg Q6H PRN IV sbp>170 Last administered on 14:18; Admin Dose 10 MG; Start 08/07/17 at 18:00 Lisinopril (Zestril) 20 mg DAILY PO Last administered on 08/22/17 10:18; Admin Dose 20 MG; Start 08/10/17 at 10:30 Acetaminophen (Tylenol Tab) 650 mg Q4H PRN PO PAIN AND OR ELEVATED TEMP Last administered on 08/19/17 21:02; Admin Dose 650 MG; Start 08/10/17 at 10:30 Ondansetron HCl (Zofran Inj) 4 mg Q6H PRN IV NAUSEA AND/OR VOMITING Last administered on 08/22/17 09:32; Admin Dose 4 MG; Start 08/12/17 at 13:00 Amiodarone HCl (Cordarone) 200 mg BID PO Last administered on 08/22/17 09:36 ; Admin Dose 200 MG; Start 08/14/17 at 12:00 Pantoprazole (Protonix Tab) 40 mg DAILY@06 PO Last administered on 08/22/17 05:30; Admin Dose 40 MG; Start 08/16/17 at 06:00 Metoclopramide HCl 10 mg 10 mg Q6 PRN IV Nausea Last administered on 13:36; Admin Dose 10 MG; Start 08/17/17 at 18:00 Vancomycin HCl (Vancocin) 250 ml @ 125 mls/hr Q24H IVPB Last administered on 08/21/17 13:36; Admin Dose 125 MLS/HR; Start 08/19/17 at 13:00 Nystatin (Nystatin Susp) 5 ml QID PO Last administered on 08/22/17 09:33; Admin Dose 5 ML; Start 08/20/17 at 13:00 Fluconazole (Diflucan) 100 mg DAILY PO Last administered on 08/22/17 09:37; Admin Dose 100 MG; Start 08/21/17 at 09:00 Carvedilol 3.125 mg 3.125 mg BID PO Last administered on 08/22/17 09:41; Admin Dose 3.125 MG; Start 08/20/17 at 21:00 Ferric Sodium Gluconate Complex/ Sodium Chloride (Ferrlecit/NS) 110 ml @ 100 mls/hr Q24H IVPB Last administered on 08/21/17 16:34; Admin Dose 100 MLS/HR; Start 08/21/17 at 13:00; Stop 08/23/17 at 14:05 Hydromorphone HCl (Dilaudid) 1 mg Q3H PRN PO PAIN Last administered on 09:35; Admin Dose 1 MG; Start 08/21/17 at 11:30 YG TARANGO NP Aug 22, 2017 12:23
[2017-08-22] MEDS: LEVALBUTEROL (NEB) 0.63 MG/3 ML AMP HHN PRN (13:57)
[2017-08-22] MEDS: METOCLOPRAMIDE 10 MG INJ IV PRN ×2 (14:02→20:45)
[2017-08-22] MEDS: VANCOMYCIN 1 GM in NS 250 ML IVPB SCH (14:03)
--- NOTE | 2017-08-22 14:14 | CONS ---
Date/Time of Note Date/Time of Note DATE: 08/22/17 TIME: 14:13 Assessment/Plan Assessment/Plan Additional Assessment/Plan Paroxysmal atrial fibrillation, currently sinus Acute decompensated systolic and diastolic congestive heart failure Low normal ejection fraction 50% Colon mass status post colon surgery July 26, 2017 and repeat August 05, 2017 Acute kidney injury, improved Sepsis Vent dependent respiratory failure, status post extubation -Patient remains in sinus rhythm, decrease amiodarone to daily, increase dose of Coreg as blood pressure tolerates. Ideally maintain potassium above 4.0 and magnesium above 2.0. Diuretics as per our nephrology colleagues. Restart anticoagulation when okay by our surgery colleagues. Consultation Date/Type/Reason Admit Date/Time Jul 24, 2017 at 06:16 Initial Consult Date 07/29/17 Type of Consultation: cv Referring Provider: RAE CALVO 24 HR Interval Summary Free Text/Dictation Shortness of breath continues to improve, denies palpitations Exam/Review of Systems Vital Signs Vitals Vital Signs Date Time Temp Pulse Resp B/P Pulse Ox O2 Delivery O2 Flow Rate FiO2 08/22/17 14:07 97 2.0 08/22/17 13:58 87 20 Nasal Cannula 08/22/17 11:34 98.6 175/90 Intake and Output 08/21/17 08/21/17 08/22/17 15:00 23:00 07:00 Intake Total 50 ml 1960 ml 2000 ml Output Total 1600 ml 2650 ml Balance 50 ml 360 ml -650 ml Exam Eating lunch, no apparent distress Constitutional: alert, obese, oriented Head: normocephalic Respiratory: other (Coarse breath sounds bilaterally, no wheezing) Cardiovascular: other (S1-S2 heard), regular rate and rhythm Gastrointestinal: bowel sounds, soft Extremities: edema Results Result Diagram: 08/22/17 0829 08/22/17 0829 Results 24 hrs Laboratory Tests Test 08/22/17 08:29 08/22/17 12:21 White Blood Count 7.5 Red Blood Count 3.26 L Hemoglobin 8.7 L Hematocrit 27.7 L Mean Corpuscular Volume 85.0 Mean Corpuscular Hemoglobin 26.7 L Mean Corpuscular Hemoglobin Concent 31.4 L Red Cell Distribution Width 21.2 H Platelet Count 310 Mean Platelet Volume 9.7 Neutrophils % 68.6 Lymphocytes % 13.0 L Monocytes % 9.9 Eosinophils % 5.5 Basophils % 0.4 Nucleated Red Blood Cells % 0.0 Neutrophils # 5.1 Lymphocytes # 1.0 Monocytes # 0.7 Eosinophils # 0.4 Basophils # 0.0 Nucleated Red Blood Cells # 0.0 Sodium Level 136 Potassium Level 4.4 Chloride Level 93 L Carbon Dioxide Level 34 H Anion Gap 13 Blood Urea Nitrogen 18 Creatinine 0.78 Glucose Level 118 Calcium Level 8.4 Phosphorus Level 5.0 H Magnesium Level 2.1 Total Bilirubin 0.3 Direct Bilirubin 0.00 Indirect Bilirubin 0.3 Aspartate Amino Transf (AST/SGOT) 25 Alanine Aminotransferase (ALT/SGPT) 37 Alkaline Phosphatase 106 Total Protein 5.5 L Albumin 2.6 L Globulin 2.90 Albumin/Globulin Ratio 0.89 Vancomycin Level Trough 9.8 L Medications Medications Current Medications Acetaminophen (Tylenol Tab) 650 mg Q4H PRN PO pain/fever; Start 07/24/17 at 07 :00; Status Future Hold Phenol (Chloraseptic Throat [place]) 2 spray Q2H PRN MT SORE THROAT Last administered on 07/29/17 18:10; Admin Dose 2 SPRAY; Start 07/29/17 at 13:00 Diphenhydramine HCl (Benadryl) 25 mg Q6H PRN IV SLEEP Last administered on 08/01 00:19; Admin Dose 25 MG; Start 07/31/17 at 13:00 Chlorpromazine (Thorazine) 10 mg Q6 PRN IM HICCUPS Last administered on 21:21; Admin Dose 10 MG; Start 08/02/17 at 06:00 Loratadine 10 mg 10 mg DAILY NGT Last administered on 08/22/17 09:36; Admin Dose 10 MG; Start 08/04/17 at 09:00 Meropenem/Sodium Chloride (Merrem 1 Gm/50 ml (Pmx)) 50 ml @ 100 mls/hr Q12 IVPB Last administered on 08/22/17 09:33; Admin Dose 100 MLS/HR; Start at 21:00 Hydralazine HCl (Apresoline) 10 mg Q6H PRN IV sbp>170 Last administered on 14:18; Admin Dose 10 MG; Start 08/07/17 at 18:00 Lisinopril (Zestril) 20 mg DAILY PO Last administered on 08/22/17 10:18; Admin Dose 20 MG; Start 08/10/17 at 10:30 Acetaminophen (Tylenol Tab) 650 mg Q4H PRN PO PAIN AND OR ELEVATED TEMP Last administered on 08/19/17 21:02; Admin Dose 650 MG; Start 08/10/17 at 10:30 Ondansetron HCl (Zofran Inj) 4 mg Q6H PRN IV NAUSEA AND/OR VOMITING Last administered on 08/22/17 09:32; Admin Dose 4 MG; Start 08/12/17 at 13:00 Amiodarone HCl (Cordarone) 200 mg BID PO Last administered on 08/22/17 09:36 ; Admin Dose 200 MG; Start 08/14/17 at 12:00 Pantoprazole (Protonix Tab) 40 mg DAILY@06 PO Last administered on 08/22/17 05:30; Admin Dose 40 MG; Start 08/16/17 at 06:00 Metoclopramide HCl 10 mg 10 mg Q6 PRN IV Nausea Last administered on 14:02; Admin Dose 10 MG; Start 08/17/17 at 18:00 Vancomycin HCl (Vancocin) 250 ml @ 125 mls/hr Q24H IVPB Last administered on 08/22/17 14:03; Admin Dose 125 MLS/HR; Start 08/19/17 at 13:00; Stop at 20:00 Nystatin (Nystatin Susp) 5 ml QID PO Last administered on 08/22/17 14:03; Admin Dose 5 ML; Start 08/20/17 at 13:00 Fluconazole (Diflucan) 100 mg DAILY PO Last administered on 08/22/17 09:37; Admin Dose 100 MG; Start 08/21/17 at 09:00 Carvedilol 3.125 mg 3.125 mg BID PO Last administered on 08/22/17 09:41; Admin Dose 3.125 MG; Start 08/20/17 at 21:00 Ferric Sodium Gluconate Complex/ Sodium Chloride (Ferrlecit/NS) 110 ml @ 100 mls/hr Q24H IVPB Last administered on 08/21/17 16:34; Admin Dose 100 MLS/HR; Start 08/21/17 at 13:00; Stop 08/23/17 at 14:05 Hydromorphone HCl 2 mg 2 mg Q3H PRN PO PAIN Last administered on 08/22/17t 14: 02; Admin Dose 2 MG; Start 08/22/17 at 14:30 Vancomycin HCl/ Sodium Chloride (Vancocin/NS) 250 ml @ 83.333 mls/ hr Q24H IVPB ; Start 08/23/17 at 10:00 Fercho Mojica DO Aug 22, 2017 14:14
--- NOTE | 2017-08-22 14:23 | PN ---
Date/Time of Note Date/Time of Note DATE: 08/22/17 TIME: 14:21 Assessment/Plan VTE Prophylaxis VTE Prophylaxis Intervention: SCD's Lines/Catheters IV Catheter Type (from Nrsg): Mid Line Assessment/Plan Chief Complaint/Hosp Course 1. Postop anastomotic leak with sepsis, status post ex lap with drainage of abscesses, drain placement, partial colectomy and colostomy POD#15 Status post Left hemicolectomy for sigmoid adenocarcinoma/mass POD#24 Intraoperative/intraperitoneal cultures positive for E. coli, enterococcus, staph aureus. VITA drain culture sent recently with enterococcus, Enterobacter cloacae and staph aureus. Patient still on appropriate antibiotics based on previous cultures and most recent cultures, leukocytosis improving except for ongoing bandemia. She remains afebrile Follow-up infectious disease recommendations regarding choices of antibiotics and length of treatment based on current data. Per latest discussion with infectious disease patient may need a prolonged course due to deep intra- abdominal infection postoperatively/abscesses. This would mean the patient may need to complete up to 4 weeks of antibiotics, she has been on antibiotics for the past couple of weeks already. Midline in place Patient on regular diet. Encourage physical therapy and out of bed to chair at least. Will increase Dilaudid to p.o. to 2 mg She will need senior care facility placement at time of discharge 2. Thrush, oral candidiasis, slowly improving, continue nystatin qid and Diflucan p.o. 3. S/p Acute respiratory failure, postoperatively secondary to volume overload. Status post diuresis with Bumex drip and scheduled Bumex. Much improved volume status and off Bumex currently. Appreciate recommendations from nephrology and pulmonary. 4. Atrial fibrillation, chronic, maintaining sinus rhythm, s/p 1 unit pRBC transfusion Replete potassium and magnesium as needed Keep electrolytes within normal. Continue low-dose amiodarone p.o. also back on carvedilol Appreciate cardiology recommendations. Anticoagulation discontinued for now, per cardiology okay to resume once okay per general surgery Downgrade to MedSur 5. Chronic congestive heart failure, chronic diastolic dysfunction and ejection fraction of 55% on latest outpatient echocardiogram in January 2017 and confirmed to be 50% on this admission. Status post CHF exacerbation, better volume status. Current diuresis with Bumex as needed 6. Acute kidney injury, in setting of sepsis, also had the contrast studies 2. Resolved, renal function back to normal. Leal catheter in place. Adequate urine output, patient off fluids, Bumex as needed, will plan on giving today with packed red blood cell transfusion. Follow-up recommendations from nephrology, Dr. Kiser 7. Anemia, acute on chronic, postop: Hemoglobin was down to 7.5, patient apparently had a reaction during blood transfusion when she became febrile with some chills after 1 unit of packed red blood cells. Therefore she only got 1 unit and her hemoglobin is stable Patient iron deficient, will start Ferrlecit IV daily 3 days. Continue to monitor hemoglobin daily No acute bleeding noted. Prophylaxis: Off anticoagulation, SCDs, Pepcid for GI prophylaxis. Disposition: Continue volume management, renal function back to normal Follow-up recommendations from general surgery and infectious disease. Problems: Subjective 24 Hr Interval Summary Gastrointestinal: pain Exam/Review of Systems Vital Signs Vitals Vital Signs Date Time Temp Pulse Resp B/P Pulse Ox O2 Delivery O2 Flow Rate FiO2 08/22/17 14:07 97 2.0 08/22/17 13:58 87 20 Nasal Cannula 08/22/17 11:34 98.6 175/90 Intake and Output 08/21/17 08/21/17 08/22/17 15:00 23:00 07:00 Intake Total 50 ml 1960 ml 2000 ml Output Total 1600 ml 2650 ml Balance 50 ml 360 ml -650 ml Exam Constitutional: alert, oriented Respiratory: clear to auscultation Cardiovascular: regular rate and rhythm Gastrointestinal: soft, No distended Musculoskeletal: nl extremities to inspection Results Result Diagram: 08/22/17 0829 08/22/17 0829 Results 24 hrs Laboratory Tests Test 08/22/17 08:29 08/22/17 12:21 White Blood Count 7.5 Red Blood Count 3.26 L Hemoglobin 8.7 L Hematocrit 27.7 L Mean Corpuscular Volume 85.0 Mean Corpuscular Hemoglobin 26.7 L Mean Corpuscular Hemoglobin Concent 31.4 L Red Cell Distribution Width 21.2 H Platelet Count 310 Mean Platelet Volume 9.7 Neutrophils % 68.6 Lymphocytes % 13.0 L Monocytes % 9.9 Eosinophils % 5.5 Basophils % 0.4 Nucleated Red Blood Cells % 0.0 Neutrophils # 5.1 Lymphocytes # 1.0 Monocytes # 0.7 Eosinophils # 0.4 Basophils # 0.0 Nucleated Red Blood Cells # 0.0 Sodium Level 136 Potassium Level 4.4 Chloride Level 93 L Carbon Dioxide Level 34 H Anion Gap 13 Blood Urea Nitrogen 18 Creatinine 0.78 Glucose Level 118 Calcium Level 8.4 Phosphorus Level 5.0 H Magnesium Level 2.1 Total Bilirubin 0.3 Direct Bilirubin 0.00 Indirect Bilirubin 0.3 Aspartate Amino Transf (AST/SGOT) 25 Alanine Aminotransferase (ALT/SGPT) 37 Alkaline Phosphatase 106 Total Protein 5.5 L Albumin 2.6 L Globulin 2.90 Albumin/Globulin Ratio 0.89 Vancomycin Level Trough 9.8 L Medications Medications Current Medications Acetaminophen (Tylenol Tab) 650 mg Q4H PRN PO pain/fever; Start 07/24/17 at 07 :00; Status Future Hold Phenol (Chloraseptic Throat [place]) 2 spray Q2H PRN MT SORE THROAT Last administered on 07/29/17 18:10; Admin Dose 2 SPRAY; Start 07/29/17 at 13:00 Diphenhydramine HCl (Benadryl) 25 mg Q6H PRN IV SLEEP Last administered on 08/01 00:19; Admin Dose 25 MG; Start 07/31/17 at 13:00 Chlorpromazine (Thorazine) 10 mg Q6 PRN IM HICCUPS Last administered on 21:21; Admin Dose 10 MG; Start 08/02/17 at 06:00 Loratadine 10 mg 10 mg DAILY NGT Last administered on 08/22/17 09:36; Admin Dose 10 MG; Start 08/04/17 at 09:00 Meropenem/Sodium Chloride (Merrem 1 Gm/50 ml (Pmx)) 50 ml @ 100 mls/hr Q12 IVPB Last administered on 08/22/17 09:33; Admin Dose 100 MLS/HR; Start at 21:00 Hydralazine HCl (Apresoline) 10 mg Q6H PRN IV sbp>170 Last administered on 14:18; Admin Dose 10 MG; Start 08/07/17 at 18:00 Lisinopril (Zestril) 20 mg DAILY PO Last administered on 08/22/17 10:18; Admin Dose 20 MG; Start 08/10/17 at 10:30 Acetaminophen (Tylenol Tab) 650 mg Q4H PRN PO PAIN AND OR ELEVATED TEMP Last administered on 08/19/17 21:02; Admin Dose 650 MG; Start 08/10/17 at 10:30 Ondansetron HCl (Zofran Inj) 4 mg Q6H PRN IV NAUSEA AND/OR VOMITING Last administered on 08/22/17 09:32; Admin Dose 4 MG; Start 08/12/17 at 13:00 Pantoprazole (Protonix Tab) 40 mg DAILY@06 PO Last administered on 08/22/17 05:30; Admin Dose 40 MG; Start 08/16/17 at 06:00 Metoclopramide HCl 10 mg 10 mg Q6 PRN IV Nausea Last administered on 14:02; Admin Dose 10 MG; Start 08/17/17 at 18:00 Vancomycin HCl (Vancocin) 250 ml @ 125 mls/hr Q24H IVPB Last administered on 08/22/17 14:03; Admin Dose 125 MLS/HR; Start 08/19/17 at 13:00; Stop at 20:00 Nystatin (Nystatin Susp) 5 ml QID PO Last administered on 08/22/17 14:03; Admin Dose 5 ML; Start 08/20/17 at 13:00 Fluconazole 100 mg 100 mg DAILY PO Last administered on 08/22/17 09:37; Admin Dose 100 MG; Start 08/21/17 at 09:00 Ferric Sodium Gluconate Complex/ Sodium Chloride (Ferrlecit/NS) 110 ml @ 100 mls/hr Q24H IVPB Last administered on 08/21/17 16:34; Admin Dose 100 MLS/HR; Start 08/21/17 at 13:00; Stop 08/23/17 at 14:05 Hydromorphone HCl 2 mg 2 mg Q3H PRN PO PAIN Last administered on 08/22/17 14: 02; Admin Dose 2 MG; Start 08/22/17 at 14:30 Vancomycin HCl/ Sodium Chloride (Vancocin/NS) 250 ml @ 83.333 mls/ hr Q24H IVPB ; Start 08/23/17 at 10:00 Amiodarone HCl (Cordarone) 200 mg DAILY PO ; Start 08/23/17 at 09:00; Status UNV Carvedilol (Coreg) 6.25 mg BID PO ; Start 08/22/17 at 21:00; Status UNV Carvedilol (Coreg) 6.25 mg 1414 ONCE PO ; Start 08/22/17 at 14:14; Stop 08/22 at 14:15; Status UNV FINESSE UMAÑA Aug 22, 2017 14:23
--- NOTE | 2017-08-22 16:11 | CONS ---
Date/Time of Note Date/Time of Note DATE: 08/22/17 TIME: 16:10 Assessment/Plan Assessment/Plan Additional Assessment/Plan 1. Oliguric EJ due to ATN from Shock- Multifactorial septic from peritonitis + Hemorrhagic- Improving, making good urine 2. Acute hyperkalemia due to EJ- Resolved 3. Metabolic acidosis with lactic acidosis- Improved much better, 4. acute resp failure, possible Asp PNA vs HCAP - pt remained on ventilator post operatively ,s/p US throacentesis 400 cc removed from left chest on - s/p extubation on 08/09/17 5. Septic shock requiring pressors, now off levophed 6. Status post Left hemicolectomy for sigmoid adenocarcinoma/mass POD#7, s/p total of 4 units pRBC since admission. - again pt underwent Exploratory laparotomy with intra- abdominal abscess drainage, Placement of percutaneous Maurisio drains #19 x2. , Partial colectomy.Formation of end colostomy with Corona's pouch. on 08/05/17 7. Atrial fibrillation 8. Chronic diastolic heart failure with EF 55% 9. Hypocalcemia with hypoalbuminemia 10. Hypernatremia - resolved with D5W Plan: - s/p Bumex gtt with IV albumin 08/13/17- HCo3 improving,Cr normal, good urine output Monitor electrolytes and Replace as needed will continue to follow up along with other subspecialist Consultation Date/Type/Reason Admit Date/Time Jul 24, 2017 at 06:16 Initial Consult Date 08/05/17 Type of Consultation: NEPHROLOGY Referring Provider: RAE CALVO Exam/Review of Systems Vital Signs Vitals Vital Signs Date Time Temp Pulse Resp B/P Pulse Ox O2 Delivery O2 Flow Rate FiO2 08/22/17 16:03 81 08/22/17 15:21 98.3 20 147/93 98 08/22/17 14:07 2.0 08/22/17 13:58 Nasal Cannula Intake and Output 08/21/17 08/21/17 08/22/17 15:00 23:00 07:00 Intake Total 50 ml 1960 ml 2000 ml Output Total 1600 ml 2650 ml Balance 50 ml 360 ml -650 ml Exam GENERAL: alert, awake, No acute distress HEENT: CHANDRAKANT, EOMI CHEST: Rise symmetrical. Breath sounds diminished to bases. HEART: S1, S2. ABDOMEN: Soft, bowel tones present. back swelling + EXTREMITIES: With bilateral edema lower extremities.1+ Results Result Diagram: 08/22/17 0829 08/22/17 0829 Results 24 hrs Laboratory Tests Test 08/22/17 08:29 08/22/17 12:21 White Blood Count 7.5 Red Blood Count 3.26 L Hemoglobin 8.7 L Hematocrit 27.7 L Mean Corpuscular Volume 85.0 Mean Corpuscular Hemoglobin 26.7 L Mean Corpuscular Hemoglobin Concent 31.4 L Red Cell Distribution Width 21.2 H Platelet Count 310 Mean Platelet Volume 9.7 Neutrophils % 68.6 Lymphocytes % 13.0 L Monocytes % 9.9 Eosinophils % 5.5 Basophils % 0.4 Nucleated Red Blood Cells % 0.0 Neutrophils # 5.1 Lymphocytes # 1.0 Monocytes # 0.7 Eosinophils # 0.4 Basophils # 0.0 Nucleated Red Blood Cells # 0.0 Sodium Level 136 Potassium Level 4.4 Chloride Level 93 L Carbon Dioxide Level 34 H Anion Gap 13 Blood Urea Nitrogen 18 Creatinine 0.78 Glucose Level 118 Calcium Level 8.4 Phosphorus Level 5.0 H Magnesium Level 2.1 Total Bilirubin 0.3 Direct Bilirubin 0.00 Indirect Bilirubin 0.3 Aspartate Amino Transf (AST/SGOT) 25 Alanine Aminotransferase (ALT/SGPT) 37 Alkaline Phosphatase 106 Total Protein 5.5 L Albumin 2.6 L Globulin 2.90 Albumin/Globulin Ratio 0.89 Vancomycin Level Trough 9.8 L Medications Medications Current Medications Acetaminophen (Tylenol Tab) 650 mg Q4H PRN PO pain/fever; Start 07/24/17 at 07 :00; Status Future Hold Phenol (Chloraseptic Throat [place]) 2 spray Q2H PRN MT SORE THROAT Last administered on 07/29/17 18:10; Admin Dose 2 SPRAY; Start 07/29/17 at 13:00 Diphenhydramine HCl (Benadryl) 25 mg Q6H PRN IV SLEEP Last administered on 08/01 00:19; Admin Dose 25 MG; Start 07/31/17 at 13:00 Chlorpromazine (Thorazine) 10 mg Q6 PRN IM HICCUPS Last administered on 21:21; Admin Dose 10 MG; Start 08/02/17 at 06:00 Loratadine 10 mg 10 mg DAILY NGT Last administered on 08/22/17 09:36; Admin Dose 10 MG; Start 08/04/17 at 09:00 Meropenem/Sodium Chloride (Merrem 1 Gm/50 ml (Pmx)) 50 ml @ 100 mls/hr Q12 IVPB Last administered on 08/22/17 09:33; Admin Dose 100 MLS/HR; Start at 21:00 Hydralazine HCl (Apresoline) 10 mg Q6H PRN IV sbp>170 Last administered on 14:18; Admin Dose 10 MG; Start 08/07/17 at 18:00 Lisinopril (Zestril) 20 mg DAILY PO Last administered on 08/22/17 10:18; Admin Dose 20 MG; Start 08/10/17 at 10:30 Acetaminophen (Tylenol Tab) 650 mg Q4H PRN PO PAIN AND OR ELEVATED TEMP Last administered on 08/19/17 21:02; Admin Dose 650 MG; Start 08/10/17 at 10:30 Ondansetron HCl (Zofran Inj) 4 mg Q6H PRN IV NAUSEA AND/OR VOMITING Last administered on 08/22/17 09:32; Admin Dose 4 MG; Start 08/12/17 at 13:00 Pantoprazole (Protonix Tab) 40 mg DAILY@06 PO Last administered on 08/22/17 05:30; Admin Dose 40 MG; Start 08/16/17 at 06:00 Metoclopramide HCl 10 mg 10 mg Q6 PRN IV Nausea Last administered on 14:02; Admin Dose 10 MG; Start 08/17/17 at 18:00 Vancomycin HCl (Vancocin) 250 ml @ 125 mls/hr Q24H IVPB Last administered on 08/22/17 14:03; Admin Dose 125 MLS/HR; Start 08/19/17 at 13:00; Stop at 20:00 Nystatin (Nystatin Susp) 5 ml QID PO Last administered on 08/22/17 14:03; Admin Dose 5 ML; Start 08/20/17 at 13:00 Fluconazole 100 mg 100 mg DAILY PO Last administered on 08/22/17 09:37; Admin Dose 100 MG; Start 08/21/17 at 09:00 Ferric Sodium Gluconate Complex/ Sodium Chloride (Ferrlecit/NS) 110 ml @ 100 mls/hr Q24H IVPB Last administered on 08/21/17 16:34; Admin Dose 100 MLS/HR; Start 08/21/17 at 13:00; Stop 08/23/17 at 14:05 Hydromorphone HCl 2 mg 2 mg Q3H PRN PO PAIN Last administered on 08/22/17 14: 02; Admin Dose 2 MG; Start 08/22/17 at 14:30 Vancomycin HCl/ Sodium Chloride (Vancocin/NS) 250 ml @ 83.333 mls/ hr Q24H IVPB ; Start 08/23/17 at 10:00 Amiodarone HCl (Cordarone) 200 mg DAILY PO ; Start 08/23/17 at 09:00 Carvedilol (Coreg) 6.25 mg BID PO ; Start 08/22/17 at 21:00 MEKA ROBERTSON MD Aug 22, 2017 16:11
[2017-08-22] MEDS: SOD FERRIC GLUC COMPLX 125 MG in SOD CHLORIDE 0.9% 100 ML IVPB SCH (16:20)
--- NOTE | 2017-08-22 16:31 | RADRPT ---
PROCEDURE: XR Chest. CLINICAL INDICATION: Chest pain, shortness of breath TECHNIQUE: A frontal view of the chest was performed. COMPARISON: March 10, 2014 FINDINGS: Borderline cardiomegaly and mild vascular congestion are present. No signs of pleural fluid or pneum othorax are seen. The osseous structures and soft tissues are unremarkable. IMPRESSION: Borderline cardiomegaly, and mild vascular congestion. RPTAT: QQ .Shelley Wallace MD, MD Date Time Electronically viewed and signed by .Shelley Wallace MD, MD on 08/22/2017 16:31 .F/
[2017-08-22] MEDS ORDERED: VITAMIN A & D 5 GM OINT PACKET TOP ONE (18:01)
[2017-08-23] MEDS: HYDROmorphONE 2 MG TAB PO PRN ×6 (01:52→23:30)
[2017-08-23 02:00] VITALS: BP 144/73; RESP 18
[2017-08-23 05:18] LABS: BASOPHILS % 0.5 % (0.0-2.0); EOSINOPHILS # 0.5 10^3/ul (0.0-0.5); EOSINOPHILS % 5.8 % (0.0-7.0); HEMATOCRIT 26.6 % (37.0-47.0); HEMOGLOBIN 8.5 g/dl (12.0-16.0); LYMPHOCYTES # 1.3 10^3/ul (0.8-2.9); LYMPHOCYTES % 15.8 % (15.0-51.0); MEAN CORPUSCULAR VOLUME 84.4 fl (82.0-101.0); MEAN PLATELET VOLUME 9.6 fl (7.4-10.4); MONOCYTE # 0.9 10^3/ul (0.3-0.9); MONOCYTES % 10.5 % (0.0-11.0); NEUTROPHIL # 5.4 10^3/ul (1.6-7.5); NEUTROPHILS % 64.5 % (39.0-77.0); PLATELET COUNT 306 10^3/UL (140-415); RED BLOOD COUNT 3.15 10^6/ul (4.20-5.40); WHITE BLOOD COUNT 8.3 10^3/ul (4.8-10.8)
[2017-08-23 05:51] LABS: CALCIUM 8.6 mg/dl (8.4-10.2); CREATININE 0.73 mg/dl (0.44-1.00); POTASSIUM 4.5 mmol/L (3.5-5.1)
[2017-08-23] MEDS: PANTOPRAZOLE (EC) 40 MG TAB PO SCH (06:44)
[2017-08-23 08:06] VITALS: BP 136/72; RESP 20
[2017-08-23] MEDS: MEROPENEM 1 GM/50ML(PMX) 50 ML IVPB SCH (08:27)
[2017-08-23] MEDS: NYSTATIN SUSP 5 ML CUP PO SCH ×4 (08:31→20:34)
[2017-08-23] MEDS: LISINOPRIL 20 MG TAB PO SCH (08:32)
[2017-08-23] MEDS: LORATADINE 10 MG TAB NGT SCH (08:32)
[2017-08-23] MEDS: FLUCONAZOLE 100 MG TAB PO SCH (08:32)
[2017-08-23] MEDS: AMIODARONE 200 MG TAB PO SCH (08:33)
[2017-08-23] MEDS: ONDANSETRON 4 MG INJ IV PRN ×2 (08:51→15:25)
[2017-08-23] MEDS ORDERED: VANCOMYCIN 1.25 GM in SOD CHLORIDE 0.9% 250 ML IVPB SCH (10:00)
[2017-08-23] MEDS: METOCLOPRAMIDE 10 MG INJ IV PRN (10:46)
--- NOTE | 2017-08-23 12:27 | CONS ---
Date/Time of Note Date/Time of Note DATE: 08/23/17 TIME: 12:01 Assessment/Plan Assessment/Plan Chief Complaint/Hosp Course ID PROGRESS NOTE CURRENT ABX: DAY # =>Vanco IV #20 + Merrem #18 + Diflucan 08/23/17 0434 08/23/17 0434 24H INTERVAL SUMMARY * A/A/O -> afebrile today -- TMax 99.8 yesterday, VSS, NAD; TNS out of Tele to Med-Surg last night * O2 via NC, without dyspnea * 08/22/17 CXR: Mild congestion * 08/15/17: BODY FLUID CULTURE Final Organism 1 ENTEROBACTER CLOACAE COMPLEX QUANTITY SCANT GROWTH Organism 2 METHICILLIN RESISTANT S.AUREUS QUANTITY SCANT GROWTH . MULTI DRUG RESISTANT ORGANISM Organism 3 ENTEROCOCCUS SPECIES QUANTITY SCANT GROWTH PHYSICAL EXAMINATION: GENERAL: VSS, afebrile, NAD HEENT: Unremarkable NECK: Supple, trach midline CHEST: Equal chest rise bilaterally, without dyspnea on observation HEART: RRR ABDOMEN: Soft, DSG intact/ colostomy : FC, clear yellow urine EXT: Warm, BLEXT edema SKIN: No rash, no diaphoresis ID ASSESSMENT: 51 yo Obese F admit VPH: 1. SIRS with low grade temps, leukocytosis resolved * Status post septic shock. 2. Status post respiratory failure. 3. Colon cancer, status post resection with primary anastomosis complicated by anastomotic leak * s/p exploratory laparotomy and drainage of abscesses, partial colectomy with colostomy on 08/05/2017. 4. CHF mixed systolic/diastolic * Left pleural effusion, status post thoracentesis. 5. Atrial fibrillation - Amiodarone onboard 6. Anemia. 7. Oliguric EJ due to ATN from Shock 8. Oral candidiasis/thrush (-)MRSA ABX ALLERGIES: PCN/Sulfa INVASIVES: [id number], FC CURRENT ABX: =>Vanco IV + Merrem + Diflucan ID RECOMMENDATIONS/PLAN: 1. Continue current ABX over the weekend -> Will check w/primary & consultants - - DC ABX? 2. ID team consultants will continue to follow . Problems: Consultation Date/Type/Reason Admit Date/Time Jul 24, 2017 at 06:16 Initial Consult Date 08/05/17 Type of Consultation: ID Referring Provider: RAE CALVO Exam/Review of Systems Vital Signs Vitals Vital Signs Date Time Temp Pulse Resp B/P Pulse Ox O2 Delivery O2 Flow Rate FiO2 08/23/17 10:17 2.0 08/23/17 08:06 98.9 79 20 136/72 97 08/22/17 20:00 Nasal Cannula Intake and Output 08/22/17 08/22/17 08/23/17 15:00 23:00 07:00 Intake Total 300 ml 410 ml 1440 ml Output Total 2390 ml Balance 300 ml 410 ml -950 ml Results Result Diagram: 08/23/17 0434 08/23/17 0434 Results 24 hrs Laboratory Tests Test 08/22/17 12:21 08/23/17 04:34 Vancomycin Level Trough 9.8 L White Blood Count 8.3 Red Blood Count 3.15 L Hemoglobin 8.5 L Hematocrit 26.6 L Mean Corpuscular Volume 84.4 Mean Corpuscular Hemoglobin 27.0 L Mean Corpuscular Hemoglobin Concent 32.0 Red Cell Distribution Width 21.0 H Platelet Count 306 Mean Platelet Volume 9.6 Neutrophils % 64.5 Lymphocytes % 15.8 Monocytes % 10.5 Eosinophils % 5.8 Basophils % 0.5 Nucleated Red Blood Cells % 0.0 Neutrophils # 5.4 Lymphocytes # 1.3 Monocytes # 0.9 Eosinophils # 0.5 Basophils # 0.0 Nucleated Red Blood Cells # 0.0 Sodium Level 136 Potassium Level 4.5 Chloride Level 95 L Carbon Dioxide Level 37 H Anion Gap 9 Blood Urea Nitrogen 17 Creatinine 0.73 Glucose Level 100 Calcium Level 8.6 Magnesium Level 2.0 Medications Medications Current Medications Acetaminophen (Tylenol Tab) 650 mg Q4H PRN PO pain/fever; Start 07/24/17 at 07 :00; Status Future Hold Phenol (Chloraseptic Throat [place]) 2 spray Q2H PRN MT SORE THROAT Last administered on 07/29/17 18:10; Admin Dose 2 SPRAY; Start 07/29/17 at 13:00 Diphenhydramine HCl (Benadryl) 25 mg Q6H PRN IV SLEEP Last administered on 08/01 00:19; Admin Dose 25 MG; Start 07/31/17 at 13:00 Chlorpromazine (Thorazine) 10 mg Q6 PRN IM HICCUPS Last administered on 21:21; Admin Dose 10 MG; Start 08/02/17 at 06:00 Loratadine 10 mg 10 mg DAILY NGT Last administered on 08/23/17 08:32; Admin Dose 10 MG; Start 08/04/17 at 09:00 Meropenem/Sodium Chloride (Merrem 1 Gm/50 ml (Pmx)) 50 ml @ 100 mls/hr Q12 IVPB Last administered on 08/23/17 08:27; Admin Dose 100 MLS/HR; Start at 21:00 Hydralazine HCl (Apresoline) 10 mg Q6H PRN IV sbp>170 Last administered on 14:18; Admin Dose 10 MG; Start 08/07/17 at 18:00 Lisinopril (Zestril) 20 mg DAILY PO Last administered on 08/23/17 08:32; Admin Dose 20 MG; Start 08/10/17 at 10:30 Acetaminophen (Tylenol Tab) 650 mg Q4H PRN PO PAIN AND OR ELEVATED TEMP Last administered on 08/19/17 21:02; Admin Dose 650 MG; Start 08/10/17 at 10:30 Ondansetron HCl (Zofran Inj) 4 mg Q6H PRN IV NAUSEA AND/OR VOMITING Last administered on 08/23/17 08:51; Admin Dose 4 MG; Start 08/12/17 at 13:00 Pantoprazole (Protonix Tab) 40 mg DAILY@06 PO Last administered on 08/23/17 06:44; Admin Dose 40 MG; Start 08/16/17 at 06:00 Metoclopramide HCl (Reglan) 10 mg Q6 PRN IV Nausea Last administered on 10:46; Admin Dose 10 MG; Start 08/17/17 at 18:00 Nystatin (Nystatin Susp) 5 ml QID PO Last administered on 08/23/17 08:31; Admin Dose 5 ML; Start 08/20/17 at 13:00 Fluconazole 100 mg 100 mg DAILY PO Last administered on 08/23/17 08:32; Admin Dose 100 MG; Start 08/21/17 at 09:00 Ferric Sodium Gluconate Complex/ Sodium Chloride (Ferrlecit/NS) 110 ml @ 100 mls/hr Q24H IVPB Last administered on 08/22/17 16:20; Admin Dose 100 MLS/HR; Start 08/21/17 at 13:00; Stop 08/23/17 at 14:05 Hydromorphone HCl 2 mg 2 mg Q3H PRN PO PAIN Last administered on 08/23/17 08: 30; Admin Dose 2 MG; Start 08/22/17 at 14:30 Vancomycin HCl/ Sodium Chloride (Vancocin/NS) 250 ml @ 83.333 mls/ hr Q24H IVPB Last administered on 08/23/17 10:44; Admin Dose 83.333 MLS/HR; Start at 10:00 Amiodarone HCl (Cordarone) 200 mg DAILY PO Last administered on 08/23/17 08: 33; Admin Dose 200 MG; Start 08/23/17 at 09:00 Carvedilol (Coreg) 6.25 mg BID PO Last administered on 08/23/17 08:33; Admin Dose 6.25 MG; Start 08/22/17 at 21:00 HARPER TORRES NP Aug 23, 2017 12:13
--- NOTE | 2017-08-23 12:56 | CONS ---
Date/Time of Note Date/Time of Note DATE: 08/23/17 TIME: 12:55 Assessment/Plan Assessment/Plan Additional Assessment/Plan Paroxysmal atrial fibrillation, currently sinus Acute decompensated systolic and diastolic congestive heart failure Low normal ejection fraction 50% Colon mass status post colon surgery July 26, 2017 and repeat August 05, 2017 Acute kidney injury, improved Sepsis Vent dependent respiratory failure, status post extubation -Patient remains in sinus rhythm, amiodarone decreased to daily and Coreg dose increased and blood pressure has improved. Ideally maintain potassium above 4.0 and magnesium above 2.0. Diuretics as per our nephrology colleagues. Restart anticoagulation when okay by our surgery colleagues. Consultation Date/Type/Reason Admit Date/Time Jul 24, 2017 at 06:16 Initial Consult Date 07/29/17 Type of Consultation: cv Referring Provider: RAE CALVO 24 HR Interval Summary Free Text/Dictation Denies shortness of breath, palpitations or dizziness, feeling better Exam/Review of Systems Vital Signs Vitals Vital Signs Date Time Temp Pulse Resp B/P Pulse Ox O2 Delivery O2 Flow Rate FiO2 08/23/17 10:17 2.0 08/23/17 09:00 Nasal Cannula 08/23/17 08:06 98.9 79 20 136/72 97 Intake and Output 08/22/17 08/22/17 08/23/17 14:59 22:59 06:59 Intake Total 300 ml 410 ml 1440 ml Output Total 2390 ml Balance 300 ml 410 ml -950 ml Exam No apparent distress Constitutional: alert, obese, oriented Head: normocephalic Respiratory: other (Coarse breath sounds bilaterally, no wheezing) Cardiovascular: other (S1-S2 heard), regular rate and rhythm Gastrointestinal: bowel sounds, non-tender, soft Extremities: edema Results Result Diagram: 08/23/17 0434 08/23/17 0434 Results 24 hrs Laboratory Tests Test 08/23/17 04:34 White Blood Count 8.3 Red Blood Count 3.15 L Hemoglobin 8.5 L Hematocrit 26.6 L Mean Corpuscular Volume 84.4 Mean Corpuscular Hemoglobin 27.0 L Mean Corpuscular Hemoglobin Concent 32.0 Red Cell Distribution Width 21.0 H Platelet Count 306 Mean Platelet Volume 9.6 Neutrophils % 64.5 Lymphocytes % 15.8 Monocytes % 10.5 Eosinophils % 5.8 Basophils % 0.5 Nucleated Red Blood Cells % 0.0 Neutrophils # 5.4 Lymphocytes # 1.3 Monocytes # 0.9 Eosinophils # 0.5 Basophils # 0.0 Nucleated Red Blood Cells # 0.0 Sodium Level 136 Potassium Level 4.5 Chloride Level 95 L Carbon Dioxide Level 37 H Anion Gap 9 Blood Urea Nitrogen 17 Creatinine 0.73 Glucose Level 100 Calcium Level 8.6 Magnesium Level 2.0 Medications Medications Current Medications Acetaminophen (Tylenol Tab) 650 mg Q4H PRN PO pain/fever; Start 07/24/17 at 07 :00; Status Future Hold Phenol (Chloraseptic Throat [place]) 2 spray Q2H PRN MT SORE THROAT Last administered on 07/29/17 18:10; Admin Dose 2 SPRAY; Start 07/29/17 at 13:00 Diphenhydramine HCl (Benadryl) 25 mg Q6H PRN IV SLEEP Last administered on 08/01 00:19; Admin Dose 25 MG; Start 07/31/17 at 13:00 Chlorpromazine (Thorazine) 10 mg Q6 PRN IM HICCUPS Last administered on 21:21; Admin Dose 10 MG; Start 08/02/17 at 06:00 Loratadine 10 mg 10 mg DAILY NGT Last administered on 08/23/17 08:32; Admin Dose 10 MG; Start 08/04/17 at 09:00 Meropenem/Sodium Chloride (Merrem 1 Gm/50 ml (Pmx)) 50 ml @ 100 mls/hr Q12 IVPB Last administered on 08/23/17 08:27; Admin Dose 100 MLS/HR; Start at 21:00 Hydralazine HCl (Apresoline) 10 mg Q6H PRN IV sbp>170 Last administered on 14:18; Admin Dose 10 MG; Start 08/07/17 at 18:00 Lisinopril (Zestril) 20 mg DAILY PO Last administered on 08/23/17 08:32; Admin Dose 20 MG; Start 08/10/17 at 10:30 Acetaminophen (Tylenol Tab) 650 mg Q4H PRN PO PAIN AND OR ELEVATED TEMP Last administered on 08/19/17 21:02; Admin Dose 650 MG; Start 08/10/17 at 10:30 Ondansetron HCl (Zofran Inj) 4 mg Q6H PRN IV NAUSEA AND/OR VOMITING Last administered on 08/23/17 08:51; Admin Dose 4 MG; Start 08/12/17 at 13:00 Pantoprazole (Protonix Tab) 40 mg DAILY@06 PO Last administered on 08/23/17 06:44; Admin Dose 40 MG; Start 08/16/17 at 06:00 Metoclopramide HCl (Reglan) 10 mg Q6 PRN IV Nausea Last administered on 10:46; Admin Dose 10 MG; Start 08/17/17 at 18:00 Nystatin (Nystatin Susp) 5 ml QID PO Last administered on 08/23/17 12:21; Admin Dose 5 ML; Start 08/20/17 at 13:00 Fluconazole 100 mg 100 mg DAILY PO Last administered on 08/23/17 08:32; Admin Dose 100 MG; Start 08/21/17 at 09:00 Ferric Sodium Gluconate Complex/ Sodium Chloride (Ferrlecit/NS) 110 ml @ 100 mls/hr Q24H IVPB Last administered on 08/22/17 16:20; Admin Dose 100 MLS/HR; Start 08/21/17 at 13:00; Stop 08/23/17 at 14:05 Hydromorphone HCl 2 mg 2 mg Q3H PRN PO PAIN Last administered on 08/23/17 12: 21; Admin Dose 2 MG; Start 08/22/17 at 14:30 Vancomycin HCl/ Sodium Chloride (Vancocin/NS) 250 ml @ 83.333 mls/ hr Q24H IVPB Last administered on 08/23/17 10:44; Admin Dose 83.333 MLS/HR; Start at 10:00 Amiodarone HCl (Cordarone) 200 mg DAILY PO Last administered on 08/23/17 08: 33; Admin Dose 200 MG; Start 08/23/17 at 09:00 Carvedilol (Coreg) 6.25 mg BID PO Last administered on 08/23/17 08:33; Admin Dose 6.25 MG; Start 08/22/17 at 21:00 Fercho Mojica DO Aug 23, 2017 12:56
--- NOTE | 2017-08-23 13:48 | PN ---
Date/Time of Note Date/Time of Note DATE: 08/23/ TIME: 13:46 Assessment/Plan VTE Prophylaxis VTE Prophylaxis Intervention: SCD's Assessment/Plan Chief Complaint/Hosp Course 1. Postop anastomotic leak with sepsis, status post ex lap with drainage of abscesses, drain placement, partial colectomy and colostomy POD#17 Status post Left hemicolectomy for sigmoid adenocarcinoma/mass POD#25 Intraoperative/intraperitoneal cultures positive for E. coli, enterococcus, staph aureus. VITA drain culture sent recently with enterococcus, Enterobacter cloacae and staph aureus. Patient still on appropriate antibiotics based on previous cultures and most recent cultures, leukocytosis improving except for ongoing bandemia. She remains afebrile Follow-up infectious disease recommendations regarding choices of antibiotics and length of treatment based on current data. Per latest discussion with infectious disease patient may need a prolonged course due to deep intra- abdominal infection postoperatively/abscesses. This would mean the patient may need to complete up to 4 weeks of antibiotics, she has been on antibiotics for the past couple of weeks already. Midline in place Patient on regular diet. Encourage physical therapy and out of bed to chair at least. Will increase Dilaudid to p.o. to 2 mg She will need custodial facility placement at time of discharge 2. Thrush, oral candidiasis, slowly improving, continue nystatin qid and Diflucan p.o. 3. S/p Acute respiratory failure, postoperatively secondary to volume overload. Status post diuresis with Bumex drip and scheduled Bumex. Much improved volume status and off Bumex currently. Appreciate recommendations from nephrology and pulmonary. 4. Atrial fibrillation, chronic, maintaining sinus rhythm, s/p 1 unit pRBC transfusion Replete potassium and magnesium as needed Keep electrolytes within normal. Continue low-dose amiodarone p.o. also back on carvedilol Appreciate cardiology recommendations. Anticoagulation discontinued for now, per cardiology okay to resume once okay per general surgery [facility] to [facility] 5. Chronic congestive heart failure, chronic diastolic dysfunction and ejection fraction of 55% on latest outpatient echocardiogram in January 2017 and confirmed to be 50% on this admission. Status post CHF exacerbation, better volume status. Current diuresis with Bumex as needed 6. Acute kidney injury, in setting of sepsis, also had the contrast studies 2. Resolved, renal function back to normal. Leal catheter in place. Adequate urine output, patient off fluids, Bumex as needed, will plan on giving today with packed red blood cell transfusion. Follow-up recommendations from nephrology, Dr. Kiser 7. Anemia, acute on chronic, postop: Hemoglobin was down to 7.5, patient apparently had a reaction during blood transfusion when she became febrile with some chills after 1 unit of packed red blood cells. Therefore she only got 1 unit and her hemoglobin is stable Patient iron deficient, will start Ferrlecit IV daily 3 days. Continue to monitor hemoglobin daily No acute bleeding noted. Prophylaxis: Off anticoagulation, SCDs, Pepcid for GI prophylaxis. Disposition: Anticipate DC to rehab facility in next 1-2 days Problems: Subjective 24 Hr Interval Summary Constitutional: no complaints Exam/Review of Systems Vital Signs Vitals Vital Signs Date Time Temp Pulse Resp B/P Pulse Ox O2 Delivery O2 Flow Rate FiO2 08/23/17 10:17 2.0 08/23/17 09:00 Nasal Cannula 08/23/17 08:06 98.9 79 20 136/72 97 Intake and Output 08/22/17 08/22/17 08/23/17 15:00 23:00 07:00 Intake Total 300 ml 410 ml 1440 ml Output Total 2390 ml Balance 300 ml 410 ml -950 ml Exam Constitutional: alert Respiratory: clear to auscultation Cardiovascular: regular rate and rhythm Gastrointestinal: soft, No distended Musculoskeletal: nl extremities to inspection Results Result Diagram: 08/23/17 0434 08/23/17 0434 Results 24 hrs Laboratory Tests Test 08/23/17 04:34 White Blood Count 8.3 Red Blood Count 3.15 L Hemoglobin 8.5 L Hematocrit 26.6 L Mean Corpuscular Volume 84.4 Mean Corpuscular Hemoglobin 27.0 L Mean Corpuscular Hemoglobin Concent 32.0 Red Cell Distribution Width 21.0 H Platelet Count 306 Mean Platelet Volume 9.6 Neutrophils % 64.5 Lymphocytes % 15.8 Monocytes % 10.5 Eosinophils % 5.8 Basophils % 0.5 Nucleated Red Blood Cells % 0.0 Neutrophils # 5.4 Lymphocytes # 1.3 Monocytes # 0.9 Eosinophils # 0.5 Basophils # 0.0 Nucleated Red Blood Cells # 0.0 Sodium Level 136 Potassium Level 4.5 Chloride Level 95 L Carbon Dioxide Level 37 H Anion Gap 9 Blood Urea Nitrogen 17 Creatinine 0.73 Glucose Level 100 Calcium Level 8.6 Magnesium Level 2.0 Medications Medications Current Medications Acetaminophen (Tylenol Tab) 650 mg Q4H PRN PO pain/fever; Start 07/24/17 at 07 :00; Status Future Hold Phenol (Chloraseptic Throat [place]) 2 spray Q2H PRN MT SORE THROAT Last administered on 07/29/17 18:10; Admin Dose 2 SPRAY; Start 07/29/17 at 13:00 Diphenhydramine HCl (Benadryl) 25 mg Q6H PRN IV SLEEP Last administered on 08/01 00:19; Admin Dose 25 MG; Start 07/31/17 at 13:00 Chlorpromazine (Thorazine) 10 mg Q6 PRN IM HICCUPS Last administered on 21:21; Admin Dose 10 MG; Start 08/02/17 at 06:00 Loratadine 10 mg 10 mg DAILY NGT Last administered on 08/23/17 08:32; Admin Dose 10 MG; Start 08/04/17 at 09:00 Meropenem/Sodium Chloride (Merrem 1 Gm/50 ml (Pmx)) 50 ml @ 100 mls/hr Q12 IVPB Last administered on 08/23/17 08:27; Admin Dose 100 MLS/HR; Start at 21:00 Hydralazine HCl (Apresoline) 10 mg Q6H PRN IV sbp>170 Last administered on 14:18; Admin Dose 10 MG; Start 08/07/17 at 18:00 Lisinopril (Zestril) 20 mg DAILY PO Last administered on 08/23/17 08:32; Admin Dose 20 MG; Start 08/10/17 at 10:30 Acetaminophen (Tylenol Tab) 650 mg Q4H PRN PO PAIN AND OR ELEVATED TEMP Last administered on 08/19/17 21:02; Admin Dose 650 MG; Start 08/10/17 at 10:30 Ondansetron HCl (Zofran Inj) 4 mg Q6H PRN IV NAUSEA AND/OR VOMITING Last administered on 08/23/17 08:51; Admin Dose 4 MG; Start 08/12/17 at 13:00 Pantoprazole (Protonix Tab) 40 mg DAILY@06 PO Last administered on 08/23/17 06:44; Admin Dose 40 MG; Start 08/16/17 at 06:00 Metoclopramide HCl (Reglan) 10 mg Q6 PRN IV Nausea Last administered on 10:46; Admin Dose 10 MG; Start 08/17/17 at 18:00 Nystatin (Nystatin Susp) 5 ml QID PO Last administered on 08/23/17 12:21; Admin Dose 5 ML; Start 08/20/17 at 13:00 Fluconazole 100 mg 100 mg DAILY PO Last administered on 08/23/17 08:32; Admin Dose 100 MG; Start 08/21/17 at 09:00 Ferric Sodium Gluconate Complex/ Sodium Chloride (Ferrlecit/NS) 110 ml @ 100 mls/hr Q24H IVPB Last administered on 08/22/17 16:20; Admin Dose 100 MLS/HR; Start 08/21/17 at 13:00; Stop 08/23/17 at 14:05 Hydromorphone HCl 2 mg 2 mg Q3H PRN PO PAIN Last administered on 08/23/17 12: 21; Admin Dose 2 MG; Start 08/22/17 at 14:30 Vancomycin HCl/ Sodium Chloride (Vancocin/NS) 250 ml @ 83.333 mls/ hr Q24H IVPB Last administered on 08/23/17 10:44; Admin Dose 83.333 MLS/HR; Start at 10:00 Amiodarone HCl (Cordarone) 200 mg DAILY PO Last administered on 08/23/17 08: 33; Admin Dose 200 MG; Start 08/23/17 at 09:00 Carvedilol (Coreg) 6.25 mg BID PO Last administered on 08/23/17 08:33; Admin Dose 6.25 MG; Start 08/22/17 at 21:00 FINESSE UMAÑA Aug 23, 2017 13:48
[2017-08-23] MEDS: SOD FERRIC GLUC COMPLX 125 MG in SOD CHLORIDE 0.9% 100 ML IVPB SCH (15:24)
[2017-08-23 16:54] VITALS: BP 131/74; RESP 18
[2017-08-23 20:01] VITALS: BP 156/89; RESP 20
[2017-08-23] MEDS: LEVALBUTEROL (NEB) 0.63 MG/3 ML AMP HHN PRN (21:04)
--- NOTE | 2017-08-23 22:43 | CONS ---
Date/Time of Note Date/Time of Note DATE: 08/23/17 TIME: 22:42 Assessment/Plan Assessment/Plan Additional Assessment/Plan 1. Oliguric EJ due to ATN from Shock- Multifactorial septic from peritonitis + Hemorrhagic- Improving, making good urine 2. Acute hyperkalemia due to EJ- Resolved 3. Metabolic acidosis with lactic acidosis- Improved much better, 4. acute resp failure, possible Asp PNA vs HCAP - pt remained on ventilator post operatively ,s/p US throacentesis 400 cc removed from left chest on - s/p extubation on 08/09/17 5. Septic shock requiring pressors, now off levophed 6. Status post Left hemicolectomy for sigmoid adenocarcinoma/mass POD#7, s/p total of 4 units pRBC since admission. - again pt underwent Exploratory laparotomy with intra- abdominal abscess drainage, Placement of percutaneous Maurisio drains #19 x2. , Partial colectomy.Formation of end colostomy with Corona's pouch. on 08/05/17 7. Atrial fibrillation 8. Chronic diastolic heart failure with EF 55% 9. Hypocalcemia with hypoalbuminemia 10. Hypernatremia - resolved with D5W Plan: - s/p Bumex gtt with IV albumin 08/13/17- HCo3 improving,Cr normal, good urine output Monitor electrolytes and Replace as needed will continue to follow up along with other subspecialist Consultation Date/Type/Reason Admit Date/Time Jul 24, 2017 at 06:16 Initial Consult Date 08/05/17 Type of Consultation: NEPHROLOGY Referring Provider: RAE CALVO 24 HR Interval Summary Free Text/Dictation Cr normal HCo3 37, BP stable Exam/Review of Systems Vital Signs Vitals Vital Signs Date Time Temp Pulse Resp B/P Pulse Ox O2 Delivery O2 Flow Rate FiO2 08/23/17 21:04 76 24 100 Nasal Cannula 3.0 08/23/17 20:01 98.8 156/89 Intake and Output 08/22/17 08/22/17 08/23/17 14:59 22:59 06:59 Intake Total 300 ml 410 ml 1440 ml Output Total 2390 ml Balance 300 ml 410 ml -950 ml Exam GENERAL: alert, awake, No acute distress HEENT: [place], EOMI CHEST: Rise symmetrical. Breath sounds diminished to bases. HEART: S1, S2. ABDOMEN: Soft, bowel tones present. back swelling + EXTREMITIES: With bilateral edema lower extremities.1 Results Result Diagram: 08/23/17 0434 08/23/17 0434 Results 24 hrs Laboratory Tests Test 08/23/17 04:34 White Blood Count 8.3 Red Blood Count 3.15 L Hemoglobin 8.5 L Hematocrit 26.6 L Mean Corpuscular Volume 84.4 Mean Corpuscular Hemoglobin 27.0 L Mean Corpuscular Hemoglobin Concent 32.0 Red Cell Distribution Width 21.0 H Platelet Count 306 Mean Platelet Volume 9.6 Neutrophils % 64.5 Lymphocytes % 15.8 Monocytes % 10.5 Eosinophils % 5.8 Basophils % 0.5 Nucleated Red Blood Cells % 0.0 Neutrophils # 5.4 Lymphocytes # 1.3 Monocytes # 0.9 Eosinophils # 0.5 Basophils # 0.0 Nucleated Red Blood Cells # 0.0 Sodium Level 136 Potassium Level 4.5 Chloride Level 95 L Carbon Dioxide Level 37 H Anion Gap 9 Blood Urea Nitrogen 17 Creatinine 0.73 Glucose Level 100 Calcium Level 8.6 Magnesium Level 2.0 Medications Medications Current Medications Acetaminophen (Tylenol Tab) 650 mg Q4H PRN PO pain/fever; Start 07/24/17 at 07 :00; Status Future Hold Phenol (Chloraseptic Throat [place]) 2 spray Q2H PRN MT SORE THROAT Last administered on 07/29/17 18:10; Admin Dose 2 SPRAY; Start 07/29/17 at 13:00 Diphenhydramine HCl (Benadryl) 25 mg Q6H PRN IV SLEEP Last administered on 08/01 00:19; Admin Dose 25 MG; Start 07/31/17 at 13:00 Chlorpromazine (Thorazine) 10 mg Q6 PRN IM HICCUPS Last administered on 21:21; Admin Dose 10 MG; Start 08/02/17 at 06:00 Loratadine (Claritin) 10 mg DAILY NGT Last administered on 08/23/17 08:32; Admin Dose 10 MG; Start 08/04/17 at 09:00 Hydralazine HCl (Apresoline) 10 mg Q6H PRN IV sbp>170 Last administered on 14:18; Admin Dose 10 MG; Start 08/07/17 at 18:00 Lisinopril (Zestril) 20 mg DAILY PO Last administered on 08/23/17 08:32; Admin Dose 20 MG; Start 08/10/17 at 10:30 Acetaminophen (Tylenol Tab) 650 mg Q4H PRN PO PAIN AND OR ELEVATED TEMP Last administered on 08/19/17 21:02; Admin Dose 650 MG; Start 08/10/17 at 10:30 Ondansetron HCl (Zofran Inj) 4 mg Q6H PRN IV NAUSEA AND/OR VOMITING Last administered on 08/23/17 15:25; Admin Dose 4 MG; Start 08/12/17 at 13:00 Pantoprazole (Protonix Tab) 40 mg DAILY@06 PO Last administered on 08/23/17 06:44; Admin Dose 40 MG; Start 08/16/17 at 06:00 Metoclopramide HCl (Reglan) 10 mg Q6 PRN IV Nausea Last administered on 10:46; Admin Dose 10 MG; Start 08/17/17 at 18:00 Nystatin (Nystatin Susp) 5 ml QID PO Last administered on 08/23/17 20:34; Admin Dose 5 ML; Start 08/20/17 at 13:00 Fluconazole (Diflucan) 100 mg DAILY PO Last administered on 08/23/17 08:32; Admin Dose 100 MG; Start 08/21/17 at 09:00 Hydromorphone HCl (Dilaudid) 2 mg Q3H PRN PO PAIN Last administered on 20:34; Admin Dose 2 MG; Start 08/22/17 at 14:30 Amiodarone HCl (Cordarone) 200 mg DAILY PO Last administered on 08/23/17 08: 33; Admin Dose 200 MG; Start 08/23/17 at 09:00 Carvedilol (Coreg) 6.25 mg BID PO Last administered on 08/23/17 20:34; Admin Dose 6.25 MG; Start 08/22/17 at 21:00 MEKA ROBERTSON MD Aug 23, 2017 22:43
[2017-08-24] MEDS: HYDROmorphONE 2 MG TAB PO PRN ×6 (02:38→21:11)
[2017-08-24 03:01] VITALS: BP 148/73; RESP 18
[2017-08-24] MEDS: PANTOPRAZOLE (EC) 40 MG TAB PO SCH (05:41)
[2017-08-24 06:38] LABS: BASOPHIL # 0.1 10^3/ul (0.0-0.1); BASOPHILS % 0.9 % (0.0-2.0); EOSINOPHILS # 0.5 10^3/ul (0.0-0.5); EOSINOPHILS % 6.2 % (0.0-7.0); HEMATOCRIT 26.3 % (37.0-47.0); HEMOGLOBIN 8.3 g/dl (12.0-16.0); LYMPHOCYTES # 1.2 10^3/ul (0.8-2.9); LYMPHOCYTES % 15.4 % (15.0-51.0); MEAN CORPUSCULAR HEMOGLOBIN 26.9 pg (29.0-33.0); MEAN CORPUSCULAR HGB CONC 31.6 g/dl (32.0-37.0); MEAN CORPUSCULAR VOLUME 85.4 fl (82.0-101.0); MONOCYTE # 0.8 10^3/ul (0.3-0.9); MONOCYTES % 10.1 % (0.0-11.0); NEUTROPHIL # 5.1 10^3/ul (1.6-7.5); NEUTROPHILS % 63.9 % (39.0-77.0); PLATELET COUNT 288 10^3/UL (140-415); RED BLOOD COUNT 3.08 10^6/ul (4.20-5.40); RED CELL DISTRIBUTION WIDTH 21.2 % (11.5-14.5)
[2017-08-24 07:00] LABS: CALCIUM 8.5 mg/dl (8.4-10.2); CREATININE 0.72 mg/dl (0.44-1.00)
[2017-08-24 08:20] VITALS: BP 140/75; RESP 20
--- NOTE | 2017-08-24 08:33 | PN ---
Date/Time of Note Date/Time of Note DATE: 08/24/17 TIME: 08:32 Assessment/Plan VTE Prophylaxis VTE Prophylaxis Intervention: SCD's Lines/Catheters IV Catheter Type (from Nrsg): Mid Line Central line still needed: No Urinary Cath still in place: Yes Reason Cath still needed: urinary retention Assessment/Plan Assessment/Plan Paroxysmal atrial fibrillation, currently sinus Acute decompensated systolic and diastolic congestive heart failure Low normal ejection fraction 50% Colon mass status post colon surgery July 26, 2017 and repeat August 05, 2017 Acute kidney injury, improved Sepsis Vent dependent respiratory failure, status post extubation -Patient remains in sinus rhythm, on amiodarone/coreg. Ideally maintain potassium above 4.0 and magnesium above 2.0. Diuretics as per our nephrology colleagues. Restart anticoagulation when okay by our surgery colleagues. Subjective 24 Hr Interval Summary Free Text/Dictation The patient with no change Exam/Review of Systems Vital Signs Vitals Vital Signs Date Time Temp Pulse Resp B/P Pulse Ox O2 Delivery O2 Flow Rate FiO2 08/24/17 08:20 98.8 78 20 140/75 98 08/24/17 03:03 3.0 08/23/17 21:04 Nasal Cannula Intake and Output 08/23/17 08/23/17 08/24/17 15:00 23:00 07:00 Intake Total 300 ml 1910 ml 1500 ml Output Total 2564 ml 1500 ml Balance 300 ml -654 ml 0 ml Results Result Diagram: 08/24/17 0501 08/24/17 0501 Results 24 hrs Laboratory Tests Test 08/24/17 05:01 White Blood Count 8.0 Red Blood Count 3.08 L Hemoglobin 8.3 L Hematocrit 26.3 L Mean Corpuscular Volume 85.4 Mean Corpuscular Hemoglobin 26.9 L Mean Corpuscular Hemoglobin Concent 31.6 L Red Cell Distribution Width 21.2 H Platelet Count 288 Mean Platelet Volume 10.0 Neutrophils % 63.9 Lymphocytes % 15.4 Monocytes % 10.1 Eosinophils % 6.2 Basophils % 0.9 Nucleated Red Blood Cells % 0.0 Neutrophils # 5.1 Lymphocytes # 1.2 Monocytes # 0.8 Eosinophils # 0.5 Basophils # 0.1 Nucleated Red Blood Cells # 0.0 Sodium Level 134 L Potassium Level 4.0 Chloride Level 91 L Carbon Dioxide Level 35 H Anion Gap 12 Blood Urea Nitrogen 13 Creatinine 0.72 Glucose Level 97 Calcium Level 8.5 Medications Medications Current Medications Acetaminophen (Tylenol Tab) 650 mg Q4H PRN PO pain/fever; Start 07/24/17 at 07 :00; Status Future Hold Phenol (Chloraseptic Throat [place]) 2 spray Q2H PRN [place] SORE THROAT Last administered on 07/29/17 18:10; Admin Dose 2 SPRAY; Start 07/29/17 at 13:00 Diphenhydramine HCl (Benadryl) 25 mg Q6H PRN IV SLEEP Last administered on 08/01 00:19; Admin Dose 25 MG; Start 07/31/17 at 13:00 Chlorpromazine (Thorazine) 10 mg Q6 PRN IM HICCUPS Last administered on 21:21; Admin Dose 10 MG; Start 08/02/17 at 06:00 Loratadine (Claritin) 10 mg DAILY NGT Last administered on 08/23/17 08:32; Admin Dose 10 MG; Start 08/04/17 at 09:00 Hydralazine HCl (Apresoline) 10 mg Q6H PRN IV sbp>170 Last administered on 14:18; Admin Dose 10 MG; Start 08/07/17 at 18:00 Lisinopril (Zestril) 20 mg DAILY PO Last administered on 08/23/17 08:32; Admin Dose 20 MG; Start 08/10/17 at 10:30 Acetaminophen (Tylenol Tab) 650 mg Q4H PRN PO PAIN AND OR ELEVATED TEMP Last administered on 08/19/17 21:02; Admin Dose 650 MG; Start 08/10/17 at 10:30 Ondansetron HCl (Zofran Inj) 4 mg Q6H PRN IV NAUSEA AND/OR VOMITING Last administered on 08/23/17 15:25; Admin Dose 4 MG; Start 08/12/17 at 13:00 Pantoprazole (Protonix Tab) 40 mg DAILY@06 PO Last administered on 08/24/17 05:41; Admin Dose 40 MG; Start 08/16/17 at 06:00 Metoclopramide HCl (Reglan) 10 mg Q6 PRN IV Nausea Last administered on 10:46; Admin Dose 10 MG; Start 08/17/17 at 18:00 Nystatin (Nystatin Susp) 5 ml QID PO Last administered on 08/23/17 20:34; Admin Dose 5 ML; Start 08/20/17 at 13:00 Fluconazole (Diflucan) 100 mg DAILY PO Last administered on 08/23/17 08:32; Admin Dose 100 MG; Start 08/21/17 at 09:00 Hydromorphone HCl (Dilaudid) 2 mg Q3H PRN PO PAIN Last administered on 05:41; Admin Dose 2 MG; Start 08/22/17 at 14:30 Amiodarone HCl (Cordarone) 200 mg DAILY PO Last administered on 08/23/17 08: 33; Admin Dose 200 MG; Start 08/23/17 at 09:00 Carvedilol (Coreg) 6.25 mg BID PO Last administered on 08/23/17 20:34; Admin Dose 6.25 MG; Start 08/22/17 at 21:00 MURPHY MARIANO MD Aug 24, 2017 08:33
[2017-08-24] MEDS: NYSTATIN SUSP 5 ML CUP PO SCH ×4 (10:00→21:11)
[2017-08-24] MEDS: LISINOPRIL 20 MG TAB PO SCH (10:01)
[2017-08-24] MEDS: LORATADINE 10 MG TAB NGT SCH (10:01)
[2017-08-24] MEDS: FLUCONAZOLE 100 MG TAB PO SCH (10:01)
[2017-08-24] MEDS: AMIODARONE 200 MG TAB PO SCH (10:02)
--- NOTE | 2017-08-24 12:58 | PN ---
Date/Time of Note Date/Time of Note DATE: 11/17 TIME: 12:58 Assessment/Plan VTE Prophylaxis VTE Prophylaxis Intervention: SCD's Assessment/Plan Chief Complaint/Hosp Course 1. Postop anastomotic leak with sepsis, status post ex lap with drainage of abscesses, drain placement, partial colectomy and colostomy POD#17 Status post Left hemicolectomy for sigmoid adenocarcinoma/mass POD#25 Intraoperative/intraperitoneal cultures positive for E. coli, enterococcus, staph aureus. VITA drain culture sent recently with enterococcus, Enterobacter cloacae and staph aureus. Patient still on appropriate antibiotics based on previous cultures and most recent cultures, leukocytosis improving except for ongoing bandemia. She remains afebrile Follow-up infectious disease recommendations regarding choices of antibiotics and length of treatment based on current data. Per latest discussion with infectious disease patient may need a prolonged course due to deep intra- abdominal infection postoperatively/abscesses. This would mean the patient may need to complete up to 4 weeks of antibiotics, she has been on antibiotics for the past couple of weeks already. Midline in place Patient on regular diet. Encourage physical therapy and out of bed to chair at least. Will increase Dilaudid to p.o. to 2 mg She will need [facility] facility placement at time of discharge 2. Thrush, oral candidiasis, slowly improving, continue nystatin qid and Diflucan p.o. 3. S/p Acute respiratory failure, postoperatively secondary to volume overload. Status post diuresis with Bumex drip and scheduled Bumex. Much improved volume status and off Bumex currently. Appreciate recommendations from nephrology and pulmonary. 4. Atrial fibrillation, chronic, maintaining sinus rhythm, s/p 1 unit pRBC transfusion Replete potassium and magnesium as needed Keep electrolytes within normal. Continue low-dose amiodarone p.o. also back on carvedilol Appreciate cardiology recommendations. Anticoagulation discontinued for now, per cardiology okay to resume once okay per general surgery Downgrade to [facility] 5. Chronic congestive heart failure, chronic diastolic dysfunction and ejection fraction of 55% on latest outpatient echocardiogram in January 2017 and confirmed to be 50% on this admission. Status post CHF exacerbation, better volume status. Current diuresis with Bumex as needed 6. Acute kidney injury, in setting of sepsis, also had the contrast studies 2. Resolved, renal function back to normal. Leal catheter in place. Adequate urine output, patient off fluids, Bumex as needed, will plan on giving today with packed red blood cell transfusion. Follow-up recommendations from nephrology, Dr. Kiser 7. Anemia, acute on chronic, postop: Hemoglobin was down to 7.5, patient apparently had a reaction during blood transfusion when she became febrile with some chills after 1 unit of packed red blood cells. Therefore she only got 1 unit and her hemoglobin is stable Patient iron deficient, will start Ferrlecit IV daily 3 days. Continue to monitor hemoglobin daily No acute bleeding noted. Prophylaxis: Off anticoagulation, SCDs, Pepcid for GI prophylaxis. Disposition: Anticipate DC to rehab facility in next 1-2 days Problems: Subjective 24 Hr Interval Summary Constitutional: no complaints Exam/Review of Systems Vital Signs Vitals Vital Signs Date Time Temp Pulse Resp B/P Pulse Ox O2 Delivery O2 Flow Rate FiO2 08/24/17 08:20 98.8 78 20 140/75 98 08/24/17 03:03 3.0 08/23/17 21:04 Nasal Cannula Intake and Output 08/23/17 08/23/17 08/24/17 15:00 23:00 07:00 Intake Total 300 ml 1910 ml 1500 ml Output Total 2564 ml 1500 ml Balance 300 ml -654 ml 0 ml Exam Constitutional: alert, oriented Respiratory: clear to auscultation Cardiovascular: regular rate and rhythm Gastrointestinal: soft, No distended Musculoskeletal: nl extremities to inspection Results Result Diagram: 08/24/17 0501 08/24/17 0501 Results 24 hrs Laboratory Tests Test 08/24/17 05:01 White Blood Count 8.0 Red Blood Count 3.08 L Hemoglobin 8.3 L Hematocrit 26.3 L Mean Corpuscular Volume 85.4 Mean Corpuscular Hemoglobin 26.9 L Mean Corpuscular Hemoglobin Concent 31.6 L Red Cell Distribution Width 21.2 H Platelet Count 288 Mean Platelet Volume 10.0 Neutrophils % 63.9 Lymphocytes % 15.4 Monocytes % 10.1 Eosinophils % 6.2 Basophils % 0.9 Nucleated Red Blood Cells % 0.0 Neutrophils # 5.1 Lymphocytes # 1.2 Monocytes # 0.8 Eosinophils # 0.5 Basophils # 0.1 Nucleated Red Blood Cells # 0.0 Sodium Level 134 L Potassium Level 4.0 Chloride Level 91 L Carbon Dioxide Level 35 H Anion Gap 12 Blood Urea Nitrogen 13 Creatinine 0.72 Glucose Level 97 Calcium Level 8.5 Medications Medications Current Medications Acetaminophen (Tylenol Tab) 650 mg Q4H PRN PO pain/fever; Start 07/24/17 at 07 :00; Status Future Hold Phenol (Chloraseptic Throat [place]) 2 spray Q2H PRN MT SORE THROAT Last administered on 07/29/17 18:10; Admin Dose 2 SPRAY; Start 07/29/17 at 13:00 Diphenhydramine HCl (Benadryl) 25 mg Q6H PRN IV SLEEP Last administered on 08/01 00:19; Admin Dose 25 MG; Start 07/31/17 at 13:00 Chlorpromazine (Thorazine) 10 mg Q6 PRN IM HICCUPS Last administered on 21:21; Admin Dose 10 MG; Start 08/02/17 at 06:00 Loratadine (Claritin) 10 mg DAILY NGT Last administered on 08/24/17 10:01; Admin Dose 10 MG; Start 08/04/17 at 09:00 Hydralazine HCl (Apresoline) 10 mg Q6H PRN IV sbp>170 Last administered on 14:18; Admin Dose 10 MG; Start 08/07/17 at 18:00 Lisinopril (Zestril) 20 mg DAILY PO Last administered on 08/24/17 10:01; Admin Dose 20 MG; Start 08/10/17 at 10:30 Acetaminophen (Tylenol Tab) 650 mg Q4H PRN PO PAIN AND OR ELEVATED TEMP Last administered on 08/19/17 21:02; Admin Dose 650 MG; Start 08/10/17 at 10:30 Ondansetron HCl (Zofran Inj) 4 mg Q6H PRN IV NAUSEA AND/OR VOMITING Last administered on 08/23/17 15:25; Admin Dose 4 MG; Start 08/12/17 at 13:00 Pantoprazole (Protonix Tab) 40 mg DAILY@06 PO Last administered on 08/24/17 05:41; Admin Dose 40 MG; Start 08/16/17 at 06:00 Metoclopramide HCl (Reglan) 10 mg Q6 PRN IV Nausea Last administered on 10:46; Admin Dose 10 MG; Start 08/17/17 at 18:00 Nystatin (Nystatin Susp) 5 ml QID PO Last administered on 08/24/17 12:41; Admin Dose 5 ML; Start 08/20/17 at 13:00 Fluconazole (Diflucan) 100 mg DAILY PO Last administered on 08/24/17 10:01; Admin Dose 100 MG; Start 08/21/17 at 09:00 Hydromorphone HCl (Dilaudid) 2 mg Q3H PRN PO PAIN Last administered on 10:00; Admin Dose 2 MG; Start 08/22/17 at 14:30 Amiodarone HCl (Cordarone) 200 mg DAILY PO Last administered on 08/24/17 10: 02; Admin Dose 200 MG; Start 08/23/17 at 09:00 Carvedilol (Coreg) 6.25 mg BID PO Last administered on 08/24/17 10:01; Admin Dose 6.25 MG; Start 08/22/17 at 21:00 FINESSE UMAÑA Aug 24, 2017 12:58
--- NOTE | 2017-08-24 13:06 | CONS ---
Date/Time of Note Date/Time of Note DATE: 08/24/17 TIME: 13:00 Assessment/Plan Assessment/Plan Chief Complaint/Hosp Course ID PROGRESS NOTE CURRENT ABX: DAY # =>Diflucan + Nystatin for oral thrush s/p Vanco IV #20 + Merrem #18 +=> DC'd 08/23 24H INTERVAL SUMMARY * OFF ABX 24H, feeling well, no fevers, WBC normalized, she is taking po's and bowels are working * O2 via NC, ABD DSG c/d/I -- she worked w/PTx yesterday for OOB commode * 08/24/17 0501 08/24/17 0501 PHYSICAL EXAMINATION: GENERAL: VSS, afebrile, NAD HEENT: Unremarkable NECK: Supple, trach midline CHEST: Equal chest rise bilaterally, without dyspnea on observation HEART: RRR ABDOMEN: Soft, DSG intact/ colostomy EXT: Warm, BLEXT edema SKIN: No rash, no diaphoresis ID ASSESSMENT: 51 yo Obese F admit VPH: 1. SIRS with low grade temps, leukocytosis=> RESOLVED * Status post septic shock. 2. Status post respiratory failure=> STABLE 3. Colon cancer, status post resection with primary anastomosis complicated by anastomotic leak * s/p exploratory laparotomy and drainage of abscesses, partial colectomy with colostomy on 08/05/2017. 4. CHF mixed systolic/diastolic * Left pleural effusion, status post thoracentesis. 5. Atrial fibrillation - Amiodarone onboard 6. Anemia. 7. Oliguric EJ due to ATN from Shock 8. Oral candidiasis/thrush (-)MRSA ABX ALLERGIES: PCN/Sulfa INVASIVES: [id number], FC CURRENT ABX: =>Diflucan + Nystatin for oral thrush s/p Vanco IV #20 + Merrem #18 +=> DC'd 08/23 ID RECOMMENDATIONS/PLAN: 1. Excellent recovery, she is doing well now OFF ABX 24H and stable. 2. Increase mobility, DC lines, catheters per primary 3. When cleared for DC home vs SNF-> May DC OFF ABX, continue Nystatin 5mL QID swish/spit for resolving oral maame, DC Diflucan . Problems: Consultation Date/Type/Reason Admit Date/Time Jul 24, 2017 at 06:16 Initial Consult Date 08/05/17 Type of Consultation: ID Referring Provider: RAE CALVO Exam/Review of Systems Vital Signs Vitals Vital Signs Date Time Temp Pulse Resp B/P Pulse Ox O2 Delivery O2 Flow Rate FiO2 08/24/17 08:20 98.8 78 20 140/75 98 08/24/17 03:03 3.0 08/23/17 21:04 Nasal Cannula Intake and Output 08/23/17 08/23/17 08/24/17 15:00 23:00 07:00 Intake Total 300 ml 1910 ml 1500 ml Output Total 2564 ml 1500 ml Balance 300 ml -654 ml 0 ml Results Result Diagram: 08/24/17 0501 08/24/17 0501 Results 24 hrs Laboratory Tests Test 08/24/17 05:01 White Blood Count 8.0 Red Blood Count 3.08 L Hemoglobin 8.3 L Hematocrit 26.3 L Mean Corpuscular Volume 85.4 Mean Corpuscular Hemoglobin 26.9 L Mean Corpuscular Hemoglobin Concent 31.6 L Red Cell Distribution Width 21.2 H Platelet Count 288 Mean Platelet Volume 10.0 Neutrophils % 63.9 Lymphocytes % 15.4 Monocytes % 10.1 Eosinophils % 6.2 Basophils % 0.9 Nucleated Red Blood Cells % 0.0 Neutrophils # 5.1 Lymphocytes # 1.2 Monocytes # 0.8 Eosinophils # 0.5 Basophils # 0.1 Nucleated Red Blood Cells # 0.0 Sodium Level 134 L Potassium Level 4.0 Chloride Level 91 L Carbon Dioxide Level 35 H Anion Gap 12 Blood Urea Nitrogen 13 Creatinine 0.72 Glucose Level 97 Calcium Level 8.5 Medications Medications Current Medications Acetaminophen (Tylenol Tab) 650 mg Q4H PRN PO pain/fever; Start 07/24/17 at 07 :00; Status Future Hold Phenol (Chloraseptic Throat [place]) 2 spray Q2H PRN MT SORE THROAT Last administered on 07/29/17 18:10; Admin Dose 2 SPRAY; Start 07/29/17 at 13:00 Diphenhydramine HCl (Benadryl) 25 mg Q6H PRN IV SLEEP Last administered on 08/01 00:19; Admin Dose 25 MG; Start 07/31/17 at 13:00 Chlorpromazine (Thorazine) 10 mg Q6 PRN IM HICCUPS Last administered on 21:21; Admin Dose 10 MG; Start 08/02/17 at 06:00 Loratadine (Claritin) 10 mg DAILY NGT Last administered on 08/24/17 10:01; Admin Dose 10 MG; Start 08/04/17 at 09:00 Hydralazine HCl (Apresoline) 10 mg Q6H PRN IV sbp>170 Last administered on 14:18; Admin Dose 10 MG; Start 08/07/17 at 18:00 Lisinopril (Zestril) 20 mg DAILY PO Last administered on 08/24/17 10:01; Admin Dose 20 MG; Start 08/10/17 at 10:30 Acetaminophen (Tylenol Tab) 650 mg Q4H PRN PO PAIN AND OR ELEVATED TEMP Last administered on 08/19/17 21:02; Admin Dose 650 MG; Start 08/10/17 at 10:30 Ondansetron HCl (Zofran Inj) 4 mg Q6H PRN IV NAUSEA AND/OR VOMITING Last administered on 08/23/17 15:25; Admin Dose 4 MG; Start 08/12/17 at 13:00 Pantoprazole (Protonix Tab) 40 mg DAILY@06 PO Last administered on 08/24/17 05:41; Admin Dose 40 MG; Start 08/16/17 at 06:00 Metoclopramide HCl (Reglan) 10 mg Q6 PRN IV Nausea Last administered on 10:46; Admin Dose 10 MG; Start 08/17/17 at 18:00 Nystatin (Nystatin Susp) 5 ml QID PO Last administered on 08/24/17 12:41; Admin Dose 5 ML; Start 08/20/17 at 13:00 Fluconazole (Diflucan) 100 mg DAILY PO Last administered on 08/24/17 10:01; Admin Dose 100 MG; Start 08/21/17 at 09:00 Hydromorphone HCl (Dilaudid) 2 mg Q3H PRN PO PAIN Last administered on 10:00; Admin Dose 2 MG; Start 08/22/17 at 14:30 Amiodarone HCl (Cordarone) 200 mg DAILY PO Last administered on 08/24/17 10: 02; Admin Dose 200 MG; Start 08/23/17 at 09:00 Carvedilol (Coreg) 6.25 mg BID PO Last administered on 08/24/17t 10:01; Admin Dose 6.25 MG; Start 08/22/17 at 21:00 HARPER TORRES NP Aug 24, 2017 13:06
[2017-08-24] MEDS ORDERED: NYST1000 PO (13:25)
--- NOTE | 2017-08-24 13:37 | CONS ---
Date/Time of Note Date/Time of Note DATE: 08/24/17 TIME: 13:27 Assessment/Plan Assessment/Plan Additional Assessment/Plan 1. Oliguric EJ due to ATN from Shock- Multifactorial septic from peritonitis + Hemorrhagic- Improving - making good urine- 4065 ml/24 hrs 2. Acute hyperkalemia due to EJ- Resolved 3. Metabolic acidosis with lactic acidosis- Improved much better, 4. acute resp failure, possible Asp PNA vs HCAP - pt remained on ventilator post operatively ,s/p US thoracentesis 400 cc removed from left chest on - s/p extubation on 08/09/17 5. Septic shock requiring pressors, now off levophed 6. Status post Left hemicolectomy for sigmoid adenocarcinoma/mass POD#8, s/p total of 4 units pRBC since admission. - again pt underwent Exploratory laparotomy with intra- abdominal abscess drainage, Placement of percutaneous Maurisio drains # 20 x2. , Partial colectomy.Formation of end colostomy with Corona's pouch. on 08/05/17 7. Atrial fibrillation 8. Chronic diastolic heart failure with EF 55% 9. Hypocalcemia- resolved / with hypoalbuminemia 10. Hyponatremia- monitor labs Plan: - s/p Bumex gtt with IV albumin 08/13/17- HCo3 improving,Cr normal, good urine output Monitor electrolytes and Replace as needed will continue to follow up along with other subspecialist Plan of care dw Dr Jean/ staff Consultation Date/Type/Reason Admit Date/Time Jul 24, 2017 at 06:16 Initial Consult Date 08/05/17 Type of Consultation: ID Referring Provider: RAE CALVO 24 HR Interval Summary Free Text/Dictation - sitting up in Fowlers position in bed - Using supplement oxygen,breathing comfortable, - c/o abdominal tenderness at surgical incision site- ID follows - gets PT- gets out of bed, able to stand up only, not able to walk yet. orthostatic hypotension when position change or stands up.- Constitutional: requiring O2 Detailed Summary Respiratory: no complaints Cardiovascular: no complaints Gastrointestinal: other (surgical abdomen- inscion- possible infected, ID follows), pain Genitourinary: no complaints Musculoskeletal: no complaints Exam/Review of Systems Vital Signs Vitals Vital Signs Date Time Temp Pulse Resp B/P Pulse Ox O2 Delivery O2 Flow Rate FiO2 08/24/17 08:20 98.8 78 20 140/75 98 08/24/17 03:03 3.0 08/23/17 21:04 Nasal Cannula Intake and Output 08/23/17 08/23/17 08/24/17 15:00 23:00 07:00 Intake Total 300 ml 1910 ml 1500 ml Output Total 2564 ml 1500 ml Balance 300 ml -654 ml 0 ml Exam Constitutional: alert, oriented, well developed ENMT: nl external ears & nose Respiratory: diminished breath sounds, normal air movement Cardiovascular: nl pulses, other (s1s) Gastrointestinal: other, soft Musculoskeletal: nl extremities to inspection Extremities: edema (trace BLE) Neurological: nl mental status, nl speech Results Result Diagram: 08/24/17 0501 08/24/17 0501 Results 24 hrs Laboratory Tests Test 08/24/17 05:01 White Blood Count 8.0 Red Blood Count 3.08 L Hemoglobin 8.3 L Hematocrit 26.3 L Mean Corpuscular Volume 85.4 Mean Corpuscular Hemoglobin 26.9 L Mean Corpuscular Hemoglobin Concent 31.6 L Red Cell Distribution Width 21.2 H Platelet Count 288 Mean Platelet Volume 10.0 Neutrophils % 63.9 Lymphocytes % 15.4 Monocytes % 10.1 Eosinophils % 6.2 Basophils % 0.9 Nucleated Red Blood Cells % 0.0 Neutrophils # 5.1 Lymphocytes # 1.2 Monocytes # 0.8 Eosinophils # 0.5 Basophils # 0.1 Nucleated Red Blood Cells # 0.0 Sodium Level 134 L Potassium Level 4.0 Chloride Level 91 L Carbon Dioxide Level 35 H Anion Gap 12 Blood Urea Nitrogen 13 Creatinine 0.72 Glucose Level 97 Calcium Level 8.5 Medications Medications Current Medications Acetaminophen (Tylenol Tab) 650 mg Q4H PRN PO pain/fever; Start 07/24/17 at 07 :00; Status Future Hold Phenol (Chloraseptic Throat [place]) 2 spray Q2H PRN MT SORE THROAT Last administered on 07/29/17 18:10; Admin Dose 2 SPRAY; Start 07/29/17 at 13:00 Diphenhydramine HCl (Benadryl) 25 mg Q6H PRN IV SLEEP Last administered on 08/01 00:19; Admin Dose 25 MG; Start 07/31/17 at 13:00 Chlorpromazine (Thorazine) 10 mg Q6 PRN IM HICCUPS Last administered on 21:21; Admin Dose 10 MG; Start 08/02/17 at 06:00 Loratadine (Claritin) 10 mg DAILY NGT Last administered on 08/24/17 10:01; Admin Dose 10 MG; Start 08/04/17 at 09:00 Hydralazine HCl (Apresoline) 10 mg Q6H PRN IV sbp>170 Last administered on 14:18; Admin Dose 10 MG; Start 08/07/17 at 18:00 Lisinopril (Zestril) 20 mg DAILY PO Last administered on 08/24/17 10:01; Admin Dose 20 MG; Start 08/10/17 at 10:30 Acetaminophen (Tylenol Tab) 650 mg Q4H PRN PO PAIN AND OR ELEVATED TEMP Last administered on 08/19/17 21:02; Admin Dose 650 MG; Start 08/10/17 at 10:30 Ondansetron HCl (Zofran Inj) 4 mg Q6H PRN IV NAUSEA AND/OR VOMITING Last administered on 08/23/17 15:25; Admin Dose 4 MG; Start 08/12/17 at 13:00 Pantoprazole (Protonix Tab) 40 mg DAILY@06 PO Last administered on 08/24/17 05:41; Admin Dose 40 MG; Start 08/16/17 at 06:00 Metoclopramide HCl (Reglan) 10 mg Q6 PRN IV Nausea Last administered on 10:46; Admin Dose 10 MG; Start 08/17/17 at 18:00 Nystatin (Nystatin Susp) 5 ml QID PO Last administered on 08/24/17 12:41; Admin Dose 5 ML; Start 08/20/17 at 13:00 Fluconazole (Diflucan) 100 mg DAILY PO Last administered on 08/24/17 10:01; Admin Dose 100 MG; Start 08/21/17 at 09:00 Hydromorphone HCl (Dilaudid) 2 mg Q3H PRN PO PAIN Last administered on 10:00; Admin Dose 2 MG; Start 08/22/17 at 14:30 Amiodarone HCl (Cordarone) 200 mg DAILY PO Last administered on 08/24/17 10: 02; Admin Dose 200 MG; Start 08/23/17 at 09:00 Carvedilol (Coreg) 6.25 mg BID PO Last administered on 08/24/17 10:01; Admin Dose 6.25 MG; Start 08/22/17 at 21:00 JUSTINA POSADAS Aug 24, 2017 13:37
[2017-08-24 15:39] VITALS: BP 136/79; RESP 20
[2017-08-24 19:25] VITALS: BP 151/83; RESP 18
[2017-08-24] MEDS: LEVALBUTEROL (NEB) 0.63 MG/3 ML AMP HHN PRN (21:54)
[2017-08-25] MEDS: HYDROmorphONE 2 MG TAB PO PRN ×7 (00:20→23:04)
[2017-08-25 02:10] VITALS: BP 129/66; RESP 20
[2017-08-25 05:59] LABS: BASOPHIL # 0.1 10^3/ul (0.0-0.1); BASOPHILS % 0.7 % (0.0-2.0); EOSINOPHILS # 0.5 10^3/ul (0.0-0.5); EOSINOPHILS % 5.3 % (0.0-7.0); HEMATOCRIT 27.2 % (37.0-47.0); HEMOGLOBIN 8.5 g/dl (12.0-16.0); LYMPHOCYTES # 1.4 10^3/ul (0.8-2.9); LYMPHOCYTES % 14.3 % (15.0-51.0); MEAN CORPUSCULAR HEMOGLOBIN 26.8 pg (29.0-33.0); MEAN CORPUSCULAR HGB CONC 31.3 g/dl (32.0-37.0); MEAN CORPUSCULAR VOLUME 85.8 fl (82.0-101.0); MEAN PLATELET VOLUME 9.8 fl (7.4-10.4); MONOCYTE # 0.7 10^3/ul (0.3-0.9); MONOCYTES % 7.2 % (0.0-11.0); NEUTROPHIL # 6.7 10^3/ul (1.6-7.5); NEUTROPHILS % 69.5 % (39.0-77.0); PLATELET COUNT 313 10^3/UL (140-415); RED BLOOD COUNT 3.17 10^6/ul (4.20-5.40); RED CELL DISTRIBUTION WIDTH 20.4 % (11.5-14.5); WHITE BLOOD COUNT 9.6 10^3/ul (4.8-10.8)
[2017-08-25] MEDS: PANTOPRAZOLE (EC) 40 MG TAB PO SCH (06:12)
[2017-08-25 06:31] LABS: CALCIUM 8.5 mg/dl (8.4-10.2); CREATININE 0.67 mg/dl (0.44-1.00)
[2017-08-25] MEDS: ONDANSETRON 4 MG INJ IV PRN ×2 (06:38→20:55)
[2017-08-25] MEDS: FLUCONAZOLE 100 MG TAB PO SCH (08:52)
[2017-08-25] MEDS: LORATADINE 10 MG TAB NGT SCH (08:52)
[2017-08-25] MEDS: LISINOPRIL 20 MG TAB PO SCH (08:52)
[2017-08-25] MEDS: AMIODARONE 200 MG TAB PO SCH (08:52)
[2017-08-25] MEDS: NYSTATIN SUSP 5 ML CUP PO SCH ×4 (08:52→20:55)
[2017-08-25 08:54] VITALS: BP 140/79; RESP 18
--- NOTE | 2017-08-25 09:32 | PN ---
Date/Time of Note Date/Time of Note DATE: 08/25/17 TIME: 09:32 Assessment/Plan VTE Prophylaxis VTE Prophylaxis Intervention: SCD's Lines/Catheters IV Catheter Type (from Nrsg): Mid Line Urinary Cath still in place: Yes Reason Cath still needed: urinary retention Assessment/Plan Assessment/Plan Paroxysmal atrial fibrillation, currently sinus Acute decompensated systolic and diastolic congestive heart failure Low normal ejection fraction 50% Colon mass status post colon surgery July 26, 2017 and repeat August 05, 2017 Acute kidney injury, improved Sepsis Vent dependent respiratory failure, status post extubation -Patient remains in sinus rhythm, on amiodarone/coreg. Ideally maintain potassium above 4.0 and magnesium above 2.0. Diuretics as per our nephrology colleagues. Restart anticoagulation when okay by our surgery colleagues. Subjective 24 Hr Interval Summary Free Text/Dictation The patient with no cahnge Exam/Review of Systems Vital Signs Vitals Vital Signs Date Time Temp Pulse Resp B/P Pulse Ox O2 Delivery O2 Flow Rate FiO2 08/25/17 08:54 98.5 74 18 140/79 96 08/25/17 03:55 3.0 08/24/17 21:54 Nasal Cannula Intake and Output 08/24/17 08/24/17 08/25/17 15:00 23:00 07:00 Intake Total 1380 ml 500 ml Output Total 2025 ml 1000 ml Balance -645 ml -500 ml Results Result Diagram: 08/25/17 0448 08/25/17 0448 Results 24 hrs Laboratory Tests Test 08/25/17 04:48 White Blood Count 9.6 Red Blood Count 3.17 L Hemoglobin 8.5 L Hematocrit 27.2 L Mean Corpuscular Volume 85.8 Mean Corpuscular Hemoglobin 26.8 L Mean Corpuscular Hemoglobin Concent 31.3 L Red Cell Distribution Width 20.4 H Platelet Count 313 Mean Platelet Volume 9.8 Neutrophils % 69.5 Lymphocytes % 14.3 L Monocytes % 7.2 Eosinophils % 5.3 Basophils % 0.7 Nucleated Red Blood Cells % 0.0 Neutrophils # 6.7 Lymphocytes # 1.4 Monocytes # 0.7 Eosinophils # 0.5 Basophils # 0.1 Nucleated Red Blood Cells # 0.0 Sodium Level 133 L Potassium Level 4.0 Chloride Level 90 L Carbon Dioxide Level 35 H Anion Gap 12 Blood Urea Nitrogen 12 Creatinine 0.67 Glucose Level 116 Calcium Level 8.5 Medications Medications Current Medications Acetaminophen (Tylenol Tab) 650 mg Q4H PRN PO pain/fever; Start 07/24/17 at 07 :00; Status Future Hold Phenol (Chloraseptic Throat [place]) 2 spray Q2H PRN MT SORE THROAT Last administered on 07/29/17 18:10; Admin Dose 2 SPRAY; Start 07/29/17 at 13:00 Diphenhydramine HCl (Benadryl) 25 mg Q6H PRN IV SLEEP Last administered on 08/01 00:19; Admin Dose 25 MG; Start 07/31/17 at 13:00 Chlorpromazine (Thorazine) 10 mg Q6 PRN IM HICCUPS Last administered on 21:21; Admin Dose 10 MG; Start 08/02/17 at 06:00 Loratadine (Claritin) 10 mg DAILY NGT Last administered on 08/25/17 08:52; Admin Dose 10 MG; Start 08/04/17 at 09:00 Hydralazine HCl (Apresoline) 10 mg Q6H PRN IV sbp>170 Last administered on 14:18; Admin Dose 10 MG; Start 08/07/17 at 18:00 Lisinopril (Zestril) 20 mg DAILY PO Last administered on 08/25/17 08:52; Admin Dose 20 MG; Start 08/10/17 at 10:30 Acetaminophen (Tylenol Tab) 650 mg Q4H PRN PO PAIN AND OR ELEVATED TEMP Last administered on 08/19/17 21:02; Admin Dose 650 MG; Start 08/10/17 at 10:30 Ondansetron HCl (Zofran Inj) 4 mg Q6H PRN IV NAUSEA AND/OR VOMITING Last administered on 08/25/17 06:38; Admin Dose 4 MG; Start 08/12/17 at 13:00 Pantoprazole (Protonix Tab) 40 mg DAILY@06 PO Last administered on 08/25/17 06:12; Admin Dose 40 MG; Start 08/16/17 at 06:00 Metoclopramide HCl (Reglan) 10 mg Q6 PRN IV Nausea Last administered on 10:46; Admin Dose 10 MG; Start 08/17/17 at 18:00 Nystatin (Nystatin Susp) 5 ml QID PO Last administered on 08/25/17 08:52; Admin Dose 5 ML; Start 08/20/17 at 13:00 Fluconazole (Diflucan) 100 mg DAILY PO Last administered on 08/25/17 08:52; Admin Dose 100 MG; Start 08/21/17 at 09:00 Hydromorphone HCl (Dilaudid) 2 mg Q3H PRN PO PAIN Last administered on 06:31; Admin Dose 2 MG; Start 08/22/17 at 14:30 Amiodarone HCl (Cordarone) 200 mg DAILY PO Last administered on 08/25/17 08: 52; Admin Dose 200 MG; Start 08/23/17 at 09:00 Carvedilol (Coreg) 6.25 mg BID PO Last administered on 08/25/17 08:52; Admin Dose 6.25 MG; Start 08/22/17 at 21:00 MURPHY MARIANO MD Aug 25, 2017 09:32
--- NOTE | 2017-08-25 12:53 | CONS ---
Date/Time of Note Date/Time of Note DATE: 08/25/17 TIME: 12:42 Assessment/Plan Assessment/Plan Additional Assessment/Plan 1. Oliguric EJ due to ATN from Shock- Multifactorial septic from peritonitis + Hemorrhagic- Improving - making good urine- 3025 ml /24 hrs 2. Acute hyperkalemia due to EJ- Resolved 3. Metabolic acidosis with lactic acidosis- Improved much better, 4. acute resp failure, possible Asp PNA vs HCAP - pt remained on ventilator post operatively ,s/p US thoracentesis 400 cc removed from left chest on - s/p extubation on 08/09/17 5. Septic shock requiring pressors, now off levophed 6. Status post Left hemicolectomy for sigmoid adenocarcinoma/mass POD#8, s/p total of 4 units pRBC since admission. - again pt underwent Exploratory laparotomy with intra- abdominal abscess drainage, Placement of percutaneous Maurisio drains # 20 x2. , Partial colectomy.Formation of end colostomy with Corona's pouch. on 08/05/17 7. Atrial fibrillation 8. Chronic diastolic heart failure with EF 55% 9. Hypocalcemia- resolved / with hypoalbuminemia 10. Hyponatremia- monitor labs Plan: - s/p Bumex gtt with IV albumin 08/13/17- HCo3 improving,Cr normal, good urine output Monitor electrolytes and Replace as needed will continue to follow up along with other subspecialist Plan of care randell Jean/ staff Consultation Date/Type/Reason Admit Date/Time Jul 24, 2017 at 06:16 Initial Consult Date 08/05/17 Type of Consultation: ID Referring Provider: RAE CALVO 24 HR Interval Summary Free Text/Dictation - resting in bed, afebrile - remains on supplement oxygen - good urine output - abdominal incision- dressing wet, dw staff- ID follows Constitutional: requiring IVF, requiring O2 Detailed Summary Respiratory: no complaints Cardiovascular: no complaints Gastrointestinal: pain Genitourinary: no complaints Musculoskeletal: no complaints Skin: no complaints Neurologic: no complaints Exam/Review of Systems Vital Signs Vitals Vital Signs Date Time Temp Pulse Resp B/P Pulse Ox O2 Delivery O2 Flow Rate FiO2 08/25/17 08:54 98.5 74 18 140/79 96 08/25/17 07:40 Nasal Cannula 2.0 Intake and Output 11/08/24/17 08/25/17 14:59 22:59 06:59 Intake Total 1380 ml 500 ml Output Total 2025 ml 1000 ml Balance -645 ml -500 ml Exam Constitutional: alert, well developed Respiratory: diminished breath sounds Cardiovascular: nl pulses, other Gastrointestinal: other (colsostomy inact, incision- wet dressing), soft, tender Musculoskeletal: nl extremities to inspection Extremities: normal pulses Neurological: nl mental status, nl speech Results Result Diagram: 08/25/1744708/25/17447 Results 24 hrs Laboratory Tests Test 08/25/17 04:48 White Blood Count 9.6 Red Blood Count 3.17 L Hemoglobin 8.5 L Hematocrit 27.2 L Mean Corpuscular Volume 85.8 Mean Corpuscular Hemoglobin 26.8 L Mean Corpuscular Hemoglobin Concent 31.3 L Red Cell Distribution Width 20.4 H Platelet Count 313 Mean Platelet Volume 9.8 Neutrophils % 69.5 Lymphocytes % 14.3 L Monocytes % 7.2 Eosinophils % 5.3 Basophils % 0.7 Nucleated Red Blood Cells % 0.0 Neutrophils # 6.7 Lymphocytes # 1.4 Monocytes # 0.7 Eosinophils # 0.5 Basophils # 0.1 Nucleated Red Blood Cells # 0.0 Sodium Level 133 L Potassium Level 4.0 Chloride Level 90 L Carbon Dioxide Level 35 H Anion Gap 12 Blood Urea Nitrogen 12 Creatinine 0.67 Glucose Level 116 Calcium Level 8.5 Medications Medications Current Medications Acetaminophen (Tylenol Tab) 650 mg Q4H PRN PO pain/fever; Start 07/24/17 at 07 :00; Status Future Hold Phenol (Chloraseptic Throat [place]) 2 spray Q2H PRN MT SORE THROAT Last administered on 07/29/17 18:10; Admin Dose 2 SPRAY; Start 07/29/17 at 13:00 Diphenhydramine HCl (Benadryl) 25 mg Q6H PRN IV SLEEP Last administered on 08/01 00:19; Admin Dose 25 MG; Start 07/31/17 at 13:00 Chlorpromazine (Thorazine) 10 mg Q6 PRN IM HICCUPS Last administered on 21:21; Admin Dose 10 MG; Start 08/02/17 at 06:00 Loratadine (Claritin) 10 mg DAILY NGT Last administered on 08/25/17 08:52; Admin Dose 10 MG; Start 08/04/17 at 09:00 Hydralazine HCl (Apresoline) 10 mg Q6H PRN IV sbp>170 Last administered on 14:18; Admin Dose 10 MG; Start 08/07/17 at 18:00 Lisinopril (Zestril) 20 mg DAILY PO Last administered on 08/25/17 08:52; Admin Dose 20 MG; Start 08/10/17 at 10:30 Acetaminophen (Tylenol Tab) 650 mg Q4H PRN PO PAIN AND OR ELEVATED TEMP Last administered on 08/19/17 21:02; Admin Dose 650 MG; Start 08/10/17 at 10:30 Ondansetron HCl (Zofran Inj) 4 mg Q6H PRN IV NAUSEA AND/OR VOMITING Last administered on 08/25/17 06:38; Admin Dose 4 MG; Start 08/12/17 at 13:00 Pantoprazole (Protonix Tab) 40 mg DAILY@06 PO Last administered on 08/25/17 06:12; Admin Dose 40 MG; Start 08/16/17 at 06:00 Metoclopramide HCl (Reglan) 10 mg Q6 PRN IV Nausea Last administered on 10:46; Admin Dose 10 MG; Start 08/17/17 at 18:00 Nystatin (Nystatin Susp) 5 ml QID PO Last administered on 08/25/17 08:52; Admin Dose 5 ML; Start 08/20/17 at 13:00 Fluconazole (Diflucan) 100 mg DAILY PO Last administered on 08/25/17 08:52; Admin Dose 100 MG; Start 08/21/17 at 09:00 Hydromorphone HCl (Dilaudid) 2 mg Q3H PRN PO PAIN Last administered on 06:31; Admin Dose 2 MG; Start 08/22/17 at 14:30 Amiodarone HCl (Cordarone) 200 mg DAILY PO Last administered on 08/25/17 08: 52; Admin Dose 200 MG; Start 08/23/17 at 09:00 Carvedilol (Coreg) 6.25 mg BID PO Last administered on 08/25/17 08:52; Admin Dose 6.25 MG; Start 08/22/17 at 21:00 JUSTINA POSADAS Aug 25, 2017 12:52
[2017-08-25] MEDS ORDERED: ASA/ACETAMINOPHEN/CAFF TAB PO PRN ×2 (13:00)
--- NOTE | 2017-08-25 13:14 | CONS ---
Date/Time of Note Date/Time of Note DATE: 08/25/17 TIME: 13:12 Assessment/Plan Assessment/Plan Chief Complaint/Hosp Course ID PROGRESS NOTE CURRENT ABX: DAY # =>Diflucan + Nystatin for oral thrush s/p Vanco IV #20 + Merrem #18 +=> DC'd 08/23 24H INTERVAL SUMMARY * Doing well, new low flow air mattress, still c/o mouth burning due to oral candidiasis, * OFF IV ABX > 48H, feeling well, no fevers, WBC normalized, she is taking po's and bowels are working * O2 via NC, ABD DSG c/d/I -- she worked w/PTx PHYSICAL EXAMINATION: GENERAL: VSS, afebrile, NAD HEENT: Unremarkable NECK: Supple, trach midline CHEST: Equal chest rise bilaterally, without dyspnea on observation HEART: RRR ABDOMEN: Soft, DSG intact/ colostomy EXT: Warm, BLEXT edema SKIN: No rash, no diaphoresis ID ASSESSMENT: 51 yo Obese F admit VPH: 1. SIRS with low grade temps, leukocytosis=> RESOLVED * Status post septic shock. 2. Status post respiratory failure=> STABLE 3. Colon cancer, status post resection with primary anastomosis complicated by anastomotic leak * s/p exploratory laparotomy and drainage of abscesses, partial colectomy with colostomy on 08/05/2017. 4. CHF mixed systolic/diastolic * Left pleural effusion, status post thoracentesis. 5. Atrial fibrillation - Amiodarone onboard 6. Anemia. 7. Oliguric EJ due to ATN from Shock => IMPROVING 8. Oral candidiasis/thrush (-)MRSA ABX ALLERGIES: PCN/Sulfa INVASIVES: R-IJ-TLC, FC CURRENT ABX: =>Diflucan + Nystatin for oral thrush s/p Vanco IV #20 + Merrem #18 +=> DC'd 08/23 ID RECOMMENDATIONS/PLAN: 1. Stable OFF IV ABX x>48H and feeling well, renal function improved 2. Increase mobility, DC lines, catheters per primary 3. When cleared for DC home vs SNF-> May DC OFF ABX, continue Nystatin 5mL QID swish/spit for resolving oral maame, DC Diflucan . Problems: Consultation Date/Type/Reason Admit Date/Time Jul 24, 2017 at 06:16 Initial Consult Date 08/05/17 Type of Consultation: ID Referring Provider: RAE CALVO Exam/Review of Systems Vital Signs Vitals Vital Signs Date Time Temp Pulse Resp B/P Pulse Ox O2 Delivery O2 Flow Rate FiO2 08/25/17 08:54 98.5 74 18 140/79 96 08/25/17 07:40 Nasal Cannula 2.0 Intake and Output 08/24/17 08/24/17 08/25/17 15:00 23:00 07:00 Intake Total 1380 ml 500 ml Output Total 2025 ml 1000 ml Balance -645 ml -500 ml Results Result Diagram: 08/25/17 0448 08/25/17 0448 Results 24 hrs Laboratory Tests Test 08/25/17 04:48 White Blood Count 9.6 Red Blood Count 3.17 L Hemoglobin 8.5 L Hematocrit 27.2 L Mean Corpuscular Volume 85.8 Mean Corpuscular Hemoglobin 26.8 L Mean Corpuscular Hemoglobin Concent 31.3 L Red Cell Distribution Width 20.4 H Platelet Count 313 Mean Platelet Volume 9.8 Neutrophils % 69.5 Lymphocytes % 14.3 L Monocytes % 7.2 Eosinophils % 5.3 Basophils % 0.7 Nucleated Red Blood Cells % 0.0 Neutrophils # 6.7 Lymphocytes # 1.4 Monocytes # 0.7 Eosinophils # 0.5 Basophils # 0.1 Nucleated Red Blood Cells # 0.0 Sodium Level 133 L Potassium Level 4.0 Chloride Level 90 L Carbon Dioxide Level 35 H Anion Gap 12 Blood Urea Nitrogen 12 Creatinine 0.67 Glucose Level 116 Calcium Level 8.5 Medications Medications Current Medications Acetaminophen (Tylenol Tab) 650 mg Q4H PRN PO pain/fever; Start 07/24/17 at 07 :00; Status Future Hold Phenol (Chloraseptic Throat [place]) 2 spray Q2H PRN MT SORE THROAT Last administered on 07/29/17 18:10; Admin Dose 2 SPRAY; Start 07/29/17 at 13:00 Diphenhydramine HCl (Benadryl) 25 mg Q6H PRN IV SLEEP Last administered on 08/01 00:19; Admin Dose 25 MG; Start 07/31/17 at 13:00 Chlorpromazine (Thorazine) 10 mg Q6 PRN IM HICCUPS Last administered on 21:21; Admin Dose 10 MG; Start 08/02/17 at 06:00 Loratadine (Claritin) 10 mg DAILY NGT Last administered on 08/25/17 08:52; Admin Dose 10 MG; Start 08/04/17 at 09:00 Hydralazine HCl (Apresoline) 10 mg Q6H PRN IV sbp>170 Last administered on 14:18; Admin Dose 10 MG; Start 08/07/17 at 18:00 Lisinopril (Zestril) 20 mg DAILY PO Last administered on 08/25/17 08:52; Admin Dose 20 MG; Start 08/10/17 at 10:30 Acetaminophen (Tylenol Tab) 650 mg Q4H PRN PO PAIN AND OR ELEVATED TEMP Last administered on 08/19/17 21:02; Admin Dose 650 MG; Start 08/10/17 at 10:30 Ondansetron HCl (Zofran Inj) 4 mg Q6H PRN IV NAUSEA AND/OR VOMITING Last administered on 08/25/17 06:38; Admin Dose 4 MG; Start 08/12/17 at 13:00 Pantoprazole (Protonix Tab) 40 mg DAILY@06 PO Last administered on 08/25/17 06:12; Admin Dose 40 MG; Start 08/16/17 at 06:00 Metoclopramide HCl (Reglan) 10 mg Q6 PRN IV Nausea Last administered on 10:46; Admin Dose 10 MG; Start 08/17/17 at 18:00 Nystatin (Nystatin Susp) 5 ml QID PO Last administered on 08/25/17 08:52; Admin Dose 5 ML; Start 08/20/17 at 13:00 Fluconazole (Diflucan) 100 mg DAILY PO Last administered on 08/25/17 08:52; Admin Dose 100 MG; Start 08/21/17 at 09:00 Hydromorphone HCl (Dilaudid) 2 mg Q3H PRN PO PAIN Last administered on 06:31; Admin Dose 2 MG; Start 08/22/17 at 14:30 Amiodarone HCl (Cordarone) 200 mg DAILY PO Last administered on 08/25/17 08: 52; Admin Dose 200 MG; Start 08/23/17 at 09:00 Carvedilol (Coreg) 6.25 mg BID PO Last administered on 08/25/17t 08:52; Admin Dose 6.25 MG; Start 08/22/17 at 21:00 Acetaminophen/ Aspirin/Caffeine (Excedrin) 1 tab Q4H PRN PO HEADACHE; Start at 13:00 Acetaminophen/ Aspirin/Caffeine (Excedrin) 2 tab Q4H PRN PO SEVERE HEADACHE; Start 08/25/17 at 13:00 HARPER TORRES NP Aug 25, 2017 13:14
--- NOTE | 2017-08-25 16:47 | PN ---
Date/Time of Note Date/Time of Note DATE: 08/25/17 TIME: 16:44 Assessment/Plan VTE Prophylaxis VTE Prophylaxis Intervention: SCD's Assessment/Plan Chief Complaint/Hosp Course 1. Postop anastomotic leak with sepsis, status post ex lap with drainage of abscesses, drain placement, partial colectomy and colostomy POD#18 Status post Left hemicolectomy for sigmoid adenocarcinoma/mass POD#26 Intraoperative/intraperitoneal cultures positive for E. coli, enterococcus, staph aureus. VITA drain culture sent recently with enterococcus, Enterobacter cloacae and staph aureus. Patient is status post IV antibiotics and is doing well off antibiotics Encourage physical therapy and out of bed to chair at least. Continue Dilaudid 2 mg She will need long-term facility placement at time of discharge 2. Thrush, oral candidiasis, slowly improving, continue nystatin qid 3. S/p Acute respiratory failure, postoperatively secondary to volume overload. Status post diuresis with Bumex drip and scheduled Bumex. Much improved volume status and off Bumex currently. Appreciate recommendations from nephrology and pulmonary. 4. Atrial fibrillation, chronic, maintaining sinus rhythm, s/p 1 unit pRBC transfusion Replete potassium and magnesium as needed Keep electrolytes within normal. Continue low-dose amiodarone p.o. also back on carvedilol Appreciate cardiology recommendations. Anticoagulation discontinued for now, per cardiology okay to resume once okay per general surgery Downgrade to [facility] 5. Chronic congestive heart failure, chronic diastolic dysfunction and ejection fraction of 55% on latest outpatient echocardiogram in January 2017 and confirmed to be 50% on this admission. Status post CHF exacerbation, better volume status. Current diuresis with Bumex as needed 6. Acute kidney injury, in setting of sepsis, also had the contrast studies 2. Resolved, renal function back to normal. Leal catheter in place. Adequate urine output, patient off fluids, Bumex as needed, will plan on giving today with packed red blood cell transfusion. Follow-up recommendations from nephrology, Dr. Kiser 7. Anemia, acute on chronic, postop: Hemoglobin was down to 7.5, patient apparently had a reaction during blood transfusion when she became febrile with some chills after 1 unit of packed red blood cells. Therefore she only got 1 unit and her hemoglobin is stable Patient iron deficient, will start Ferrlecit IV daily 3 days. Continue to monitor hemoglobin daily No acute bleeding noted. Prophylaxis: Off anticoagulation, SCDs, Pepcid for GI prophylaxis. Disposition: Anticipate DC to rehab facility in next 1-2 days, disease case manager aware and is seeking placement as patient still cannot ambulate Problems: Subjective 24 Hr Interval Summary Neurologic: headache Exam/Review of Systems Vital Signs Vitals Vital Signs Date Time Temp Pulse Resp B/P Pulse Ox O2 Delivery O2 Flow Rate FiO2 08/25/17 08:54 98.5 74 18 140/79 96 08/25/17 07:40 Nasal Cannula 2.0 Intake and Output 08/24/17 08/24/17 08/25/17 15:00 23:00 07:00 Intake Total 1380 ml 500 ml Output Total 2025 ml 1000 ml Balance -645 ml -500 ml Exam Constitutional: alert, oriented Respiratory: clear to auscultation Cardiovascular: regular rate and rhythm Gastrointestinal: soft, No distended Musculoskeletal: nl extremities to inspection Results Result Diagram: 08/25/17 0448 08/25/17 0448 Results 24 hrs Laboratory Tests Test 08/25/17 04:48 White Blood Count 9.6 Red Blood Count 3.17 L Hemoglobin 8.5 L Hematocrit 27.2 L Mean Corpuscular Volume 85.8 Mean Corpuscular Hemoglobin 26.8 L Mean Corpuscular Hemoglobin Concent 31.3 L Red Cell Distribution Width 20.4 H Platelet Count 313 Mean Platelet Volume 9.8 Neutrophils % 69.5 Lymphocytes % 14.3 L Monocytes % 7.2 Eosinophils % 5.3 Basophils % 0.7 Nucleated Red Blood Cells % 0.0 Neutrophils # 6.7 Lymphocytes # 1.4 Monocytes # 0.7 Eosinophils # 0.5 Basophils # 0.1 Nucleated Red Blood Cells # 0.0 Sodium Level 133 L Potassium Level 4.0 Chloride Level 90 L Carbon Dioxide Level 35 H Anion Gap 12 Blood Urea Nitrogen 12 Creatinine 0.67 Glucose Level 116 Calcium Level 8.5 Medications Medications Current Medications Acetaminophen (Tylenol Tab) 650 mg Q4H PRN PO pain/fever; Start 07/24/17 at 07 :00; Status Future Hold Phenol (Chloraseptic Throat [place]) 2 spray Q2H PRN MT SORE THROAT Last administered on 07/29/17t 18:10; Admin Dose 2 SPRAY; Start 07/29/17 at 13:00 Diphenhydramine HCl (Benadryl) 25 mg Q6H PRN IV SLEEP Last administered on 08/01 00:19; Admin Dose 25 MG; Start 07/31/17 at 13:00 Chlorpromazine (Thorazine) 10 mg Q6 PRN IM HICCUPS Last administered on 21:21; Admin Dose 10 MG; Start 08/02/17 at 06:00 Loratadine (Claritin) 10 mg DAILY NGT Last administered on 08/25/17 08:52; Admin Dose 10 MG; Start 08/04/17 at 09:00 Hydralazine HCl (Apresoline) 10 mg Q6H PRN IV sbp>170 Last administered on 14:18; Admin Dose 10 MG; Start 08/07/17 at 18:00 Lisinopril (Zestril) 20 mg DAILY PO Last administered on 08/25/17 08:52; Admin Dose 20 MG; Start 08/10/17 at 10:30 Acetaminophen (Tylenol Tab) 650 mg Q4H PRN PO PAIN AND OR ELEVATED TEMP Last administered on 08/19/17 21:02; Admin Dose 650 MG; Start 08/10/17 at 10:30 Ondansetron HCl (Zofran Inj) 4 mg Q6H PRN IV NAUSEA AND/OR VOMITING Last administered on 08/25/17 06:38; Admin Dose 4 MG; Start 08/12/17 at 13:00 Pantoprazole (Protonix Tab) 40 mg DAILY@06 PO Last administered on 08/25/17 06:12; Admin Dose 40 MG; Start 08/16/17 at 06:00 Metoclopramide HCl (Reglan) 10 mg Q6 PRN IV Nausea Last administered on 10:46; Admin Dose 10 MG; Start 08/17/17 at 18:00 Nystatin (Nystatin Susp) 5 ml QID PO Last administered on 08/25/17 08:52; Admin Dose 5 ML; Start 08/20/17 at 13:00 Fluconazole (Diflucan) 100 mg DAILY PO Last administered on 08/25/17 08:52; Admin Dose 100 MG; Start 08/21/17 at 09:00 Hydromorphone HCl (Dilaudid) 2 mg Q3H PRN PO PAIN Last administered on 16:30; Admin Dose 2 MG; Start 08/22/17 at 14:30 Amiodarone HCl (Cordarone) 200 mg DAILY PO Last administered on 08/25/17 08: 52; Admin Dose 200 MG; Start 08/23/17 at 09:00 Carvedilol (Coreg) 6.25 mg BID PO Last administered on 08/25/17 08:52; Admin Dose 6.25 MG; Start 08/22/17 at 21:00 Acetaminophen/ Aspirin/Caffeine (Excedrin) 1 tab Q4H PRN PO HEADACHE; Start at 13:00 Acetaminophen/ Aspirin/Caffeine (Excedrin) 2 tab Q4H PRN PO SEVERE HEADACHE Last administered on 08/25/17 13:18; Admin Dose 2 TAB; Start 08/25/17 at 13: 00 FINESSE UMAÑA Aug 25, 2017 16:47
[2017-08-25 19:25] VITALS: BP 136/73; RESP 16
[2017-08-26 02:11] VITALS: BP 135/61; RESP 16
[2017-08-26] MEDS: HYDROmorphONE 2 MG TAB PO PRN ×5 (02:16→15:35)
[2017-08-26] MEDS: PANTOPRAZOLE (EC) 40 MG TAB PO SCH (05:14)
[2017-08-26 05:33] LABS: BASOPHIL # 0.1 10^3/ul (0.0-0.1); BASOPHILS % 0.5 % (0.0-2.0); EOSINOPHILS # 0.6 10^3/ul (0.0-0.5); EOSINOPHILS % 5.1 % (0.0-7.0); HEMATOCRIT 25.3 % (37.0-47.0); LYMPHOCYTES # 1.3 10^3/ul (0.8-2.9); LYMPHOCYTES % 12.3 % (15.0-51.0); MEAN CORPUSCULAR HEMOGLOBIN 26.9 pg (29.0-33.0); MEAN CORPUSCULAR HGB CONC 31.6 g/dl (32.0-37.0); MEAN CORPUSCULAR VOLUME 85.2 fl (82.0-101.0); MEAN PLATELET VOLUME 9.3 fl (7.4-10.4); MONOCYTE # 0.7 10^3/ul (0.3-0.9); MONOCYTES % 6.2 % (0.0-11.0); NEUTROPHILS % 73.6 % (39.0-77.0); PLATELET COUNT 343 10^3/UL (140-415); RED BLOOD COUNT 2.97 10^6/ul (4.20-5.40); WHITE BLOOD COUNT 10.9 10^3/ul (4.8-10.8)
[2017-08-26 06:02] LABS: CALCIUM 8.4 mg/dl (8.4-10.2); CREATININE 0.71 mg/dl (0.44-1.00); POTASSIUM 4.2 mmol/L (3.5-5.1)
[2017-08-26 07:42] VITALS: BP 119/68; RESP 19
[2017-08-26] MEDS: FLUCONAZOLE 100 MG TAB PO SCH (08:31)
[2017-08-26] MEDS: NYSTATIN SUSP 5 ML CUP PO SCH ×2 (08:31→12:48)
[2017-08-26] MEDS: LISINOPRIL 20 MG TAB PO SCH (08:32)
[2017-08-26] MEDS: AMIODARONE 200 MG TAB PO SCH (08:32)
[2017-08-26] MEDS: LORATADINE 10 MG TAB NGT SCH (08:33)
--- NOTE | 2017-08-26 10:53 | PN ---
Date/Time of Note Date/Time of Note DATE: 08/26/17 TIME: 10:51 Assessment/Plan VTE Prophylaxis VTE Prophylaxis Intervention: SCD's Lines/Catheters IV Catheter Type (from Nrs): Mid Line Central line still needed: Yes Urinary Cath still in place: Yes Reason Cath still needed: pres ulcer contaminated by urine, skin wounds contaminated by urine Assessment/Plan Assessment/Plan 51 yo Obese F admit VPH: 1. SIRS with low grade temps, leukocytosis=> RESOLVED * Status post septic shock. 2. Status post respiratory failure=> STABLE 3. Colon cancer, status post resection with primary anastomosis complicated by anastomotic leak * s/p exploratory laparotomy and drainage of abscesses, partial colectomy with colostomy on 08/05/2017. 4. CHF mixed systolic/diastolic * Left pleural effusion, status post thoracentesis. 5. Atrial fibrillation - Amiodarone onboard 6. Anemia. 7. Oliguric EJ due to ATN from Shock => IMPROVING 8. Oral candidiasis/thrush: treated. 9. Disposition: to SNF today for PT/OT. Subjective 24 Hr Interval Summary Free Text/Dictation Doing well. Eating breakfast and awaiting placement to a SNF today. Exam/Review of Systems Vital Signs Vitals Vital Signs Date Time Temp Pulse Resp B/P Pulse Ox O2 Delivery O2 Flow Rate FiO2 08/26/17 07:42 98.3 72 19 119/68 96 08/25/17 23:30 3.0 08/25/17 20:00 Nasal Cannula Intake and Output 08/25/17 08/25/17 08/26/17 15:00 23:00 07:00 Intake Total 1800 ml 880 ml Output Total 1925 ml 1270 ml Balance -125 ml -390 ml Exam Constitutional: alert, oriented Psych: no complaints Head: normocephalic Eyes: nl conjunctiva ENMT: nl external ears & nose Neck: supple Respiratory: clear to auscultation Cardiovascular: regular rate and rhythm Gastrointestinal: other (wounds are clean, dry and intact), soft Extremities: normal pulses Neurological: SALES CLERK II-XII intact Results Result Diagram: 08/26/17 0454 08/26/17 0454 Results 24 hrs Laboratory Tests Test 08/26/17 04:54 White Blood Count 10.9 H Red Blood Count 2.97 L Hemoglobin 8.0 L Hematocrit 25.3 L Mean Corpuscular Volume 85.2 Mean Corpuscular Hemoglobin 26.9 L Mean Corpuscular Hemoglobin Concent 31.6 L Red Cell Distribution Width 20.0 H Platelet Count 343 Mean Platelet Volume 9.3 Neutrophils % 73.6 Lymphocytes % 12.3 L Monocytes % 6.2 Eosinophils % 5.1 Basophils % 0.5 Nucleated Red Blood Cells % 0.0 Neutrophils # 8.0 H Lymphocytes # 1.3 Monocytes # 0.7 Eosinophils # 0.6 H Basophils # 0.1 Nucleated Red Blood Cells # 0.0 Sodium Level 132 L Potassium Level 4.2 Chloride Level 91 L Carbon Dioxide Level 34 H Anion Gap 11 Blood Urea Nitrogen 13 Creatinine 0.71 Glucose Level 109 Calcium Level 8.4 Medications Medications Current Medications Acetaminophen (Tylenol Tab) 650 mg Q4H PRN PO pain/fever; Start 07/24/17 at 07 :00; Status Future Hold Phenol (Chloraseptic Throat [place]) 2 spray Q2H PRN MT SORE THROAT Last administered on 07/29/17 18:10; Admin Dose 2 SPRAY; Start 07/29/17 at 13:00 Diphenhydramine HCl (Benadryl) 25 mg Q6H PRN IV SLEEP Last administered on 08/01 00:19; Admin Dose 25 MG; Start 07/31/17 at 13:00 Chlorpromazine (Thorazine) 10 mg Q6 PRN IM HICCUPS Last administered on 21:21; Admin Dose 10 MG; Start 08/02/17 at 06:00 Loratadine (Claritin) 10 mg DAILY NGT Last administered on 08/26/17 08:33; Admin Dose 10 MG; Start 08/04/17 at 09:00 Hydralazine HCl (Apresoline) 10 mg Q6H PRN IV sbp>170 Last administered on 14:18; Admin Dose 10 MG; Start 08/07/17 at 18:00 Lisinopril (Zestril) 20 mg DAILY PO Last administered on 08/26/17 08:32; Admin Dose 20 MG; Start 08/10/17 at 10:30 Acetaminophen (Tylenol Tab) 650 mg Q4H PRN PO PAIN AND OR ELEVATED TEMP Last administered on 08/19/17 21:02; Admin Dose 650 MG; Start 08/10/17 at 10:30 Ondansetron HCl (Zofran Inj) 4 mg Q6H PRN IV NAUSEA AND/OR VOMITING Last administered on 08/25/17 20:55; Admin Dose 4 MG; Start 08/12/17 at 13:00 Pantoprazole (Protonix Tab) 40 mg DAILY@06 PO Last administered on 08/26/17 05:14; Admin Dose 40 MG; Start 08/16/17 at 06:00 Metoclopramide HCl (Reglan) 10 mg Q6 PRN IV Nausea Last administered on 10:46; Admin Dose 10 MG; Start 08/17/17 at 18:00 Nystatin (Nystatin Susp) 5 ml QID PO Last administered on 08/26/17 08:31; Admin Dose 5 ML; Start 08/20/17 at 13:00 Fluconazole (Diflucan) 100 mg DAILY PO Last administered on 08/26/17 08:31; Admin Dose 100 MG; Start 08/21/17 at 09:00 Hydromorphone HCl (Dilaudid) 2 mg Q3H PRN PO PAIN Last administered on 08:56; Admin Dose 2 MG; Start 08/22/17 at 14:30 Amiodarone HCl (Cordarone) 200 mg DAILY PO Last administered on 08/26/17 08: 32; Admin Dose 200 MG; Start 08/23/17 at 09:00 Carvedilol (Coreg) 6.25 mg BID PO Last administered on 08/26/17 08:32; Admin Dose 6.25 MG; Start 08/22/17 at 21:00 Acetaminophen/ Aspirin/Caffeine (Excedrin) 1 tab Q4H PRN PO HEADACHE; Start at 13:00 Acetaminophen/ Aspirin/Caffeine (Excedrin) 2 tab Q4H PRN PO SEVERE HEADACHE Last administered on 08/25/17 13:18; Admin Dose 2 TAB; Start 08/25/17 at 13: 00 GUZMAN LUGO MD Aug 26, 2017 10:53
--- NOTE | 2017-08-26 12:40 | CONS ---
Date/Time of Note Date/Time of Note DATE: 08/26/17 TIME: 12:38 Assessment/Plan Assessment/Plan Chief Complaint/Hosp Course SUBJECTIVE: Patient is awake, complaining of headaches, looks comfortable, no fevers MICROBIOLOGY: VITA fluid grew Enterobacter cloacae, MRSA and Enterococcus species. ANTIMICROBIALS: Diflucan s/p Vancomycin, Meropenem. INDWELLINGS: Leal, VITA, colostomy. PHYSICAL EXAMINATION: GENERAL: Obese, well-developed, ill-appearing, middle-aged woman who is in no distress. HEENT: Head atraumatic, normocephalic. Sclerae anicteric. Buccal mucosa dry. NECK: Supple. CHEST: Rise symmetrical. Breath sounds with bilateral crackles. HEART: S1, S2. ABDOMEN: Soft, bowel tones present. EXTREMITIES: Without cyanosis. ASSESSMENT: 1. S/p sepsis 3. Status post respiratory failure. 4. Colon cancer, status post resection complicated by anastomotic leak, status post exploratory laparotomy, drainage of abscesses and partial colectomy with colostomy on 08/05/2017. 5. Obesity. 6. Status post thoracentesis for left pleural effusion. 7. Oral candidiasis PLAN:Remains stable, off abx, continue present care, Diflucan and Nystatin for oral thrush, PT, f/u surgical rec-s DW pt/staff Problems: Consultation Date/Type/Reason Admit Date/Time Jul 24, 2017 at 06:16 Initial Consult Date 08/05/17 Type of Consultation: ID Referring Provider: RAE CALVO Exam/Review of Systems Vital Signs Vitals Vital Signs Date Time Temp Pulse Resp B/P Pulse Ox O2 Delivery O2 Flow Rate FiO2 08/26/17 09:00 Nasal Cannula 2.0 08/26/17 07:42 98.3 72 19 119/68 96 Intake and Output 08/25/17 08/25/17 08/26/17 15:00 23:00 07:00 Intake Total 1800 ml 880 ml Output Total 1925 ml 1270 ml Balance -125 ml -390 ml Results Result Diagram: 08/26/17 0454 08/26/17 0454 Results 24 hrs Laboratory Tests Test 08/26/17 04:54 White Blood Count 10.9 H Red Blood Count 2.97 L Hemoglobin 8.0 L Hematocrit 25.3 L Mean Corpuscular Volume 85.2 Mean Corpuscular Hemoglobin 26.9 L Mean Corpuscular Hemoglobin Concent 31.6 L Red Cell Distribution Width 20.0 H Platelet Count 343 Mean Platelet Volume 9.3 Neutrophils % 73.6 Lymphocytes % 12.3 L Monocytes % 6.2 Eosinophils % 5.1 Basophils % 0.5 Nucleated Red Blood Cells % 0.0 Neutrophils # 8.0 H Lymphocytes # 1.3 Monocytes # 0.7 Eosinophils # 0.6 H Basophils # 0.1 Nucleated Red Blood Cells # 0.0 Sodium Level 132 L Potassium Level 4.2 Chloride Level 91 L Carbon Dioxide Level 34 H Anion Gap 11 Blood Urea Nitrogen 13 Creatinine 0.71 Glucose Level 109 Calcium Level 8.4 Medications Medications Current Medications Acetaminophen (Tylenol Tab) 650 mg Q4H PRN PO pain/fever; Start 07/24/17 at 07 :00; Status Future Hold Phenol (Chloraseptic Throat [place]) 2 spray Q2H PRN MT SORE THROAT Last administered on 07/29/17 18:10; Admin Dose 2 SPRAY; Start 07/29/17 at 13:00 Diphenhydramine HCl (Benadryl) 25 mg Q6H PRN IV SLEEP Last administered on 08/01 00:19; Admin Dose 25 MG; Start 07/31/17 at 13:00 Chlorpromazine (Thorazine) 10 mg Q6 PRN IM HICCUPS Last administered on 21:21; Admin Dose 10 MG; Start 08/02/17 at 06:00 Loratadine (Claritin) 10 mg DAILY NGT Last administered on 08/26/17 08:33; Admin Dose 10 MG; Start 08/04/17 at 09:00 Hydralazine HCl (Apresoline) 10 mg Q6H PRN IV sbp>170 Last administered on 14:18; Admin Dose 10 MG; Start 08/07/17 at 18:00 Lisinopril (Zestril) 20 mg DAILY PO Last administered on 08/26/17 08:32; Admin Dose 20 MG; Start 08/10/17 at 10:30 Acetaminophen (Tylenol Tab) 650 mg Q4H PRN PO PAIN AND OR ELEVATED TEMP Last administered on 08/19/17 21:02; Admin Dose 650 MG; Start 08/10/17 at 10:30 Ondansetron HCl (Zofran Inj) 4 mg Q6H PRN IV NAUSEA AND/OR VOMITING Last administered on 08/25/17 20:55; Admin Dose 4 MG; Start 08/12/17 at 13:00 Pantoprazole (Protonix Tab) 40 mg DAILY@06 PO Last administered on 08/26/17 05:14; Admin Dose 40 MG; Start 08/16/17 at 06:00 Metoclopramide HCl (Reglan) 10 mg Q6 PRN IV Nausea Last administered on 10:46; Admin Dose 10 MG; Start 08/17/17 at 18:00 Nystatin (Nystatin Susp) 5 ml QID PO Last administered on 08/26/17 08:31; Admin Dose 5 ML; Start 08/20/17 at 13:00 Fluconazole (Diflucan) 100 mg DAILY PO Last administered on 08/26/17 08:31; Admin Dose 100 MG; Start 08/21/17 at 09:00 Hydromorphone HCl (Dilaudid) 2 mg Q3H PRN PO PAIN Last administered on 08:56; Admin Dose 2 MG; Start 08/22/17 at 14:30 Amiodarone HCl (Cordarone) 200 mg DAILY PO Last administered on 08/26/17 08: 32; Admin Dose 200 MG; Start 08/23/17 at 09:00 Carvedilol (Coreg) 6.25 mg BID PO Last administered on 08/26/17 08:32; Admin Dose 6.25 MG; Start 08/22/17 at 21:00 Acetaminophen/ Aspirin/Caffeine (Excedrin) 1 tab Q4H PRN PO HEADACHE; Start at 13:00 Acetaminophen/ Aspirin/Caffeine (Excedrin) 2 tab Q4H PRN PO SEVERE HEADACHE Last administered on 08/25/17 13:18; Admin Dose 2 TAB; Start 08/25/17 at 13: 00 YG TARANGO NP Aug 26, 2017 12:40
--- NOTE | 2017-08-26 14:29 | CONS ---
Date/Time of Note Date/Time of Note DATE: 08/26/17 TIME: 14:28 Assessment/Plan Assessment/Plan Additional Assessment/Plan Paroxysmal atrial fibrillation, currently sinus Acute decompensated systolic and diastolic congestive heart failure, improved Low normal ejection fraction 50% Colon mass status post colon surgery July 26, 2017 and repeat August 05, 2017 Acute kidney injury, improved Sepsis Vent dependent respiratory failure, status post extubation -Patient remains in sinus rhythm, on amiodarone/coreg. Ideally maintain potassium above 4.0 and magnesium above 2.0. Would restart maintenance diuretics if no contraindication. Restart anticoagulation when okay by our surgery colleagues. Consultation Date/Type/Reason Admit Date/Time Jul 24, 2017 at 06:16 Initial Consult Date 07/29/17 Type of Consultation: cv Referring Provider: RAE CALVO 24 HR Interval Summary Free Text/Dictation Denies shortness of breath, chest pain or palpitations. Feeling better. Exam/Review of Systems Vital Signs Vitals Vital Signs Date Time Temp Pulse Resp B/P Pulse Ox O2 Delivery O2 Flow Rate FiO2 08/26/17 12:43 3.0 08/26/17 09:00 Nasal Cannula 08/26/17 07:42 98.3 72 19 119/68 96 Intake and Output 08/25/17 08/25/17 08/26/17 14:59 22:59 06:59 Intake Total 1800 ml 880 ml Output Total 1925 ml 1270 ml Balance -125 ml -390 ml Exam No apparent distress Constitutional: alert, oriented Head: normocephalic Respiratory: other (Coarse breath sounds bilaterally, no wheezing) Cardiovascular: other (S1-S2 heard), regular rate and rhythm Gastrointestinal: bowel sounds, non-tender, soft Extremities: edema Results Result Diagram: 08/26/17 0454 08/26/17 0454 Results 24 hrs Laboratory Tests Test 08/26/17 04:54 White Blood Count 10.9 H Red Blood Count 2.97 L Hemoglobin 8.0 L Hematocrit 25.3 L Mean Corpuscular Volume 85.2 Mean Corpuscular Hemoglobin 26.9 L Mean Corpuscular Hemoglobin Concent 31.6 L Red Cell Distribution Width 20.0 H Platelet Count 343 Mean Platelet Volume 9.3 Neutrophils % 73.6 Lymphocytes % 12.3 L Monocytes % 6.2 Eosinophils % 5.1 Basophils % 0.5 Nucleated Red Blood Cells % 0.0 Neutrophils # 8.0 H Lymphocytes # 1.3 Monocytes # 0.7 Eosinophils # 0.6 H Basophils # 0.1 Nucleated Red Blood Cells # 0.0 Sodium Level 132 L Potassium Level 4.2 Chloride Level 91 L Carbon Dioxide Level 34 H Anion Gap 11 Blood Urea Nitrogen 13 Creatinine 0.71 Glucose Level 109 Calcium Level 8.4 Medications Medications Current Medications Acetaminophen (Tylenol Tab) 650 mg Q4H PRN PO pain/fever; Start 07/24/17 at 07 :00; Status Future Hold Phenol (Chloraseptic Throat [place]) 2 spray Q2H PRN MT SORE THROAT Last administered on 07/29/17 18:10; Admin Dose 2 SPRAY; Start 07/29/17 at 13:00 Diphenhydramine HCl (Benadryl) 25 mg Q6H PRN IV SLEEP Last administered on 08/01 00:19; Admin Dose 25 MG; Start 07/31/17 at 13:00 Chlorpromazine (Thorazine) 10 mg Q6 PRN IM HICCUPS Last administered on 21:21; Admin Dose 10 MG; Start 08/02/17 at 06:00 Loratadine (Claritin) 10 mg DAILY NGT Last administered on 08/26/17 08:33; Admin Dose 10 MG; Start 08/04/17 at 09:00 Hydralazine HCl (Apresoline) 10 mg Q6H PRN IV sbp>170 Last administered on 14:18; Admin Dose 10 MG; Start 08/07/17 at 18:00 Lisinopril (Zestril) 20 mg DAILY PO Last administered on 08/26/17 08:32; Admin Dose 20 MG; Start 08/10/17 at 10:30 Acetaminophen (Tylenol Tab) 650 mg Q4H PRN PO PAIN AND OR ELEVATED TEMP Last administered on 08/19/17 21:02; Admin Dose 650 MG; Start 08/10/17 at 10:30 Ondansetron HCl (Zofran Inj) 4 mg Q6H PRN IV NAUSEA AND/OR VOMITING Last administered on 08/25/17 20:55; Admin Dose 4 MG; Start 08/12/17 at 13:00 Pantoprazole (Protonix Tab) 40 mg DAILY@06 PO Last administered on 08/26/17 05:14; Admin Dose 40 MG; Start 08/16/17 at 06:00 Metoclopramide HCl (Reglan) 10 mg Q6 PRN IV Nausea Last administered on 10:46; Admin Dose 10 MG; Start 08/17/17 at 18:00 Nystatin (Nystatin Susp) 5 ml QID PO Last administered on 08/26/17 12:48; Admin Dose 5 ML; Start 08/20/17 at 13:00 Fluconazole (Diflucan) 100 mg DAILY PO Last administered on 08/26/17 08:31; Admin Dose 100 MG; Start 08/21/17 at 09:00 Hydromorphone HCl (Dilaudid) 2 mg Q3H PRN PO PAIN Last administered on 12:48; Admin Dose 2 MG; Start 08/22/17 at 14:30 Amiodarone HCl (Cordarone) 200 mg DAILY PO Last administered on 08/26/17 08: 32; Admin Dose 200 MG; Start 08/23/17 at 09:00 Carvedilol (Coreg) 6.25 mg BID PO Last administered on 08/26/17 08:32; Admin Dose 6.25 MG; Start 08/22/17 at 21:00 Acetaminophen/ Aspirin/Caffeine (Excedrin) 1 tab Q4H PRN PO HEADACHE; Start at 13:00 Acetaminophen/ Aspirin/Caffeine (Excedrin) 2 tab Q4H PRN PO SEVERE HEADACHE Last administered on 08/25/17 13:18; Admin Dose 2 TAB; Start 08/25/17 at 13: 00 Fercho Mojica DO Aug 26, 2017 14:29
--- NOTE | 2017-08-26 15:44 | PDOCDIS ---
Discharge Instructions DIAGNOSIS Discharge Diagnosis Paroxysmal atrial fibrillation, currently sinus Acute decompensated systolic and diastolic congestive heart failure, improved Low normal ejection fraction 50% Colon mass status post colon surgery July 26, 2017 and repeat August 05, 2017 Acute kidney injury, improved Sepsis Vent dependent respiratory failure, status post extubation CONDITION Patient Condition: Fair HOME CARE INSTRUCTIONS: Diet Instructions: RegularSpecial Diet: regular ACTIVITY: Activity Restrictions: Slowly Increase Activity FOLLOW UP/APPOINTMENTS Follow-up Plan Patient is discharged to Dr. Kd Vigil's care at the [facility]. Follow-up will be with her surgeon Dr. Daniel Aldana, with her oncologist Sonal Padilla MD, and with her primary care doctor (Dr. Eula Byrd) in the next two weeks. JAVIER HOWELL M.D. Aug 26, 2017 15:44
--- NOTE | 2017-08-26 15:47 | DS ---
Date/Time of Note Date/Time of Note DATE: 08/26/17 TIME: 15:46 Discharge Summary Admission/Discharge Info Admit Date/Time Jul 24, 2017 at 06:16 Discharge Date/Time Aug 26, 2017 Discharge Diagnosis Paroxysmal atrial fibrillation, currently sinus Acute decompensated systolic and diastolic congestive heart failure, improved Low normal ejection fraction 50% Colon mass status post colon surgery July 26, 2017 and repeat August 05, 2017 Acute kidney injury, improved Sepsis Vent dependent respiratory failure, status post extubation Patient Condition: Good Consults Smith Verduzco NP with Dr. 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 She presented to the emergency department with rectal bleeding, abdominal pain, shortness of breath, dizziness and a severe anemia with a hemoglobin of 6.6. Over the 3 days preceding admission she had been dizzy, but the dizziness worsened the day prior to admission with dyspnea on exertion. She had been having rectal bleeding for some time, with rectal pain radiating up toward her abdomen and episodes of nausea. The patient did have cardiology evaluation by Dr. Luis Kim as an outpatient the preceding Saturday and was risk stratified and cleared for colon surgery procedure. Hospital Course She was treated emergently for low grade temps and leukocytosis thought to be consistent with Systemic Inflammatory Response Syndrome and septic shock. She was intubated for respiratory failure, and responded to aggressive management. She was eventually extubated and experienced gradual recovery but with persistent severe abdominal pain. She underwent resection of the colon tumor with primary anastomosis, which was complicated by an anastomotic leak that led to exploratory laparotomy and drainage of abscesses, and partial colectomy with colostomy on 08/05/2017. Her recovery was complicated by congestive heart failure due to mixed systolic/diastolic dysfunction, under the advice of Dr. Mojica and his Cardiology Service. She demonstrated paroxysmal atrial fibrillation that responded well to amiodarone, and she is stably in sinus rhythm now at the time of discharge. Her left pleural effusion also contributed to her respiratory insufficiency, and required thoracentesis. Anemia was also a contributing factor, secondary in part to her cancer-related rectal bleeding and to the oliguric acute kidney injury due to ATN from shock. She was treated for oral candidiasis/thrush with Diflucan and Nystatin. Her marine engineer cpvec recommended that the patient remain on amiodarone and Coreg, and that ideally she maintain her potassium above 4.0 and magnesium above 2.0. He recommended restarting her maintenance diuretics if there was no contraindication, and anticoagulation when agreed by the general surgeon. Diflucan and Nystatin can be used until oral thrush is resolved. Home Meds Active Scripts Hydromorphone Hcl* (Dilaudid*) 2 Mg Tablet, 2 MG PO Q4H Y for PAIN, #120 TAB Prov:JAVIER HOWELL M.D. 08/26/17 Nystatin (Nystatin) 100,000 Unit/1 Ml Oral.susp, 5 ML PO QID for 7 Days Prov:FINESSE UMAÑA 08/24/17 Reported Medications Loratadine* (Loratadine*) 10 Mg Tablet, 10 MG PO DAILY, #30 TAB 07/24/17 Simethicone (GAS-X ULTRA STRENGTH) 180 Mg Capsule, 180 MG PO, CAP 07/24/17 Acetaminophen* (Acetaminophen*) 500 MG Extra Strength Tablet, 500 MG PO Q4H Y for PAIN AND OR ELEVATED TEMP, TAB 07/24/17 Ibuprofen* (Ibuprofen*) 200 Mg Capsule, 200 MG PO QID Y for PAIN, CAP 07/24/17 Digoxin* (Digox*) 125 Mcg Tablet, 0.125 MG PO DAILY, TAB 07/24/17 Lisinopril* (Lisinopril*) 20 Mg Tablet, 20 MG PO DAILY, #30 TAB 07/24/17 Spironolactone* (Aldactone*) 25 Mg Tablet, 25 MG PO DAILY, #30 TAB TAKE HALF TABLET(12.5MG) PO DAILY 07/24/17 Furosemide* (Furosemide*) 40 Mg Tablet, 40 MG PO DAILY, TAB 07/24/17 Follow-up Plan Patient is being discharged to the care of Dr. Kd Vigil at [facility]. Follow-up with her surgeon Dr. Daniel Aldana, with her oncologist Sonal Padilla MD, and with her primary care doctor (Dr. Eula Byrd) anticipated in the next two weeks. Primary Care Provider Dr. Eula Byrd Time spent on discharge: > 30 minutes Pending Labs Laboratory Tests Test 08/26/17 04:54 White Blood Count 10.910^3/ul (4.8-10.8) Red Blood Count 2.9710^6/ul (4.20-5.40) Hemoglobin 8.0g/dl (12.0-16.0) Hematocrit 25.3% (37.0-47.0) Mean Corpuscular Volume 85.2fl (82.0-101.0) Mean Corpuscular Hemoglobin 26.9pg (29.0-33.0) Mean Corpuscular Hemoglobin Concent 31.6g/dl (32.0-37.0) Red Cell Distribution Width 20.0% (11.5-14.5) Platelet Count 45672^3/UL (140-415) Mean Platelet Volume 9.3fl (7.4-10.4) Neutrophils % 73.6% (39.0-77.0) Lymphocytes % 12.3% (15.0-51.0) Monocytes % 6.2% (0.0-11.0) Eosinophils % 5.1% (0.0-7.0) Basophils % 0.5% (0.0-2.0) Nucleated Red Blood Cells % 0.0/100WBC (0.0-0.0) Neutrophils # 8.010^3/ul (1.6-7.5) Lymphocytes # 1.310^3/ul (0.8-2.9) Monocytes # 0.710^3/ul (0.3-0.9) Eosinophils # 0.610^3/ul (0.0-0.5) Basophils # 0.110^3/ul (0.0-0.1) Nucleated Red Blood Cells # 0.010^3/ul (0.0-0.0) Sodium Level 132mmol/L (135-144) Potassium Level 4.2mmol/L (3.5-5.1) Chloride Level 91mmol/L (97-110) Carbon Dioxide Level 34mmol/L (21-31) Anion Gap 11 (8-16) Blood Urea Nitrogen 13mg/dl (7-20) Creatinine 0.71mg/dl (0.44-1.00) Glucose Level 109mg/dl (70-220) Calcium Level 8.4mg/dl (8.4-10.2) JAVIER HOWELL M.D. Aug 26, 2017 15:47
[2017-08-26] MEDS ORDERED: HYDR2TAB36 PO (16:18)
--- NOTE | 2017-08-26 20:37 | CONS ---
Date/Time of Note Date/Time of Note DATE: 08/26/17 TIME: 20:36 Assessment/Plan Assessment/Plan Additional Assessment/Plan 1. Oliguric EJ due to ATN from Shock- Multifactorial septic from peritonitis + Hemorrhagic- Improving, making good urine 2. Acute hyperkalemia due to EJ- Resolved 3. Metabolic acidosis with lactic acidosis- Improved much better, 4. acute resp failure, possible Asp PNA vs HCAP - pt remained on ventilator post operatively ,s/p US throacentesis 400 cc removed from left chest on - s/p extubation on 08/09/17 5. Septic shock requiring pressors, now off levophed 6. Status post Left hemicolectomy for sigmoid adenocarcinoma/mass POD#7, s/p total of 4 units pRBC since admission. - again pt underwent Exploratory laparotomy with intra- abdominal abscess drainage, Placement of percutaneous Maurisio drains #19 x2. , Partial colectomy.Formation of end colostomy with Corona's pouch. on 08/05/17 7. Atrial fibrillation 8. Chronic diastolic heart failure with EF 55% 9. Hypocalcemia with hypoalbuminemia 10. Hypernatremia - resolved with D5W Plan: - s/p Bumex gtt with IV albumin 08/13/17- HCo3 improving,Cr normal, good urine output Monitor electrolytes and Replace as needed will continue to follow up along with other subspecialist possible d/c to SNF today Consultation Date/Type/Reason Admit Date/Time Jul 24, 2017 at 06:16 Initial Consult Date 08/05/17 Type of Consultation: NEPHROLOGY Referring Provider: RAE CALVO 24 HR Interval Summary Free Text/Dictation pt was seen early in AM< plan for SNF transfer today Exam/Review of Systems Vital Signs Vitals Vital Signs Date Time Temp Pulse Resp B/P Pulse Ox O2 Delivery O2 Flow Rate FiO2 08/26/17 12:43 3.0 08/26/17 09:00 Nasal Cannula 08/26/17 07:42 98.3 72 19 119/68 96 Intake and Output 08/25/17 08/25/17 08/26/17 15:00 23:00 07:00 Intake Total 1800 ml 880 ml Output Total 1925 ml 1270 ml Balance -125 ml -390 ml Exam GENERAL: alert, awake, No acute distress HEENT: [place], EOMI CHEST: Rise symmetrical. Breath sounds diminished to bases. HEART: S1, S2. ABDOMEN: Soft, bowel tones present. back swelling + EXTREMITIES: With bilateral edema lower extremities.1 Results Result Diagram: 08/26/17 0454 08/26/17 0454 Results 24 hrs Laboratory Tests Test 08/26/17 04:54 White Blood Count 10.9 H Red Blood Count 2.97 L Hemoglobin 8.0 L Hematocrit 25.3 L Mean Corpuscular Volume 85.2 Mean Corpuscular Hemoglobin 26.9 L Mean Corpuscular Hemoglobin Concent 31.6 L Red Cell Distribution Width 20.0 H Platelet Count 343 Mean Platelet Volume 9.3 Neutrophils % 73.6 Lymphocytes % 12.3 L Monocytes % 6.2 Eosinophils % 5.1 Basophils % 0.5 Nucleated Red Blood Cells % 0.0 Neutrophils # 8.0 H Lymphocytes # 1.3 Monocytes # 0.7 Eosinophils # 0.6 H Basophils # 0.1 Nucleated Red Blood Cells # 0.0 Sodium Level 132 L Potassium Level 4.2 Chloride Level 91 L Carbon Dioxide Level 34 H Anion Gap 11 Blood Urea Nitrogen 13 Creatinine 0.71 Glucose Level 109 Calcium Level 8.4 MEKA ROBERTSON MD Aug 26, 2017 20:37
== END 2017-08-26 16:45 | DRG 329 ==
LOC: E/R 22:42 → MS4 07-24 06:16 → ICU 07-29 08:17 → TEL 08-01 18:15 → ICU 08-05 17:05 → TEL 08-10 17:52 → MS1 08-22 17:15
PROVIDERS: ADMIT Internal Medicine; ATTEND Legal Medicine
PROC: 30233N1 Transfusion of Nonautologous Red Blood Cells into Peripheral Vein, Percutaneous Approach (ICD-10-PCS; 2017-07-24)
PROC: 0DNU4ZZ Release Omentum, Percutaneous Endoscopic Approach (ICD-10-PCS; 2017-07-26)
PROC: 0DUE07Z Supplement Large Intestine with Autologous Tissue Substitute, Open Approach (ICD-10-PCS; 2017-07-26)
PROC: 5A1955Z Respiratory Ventilation, Greater than 96 Consecutive Hours (ICD-10-PCS; 2017-07-26)
PROC: 0DTG0ZZ Resection of Left Large Intestine, Open Approach (ICD-10-PCS; principal; 2017-07-26 12:30)
PROC: 0D1L0Z4 Bypass Transverse Colon to Cutaneous, Open Approach (ICD-10-PCS; 2017-08-05)
PROC: 0DBL0ZZ Excision of Transverse Colon, Open Approach (ICD-10-PCS; 2017-08-05)
PROC: 0W9B3ZX Drainage of Left Pleural Cavity, Percutaneous Approach, Diagnostic (ICD-10-PCS; 2017-08-08)
DX: C18.7 Malignant neoplasm of sigmoid colon (principal); N17.0 Acute kidney failure with tubular necrosis; R65.21 Severe sepsis with septic shock; J96.01 Acute respiratory failure with hypoxia; A41.9 Sepsis, unspecified organism; J90 Pleural effusion, not elsewhere classified; K65.9 Peritonitis, unspecified; I50.43 Acute on chronic combined systolic (congestive) and diastolic (congestive) heart failure; E87.2 Acidosis; K56.0 Paralytic ileus; K62.5 Hemorrhage of anus and rectum; D62 Acute posthemorrhagic anemia; T81.4XXA Infection following a procedure, initial encounter; L02.211 Cutaneous abscess of abdominal wall; E87.0 Hyperosmolality and hypernatremia; B37.0 Candidal stomatitis; K91.89 Other postprocedural complications and disorders of digestive system; I48.0 Paroxysmal atrial fibrillation; I11.0 Hypertensive heart disease with heart failure; E78.5 Hyperlipidemia, unspecified; E87.5 Hyperkalemia; E83.51 Hypocalcemia; Y83.2 Surgical operation with anastomosis, bypass or graft as the cause of abnormal reaction of the patient, or of later complication, without mention of misadventure at the time of the procedure; Y92.238 Other place in hospital as the place of occurrence of the external cause; E88.09 Other disorders of plasma-protein metabolism, not elsewhere classified; K66.0 Peritoneal adhesions (postprocedural) (postinfection); E87.6 Hypokalemia; B96.20 Unspecified Escherichia coli [E. coli] as the cause of diseases classified elsewhere; B95.2 Enterococcus as the cause of diseases classified elsewhere; B95.62 Methicillin resistant Staphylococcus aureus infection as the cause of diseases classified elsewhere; E66.9 Obesity, unspecified; Z68.37 Body mass index [BMI] 37.0-37.9, adult; Z79.01 Long term (current) use of anticoagulants
CPT/HCPCS: 32555; 36430; 36600; 71010; 71275; 74000; 74177; 76775; 80048; 80053; 80162; 80202; 81001; 82607; 82728; 82746; 82803; 82945; 82962; 83540; 83605; 83615; 83735; 83880; 84100; 84157; 85014; 85018; 85025; 85045; 85610; 85730; 86078; 86850; 86900; 86901; 86920; 87040; 87070; 87075; 87081; 87086; 87102; 87116; 88300; 88307; 89051; 92526; 92610; 93005; 93306; 93970; 94002; 94003; 94640; 94770; 96361; 96374; 96375; 96376; 97110; 97162; 97163; 97530; J1120; J1940; A4310; C9113; J0131; J0282; J0360; J0610; J0744; J1100; J1170; J1200; J1644; J1650; J1885; J1956; J2175; J2185; J2250; J2270; J2370; J2405; J2710; J2765; J2795; J2916; J3010; J3370; J3475; J3480; J7030; J7040; J7042; J7050; J7060; P9016; P9045; P9047; P9059; Q9967

== ENCOUNTER 2017-09-13 10:27 | Inpatient (IN) | END 2017-10-12 18:25 | disposition home health service (06) | DRG 862 ==

== ENCOUNTER 2018-02-15 05:18 | Inpatient (IN) | END 2018-02-22 15:35 | disposition home health service (06) | DRG 393 ==